=== PATIENT | male | born 1945 | race Caucasian/White ===

== ENCOUNTER 2017-08-10 11:54 | Inpatient (IN) | payer MEDICARE, OTHER ==
--- NOTE | 2017-08-10 12:48 | PDOC ---
History of Present Illness - General Chief Complaint: Rectal Bleed Stated Complaint: BLOOD IN STOOL Time Seen by Provider: 08/10/17 12:00 - History of Present Illness Initial Comments: 08/10/17 12:43 Patient is 71 y.o. male with a PMH of AFib (on Eloquis), CAD (s/p CABG), Aortic Valve Replacement (patient uncertain if prosthetic or mechanical valve) and COPD (/ to 05/18 exposure), CKD and recently diagnosed CHF who presents to our ED today c/o c/o 1 day h/o of rectal bleed (dark red blood) as well as intermittent abdominal cramping and increased urgency for bowel movement. Patient states he first noticed the blood yesterday evening and it continued through this morning (bloody BM x4) prompting his visit to the ED. Patient is tolerating PO intake and denies any nausea, vomiting, diarrhea or constipation. Patient states he had a colonoscopy 5 years previous which was normal. Of note, patient was evaluated @ [place] ED on 07/31 for B/L LE swelling at which time he left AMA. NKDA Surgical: denies FH: Diverticulitis in daughter and mother Social: denies cigarettes, denies alcohol, denies recreational drugs PMD: Dr. Aldrich; [facility] Restorer: Dr. Peggy Yuen Past History - Past Medical History Allergies/Adverse Reactions: Allergies Allergy/AdvReac Type Severity Reaction Status Date / Time No Known Allergies Allergy Verified 08/10/17 12:02 Home Medications: Ambulatory Orders Albuterol 0.083% Nebulizer Kristyn [Ventolin 0.083%] 1 neb NEB QID PRN 04/02/16 Apixaban [Eliquis] 5 mg PO BID 04/02/16 Aspirin [ASA -] 81 mg PO DAILY 04/02/16 Atorvastatin Calcium 20 mg PO HS 04/02/16 Azelastine HCl [Astepro] 1 - 2 spr NS BID 04/02/16 Budesonide/Formeterol Fumarate [SYMBICORT 160/4.5mcg -] 1 inh PO DAILY 04/02/16 Cholecalciferol (Vitamin D3) [Vitamin D3 -] 3,000 unit PO DAILY 04/02/16 Ethambutol HCl [Myambutol -] 400 mg PO DAILY 04/02/16 Furosemide [Lasix -] 20 mg PO DAILY 04/02/16 Hydralazine HCl [Apresoline -] 50 mg PO BID 04/02/16 Levalbuterol Tartrate [Xopenex Hfa] 15 gm IH DAILY PRN 04/02/16 Metoprolol Succinate [Toprol Xl -] 25 mg PO DAILY 04/02/16 Montelukast Na [Singulair -] 10 mg PO HS 04/02/16 Omeprazole [Prilosec] 40 mg PO BID 04/02/16 Tamsulosin HCl [Flomax] 0.4 mg PO HS 04/02/16 Tiotropium [place] [Spiriva] 1 inh PO DAILY 04/02/16 Trazodone HCl [Desyrel -] 100 mg PO HS 04/02/16 Zolpidem Tartrate [Ambien] 10 mg PO HS 04/02/16 Valsartan 320 mg PO DAILY 08/10/17 Cardiac Disorders: Yes (chf) COPD: Yes HTN: Yes - Surgical History Cardiac Surgery: Yes (tripple bipass ppmd) Neurologic Surgery: Yes (back) - Immunization History Immunization Up to Date: Yes - Suicide/Smoking/Psychosocial Hx Smoking History: Former smoker Have you smoked in the past 12 months: No Information on smoking cessation initiated: No Hx Alcohol Use: No Drug/Substance Use Hx: No Substance Use Type: None Review of Systems - Review of Systems Constitutional: No: Chills, Fever Respiratory: No: Shortness of Breath Cardiac (ROS): No: Chest Pain ABD/GI: Yes: Blood Streaked Bowels, Abdominal cramping. No: Constipated, Diarrhea, Nausea, Vomiting : No: Burning, Dysuria All Other Systems: Reviewed and Negative *Physical Exam - Vital Signs Last Vital Signs Temp Pulse Resp BP Pulse Ox 97.7 F 83 18 91/60 100 08/10/17 12:03 08/10/17 12:03 08/10/17 12:03 08/10/17 12:03 08/10/17 12:03 - Physical Exam General Appearance: Yes: Nourished, Appropriately Dressed Neck: positive: Trachea midline, Supple Respiratory/Chest: positive: Lungs Clear Cardiovascular: positive: S1, S2, Edema (B/L 3+ pitting edema from ankles to mid -calf muscle ) Gastrointestinal/Abdominal: positive: Normal Bowel Sounds, Soft, Protuberent. negative: Distended, Rebound, Tenderness, Hernia, Mass Rectal Exam: positive: heme positive stool (johnny blood on FOBT) Musculoskeletal: negative: CVA Tenderness (R), CVA Tenderness (L) Extremity: positive: Normal Capillary Refill, Normal Inspection Integumentary: positive: Normal Color, Dry, Warm Neurologic: positive: Fully Oriented, Alert ED Treatment Course - LABORATORY CBC & Chemistry Diagram: 08/10/17 12:38 08/10/17 12:38 - ADDITIONAL ORDERS Additional order review: Laboratory Results 08/10/17 12:00 Stool Occult Blood Negative Medical Decision Making - Medical Decision Making Patient is a 71 y.o. male who presents with 1 day h/o of rectal bleed. On PE, no appreciable hemorrhoid. Initial DDx is for diverticular disease vs. colon malignancy vs. acute abdomen (low clinical suspicion). PLAN: 1. CBC, CMP, Lactic Acid, Lipase 08/10/17 12:45 Hb 9.5 (previous Hb 13 on 07/31) --? 1 unit PRBC; Lactic Acid 2.7 --> gentle ( 500 mL hydration); Lipase wnL; Cr 5.0 (3.8 on 07/31) Attending Physician Dr. Vuong spoke with Dr. Yuen who notes a concern for possible worsening CKD. Patient admitted to Dr. Escobar with GI consult placed (Renetta). Patient ambulatory, tolerating PO intake, has repeat bloody BM while in ED. Repeat Lactic Acid, CBC ordered for 1800. 08/10/17 17:51 Case d/w Dr. Jackson, requests FFP + 2 units platelets given patient on A/C. Will continue to monitor patient while in ED. *DC/Admit/Observation/Transfer Diagnosis at time of Disposition: Rectal bleeding - Discharge Dispostion Condition at time of disposition: Fair Admit: Yes - Referrals - Patient Instructions - Post Discharge Activity
[2017-08-10 12:57] LABS: BASO % 0.5 % (0-2.0); EOS % 1.5 % (0-4.5); HEMOGLOBIN 9.5 GM/dL (11.7-16.9); LYMPH % 4.5 % (8-40); MCH 29.4 pg (25.7-33.7); MCHC 31.7 g/dl (32.0-35.9); MEAN PLT VOLUME 8.6 fl (7.5-11.1); MONO % 5.7 % (3.8-10.2); NEUT % 87.8 % (42.8-82.8); PLATELET COUNT 136 K/MM3 (134-434); RBC 3.23 M/mm3 (4.00-5.60); RDW 15.3 % (11.9-15.9); WHITE BLOOD COUNT 14.7 K/mm3 (4.0-10.0)
--- NOTE | 2017-08-10 13:15 | EKG ---
Test Reason : Blood Pressure : / mmHG Vent. Rate : 063 BPM Atrial Rate : 394 BPM P-R Int : 000 ms QRS Dur : 180 ms QT Int : 506 ms P-R-T Axes : 000 -88 075 degrees QTc Int : 517 ms Ventricular-paced rhythm WITH PREMATURE VENTRICULAR OR ABERRANTLY CONDUCTED COMPLEXES ABNORMAL ECG WHEN COMPARED WITH ECG OF 31-JUL-2017 12:04, VENT. RATE HAS DECREASED BY 2 BPM Confirmed by NETTA FITZPATRICK MD ([id number]) on 08/10/2017 1:15:27 PM Referred By: Confirmed By:NETTA FITZPATRICK MD
--- NOTE | 2017-08-10 13:17 | PDOC ---
Attending Attestation - Resident Resident Name: DiannaSofía - ED Attending Attestation I have performed the following: I have examined & evaluated the patient, The case was reviewed & discussed with the resident, I agree w/resident's findings & plan, Exceptions are as noted - HPI HPI: 08/10/17 13:06 71-year-old male with multiple medical problems including h/o afib/flutter on eliquis, AVR, CAD/CHF, COPD, CKD p/w persistent SOB despite increased doses of lasix over the last 1-2 weeks and 5 episodes since last night of painless BRBPR. CTAP in 2016 shows extensive diverticulosis, per patient no h/o recurring GI bleed. - Physicial Exam PE: 08/10/17 13:07 VSS well appearing no jaundice/pallor abd soft/nd. discomfort in the LLQ, no guarding/rebound. gross red blood on rectal per resident. 2+ edema b/l - Medical Decision Making 08/10/17 13:18 Patient seen and evaluated with the resident. I agree with the overall evaluation, assessment, and management with the following summary of visit: 71-year-old male with multiple medical problems p/w several episodes of BRBPR, benign abd exam, HD stable. Could be consistent with diverticular bleed. Also with recent volume overload taking lasix, ? persistent CHF exacerbation v. worsening CKD. labs, t+s ivf, tx prbc as needed admit, discussed with Dr. Nato Orellana Heart Score/ECG Review #1 08/10/17 13:34 v-paced at 63 with single PVC noted
[2017-08-10 13:19] LABS: INR 1.5 (0.82-1.09)
[2017-08-10 13:22] LABS: ACTIVATED PTT 26.5 SECONDS (26.9-34.4)
[2017-08-10 13:23] LABS: ALBUMIN 2.2 g/dl (3.4-5.0); ANION GAP 12 (8-16); BLOOD UREA NITROGEN 103 mg/dL (7-18); CALCIUM 7.6 mg/dL (8.5-10.1); CHLORIDE 105 mmol/L (98-107); CO2 22 mmol/L (21-32); GLUCOSE,RANDOM 156 mg/dL (74-106); LIPASE 129 U/L (73-393); POTASSIUM 4.6 mmol/L (3.5-5.1); SGOT/AST 5 U/L (15-37); SGPT/ALT 15 U/L (12-78); SODIUM 139 mmol/L (136-145)
[2017-08-10 13:25] LABS: ALK PHOS 59 U/L (45-117); BILIRUBIN,TOTAL 0.3 mg/dL (0.2-1.0); TOT PROT 4.5 g/dl (6.4-8.2)
[2017-08-10] MEDS ORDERED: SODIUM CHLORIDE 0.9% 1000 ML INFUS.BAG IV ONE (14:04)
--- NOTE | 2017-08-10 18:54 | CON.GI ---
Consult Consult Specialty:: gastroenterology Referred by:: Dr Escobar Reason for Consultation:: lower gi bleeding - History of Present Illness History of Present Illness: 71 y/o male with PMH of COPD, CHF was asked to be seen because of recurrent painless rectal bleeding since this morning. He denies LOC, chest pain and SOB. He complains of lower abdominal pain. He is very upset and refuses to go to thee ICU. He was made aware that will be monitored better in the iCU and prevent further complications of acute gi bleeding which could be life threatening. He is is taking Eliquis twice a day. His last dose was 7pm last night. His last colonoscopy was 5 years ago. - History Source History Provided By: Patient - Past Medical History Cardio/Vascular: Yes: CAD, CHF Pulmonary: Yes: COPD - Alcohol/Substance Use Hx Alcohol Use: No - Smoking History Smoking history: Former smoker Have you smoked in the past 12 months: No Home Medications - Allergies Allergies/Adverse Reactions: Allergies Allergy/AdvReac Type Severity Reaction Status Date / Time No Known Allergies Allergy Verified 08/10/17 12:02 - Home Medications Home Medications: Ambulatory Orders Albuterol 0.083% Nebulizer Kristyn [Ventolin 0.083%] 1 neb NEB QID PRN 04/02/16 Apixaban [Eliquis] 5 mg PO BID 04/02/16 Aspirin [ASA -] 81 mg PO DAILY 04/02/16 Atorvastatin Calcium 20 mg PO HS 04/02/16 Azelastine HCl [Astepro] 1 - 2 spr NS BID 04/02/16 Budesonide/Formeterol Fumarate [SYMBICORT 160/4.5mcg -] 1 inh PO DAILY 04/02/16 Cholecalciferol (Vitamin D3) [Vitamin D3 -] 3,000 unit PO DAILY 04/02/16 Ethambutol HCl [Myambutol -] 400 mg PO DAILY 04/02/16 Furosemide [Lasix -] 20 mg PO DAILY 04/02/16 Hydralazine HCl [Apresoline -] 50 mg PO BID 04/02/16 Levalbuterol Tartrate [Xopenex Hfa] 15 gm IH DAILY PRN 04/02/16 Metoprolol Succinate [Toprol Xl -] 25 mg PO DAILY 04/02/16 Montelukast Na [Singulair -] 10 mg PO HS 04/02/16 Omeprazole [Prilosec] 40 mg PO BID 04/02/16 Tamsulosin HCl [Flomax] 0.4 mg PO HS 04/02/16 Tiotropium [place] [Spiriva] 1 inh PO DAILY 04/02/16 Trazodone HCl [Desyrel -] 100 mg PO HS 04/02/16 Zolpidem Tartrate [Ambien] 10 mg PO HS 04/02/16 Valsartan 320 mg PO DAILY 08/10/17 Physical Exam-GI Vital Signs: Vital Signs Temperature 97.7 F 08/10/17 12:03 Pulse Rate 80 08/10/17 17:15 Respiratory Rate 16 08/10/17 17:15 Blood Pressure 109/65 08/10/17 17:15 O2 Sat by Pulse Oximetry (%) 100 08/10/17 17:15 Constitutional: Yes: Well Nourished Eyes: Yes: Conjunctiva Clear HENT: Yes: Atraumatic Neck: Yes: Supple Cardiovascular: Yes: Regular Rate and Rhythm Respiratory: Yes: CTA Bilaterally ...Palpate: Yes: Soft, Tenderness (--mild suprapubic pain). No: Firm/Rigid, Guarding, Hepatomegaly, Mass, Pulsatile Mass, Splenomegaly Labs: CBC, BMP 08/10/17 12:38 08/10/17 12:38 INR, PTT INR 1.50 (0.82-1.09) H 08/10/17 12:54 Problem List - Problems (1) Abdominal pain Assessment/Plan: associated with suprapubic pain and elevated WBC r/o ischemic colitis R>consider Cardiology and Pulmonary consult, renal conult IV Ceftriaxone and IV flagyl IV hydration if possible Code(s): R10.9 - UNSPECIFIED ABDOMINAL PAIN
[2017-08-10] MEDS ORDERED: CEFTRIAXONE 1,000 MG in DEXTROSE 5%-WATER - 50 ML IVPB ONE (19:12)
[2017-08-10] MEDS ORDERED: CEFTRIAXONE 1 G/50 ML PREMIX 50 ML IVPB ONE (19:15)
--- NOTE | 2017-08-10 20:07 | HP ---
Admitting History and Physical - Primary Care Physician PCP: Ti Escobar - Admission History of Present Illness: Patient is 71 y.o. male with a PMH of AFib (on Eloquis), CAD (s/p CABG), Aortic Valve Replacement (patient uncertain if prosthetic or mechanical valve) and COPD (/ to 05/18 exposure), CKD and recently diagnosed CHF who presents to our ED today c/o c/o 1 day h/o of rectal bleed (dark red blood) as well as intermittent abdominal cramping and increased urgency for bowel movement. Patient states he first noticed the blood yesterday evening and it continued through this morning (bloody BM x4) prompting his visit to the ED. Patient is tolerating PO intake and denies any nausea, vomiting, diarrhea or constipation. Patient states he had a colonoscopy 5 years previous which was normal. Of note, patient was evaluated @ [place] ED on 07/31 for B/L LE swelling at which time he left AMA. - Past Medical History Cardiovascular: Yes: CAD, CHF Pulmonary: Yes: COPD - Smoking History Smoking history: Former smoker Have you smoked in the past 12 months: No - Alcohol/Substance Use Hx Alcohol Use: No Home Medications - Allergies Allergies/Adverse Reactions: Allergies Allergy/AdvReac Type Severity Reaction Status Date / Time No Known Allergies Allergy Verified 08/10/17 12:02 - Home Medications Home Medications: Ambulatory Orders Albuterol 0.083% Nebulizer Kristyn [Ventolin 0.083%] 1 neb NEB QID PRN 04/02/16 Apixaban [Eliquis] 5 mg PO BID 04/02/16 Aspirin [ASA -] 81 mg PO DAILY 04/02/16 Atorvastatin Calcium 20 mg PO HS 04/02/16 Azelastine HCl [Astepro] 1 - 2 spr NS BID 04/02/16 Budesonide/Formeterol Fumarate [SYMBICORT 160/4.5mcg -] 1 inh PO DAILY 04/02/16 Cholecalciferol (Vitamin D3) [Vitamin D3 -] 3,000 unit PO DAILY 04/02/16 Ethambutol HCl [Myambutol -] 400 mg PO DAILY 04/02/16 Furosemide [Lasix -] 20 mg PO DAILY 04/02/16 Levalbuterol Tartrate [Xopenex Hfa] 15 gm IH DAILY PRN 04/02/16 Montelukast Na [Singulair -] 10 mg PO HS 04/02/16 Omeprazole [Prilosec] 40 mg PO BID 04/02/16 Tamsulosin HCl [Flomax] 0.4 mg PO HS 04/02/16 Tiotropium [place] [Spiriva] 1 inh PO DAILY 04/02/16 Trazodone HCl [Desyrel -] 100 mg PO HS 04/02/16 Zolpidem Tartrate [Ambien] 10 mg PO HS 04/02/16 Carvedilol 12.5 mg PO DAILY 08/10/17 Triamcinolone Acetonide [Nasacort] 1 inh BID 08/10/17 Valsartan 320 mg PO DAILY 08/10/17 Physical Examination Vital Signs: Vital Signs Temperature 97.7 F 08/10/17 12:03 Pulse Rate 80 08/10/17 17:15 Respiratory Rate 16 08/10/17 17:15 Blood Pressure 109/65 08/10/17 17:15 O2 Sat by Pulse Oximetry (%) 100 08/10/17 17:15 Constitutional: Yes: No Distress HENT: Yes: Atraumatic Neck: Yes: Supple Cardiovascular: Yes: Regular Rate and Rhythm Respiratory: Yes: CTA Bilaterally Gastrointestinal: Yes: Normal Bowel Sounds Extremities: Yes: WNL Edema: RUE: 1+, LLE: 1+ Neurological: Yes: Alert, Oriented Labs: CBC, BMP 08/10/17 12:38 08/10/17 12:38 Problem List - Problems (1) Rectal bleeding Code(s): K62.5 - HEMORRHAGE OF ANUS AND RECTUM (2) CHF (congestive heart failure) Code(s): I50.9 - HEART FAILURE, UNSPECIFIED Qualifiers: Congestive heart failure type: combined Congestive heart failure chronicity : acute on chronic Qualified Code(s): I50.43 - Acute on chronic combined systolic (congestive) and diastolic (congestive) heart failure (3) Acute diverticulitis Code(s): K57.92 - DVTRCLI OF INTEST, PART UNSP, W/O PERF OR ABSCESS W/O BLEED (4) Anemia Code(s): D64.9 - ANEMIA, UNSPECIFIED (5) CKD (chronic kidney disease) Code(s): N18.9 - CHRONIC KIDNEY DISEASE, UNSPECIFIED Qualifiers: Chronic kidney disease stage: stage 4 (severe) Qualified Code(s): N18.4 - Chronic kidney disease, stage 4 (severe) (6) CHF Congestive heart failure Code(s): I50.9 - HEART FAILURE, UNSPECIFIED Assessment/Plan Laboratory Tests 08/10/17 08/10/17 08/10/17 12:00 12:38 12:38 WBC 14.7 H D RBC 3.23 L D Hgb 9.5 L D Hct 30.0 L D MCV 93.0 MCH 29.4 MCHC 31.7 L RDW 15.3 Plt Count 136 D MPV 8.6 D Neutrophils % 87.8 H Lymphocytes % 4.5 L D Monocytes % 5.7 Eosinophils % 1.5 Basophils % 0.5 PT with INR INR PTT (Actin FS) Sodium 139 Potassium 4.6 D Chloride 105 Carbon Dioxide 22 Anion Gap 12 BUN 103 H D Creatinine 5.0 H D Creat Clearance w eGFR 11.46 Random Glucose 156 H D Lactic Acid Calcium 7.6 L Total Bilirubin 0.3 D AST 5 L D ALT 15 D Alkaline Phosphatase 59 D B-Natriuretic Peptide Total Protein 4.5 L D Albumin 2.2 L D Lipase 129 Stool Occult Blood Negative Blood Type Antibody Screen Crossmatch 08/10/17 08/10/17 08/10/17 12:38 12:54 13:00 WBC RBC Hgb Hct MCV MCH MCHC RDW Plt Count MPV Neutrophils % Lymphocytes % Monocytes % Eosinophils % Basophils % PT with INR 17.00 H INR 1.50 H PTT (Actin FS) 26.5 L Sodium Potassium Chloride Carbon Dioxide Anion Gap BUN Creatinine Creat Clearance w eGFR Random Glucose Lactic Acid 2.7 H* Calcium Total Bilirubin AST ALT Alkaline Phosphatase B-Natriuretic Peptide 3344.85 H Total Protein Albumin Lipase Stool Occult Blood Blood Type Antibody Screen Crossmatch 08/10/17 14:50 WBC RBC Hgb Hct MCV MCH MCHC RDW Plt Count MPV Neutrophils % Lymphocytes % Monocytes % Eosinophils % Basophils % PT with INR INR PTT (Actin FS) Sodium Potassium Chloride Carbon Dioxide Anion Gap BUN Creatinine Creat Clearance w eGFR Random Glucose Lactic Acid Calcium Total Bilirubin AST ALT Alkaline Phosphatase B-Natriuretic Peptide Total Protein Albumin Lipase Stool Occult Blood Blood Type A POSITIVE Antibody Screen Negative Crossmatch See Detail Active Medications Generic Name Dose Route Start Last Admin Trade Name Freq PRN Reason Stop Dose Admin Atorvastatin Calcium 20 mg 08/10/17 22:00 Lipitor - PO HS EDY Budesonide/Formoterol Fumarate 1 puff 08/11/17 10:00 Symbicort 160/4.5mcg - IH DAILY EDY Ethambutol HCl 400 mg 08/11/17 10:00 Myambutol - PO DAILY EDY Furosemide 20 mg 08/11/17 10:00 Lasix - PO DAILY [facility] Hydralazine HCl 50 mg 08/10/17 22:00 Apresoline - PO BID [facility] Metoprolol Succinate 25 mg 08/11/17 10:00 Toprol Xl - PO DAILY [facility] Montelukast Sodium 10 mg 08/10/17 22:00 Singulair - PO HS [facility] Non-Formulary Medication 320 mg 08/11/17 10:00 Valsartan [Valsartan] PO DAILY EDY Non-Formulary Medication 10 mg 08/10/17 22:00 Zolpidem Tartrate [Ambien] PO HS [facility] Tamsulosin HCl 0.4 mg 08/10/17 22:00 Flomax - PO HS [facility] Tiotropium [place] 1 puff 08/11/17 10:00 Spiriva - IH DAILY EDY Trazodone HCl 100 mg 08/10/17 22:00 Desyrel - PO HS EDY
[2017-08-10] MEDS ORDERED: hydrALAZINE HCL 50 MG TABLET (FP) PO SCH (20:15)
[2017-08-10] MEDS: ATORVASTATIN CA 20 MG TABLET (FP) PO SCH (20:32)
[2017-08-10] MEDS: MONTELUKAST NA 10 MG TABLET PO SCH (20:32)
[2017-08-10] MEDS: TAMSULOSIN HCL 0.4 MG CAP.ER.24H (FP) PO SCH (20:33)
[2017-08-10 22:01] LABS: HEMATOCRIT 26.8 % (35.4-49); HEMOGLOBIN 8.6 GM/dL (11.7-16.9); MCH 29.7 pg (25.7-33.7); MCHC 32.1 g/dl (32.0-35.9); MEAN CELL VOLUME 92.5 fl (80-96); MEAN PLT VOLUME 9.1 fl (7.5-11.1); PLATELET COUNT 140 K/MM3 (134-434); RDW 15.3 % (11.9-15.9); WHITE BLOOD COUNT 18.1 K/mm3 (4.0-10.0)
[2017-08-10] MEDS: FLUTICASONE PROP 0.05% 16 GM NASAL SPRAY NS SCH (22:35)
[2017-08-10] MEDS ORDERED: XOPENEX IH PRN (23:14)
[2017-08-10] MEDS: traZODone HCL 100 MG TABLET (FP) PO SCH (23:28)
[2017-08-10] MEDS: ALBUTEROL SO4 0.083% IH SOL 2.5 MG/3 ML VIAL.NEB. NEB PRN (23:30)
[2017-08-10] MEDS: ZOLPIDEM TARTRATE 5 MG TABLET PO PRN (23:30)
[2017-08-10] MEDS: PANTOPRAZOLE 40 MG TABLET (FP) PO SCH (23:36)
[2017-08-11 05:16] VITALS: BMI 29.6
[2017-08-11] MEDS: ALBUTEROL SO4 0.083% IH SOL 2.5 MG/3 ML VIAL.NEB. NEB PRN ×2 (06:54→23:23)
[2017-08-11] MEDS ORDERED: VALSARTAN 160 MG TABLET (UD) PO SCH (10:00)
[2017-08-11] MEDS ORDERED: ETHAMBUTOL HCL 400 MG TABLET PO SCH (10:00)
[2017-08-11] MEDS ORDERED: METOPROLOL SUCCINATE 25 MG TAB.SR.24H (FP) PO SCH (10:00)
[2017-08-11] MEDS ORDERED: FUROSEMIDE 20 MG TABLET (FP) PO SCH (10:00)
[2017-08-11] MEDS ORDERED: ASTEPRO NR SCH (10:00)
[2017-08-11 10:51] LABS: BASO % 0.3 % (0-2.0); EOS % 0.9 % (0-4.5); HEMATOCRIT 28.6 % (35.4-49); HEMOGLOBIN 9.2 GM/dL (11.7-16.9); LYMPH % 4.1 % (8-40); MCH 29.6 pg (25.7-33.7); MCHC 32.2 g/dl (32.0-35.9); MEAN CELL VOLUME 91.9 fl (80-96); MEAN PLT VOLUME 8.7 fl (7.5-11.1); MONO % 4.2 % (3.8-10.2); NEUT % 90.5 % (42.8-82.8); PLATELET COUNT 129 K/MM3 (134-434); RBC 3.11 M/mm3 (4.00-5.60); RDW 14.8 % (11.9-15.9); WHITE BLOOD COUNT 15.4 K/mm3 (4.0-10.0)
[2017-08-11] MEDS: CARVEDILOL 12.5 MG TABLET (FP) PO SCH (11:07)
[2017-08-11] MEDS: FLUTICASONE PROP 0.05% 16 GM NASAL SPRAY NS SCH ×2 (11:08→23:05)
[2017-08-11] MEDS: PANTOPRAZOLE 40 MG TABLET (FP) PO SCH ×2 (11:09→23:05)
[2017-08-11] MEDS: TIOTROPIUM BROMIDE 18 MCG/INH (DEVICE W/ 5 CAPSULES) IH SCH (11:09)
[2017-08-11] MEDS: BUDESONIDE/FORMETEROL FUMARATE 160/4.5 mcg INHALER IH SCH (11:12)
[2017-08-11 11:22] LABS: ALBUMIN 2.4 g/dl (3.4-5.0); ANION GAP 14 (8-16); CHLORIDE 105 mmol/L (98-107); CO2 20 mmol/L (21-32); GLUCOSE,RANDOM 148 mg/dL (74-106); POTASSIUM 4.3 mmol/L (3.5-5.1); SODIUM 139 mmol/L (136-145)
[2017-08-11 11:30] LABS: ALK PHOS 67 U/L (45-117); BILIRUBIN,TOTAL 0.5 mg/dL (0.2-1.0); CREATININE 5.3 mg/dL (0.7-1.3); SGPT/ALT 16 U/L (12-78); TOT PROT 4.9 g/dl (6.4-8.2)
[2017-08-11 11:33] LABS: SGOT/AST 4 U/L (15-37)
[2017-08-11 11:35] LABS: BLOOD UREA NITROGEN 111 mg/dL (7-18)
--- NOTE | 2017-08-11 13:43 | CONSULT ---
Consult Consult Specialty:: Nephrology Reason for Consultation:: ALAN on CKD - History of Present Illness Chief Complaint: blood per rectum History of Present Illness: Pt is a 71 year old male with pmhx of a-fib, CKD, CAD, aortic valve replacement , CHF and COPD who presents to the ER with rectal bleeding. He says that the bleeding began yesterday however he has not had any episodes today. He has history of CKD and follows with Dr Orellana. He was found to have worsening of his renal function and I was called to evaluate him. He denies dysuria or hematuria. He does experience some shortness of breath with activity. He also complains of lower extremity edema. He denies nsaid use. He says he is hungry and has appetite. - History Source History Provided By: Patient, Medical Record - Past Medical History Cardio/Vascular: Yes: AFIB, CAD, CHF Pulmonary: Yes: COPD Gastrointestinal: Yes: Constipation, GI Bleed Renal/: Yes: Renal Failure, Renal Inusuff Heme/Onc: Yes: Anemia - Alcohol/Substance Use Hx Alcohol Use: No - Smoking History Smoking history: Former smoker Have you smoked in the past 12 months: No Home Medications - Allergies Allergies/Adverse Reactions: Allergies Allergy/AdvReac Type Severity Reaction Status Date / Time No Known Allergies Allergy Verified 08/10/17 12:02 - Home Medications Home Medications: Ambulatory Orders Albuterol 0.083% Nebulizer Kristyn [Ventolin 0.083%] 1 neb NEB QID PRN 04/02/16 Apixaban [Eliquis] 5 mg PO BID 04/02/16 Aspirin [ASA -] 81 mg PO DAILY 04/02/16 Atorvastatin Calcium 20 mg PO HS 04/02/16 Azelastine HCl [Astepro] 1 - 2 spr NS BID 04/02/16 Budesonide/Formeterol Fumarate [SYMBICORT 160/4.5mcg -] 1 inh PO DAILY 04/02/16 Cholecalciferol (Vitamin D3) [Vitamin D3 -] 3,000 unit PO DAILY 04/02/16 Ethambutol HCl [Myambutol -] 400 mg PO DAILY 04/02/16 Furosemide [Lasix -] 20 mg PO DAILY 04/02/16 Levalbuterol Tartrate [Xopenex Hfa] 15 gm IH DAILY PRN 04/02/16 Montelukast Na [Singulair -] 10 mg PO HS 04/02/16 Omeprazole [Prilosec] 40 mg PO BID 04/02/16 Tamsulosin HCl [Flomax] 0.4 mg PO HS 04/02/16 Tiotropium [place] [Spiriva] 1 inh PO DAILY 04/02/16 Trazodone HCl [Desyrel -] 100 mg PO HS 04/02/16 Zolpidem Tartrate [Ambien] 10 mg PO HS 04/02/16 Carvedilol 12.5 mg PO DAILY 08/10/17 Triamcinolone Acetonide [Nasacort] 1 inh BID 08/10/17 Valsartan 320 mg PO DAILY 08/10/17 Family Disease History - Family Disease History Family History: Denies Review of Systems - Review of Systems Constitutional: reports: Malaise Eyes: reports: No Symptoms HENT: reports: No Symptoms Neck: reports: No Symptoms Cardiovascular: reports: Edema, Shortness of Breath Respiratory: reports: SOB on Exertion Gastrointestinal: reports: Rectal Bleeding Genitourinary: reports: No Symptoms Musculoskeletal: reports: No Symptoms Integumentary: reports: No Symptoms Neurological: reports: No Symptoms Endocrine: reports: No Symptoms Hematology/Lymphatic: reports: No Symptoms Psychiatric: reports: No Symptoms Physical Exam Vital Signs: Vital Signs Temperature 98.9 F 08/11/17 13:30 Pulse Rate 61 08/11/17 13:30 Respiratory Rate 20 08/11/17 13:30 Blood Pressure 97/40 08/11/17 13:30 O2 Sat by Pulse Oximetry (%) 96 08/11/17 11:03 Constitutional: Yes: Calm Eyes: Yes: Conjunctiva Clear HENT: Yes: Atraumatic Cardiovascular: Yes: S1, S2 Respiratory: Yes: Rhonchi Gastrointestinal: Yes: Soft, Abdomen, Obese Renal/: Yes: WNL. No: CVA Tenderness - Left, CVA Tenderness - Right Musculoskeletal: Yes: WNL Edema: Yes Edema: LLE: 2+, RLE: 2+ Neurological: Yes: Oriented Psychiatric: Yes: Oriented Labs: CBC, BMP 08/11/17 10:22 08/11/17 10:22 Laboratory Tests 08/10/17 08/10/17 08/10/17 12:38 12:38 13:00 BUN 103 H D Creatinine 5.0 H D Random Glucose 156 H D Lactic Acid 2.7 H* B-Natriuretic Peptide 3344.85 H 08/10/17 08/11/17 21:00 10:22 BUN 111 H* Creatinine 5.3 H Random Glucose 148 H Lactic Acid 2.6 H* B-Natriuretic Peptide Imaging - Results Cat Scan: Report Reviewed Problem List - Problems (1) CKD (chronic kidney disease) Code(s): N18.9 - CHRONIC KIDNEY DISEASE, UNSPECIFIED (2) Anemia Code(s): D64.9 - ANEMIA, UNSPECIFIED (3) Abdominal pain Code(s): R10.9 - UNSPECIFIED ABDOMINAL PAIN (4) Rectal bleeding Code(s): K62.5 - HEMORRHAGE OF ANUS AND RECTUM (5) Acute exacerbation of COPD with asthma Code(s): J44.1 - CHRONIC OBSTRUCTIVE PULMONARY DISEASE W (ACUTE) EXACERBATION; J45.901 - UNSPECIFIED ASTHMA WITH (ACUTE) EXACERBATION (6) CHF (congestive heart failure) Code(s): I50.9 - HEART FAILURE, UNSPECIFIED Qualifiers: Congestive heart failure type: combined Congestive heart failure chronicity : acute on chronic Qualified Code(s): I50.43 - Acute on chronic combined systolic (congestive) and diastolic (congestive) heart failure Assessment/Plan Current Medications Generic Name Dose Route Start Last Admin Trade Name Freq PRN Reason Stop Dose Admin Albuterol Sulfate 1 amp 08/10/17 23:12 08/11/17 06:54 Ventolin 0.083% Nebulizer Soln - NEB 1 amp Q6H PRN Administration SHORT OF BREATH/WHEEZING Atorvastatin Calcium 20 mg 08/10/17 20:15 08/10/17 20:32 Lipitor - PO 20 mg HS EDY Administration Budesonide/Formoterol Fumarate 1 puff 08/11/17 10:00 08/11/17 11:12 Symbicort 160/4.5mcg - IH 1 puff DAILY EDY Administration Carvedilol 12.5 mg 08/11/17 10:00 08/11/17 11:07 Coreg - PO Not Given DAILY EDY Fluticasone Propionate 1 spray 08/10/17 22:00 08/11/17 11:08 Flonase - NS 1 spray BID EDY Administration CEFTRIAXONE 1 G/50 ML PREMIX 50 mls @ 100 mls/hr 08/11/17 15:15 Ceftriaxone 1 Gm-D5w Bag IVPB DAILY EDY Montelukast Sodium 10 mg 08/10/17 20:15 08/10/17 20:32 Singulair - PO 10 mg HS EDY Administration Xopenex Hfa Inhaler 1 each 08/10/17 23:14 Non-Formulary Med IH DAILY PRN Astepro (Nasal) Non- 1 each 08/11/17 10:00 Formulary Med NR BID EDY Pantoprazole Sodium 40 mg 08/10/17 23:15 08/11/17 11:09 Protonix - PO Not Given BID EDY Tamsulosin HCl 0.4 mg 08/10/17 20:15 08/10/17 20:33 Flomax - PO 0.4 mg HS EDY Administration Tiotropium [place] 1 puff 08/11/17 10:00 08/11/17 11:09 Spiriva - IH 1 puff DAILY EDY Administration Trazodone HCl 100 mg 08/10/17 22:00 08/10/17 23:28 Desyrel - PO 100 mg HS EDY Administration Zolpidem Tartrate 5 mg 08/10/17 22:00 08/10/17 23:30 Ambien - PO 5 mg HS PRN Administration Impression 1. CKD 2. ALAN 3. anemia 4. GI bleed 5. BPH 6. a-fib 7. aortic aneurysm 8. COPD 9. insomnia Plan - pt does have worsening of his renal function - will check renal ultrasound - check ua and lytes - will give a dose of lasix as he appears volume overloaded - GI follow up - called and discussed with pts beater tender, his last creatinine was about 4 as outpt - may need HD therapy if he does not improve - agree with holding diovan - will follow pt closely - pt was threatening to leave AMA, I discussed all the findings with him at length and I recommend that he stays for workup - will need to se vascular surgery as well Dr Ortega
[2017-08-11] MEDS ORDERED: CEFTRIAXONE 1 G/50 ML PREMIX 50 ML IVPB SCH (15:15)
--- NOTE | 2017-08-11 16:05 | CONSULT ---
Consult Consult Specialty:: anemia - History of Present Illness History of Present Illness: Pt is a 71 year old male with pmhx of a-fib, CKD, CAD, aortic valve replacement , CHF and COPD who presents to the ER with rectal bleeding. He is admitted for rectal bleeding. He also has worsening CKD. He underwent CT a /p consistent with acute diverticulitis. He has history of CKD and follows with Dr Orellana. Patient and seen examined for Anemia. - Past Medical History Cardio/Vascular: Yes: AFIB, CAD, CHF Pulmonary: Yes: COPD Gastrointestinal: Yes: Constipation, GI Bleed Renal/: Yes: Renal Failure, Renal Inusuff - Alcohol/Substance Use Hx Alcohol Use: No - Smoking History Smoking history: Former smoker Have you smoked in the past 12 months: No Home Medications - Allergies Allergies/Adverse Reactions: Allergies Allergy/AdvReac Type Severity Reaction Status Date / Time No Known Allergies Allergy Verified 08/10/17 12:02 - Home Medications Home Medications: Ambulatory Orders Albuterol 0.083% Nebulizer Kristyn [Ventolin 0.083%] 1 neb NEB QID PRN 04/02/16 Apixaban [Eliquis] 5 mg PO BID 04/02/16 Aspirin [ASA -] 81 mg PO DAILY 04/02/16 Atorvastatin Calcium 20 mg PO HS 04/02/16 Azelastine HCl [Astepro] 1 - 2 spr NS BID 04/02/16 Budesonide/Formeterol Fumarate [SYMBICORT 160/4.5mcg -] 1 inh PO DAILY 04/02/16 Cholecalciferol (Vitamin D3) [Vitamin D3 -] 3,000 unit PO DAILY 04/02/16 Ethambutol HCl [Myambutol -] 400 mg PO DAILY 04/02/16 Furosemide [Lasix -] 20 mg PO DAILY 04/02/16 Levalbuterol Tartrate [Xopenex Hfa] 15 gm IH DAILY PRN 04/02/16 Montelukast Na [Singulair -] 10 mg PO HS 04/02/16 Omeprazole [Prilosec] 40 mg PO BID 04/02/16 Tamsulosin HCl [Flomax] 0.4 mg PO HS 04/02/16 Tiotropium [place] [Spiriva] 1 inh PO DAILY 04/02/16 Trazodone HCl [Desyrel -] 100 mg PO HS 04/02/16 Zolpidem Tartrate [Ambien] 10 mg PO HS 04/02/16 Carvedilol 12.5 mg PO DAILY 08/10/17 Triamcinolone Acetonide [Nasacort] 1 inh BID 08/10/17 Valsartan 320 mg PO DAILY 08/10/17 Physical Exam Vital Signs: Vital Signs Temperature 98.9 F 08/11/17 13:30 Pulse Rate 61 08/11/17 13:30 Respiratory Rate 20 08/11/17 13:30 Blood Pressure 97/40 08/11/17 13:30 O2 Sat by Pulse Oximetry (%) 97 08/11/17 12:00 Labs: CBC, BMP 08/11/17 10:22 08/11/17 10:22 Problem List - Problems (1) Abdominal pain Code(s): R10.9 - UNSPECIFIED ABDOMINAL PAIN (2) Anemia Code(s): D64.9 - ANEMIA, UNSPECIFIED (3) Rectal bleeding Code(s): K62.5 - HEMORRHAGE OF ANUS AND RECTUM (4) Acute diverticulitis Code(s): K57.92 - DVTRCLI OF INTEST, PART UNSP, W/O PERF OR ABSCESS W/O BLEED (5) CKD (chronic kidney disease) Code(s): N18.9 - CHRONIC KIDNEY DISEASE, UNSPECIFIED Qualifiers: Chronic kidney disease stage: stage 4 (severe) Qualified Code(s): N18.4 - Chronic kidney disease, stage 4 (severe) Assessment/Plan anemia in the setting of GI bleed/Eliquis/Acute diverticulitis/CKD GI/Cardiology eval noted regular transfusions threshold for anemia labs eliquis on hold abx per GI/ID leucocytosis/mild thrombocytopenia likely from acute illness. coags reviewed, will follow
[2017-08-11] MEDS ORDERED: FUROSEMIDE 40 MG/4 ML INJECTABLE VIAL IVPUSH ONE (16:30)
[2017-08-11 18:14] LABS: URINE APPEARANCE SLCLOUDY; URINE BILIRUBIN NEGATIVE (NEGATIVE); URINE BLOOD NEGATIVE (NEGATIVE); URINE COLOR LTYELLOW; URINE GLUCOSE (UA) NEGATIVE (NEGATIVE); URINE KETONE NEGATIVE (NEGATIVE); URINE NITRITE NEGATIVE (NEGATIVE); URINE UROBILINOGEN NEGATIVE mg/dL (0.2-1.0)
[2017-08-11 18:18] LABS: URINE PROTEIN 2+ (NEGATIVE)
[2017-08-11 18:25] LABS: EPI CELLS RARE /HPF (FEW); URINE MUCUS RARE
[2017-08-11] MEDS ORDERED: LEVOFLOXACIN 500 MG IVPB 500 MG/100 ML BAG IVPB ONE (20:28)
--- NOTE | 2017-08-11 20:30 | PN ---
Progress Note, Physician History of Present Illness: doing well - Current Medication List Current Medications: Active Medications Albuterol Sulfate (Ventolin 0.083% Nebulizer Soln -) 1 amp NEB Q6H PRN PRN Reason: SHORT OF BREATH/WHEEZING Last Admin: 08/11/17 06:54 Dose: 1 amp Atorvastatin Calcium (Lipitor -) 20 mg PO HS [facility] Last Admin: 08/10/17 20:32 Dose: 20 mg Budesonide/Formoterol Fumarate (Symbicort 160/4.5mcg -) 1 puff IH DAILY [facility] Last Admin: 08/11/17 11:12 Dose: 1 puff Calcium Carbonate (Calcium Carb Oral Suspension -) 500 mg PO DAILY [facility] Carvedilol (Coreg -) 12.5 mg PO DAILY [facility] Last Admin: 08/11/17 11:07 Dose: Not Given Fluticasone Propionate (Flonase -) 1 spray NS BID [facility] Last Admin: 08/11/17 11:08 Dose: 1 spray CEFTRIAXONE 1 G/50 ML PREMIX (Ceftriaxone 1 Gm-D5w Bag) 50 mls @ 100 mls/hr IVPB DAILY [facility] Last Admin: 08/11/17 16:01 Dose: 100 mls/hr Montelukast Sodium (Singulair -) 10 mg PO HS [facility] Last Admin: 08/10/17 20:32 Dose: 10 mg Xopenex Hfa Inhaler (Non-Formulary Med) 1 each IH DAILY PRN Astepro (Nasal) Non- (Formulary Med) 1 each NR BID [facility] Pantoprazole Sodium (Protonix -) 40 mg PO BID [facility] Last Admin: 08/11/17 11:09 Dose: Not Given Tamsulosin HCl (Flomax -) 0.4 mg PO HS [facility] Last Admin: 08/10/17 20:33 Dose: 0.4 mg Tiotropium [place] (Spiriva -) 1 puff IH DAILY [facility] Last Admin: 08/11/17 11:09 Dose: 1 puff Trazodone HCl (Desyrel -) 100 mg PO HS [facility] Last Admin: 08/10/17 23:28 Dose: 100 mg Zolpidem Tartrate (Ambien -) 5 mg PO HS PRN Last Admin: 08/10/17 23:30 Dose: 5 mg - Objective Vital Signs: Vital Signs Temperature 98.0 F 08/11/17 18:00 Pulse Rate 74 08/11/17 18:00 Respiratory Rate 20 08/11/17 18:00 Blood Pressure 128/65 08/11/17 18:00 O2 Sat by Pulse Oximetry (%) 97 08/11/17 12:00 Constitutional: Yes: No Distress HENT: Yes: Atraumatic Neck: Yes: Supple Cardiovascular: Yes: Regular Rate and Rhythm Respiratory: Yes: CTA Bilaterally Gastrointestinal: Yes: Normal Bowel Sounds Extremities: Yes: WNL Neurological: Yes: Alert, Oriented Labs: CBC, BMP 08/11/17 10:22 08/11/17 10:22 INR, PTT INR 1.50 (0.82-1.09) H 08/10/17 12:54 Problem List - Problems (1) Rectal bleeding Assessment/Plan: no more bleeding Code(s): K62.5 - HEMORRHAGE OF ANUS AND RECTUM (2) CHF (congestive heart failure) Assessment/Plan: stable no sob Code(s): I50.9 - HEART FAILURE, UNSPECIFIED Qualifiers: Congestive heart failure type: combined Congestive heart failure chronicity : acute on chronic Qualified Code(s): I50.43 - Acute on chronic combined systolic (congestive) and diastolic (congestive) heart failure (3) Acute diverticulitis Assessment/Plan: on iv abx id on board Code(s): K57.92 - DVTRCLI OF INTEST, PART UNSP, W/O PERF OR ABSCESS W/O BLEED (4) Anemia Assessment/Plan: monitor s/p prbc transfusion Code(s): D64.9 - ANEMIA, UNSPECIFIED Qualifiers: Anemia type: unspecified type Qualified Code(s): D64.9 - Anemia, unspecified (5) CKD (chronic kidney disease) Assessment/Plan: monitor renal on board Code(s): N18.9 - CHRONIC KIDNEY DISEASE, UNSPECIFIED Qualifiers: Chronic kidney disease stage: stage 4 (severe) Qualified Code(s): N18.4 - Chronic kidney disease, stage 4 (severe) (6) CHF Congestive heart failure Code(s): I50.9 - HEART FAILURE, UNSPECIFIED
--- NOTE | 2017-08-11 21:30 | CON.CARD ---
Consult Consult Specialty:: Cardiology Referred by:: Dr. Escobar Reason for Consultation:: Cardiac evaluation - History of Present Illness Chief Complaint: GI bleed History of Present Illness: Patient is a 71 year old male with underlying historyu of atrial fibrillation on Eliquis, CAD s/p CABG, angina pectoris, sick sinus syndrome with PPM ( [employer]), COPD, hypercholesterolemia, CKD and CVA/TIA who presents with rectal bleed describes dark red blood. He also complains of abdominal cramps. He is tolerating PO intake. Denies chest pain, shortness of breath or palpitations. He denies paroxysmal nocturnal dyspnea or orthopnea. He denies fever or chills. He denies headache or lightheadedness. Denies nausea, vomiting at this time. He had seen Sofía Melendez MD of [facility] Cardiology in the past but now sees Dr. Maxi Mello of [facility] (Cardiology). Patient had recently signed out AMA from [place] [facility] when he presented with lower extremity swelling - History Source History Provided By: Patient, Medical Record Limitations to Obtaining History: No Limitations - Past Medical History Cardio/Vascular: Yes: CAD, CHF Pulmonary: Yes: COPD Gastrointestinal: Yes: Constipation, GI Bleed Renal/: Yes: Renal Failure, Renal Inusuff - Past Surgical History Past Surgical History: Yes: CABG, Permanent Pacemaker - Alcohol/Substance Use Hx Alcohol Use: No - Smoking History Smoking history: Former smoker Have you smoked in the past 12 months: No Home Medications - Allergies Allergies/Adverse Reactions: Allergies Allergy/AdvReac Type Severity Reaction Status Date / Time No Known Allergies Allergy Verified 08/10/17 12:02 - Home Medications Home Medications: Ambulatory Orders Albuterol 0.083% Nebulizer Kristyn [Ventolin 0.083%] 1 neb NEB QID PRN 04/02/16 Apixaban [Eliquis] 5 mg PO BID 04/02/16 Aspirin [ASA -] 81 mg PO DAILY 04/02/16 Atorvastatin Calcium 20 mg PO HS 04/02/16 Azelastine HCl [Astepro] 1 - 2 spr NS BID 04/02/16 Budesonide/Formeterol Fumarate [SYMBICORT 160/4.5mcg -] 1 inh PO DAILY 04/02/16 Cholecalciferol (Vitamin D3) [Vitamin D3 -] 3,000 unit PO DAILY 04/02/16 Ethambutol HCl [Myambutol -] 400 mg PO DAILY 04/02/16 Furosemide [Lasix -] 20 mg PO DAILY 04/02/16 Levalbuterol Tartrate [Xopenex Hfa] 15 gm IH DAILY PRN 04/02/16 Montelukast Na [Singulair -] 10 mg PO HS 04/02/16 Omeprazole [Prilosec] 40 mg PO BID 04/02/16 Tamsulosin HCl [Flomax] 0.4 mg PO HS 04/02/16 Tiotropium [place] [employer] [Spiriva] 1 inh PO DAILY 04/02/16 Trazodone HCl [Desyrel -] 100 mg PO HS 04/02/16 Zolpidem Tartrate [Ambien] 10 mg PO HS 04/02/16 Carvedilol 12.5 mg PO DAILY 08/10/17 Triamcinolone Acetonide [Nasacort] 1 inh BID 08/10/17 Valsartan 320 mg PO DAILY 08/10/17 Review of Systems - Review of Systems Constitutional: denies: Chills, Fever Cardiovascular: denies: Chest Pain, Palpitations, Shortness of Breath Respiratory: denies: Cough, Hemoptysis, Orthopnea, PND, SOB, SOB on Exertion Gastrointestinal: reports: Abdominal Pain, Diarrhea, Melena, Rectal Bleeding. denies: Constipation, Nausea, Vomiting Genitourinary: denies: Dysuria, Hematuria Musculoskeletal: denies: Joint Pain Neurological: denies: Dizziness, Headache, Seizure, Syncope Vital Signs: Vital Signs Temperature 98.0 F 08/11/17 18:00 Pulse Rate 74 08/11/17 18:00 Respiratory Rate 20 08/11/17 18:00 Blood Pressure 128/65 08/11/17 18:00 O2 Sat by Pulse Oximetry (%) 97 08/11/17 12:00 Eyes: Yes: PERRL HENT: Yes: Atraumatic Neck: Yes: Supple Respiratory: Yes: CTA Bilaterally Gastrointestinal: Yes: Normal Bowel Sounds, Soft, Rectal Bleeding. No: Tenderness Cardiovascular: Yes: Regular Rate and Rhythm JVD: No Carotid Bruit: No PMI: Non-Displaced Heart Sounds: Yes: S1, S2. No: Gallop Murmur: Yes: Systolic Murmur, Grade 1 Edema: No - Other Data Labs, Other Data: CBC, BMP 08/11/17 10:22 08/11/17 10:22 INR, PTT INR 1.50 (0.82-1.09) H 08/10/17 12:54 Ventricular paced rhythm underlying AF Imaging - Results Cat Scan: Report Reviewed (CT reveals acute sigmoid diverticulitis, fusiform TAA (distal portion of descending) at 5.5 cm and infrarenal AAA 4.1 cm) Problem List - Problems (1) CVD (cerebrovascular disease) Code(s): I67.9 - CEREBROVASCULAR DISEASE, UNSPECIFIED (2) Hypercholesterolemia Code(s): E78.00 - PURE HYPERCHOLESTEROLEMIA, UNSPECIFIED (3) Sick sinus syndrome Code(s): I49.5 - SICK SINUS SYNDROME (4) Presence of permanent cardiac pacemaker Code(s): Z95.0 - PRESENCE OF CARDIAC PACEMAKER (5) Hx of CABG Code(s): Z95.1 - PRESENCE OF AORTOCORONARY BYPASS GRAFT (6) Abdominal pain Code(s): R10.9 - UNSPECIFIED ABDOMINAL PAIN Qualifiers: Abdominal location: unspecified location Qualified Code(s): R10.9 - Unspecified abdominal pain (7) Acute diverticulitis Code(s): K57.92 - DVTRCLI OF INTEST, PART UNSP, W/O PERF OR ABSCESS W/O BLEED (8) Anemia Code(s): D64.9 - ANEMIA, UNSPECIFIED Qualifiers: Anemia type: unspecified type Qualified Code(s): D64.9 - Anemia, unspecified (9) CKD (chronic kidney disease) Code(s): N18.9 - CHRONIC KIDNEY DISEASE, UNSPECIFIED Qualifiers: Chronic kidney disease stage: stage 4 (severe) Qualified Code(s): N18.4 - Chronic kidney disease, stage 4 (severe) (10) Rectal bleeding Code(s): K62.5 - HEMORRHAGE OF ANUS AND RECTUM (11) CHF (congestive heart failure) Code(s): I50.9 - HEART FAILURE, UNSPECIFIED Qualifiers: Congestive heart failure type: combined Congestive heart failure chronicity : acute on chronic Qualified Code(s): I50.43 - Acute on chronic combined systolic (congestive) and diastolic (congestive) heart failure Assessment/Plan 1. Rectal bleed, etiology to be defined 2. CAD s/p CABG, angina pectoris 3. Persistent AF with underlying PPM for sick sinus syndrome 4. Acute on CKD with worsened creatinine 5. Hypercholesterolemia 6. CVA/TIA 7. COPD 8. TAA and AAA PLAN: 1. Further GI work up would be warranted especially with necessity and indication to be on anticoagulation for AF stroke risk 2. Renal function needs to be followed closely as he may soon need to be on HD. Renal input noted. 3. Continue Carvedilol as tolerated 4. Continue Atorvastatin 5. Notify his Form Grader Operator, Maxi Mello MD who will resume further cardiac care once he is discharged 6. Monitor CBC and transfuse PRBC as needed 7. TAA and AAA likely also needs surveillance probably not ready for intervention Further plans are to follow. Importance of above issues emphasized to patient. Currently he is off Eliquis, but will need to resume once cleared by GI Guarded Klever Marti MD
[2017-08-11 22:24] LABS: URINE LEUK ESTERASE Negative (NEGATIVE)
[2017-08-11 22:48] LABS: URINE CREATININE 50.8 mg/dL (20-370)
[2017-08-11] MEDS: CALCIUM CARBONATE SUSPENSION - 500 MG/5 ML ML PO SCH (23:01)
[2017-08-11] MEDS ORDERED: traZODone HCL 50 MG TABLET (FP) ONE (23:02)
[2017-08-11] MEDS: TAMSULOSIN HCL 0.4 MG CAP.ER.24H (FP) PO SCH (23:05)
[2017-08-11] MEDS: ATORVASTATIN CA 20 MG TABLET (FP) PO SCH (23:05)
[2017-08-11] MEDS: MONTELUKAST NA 10 MG TABLET PO SCH (23:05)
[2017-08-11] MEDS: traZODone HCL 100 MG TABLET (FP) PO SCH (23:06)
[2017-08-11] MEDS: METRONIDAZOLE 500 MG PREMIXED 500 MG/100 ML MG IVPB SCH (23:07)
[2017-08-11] MEDS: ZOLPIDEM TARTRATE 5 MG TABLET PO PRN (23:13)
[2017-08-12] MEDS: METRONIDAZOLE 500 MG PREMIXED 500 MG/100 ML MG IVPB SCH ×3 (02:50→18:12)
[2017-08-12] MEDS ORDERED: PT OWN MED DRAWER 7, Y5N ONE ×3 (04:04→21:13)
[2017-08-12 08:13] LABS: BASO % 0.6 % (0-2.0); EOS % 1.4 % (0-4.5); HEMATOCRIT 24.2 % (35.4-49); HEMOGLOBIN 7.8 GM/dL (11.7-16.9); LYMPH % 4.2 % (8-40); MCH 29.7 pg (25.7-33.7); MCHC 32.3 g/dl (32.0-35.9); MEAN CELL VOLUME 92.1 fl (80-96); MEAN PLT VOLUME 8.6 fl (7.5-11.1); MONO % 5.9 % (3.8-10.2); NEUT % 87.9 % (42.8-82.8); PLATELET COUNT 109 K/MM3 (134-434); RBC 2.63 M/mm3 (4.00-5.60); RDW 15.2 % (11.9-15.9); WHITE BLOOD COUNT 12.3 K/mm3 (4.0-10.0)
[2017-08-12 08:37] LABS: INR 1.32 (0.82-1.09); PROTHROMBIN TIME (PATIENT) 14.9 SEC (9.98-11.88)
[2017-08-12 08:40] LABS: ACTIVATED PTT 28.1 SECONDS (26.9-34.4)
[2017-08-12 08:49] LABS: CHLORIDE 105 mmol/L (98-107); POTASSIUM 4.3 mmol/L (3.5-5.1); SODIUM 136 mmol/L (136-145)
[2017-08-12 08:56] LABS: ALK PHOS 57 U/L (45-117); ANION GAP 13 (8-16); BILIRUBIN,TOTAL 0.3 mg/dL (0.2-1.0); CALCIUM 7.5 mg/dL (8.5-10.1); CO2 18 mmol/L (21-32); CREATININE 5.4 mg/dL (0.7-1.3); GLUCOSE,RANDOM 88 mg/dL (74-106); PHOSPHOROUS 6.1 mg/dL (2.5-4.9); SGPT/ALT 13 U/L (12-78); TOT PROT 4.4 g/dl (6.4-8.2)
[2017-08-12 09:07] LABS: SGOT/AST < 3 U/L (15-37)
[2017-08-12 09:11] LABS: BLOOD UREA NITROGEN 127 mg/dL (7-18)
[2017-08-12] MEDS: CARVEDILOL 12.5 MG TABLET (FP) PO SCH ×2 (09:51→21:18)
[2017-08-12] MEDS: PANTOPRAZOLE 40 MG TABLET (FP) PO SCH ×2 (09:51→21:18)
[2017-08-12] MEDS: LEVOFLOXACIN 250 MG IVPB 250 MG/50 ML MG IVPB SCH (09:54)
[2017-08-12] MEDS: FLUTICASONE PROP 0.05% 16 GM NASAL SPRAY NS SCH ×2 (11:00→21:19)
[2017-08-12] MEDS: CALCIUM CARBONATE SUSPENSION - 500 MG/5 ML ML PO SCH (11:00)
[2017-08-12] MEDS: BUDESONIDE/FORMETEROL FUMARATE 160/4.5 mcg INHALER IH SCH (11:01)
[2017-08-12] MEDS: TIOTROPIUM BROMIDE 18 MCG/INH (DEVICE W/ 5 CAPSULES) IH SCH (11:01)
--- NOTE | 2017-08-12 13:03 | CON.ID ---
Consult - History of Present Illness Chief Complaint: bloody BMs/abdominal pain History of Present Illness: This is 71 y.o. male with history of CAD s/p CABG, Afib, aortic valve replacement, COPD, CKD, CHF presenting with bloody BMs x 4 episodes which began 2 days ago. He states he was feeling pain in the lower abd with a severity of 7/ 10 at its worst. He had a normal colonoscopy about 5 years ago. This is the first time he has experienced this. Pt denies any recent nausea or vomiting, fever or chills. Pt does not have any recent BMs. He has no history of travel recently. Denies any other specific complaints. In the ER found to have leukocytosis and abd pain and worsening renal function. CT abdomen findings are consistent with sigmoid diverticulitis. - History Source History Provided By: Patient Limitations to Obtaining History: No Limitations - Past Medical History [employer]: No: Alzheimer's, CVA, Dementia, Migraine, Multiple Sclerosis, Peripheral Neuropathy, Parkinson's, Seizure, Syncope, TIA, Vertigo, Other Cardio/Vascular: Yes: AFIB, CAD, CHF Pulmonary: Yes: COPD Gastrointestinal: Yes: Constipation, GI Bleed Renal/: Yes: Renal Failure, Renal Inusuff Infectious Disease: No: AIDS, C-Diff, Herpes Zoster, HIV, MRSA, STD's, Tuberculosis, VREF, Other Psych: No: Addictions, Anxiety, Bipolar, Depression, Panic, Psychosis, Schizophrenia, Other Musculoskeletal: No: Bursitis, Chronic low back pain, Hemiparesis, Hemiplegia, Osteoarthritis, Paraplegia, Other Rheumatology: No: Fibromyalgia, Gout, Lupus, Rheumatoid Arthritis, Sarcoidosis, Vasculitis, Other ENT: No: Allergic Rhinitis, Sinusitis, Other Endocrine: No: [place]'s Disease, [place]'s Disease, Diabetes Insipidus, Diabetes Mellitus, Hyperparathyroidism, Hyperthyroidism, Hypothyroidism, Osteopenia, SIADH, Other Dermatology: No: Basal Cell, Cellulitis, Eczema, Melanoma, Psoriasis, Squamous Cell, Other - Past Surgical History Past Surgical History: Yes: CABG, Permanent Pacemaker Additional Surgical History: aortic valve replacement - Alcohol/Substance Use Hx Alcohol Use: No History of Substance Use: reports: None - Smoking History Smoking history: Former smoker Have you smoked in the past 12 months: No - Social History Usual Living Arrangement: Alone History of Recent Travel: No Home Medications - Allergies Allergies/Adverse Reactions: Allergies Allergy/AdvReac Type Severity Reaction Status Date / Time No Known Allergies Allergy Verified 08/10/17 12:02 - Home Medications Home Medications: Ambulatory Orders Albuterol 0.083% Nebulizer Kristyn [Ventolin 0.083%] 1 neb NEB QID PRN 04/02/16 Apixaban [Eliquis] 5 mg PO BID 04/02/16 Aspirin [ASA -] 81 mg PO DAILY 04/02/16 Atorvastatin Calcium 20 mg PO HS 04/02/16 Azelastine HCl [Astepro] 1 - 2 spr NS BID 04/02/16 Budesonide/Formeterol Fumarate [SYMBICORT 160/4.5mcg -] 1 inh PO DAILY 04/02/16 Cholecalciferol (Vitamin D3) [Vitamin D3 -] 3,000 unit PO DAILY 04/02/16 Ethambutol HCl [Myambutol -] 400 mg PO DAILY 04/02/16 Furosemide [Lasix -] 20 mg PO DAILY 04/02/16 Levalbuterol Tartrate [Xopenex Hfa] 15 gm IH DAILY PRN 04/02/16 Montelukast Na [Singulair -] 10 mg PO HS 04/02/16 Omeprazole [Prilosec] 40 mg PO BID 04/02/16 Tamsulosin HCl [Flomax] 0.4 mg PO HS 04/02/16 Tiotropium [place] [Spiriva] 1 inh PO DAILY 04/02/16 Trazodone HCl [Desyrel -] 100 mg PO HS 04/02/16 Zolpidem Tartrate [Ambien] 10 mg PO HS 04/02/16 Carvedilol 12.5 mg PO DAILY 08/10/17 Triamcinolone Acetonide [Nasacort] 1 inh BID 08/10/17 Valsartan 320 mg PO DAILY 08/10/17 Review of Systems - Review of Systems Constitutional: reports: No Symptoms Eyes: reports: No Symptoms HENT: reports: No Symptoms Neck: reports: No Symptoms Cardiovascular: reports: No Symptoms Respiratory: reports: No Symptoms Gastrointestinal: reports: Abdominal Pain (lower abd/ RLQ), Rectal Bleeding Genitourinary: reports: No Symptoms Musculoskeletal: reports: No Symptoms Integumentary: reports: No Symptoms Neurological: reports: No Symptoms Endocrine: reports: No Symptoms Hematology/Lymphatic: reports: No Symptoms Psychiatric: reports: No Symptoms Physical Exam Vital Signs: Vital Signs Temperature 98.6 F 08/12/17 08:57 Pulse Rate 69 08/12/17 08:57 Respiratory Rate 20 08/12/17 08:57 Blood Pressure 111/42 08/12/17 08:57 O2 Sat by Pulse Oximetry (%) 97 08/11/17 22:00 Constitutional: Yes: Well Nourished, No Distress HENT: Yes: WNL Neck: Yes: WNL Cardiovascular: Yes: Regular Rate and Rhythm Respiratory: Yes: CTA Bilaterally Gastrointestinal: Yes: Normal Bowel Sounds, Soft, Distention (mild), Other ( lower abdomen tyson RLQ) Renal/: Yes: WNL Musculoskeletal: Yes: WNL Extremities: Yes: WNL Integumentary: Yes: WNL Neurological: Yes: Alert, Oriented Psychiatric: Yes: Alert Labs: CBC, BMP 08/12/17 07:45 08/12/17 07:45 Imaging - Results Cat Scan: Report Reviewed Problem List - Problems (1) Acute diverticulitis Code(s): K57.92 - DVTRCLI OF INTEST, PART UNSP, W/O PERF OR ABSCESS W/O BLEED (2) CKD (chronic kidney disease) Code(s): N18.9 - CHRONIC KIDNEY DISEASE, UNSPECIFIED Qualifiers: Chronic kidney disease stage: stage 4 (severe) Qualified Code(s): N18.4 - Chronic kidney disease, stage 4 (severe) (3) Rectal bleeding Code(s): K62.5 - HEMORRHAGE OF ANUS AND RECTUM (4) CHF (congestive heart failure) Code(s): I50.9 - HEART FAILURE, UNSPECIFIED Qualifiers: Congestive heart failure type: combined Congestive heart failure chronicity : acute on chronic Qualified Code(s): I50.43 - Acute on chronic combined systolic (congestive) and diastolic (congestive) heart failure Assessment/Plan 71 y.o. male with hx of CAD s/p CABG, Afib on Eliquis, AV replacement, CKD, COPD , CHF presenting with bloody/dark stools and abdominal pain. Acute sigmoid diverticulitis Worsening CKD Leukocytosis - recommend continue Levaquin and Flagyl IV empirically - GI following - monitor wbc, vitals pt currently appears stable at this time will f/u, thank you
--- NOTE | 2017-08-12 13:14 | PN ---
Progress Note, Physician History of Present Illness: Denies further rectal bleed, chest pain or dyspnea. LLQ pain slowly improving. - Current Medication List Current Medications: Active Medications Albuterol Sulfate (Ventolin 0.083% Nebulizer Soln -) 1 amp NEB Q6H PRN PRN Reason: SHORT OF BREATH/WHEEZING Last Admin: 08/11/17 23:23 Dose: 1 amp Atorvastatin Calcium (Lipitor -) 20 mg PO HS [facility] Last Admin: 08/11/17 23:05 Dose: 20 mg Budesonide/Formoterol Fumarate (Symbicort 160/4.5mcg -) 1 puff IH DAILY [facility] Last Admin: 08/12/17 11:01 Dose: 1 puff Calcium Carbonate (Calcium Carb Oral Suspension -) 500 mg PO DAILY [facility] Last Admin: 08/12/17 11:00 Dose: 500 mg Carvedilol (Coreg -) 12.5 mg PO DAILY [facility] Last Admin: 08/12/17 09:51 Dose: 12.5 mg Fluticasone Propionate (Flonase -) 1 spray NS BID [facility] Last Admin: 08/12/17 11:00 Dose: 1 spray Metronidazole (Flagyl 500mg Premixed Ivpb -) 500 mg in 100 mls @ 100 mls/hr IVPB Q8H-IV [facility] Last Admin: 08/12/17 09:52 Dose: 100 mls/hr Levofloxacin (Levaquin 250 Mg Premixed Ivpb -) 250 mg in 50 mls @ 50 mls/hr IVPB DAILY [facility] Last Admin: 08/12/17 09:54 Dose: 50 mls/hr Montelukast Sodium (Singulair -) 10 mg PO [facility] Last Admin: 08/11/17 23:05 Dose: 10 mg Xopenex Hfa Inhaler (Non-Formulary Med) 1 each IH Q6H PRN PRN Reason: SHORT OF BREATH/WHEEZING Last Admin: 08/11/17 23:06 Dose: 1 each Astepro (Nasal) Non- (Formulary Med) 1 each NR BID [facility] Pantoprazole Sodium (Protonix -) 40 mg PO BID [facility] Last Admin: 08/12/17 09:51 Dose: 40 mg Tamsulosin HCl (Flomax -) 0.4 mg PO [facility] Last Admin: 08/11/17 23:05 Dose: 0.4 mg Tiotropium [place] (Spiriva -) 1 puff IH DAILY [facility] Last Admin: 08/12/17 11:01 Dose: 1 puff Trazodone HCl (Desyrel -) 100 mg PO HS [facility] Last Admin: 08/11/17 23:06 Dose: 100 mg Zolpidem Tartrate (Ambien -) 5 mg PO HS [facility] Last Admin: 08/11/17 23:13 Dose: 5 mg - Objective Vital Signs: Vital Signs Temperature 98.6 F 08/12/17 08:57 Pulse Rate 69 08/12/17 08:57 Respiratory Rate 20 08/12/17 08:57 Blood Pressure 111/42 08/12/17 08:57 O2 Sat by Pulse Oximetry (%) 97 08/11/17 22:00 Constitutional: Yes: No Distress, Calm Neck: Yes: Supple Cardiovascular: Yes: Regular Rate and Rhythm Respiratory: Yes: Regular, Diminished Gastrointestinal: Yes: Soft, Hypoactive Bowel Sounds, Rectal Bleeding Edema: Yes Edema: LLE: 1+, RLE: 1+ Labs: CBC, BMP 08/12/17 07:45 08/12/17 07:45 INR, PTT INR 1.32 (0.82-1.09) H 08/12/17 07:45 Problem List - Problems (1) Acute diverticulitis Code(s): K57.92 - DVTRCLI OF INTEST, PART UNSP, W/O PERF OR ABSCESS W/O BLEED (2) Anemia Code(s): D64.9 - ANEMIA, UNSPECIFIED Qualifiers: Anemia type: unspecified type Qualified Code(s): D64.9 - Anemia, unspecified (3) CKD (chronic kidney disease) Code(s): N18.9 - CHRONIC KIDNEY DISEASE, UNSPECIFIED Qualifiers: Chronic kidney disease stage: stage 4 (severe) Qualified Code(s): N18.4 - Chronic kidney disease, stage 4 (severe) (4) CVD (cerebrovascular disease) Code(s): I67.9 - CEREBROVASCULAR DISEASE, UNSPECIFIED (5) Hx of CABG Code(s): Z95.1 - PRESENCE OF AORTOCORONARY BYPASS GRAFT (6) Hypercholesterolemia Code(s): E78.00 - PURE HYPERCHOLESTEROLEMIA, UNSPECIFIED (7) Presence of permanent cardiac pacemaker Code(s): Z95.0 - PRESENCE OF CARDIAC PACEMAKER (8) Sick sinus syndrome Code(s): I49.5 - SICK SINUS SYNDROME (9) CHF Congestive heart failure Code(s): I50.9 - HEART FAILURE, UNSPECIFIED (10) Abdominal aortic aneurysm (AAA) Code(s): I71.4 - ABDOMINAL AORTIC ANEURYSM, WITHOUT RUPTURE Qualifiers: Presence of rupture: without rupture Qualified Code(s): I71.4 - Abdominal aortic aneurysm, without rupture Assessment/Plan 1. Acute sigmoid diverticulitis with rectal bleed and leukocytosis 2. CAD s/p CABG, angina pectoris 3. Persistent AF with underlying [employer] PPM for sick sinus syndrome off NOAC 4. Acute on CKD with worsening creatinine 5. Hypercholesterolemia 6. CVA/TIA 7. COPD 8. TAA and 5.5 cm AAA PLAN: 1. Ideally resume Eliquis once hemostasis achieved given elevated risk score 2. Renal function needs to be followed closely as he may soon need to be on HD. Renal input noted. F/u renal U/S 3. Increase Carvedilol 12.5 bid 4. Continue Atorvastatin 20 qhs 5. Notify his Hydro Technician, Maxi Mello MD who will resume further cardiac care once he is discharged 6. Monitor CBC and transfuse PRBC as needed 7. TAA and AAA also needs surveillance as outpatient 8. Empiric abx course 9. Compression therapy with GABE wraps Further plans are to follow. Importance of above issues emphasized to patient. Currently he is off Eliquis, but will need to resume once cleared by GI
[2017-08-12] MEDS ORDERED: FUROSEMIDE 40 MG/4 ML INJECTABLE VIAL IVPUSH ONE (13:52)
--- NOTE | 2017-08-12 13:52 | PN ---
Progress Note, Physician History of Present Illness: Pt seen and examined at bedside. He is awake and appears comfortable. He says he has not had much more bleeding. - Current Medication List Current Medications: Active Medications Albuterol Sulfate (Ventolin 0.083% Nebulizer Soln -) 1 amp NEB Q6H PRN PRN Reason: SHORT OF BREATH/WHEEZING Last Admin: 08/11/17 23:23 Dose: 1 amp Atorvastatin Calcium (Lipitor -) 20 mg PO HS [facility] Last Admin: 08/11/17 23:05 Dose: 20 mg Budesonide/Formoterol Fumarate (Symbicort 160/4.5mcg -) 1 puff IH DAILY [facility] Last Admin: 08/12/17 11:01 Dose: 1 puff Calcium Carbonate (Calcium Carb Oral Suspension -) 500 mg PO DAILY [facility] Last Admin: 08/12/17 11:00 Dose: 500 mg Carvedilol (Coreg -) 12.5 mg PO BID [facility] Fluticasone Propionate (Flonase -) 1 spray NS BID [facility] Last Admin: 08/12/17 11:00 Dose: 1 spray Metronidazole (Flagyl 500mg Premixed Ivpb -) 500 mg in 100 mls @ 100 mls/hr IVPB Q8H-IV [facility] Last Admin: 08/12/17 09:52 Dose: 100 mls/hr Levofloxacin (Levaquin 250 Mg Premixed Ivpb -) 250 mg in 50 mls @ 50 mls/hr IVPB DAILY [facility] Last Admin: 08/12/17 09:54 Dose: 50 mls/hr Montelukast Sodium (Singulair -) 10 mg PO HS [facility] Last Admin: 08/11/17 23:05 Dose: 10 mg Xopenex Hfa Inhaler (Non-Formulary Med) 1 each IH Q6H PRN PRN Reason: SHORT OF BREATH/WHEEZING Last Admin: 08/11/17 23:06 Dose: 1 each Astepro (Nasal) Non- (Formulary Med) 1 each NR BID [facility] Pantoprazole Sodium (Protonix -) 40 mg PO BID [facility] Last Admin: 08/12/17 09:51 Dose: 40 mg Tamsulosin HCl (Flomax -) 0.4 mg PO HS [facility] Last Admin: 08/11/17 23:05 Dose: 0.4 mg Tiotropium [place] (Spiriva -) 1 puff IH DAILY [facility] Last Admin: 08/12/17 11:01 Dose: 1 puff Trazodone HCl (Desyrel -) 100 mg PO HS [facility] Last Admin: 08/11/17 23:06 Dose: 100 mg Zolpidem Tartrate (Ambien -) 5 mg PO HS PRN Last Admin: 08/11/17 23:13 Dose: 5 mg - Objective Vital Signs: Vital Signs Temperature 98.6 F 08/12/17 08:57 Pulse Rate 69 08/12/17 08:57 Respiratory Rate 20 08/12/17 08:57 Blood Pressure 111/42 08/12/17 08:57 O2 Sat by Pulse Oximetry (%) 97 08/11/17 22:00 Constitutional: Yes: Anxious Eyes: Yes: Conjunctiva Clear HENT: Yes: Atraumatic Neck: Yes: Supple Cardiovascular: Yes: S1, S2 Respiratory: Yes: CTA Bilaterally Gastrointestinal: Yes: Soft, Abdomen, Obese Genitourinary: Yes: WNL Musculoskeletal: Yes: WNL Edema: Yes Edema: LLE: 1+, RLE: 1+ Neurological: Yes: Oriented Psychiatric: Yes: Oriented, Agitated Labs: CBC, BMP 08/12/17 07:45 08/12/17 07:45 INR, PTT INR 1.32 (0.82-1.09) H 08/12/17 07:45 Problem List - Problems (1) CKD (chronic kidney disease) Code(s): N18.9 - CHRONIC KIDNEY DISEASE, UNSPECIFIED Qualifiers: Chronic kidney disease stage: stage 4 (severe) Qualified Code(s): N18.4 - Chronic kidney disease, stage 4 (severe) (2) Anemia Code(s): D64.9 - ANEMIA, UNSPECIFIED Qualifiers: Anemia type: unspecified type Qualified Code(s): D64.9 - Anemia, unspecified (3) Abdominal pain Code(s): R10.9 - UNSPECIFIED ABDOMINAL PAIN Qualifiers: Abdominal location: unspecified location Qualified Code(s): R10.9 - Unspecified abdominal pain (4) Rectal bleeding Code(s): K62.5 - HEMORRHAGE OF ANUS AND RECTUM (5) Acute exacerbation of COPD with asthma Code(s): J44.1 - CHRONIC OBSTRUCTIVE PULMONARY DISEASE W (ACUTE) EXACERBATION; J45.901 - UNSPECIFIED ASTHMA WITH (ACUTE) EXACERBATION (6) CHF (congestive heart failure) Code(s): I50.9 - HEART FAILURE, UNSPECIFIED Qualifiers: Congestive heart failure type: combined Congestive heart failure chronicity : acute on chronic Qualified Code(s): I50.43 - Acute on chronic combined systolic (congestive) and diastolic (congestive) heart failure Assessment/Plan Current Medications Generic Name Dose Route Start Last Admin Trade Name Freq PRN Reason Stop Dose Admin Albuterol Sulfate 1 amp 08/10/17 23:12 08/11/17 23:23 Ventolin 0.083% Nebulizer Soln - NEB 1 amp Q6H PRN Administration SHORT OF BREATH/WHEEZING Atorvastatin Calcium 20 mg 08/10/17 20:15 08/11/17 23:05 Lipitor - PO 20 mg HS [facility] Administration Budesonide/Formoterol Fumarate 1 puff 08/11/17 10:00 08/12/17 11:01 Symbicort 160/4.5mcg - IH 1 puff DAILY [facility] Administration Calcium Carbonate 500 mg 08/11/17 16:30 08/12/17 11:00 Calcium Carb Oral Suspension - PO 500 mg DAILY [facility] Administration Carvedilol 12.5 mg 08/12/17 22:00 Coreg - PO BID [facility] Fluticasone Propionate 1 spray 08/10/17 22:00 08/12/17 11:00 Flonase - NS 1 spray BID [facility] Administration Metronidazole 500 mg in 100 mls @ 100 mls/hr 08/11/17 20:30 08/12/17 09:52 Flagyl 500mg Premixed Ivpb - IVPB 100 mls/hr Q8H-IV [facility] Administration Levofloxacin 250 mg in 50 mls @ 50 mls/hr 08/12/17 10:00 08/12/17 09:54 Levaquin 250 Mg Premixed Ivpb - IVPB 50 mls/hr DAILY [facility] Administration Montelukast Sodium 10 mg 08/10/17 20:15 08/11/17 23:05 Singulair - PO 10 mg HS [facility] Administration Xopenex Hfa Inhaler 1 each 08/10/17 23:14 08/11/17 23:06 Non-Formulary Med IH 1 each Q6H PRN Administration SHORT OF BREATH/WHEEZING Astepro (Nasal) Non- 1 each 08/11/17 10:00 Formulary Med NR BID [facility] Pantoprazole Sodium 40 mg 08/10/17 23:15 08/12/17 09:51 Protonix - PO 40 mg BID [facility] Administration Tamsulosin HCl 0.4 mg 08/10/17 20:15 08/11/17 23:05 Flomax - PO 0.4 mg HS [facility]Y Administration Tiotropium [place] 1 puff 08/11/17 10:00 08/12/17 11:01 Spiriva - IH 1 puff DAILY [facility] Administration Trazodone HCl 100 mg 08/10/17 22:00 08/11/17 23:06 Desyrel - PO 100 mg HS [facility] Administration Zolpidem Tartrate 5 mg 08/10/17 22:00 08/11/17 23:13 Ambien - PO 5 mg HS PRN Administration Impression 1. CKD 2. ALAN 3. anemia 4. GI bleed 5. BPH 6. a-fib 7. aortic aneurysm 8. COPD 9. insomnia Plan - renal function continues to worsen - follow up renal ultrasound - will give a dose of lasix - check cxr in am - GI follow up for workup - had a long discussed today about the plan with pt and his daughter - discussed with Dr Orellana as well - may need HD therapy if he does not improve - agree with domo phelps - will follow pt closely Dr Ortega
--- NOTE | 2017-08-12 15:26 | PN ---
Progress Note (short form) - Note Progress Note: Pt seen and examined Pt comfortable sitting all the consult notes reviewed. No further BM UOP as per him was OK O/E General: NAD Neck: no LAD lungs: CTA B/l abd: obese, no tenderness LE: mild edema Last Vital Signs Temp Pulse Resp BP Pulse Ox 98 F 70 18 95/54 97 08/12/17 14:31 08/12/17 14:31 08/12/17 14:31 08/12/17 14:31 08/11/17 22:00 CBC, BMP 08/12/17 07:45 08/12/17 07:45 Current Medications Generic Name Dose Route Start Last Admin Trade Name Freq PRN Reason Stop Dose Admin Albuterol Sulfate 1 amp 08/10/17 23:12 08/11/17 23:23 Ventolin 0.083% Nebulizer Soln - NEB 1 amp Q6H PRN Administration SHORT OF BREATH/WHEEZING Atorvastatin Calcium 20 mg 08/10/17 20:15 08/11/17 23:05 Lipitor - PO 20 mg HS [facility] Administration Budesonide/Formoterol Fumarate 1 puff 08/11/17 10:00 08/12/17 11:01 Symbicort 160/4.5mcg - IH 1 puff DAILY [facility] Administration Calcium Carbonate 500 mg 08/11/17 16:30 08/12/17 11:00 Calcium Carb Oral Suspension - PO 500 mg DAILY [facility] Administration Carvedilol 12.5 mg 08/12/17 22:00 Coreg - PO BID [facility] Fluticasone Propionate 1 spray 08/10/17 22:00 08/12/17 11:00 Flonase - NS 1 spray BID [facility] Administration Metronidazole 500 mg in 100 mls @ 100 mls/hr 08/11/17 20:30 08/12/17 09:52 Flagyl 500mg Premixed Ivpb - IVPB 100 mls/hr Q8H-IV [facility] Administration Levofloxacin 250 mg in 50 mls @ 50 mls/hr 08/12/17 10:00 08/12/17 09:54 Levaquin 250 Mg Premixed Ivpb - IVPB 50 mls/hr DAILY [facility] Administration Montelukast Sodium 10 mg 08/10/17 20:15 08/11/17 23:05 Singulair - PO 10 mg HS [facility] Administration Xopenex Hfa Inhaler 1 each 08/10/17 23:14 08/11/17 23:06 Non-Formulary Med IH 1 each Q6H PRN Administration SHORT OF BREATH/WHEEZING Astepro (Nasal) Non- 1 each 08/11/17 10:00 Formulary Med NR BID [facility] Pantoprazole Sodium 40 mg 08/10/17 23:15 08/12/17 09:51 Protonix - PO 40 mg BID [facility] Administration Tamsulosin HCl 0.4 mg 08/10/17 20:15 08/11/17 23:05 Flomax - PO 0.4 mg HS [facility] Administration Tiotropium [place] 1 puff 08/11/17 10:00 08/12/17 11:01 Spiriva - IH 1 puff DAILY [facility] Administration Trazodone HCl 100 mg 08/10/17 22:00 08/11/17 23:06 Desyrel - PO 100 mg HS [facility] Administration Zolpidem Tartrate 5 mg 08/10/17 22:00 08/11/17 23:13 Ambien - PO 5 mg HS PRN Administration anemia in the setting of GI bleed/afib on Eliquis/Acute diverticulitis/CKD Hgb 7.8 today. repeat CBC in the pm, to assess transfusion thrombocytopenia to 109K,likely in the setting of the acute illness and meds might be contributing too. will closely monitor counts abx per GI/ID AAA , as per cards/Vascular. d/w Daughter. pt and RN Problem List - Problems (1) Abdominal pain Code(s): R10.9 - UNSPECIFIED ABDOMINAL PAIN Qualifiers: Abdominal location: unspecified location Qualified Code(s): R10.9 - Unspecified abdominal pain (2) Anemia Code(s): D64.9 - ANEMIA, UNSPECIFIED Qualifiers: Anemia type: unspecified type Qualified Code(s): D64.9 - Anemia, unspecified (3) Rectal bleeding Code(s): K62.5 - HEMORRHAGE OF ANUS AND RECTUM (4) Acute diverticulitis Code(s): K57.92 - DVTRCLI OF INTEST, PART UNSP, W/O PERF OR ABSCESS W/O BLEED (5) CKD (chronic kidney disease) Code(s): N18.9 - CHRONIC KIDNEY DISEASE, UNSPECIFIED Qualifiers: Chronic kidney disease stage: stage 4 (severe) Qualified Code(s): N18.4 - Chronic kidney disease, stage 4 (severe)
[2017-08-12 17:01] LABS: BASO % 0.1 % (0-2.0); EOS % 1.3 % (0-4.5); HEMATOCRIT 23.2 % (35.4-49); HEMOGLOBIN 7.8 GM/dL (11.7-16.9); LYMPH % 3.4 % (8-40); MCH 30.9 pg (25.7-33.7); MCHC 33.7 g/dl (32.0-35.9); MEAN CELL VOLUME 91.8 fl (80-96); MEAN PLT VOLUME 8.9 fl (7.5-11.1); MONO % 6.2 % (3.8-10.2); PLATELET COUNT 127 K/MM3 (134-434); RBC 2.53 M/mm3 (4.00-5.60); RDW 15.4 % (11.9-15.9); WHITE BLOOD COUNT 10.4 K/mm3 (4.0-10.0)
[2017-08-12] MEDS ORDERED: FUROSEMIDE 40 MG/4 ML INJECTABLE VIAL ONE (18:08)
--- NOTE | 2017-08-12 18:58 | PN ---
Progress Note, Physician History of Present Illness: no complaints - Current Medication List Current Medications: Active Medications Albuterol Sulfate (Ventolin 0.083% Nebulizer Soln -) 1 amp NEB Q6H PRN PRN Reason: SHORT OF BREATH/WHEEZING Last Admin: 08/11/17 23:23 Dose: 1 amp Atorvastatin Calcium (Lipitor -) 20 mg PO HS [facility] Last Admin: 08/11/17 23:05 Dose: 20 mg Budesonide/Formoterol Fumarate (Symbicort 160/4.5mcg -) 1 puff IH DAILY [facility] Last Admin: 08/12/17 11:01 Dose: 1 puff Calcium Carbonate (Calcium Carb Oral Suspension -) 500 mg PO DAILY [facility] Last Admin: 08/12/17 11:00 Dose: 500 mg Carvedilol (Coreg -) 12.5 mg PO BID [facility] Fluticasone Propionate (Flonase -) 1 spray NS BID [facility] Last Admin: 08/12/17 11:00 Dose: 1 spray Metronidazole (Flagyl 500mg Premixed Ivpb -) 500 mg in 100 mls @ 100 mls/hr IVPB Q8H-IV [facility] Last Admin: 08/12/17 18:12 Dose: 100 mls/hr Levofloxacin (Levaquin 250 Mg Premixed Ivpb -) 250 mg in 50 mls @ 50 mls/hr IVPB DAILY [facility] Last Admin: 08/12/17 09:54 Dose: 50 mls/hr Montelukast Sodium (Singulair -) 10 mg PO HS [facility] Last Admin: 08/11/17 23:05 Dose: 10 mg Xopenex Hfa Inhaler (Non-Formulary Med) 1 each IH Q6H PRN PRN Reason: SHORT OF BREATH/WHEEZING Last Admin: 08/11/17 23:06 Dose: 1 each Astepro (Nasal) Non- (Formulary Med) 1 each NR BID [facility] Pantoprazole Sodium (Protonix -) 40 mg PO BID [facility] Last Admin: 08/12/17 09:51 Dose: 40 mg Tamsulosin HCl (Flomax -) 0.4 mg PO HS [facility] Last Admin: 08/11/17 23:05 Dose: 0.4 mg Tiotropium [place] (Spiriva -) 1 puff IH DAILY [facility] Last Admin: 08/12/17 11:01 Dose: 1 puff Trazodone HCl (Desyrel -) 100 mg PO HS [facility] Last Admin: 08/11/17 23:06 Dose: 100 mg Zolpidem Tartrate (Ambien -) 5 mg PO HS PRN Last Admin: 08/11/17 23:13 Dose: 5 mg - Objective Vital Signs: Vital Signs Temperature 98 F 08/12/17 14:31 Pulse Rate 70 08/12/17 14:31 Respiratory Rate 18 08/12/17 14:31 Blood Pressure 95/54 08/12/17 14:31 O2 Sat by Pulse Oximetry (%) 96 08/12/17 14:00 Constitutional: Yes: No Distress HENT: Yes: Atraumatic Neck: Yes: Supple Cardiovascular: Yes: Regular Rate and Rhythm Respiratory: Yes: CTA Bilaterally Gastrointestinal: Yes: Normal Bowel Sounds Extremities: Yes: WNL Neurological: Yes: Alert, Oriented Labs: CBC, BMP 08/12/17 16:35 08/12/17 07:45 INR, PTT INR 1.32 (0.82-1.09) H 08/12/17 07:45 Problem List - Problems (1) Rectal bleeding Assessment/Plan: no more bleeding Code(s): K62.5 - HEMORRHAGE OF ANUS AND RECTUM (2) CHF (congestive heart failure) Assessment/Plan: stable no sob Code(s): I50.9 - HEART FAILURE, UNSPECIFIED Qualifiers: Congestive heart failure type: combined Congestive heart failure chronicity : acute on chronic Qualified Code(s): I50.43 - Acute on chronic combined systolic (congestive) and diastolic (congestive) heart failure (3) Acute diverticulitis Assessment/Plan: on iv abx id on board Code(s): K57.92 - DVTRCLI OF INTEST, PART UNSP, W/O PERF OR ABSCESS W/O BLEED (4) Anemia Assessment/Plan: monitor s/p prbc transfusion Code(s): D64.9 - ANEMIA, UNSPECIFIED Qualifiers: Anemia type: unspecified type Qualified Code(s): D64.9 - Anemia, unspecified (5) CKD (chronic kidney disease) Assessment/Plan: monitor renal on board Code(s): N18.9 - CHRONIC KIDNEY DISEASE, UNSPECIFIED Qualifiers: Chronic kidney disease stage: stage 4 (severe) Qualified Code(s): N18.4 - Chronic kidney disease, stage 4 (severe) (6) CHF Congestive heart failure Code(s): I50.9 - HEART FAILURE, UNSPECIFIED
[2017-08-12] MEDS ORDERED: traZODone HCL 50 MG TABLET (FP) ONE (21:12)
[2017-08-12] MEDS: ATORVASTATIN CA 20 MG TABLET (FP) PO SCH (21:17)
[2017-08-12] MEDS: MONTELUKAST NA 10 MG TABLET PO SCH (21:18)
[2017-08-12] MEDS: TAMSULOSIN HCL 0.4 MG CAP.ER.24H (FP) PO SCH (21:18)
[2017-08-12] MEDS: traZODone HCL 100 MG TABLET (FP) PO SCH (21:19)
[2017-08-12] MEDS: ZOLPIDEM TARTRATE 5 MG TABLET PO PRN (21:25)
[2017-08-13] MEDS: METRONIDAZOLE 500 MG PREMIXED 500 MG/100 ML MG IVPB SCH ×3 (01:46→17:19)
[2017-08-13 06:08] LABS: SERUM IRON SATURATION 7 % (15-55); TOTAL IRON BINDING CAPACITY 220 ug/dL (250-450); UIBC 205 ug/dL (111-343)
[2017-08-13 07:50] LABS: BASO % 0.3 % (0-2.0); EOS % 2.2 % (0-4.5); HEMATOCRIT 22.7 % (35.4-49); HEMOGLOBIN 7.5 GM/dL (11.7-16.9); LYMPH % 6.5 % (8-40); MCH 30.3 pg (25.7-33.7); MCHC 33.1 g/dl (32.0-35.9); MEAN CELL VOLUME 91.4 fl (80-96); MEAN PLT VOLUME 8.4 fl (7.5-11.1); MONO % 7.2 % (3.8-10.2); NEUT % 83.8 % (42.8-82.8); PLATELET COUNT 123 K/MM3 (134-434); RBC 2.48 M/mm3 (4.00-5.60); RDW 14.7 % (11.9-15.9); WHITE BLOOD COUNT 10.6 K/mm3 (4.0-10.0)
[2017-08-13] MEDS: CARVEDILOL 12.5 MG TABLET (FP) PO SCH ×2 (09:14→21:20)
[2017-08-13] MEDS: PANTOPRAZOLE 40 MG TABLET (FP) PO SCH ×2 (09:14→21:20)
[2017-08-13 10:03] LABS: BASO % 0.5 % (0-2.0); EOS % 2.1 % (0-4.5); HEMATOCRIT 23.9 % (35.4-49); HEMOGLOBIN 7.9 GM/dL (11.7-16.9); LYMPH % 4.2 % (8-40); MCH 30.4 pg (25.7-33.7); MCHC 33.2 g/dl (32.0-35.9); MEAN CELL VOLUME 91.6 fl (80-96); NEUT % 87.2 % (42.8-82.8); PLATELET COUNT 136 K/MM3 (134-434); RBC 2.61 M/mm3 (4.00-5.60); RDW 14.7 % (11.9-15.9); WHITE BLOOD COUNT 9.7 K/mm3 (4.0-10.0)
[2017-08-13] MEDS: LEVOFLOXACIN 250 MG IVPB 250 MG/50 ML MG IVPB SCH (10:31)
[2017-08-13] MEDS ORDERED: PT OWN MED DRAWER 7, Y5N ONE ×3 (10:34→20:54)
[2017-08-13] MEDS: CALCIUM CARBONATE SUSPENSION - 500 MG/5 ML ML PO SCH (10:35)
[2017-08-13] MEDS: FLUTICASONE PROP 0.05% 16 GM NASAL SPRAY NS SCH ×2 (10:35→21:23)
[2017-08-13] MEDS: TIOTROPIUM BROMIDE 18 MCG/INH (DEVICE W/ 5 CAPSULES) IH SCH (10:36)
[2017-08-13] MEDS: BUDESONIDE/FORMETEROL FUMARATE 160/4.5 mcg INHALER IH SCH (10:36)
[2017-08-13 11:02] LABS: ALBUMIN 2.1 g/dl (3.4-5.0); ANION GAP 12 (8-16); BILIRUBIN,TOTAL 0.2 mg/dL (0.2-1.0); CALCIUM 7.5 mg/dL (8.5-10.1); CHLORIDE 107 mmol/L (98-107); CO2 19 mmol/L (21-32); GLUCOSE,RANDOM 142 mg/dL (74-106); POTASSIUM 3.9 mmol/L (3.5-5.1); SGOT/AST 5 U/L (15-37); SGPT/ALT 14 U/L (12-78); SODIUM 138 mmol/L (136-145); TOT PROT 4.6 g/dl (6.4-8.2)
[2017-08-13 11:04] LABS: ALK PHOS 60 U/L (45-117); CREATININE 5.1 mg/dL (0.7-1.3)
[2017-08-13] MEDS: ALBUTEROL SO4 0.083% IH SOL 2.5 MG/3 ML VIAL.NEB. NEB PRN (11:14)
--- NOTE | 2017-08-13 11:23 | PN ---
Progress Note, Physician Chief Complaint: Not in distress History of Present Illness: Patient was seen and examined. Awake and alert. Chart was reviewed Denies chest pain, SOB or palpitation PRBC transfusion planned - Current Medication List Current Medications: Active Medications Albuterol Sulfate (Ventolin 0.083% Nebulizer Soln -) 1 amp NEB Q6H PRN PRN Reason: SHORT OF BREATH/WHEEZING Last Admin: 08/13/17 11:14 Dose: 1 amp Atorvastatin Calcium (Lipitor -) 20 mg PO HS [facility] Last Admin: 08/12/17 21:17 Dose: 20 mg Budesonide/Formoterol Fumarate (Symbicort 160/4.5mcg -) 1 puff IH DAILY [facility] Last Admin: 08/13/17 10:36 Dose: 1 puff Calcium Carbonate (Calcium Carb Oral Suspension -) 500 mg PO DAILY [facility] Last Admin: 08/13/17 10:35 Dose: 500 mg Carvedilol (Coreg -) 12.5 mg PO BID [facility] Last Admin: 08/13/17 09:14 Dose: 12.5 mg Fluticasone Propionate (Flonase -) 1 spray NS BID [facility] Last Admin: 08/13/17 10:35 Dose: 1 spray Metronidazole (Flagyl 500mg Premixed Ivpb -) 500 mg in 100 mls @ 100 mls/hr IVPB Q8H-IV [facility] Last Admin: 08/13/17 09:16 Dose: 100 mls/hr Levofloxacin (Levaquin 250 Mg Premixed Ivpb -) 250 mg in 50 mls @ 50 mls/hr IVPB DAILY [facility] Last Admin: 08/13/17 10:31 Dose: 50 mls/hr Montelukast Sodium (Singulair -) 10 mg PO [facility] Last Admin: 08/12/17 21:18 Dose: 10 mg Xopenex Hfa Inhaler (Non-Formulary Med) 1 each IH Q6H PRN PRN Reason: SHORT OF BREATH/WHEEZING Last Admin: 08/11/17 23:06 Dose: 1 each Astepro (Nasal) Non- (Formulary Med) 1 each NR BID [facility] Pantoprazole Sodium (Protonix -) 40 mg PO BID [facility] Last Admin: 08/13/17 09:14 Dose: 40 mg Tamsulosin HCl (Flomax -) 0.4 mg PO [facility] Last Admin: 08/12/17 21:18 Dose: 0.4 mg Tiotropium [place] (Spiriva -) 1 puff IH DAILY [facility] Last Admin: 08/13/17 10:36 Dose: 1 puff Trazodone HCl (Desyrel -) 100 mg PO HS [facility] Last Admin: 08/12/17 21:19 Dose: 100 mg Zolpidem Tartrate (Ambien -) 5 mg PO HS PRN Last Admin: 08/12/17 21:25 Dose: 5 mg - Objective Vital Signs: Vital Signs Temperature 98.0 F 08/13/17 09:09 Pulse Rate 74 08/13/17 09:54 Respiratory Rate 18 08/13/17 09:09 Blood Pressure 124/67 08/13/17 09:09 O2 Sat by Pulse Oximetry (%) 96 08/13/17 09:54 Eyes: Yes: PERRL HENT: Yes: Atraumatic Neck: Yes: Supple Cardiovascular: Yes: Regular Rate and Rhythm, Murmur (Soft SM), S1, S2 Respiratory: Yes: CTA Bilaterally Gastrointestinal: Yes: Soft, Tenderness Extremities: Yes: Other (Wrapped) Edema: Yes Labs: CBC, BMP 08/13/17 09:40 INR, PTT INR 1.32 (0.82-1.09) H 08/12/17 07:45 Problem List - Problems (1) CVD (cerebrovascular disease) Code(s): I67.9 - CEREBROVASCULAR DISEASE, UNSPECIFIED (2) Hypercholesterolemia Code(s): E78.00 - PURE HYPERCHOLESTEROLEMIA, UNSPECIFIED (3) Sick sinus syndrome Code(s): I49.5 - SICK SINUS SYNDROME (4) Presence of permanent cardiac pacemaker Code(s): Z95.0 - PRESENCE OF CARDIAC PACEMAKER (5) Hx of CABG Code(s): Z95.1 - PRESENCE OF AORTOCORONARY BYPASS GRAFT (6) Abdominal pain Code(s): R10.9 - UNSPECIFIED ABDOMINAL PAIN Qualifiers: Abdominal location: unspecified location Qualified Code(s): R10.9 - Unspecified abdominal pain (7) Acute diverticulitis Code(s): K57.92 - DVTRCLI OF INTEST, PART UNSP, W/O PERF OR ABSCESS W/O BLEED (8) Anemia Code(s): D64.9 - ANEMIA, UNSPECIFIED Qualifiers: Anemia type: unspecified type Qualified Code(s): D64.9 - Anemia, unspecified (9) CKD (chronic kidney disease) Code(s): N18.9 - CHRONIC KIDNEY DISEASE, UNSPECIFIED Qualifiers: Chronic kidney disease stage: stage 4 (severe) Qualified Code(s): N18.4 - Chronic kidney disease, stage 4 (severe) (10) Rectal bleeding Code(s): K62.5 - HEMORRHAGE OF ANUS AND RECTUM (11) CHF (congestive heart failure) Code(s): I50.9 - HEART FAILURE, UNSPECIFIED Qualifiers: Congestive heart failure type: combined Congestive heart failure chronicity : acute on chronic Qualified Code(s): I50.43 - Acute on chronic combined systolic (congestive) and diastolic (congestive) heart failure Assessment/Plan 1. Rectal bleed, underlying diverticulitis 2. CAD s/p CABG, angina pectoris 3. Persistent AF with underlying PPM for sick sinus syndrome 4. Acute on CKD with worsened creatinine 5. Hypercholesterolemia 6. CVA/TIA 7. COPD 8. TAA and AAA PLAN: 1. Further GI work up would be warranted especially with necessity and indication to be on anticoagulation for AF stroke risk 2. Renal function needs to be followed closely 3. Continue Carvedilol as tolerated 4. Continue Atorvastatin 5. Monitor CBC and transfuse PRBC as needed 6. TAA and AAA likely also needs surveillance probably not ready for intervention Further plans are to follow. Importance of above issues emphasized to patient. Currently he is off Eliquis, but will need to resume once cleared by GI Follow up with Dr. Maxi Mello, cardiology at [facility] upon discharge Guarded Klever Marti MD
[2017-08-13 12:29] LABS: BLOOD UREA NITROGEN 117 mg/dL (7-18)
[2017-08-13] MEDS ORDERED: FUROSEMIDE 40 MG/4 ML INJECTABLE VIAL IVPUSH ONE (13:59)
--- NOTE | 2017-08-13 13:59 | PN ---
Progress Note (short form) - Note Progress Note: Pt seen and examined Pt says he did not have a BM , passing gas and the all the consult notes reviewed. O/E General: NAD Neck: no LAD lungs: CTA B/l abd: distended, BS+, no tenderness LE: mild edema Last Vital Signs Temp Pulse Resp BP Pulse Ox 97.7 F 83 20 117/73 96 08/13/17 11:15 08/13/17 11:15 08/13/17 11:15 08/13/17 11:15 08/13/17 09:54 CBC, BMP 08/13/17 09:40 08/13/17 09:40 Current Medications Generic Name Dose Route Start Last Admin Trade Name Freq PRN Reason Stop Dose Admin Albuterol Sulfate 1 amp 08/10/17 23:12 08/13/17 11:14 Ventolin 0.083% Nebulizer Soln - NEB 1 amp Q6H PRN Administration SHORT OF BREATH/WHEEZING Atorvastatin Calcium 20 mg 08/10/17 20:15 08/12/17 21:17 Lipitor - PO 20 mg HS [facility] Administration Budesonide/Formoterol Fumarate 1 puff 08/11/17 10:00 08/13/17 10:36 Symbicort 160/4.5mcg - IH 1 puff DAILY [facility] Administration Calcium Carbonate 500 mg 08/11/17 16:30 08/13/17 10:35 Calcium Carb Oral Suspension - PO 500 mg DAILY [facility] Administration Carvedilol 12.5 mg 08/12/17 22:00 08/13/17 09:14 Coreg - PO 12.5 mg BID [facility] Administration Fluticasone Propionate 1 spray 08/10/17 22:00 08/13/17 10:35 Flonase - NS 1 spray BID [facility] Administration Furosemide 40 mg 08/13/17 13:59 Lasix Injection - IVPUSH 08/13/17 14:00 ONCE ONE Metronidazole 500 mg in 100 mls @ 100 mls/hr 08/11/17 20:30 08/13/17 09:16 Flagyl 500mg Premixed Ivpb - IVPB 100 mls/hr Q8H-IV [facility] Administration Levofloxacin 250 mg in 50 mls @ 50 mls/hr 08/12/17 10:00 08/13/17 10:31 Levaquin 250 Mg Premixed Ivpb - IVPB 50 mls/hr DAILY [facility] Administration Montelukast Sodium 10 mg 08/10/17 20:15 08/12/17 21:18 Singulair - PO 10 mg HS [facility] Administration Xopenex Hfa Inhaler 1 each 08/10/17 23:14 08/11/17 23:06 Non-Formulary Med IH 1 each Q6H PRN Administration SHORT OF BREATH/WHEEZING Astepro (Nasal) Non- 1 each 08/11/17 10:00 Formulary Med NR BID [facility] Pantoprazole Sodium 40 mg 08/10/17 23:15 08/13/17 09:14 Protonix - PO 40 mg BID [facility] Administration Tamsulosin HCl 0.4 mg 08/10/17 20:15 08/12/17 21:18 Flomax - PO 0.4 mg HS [facility] Administration Tiotropium [place] 1 puff 08/11/17 10:00 08/13/17 10:36 Spiriva - IH 1 puff DAILY [facility] Administration Trazodone HCl 100 mg 08/10/17 22:00 08/12/17 21:19 Desyrel - PO 100 mg HS [facility] Administration Zolpidem Tartrate 5 mg 08/10/17 22:00 08/12/17 21:25 Ambien - PO 5 mg HS PRN Administration anemia in the setting of GI bleed/afib on Eliquis/Acute diverticulitis/CKD slow transfusion today, for slow down trend of Hgb ?slow GIB, did not have a further Bowel movement. repeat CBC in the pm, to assess transfusion thrombocytopenia resolved. will closely monitor counts abx per GI/ID a fib off ac in the setting of the GIB renal/card input noted AAA , as per cards/Vascular. due to his cardio-vascular co-morbidities, will aim for hgb >8. d/w Daughter. pt and RN Problem List - Problems (1) Abdominal pain Code(s): R10.9 - UNSPECIFIED ABDOMINAL PAIN Qualifiers: Abdominal location: unspecified location Qualified Code(s): R10.9 - Unspecified abdominal pain (2) Anemia Code(s): D64.9 - ANEMIA, UNSPECIFIED Qualifiers: Anemia type: unspecified type Qualified Code(s): D64.9 - Anemia, unspecified (3) Rectal bleeding Code(s): K62.5 - HEMORRHAGE OF ANUS AND RECTUM (4) Acute diverticulitis Code(s): K57.92 - DVTRCLI OF INTEST, PART UNSP, W/O PERF OR ABSCESS W/O BLEED (5) CKD (chronic kidney disease) Code(s): N18.9 - CHRONIC KIDNEY DISEASE, UNSPECIFIED Qualifiers: Chronic kidney disease stage: stage 4 (severe) Qualified Code(s): N18.4 - Chronic kidney disease, stage 4 (severe)
--- NOTE | 2017-08-13 13:59 | PN ---
Progress Note, Physician History of Present Illness: Pt seen and examined at bedside. He is awake and appear comfortable. He denies shortness of breath. He denies rectal bleeding. - Current Medication List Current Medications: Active Medications Albuterol Sulfate (Ventolin 0.083% Nebulizer Soln -) 1 amp NEB Q6H PRN PRN Reason: SHORT OF BREATH/WHEEZING Last Admin: 08/13/17 11:14 Dose: 1 amp Atorvastatin Calcium (Lipitor -) 20 mg PO HS [facility] Last Admin: 08/12/17 21:17 Dose: 20 mg Budesonide/Formoterol Fumarate (Symbicort 160/4.5mcg -) 1 puff IH DAILY [facility] Last Admin: 08/13/17 10:36 Dose: 1 puff Calcium Carbonate (Calcium Carb Oral Suspension -) 500 mg PO DAILY [facility] Last Admin: 08/13/17 10:35 Dose: 500 mg Carvedilol (Coreg -) 12.5 mg PO BID [facility] Last Admin: 08/13/17 09:14 Dose: 12.5 mg Fluticasone Propionate (Flonase -) 1 spray NS BID [facility] Last Admin: 08/13/17 10:35 Dose: 1 spray Metronidazole (Flagyl 500mg Premixed Ivpb -) 500 mg in 100 mls @ 100 mls/hr IVPB Q8H-IV [facility] Last Admin: 08/13/17 09:16 Dose: 100 mls/hr Levofloxacin (Levaquin 250 Mg Premixed Ivpb -) 250 mg in 50 mls @ 50 mls/hr IVPB DAILY [facility] Last Admin: 08/13/17 10:31 Dose: 50 mls/hr Montelukast Sodium (Singulair -) 10 mg PO [facility] Last Admin: 08/12/17 21:18 Dose: 10 mg Xopenex Hfa Inhaler (Non-Formulary Med) 1 each IH Q6H PRN PRN Reason: SHORT OF BREATH/WHEEZING Last Admin: 08/11/17 23:06 Dose: 1 each Astepro (Nasal) Non- (Formulary Med) 1 each NR BID [facility] Pantoprazole Sodium (Protonix -) 40 mg PO BID [facility] Last Admin: 08/13/17 09:14 Dose: 40 mg Tamsulosin HCl (Flomax -) 0.4 mg PO [facility] Last Admin: 08/12/17 21:18 Dose: 0.4 mg Tiotropium [place] (Spiriva -) 1 puff IH DAILY [facility] Last Admin: 08/13/17 10:36 Dose: 1 puff Trazodone HCl (Desyrel -) 100 mg PO HS [facility] Last Admin: 08/12/17 21:19 Dose: 100 mg Zolpidem Tartrate (Ambien -) 5 mg PO HS [facility] Last Admin: 08/12/17 21:25 Dose: 5 mg - Objective Vital Signs: Vital Signs Temperature 97.7 F 08/13/17 11:15 Pulse Rate 83 08/13/17 11:15 Respiratory Rate 20 08/13/17 11:15 Blood Pressure 117/73 08/13/17 11:15 O2 Sat by Pulse Oximetry (%) 96 08/13/17 09:54 Constitutional: Yes: Calm Eyes: Yes: Conjunctiva Clear HENT: Yes: Atraumatic Neck: Yes: Supple Cardiovascular: Yes: S1, S2 Respiratory: Yes: CTA Bilaterally Gastrointestinal: Yes: Soft Genitourinary: Yes: WNL Extremities: Yes: WNL Edema: Yes Edema: LLE: 1+, RLE: 1+ Neurological: Yes: Oriented Psychiatric: Yes: Oriented Labs: CBC, BMP 08/13/17 09:40 08/13/17 09:40 INR, PTT INR 1.32 (0.82-1.09) H 08/12/17 07:45 Problem List - Problems (1) CKD (chronic kidney disease) Code(s): N18.9 - CHRONIC KIDNEY DISEASE, UNSPECIFIED Qualifiers: Chronic kidney disease stage: stage 4 (severe) Qualified Code(s): N18.4 - Chronic kidney disease, stage 4 (severe) (2) Anemia Code(s): D64.9 - ANEMIA, UNSPECIFIED Qualifiers: Anemia type: unspecified type Qualified Code(s): D64.9 - Anemia, unspecified (3) Abdominal pain Code(s): R10.9 - UNSPECIFIED ABDOMINAL PAIN Qualifiers: Abdominal location: unspecified location Qualified Code(s): R10.9 - Unspecified abdominal pain (4) Rectal bleeding Code(s): K62.5 - HEMORRHAGE OF ANUS AND RECTUM (5) Acute exacerbation of COPD with asthma Code(s): J44.1 - CHRONIC OBSTRUCTIVE PULMONARY DISEASE W (ACUTE) EXACERBATION; J45.901 - UNSPECIFIED ASTHMA WITH (ACUTE) EXACERBATION (6) CHF (congestive heart failure) Code(s): I50.9 - HEART FAILURE, UNSPECIFIED Qualifiers: Congestive heart failure type: combined Congestive heart failure chronicity : acute on chronic Qualified Code(s): I50.43 - Acute on chronic combined systolic (congestive) and diastolic (congestive) heart failure Assessment/Plan Current Medications Generic Name Dose Route Start Last Admin Trade Name Freq PRN Reason Stop Dose Admin Albuterol Sulfate 1 amp 08/10/17 23:12 08/13/17 11:14 Ventolin 0.083% Nebulizer Soln - NEB 1 amp Q6H PRN Administration SHORT OF BREATH/WHEEZING Atorvastatin Calcium 20 mg 08/10/17 20:15 08/12/17 21:17 Lipitor - PO 20 mg HS [facility] Administration Budesonide/Formoterol Fumarate 1 puff 08/11/17 10:00 08/13/17 10:36 Symbicort 160/4.5mcg - IH 1 puff DAILY [facility] Administration Calcium Carbonate 500 mg 08/11/17 16:30 08/13/17 10:35 Calcium Carb Oral Suspension - PO 500 mg DAILY [facility] Administration Carvedilol 12.5 mg 08/12/17 22:00 08/13/17 09:14 Coreg - PO 12.5 mg BID [facility] Administration Fluticasone Propionate 1 spray 08/10/17 22:00 08/13/17 10:35 Flonase - NS 1 spray BID [facility] Administration Metronidazole 500 mg in 100 mls @ 100 mls/hr 08/11/17 20:30 08/13/17 09:16 Flagyl 500mg Premixed Ivpb - IVPB 100 mls/hr Q8H-IV [facility] Administration Levofloxacin 250 mg in 50 mls @ 50 mls/hr 08/12/17 10:00 08/13/17 10:31 Levaquin 250 Mg Premixed Ivpb - IVPB 50 mls/hr DAILY [facility] Administration Montelukast Sodium 10 mg 08/10/17 20:15 08/12/17 21:18 Singulair - PO 10 mg HS [facility] Administration Xopenex Hfa Inhaler 1 each 08/10/17 23:14 08/11/17 23:06 Non-Formulary Med IH 1 each Q6H PRN Administration SHORT OF BREATH/WHEEZING Astepro (Nasal) Non- 1 each 08/11/17 10:00 Formulary Med NR BID [facility] Pantoprazole Sodium 40 mg 08/10/17 23:15 08/13/17 09:14 Protonix - PO 40 mg BID [facility] Administration Tamsulosin HCl 0.4 mg 08/10/17 20:15 08/12/17 21:18 Flomax - PO 0.4 mg HS [facility] Administration Tiotropium [place] 1 puff 08/11/17 10:00 08/13/17 10:36 Spiriva - IH 1 puff DAILY [facility] Administration Trazodone HCl 100 mg 08/10/17 22:00 08/12/17 21:19 Desyrel - PO 100 mg HS [facility] Administration Zolpidem Tartrate 5 mg 08/10/17 22:00 08/12/17 21:25 Ambien - PO 5 mg HS PRN Administration Impression 1. CKD 2. ALAN 3. anemia 4. GI bleed 5. BPH 6. a-fib 7. aortic aneurysm 8. COPD 9. insomnia Plan - renal ultrasound reviewed, negative hydro. Consistent with CKD - renal function improved today - will give a dose of lasix - repeat labs in am - recall GI for follow up - cont current meds - arb is on hold - may need HD therapy if he does not improve - will follow pt closely Dr Ortega
--- NOTE | 2017-08-13 14:02 | PN ---
Progress Note, Physician History of Present Illness: Pt states he is feeling better, abd pain is resolving. Has not had a BM. Afebrile, without specific complaints. Receiving blood transfusion. - Current Medication List Current Medications: Active Medications Albuterol Sulfate (Ventolin 0.083% Nebulizer Soln -) 1 amp NEB Q6H PRN PRN Reason: SHORT OF BREATH/WHEEZING Last Admin: 08/13/17 11:14 Dose: 1 amp Atorvastatin Calcium (Lipitor -) 20 mg PO HS [facility] Last Admin: 08/12/17 21:17 Dose: 20 mg Budesonide/Formoterol Fumarate (Symbicort 160/4.5mcg -) 1 puff IH DAILY [facility] Last Admin: 08/13/17 10:36 Dose: 1 puff Calcium Carbonate (Calcium Carb Oral Suspension -) 500 mg PO DAILY [facility] Last Admin: 08/13/17 10:35 Dose: 500 mg Carvedilol (Coreg -) 12.5 mg PO BID [facility] Last Admin: 08/13/17 09:14 Dose: 12.5 mg Fluticasone Propionate (Flonase -) 1 spray NS BID [facility] Last Admin: 08/13/17 10:35 Dose: 1 spray Metronidazole (Flagyl 500mg Premixed Ivpb -) 500 mg in 100 mls @ 100 mls/hr IVPB Q8H-IV [facility] Last Admin: 08/13/17 09:16 Dose: 100 mls/hr Levofloxacin (Levaquin 250 Mg Premixed Ivpb -) 250 mg in 50 mls @ 50 mls/hr IVPB DAILY [facility] Last Admin: 08/13/17 10:31 Dose: 50 mls/hr Montelukast Sodium (Singulair -) 10 mg PO [facility] Last Admin: 08/12/17 21:18 Dose: 10 mg Xopenex Hfa Inhaler (Non-Formulary Med) 1 each IH Q6H PRN PRN Reason: SHORT OF BREATH/WHEEZING Last Admin: 08/11/17 23:06 Dose: 1 each Astepro (Nasal) Non- (Formulary Med) 1 each NR BID [facility] Pantoprazole Sodium (Protonix -) 40 mg PO BID [facility] Last Admin: 08/13/17 09:14 Dose: 40 mg Tamsulosin HCl (Flomax -) 0.4 mg PO [facility] Last Admin: 08/12/17 21:18 Dose: 0.4 mg Tiotropium [place] (Spiriva -) 1 puff IH DAILY [facility] Last Admin: 08/13/17 10:36 Dose: 1 puff Trazodone HCl (Desyrel -) 100 mg PO HS [facility] Last Admin: 08/12/17 21:19 Dose: 100 mg Zolpidem Tartrate (Ambien -) 5 mg PO HS [facility] Last Admin: 08/12/17 21:25 Dose: 5 mg - Objective Vital Signs: Vital Signs Temperature 97.7 F 08/13/17 11:15 Pulse Rate 83 08/13/17 11:15 Respiratory Rate 20 08/13/17 11:15 Blood Pressure 117/73 08/13/17 11:15 O2 Sat by Pulse Oximetry (%) 96 08/13/17 09:54 Constitutional: Yes: No Distress, Calm Cardiovascular: Yes: Regular Rate and Rhythm Respiratory: Yes: CTA Bilaterally Gastrointestinal: Yes: Normal Bowel Sounds, Soft, Tenderness (minimal with deep palpation) Musculoskeletal: Yes: WNL Integumentary: Yes: WNL Neurological: Yes: Alert, Oriented Labs: CBC, BMP 08/13/17 09:40 08/13/17 09:40 INR, PTT INR 1.32 (0.82-1.09) H 08/12/17 07:45 Problem List - Problems (1) Acute diverticulitis Code(s): K57.92 - DVTRCLI OF INTEST, PART UNSP, W/O PERF OR ABSCESS W/O BLEED (2) CKD (chronic kidney disease) Code(s): N18.9 - CHRONIC KIDNEY DISEASE, UNSPECIFIED Qualifiers: Qualified Code(s): N18.4 - Chronic kidney disease, stage 4 (severe) (3) Rectal bleeding Code(s): K62.5 - HEMORRHAGE OF ANUS AND RECTUM (4) CHF (congestive heart failure) Code(s): I50.9 - HEART FAILURE, UNSPECIFIED Qualifiers: Qualified Code(s): I50.43 - Acute on chronic combined systolic (congestive) and diastolic (congestive) heart failure Assessment/Plan 71 y.o. male with hx of CAD s/p CABG, Afib on Eliquis, AV replacement, CKD, COPD , CHF presenting with bloody/dark stools and abdominal pain. Acute sigmoid diverticulitis Worsening CKD Leukocytosis GI bleed Anemia - continue levaquin and flagyl - afebrile, leukocytosis resolved - monitor wbc, vitals pt currently appears stable at this time
[2017-08-13] MEDS ORDERED: FUROSEMIDE 40 MG/4 ML INJECTABLE VIAL ONE (14:25)
--- NOTE | 2017-08-13 16:51 | PN ---
Progress Note, Physician History of Present Illness: no BM - Current Medication List Current Medications: Active Medications Albuterol Sulfate (Ventolin 0.083% Nebulizer Soln -) 1 amp NEB Q6H PRN PRN Reason: SHORT OF BREATH/WHEEZING Last Admin: 08/13/17 11:14 Dose: 1 amp Atorvastatin Calcium (Lipitor -) 20 mg PO HS [facility] Last Admin: 08/12/17 21:17 Dose: 20 mg Budesonide/Formoterol Fumarate (Symbicort 160/4.5mcg -) 1 puff IH DAILY [facility] Last Admin: 08/13/17 10:36 Dose: 1 puff Calcium Carbonate (Calcium Carb Oral Suspension -) 500 mg PO DAILY [facility] Last Admin: 08/13/17 10:35 Dose: 500 mg Carvedilol (Coreg -) 12.5 mg PO BID [facility] Last Admin: 08/13/17 09:14 Dose: 12.5 mg Fluticasone Propionate (Flonase -) 1 spray NS BID [facility] Last Admin: 08/13/17 10:35 Dose: 1 spray Metronidazole (Flagyl 500mg Premixed Ivpb -) 500 mg in 100 mls @ 100 mls/hr IVPB Q8H-IV [facility] Last Admin: 08/13/17 09:16 Dose: 100 mls/hr Levofloxacin (Levaquin 250 Mg Premixed Ivpb -) 250 mg in 50 mls @ 50 mls/hr IVPB DAILY [facility] Last Admin: 08/13/17 10:31 Dose: 50 mls/hr Montelukast Sodium (Singulair -) 10 mg PO [facility] Last Admin: 08/12/17 21:18 Dose: 10 mg Xopenex Hfa Inhaler (Non-Formulary Med) 1 each IH Q6H PRN PRN Reason: SHORT OF BREATH/WHEEZING Last Admin: 08/11/17 23:06 Dose: 1 each Astepro (Nasal) Non- (Formulary Med) 1 each NR BID [facility] Pantoprazole Sodium (Protonix -) 40 mg PO BID [facility] Last Admin: 08/13/17 09:14 Dose: 40 mg Tamsulosin HCl (Flomax -) 0.4 mg PO [facility] Last Admin: 08/12/17 21:18 Dose: 0.4 mg Tiotropium [place] (Spiriva -) 1 puff IH DAILY [facility] Last Admin: 08/13/17 10:36 Dose: 1 puff Trazodone HCl (Desyrel -) 100 mg PO HS [facility] Last Admin: 08/12/17 21:19 Dose: 100 mg Zolpidem Tartrate (Ambien -) 5 mg PO HS [facility] Last Admin: 08/12/17 21:25 Dose: 5 mg - Objective Vital Signs: Vital Signs Temperature 97.7 F 08/13/17 15:27 Pulse Rate 78 08/13/17 14:50 Respiratory Rate 18 08/13/17 14:50 Blood Pressure 153/93 08/13/17 14:50 O2 Sat by Pulse Oximetry (%) 96 08/13/17 09:54 HENT: Yes: Atraumatic Neck: Yes: Supple Cardiovascular: Yes: Regular Rate and Rhythm Respiratory: Yes: CTA Bilaterally Gastrointestinal: Yes: Normal Bowel Sounds Extremities: Yes: WNL Neurological: Yes: Alert, Oriented Labs: CBC, BMP 08/13/17 09:40 08/13/17 09:40 INR, PTT INR 1.32 (0.82-1.09) H 08/12/17 07:45 Problem List - Problems (1) Rectal bleeding Assessment/Plan: no more bleeding Code(s): K62.5 - HEMORRHAGE OF ANUS AND RECTUM (2) CHF (congestive heart failure) Assessment/Plan: stable no sob Code(s): I50.9 - HEART FAILURE, UNSPECIFIED Qualifiers: Congestive heart failure type: combined Congestive heart failure chronicity : acute on chronic Qualified Code(s): I50.43 - Acute on chronic combined systolic (congestive) and diastolic (congestive) heart failure (3) Acute diverticulitis Assessment/Plan: on iv abx id on board Code(s): K57.92 - DVTRCLI OF INTEST, PART UNSP, W/O PERF OR ABSCESS W/O BLEED (4) Anemia Assessment/Plan: monitor s/p prbc transfusion Code(s): D64.9 - ANEMIA, UNSPECIFIED Qualifiers: Anemia type: unspecified type Qualified Code(s): D64.9 - Anemia, unspecified (5) CKD (chronic kidney disease) Assessment/Plan: monitor renal on board Code(s): N18.9 - CHRONIC KIDNEY DISEASE, UNSPECIFIED Qualifiers: Chronic kidney disease stage: stage 4 (severe) Qualified Code(s): N18.4 - Chronic kidney disease, stage 4 (severe) (6) CHF Congestive heart failure Code(s): I50.9 - HEART FAILURE, UNSPECIFIED
[2017-08-13] MEDS ORDERED: BISACODYL 5 MG TABLET.DR (FP) PO ONE (16:58)
--- NOTE | 2017-08-13 18:30 | PN ---
GI Progress Note - Objective Vital Signs: Vital Signs Temperature 97.7 F 08/13/17 15:27 Pulse Rate 78 08/13/17 14:50 Respiratory Rate 18 08/13/17 14:50 Blood Pressure 153/93 08/13/17 14:50 O2 Sat by Pulse Oximetry (%) 96 08/13/17 09:54 Labs: CBC, BMP 08/13/17 09:40 08/13/17 09:40 INR, PTT INR 1.32 (0.82-1.09) H 08/12/17 07:45 Problem List - Problems (1) Abdominal pain Assessment/Plan: resolving ischemic colitis R> will need colonoscopy as an outpatient to r/o malignancy Code(s): R10.9 - UNSPECIFIED ABDOMINAL PAIN Qualifiers: Abdominal location: unspecified location Qualified Code(s): R10.9 - Unspecified abdominal pain
[2017-08-13] MEDS ORDERED: traZODone HCL 50 MG TABLET (FP) ONE (20:52)
[2017-08-13] MEDS: ATORVASTATIN CA 20 MG TABLET (FP) PO SCH (21:20)
[2017-08-13] MEDS: metroNIDAZOLE 250 MG TABLET PO SCH (21:20)
[2017-08-13] MEDS: MONTELUKAST NA 10 MG TABLET PO SCH (21:20)
[2017-08-13] MEDS: TAMSULOSIN HCL 0.4 MG CAP.ER.24H (FP) PO SCH (21:20)
[2017-08-13] MEDS: traZODone HCL 100 MG TABLET (FP) PO SCH (21:21)
[2017-08-13] MEDS: BISACODYL 10 MG SUPP.RECT PR PRN (23:15)
[2017-08-14 00:06] LABS: ALBUMIN 2.1 g/dL (2.9-4.4); GAMMA GLOBULIN 0.4 g/dL (0.4-1.8); GLOBULIN, TOTAL 2.1 g/dL (2.2-3.9); IGA ANTIBODY 136 mg/dL (61-437); IGG ANTIBODY 330 mg/dL (700-1600); IGM ANTIBODY 36 mg/dL (15-143)
[2017-08-14] MEDS: metroNIDAZOLE 250 MG TABLET PO SCH ×3 (05:59→22:18)
[2017-08-14] MEDS ORDERED: PT OWN MED DRAWER 7, Y5N ONE ×4 (08:04→22:10)
[2017-08-14] MEDS: LIPASE/PROTEASE/AMYLASE 36,000 UNIT CAPSULE PO SCH ×3 (08:07→17:28)
[2017-08-14] MEDS: BISACODYL 10 MG SUPP.RECT PR PRN (08:18)
[2017-08-14 09:05] LABS: BASO % 0.5 % (0-2.0); EOS % 2.6 % (0-4.5); HEMOGLOBIN 9.6 GM/dL (11.7-16.9); LYMPH % 4.9 % (8-40); MCH 29.5 pg (25.7-33.7); MEAN CELL VOLUME 89.6 fl (80-96); MEAN PLT VOLUME 8.2 fl (7.5-11.1); PLATELET COUNT 172 K/MM3 (134-434); RBC 3.24 M/mm3 (4.00-5.60); RDW 15.8 % (11.9-15.9); WHITE BLOOD COUNT 11.4 K/mm3 (4.0-10.0)
[2017-08-14 09:30] LABS: ALBUMIN 2.2 g/dl (3.4-5.0); ANION GAP 10 (8-16); BILIRUBIN,TOTAL 0.2 mg/dL (0.2-1.0); BLOOD UREA NITROGEN 101 mg/dL (7-18); CALCIUM 7.6 mg/dL (8.5-10.1); CHLORIDE 109 mmol/L (98-107); CO2 20 mmol/L (21-32); GLUCOSE,RANDOM 121 mg/dL (74-106); POTASSIUM 3.9 mmol/L (3.5-5.1); SGOT/AST 6 U/L (15-37); SGPT/ALT 15 U/L (12-78); SODIUM 139 mmol/L (136-145)
[2017-08-14 09:32] LABS: ALK PHOS 65 U/L (45-117)
--- NOTE | 2017-08-14 10:08 | PN ---
Progress Note, Physician History of Present Illness: Pt is afebrile. Had his first BM, noted to be formed/dark brown. Has lower abd pain, 7/10 intensity at its worst. No other specific complaints. - Current Medication List Current Medications: Active Medications Albuterol Sulfate (Ventolin 0.083% Nebulizer Soln -) 1 amp NEB Q6H PRN PRN Reason: SHORT OF BREATH/WHEEZING Last Admin: 08/13/17 11:14 Dose: 1 amp Atorvastatin Calcium (Lipitor -) 20 mg PO HS [facility] Last Admin: 08/13/17 21:20 Dose: 20 mg Bisacodyl (Dulcolax Suppository -) 10 mg [place] PRN PRN PRN Reason: CONSTIPATION Last Admin: 08/14/17 08:18 Dose: 10 mg Budesonide/Formoterol Fumarate (Symbicort 160/4.5mcg -) 1 puff IH DAILY [facility] Last Admin: 08/13/17 10:36 Dose: 1 puff Calcium Carbonate (Calcium Carb Oral Suspension -) 500 mg PO DAILY [facility] Last Admin: 08/13/17 10:35 Dose: 500 mg Carvedilol (Coreg -) 12.5 mg PO BID [facility] Last Admin: 08/13/17 21:20 Dose: 12.5 mg Fluticasone Propionate (Flonase -) 1 spray NS BID [facility] Last Admin: 08/13/17 21:23 Dose: 1 spray Levofloxacin (Levaquin 250 Mg Premixed Ivpb -) 250 mg in 50 mls @ 50 mls/hr IVPB DAILY [facility] Last Admin: 08/13/17 10:31 Dose: 50 mls/hr Metronidazole (Flagyl -) 250 mg PO TID [facility] Last Admin: 08/14/17 05:59 Dose: 250 mg Montelukast Sodium (Singulair -) 10 mg PO HS [facility] Last Admin: 08/13/17 21:20 Dose: 10 mg Xopenex Hfa Inhaler (Non-Formulary Med) 1 each IH Q6H PRN PRN Reason: SHORT OF BREATH/WHEEZING Last Admin: 08/11/17 23:06 Dose: 1 each Astepro (Nasal) Non- (Formulary Med) 1 each NR BID [facility] Pancrelipase (Creon Dr 36,000 Units Capsule) 1 cap PO TIDCM [facility] Last Admin: 08/14/17 08:07 Dose: 1 cap Pantoprazole Sodium (Protonix -) 40 mg PO BID [facility] Last Admin: 08/13/17 21:20 Dose: 40 mg Tamsulosin HCl (Flomax -) 0.4 mg PO [facility] Last Admin: 08/13/17 21:20 Dose: 0.4 mg Tiotropium [place] (Spiriva -) 1 puff IH DAILY [facility] Last Admin: 08/13/17 10:36 Dose: 1 puff Trazodone HCl (Desyrel -) 100 mg PO [facility] Last Admin: 08/13/17 21:21 Dose: 100 mg Zolpidem Tartrate (Ambien -) 10 mg PO HS PRN PRN Reason: INSOMNIA - Objective Vital Signs: Vital Signs Temperature 98.1 F 08/14/17 06:00 Pulse Rate 85 08/14/17 06:00 Respiratory Rate 20 08/14/17 06:00 Blood Pressure 153/81 08/14/17 06:00 O2 Sat by Pulse Oximetry (%) 97 08/14/17 06:00 Constitutional: Yes: No Distress Neck: Yes: Supple Cardiovascular: Yes: Regular Rate and Rhythm Respiratory: Yes: Regular Gastrointestinal: Yes: Normal Bowel Sounds, Soft, Tenderness (lower abd) Edema: Yes Edema: LLE: 3+, RLE: 3+ Labs: CBC, BMP 08/14/17 08:55 08/14/17 08:55 INR, PTT INR 1.32 (0.82-1.09) H 08/12/17 07:45 Problem List - Problems (1) Acute diverticulitis Code(s): K57.92 - DVTRCLI OF INTEST, PART UNSP, W/O PERF OR ABSCESS W/O BLEED (2) CKD (chronic kidney disease) Code(s): N18.9 - CHRONIC KIDNEY DISEASE, UNSPECIFIED Qualifiers: Chronic kidney disease stage: stage 4 (severe) Qualified Code(s): N18.4 - Chronic kidney disease, stage 4 (severe) (3) Rectal bleeding Code(s): K62.5 - HEMORRHAGE OF ANUS AND RECTUM (4) CHF (congestive heart failure) Code(s): I50.9 - HEART FAILURE, UNSPECIFIED Qualifiers: Congestive heart failure type: combined Congestive heart failure chronicity : acute on chronic Qualified Code(s): I50.43 - Acute on chronic combined systolic (congestive) and diastolic (congestive) heart failure Assessment/Plan 71 y.o. male with hx of CAD s/p CABG, Afib on Eliquis, AV replacement, CKD, COPD , CHF presenting with bloody/dark stools and abdominal pain. Acute sigmoid diverticulitis CKD Leukocytosis - improved GI bleed Anemia - continue levaquin and flagyl IV - monitor for resolution of pain - monitor wbc, vitals, currently afebrile
[2017-08-14] MEDS: CARVEDILOL 12.5 MG TABLET (FP) PO SCH ×2 (10:09→22:18)
[2017-08-14] MEDS: CALCIUM CARBONATE SUSPENSION - 500 MG/5 ML ML PO SCH (10:09)
[2017-08-14] MEDS: PANTOPRAZOLE 40 MG TABLET (FP) PO SCH ×2 (10:09→22:18)
[2017-08-14] MEDS: TIOTROPIUM BROMIDE 18 MCG/INH (DEVICE W/ 5 CAPSULES) IH SCH (10:09)
[2017-08-14] MEDS: BUDESONIDE/FORMETEROL FUMARATE 160/4.5 mcg INHALER IH SCH (10:09)
[2017-08-14] MEDS: LEVOFLOXACIN 250 MG IVPB 250 MG/50 ML MG IVPB SCH (10:10)
[2017-08-14] MEDS: FLUTICASONE PROP 0.05% 16 GM NASAL SPRAY NS SCH ×2 (10:10→22:19)
[2017-08-14] MEDS ORDERED: FUROSEMIDE 40 MG/4 ML INJECTABLE VIAL IVPUSH ONE (15:58)
--- NOTE | 2017-08-14 15:58 | PN ---
Progress Note, Physician History of Present Illness: Pt seen and examined at bedside. He says that his stool is dark. He denies red blood per rectum. He denies shortness of breath. - Current Medication List Current Medications: Active Medications Albuterol Sulfate (Ventolin 0.083% Nebulizer Soln -) 1 amp NEB Q6H PRN PRN Reason: SHORT OF BREATH/WHEEZING Last Admin: 08/13/17 11:14 Dose: 1 amp Atorvastatin Calcium (Lipitor -) 20 mg PO HS [facility] Last Admin: 08/13/17 21:20 Dose: 20 mg Bisacodyl (Dulcolax Suppository -) 10 mg [place] PRN PRN PRN Reason: CONSTIPATION Last Admin: 08/14/17 08:18 Dose: 10 mg Budesonide/Formoterol Fumarate (Symbicort 160/4.5mcg -) 1 puff IH DAILY [facility] Last Admin: 08/14/17 10:09 Dose: 1 puff Calcium Carbonate (Calcium Carb Oral Suspension -) 500 mg PO DAILY [facility] Last Admin: 08/14/17 10:09 Dose: 500 mg Carvedilol (Coreg -) 12.5 mg PO BID [facility] Last Admin: 08/14/17 10:09 Dose: 12.5 mg Fluticasone Propionate (Flonase -) 1 spray NS BID [facility] Last Admin: 08/14/17 10:10 Dose: 1 spray Levofloxacin (Levaquin 250 Mg Premixed Ivpb -) 250 mg in 50 mls @ 50 mls/hr IVPB DAILY [facility] Last Admin: 08/14/17 10:10 Dose: 50 mls/hr Metronidazole (Flagyl -) 250 mg PO TID [facility] Last Admin: 08/14/17 13:44 Dose: 250 mg Montelukast Sodium (Singulair -) 10 mg PO HS [facility] Last Admin: 08/13/17 21:20 Dose: 10 mg Xopenex Hfa Inhaler (Non-Formulary Med) 1 each IH Q6H PRN PRN Reason: SHORT OF BREATH/WHEEZING Last Admin: 08/11/17 23:06 Dose: 1 each Astepro (Nasal) Non- (Formulary Med) 1 each NR BID [facility] Pancrelipase (Creon Dr 36,000 Units Capsule) 1 cap PO TIDCM [facility] Last Admin: 08/14/17 12:09 Dose: 1 cap Pantoprazole Sodium (Protonix -) 40 mg PO BID [facility] Last Admin: 08/14/17 10:09 Dose: 40 mg Tamsulosin HCl (Flomax -) 0.4 mg PO [facility] Last Admin: 08/13/17 21:20 Dose: 0.4 mg Tiotropium [place] (Spiriva -) 1 puff IH DAILY [facility] Last Admin: 08/14/17 10:09 Dose: 1 puff Trazodone HCl (Desyrel -) 100 mg PO HS [facility] Last Admin: 08/13/17 21:21 Dose: 100 mg Zolpidem Tartrate (Ambien -) 10 mg PO HS PRN PRN Reason: INSOMNIA - Objective Vital Signs: Vital Signs Temperature 98.3 F 08/14/17 14:35 Pulse Rate 93 H 08/14/17 14:35 Respiratory Rate 20 08/14/17 14:35 Blood Pressure 143/75 08/14/17 14:35 O2 Sat by Pulse Oximetry (%) 98 08/14/17 14:00 Constitutional: Yes: Calm Eyes: Yes: Conjunctiva Clear HENT: Yes: Atraumatic Neck: Yes: Supple Cardiovascular: Yes: S1, S2 Respiratory: Yes: CTA Bilaterally Gastrointestinal: Yes: Normal Bowel Sounds, Soft, Tenderness Genitourinary: Yes: WNL Musculoskeletal: Yes: WNL Edema: Yes Edema: LLE: 1+, RLE: 1+ Neurological: Yes: Oriented Psychiatric: Yes: Oriented Labs: CBC, BMP 08/14/17 08:55 08/14/17 08:55 INR, PTT INR 1.32 (0.82-1.09) H 08/12/17 07:45 Problem List - Problems (1) CKD (chronic kidney disease) Code(s): N18.9 - CHRONIC KIDNEY DISEASE, UNSPECIFIED Qualifiers: Chronic kidney disease stage: stage 4 (severe) Qualified Code(s): N18.4 - Chronic kidney disease, stage 4 (severe) (2) Anemia Code(s): D64.9 - ANEMIA, UNSPECIFIED Qualifiers: Anemia type: unspecified type Qualified Code(s): D64.9 - Anemia, unspecified (3) Abdominal pain Code(s): R10.9 - UNSPECIFIED ABDOMINAL PAIN Qualifiers: Abdominal location: unspecified location Qualified Code(s): R10.9 - Unspecified abdominal pain (4) Rectal bleeding Code(s): K62.5 - HEMORRHAGE OF ANUS AND RECTUM (5) Acute exacerbation of COPD with asthma Code(s): J44.1 - CHRONIC OBSTRUCTIVE PULMONARY DISEASE W (ACUTE) EXACERBATION; J45.901 - UNSPECIFIED ASTHMA WITH (ACUTE) EXACERBATION (6) CHF (congestive heart failure) Code(s): I50.9 - HEART FAILURE, UNSPECIFIED Qualifiers: Congestive heart failure type: combined Congestive heart failure chronicity : acute on chronic Qualified Code(s): I50.43 - Acute on chronic combined systolic (congestive) and diastolic (congestive) heart failure Assessment/Plan Current Medications Generic Name Dose Route Start Last Admin Trade Name Freq PRN Reason Stop Dose Admin Albuterol Sulfate 1 amp 08/10/17 23:12 08/13/17 11:14 Ventolin 0.083% Nebulizer Soln - NEB 1 amp Q6H PRN Administration SHORT OF BREATH/WHEEZING Atorvastatin Calcium 20 mg 08/10/17 20:15 08/13/17 21:20 Lipitor - PO 20 mg HS EDY Administration Bisacodyl 10 mg 08/13/17 23:06 08/14/17 08:18 Dulcolax Suppository - [place] 10 mg PRN PRN Administration CONSTIPATION Budesonide/Formoterol Fumarate 1 puff 08/11/17 10:00 08/14/17 10:09 Symbicort 160/4.5mcg - IH 1 puff DAILY EDY Administration Calcium Carbonate 500 mg 08/11/17 16:30 08/14/17 10:09 Calcium Carb Oral Suspension - PO 500 mg DAILY EDY Administration Carvedilol 12.5 mg 08/12/17 22:00 08/14/17 10:09 Coreg - PO 12.5 mg BID EDY Administration Fluticasone Propionate 1 spray 08/10/17 22:00 08/14/17 10:10 Flonase - NS 1 spray BID EDY Administration Levofloxacin 250 mg in 50 mls @ 50 mls/hr 08/12/17 10:00 08/14/17 10:10 Levaquin 250 Mg Premixed Ivpb - IVPB 50 mls/hr DAILY EDY Administration Metronidazole 250 mg 08/13/17 22:00 08/14/17 13:44 Flagyl - PO 250 mg TID EDY Administration Montelukast Sodium 10 mg 08/10/17 20:15 08/13/17 21:20 Singulair - PO 10 mg HS EDY Administration Xopenex Hfa Inhaler 1 each 08/10/17 23:14 08/11/17 23:06 Non-Formulary Med IH 1 each Q6H PRN Administration SHORT OF BREATH/WHEEZING Astepro (Nasal) Non- 1 each 08/11/17 10:00 Formulary Med NR BID EDY Pancrelipase 1 cap 08/14/17 08:00 08/14/17 12:09 Crearmando Olmos 36,000 Units Capsule PO 1 cap TIDCM EDY Administration Pantoprazole Sodium 40 mg 08/10/17 23:15 08/14/17 10:09 Protonix - PO 40 mg BID EDY Administration Tamsulosin HCl 0.4 mg 08/10/17 20:15 08/13/17 21:20 Flomax - PO 0.4 mg HS EDY Administration Tiotropium [place] 1 puff 08/11/17 10:00 08/14/17 10:09 Spiriva - IH 1 puff DAILY EDY Administration Trazodone HCl 100 mg 08/10/17 22:00 08/13/17 21:21 Desyrel - PO 100 mg HS EDY Administration Zolpidem Tartrate 10 mg 08/13/17 23:07 Ambien - PO HS PRN INSOMNIA Impression 1. CKD 2. ALAN 3. anemia 4. GI bleed 5. BPH 6. a-fib 7. aortic aneurysm 8. COPD 9. insomnia Plan - renal function is improving - GI follow up - will give dose of lasix - repeat labs in am - cont current meds - arb is on hold for now - will follow pt closely Dr Ortega
--- NOTE | 2017-08-14 16:28 | PN ---
Progress Note, Physician History of Present Illness: Denies further rectal bleed, now small black stools, denies chest pain or dyspnea. LLQ pain slowly improving, reports abd bloating. - Current Medication List Current Medications: Active Medications Albuterol Sulfate (Ventolin 0.083% Nebulizer Soln -) 1 amp NEB Q6H PRN PRN Reason: SHORT OF BREATH/WHEEZING Last Admin: 08/13/17 11:14 Dose: 1 amp Atorvastatin Calcium (Lipitor -) 20 mg PO HS [facility] Last Admin: 08/13/17 21:20 Dose: 20 mg Bisacodyl (Dulcolax Suppository -) 10 mg [place] PRN PRN PRN Reason: CONSTIPATION Last Admin: 08/14/17 08:18 Dose: 10 mg Budesonide/Formoterol Fumarate (Symbicort 160/4.5mcg -) 1 puff IH DAILY [facility] Last Admin: 08/14/17 10:09 Dose: 1 puff Calcium Carbonate (Calcium Carb Oral Suspension -) 500 mg PO DAILY [facility] Last Admin: 08/14/17 10:09 Dose: 500 mg Carvedilol (Coreg -) 12.5 mg PO BID [facility] Last Admin: 08/14/17 10:09 Dose: 12.5 mg Fluticasone Propionate (Flonase -) 1 spray NS BID [facility] Last Admin: 08/14/17 10:10 Dose: 1 spray Levofloxacin (Levaquin 250 Mg Premixed Ivpb -) 250 mg in 50 mls @ 50 mls/hr IVPB DAILY [facility] Last Admin: 08/14/17 10:10 Dose: 50 mls/hr Metronidazole (Flagyl -) 250 mg PO TID [facility] Last Admin: 08/14/17 13:44 Dose: 250 mg Montelukast Sodium (Singulair -) 10 mg PO HS [facility] Last Admin: 08/13/17 21:20 Dose: 10 mg Xopenex Hfa Inhaler (Non-Formulary Med) 1 each IH Q6H PRN PRN Reason: SHORT OF BREATH/WHEEZING Last Admin: 08/11/17 23:06 Dose: 1 each Astepro (Nasal) Non- (Formulary Med) 1 each NR BID [facility] Pancrelipase (Creon Dr 36,000 Units Capsule) 1 cap PO TIDCM [facility] Last Admin: 08/14/17 12:09 Dose: 1 cap Pantoprazole Sodium (Protonix -) 40 mg PO BID [facility] Last Admin: 08/14/17 10:09 Dose: 40 mg Tamsulosin HCl (Flomax -) 0.4 mg PO HS [facility] Last Admin: 08/13/17 21:20 Dose: 0.4 mg Tiotropium [place] (Spiriva -) 1 puff IH DAILY [facility] Last Admin: 08/14/17 10:09 Dose: 1 puff Trazodone HCl (Desyrel -) 100 mg PO HS [facility] Last Admin: 08/13/17 21:21 Dose: 100 mg Zolpidem Tartrate (Ambien -) 10 mg PO HS PRN PRN Reason: INSOMNIA - Objective Vital Signs: Vital Signs Temperature 98.3 F 08/14/17 14:35 Pulse Rate 93 H 08/14/17 14:35 Respiratory Rate 20 08/14/17 14:35 Blood Pressure 143/75 08/14/17 14:35 O2 Sat by Pulse Oximetry (%) 98 08/14/17 14:00 Constitutional: Yes: No Distress, Calm Neck: Yes: Supple Cardiovascular: Yes: Regular Rate and Rhythm Respiratory: Yes: Regular, Diminished Gastrointestinal: Yes: Normal Bowel Sounds, Soft, Abdomen, Obese Edema: Yes Edema: LLE: 2+, RLE: 2+ Labs: CBC, BMP 08/14/17 08:55 08/14/17 08:55 INR, PTT INR 1.32 (0.82-1.09) H 08/12/17 07:45 Problem List - Problems (1) Anemia Code(s): D64.9 - ANEMIA, UNSPECIFIED Qualifiers: Anemia type: unspecified type Qualified Code(s): D64.9 - Anemia, unspecified (2) CKD (chronic kidney disease) Code(s): N18.9 - CHRONIC KIDNEY DISEASE, UNSPECIFIED Qualifiers: Chronic kidney disease stage: stage 4 (severe) Qualified Code(s): N18.4 - Chronic kidney disease, stage 4 (severe) (3) CVD (cerebrovascular disease) Code(s): I67.9 - CEREBROVASCULAR DISEASE, UNSPECIFIED (4) Hx of CABG Code(s): Z95.1 - PRESENCE OF AORTOCORONARY BYPASS GRAFT (5) Hypercholesterolemia Code(s): E78.00 - PURE HYPERCHOLESTEROLEMIA, UNSPECIFIED (6) Presence of permanent cardiac pacemaker Code(s): Z95.0 - PRESENCE OF CARDIAC PACEMAKER (7) Sick sinus syndrome Code(s): I49.5 - SICK SINUS SYNDROME (8) CHF Congestive heart failure Code(s): I50.9 - HEART FAILURE, UNSPECIFIED (9) Abdominal aortic aneurysm (AAA) Code(s): I71.4 - ABDOMINAL AORTIC ANEURYSM, WITHOUT RUPTURE Qualifiers: Presence of rupture: without rupture Qualified Code(s): I71.4 - Abdominal aortic aneurysm, without rupture (10) Ischemic colitis Code(s): K55.9 - VASCULAR DISORDER OF INTESTINE, UNSPECIFIED (11) Rectal bleeding Code(s): K62.5 - HEMORRHAGE OF ANUS AND RECTUM Assessment/Plan 1. Rectal bleed, underlying ischemic colitis 2. CAD s/p CABG, angina pectoris 3. Persistent AF with underlying PPM for sick sinus syndrome 4. Acute on CKD with worsened creatinine 5. Hypercholesterolemia 6. CVA/TIA 7. COPD 8. TAA and AAA PLAN: 1. Plan for outpatient colonoscopy to exclude malignancy 2. Renal function needs to be followed closely 3. Continue Carvedilol 12.5 bid 4. Continue Atorvastatin 20 qhs 5. Monitor CBC and transfuse PRBC as needed 6. TAA and AAA likely also needs surveillance 7. Complete abx course, compression therapy with GABE wraps Further plans are to follow. Importance of above issues emphasized to patient. Currently he is off Eliquis, but will need to resume once cleared by GI Follow up with Dr. Maxi Mello, cardiology at [facility] upon discharge
--- NOTE | 2017-08-14 20:19 | PN ---
Progress Note, Physician History of Present Illness: had bm some belly pain - Current Medication List Current Medications: Active Medications Albuterol Sulfate (Ventolin 0.083% Nebulizer Soln -) 1 amp NEB Q6H PRN PRN Reason: SHORT OF BREATH/WHEEZING Last Admin: 08/13/17 11:14 Dose: 1 amp Atorvastatin Calcium (Lipitor -) 20 mg PO [facility] Last Admin: 08/13/17 21:20 Dose: 20 mg Bisacodyl (Dulcolax Suppository -) 10 mg [place] PRN PRN PRN Reason: CONSTIPATION Last Admin: 08/14/17 08:18 Dose: 10 mg Budesonide/Formoterol Fumarate (Symbicort 160/4.5mcg -) 1 puff IH DAILY [facility] Last Admin: 08/14/17 10:09 Dose: 1 puff Calcium Carbonate (Calcium Carb Oral Suspension -) 500 mg PO DAILY [facility] Last Admin: 08/14/17 10:09 Dose: 500 mg Carvedilol (Coreg -) 12.5 mg PO BID [facility] Last Admin: 08/14/17 10:09 Dose: 12.5 mg Fluticasone Propionate (Flonase -) 1 spray NS BID [facility] Last Admin: 08/14/17 10:10 Dose: 1 spray Levofloxacin (Levaquin 250 Mg Premixed Ivpb -) 250 mg in 50 mls @ 50 mls/hr IVPB DAILY [facility] Last Admin: 08/14/17 10:10 Dose: 50 mls/hr Metronidazole (Flagyl -) 250 mg PO TID [facility] Last Admin: 08/14/17 13:44 Dose: 250 mg Montelukast Sodium (Singulair -) 10 mg PO [facility] Last Admin: 08/13/17 21:20 Dose: 10 mg Xopenex Hfa Inhaler (Non-Formulary Med) 1 each IH Q6H PRN PRN Reason: SHORT OF BREATH/WHEEZING Last Admin: 08/11/17 23:06 Dose: 1 each Astepro (Nasal) Non- (Formulary Med) 1 each NR BID [facility] Pancrelipase (Creon Dr 36,000 Units Capsule) 1 cap PO TIDCM [facility] Last Admin: 08/14/17 17:28 Dose: 1 cap Pantoprazole Sodium (Protonix -) 40 mg PO BID [facility] Last Admin: 08/14/17 10:09 Dose: 40 mg Tamsulosin HCl (Flomax -) 0.4 mg PO HS [facility] Last Admin: 08/13/17 21:20 Dose: 0.4 mg Tiotropium [place] (Spiriva -) 1 puff IH DAILY [facility] Last Admin: 08/14/17 10:09 Dose: 1 puff Trazodone HCl (Desyrel -) 100 mg PO HS [facility] Last Admin: 08/13/17 21:21 Dose: 100 mg Zolpidem Tartrate (Ambien -) 10 mg PO HS PRN PRN Reason: INSOMNIA - Objective Vital Signs: Vital Signs Temperature 98.3 F 08/14/17 14:35 Pulse Rate 93 H 08/14/17 14:35 Respiratory Rate 20 08/14/17 14:35 Blood Pressure 143/75 08/14/17 14:35 O2 Sat by Pulse Oximetry (%) 98 08/14/17 14:00 Constitutional: Yes: No Distress HENT: Yes: Atraumatic Neck: Yes: Supple Cardiovascular: Yes: Regular Rate and Rhythm Respiratory: Yes: CTA Bilaterally Gastrointestinal: Yes: Normal Bowel Sounds, Tenderness (rlq...mild) Extremities: Yes: WNL Neurological: Yes: Alert, Oriented Labs: CBC, BMP 08/14/17 08:55 08/14/17 08:55 INR, PTT INR 1.32 (0.82-1.09) H 08/12/17 07:45 Problem List - Problems (1) Rectal bleeding Assessment/Plan: resolved Code(s): K62.5 - HEMORRHAGE OF ANUS AND RECTUM (2) CHF (congestive heart failure) Assessment/Plan: stable no sob Code(s): I50.9 - HEART FAILURE, UNSPECIFIED Qualifiers: Congestive heart failure type: combined Congestive heart failure chronicity : acute on chronic Qualified Code(s): I50.43 - Acute on chronic combined systolic (congestive) and diastolic (congestive) heart failure (3) Acute diverticulitis Assessment/Plan: on iv abx id on board Code(s): K57.92 - DVTRCLI OF INTEST, PART UNSP, W/O PERF OR ABSCESS W/O BLEED (4) Anemia Assessment/Plan: monitor s/p prbc transfusion Code(s): D64.9 - ANEMIA, UNSPECIFIED Qualifiers: Anemia type: unspecified type Qualified Code(s): D64.9 - Anemia, unspecified (5) CKD (chronic kidney disease) Assessment/Plan: monitor renal on board Code(s): N18.9 - CHRONIC KIDNEY DISEASE, UNSPECIFIED Qualifiers: Chronic kidney disease stage: stage 4 (severe) Qualified Code(s): N18.4 - Chronic kidney disease, stage 4 (severe) (6) CHF Congestive heart failure Code(s): I50.9 - HEART FAILURE, UNSPECIFIED
[2017-08-14] MEDS: traZODone HCL 100 MG TABLET (FP) PO SCH (22:18)
[2017-08-14] MEDS: ATORVASTATIN CA 20 MG TABLET (FP) PO SCH (22:18)
[2017-08-14] MEDS: TAMSULOSIN HCL 0.4 MG CAP.ER.24H (FP) PO SCH (22:18)
[2017-08-14] MEDS: MONTELUKAST NA 10 MG TABLET PO SCH (22:18)
[2017-08-15] MEDS: ZOLPIDEM TARTRATE 5 MG TABLET PO PRN (01:13)
[2017-08-15] MEDS: metroNIDAZOLE 250 MG TABLET PO SCH ×3 (06:04→22:43)
[2017-08-15 08:27] LABS: BASO % 0.4 % (0-2.0); EOS % 2.4 % (0-4.5); HEMATOCRIT 29.2 % (35.4-49); HEMOGLOBIN 9.8 GM/dL (11.7-16.9); LYMPH % 4.5 % (8-40); MCH 29.8 pg (25.7-33.7); MCHC 33.5 g/dl (32.0-35.9); MEAN CELL VOLUME 89.1 fl (80-96); MONO % 6.6 % (3.8-10.2); NEUT % 86.1 % (42.8-82.8); PLATELET COUNT 179 K/MM3 (134-434); RBC 3.27 M/mm3 (4.00-5.60); RDW 15.8 % (11.9-15.9); WHITE BLOOD COUNT 9.9 K/mm3 (4.0-10.0)
[2017-08-15] MEDS ORDERED: PT OWN MED DRAWER 7, Y5N ONE ×5 (08:43→23:00)
[2017-08-15] MEDS: LIPASE/PROTEASE/AMYLASE 36,000 UNIT CAPSULE PO SCH ×3 (08:47→17:26)
[2017-08-15 08:59] LABS: ANION GAP 13 (8-16); BLOOD UREA NITROGEN 90 mg/dL (7-18); CALCIUM 7.9 mg/dL (8.5-10.1); CHLORIDE 106 mmol/L (98-107); CO2 20 mmol/L (21-32); CREATININE 4.4 mg/dL (0.7-1.3); GLUCOSE,RANDOM 103 mg/dL (74-106); POTASSIUM 3.7 mmol/L (3.5-5.1); SODIUM 139 mmol/L (136-145)
--- NOTE | 2017-08-15 09:50 | FALL ---
Fall Exam - Event Witnessed fall: No Location of Fall: Patient Room Fall from: Chair - Pre-Fall Fall Risk: High Risk Mental Status: Alert, Oriented Current Medications: Current Medications Generic Name Dose Route Start Last Admin Trade Name Freq PRN Reason Stop Dose Admin Albuterol Sulfate 1 amp 08/10/17 23:12 08/13/17 11:14 Ventolin 0.083% Nebulizer Soln - NEB 1 amp Q6H PRN Administration SHORT OF BREATH/WHEEZING Atorvastatin Calcium 20 mg 08/10/17 20:15 08/14/17 22:18 Lipitor - PO 20 mg HS EDY Administration Bisacodyl 10 mg 08/13/17 23:06 08/14/17 08:18 Dulcolax Suppository - [place] 10 mg PRN PRN Administration CONSTIPATION Budesonide/Formoterol Fumarate 1 puff 08/11/17 10:00 08/14/17 10:09 Symbicort 160/4.5mcg - IH 1 puff DAILY EDY Administration Calcium Carbonate 500 mg 08/11/17 16:30 08/14/17 10:09 Calcium Carb Oral Suspension - PO 500 mg DAILY EDY Administration Carvedilol 12.5 mg 08/12/17 22:00 08/14/17 22:18 Coreg - PO 12.5 mg BID EDY Administration Fluticasone Propionate 1 spray 08/10/17 22:00 08/14/17 22:19 Flonase - NS 1 spray BID EDY Administration Levofloxacin 250 mg in 50 mls @ 50 mls/hr 08/12/17 10:00 08/14/17 10:10 Levaquin 250 Mg Premixed Ivpb - IVPB 50 mls/hr DAILY EDY Administration Metronidazole 250 mg 08/13/17 22:00 08/15/17 06:04 Flagyl - PO 250 mg TID EDY Administration Montelukast Sodium 10 mg 08/10/17 20:15 08/14/17 22:18 Singulair - PO 10 mg HS EDY Administration Xopenex Hfa Inhaler 1 each 08/10/17 23:14 08/11/17 23:06 Non-Formulary Med IH 1 each Q6H PRN Administration SHORT OF BREATH/WHEEZING Pancrelipase 1 cap 08/14/17 08:00 08/15/17 08:47 Crearmando Olmos 36,000 Units Capsule PO 1 cap TIDCM EDY Administration Pantoprazole Sodium 40 mg 08/10/17 23:15 08/14/17 22:18 Protonix - PO 40 mg BID EDY Administration Tamsulosin HCl 0.4 mg 08/10/17 20:15 08/14/17 22:18 Flomax - PO 0.4 mg HS EDY Administration Tiotropium [place] 1 puff 08/11/17 10:00 08/14/17 10:09 Spiriva - IH 1 puff DAILY EDY Administration Trazodone HCl 100 mg 08/10/17 22:00 08/14/17 22:18 Desyrel - PO 100 mg HS EDY Administration Zolpidem Tartrate 10 mg 08/13/17 23:07 08/15/17 01:13 Ambien - PO 10 mg HS PRN Administration INSOMNIA - Post-Fall Patient Outcome: No Injury Exam Findings: No focal tenderness. No neurologic deficits. No pain Treatment: None Vital Signs: Vital Signs Temperature 97.7 F 08/15/17 06:00 Pulse Rate 62 08/15/17 06:00 Respiratory Rate 20 08/15/17 06:00 Blood Pressure 128/72 08/15/17 06:00 O2 Sat by Pulse Oximetry (%) 97 08/15/17 06:00 LOC Post-Fall: Awake, Alert, Oriented Identify factors for HIGH RISK for Head Injury: None of the above (Due to rectal bleed on presentation, pt is not on AC or antiplatelet)
[2017-08-15] MEDS: CALCIUM CARBONATE SUSPENSION - 500 MG/5 ML ML PO SCH (10:00)
[2017-08-15] MEDS: CARVEDILOL 12.5 MG TABLET (FP) PO SCH ×2 (10:00→22:45)
[2017-08-15] MEDS: LEVOFLOXACIN 250 MG IVPB 250 MG/50 ML MG IVPB SCH (10:00)
[2017-08-15] MEDS: PANTOPRAZOLE 40 MG TABLET (FP) PO SCH ×2 (10:00→22:42)
[2017-08-15] MEDS: BUDESONIDE/FORMETEROL FUMARATE 160/4.5 mcg INHALER IH SCH (10:02)
[2017-08-15] MEDS: FLUTICASONE PROP 0.05% 16 GM NASAL SPRAY NS SCH ×2 (10:02→22:46)
--- NOTE | 2017-08-15 10:44 | PN ---
Progress Note, Physician History of Present Illness: Denies further rectal bleed, now small black stools, denies chest pain or dyspnea. LLQ pain persists, reports abd bloating and gassiness. Experienced mechanical fall without syncope. - Current Medication List Current Medications: Active Medications Albuterol Sulfate (Ventolin 0.083% Nebulizer Soln -) 1 amp NEB Q6H PRN PRN Reason: SHORT OF BREATH/WHEEZING Last Admin: 08/13/17 11:14 Dose: 1 amp Atorvastatin Calcium (Lipitor -) 20 mg PO HS [facility] Last Admin: 08/14/17 22:18 Dose: 20 mg Bisacodyl (Dulcolax Suppository -) 10 mg [place] PRN PRN PRN Reason: CONSTIPATION Last Admin: 08/14/17 08:18 Dose: 10 mg Budesonide/Formoterol Fumarate (Symbicort 160/4.5mcg -) 1 puff IH DAILY [facility] Last Admin: 08/15/17 10:02 Dose: 1 puff Calcium Carbonate (Calcium Carb Oral Suspension -) 500 mg PO DAILY [facility] Last Admin: 08/15/17 10:00 Dose: 500 mg Carvedilol (Coreg -) 12.5 mg PO BID [facility] Last Admin: 08/15/17 10:00 Dose: 12.5 mg Fluticasone Propionate (Flonase -) 1 spray NS BID [facility] Last Admin: 08/15/17 10:02 Dose: 1 spray Levofloxacin (Levaquin 250 Mg Premixed Ivpb -) 250 mg in 50 mls @ 50 mls/hr IVPB DAILY [facility] Last Admin: 08/15/17 10:00 Dose: 50 mls/hr Metronidazole (Flagyl -) 250 mg PO TID [facility] Last Admin: 08/15/17 06:04 Dose: 250 mg Montelukast Sodium (Singulair -) 10 mg PO HS [facility] Last Admin: 08/14/17 22:18 Dose: 10 mg Xopenex Hfa Inhaler (Non-Formulary Med) 1 each IH Q6H PRN PRN Reason: SHORT OF BREATH/WHEEZING Last Admin: 08/11/17 23:06 Dose: 1 each Pancrelipase (Creon Dr 36,000 Units Capsule) 1 cap PO TIDCM [facility] Last Admin: 08/15/17 08:47 Dose: 1 cap Pantoprazole Sodium (Protonix -) 40 mg PO BID [facility] Last Admin: 08/15/17 10:00 Dose: 40 mg Tamsulosin HCl (Flomax -) 0.4 mg PO HS [facility] Last Admin: 08/14/17 22:18 Dose: 0.4 mg Tiotropium [place] (Spiriva -) 1 puff IH DAILY [facility] Last Admin: 08/14/17 10:09 Dose: 1 puff Trazodone HCl (Desyrel -) 100 mg PO HS [facility] Last Admin: 08/14/17 22:18 Dose: 100 mg Zolpidem Tartrate (Ambien -) 10 mg PO HS PRN PRN Reason: INSOMNIA Last Admin: 08/15/17 01:13 Dose: 10 mg - Objective Vital Signs: Vital Signs Temperature 98.2 F 08/15/17 09:51 Pulse Rate 60 08/15/17 09:51 Respiratory Rate 20 08/15/17 09:51 Blood Pressure 123/71 08/15/17 09:51 O2 Sat by Pulse Oximetry (%) 97 08/15/17 06:00 Constitutional: Yes: No Distress, Calm Neck: Yes: Supple Cardiovascular: Yes: Regular Rate and Rhythm Respiratory: Yes: Regular, Diminished Gastrointestinal: Yes: Normal Bowel Sounds, Soft, Distention, Tenderness Edema: Yes (Wrapped) Edema: LLE: 1+, RLE: 1+ Labs: CBC, BMP 08/15/17 07:30 08/15/17 07:30 INR, PTT INR 1.32 (0.82-1.09) H 08/12/17 07:45 Problem List - Problems (1) Anemia Code(s): D64.9 - ANEMIA, UNSPECIFIED Qualifiers: Anemia type: unspecified type Qualified Code(s): D64.9 - Anemia, unspecified (2) CKD (chronic kidney disease) Code(s): N18.9 - CHRONIC KIDNEY DISEASE, UNSPECIFIED Qualifiers: Chronic kidney disease stage: stage 4 (severe) Qualified Code(s): N18.4 - Chronic kidney disease, stage 4 (severe) (3) CVD (cerebrovascular disease) Code(s): I67.9 - CEREBROVASCULAR DISEASE, UNSPECIFIED (4) Hx of CABG Code(s): Z95.1 - PRESENCE OF AORTOCORONARY BYPASS GRAFT (5) Hypercholesterolemia Code(s): E78.00 - PURE HYPERCHOLESTEROLEMIA, UNSPECIFIED (6) Presence of permanent cardiac pacemaker Code(s): Z95.0 - PRESENCE OF CARDIAC PACEMAKER (7) Sick sinus syndrome Code(s): I49.5 - SICK SINUS SYNDROME (8) CHF Congestive heart failure Code(s): I50.9 - HEART FAILURE, UNSPECIFIED (9) Abdominal aortic aneurysm (AAA) Code(s): I71.4 - ABDOMINAL AORTIC ANEURYSM, WITHOUT RUPTURE Qualifiers: Presence of rupture: without rupture Qualified Code(s): I71.4 - Abdominal aortic aneurysm, without rupture (10) Ischemic colitis Code(s): K55.9 - VASCULAR DISORDER OF INTESTINE, UNSPECIFIED (11) Rectal bleeding Code(s): K62.5 - HEMORRHAGE OF ANUS AND RECTUM Assessment/Plan 1. Rectal bleed, underlying ischemic colitis 2. CAD s/p CABG, angina pectoris 3. Persistent AF with underlying PPM for sick sinus syndrome 4. Acute on CKD improving 5. Hypercholesterolemia 6. CVA/TIA 7. COPD 8. TAA and AAA PLAN: 1. Plan for outpatient colonoscopy to exclude malignancy 2. Renal function needs to be followed closely 3. Continue Carvedilol 12.5 bid 4. Continue Atorvastatin 20 qhs 5. Monitor CBC and transfuse PRBC as needed 6. TAA and AAA likely also needs surveillance 7. Complete abx course, compression therapy with GABE wraps Further plans are to follow. Importance of above issues emphasized to patient. Currently he is off Eliquis, but will need to resume once cleared by GI Follow up with Dr. Maxi Mello, cardiology at [facility] upon discharge
[2017-08-15] MEDS: TIOTROPIUM BROMIDE 18 MCG/INH (DEVICE W/ 5 CAPSULES) IH SCH (13:34)
--- NOTE | 2017-08-15 13:34 | PN ---
Progress Note, Physician History of Present Illness: events noted pt doing well - Current Medication List Current Medications: Active Medications Albuterol Sulfate (Ventolin 0.083% Nebulizer Soln -) 1 amp NEB Q6H PRN PRN Reason: SHORT OF BREATH/WHEEZING Last Admin: 08/13/17 11:14 Dose: 1 amp Atorvastatin Calcium (Lipitor -) 20 mg PO [facility] Last Admin: 08/14/17 22:18 Dose: 20 mg Bisacodyl (Dulcolax Suppository -) 10 mg [place] PRN PRN PRN Reason: CONSTIPATION Last Admin: 08/14/17 08:18 Dose: 10 mg Budesonide/Formoterol Fumarate (Symbicort 160/4.5mcg -) 1 puff IH DAILY [facility] Last Admin: 08/15/17 10:02 Dose: 1 puff Calcium Carbonate (Calcium Carb Oral Suspension -) 500 mg PO DAILY [facility] Last Admin: 08/15/17 10:00 Dose: 500 mg Carvedilol (Coreg -) 12.5 mg PO BID [facility] Last Admin: 08/15/17 10:00 Dose: 12.5 mg Fluticasone Propionate (Flonase -) 1 spray NS BID [facility] Last Admin: 08/15/17 10:02 Dose: 1 spray Levofloxacin (Levaquin 250 Mg Premixed Ivpb -) 250 mg in 50 mls @ 50 mls/hr IVPB DAILY [facility] Last Admin: 08/15/17 10:00 Dose: 50 mls/hr Metronidazole (Flagyl -) 250 mg PO TID [facility] Last Admin: 08/15/17 06:04 Dose: 250 mg Montelukast Sodium (Singulair -) 10 mg PO [facility] Last Admin: 08/14/17 22:18 Dose: 10 mg Xopenex Hfa Inhaler (Non-Formulary Med) 1 each IH Q6H PRN PRN Reason: SHORT OF BREATH/WHEEZING Last Admin: 08/11/17 23:06 Dose: 1 each Pancrelipase (Creon Dr 36,000 Units Capsule) 1 cap PO TIDCM [facility] Last Admin: 08/15/17 08:47 Dose: 1 cap Pantoprazole Sodium (Protonix -) 40 mg PO BID [facility] Last Admin: 08/15/17 10:00 Dose: 40 mg Tamsulosin HCl (Flomax -) 0.4 mg PO [facility] Last Admin: 08/14/17 22:18 Dose: 0.4 mg Tiotropium [place] (Spiriva -) 1 puff IH DAILY [facility] Last Admin: 08/14/17 10:09 Dose: 1 puff Trazodone HCl (Desyrel -) 100 mg PO HS [facility] Last Admin: 08/14/17 22:18 Dose: 100 mg Zolpidem Tartrate (Ambien -) 10 mg PO HS PRN PRN Reason: INSOMNIA Last Admin: 08/15/17 01:13 Dose: 10 mg - Objective Vital Signs: Vital Signs Temperature 98.7 F 08/15/17 11:51 Pulse Rate 62 08/15/17 11:51 Respiratory Rate 20 08/15/17 11:51 Blood Pressure 121/78 08/15/17 11:51 O2 Sat by Pulse Oximetry (%) 97 08/15/17 06:00 HENT: Yes: Atraumatic Neck: Yes: Supple Cardiovascular: Yes: Regular Rate and Rhythm Respiratory: Yes: CTA Bilaterally Gastrointestinal: Yes: Normal Bowel Sounds Extremities: Yes: WNL Neurological: Yes: Alert, Oriented Labs: CBC, BMP 08/15/17 07:30 08/15/17 07:30 INR, PTT INR 1.32 (0.82-1.09) H 08/12/17 07:45 Problem List - Problems (1) Rectal bleeding Assessment/Plan: resolved Code(s): K62.5 - HEMORRHAGE OF ANUS AND RECTUM (2) CHF (congestive heart failure) Assessment/Plan: stable no sob Code(s): I50.9 - HEART FAILURE, UNSPECIFIED Qualifiers: Congestive heart failure type: combined Congestive heart failure chronicity : acute on chronic Qualified Code(s): I50.43 - Acute on chronic combined systolic (congestive) and diastolic (congestive) heart failure (3) Acute diverticulitis Assessment/Plan: on iv abx id on board Code(s): K57.92 - DVTRCLI OF INTEST, PART UNSP, W/O PERF OR ABSCESS W/O BLEED (4) Anemia Assessment/Plan: monitor s/p prbc transfusion Code(s): D64.9 - ANEMIA, UNSPECIFIED Qualifiers: Anemia type: unspecified type Qualified Code(s): D64.9 - Anemia, unspecified (5) CKD (chronic kidney disease) Code(s): N18.9 - CHRONIC KIDNEY DISEASE, UNSPECIFIED Qualifiers: Chronic kidney disease stage: stage 4 (severe) Qualified Code(s): N18.4 - Chronic kidney disease, stage 4 (severe) (6) CHF Congestive heart failure Code(s): I50.9 - HEART FAILURE, UNSPECIFIED
--- NOTE | 2017-08-15 17:42 | PN ---
Progress Note, Physician History of Present Illness: Pt still with mild lower abd/LLQ discomfort. No BMs today. No new complaints. - Current Medication List Current Medications: Active Medications Albuterol Sulfate (Ventolin 0.083% Nebulizer Soln -) 1 amp NEB Q6H PRN PRN Reason: SHORT OF BREATH/WHEEZING Last Admin: 08/13/17 11:14 Dose: 1 amp Atorvastatin Calcium (Lipitor -) 20 mg PO HS [facility] Last Admin: 08/14/17 22:18 Dose: 20 mg Bisacodyl (Dulcolax Suppository -) 10 mg [place] PRN PRN PRN Reason: CONSTIPATION Last Admin: 08/14/17 08:18 Dose: 10 mg Budesonide/Formoterol Fumarate (Symbicort 160/4.5mcg -) 1 puff IH DAILY [facility] Last Admin: 08/15/17 10:02 Dose: 1 puff Calcium Carbonate (Calcium Carb Oral Suspension -) 500 mg PO DAILY [facility] Last Admin: 08/15/17 10:00 Dose: 500 mg Carvedilol (Coreg -) 12.5 mg PO BID [facility] Last Admin: 08/15/17 10:00 Dose: 12.5 mg Fluticasone Propionate (Flonase -) 1 spray NS BID [facility] Last Admin: 08/15/17 10:02 Dose: 1 spray Levofloxacin (Levaquin 250 Mg Premixed Ivpb -) 250 mg in 50 mls @ 50 mls/hr IVPB DAILY [facility] Last Admin: 08/15/17 10:00 Dose: 50 mls/hr Metronidazole (Flagyl -) 250 mg PO TID [facility] Last Admin: 08/15/17 14:37 Dose: 250 mg Montelukast Sodium (Singulair -) 10 mg PO HS [facility] Last Admin: 08/14/17 22:18 Dose: 10 mg Xopenex Hfa Inhaler (Non-Formulary Med) 1 each IH Q6H PRN PRN Reason: SHORT OF BREATH/WHEEZING Last Admin: 08/11/17 23:06 Dose: 1 each Pancrelipase (Creon Dr 36,000 Units Capsule) 1 cap PO TIDCM [facility] Last Admin: 08/15/17 17:26 Dose: 1 cap Pantoprazole Sodium (Protonix -) 40 mg PO BID [facility] Last Admin: 08/15/17 10:00 Dose: 40 mg Tamsulosin HCl (Flomax -) 0.4 mg PO HS [facility] Last Admin: 08/14/17 22:18 Dose: 0.4 mg Tiotropium [place] (Spiriva -) 1 puff IH DAILY [facility] Last Admin: 08/15/17 13:34 Dose: 1 puff Trazodone HCl (Desyrel -) 100 mg PO HS [facility] Last Admin: 08/14/17 22:18 Dose: 100 mg Zolpidem Tartrate (Ambien -) 10 mg PO HS PRN PRN Reason: INSOMNIA Last Admin: 08/15/17 01:13 Dose: 10 mg - Objective Vital Signs: Vital Signs Temperature 98.7 F 08/15/17 11:51 Pulse Rate 62 08/15/17 11:51 Respiratory Rate 20 08/15/17 14:00 Blood Pressure 121/78 08/15/17 11:51 O2 Sat by Pulse Oximetry (%) 95 08/15/17 14:00 Constitutional: Yes: No Distress, Calm Cardiovascular: Yes: Regular Rate and Rhythm Respiratory: Yes: CTA Bilaterally Gastrointestinal: Yes: Normal Bowel Sounds, Soft, Tenderness (LLQ/lower abd) Genitourinary: Yes: WNL Labs: CBC, BMP 08/15/17 07:30 08/15/17 07:30 INR, PTT INR 1.32 (0.82-1.09) H 08/12/17 07:45 Problem List - Problems (1) Acute diverticulitis Code(s): K57.92 - DVTRCLI OF INTEST, PART UNSP, W/O PERF OR ABSCESS W/O BLEED (2) CKD (chronic kidney disease) Code(s): N18.9 - CHRONIC KIDNEY DISEASE, UNSPECIFIED Qualifiers: Chronic kidney disease stage: stage 4 (severe) Qualified Code(s): N18.4 - Chronic kidney disease, stage 4 (severe) (3) Rectal bleeding Code(s): K62.5 - HEMORRHAGE OF ANUS AND RECTUM (4) CHF (congestive heart failure) Code(s): I50.9 - HEART FAILURE, UNSPECIFIED Qualifiers: Congestive heart failure type: combined Congestive heart failure chronicity : acute on chronic Qualified Code(s): I50.43 - Acute on chronic combined systolic (congestive) and diastolic (congestive) heart failure Assessment/Plan 71 y.o. male with hx of CAD s/p CABG, Afib on Eliquis, AV replacement, CKD, COPD , CHF presenting with bloody/dark stools and abdominal pain. Acute sigmoid diverticulitis GI bleed CKD Leukocytosis - improved GI bleed Anemia - continue levaquin and flagyl IV - monitor for resolution of pain - appears stable
[2017-08-15] MEDS ORDERED: traZODone HCL 50 MG TABLET (FP) ONE (22:26)
[2017-08-15] MEDS: ATORVASTATIN CA 20 MG TABLET (FP) PO SCH (22:42)
[2017-08-15] MEDS: MONTELUKAST NA 10 MG TABLET PO SCH (22:43)
[2017-08-15] MEDS: TAMSULOSIN HCL 0.4 MG CAP.ER.24H (FP) PO SCH (22:43)
[2017-08-15] MEDS: traZODone HCL 100 MG TABLET (FP) PO SCH (22:43)
--- NOTE | 2017-08-15 23:21 | PN ---
Progress Note (short form) - Note Progress Note: 1. CKD 2. ALAN 3. anemia 4. GI bleed 5. BPH 6. a-fib 7. aortic aneurysm 8. COPD 9. insomnia Current Medications Atorvastatin Calcium (Lipitor -) 20 mg PO HS [facility] [place] Last Admin: 08/15/17 22:42 Dose: 20 mg Bisacodyl (Dulcolax Suppository -) 10 mg [place] PRN PRN PRN Reason: CONSTIPATION Last Admin: 08/14/17 08:18 Dose: 10 mg Budesonide/Formoterol Fumarate (Symbicort 160/4.5mcg -) 1 puff IH DAILY [facility] Last Admin: 08/15/17 10:02 Dose: 1 puff Calcium Carbonate (Calcium Carb Oral Suspension -) 500 mg PO DAILY [facility] Last Admin: 08/15/17 10:00 Dose: 500 mg Carvedilol (Coreg -) 12.5 mg PO BID [facility] Last Admin: 08/15/17 22:45 Dose: 12.5 mg Fluticasone Propionate (Flonase -) 1 spray NS BID [facility] Last Admin: 08/15/17 22:46 Dose: 1 spray Levofloxacin (Levaquin 250 Mg Premixed Ivpb -) 250 mg in 50 mls @ 50 mls/hr IVPB DAILY [facility] Last Admin: 08/15/17 10:00 Dose: 50 mls/hr Metronidazole (Flagyl -) 250 mg PO TID [facility] [place] Last Admin: 08/15/17 22:43 Dose: 250 mg Montelukast Sodium (Singulair -) 10 mg PO HS [facility] Last Admin: 08/15/17 22:43 Dose: 10 mg Xopenex Hfa Inhaler (Non-Formulary Med) 1 each IH Q6H PRN PRN Reason: SHORT OF BREATH/WHEEZING Last Admin: 08/11/17 23:06 Dose: 1 each Pancrelipase (Creon Dr 36,000 Units Capsule) 1 cap PO TIDCM [facility] Last Admin: 08/15/17 17:26 Dose: 1 cap Pantoprazole Sodium (Protonix -) 40 mg PO BID [facility] Last Admin: 08/15/17 22:42 Dose: 40 mg Tamsulosin HCl (Flomax -) 0.4 mg PO HS [facility] Last Admin: 08/15/17 22:43 Dose: 0.4 mg Tiotropium [place] (Spiriva -) 1 puff IH DAILY [facility] Last Admin: 08/15/17 13:34 Dose: 1 puff Trazodone HCl (Desyrel -) 100 mg PO HS [facility] Last Admin: 08/15/17 22:43 Dose: 100 mg Zolpidem Tartrate (Ambien -) 10 mg PO HS PRN PRN Reason: INSOMNIA Last Admin: 08/15/17 01:13 Dose: 10 mg Last Vital Signs Temp Pulse Resp BP Pulse Ox 97.0 F L 84 20 125/70 95 08/15/17 21:47 08/15/17 21:47 08/15/17 21:47 08/15/17 21:47 08/15/17 14:00 CBC, BMP 08/15/17 07:30 08/15/17 07:30 Plan - renal function is improving - GI follow up - will give dose of lasix - repeat labs in am - cont current meds - arb is on hold for now - will follow pt closely
[2017-08-16] MEDS: metroNIDAZOLE 250 MG TABLET PO SCH ×3 (06:01→21:15)
[2017-08-16] MEDS ORDERED: PT OWN MED DRAWER 7, Y5N ONE ×3 (09:16→20:55)
[2017-08-16] MEDS: PANTOPRAZOLE 40 MG TABLET (FP) PO SCH ×2 (09:17→21:15)
[2017-08-16] MEDS: CARVEDILOL 12.5 MG TABLET (FP) PO SCH ×2 (09:17→21:16)
[2017-08-16] MEDS: CALCIUM CARBONATE SUSPENSION - 500 MG/5 ML ML PO SCH (09:18)
[2017-08-16] MEDS: LIPASE/PROTEASE/AMYLASE 36,000 UNIT CAPSULE PO SCH ×3 (09:19→17:26)
[2017-08-16] MEDS: TIOTROPIUM BROMIDE 18 MCG/INH (DEVICE W/ 5 CAPSULES) IH SCH (09:21)
[2017-08-16] MEDS: BUDESONIDE/FORMETEROL FUMARATE 160/4.5 mcg INHALER IH SCH (09:23)
[2017-08-16] MEDS: FLUTICASONE PROP 0.05% 16 GM NASAL SPRAY NS SCH ×2 (09:24→21:16)
[2017-08-16] MEDS: LEVOFLOXACIN 250 MG IVPB 250 MG/50 ML MG IVPB SCH (09:27)
[2017-08-16 11:10] LABS: HEMATOCRIT 30.4 % (35.4-49); HEMOGLOBIN 9.9 GM/dL (11.7-16.9); MCH 29.4 pg (25.7-33.7); MCHC 32.7 g/dl (32.0-35.9); MEAN CELL VOLUME 90.1 fl (80-96); PLATELET COUNT 197 K/MM3 (134-434); RBC 3.38 M/mm3 (4.00-5.60); RDW 15.7 % (11.9-15.9); WHITE BLOOD COUNT 9.4 K/mm3 (4.0-10.0)
[2017-08-16 11:33] LABS: ALBUMIN 2.4 g/dl (3.4-5.0); ALK PHOS 59 U/L (45-117); ANION GAP 13 (8-16); BILIRUBIN,TOTAL 0.3 mg/dL (0.2-1.0); BLOOD UREA NITROGEN 91 mg/dL (7-18); CALCIUM 8.9 mg/dL (8.5-10.1); CHLORIDE 105 mmol/L (98-107); CO2 22 mmol/L (21-32); CREATININE 4.7 mg/dL (0.7-1.3); GLUCOSE,RANDOM 112 mg/dL (74-106); POTASSIUM 3.9 mmol/L (3.5-5.1); SGOT/AST 11 U/L (15-37); SGPT/ALT 15 U/L (12-78); SODIUM 140 mmol/L (136-145); TOT PROT 5.1 g/dl (6.4-8.2)
--- NOTE | 2017-08-16 18:52 | PN ---
Progress Note, Physician History of Present Illness: feeling good - Current Medication List Current Medications: Active Medications Atorvastatin Calcium (Lipitor -) 20 mg PO HS [facility] Last Admin: 08/15/17 22:42 Dose: 20 mg Bisacodyl (Dulcolax Suppository -) 10 mg [place] PRN PRN PRN Reason: CONSTIPATION Last Admin: 08/14/17 08:18 Dose: 10 mg Budesonide/Formoterol Fumarate (Symbicort 160/4.5mcg -) 1 puff IH DAILY [facility] Last Admin: 08/16/17 09:23 Dose: 1 puff Calcium Carbonate (Calcium Carb Oral Suspension -) 500 mg PO DAILY [facility] Last Admin: 08/16/17 09:18 Dose: 500 mg Carvedilol (Coreg -) 12.5 mg PO BID [facility] Last Admin: 08/16/17 09:17 Dose: 12.5 mg Fluticasone Propionate (Flonase -) 1 spray NS BID [facility] Last Admin: 08/16/17 09:24 Dose: 1 spray Levofloxacin (Levaquin -) 250 mg PO DAILY [facility] Metronidazole (Flagyl -) 500 mg PO TID [facility] Montelukast Sodium (Singulair -) 10 mg PO HS [facility] Last Admin: 08/15/17 22:43 Dose: 10 mg Xopenex Hfa Inhaler (Non-Formulary Med) 1 each IH Q6H PRN PRN Reason: SHORT OF BREATH/WHEEZING Last Admin: 08/11/17 23:06 Dose: 1 each Pancrelipase (Creon Dr 36,000 Units Capsule) 1 cap PO TIDCM [facility] Last Admin: 08/16/17 17:26 Dose: 1 cap Pantoprazole Sodium (Protonix -) 40 mg PO BID [facility] Last Admin: 08/16/17 09:17 Dose: 40 mg Tamsulosin HCl (Flomax -) 0.4 mg PO HS [facility] Last Admin: 08/15/17 22:43 Dose: 0.4 mg Tiotropium [place] (Spiriva -) 1 puff IH DAILY [facility] Last Admin: 08/16/17 09:21 Dose: 1 puff Trazodone HCl (Desyrel -) 100 mg PO HS [facility] Last Admin: 08/15/17 22:43 Dose: 100 mg Zolpidem Tartrate (Ambien -) 10 mg PO HS PRN PRN Reason: INSOMNIA Last Admin: 12/09/17 01:13 Dose: 10 mg - Objective Vital Signs: Vital Signs Temperature 98.1 F 08/16/17 14:50 Pulse Rate 96 H 08/16/17 14:50 Respiratory Rate 18 08/16/17 14:50 Blood Pressure 127/86 08/16/17 14:50 O2 Sat by Pulse Oximetry (%) 96 08/15/17 22:00 Constitutional: Yes: No Distress HENT: Yes: Atraumatic Neck: Yes: Supple Cardiovascular: Yes: Regular Rate and Rhythm Respiratory: Yes: CTA Bilaterally Gastrointestinal: Yes: Normal Bowel Sounds Extremities: Yes: WNL Neurological: Yes: Alert, Oriented Labs: CBC, BMP 08/16/17 11:00 08/16/17 11:00 INR, PTT INR 1.32 (0.82-1.09) H 08/12/17 07:45 Problem List - Problems (1) Rectal bleeding Assessment/Plan: resolved Code(s): K62.5 - HEMORRHAGE OF ANUS AND RECTUM (2) CHF (congestive heart failure) Assessment/Plan: stable no sob Code(s): I50.9 - HEART FAILURE, UNSPECIFIED Qualifiers: Congestive heart failure type: combined Congestive heart failure chronicity : acute on chronic Qualified Code(s): I50.43 - Acute on chronic combined systolic (congestive) and diastolic (congestive) heart failure (3) Acute diverticulitis Assessment/Plan: on iv abx id on board Code(s): K57.92 - DVTRCLI OF INTEST, PART UNSP, W/O PERF OR ABSCESS W/O BLEED (4) Anemia Assessment/Plan: monitor s/p prbc transfusion Code(s): D64.9 - ANEMIA, UNSPECIFIED Qualifiers: Anemia type: unspecified type Qualified Code(s): D64.9 - Anemia, unspecified (5) CKD (chronic kidney disease) Assessment/Plan: monitor renal on board Code(s): N18.9 - CHRONIC KIDNEY DISEASE, UNSPECIFIED Qualifiers: Chronic kidney disease stage: stage 4 (severe) Qualified Code(s): N18.4 - Chronic kidney disease, stage 4 (severe) (6) CHF Congestive heart failure Code(s): I50.9 - HEART FAILURE, UNSPECIFIED Assessment/Plan NEED TO KNOW FROM CARDIOLOGY ABOUT ELIQUIS??
--- NOTE | 2017-08-16 19:17 | PN ---
Progress Note (short form) - Note Progress Note: 1. CKD 2. ALAN 3. anemia 4. GI bleed 5. BPH 6. a-fib 7. aortic aneurysm 8. COPD 9. insomnia Current Medications Atorvastatin Calcium (Lipitor -) 20 mg PO HS [facility] Last Admin: 08/15/17 22:42 Dose: 20 mg Bisacodyl (Dulcolax Suppository -) 10 mg [place] PRN PRN PRN Reason: CONSTIPATION Last Admin: 08/14/17 08:18 Dose: 10 mg Budesonide/Formoterol Fumarate (Symbicort 160/4.5mcg -) 1 puff IH DAILY [facility] Last Admin: 08/16/17 09:23 Dose: 1 puff Calcium Carbonate (Calcium Carb Oral Suspension -) 500 mg PO DAILY [facility] Last Admin: 08/16/17 09:18 Dose: 500 mg Carvedilol (Coreg -) 12.5 mg PO BID [facility] Last Admin: 08/16/17 09:17 Dose: 12.5 mg Fluticasone Propionate (Flonase -) 1 spray NS BID [facility] Last Admin: 08/16/17 09:24 Dose: 1 spray Levofloxacin (Levaquin -) 250 mg PO DAILY [facility] Metronidazole (Flagyl -) 500 mg PO TID [facility] Montelukast Sodium (Singulair -) 10 mg PO [facility] Last Admin: 08/15/17 22:43 Dose: 10 mg Xopenex Hfa Inhaler (Non-Formulary Med) 1 each IH Q6H PRN PRN Reason: SHORT OF BREATH/WHEEZING Last Admin: 08/11/17 23:06 Dose: 1 each Pancrelipase (Creon Dr 36,000 Units Capsule) 1 cap PO TIDCM [facility] Last Admin: 08/16/17 17:26 Dose: 1 cap Pantoprazole Sodium (Protonix -) 40 mg PO BID [facility] Last Admin: 08/16/17 09:17 Dose: 40 mg Tamsulosin HCl (Flomax -) 0.4 mg PO HS [facility] Last Admin: 08/15/17 22:43 Dose: 0.4 mg Tiotropium [place] (Spiriva -) 1 puff IH DAILY [facility] Last Admin: 08/16/17 09:21 Dose: 1 puff Trazodone HCl (Desyrel -) 100 mg PO [facility] Last Admin: 08/15/17 22:43 Dose: 100 mg Zolpidem Tartrate (Ambien -) 10 mg PO HS PRN PRN Reason: INSOMNIA Last Admin: 08/15/17 01:13 Dose: 10 mg Last Vital Signs Temp Pulse Resp BP Pulse Ox 98.1 F 96 H 18 127/86 96 08/16/17 14:50 08/16/17 14:50 08/16/17 14:50 08/16/17 14:50 08/15/17 22:00 lungs clear heart rsr abd distended ext no edema CBC, BMP 08/16/17 11:00 08/16/17 11:00 IMP- alan on ckd increased azotemia probably fluid deficit Plan - encourage more oral fluids if no better, consider IVF
[2017-08-16] MEDS ORDERED: traZODone HCL 50 MG TABLET (FP) ONE (20:54)
[2017-08-16] MEDS: ZOLPIDEM TARTRATE 5 MG TABLET PO PRN (21:14)
[2017-08-16] MEDS: traZODone HCL 100 MG TABLET (FP) PO SCH (21:15)
[2017-08-16] MEDS: TAMSULOSIN HCL 0.4 MG CAP.ER.24H (FP) PO SCH (21:15)
[2017-08-16] MEDS: MONTELUKAST NA 10 MG TABLET PO SCH (21:15)
[2017-08-16] MEDS: ATORVASTATIN CA 20 MG TABLET (FP) PO SCH (21:16)
[2017-08-16] MEDS: BISACODYL 10 MG SUPP.RECT PR PRN (21:50)
[2017-08-17] MEDS: metroNIDAZOLE 250 MG TABLET PO SCH (06:19)
[2017-08-17] MEDS: LIPASE/PROTEASE/AMYLASE 36,000 UNIT CAPSULE PO SCH ×3 (09:39→17:29)
[2017-08-17] MEDS ORDERED: SODIUM CHLORIDE 1,000 ML IV SCH (09:45)
[2017-08-17] MEDS ORDERED: LEVOFLOXACIN 250 MG TABLET (FP) PO SCH (10:00)
[2017-08-17] MEDS ORDERED: PT OWN MED DRAWER 7, Y5N ONE ×2 (10:38→21:03)
[2017-08-17] MEDS: CARVEDILOL 12.5 MG TABLET (FP) PO SCH ×2 (10:40→21:06)
[2017-08-17] MEDS: LEVOFLOXACIN 250 MG IVPB 250 MG/50 ML MG IVPB SCH (10:40)
[2017-08-17] MEDS: TIOTROPIUM BROMIDE 18 MCG/INH (DEVICE W/ 5 CAPSULES) IH SCH (10:40)
[2017-08-17] MEDS: FLUTICASONE PROP 0.05% 16 GM NASAL SPRAY NS SCH ×2 (10:40→21:07)
[2017-08-17] MEDS: PANTOPRAZOLE 40 MG TABLET (FP) PO SCH ×2 (10:40→21:05)
[2017-08-17] MEDS: CALCIUM CARBONATE SUSPENSION - 500 MG/5 ML ML PO SCH (10:41)
[2017-08-17 10:42] LABS: BASO % 0.3 % (0-2.0); EOS % 1.3 % (0-4.5); HEMATOCRIT 31.5 % (35.4-49); HEMOGLOBIN 10.5 GM/dL (11.7-16.9); LYMPH % 3.4 % (8-40); MCH 29.5 pg (25.7-33.7); MCHC 33.2 g/dl (32.0-35.9); MEAN PLT VOLUME 7.6 fl (7.5-11.1); MONO % 6.9 % (3.8-10.2); NEUT % 88.1 % (42.8-82.8); PLATELET COUNT 216 K/MM3 (134-434); RBC 3.54 M/mm3 (4.00-5.60); RDW 15.4 % (11.9-15.9); WHITE BLOOD COUNT 9.8 K/mm3 (4.0-10.0)
[2017-08-17] MEDS: ONDANSETRON 4 MG/2 ML VIAL IVPUSH PRN ×3 (10:53→23:16)
[2017-08-17 11:14] LABS: ANION GAP 9 (8-16); BLOOD UREA NITROGEN 83 mg/dL (7-18); CALCIUM 8.8 mg/dL (8.5-10.1); CHLORIDE 102 mmol/L (98-107); CO2 25 mmol/L (21-32); CREATININE 4.7 mg/dL (0.7-1.3); GLUCOSE,RANDOM 117 mg/dL (74-106); POTASSIUM 4.1 mmol/L (3.5-5.1); SODIUM 136 mmol/L (136-145)
--- NOTE | 2017-08-17 11:52 | PN ---
Progress Note, Physician Chief Complaint: Not in distress History of Present Illness: Patient was seen and examined. Awake and alert. Chart was reviewed Denies chest pain, SOB or palpitation PRBC transfusion planned - Current Medication List Current Medications: Active Medications Atorvastatin Calcium (Lipitor -) 20 mg PO HS [facility] Last Admin: 08/16/17 21:16 Dose: 20 mg Bisacodyl (Dulcolax Suppository -) 10 mg [place] PRN PRN PRN Reason: CONSTIPATION Last Admin: 08/16/17 21:50 Dose: 10 mg Budesonide/Formoterol Fumarate (Symbicort 160/4.5mcg -) 1 puff IH DAILY [facility] Last Admin: 08/16/17 09:23 Dose: 1 puff Calcium Carbonate (Calcium Carb Oral Suspension -) 500 mg PO DAILY [facility] Last Admin: 08/17/17 10:41 Dose: 500 mg Carvedilol (Coreg -) 12.5 mg PO BID [facility] Last Admin: 08/17/17 10:40 Dose: 12.5 mg Fluticasone Propionate (Flonase -) 1 spray NS BID [facility] Last Admin: 08/17/17 10:40 Dose: 1 spray Hydromorphone HCl (Dilaudid Injection -) 1 mg IVPB Q4H PRN PRN Reason: PAIN Levofloxacin (Levaquin 250 Mg Premixed Ivpb -) 250 mg in 50 mls @ 50 mls/hr IVPB DAILY [facility] Last Admin: 08/17/17 10:40 Dose: 50 mls/hr Sodium Chloride (Normal Saline -) 1,000 mls @ 75 mls/hr IV ASDIR [facility] Last Admin: 08/17/17 10:41 Dose: 75 mls/hr Montelukast Sodium (Singulair -) 10 mg PO [facility] Last Admin: 08/16/17 21:15 Dose: 10 mg Xopenex Hfa Inhaler (Non-Formulary Med) 1 each IH Q6H PRN PRN Reason: SHORT OF BREATH/WHEEZING Last Admin: 08/11/17 23:06 Dose: 1 each Ondansetron HCl (Zofran Injection) 4 mg IVPUSH Q4H PRN PRN Reason: NAUSEA AND/OR VOMITING Last Admin: 08/17/17 10:53 Dose: 4 mg Pancrelipase (Creon Dr 36,000 Units Capsule) 1 cap PO TIDCM [facility] Last Admin: 08/17/17 09:39 Dose: Not Given Pantoprazole Sodium (Protonix -) 40 mg PO BID [facility] Last Admin: 08/17/17 10:40 Dose: 40 mg Tamsulosin HCl (Flomax -) 0.4 mg PO [facility] Last Admin: 08/16/17 21:15 Dose: 0.4 mg Tiotropium [place] (Spiriva -) 1 puff IH DAILY [facility] Last Admin: 08/17/17 10:40 Dose: 1 puff Trazodone HCl (Desyrel -) 100 mg PO [facility] Last Admin: 08/16/17 21:15 Dose: 100 mg - Objective Vital Signs: Vital Signs Temperature 97.6 F 08/17/17 06:27 Pulse Rate 60 08/17/17 06:27 Respiratory Rate 20 08/17/17 06:27 Blood Pressure 135/68 08/17/17 06:27 O2 Sat by Pulse Oximetry (%) 96 08/15/17 22:00 Cardiovascular: Yes: Regular Rate and Rhythm, Murmur (Soft SM), S1, S2 Respiratory: Yes: CTA Bilaterally Gastrointestinal: Yes: Normal Bowel Sounds, Distention, Tenderness (Mild tenderness) Edema: Yes Edema: LLE: 1+, RLE: 1+ Labs: CBC, BMP 08/17/17 10:34 08/17/17 10:34 - ....Imaging Cat Scan: Report Reviewed (Abd CT improving diverticulitis) Problem List - Problems (1) CVD (cerebrovascular disease) Code(s): I67.9 - CEREBROVASCULAR DISEASE, UNSPECIFIED (2) Hypercholesterolemia Code(s): E78.00 - PURE HYPERCHOLESTEROLEMIA, UNSPECIFIED (3) Sick sinus syndrome Code(s): I49.5 - SICK SINUS SYNDROME (4) Presence of permanent cardiac pacemaker Code(s): Z95.0 - PRESENCE OF CARDIAC PACEMAKER (5) Hx of CABG Code(s): Z95.1 - PRESENCE OF AORTOCORONARY BYPASS GRAFT (6) Abdominal pain Code(s): R10.9 - UNSPECIFIED ABDOMINAL PAIN Qualifiers: Abdominal location: unspecified location Qualified Code(s): R10.9 - Unspecified abdominal pain (7) Acute diverticulitis Code(s): K57.92 - DVTRCLI OF INTEST, PART UNSP, W/O PERF OR ABSCESS W/O BLEED (8) Anemia Code(s): D64.9 - ANEMIA, UNSPECIFIED Qualifiers: Anemia type: unspecified type Qualified Code(s): D64.9 - Anemia, unspecified (9) CKD (chronic kidney disease) Code(s): N18.9 - CHRONIC KIDNEY DISEASE, UNSPECIFIED Qualifiers: Chronic kidney disease stage: stage 4 (severe) Qualified Code(s): N18.4 - Chronic kidney disease, stage 4 (severe) (10) Rectal bleeding Code(s): K62.5 - HEMORRHAGE OF ANUS AND RECTUM (11) CHF (congestive heart failure) Code(s): I50.9 - HEART FAILURE, UNSPECIFIED Qualifiers: Congestive heart failure type: combined Congestive heart failure chronicity : acute on chronic Qualified Code(s): I50.43 - Acute on chronic combined systolic (congestive) and diastolic (congestive) heart failure Assessment/Plan 1. Rectal bleed, underlying diverticulitis - improving 2. CAD s/p CABG, angina pectoris 3. Persistent AF with underlying PPM for sick sinus syndrome 4. Acute on CKD with worsened creatinine 5. Hypercholesterolemia 6. CVA/TIA 7. COPD 8. TAA and AAA PLAN: 1. GI follow up 2. Renal input noted 3. Continue Carvedilol as tolerated 4. Continue Atorvastatin 5. Monitor CBC and transfuse PRBC as needed 6. TAA and AAA likely also needs surveillance probably not ready for intervention Further plans are to follow. Importance of above issues emphasized to patient. Currently he is off Eliquis, but will need to resume once cleared by GI Follow up with Dr. Maxi Mello, cardiology at [facility] upon discharge Guarded Klever Marti MD
--- NOTE | 2017-08-17 12:22 | PN ---
Progress Note, Physician History of Present Illness: Pt seen and examined at bedside. He is awake and alert. He denies shortness of breath. - Current Medication List Current Medications: Active Medications Atorvastatin Calcium (Lipitor -) 20 mg PO HS [facility] Last Admin: 08/16/17 21:16 Dose: 20 mg Bisacodyl (Dulcolax Suppository -) 10 mg [place] PRN PRN PRN Reason: CONSTIPATION Last Admin: 08/16/17 21:50 Dose: 10 mg Budesonide/Formoterol Fumarate (Symbicort 160/4.5mcg -) 1 puff IH DAILY [facility] Last Admin: 08/16/17 09:23 Dose: 1 puff Calcium Carbonate (Calcium Carb Oral Suspension -) 500 mg PO DAILY [facility] Last Admin: 08/17/17 10:41 Dose: 500 mg Carvedilol (Coreg -) 12.5 mg PO BID [facility] Last Admin: 08/17/17 10:40 Dose: 12.5 mg Fluticasone Propionate (Flonase -) 1 spray NS BID [facility] Last Admin: 08/17/17 10:40 Dose: 1 spray Hydromorphone HCl (Dilaudid Injection -) 1 mg IVPB Q4H PRN PRN Reason: PAIN Levofloxacin (Levaquin 250 Mg Premixed Ivpb -) 250 mg in 50 mls @ 50 mls/hr IVPB DAILY [facility] Last Admin: 08/17/17 10:40 Dose: 50 mls/hr Sodium Chloride (Normal Saline -) 1,000 mls @ 75 mls/hr IV ASDIR [facility] Last Admin: 08/17/17 10:41 Dose: 75 mls/hr Montelukast Sodium (Singulair -) 10 mg PO HS [facility] Last Admin: 08/16/17 21:15 Dose: 10 mg Xopenex Hfa Inhaler (Non-Formulary Med) 1 each IH Q6H PRN PRN Reason: SHORT OF BREATH/WHEEZING Last Admin: 08/11/17 23:06 Dose: 1 each Ondansetron HCl (Zofran Injection) 4 mg IVPUSH Q4H PRN PRN Reason: NAUSEA AND/OR VOMITING Last Admin: 08/17/17 10:53 Dose: 4 mg Pancrelipase (Creon Dr 36,000 Units Capsule) 1 cap PO TIDCM [facility] Last Admin: 08/17/17 09:39 Dose: Not Given Pantoprazole Sodium (Protonix -) 40 mg PO BID [facility] Last Admin: 08/17/17 10:40 Dose: 40 mg Tamsulosin HCl (Flomax -) 0.4 mg PO [facility] Last Admin: 08/16/17 21:15 Dose: 0.4 mg Tiotropium [place] (Spiriva -) 1 puff IH DAILY [facility] Last Admin: 08/17/17 10:40 Dose: 1 puff Trazodone HCl (Desyrel -) 100 mg PO [facility] Last Admin: 08/16/17 21:15 Dose: 100 mg - Objective Vital Signs: Vital Signs Temperature 97.6 F 08/17/17 06:27 Pulse Rate 60 08/17/17 06:27 Respiratory Rate 20 08/17/17 06:27 Blood Pressure 135/68 08/17/17 06:27 O2 Sat by Pulse Oximetry (%) 96 08/15/17 22:00 Constitutional: Yes: Anxious Eyes: Yes: Conjunctiva Clear HENT: Yes: Atraumatic Cardiovascular: Yes: S1, S2 Respiratory: Yes: CTA Bilaterally Gastrointestinal: Yes: Normal Bowel Sounds, Soft Genitourinary: Yes: WNL Musculoskeletal: Yes: WNL Edema: Yes Edema: LLE: 1+, RLE: 1+ Neurological: Yes: Oriented Psychiatric: Yes: Oriented, Agitated Labs: CBC, BMP 08/17/17 10:34 08/17/17 10:34 INR, PTT INR 1.32 (0.82-1.09) H 08/12/17 07:45 Problem List - Problems (1) CKD (chronic kidney disease) Code(s): N18.9 - CHRONIC KIDNEY DISEASE, UNSPECIFIED Qualifiers: Chronic kidney disease stage: stage 4 (severe) Qualified Code(s): N18.4 - Chronic kidney disease, stage 4 (severe) (2) Anemia Code(s): D64.9 - ANEMIA, UNSPECIFIED Qualifiers: Anemia type: unspecified type Qualified Code(s): D64.9 - Anemia, unspecified (3) Abdominal pain Code(s): R10.9 - UNSPECIFIED ABDOMINAL PAIN Qualifiers: Abdominal location: unspecified location Qualified Code(s): R10.9 - Unspecified abdominal pain (4) Rectal bleeding Code(s): K62.5 - HEMORRHAGE OF ANUS AND RECTUM (5) Acute exacerbation of COPD with asthma Code(s): J44.1 - CHRONIC OBSTRUCTIVE PULMONARY DISEASE W (ACUTE) EXACERBATION; J45.901 - UNSPECIFIED ASTHMA WITH (ACUTE) EXACERBATION (6) CHF (congestive heart failure) Code(s): I50.9 - HEART FAILURE, UNSPECIFIED Qualifiers: Congestive heart failure type: combined Congestive heart failure chronicity : acute on chronic Qualified Code(s): I50.43 - Acute on chronic combined systolic (congestive) and diastolic (congestive) heart failure Assessment/Plan Current Medications Generic Name Dose Route Start Last Admin Trade Name Freq PRN Reason Stop Dose Admin Atorvastatin Calcium 20 mg 08/10/17 20:15 08/16/17 21:16 Lipitor - PO 20 mg HS [facility] Administration Bisacodyl 10 mg 08/13/17 23:06 08/16/17 21:50 Dulcolax Suppository - [place] 10 mg PRN PRN Administration CONSTIPATION Budesonide/Formoterol Fumarate 1 puff 08/11/17 10:00 08/16/17 09:23 Symbicort 160/4.5mcg - IH 1 puff DAILY [facility] Administration Calcium Carbonate 500 mg 08/11/17 16:30 08/17/17 10:41 Calcium Carb Oral Suspension - PO 500 mg DAILY [facility] Administration Carvedilol 12.5 mg 08/12/17 22:00 08/17/17 10:40 Coreg - PO 12.5 mg BID [facility] Administration Fluticasone Propionate 1 spray 08/10/17 22:00 08/17/17 10:40 Flonase - NS 1 spray BID [facility] Administration Hydromorphone HCl 1 mg 08/17/17 09:38 Dilaudid Injection - IVPB Q4H PRN PAIN Levofloxacin 250 mg in 50 mls @ 50 mls/hr 08/17/17 10:00 08/17/17 10:40 Levaquin 250 Mg Premixed Ivpb - IVPB 50 mls/hr DAILY [facility] Administration Sodium Chloride 1,000 mls @ 75 mls/hr 08/17/17 09:45 08/17/17 10:41 Normal Saline - IV 75 mls/hr ASDIR [facility] Administration Montelukast Sodium 10 mg 08/10/17 20:15 08/16/17 21:15 Singulair - PO 10 mg HS [facility] Administration Xopenex Hfa Inhaler 1 each 08/10/17 23:14 08/11/17 23:06 Non-Formulary Med IH 1 each Q6H PRN Administration SHORT OF BREATH/WHEEZING Ondansetron HCl 4 mg 08/17/17 09:36 08/17/17 10:53 Zofran Injection IVPUSH 4 mg Q4H PRN Administration NAUSEA AND/OR VOMITING Pancrelipase 1 cap 08/14/17 08:00 08/17/17 09:39 [place] 36,000 Units Capsule PO Not Given TIDCM [facility] Pantoprazole Sodium 40 mg 08/10/17 23:15 08/17/17 10:40 Protonix - PO 40 mg BID [facility] Administration Tamsulosin HCl 0.4 mg 08/10/17 20:15 08/16/17 21:15 Flomax - PO 0.4 mg HS [facility] Administration Tiotropium [place] 1 puff 08/11/17 10:00 08/17/17 10:40 Spiriva - IH 1 puff DAILY [facility] Administration Trazodone HCl 100 mg 08/10/17 22:00 08/16/17 21:15 Desyrel - PO 100 mg HS [facility] Administration Impression 1. CKD 2. ALAN 3. anemia 4. GI bleed 5. BPH 6. a-fib 7. aortic aneurysm 8. COPD 9. insomnia Plan - stop fluids - repeat labs in am - lasix as needed - GI follow up - arb is on hold, will keep on hold for now - no indication for HD at this point - renal function is stabilizing - will follow pt closely Dr Ortega
[2017-08-17] MEDS: FUROSEMIDE 40 MG TABLET (FP) PO SCH (13:56)
[2017-08-17] MEDS: BUDESONIDE/FORMETEROL FUMARATE 160/4.5 mcg INHALER IH SCH (14:08)
[2017-08-17] MEDS: HYDROmorphone HCL CARPU-JECT 2 MG/1 ML DISP.SYRIN IVPB PRN ×2 (16:13→19:47)
--- NOTE | 2017-08-17 17:03 | PN ---
Progress Note, Physician History of Present Illness: Events noted. Has been having green vomitus. No BM in past few days. Has had abd pain. - Current Medication List Current Medications: Active Medications Atorvastatin Calcium (Lipitor -) 20 mg PO HS [facility] Last Admin: 08/16/17 21:16 Dose: 20 mg Bisacodyl (Dulcolax Suppository -) 10 mg [place] PRN PRN PRN Reason: CONSTIPATION Last Admin: 08/16/17 21:50 Dose: 10 mg Budesonide/Formoterol Fumarate (Symbicort 160/4.5mcg -) 1 puff IH DAILY [facility] Last Admin: 08/17/17 14:08 Dose: Not Given Calcium Carbonate (Calcium Carb Oral Suspension -) 500 mg PO DAILY [facility] Last Admin: 08/17/17 10:41 Dose: 500 mg Carvedilol (Coreg -) 12.5 mg PO BID [facility] Last Admin: 08/17/17 10:40 Dose: 12.5 mg Fluticasone Propionate (Flonase -) 1 spray NS BID [facility] Last Admin: 08/17/17 10:40 Dose: 1 spray Furosemide (Lasix -) 40 mg PO DAILY [facility] Last Admin: 08/17/17 13:56 Dose: 40 mg Hydromorphone HCl (Dilaudid Injection -) 1 mg IVPB Q4H PRN PRN Reason: PAIN Last Admin: 08/17/17 16:13 Dose: 1 mg Levofloxacin (Levaquin 250 Mg Premixed Ivpb -) 250 mg in 50 mls @ 50 mls/hr IVPB DAILY [facility] Last Admin: 08/17/17 10:40 Dose: 50 mls/hr Metronidazole (Flagyl 500mg Premixed Ivpb -) 500 mg in 100 mls @ 100 mls/hr IVPB Q8H-IV [facility] Montelukast Sodium (Singulair -) 10 mg PO HS [facility] Last Admin: 08/16/17 21:15 Dose: 10 mg Xopenex Hfa Inhaler (Non-Formulary Med) 1 each IH Q6H PRN PRN Reason: SHORT OF BREATH/WHEEZING Last Admin: 08/11/17 23:06 Dose: 1 each Ondansetron HCl (Zofran Injection) 4 mg IVPUSH Q4H PRN PRN Reason: NAUSEA AND/OR VOMITING Last Admin: 08/17/17 16:04 Dose: 4 mg Pancrelipase (Creon Dr 36,000 Units Capsule) 1 cap PO TIDCM [facility] Last Admin: 08/17/17 13:12 Dose: Not Given Pantoprazole Sodium (Protonix -) 40 mg PO BID [facility] Last Admin: 08/17/17 10:40 Dose: 40 mg Tamsulosin HCl (Flomax -) 0.4 mg PO [facility] Last Admin: 08/16/17 21:15 Dose: 0.4 mg Tiotropium [place] (Spiriva -) 1 puff IH DAILY [facility] Last Admin: 08/17/17 10:40 Dose: 1 puff Trazodone HCl (Desyrel -) 100 mg PO [facility] Last Admin: 08/16/17 21:15 Dose: 100 mg - Objective Vital Signs: Vital Signs Temperature 98.7 F 08/17/17 14:00 Pulse Rate 62 08/17/17 14:00 Respiratory Rate 17 08/17/17 14:00 Blood Pressure 100/57 08/17/17 14:00 O2 Sat by Pulse Oximetry (%) 94 L 08/17/17 14:00 Constitutional: Yes: No Distress Cardiovascular: Yes: Regular Rate and Rhythm Respiratory: Yes: Regular Gastrointestinal: Yes: Normal Bowel Sounds Musculoskeletal: Yes: WNL Integumentary: Yes: WNL Neurological: Yes: Alert, Oriented Labs: CBC, BMP 08/17/17 10:34 08/17/17 10:34 INR, PTT INR 1.32 (0.82-1.09) H 08/12/17 07:45 Problem List - Problems (1) Acute diverticulitis Code(s): K57.92 - DVTRCLI OF INTEST, PART UNSP, W/O PERF OR ABSCESS W/O BLEED (2) CKD (chronic kidney disease) Code(s): N18.9 - CHRONIC KIDNEY DISEASE, UNSPECIFIED Qualifiers: Chronic kidney disease stage: stage 4 (severe) Qualified Code(s): N18.4 - Chronic kidney disease, stage 4 (severe) (3) Rectal bleeding Code(s): K62.5 - HEMORRHAGE OF ANUS AND RECTUM (4) CHF (congestive heart failure) Code(s): I50.9 - HEART FAILURE, UNSPECIFIED Qualifiers: Congestive heart failure type: combined Congestive heart failure chronicity : acute on chronic Qualified Code(s): I50.43 - Acute on chronic combined systolic (congestive) and diastolic (congestive) heart failure Assessment/Plan 71 y.o. male with hx of CAD s/p CABG, Afib on Eliquis, AV replacement, CKD, COPD , CHF presenting with bloody/dark stools and abdominal pain. Now with c/o constipation, vomiting, persistent abd pain Diverticulitis GI bleed CKD Leukocytosis - improved GI bleed Anemia - CT abd ordered - cont. antibiotics for now - monitor vitals
[2017-08-17] MEDS: METRONIDAZOLE 500 MG PREMIXED 500 MG/100 ML MG IVPB SCH (17:57)
[2017-08-17] MEDS ORDERED: DEXTROSE 5%-0.45% SALINE 1,000 ML IV SCH (18:45)
[2017-08-17] MEDS ORDERED: ZOLPIDEM TARTRATE 5 MG TABLET PO PRN (19:40)
[2017-08-17] MEDS ORDERED: traZODone HCL 50 MG TABLET (FP) ONE (21:02)
--- NOTE | 2017-08-17 21:05 | PN ---
Progress Note, Physician History of Present Illness: npo - Current Medication List Current Medications: Active Medications Atorvastatin Calcium (Lipitor -) 20 mg PO HS [facility] Last Admin: 08/16/17 21:16 Dose: 20 mg Bisacodyl (Dulcolax Suppository -) 10 mg [place] PRN PRN PRN Reason: CONSTIPATION Last Admin: 08/16/17 21:50 Dose: 10 mg Budesonide/Formoterol Fumarate (Symbicort 160/4.5mcg -) 1 puff IH DAILY [facility] Last Admin: 08/17/17 14:08 Dose: Not Given Calcium Carbonate (Calcium Carb Oral Suspension -) 500 mg PO DAILY [facility] Last Admin: 08/17/17 10:41 Dose: 500 mg Carvedilol (Coreg -) 12.5 mg PO BID [facility] Last Admin: 08/17/17 10:40 Dose: 12.5 mg Fluticasone Propionate (Flonase -) 1 spray NS BID [facility] Last Admin: 08/17/17 10:40 Dose: 1 spray Furosemide (Lasix -) 40 mg PO DAILY [facility] Last Admin: 08/17/17 13:56 Dose: 40 mg Hydromorphone HCl (Dilaudid Injection -) 1 mg IVPB Q4H PRN PRN Reason: PAIN Last Admin: 08/17/17 19:47 Dose: 1 mg Levofloxacin (Levaquin 250 Mg Premixed Ivpb -) 250 mg in 50 mls @ 50 mls/hr IVPB DAILY [facility] Last Admin: 08/17/17 10:40 Dose: 50 mls/hr Metronidazole (Flagyl 500mg Premixed Ivpb -) 500 mg in 100 mls @ 100 mls/hr IVPB Q8H-IV [facility] Last Admin: 08/17/17 17:57 Dose: 100 mls/hr Montelukast Sodium (Singulair -) 10 mg PO HS [facility] Last Admin: 08/16/17 21:15 Dose: 10 mg Xopenex Hfa Inhaler (Non-Formulary Med) 1 each IH Q6H PRN PRN Reason: SHORT OF BREATH/WHEEZING Last Admin: 08/11/17 23:06 Dose: 1 each Ondansetron HCl (Zofran Injection) 4 mg IVPUSH Q4H PRN PRN Reason: NAUSEA AND/OR VOMITING Last Admin: 08/17/17 16:04 Dose: 4 mg Pancrelipase (Creon Dr 36,000 Units Capsule) 1 cap PO TIDCM [facility] Last Admin: 08/17/17 17:29 Dose: Not Given Pantoprazole Sodium (Protonix -) 40 mg PO BID [facility] Last Admin: 08/17/17 10:40 Dose: 40 mg Tamsulosin HCl (Flomax -) 0.4 mg PO HS [facility] Last Admin: 08/16/17 21:15 Dose: 0.4 mg Tiotropium [place] (Spiriva -) 1 puff IH DAILY [facility] Last Admin: 08/17/17 10:40 Dose: 1 puff Trazodone HCl (Desyrel -) 100 mg PO HS [facility] Last Admin: 08/16/17 21:15 Dose: 100 mg Zolpidem Tartrate (Ambien -) 5 mg PO HS PRN - Objective Vital Signs: Vital Signs Temperature 97.8 F 08/17/17 20:00 Pulse Rate 65 08/17/17 20:00 Respiratory Rate 20 08/17/17 20:00 Blood Pressure 112/69 08/17/17 20:00 O2 Sat by Pulse Oximetry (%) 94 L 08/17/17 14:00 HENT: Yes: Atraumatic Neck: Yes: Supple Cardiovascular: Yes: Regular Rate and Rhythm Respiratory: Yes: CTA Bilaterally Gastrointestinal: Yes: Distention, Hypoactive Bowel Sounds Extremities: Yes: WNL Neurological: Yes: Alert, Oriented Labs: CBC, BMP 08/17/17 10:34 08/17/17 10:34 INR, PTT INR 1.32 (0.82-1.09) H 08/12/17 07:45 Problem List - Problems (1) Rectal bleeding Assessment/Plan: resolved Code(s): K62.5 - HEMORRHAGE OF ANUS AND RECTUM (2) CHF (congestive heart failure) Assessment/Plan: stable no sob Code(s): I50.9 - HEART FAILURE, UNSPECIFIED Qualifiers: Congestive heart failure type: combined Congestive heart failure chronicity : acute on chronic Qualified Code(s): I50.43 - Acute on chronic combined systolic (congestive) and diastolic (congestive) heart failure (3) Acute diverticulitis Assessment/Plan: on iv abx id on board Code(s): K57.92 - DVTRCLI OF INTEST, PART UNSP, W/O PERF OR ABSCESS W/O BLEED (4) Anemia Assessment/Plan: monitor s/p prbc transfusion Code(s): D64.9 - ANEMIA, UNSPECIFIED Qualifiers: Anemia type: unspecified type Qualified Code(s): D64.9 - Anemia, unspecified (5) CKD (chronic kidney disease) Assessment/Plan: monitor renal on board Code(s): N18.9 - CHRONIC KIDNEY DISEASE, UNSPECIFIED Qualifiers: Chronic kidney disease stage: stage 4 (severe) Qualified Code(s): N18.4 - Chronic kidney disease, stage 4 (severe) (6) CHF Congestive heart failure Code(s): I50.9 - HEART FAILURE, UNSPECIFIED (7) SBO (small bowel obstruction) Assessment/Plan: npo, ivf...stop now iv pain meds gi fu Code(s): K56.609 - UNSP INTESTNL OBST, UNSP TO PARTIAL VERSUS COMPLETE OBST (8) Hypercholesterolemia Code(s): E78.00 - PURE HYPERCHOLESTEROLEMIA, UNSPECIFIED
[2017-08-17] MEDS: ATORVASTATIN CA 20 MG TABLET (FP) PO SCH (21:06)
[2017-08-17] MEDS: traZODone HCL 100 MG TABLET (FP) PO SCH (21:06)
[2017-08-17] MEDS: TAMSULOSIN HCL 0.4 MG CAP.ER.24H (FP) PO SCH (21:06)
[2017-08-17] MEDS: MONTELUKAST NA 10 MG TABLET PO SCH (21:06)
[2017-08-18] MEDS: METRONIDAZOLE 500 MG PREMIXED 500 MG/100 ML MG IVPB SCH ×3 (01:29→18:24)
[2017-08-18] MEDS: ONDANSETRON 4 MG/2 ML VIAL IVPUSH PRN ×3 (03:22→11:20)
[2017-08-18] MEDS: HYDROmorphone HCL CARPU-JECT 2 MG/1 ML DISP.SYRIN IVPB PRN ×3 (05:04→23:35)
[2017-08-18] MEDS: LIPASE/PROTEASE/AMYLASE 36,000 UNIT CAPSULE PO SCH ×3 (07:57→17:40)
[2017-08-18 08:38] LABS: BASO % 0.1 % (0-2.0); EOS % 0.6 % (0-4.5); HEMATOCRIT 31.7 % (35.4-49); HEMOGLOBIN 10.3 GM/dL (11.7-16.9); LYMPH % 2.9 % (8-40); MCH 29.3 pg (25.7-33.7); MCHC 32.6 g/dl (32.0-35.9); MONO % 6.6 % (3.8-10.2); NEUT % 89.8 % (42.8-82.8); PLATELET COUNT 222 K/MM3 (134-434); RBC 3.52 M/mm3 (4.00-5.60); RDW 15.8 % (11.9-15.9); WHITE BLOOD COUNT 9.6 K/mm3 (4.0-10.0)
[2017-08-18 09:05] LABS: ALBUMIN 2.5 g/dl (3.4-5.0); ALK PHOS 61 U/L (45-117); ANION GAP 17 (8-16); BILIRUBIN,TOTAL 0.4 mg/dL (0.2-1.0); BLOOD UREA NITROGEN 94 mg/dL (7-18); CALCIUM 9.4 mg/dL (8.5-10.1); CHLORIDE 95 mmol/L (98-107); CO2 25 mmol/L (21-32); CREATININE 6.1 mg/dL (0.7-1.3); GLUCOSE,RANDOM 101 mg/dL (74-106); POTASSIUM 4.1 mmol/L (3.5-5.1); SGOT/AST 15 U/L (15-37); SGPT/ALT 14 U/L (12-78); SODIUM 137 mmol/L (136-145); TOT PROT 5.5 g/dl (6.4-8.2)
[2017-08-18] MEDS: LEVOFLOXACIN 250 MG IVPB 250 MG/50 ML MG IVPB SCH (09:48)
--- NOTE | 2017-08-18 10:50 | PN ---
Progress Note, Physician Chief Complaint: Events noted. Patient continues to have emesis Abdominal CT shows partial SBO with mildly dilated small bowel loop History of Present Illness: Patient was seen and examined. Awake and alert. Chart was reviewed Denies chest pain, SOB or palpitation Continues to have intermittent vomiting and abdominal distension. Abdominal CT result noted GI input to follow for NGT - Current Medication List Current Medications: Active Medications Atorvastatin Calcium (Lipitor -) 20 mg PO HS [facility] Last Admin: 08/17/17 21:06 Dose: 20 mg Bisacodyl (Dulcolax Suppository -) 10 mg [place] PRN PRN PRN Reason: CONSTIPATION Last Admin: 08/16/17 21:50 Dose: 10 mg Budesonide/Formoterol Fumarate (Symbicort 160/4.5mcg -) 1 puff IH DAILY [facility] Last Admin: 08/17/17 14:08 Dose: Not Given Calcium Carbonate (Calcium Carb Oral Suspension -) 500 mg PO DAILY [facility] Last Admin: 08/17/17 10:41 Dose: 500 mg Carvedilol (Coreg -) 12.5 mg PO BID [facility] Last Admin: 08/17/17 21:06 Dose: 12.5 mg Fluticasone Propionate (Flonase -) 1 spray NS BID [facility] Last Admin: 08/17/17 21:07 Dose: 1 spray Furosemide (Lasix -) 40 mg PO DAILY [facility] Last Admin: 08/17/17 13:56 Dose: 40 mg Hydromorphone HCl (Dilaudid Injection -) 2 mg IVPB Q4H PRN PRN Reason: PAIN Last Admin: 08/18/17 09:27 Dose: 2 mg Levofloxacin (Levaquin 250 Mg Premixed Ivpb -) 250 mg in 50 mls @ 50 mls/hr IVPB DAILY [facility] Last Admin: 08/18/17 09:48 Dose: 50 mls/hr Metronidazole (Flagyl 500mg Premixed Ivpb -) 500 mg in 100 mls @ 100 mls/hr IVPB Q8H-IV [facility] Last Admin: 08/18/17 01:29 Dose: 100 mls/hr Montelukast Sodium (Singulair -) 10 mg PO HS [facility] Last Admin: 08/17/17 21:06 Dose: 10 mg Xopenex Hfa Inhaler (Non-Formulary Med) 1 each IH Q6H PRN PRN Reason: SHORT OF BREATH/WHEEZING Last Admin: 08/11/17 23:06 Dose: 1 each Ondansetron HCl (Zofran Injection) 4 mg IVPUSH Q4H PRN PRN Reason: NAUSEA AND/OR VOMITING Last Admin: 08/18/17 07:03 Dose: 4 mg Pancrelipase (Creon Dr 36,000 Units Capsule) 1 cap PO TIDCM [facility] Last Admin: 08/18/17 07:57 Dose: Not Given Pantoprazole Sodium (Protonix -) 40 mg PO BID [facility] Last Admin: 08/17/17 21:05 Dose: 40 mg Tamsulosin HCl (Flomax -) 0.4 mg PO HS [facility] Last Admin: 08/17/17 21:06 Dose: 0.4 mg Tiotropium [place] (Spiriva -) 1 puff IH DAILY [facility] Last Admin: 08/17/17 10:40 Dose: 1 puff Trazodone HCl (Desyrel -) 100 mg PO HS [facility] Last Admin: 08/17/17 21:06 Dose: 100 mg Zolpidem Tartrate (Ambien -) 5 mg PO HS [facility]N Last Admin: 08/17/17 21:06 Dose: 5 mg - Objective Vital Signs: Vital Signs Temperature 97.0 F L 08/18/17 01:56 Pulse Rate 60 08/18/17 01:56 Respiratory Rate 19 08/18/17 01:56 Blood Pressure 106/63 08/18/17 01:56 O2 Sat by Pulse Oximetry (%) 95 08/18/17 06:00 Constitutional: Yes: Mild Distress Eyes: Yes: PERRL Neck: Yes: Supple Cardiovascular: Yes: Regular Rate and Rhythm, Murmur (Soft SM), S1, S2 Respiratory: Yes: Diminished Gastrointestinal: Yes: Distention, Tenderness (Diffuse) Edema: Yes Additional Findings/Remarks: - Review of Systems Constitutional: denies: Chills, Fever Cardiovascular: denies: Chest Pain, Palpitations, Shortness of Breath Respiratory: denies: Cough, Hemoptysis, Orthopnea, PND, SOB, SOB on Exertion Gastrointestinal: reports: Abdominal Pain, Diarrhea, Melena, Rectal Bleeding. denies: Constipation, (+) Nausea, (+) Vomiting Genitourinary: denies: Dysuria, Hematuria Musculoskeletal: denies: Joint Pain Neurological: denies: Dizziness, Headache, Seizure, Syncope Labs: CBC, BMP 08/18/17 08:00 08/18/17 08:00 Problem List - Problems (1) CVD (cerebrovascular disease) Code(s): I67.9 - CEREBROVASCULAR DISEASE, UNSPECIFIED (2) Hypercholesterolemia Code(s): E78.00 - PURE HYPERCHOLESTEROLEMIA, UNSPECIFIED (3) Sick sinus syndrome Code(s): I49.5 - SICK SINUS SYNDROME (4) Presence of permanent cardiac pacemaker Code(s): Z95.0 - PRESENCE OF CARDIAC PACEMAKER (5) Hx of CABG Code(s): Z95.1 - PRESENCE OF AORTOCORONARY BYPASS GRAFT (6) Abdominal pain Code(s): R10.9 - UNSPECIFIED ABDOMINAL PAIN Qualifiers: Abdominal location: unspecified location Qualified Code(s): R10.9 - Unspecified abdominal pain (7) Acute diverticulitis Code(s): K57.92 - DVTRCLI OF INTEST, PART UNSP, W/O PERF OR ABSCESS W/O BLEED (8) Anemia Code(s): D64.9 - ANEMIA, UNSPECIFIED Qualifiers: Anemia type: unspecified type Qualified Code(s): D64.9 - Anemia, unspecified (9) CKD (chronic kidney disease) Code(s): N18.9 - CHRONIC KIDNEY DISEASE, UNSPECIFIED Qualifiers: Chronic kidney disease stage: stage 4 (severe) Qualified Code(s): N18.4 - Chronic kidney disease, stage 4 (severe) (10) Rectal bleeding Code(s): K62.5 - HEMORRHAGE OF ANUS AND RECTUM (11) CHF (congestive heart failure) Code(s): I50.9 - HEART FAILURE, UNSPECIFIED Qualifiers: Congestive heart failure type: combined Congestive heart failure chronicity : acute on chronic Qualified Code(s): I50.43 - Acute on chronic combined systolic (congestive) and diastolic (congestive) heart failure (12) Partial small bowel obstruction Code(s): K56.600 - PARTIAL INTESTINAL OBSTRUCTION, UNSPECIFIED TO CAUSE Assessment/Plan 1. Rectal bleed, underlying diverticulitis now with partial SBO with dilated small bowel loops 2. CAD s/p CABG, angina pectoris 3. Persistent AF with underlying PPM for sick sinus syndrome 4. Acute on CKD with worsening creatinine 5. Hypercholesterolemia 6. CVA/TIA 7. COPD 8. TAA and AAA PLAN: 1. GI to follow for further management including NGT. Possible surgical evaluation 2. Monitor renal function, gentle hydration, 3. Continue Carvedilol as tolerated and if able to take PO 4. Continue Atorvastatin if able to take PO 5. Monitor CBC and transfuse PRBC as needed 6. TAA and AAA likely also needs surveillance probably not ready for intervention Further plans are to follow. Importance of above issues emphasized to patient. Currently he is off Eliquis, but will need to resume once cleared after current event with the diverticulitis and partial SBO Guarded Klever Marti MD
[2017-08-18] MEDS ORDERED: PT OWN MED DRAWER 7, Y5N ONE ×2 (10:59→21:26)
[2017-08-18] MEDS: CARVEDILOL 12.5 MG TABLET (FP) PO SCH ×2 (11:17→21:24)
[2017-08-18] MEDS: PANTOPRAZOLE 40 MG TABLET (FP) PO SCH ×2 (11:18→21:24)
[2017-08-18] MEDS: FUROSEMIDE 40 MG TABLET (FP) PO SCH (11:18)
[2017-08-18] MEDS: CALCIUM CARBONATE SUSPENSION - 500 MG/5 ML ML PO SCH (11:18)
[2017-08-18] MEDS: TIOTROPIUM BROMIDE 18 MCG/INH (DEVICE W/ 5 CAPSULES) IH SCH (11:19)
[2017-08-18] MEDS: FLUTICASONE PROP 0.05% 16 GM NASAL SPRAY NS SCH ×2 (11:19→22:31)
[2017-08-18] MEDS: BUDESONIDE/FORMETEROL FUMARATE 160/4.5 mcg INHALER IH SCH (11:19)
[2017-08-18] MEDS ORDERED: DEXTROSE 5%-WATER - 1,000 ML IV SCH (15:00)
--- NOTE | 2017-08-18 15:03 | PN ---
Progress Note, Physician History of Present Illness: Pt seen and examined at bedside. He is awake and alert. He had the NG tube placed and is draining. - Current Medication List Current Medications: Active Medications Atorvastatin Calcium (Lipitor -) 20 mg PO HS [facility] Last Admin: 08/17/17 21:06 Dose: 20 mg Bisacodyl (Dulcolax Suppository -) 10 mg DC PRN PRN PRN Reason: CONSTIPATION Last Admin: 08/16/17 21:50 Dose: 10 mg Budesonide/Formoterol Fumarate (Symbicort 160/4.5mcg -) 1 puff IH DAILY [facility] Last Admin: 08/18/17 11:19 Dose: Not Given Calcium Carbonate (Calcium Carb Oral Suspension -) 500 mg PO DAILY [facility] Last Admin: 08/18/17 11:18 Dose: Not Given Carvedilol (Coreg -) 12.5 mg PO BID [facility] Last Admin: 08/18/17 11:17 Dose: Not Given Fluticasone Propionate (Flonase -) 1 spray NS BID [facility] Last Admin: 08/18/17 11:19 Dose: 1 spray Hydromorphone HCl (Dilaudid Injection -) 2 mg IVPB Q4H PRN PRN Reason: PAIN Last Admin: 08/18/17 09:27 Dose: 2 mg Levofloxacin (Levaquin 250 Mg Premixed Ivpb -) 250 mg in 50 mls @ 50 mls/hr IVPB DAILY [facility] Last Admin: 08/18/17 09:48 Dose: 50 mls/hr Metronidazole (Flagyl 500mg Premixed Ivpb -) 500 mg in 100 mls @ 100 mls/hr IVPB Q8H-IV [facility] Last Admin: 08/18/17 11:46 Dose: 100 mls/hr Montelukast Sodium (Singulair -) 10 mg PO HS [facility] Last Admin: 08/17/17 21:06 Dose: 10 mg Xopenex Hfa Inhaler (Non-Formulary Med) 1 each IH Q6H PRN PRN Reason: SHORT OF BREATH/WHEEZING Last Admin: 08/11/17 23:06 Dose: 1 each Ondansetron HCl (Zofran Injection) 4 mg IVPUSH Q4H PRN PRN Reason: NAUSEA AND/OR VOMITING Last Admin: 08/18/17 11:20 Dose: 4 mg Pancrelipase (Creon Dr 36,000 Units Capsule) 1 cap PO TIDCM [facility] Last Admin: 08/18/17 12:59 Dose: Not Given Pantoprazole Sodium (Protonix -) 40 mg PO BID [facility] Last Admin: 08/18/17 11:18 Dose: Not Given Tamsulosin HCl (Flomax -) 0.4 mg PO HS [facility] Last Admin: 08/17/17 21:06 Dose: 0.4 mg Tiotropium [place] (Spiriva -) 1 puff IH DAILY [facility] Last Admin: 08/18/17 11:19 Dose: 1 puff Trazodone HCl (Desyrel -) 100 mg PO HS [facility] Last Admin: 08/17/17 21:06 Dose: 100 mg Zolpidem Tartrate (Ambien -) 5 mg PO HS PRN Last Admin: 08/17/17 21:06 Dose: 5 mg - Objective Vital Signs: Vital Signs Temperature 97.9 F 08/18/17 14:00 Pulse Rate 72 08/18/17 14:00 Respiratory Rate 17 08/18/17 14:00 Blood Pressure 98/59 08/18/17 14:00 O2 Sat by Pulse Oximetry (%) 94 L 08/18/17 11:33 Constitutional: Yes: Anxious Eyes: Yes: Conjunctiva Clear HENT: Yes: Atraumatic Neck: Yes: Supple Cardiovascular: Yes: S1, S2 Respiratory: Yes: On Nasal O2 Gastrointestinal: Yes: Soft Genitourinary: Yes: WNL Edema: Yes Edema: LLE: 1+, RLE: 1+ Neurological: Yes: Oriented Psychiatric: Yes: Oriented Labs: CBC, BMP 08/18/17 08:00 08/18/17 08:00 INR, PTT INR 1.32 (0.82-1.09) H 08/12/17 07:45 - ....Imaging Cat Scan: Report Reviewed (sbo) Problem List - Problems (1) CKD (chronic kidney disease) Code(s): N18.9 - CHRONIC KIDNEY DISEASE, UNSPECIFIED Qualifiers: Chronic kidney disease stage: stage 4 (severe) Qualified Code(s): N18.4 - Chronic kidney disease, stage 4 (severe) (2) Anemia Code(s): D64.9 - ANEMIA, UNSPECIFIED Qualifiers: Anemia type: unspecified type Qualified Code(s): D64.9 - Anemia, unspecified (3) Abdominal pain Code(s): R10.9 - UNSPECIFIED ABDOMINAL PAIN Qualifiers: Abdominal location: unspecified location Qualified Code(s): R10.9 - Unspecified abdominal pain (4) Rectal bleeding Code(s): K62.5 - HEMORRHAGE OF ANUS AND RECTUM (5) Acute exacerbation of COPD with asthma Code(s): J44.1 - CHRONIC OBSTRUCTIVE PULMONARY DISEASE W (ACUTE) EXACERBATION; J45.901 - UNSPECIFIED ASTHMA WITH (ACUTE) EXACERBATION (6) CHF (congestive heart failure) Code(s): I50.9 - HEART FAILURE, UNSPECIFIED Qualifiers: Congestive heart failure type: combined Congestive heart failure chronicity : acute on chronic Qualified Code(s): I50.43 - Acute on chronic combined systolic (congestive) and diastolic (congestive) heart failure Assessment/Plan Current Medications Generic Name Dose Route Start Last Admin Trade Name Freq PRN Reason Stop Dose Admin Atorvastatin Calcium 20 mg 08/10/17 20:15 08/17/17 21:06 Lipitor - PO 20 mg HS [facility] Administration Bisacodyl 10 mg 08/13/17 23:06 08/16/17 21:50 Dulcolax Suppository - DC 10 mg PRN PRN Administration CONSTIPATION Budesonide/Formoterol Fumarate 1 puff 08/11/17 10:00 08/18/17 11:19 Symbicort 160/4.5mcg - IH Not Given DAILY [facility] Calcium Carbonate 500 mg 08/11/17 16:30 08/18/17 11:18 Calcium Carb Oral Suspension - PO Not Given DAILY [facility] Carvedilol 12.5 mg 08/12/17 22:00 08/18/17 11:17 Coreg - PO Not Given BID [facility] Fluticasone Propionate 1 spray 08/10/17 22:00 08/18/17 11:19 Flonase - NS 1 spray BID [facility] Administration Hydromorphone HCl 2 mg 08/18/17 09:17 08/18/17 09:27 Dilaudid Injection - IVPB 2 mg Q4H PRN Administration PAIN Levofloxacin 250 mg in 50 mls @ 50 mls/hr 08/17/17 10:00 08/18/17 09:48 Levaquin 250 Mg Premixed Ivpb - IVPB 50 mls/hr DAILY [facility] Administration Metronidazole 500 mg in 100 mls @ 100 mls/hr 08/17/17 18:00 08/18/17 11:46 Flagyl 500mg Premixed Ivpb - IVPB 100 mls/hr Q8H-IV [facility] Administration Dextrose 1,000 mls @ 42 mls/hr 08/18/17 15:00 D5w - IV Q24H [facility] Montelukast Sodium 10 mg 08/10/17 20:15 08/17/17 21:06 Singulair - PO 10 mg HS [facility] Administration Xopenex Hfa Inhaler 1 each 08/10/17 23:14 08/11/17 23:06 Non-Formulary Med IH 1 each Q6H PRN Administration SHORT OF BREATH/WHEEZING Ondansetron HCl 4 mg 08/17/17 09:36 08/18/17 11:20 Zofran Injection IVPUSH 4 mg Q4H PRN Administration NAUSEA AND/OR VOMITING Pancrelipase 1 cap 08/14/17 08:00 08/18/17 12:59 Crearmando Olmos 36,000 Units Capsule PO Not Given TIDCM [facility] Pantoprazole Sodium 40 mg 08/10/17 23:15 08/18/17 11:18 Protonix - PO Not Given BID [facility] Tamsulosin HCl 0.4 mg 08/10/17 20:15 08/17/17 21:06 Flomax - PO 0.4 mg HS [facility] Administration Tiotropium [place] 1 puff 08/11/17 10:00 08/18/17 11:19 Spiriva - IH 1 puff DAILY [facility] Administration Trazodone HCl 100 mg 08/10/17 22:00 08/17/17 21:06 Desyrel - PO 100 mg HS [facility] Administration Zolpidem Tartrate 5 mg 08/17/17 19:40 08/17/17 21:06 Ambien - PO 5 mg HS PRN Administration Impression 1. CKD 2. ALAN 3. anemia 4. GI bleed 5. BPH 6. a-fib 7. aortic aneurysm 8. COPD 9. insomnia 10. SBO Plan - pt found to have SBO - ng tube placed and has drained out about 1.5 liters within first half hour - renal function is worsening - will start gently hydration as pt is NPO - hold lasix today - GI/surgery - discussed with GI - discussed with and with his daughter - keep arb on hold - will follow closely - will evaluate for HD daily Dr Ortega
--- NOTE | 2017-08-18 15:05 | PN ---
GI Progress Note Subjective: patient was having nausea and vomiting since last night. This was accompanied by mild diffuse abdominal pain. CT was done which revealed partial obstruction - Objective Vital Signs: Vital Signs Temperature 97.9 F 08/18/17 14:00 Pulse Rate 72 08/18/17 14:00 Respiratory Rate 17 08/18/17 14:00 Blood Pressure 98/59 08/18/17 14:00 O2 Sat by Pulse Oximetry (%) 94 L 08/18/17 11:33 Constitutional: Well Nourished Eyes: Yes: Conjunctiva Clear HENT: Yes: Atraumatic Neck: Yes: Supple Cardiovascular: Yes: Regular Rate and Rhythm Respiratory: Yes: CTA Bilaterally ...Auscultate: Yes: Hypoactive Bowel Sounds ...Palpate: Yes: Soft, Tenderness (--mild). No: Firm/Rigid, Guarding, Pulsatile Mass, Splenomegaly, Tenderness, Rebound Labs: CBC, BMP 08/18/17 08:00 08/18/17 08:00 INR, PTT INR 1.32 (0.82-1.09) H 08/12/17 07:45 - ....Imaging Cat Scan: Report Reviewed Problem List - Problems (1) Abdominal pain Assessment/Plan: mild associated with partial SBO.. NGT was inserted a total of 1300 cc of green bile was obtained. Most likely the patient has low flow state causing mesenteric ischemia resulting in partial SBO. This was explained to the daughter. It is important NGT remains in place to avoid progression R> NGT to low GOO surgical evaluation NGT was inserted at 12:45 pm. At #pm 1.3 L of fluid was suctioned. Abdominal pain on repeat examination resolved, abdominal distention resolved. Code(s): R10.9 - UNSPECIFIED ABDOMINAL PAIN Qualifiers: Qualified Code(s): R10.9 - Unspecified abdominal pain
[2017-08-18] MEDS ORDERED: DEXTROSE 5%-NORMAL SALINE 1,000 ML IV SCH (15:15)
--- NOTE | 2017-08-18 15:41 | CONSULT ---
Consult Consult Specialty:: general surgery Referred by:: pat Brown Reason for Consultation:: partial SBO - History of Present Illness Chief Complaint: partial SBO History of Present Illness: 71 yo male with a PMH of AFib (on Eloquis), CAD (s/p CABG), Aortic Valve Replacement (patient uncertain if prosthetic or mechanical valve) and COPD (10/09 to 05/18 exposure), CKD and recently diagnosed CHF presented to ED today c/o 1 day dark red blood per rectum as well as intermittent abdominal cramping and increased urgency for bowel movement. Patient states he first noticed the blood yesterday evening and it continued through this morning, bloody BM x4, prompting his visit. History of intermittent constipation. Patient states he had a colonoscopy 5 years previous which was normal. Of note, patient was evaluated at [place] [facility] on 07/31 for B/L LE swelling at which time he left against medical advice. He LGIB ultimately stopped after transfusion of 2 units RBC. CTscan on 08/11 showed diverticulosis, no sign of obstruction CTscan on 08/17 shows distended stomach and small bowel, contrast was very proximal. Only previous abdominal surgery was an open appendectomy. we were asked to assess. - History Source History Provided By: Patient, Family Member (daughter ), Medical Record Limitations to Obtaining History: No Limitations - Past Medical History [employer]: No: Alzheimer's, CVA, Dementia, Migraine, Multiple Sclerosis, Peripheral Neuropathy, Parkinson's, Seizure, Syncope, TIA, Vertigo, Other Cardio/Vascular: Yes: AFIB, CAD, CHF Pulmonary: Yes: COPD Gastrointestinal: Yes: Constipation, GI Bleed Renal/: Yes: Renal Failure, Renal Inusuff Infectious Disease: No: AIDS, C-Diff, Herpes Zoster, HIV, MRSA, STD's, Tuberculosis, VREF, Other Psych: No: Addictions, Anxiety, Bipolar, Depression, Panic, Psychosis, Schizophrenia, Other Musculoskeletal: No: Bursitis, Chronic low back pain, Hemiparesis, Hemiplegia, Osteoarthritis, Paraplegia, Other Rheumatology: No: Fibromyalgia, Gout, Lupus, Rheumatoid Arthritis, Sarcoidosis, Vasculitis, Other ENT: No: Allergic Rhinitis, Sinusitis, Other Endocrine: No: Ramey's Disease, Aragon's Disease, Diabetes Insipidus, Diabetes Mellitus, Hyperparathyroidism, Hyperthyroidism, Hypothyroidism, Osteopenia, SIADH, Other Dermatology: No: Basal Cell, Cellulitis, Eczema, Melanoma, Psoriasis, Squamous Cell, Other - Past Surgical History Past Surgical History: Yes: CABG, Permanent Pacemaker Additional Surgical History: aortic valve replacement, Appendectomy - Alcohol/Substance Use Hx Alcohol Use: No History of Substance Use: reports: None - Smoking History Smoking history: Former smoker Have you smoked in the past 12 months: No - Social History Usual Living Arrangement: Alone Place of : [facility] History of Recent Travel: No Home Medications - Allergies Allergies/Adverse Reactions: Allergies Allergy/AdvReac Type Severity Reaction Status Date / Time No Known Allergies Allergy Verified 08/10/17 12:02 - Home Medications Home Medications: Ambulatory Orders Albuterol 0.083% Nebulizer Kristyn [Ventolin 0.083%] 1 neb NEB QID PRN 04/02/16 Apixaban [Eliquis] 5 mg PO BID 04/02/16 Aspirin [ASA -] 81 mg PO DAILY 04/02/16 Atorvastatin Calcium 20 mg PO HS 04/02/16 Azelastine HCl [Astepro] 1 - 2 spr NS BID 04/02/16 Budesonide/Formeterol Fumarate [SYMBICORT 160/4.5mcg -] 1 inh PO DAILY 04/02/16 Cholecalciferol (Vitamin D3) [Vitamin D3 -] 3,000 unit PO DAILY 04/02/16 Ethambutol HCl [Myambutol -] 400 mg PO DAILY 04/02/16 Furosemide [Lasix -] 20 mg PO DAILY 04/02/16 Levalbuterol Tartrate [Xopenex Hfa] 15 gm IH DAILY PRN 04/02/16 Montelukast Na [Singulair -] 10 mg PO HS 04/02/16 Omeprazole [Prilosec] 40 mg PO BID 04/02/16 Tamsulosin HCl [Flomax] 0.4 mg PO HS 04/02/16 Tiotropium [place] [Spiriva] 1 inh PO DAILY 04/02/16 Trazodone HCl [Desyrel -] 100 mg PO HS 04/02/16 Zolpidem Tartrate [Ambien] 10 mg PO HS 04/02/16 Carvedilol 12.5 mg PO DAILY 08/10/17 Triamcinolone Acetonide [Nasacort] 1 inh BID 08/10/17 Valsartan 320 mg PO DAILY 08/10/17 Review of Systems - Review of Systems Constitutional: denies: Chills, Fever HENT: denies: Difficult Swallowing, Throat Pain Cardiovascular: reports: Edema (LE edema). denies: Chest Pain, Palpitations Gastrointestinal: reports: Constipation. denies: Abdominal Pain Genitourinary: denies: Dysuria, Frequency Breasts: reports: No Symptoms Reported, See HPI Musculoskeletal: denies: Muscle Pain, Muscle Weakness Integumentary: denies: Lump, Rash Neurological: denies: Confusion, Dizziness Endocrine: denies: Unexplained Weight Gain, Unexplained Weight Loss Psychiatric: denies: Anxiety, Depression Pain Intensity: 2 Physical Exam Vital Signs: Vital Signs Temperature 97.9 F 08/18/17 14:00 Pulse Rate 72 08/18/17 14:00 Respiratory Rate 08/18/17 14:00 Blood Pressure 98/59 08/18/17 14:00 O2 Sat by Pulse Oximetry (%) 94 L 08/18/17 11:33 Vital Signs Period Temp Pulse Resp BP Sys/Whitaker Pulse Ox Last 24 Hr 97.0 F-98 F 60-72 17-21 97-112/57-69 94-95 Intake & Output 08/18/17 08/19/17 08/19/17 23:59 07:59 15:59 Intake Total 0 583 Output Total 350 Balance 0 233 Weight 185 lb 7 oz Intake: IV 483 D5w - 1,000 ml @ 42 mls/ 483 hr IV Q24H EDY Rx#: [id number] IVPB 100 Oral 0 Output: Gastric Drainage 50 Urine 300 Void 300 Other: Voiding Method Toilet Toilet # Unmeasured Voids Void 2 1 Bowel Movement No Weight Measurement Method Built in [facility] Constitutional: Yes: No Distress, Calm Eyes: Yes: Conjunctiva Clear, EOM Intact HENT: Yes: Atraumatic, Normocephalic Neck: Yes: Supple, Trachea Midline Cardiovascular: Yes: Regular Rate and Rhythm, Murmur, S1, S2 Respiratory: Yes: Regular, CTA Bilaterally Gastrointestinal: Yes: Normal Bowel Sounds, Soft, Ascites, Distention, Tenderness (LLQ tenderness), Other (NGT is present). No: Tenderness, Epigastrium, Tenderness, Rebound ...Rectal Exam: Yes: Deferred Musculoskeletal: No: Muscle Pain, Muscle Weakness Extremities: No: Cool, Cyanosis Edema: Yes (bilateral below the knee) Peripheral Pulses WNL: Yes Integumentary: No: Jaundice Neurological: Yes: Alert, Oriented Psychiatric: Yes: Alert, Oriented Labs: CBC,CMP WBC 10.1 K/mm3 (4.0-10.0) H 08/19/17 06:30 RBC 3.34 M/mm3 (4.00-5.60) L 08/19/17 06:30 Hgb 10.0 GM/dL (11.7-16.9) L 08/19/17 06:30 Hct 30.0 % (35.4-49) L 08/19/17 06:30 MCV 89.7 fl (80-96) 08/19/17 06:30 MCH 29.8 pg (25.7-33.7) 08/19/17 06:30 MCHC 33.2 g/dl (32.0-35.9) 08/19/17 06:30 RDW 15.4 % (11.9-15.9) 08/19/17 06:30 Plt Count 205 K/MM3 (134-434) 08/19/17 06:30 MPV 7.7 fl (7.5-11.1) 08/19/17 06:30 Neutrophils % 83.2 % (42.8-82.8) H 08/19/17 06:30 Lymphocytes % 5.2 % (8-40) L D 08/19/17 06:30 Monocytes % 9.3 % (3.8-10.2) 08/19/17 06:30 Eosinophils % 2.2 % (0-4.5) D 08/19/17 06:30 Basophils % 0.1 % (0-2.0) 08/19/17 06:30 Retic Count 1.94 % (0.5-1.5) H 08/12/17 07:45 Sodium 137 mmol/L (136-145) 08/19/17 06:30 Potassium 4.5 mmol/L (3.5-5.1) 08/19/17 06:30 Chloride 95 mmol/L (98-107) L 08/19/17 06:30 Carbon Dioxide 24 mmol/L (21-32) 08/19/17 06:30 Anion Gap 18 (8-16) H 08/19/17 06:30 BUN 107 mg/dL (7-18) H* 08/19/17 06:30 Creatinine 8.3 mg/dL (0.7-1.3) H* D 08/19/17 06:30 Creat Clearance w eGFR 9.11 (>60) 08/18/17 08:00 Random Glucose 95 mg/dL (74-106) 08/19/17 06:30 Lactic Acid 2.6 mmol/L (0.4-2.0) H* 08/10/17 21:00 Calcium 8.7 mg/dL (8.5-10.1) 08/19/17 06:30 Phosphorus 6.1 mg/dL (2.5-4.9) H 08/12/17 07:45 Iron 15 ug/dL (38-169) L 08/12/17 07:45 TIBC 220 ug/dL (250-450) L 08/12/17 07:45 Iron Saturation 7 % (15-55) L 08/12/17 07:45 Ferritin 124.223 ng/ml (16.4-293.9) 08/12/17 07:45 Total Bilirubin 0.4 mg/dL (0.2-1.0) D 08/18/17 08:00 AST 15 U/L (15-37) D 08/18/17 08:00 ALT 14 U/L (12-78) 08/18/17 08:00 Alkaline Phosphatase 61 U/L (45-117) 08/18/17 08:00 LD Total 223 U/L (87-241) 08/12/17 07:45 B-Natriuretic Peptide 3344.85 pg/ml (5-125) H 08/10/17 12:38 Serum Total Protein 4.2 g/dL (6.0-8.5) L 08/12/17 07:45 Total Protein 5.5 g/dl (6.4-8.2) L 08/18/17 08:00 Albumin 2.5 g/dl (3.4-5.0) L 08/18/17 08:00 Globulin 2.1 g/dL (2.2-3.9) L 08/12/17 07:45 Albumin/Globulin Ratio 1.1 (0.7-1.7) 08/12/17 07:45 Htkvs-3-Mknnpdbss 0.3 g/dL (0.0-0.4) 08/12/17 07:45 Ourmi-2-Xkhkebwmq 0.7 g/dL (0.4-1.0) 08/12/17 07:45 Beta Globulins 0.7 g/dL (0.7-1.3) 08/12/17 07:45 Gamma Globulins 0.4 g/dL (0.4-1.8) 08/12/17 07:45 Lipase 129 U/L (73-393) 08/10/17 12:38 Imaging - Results Chest X-ray: Report Reviewed, Image Reviewed Cat Scan: Report Reviewed, Image Reviewed (distended contrast filled stomach. transition point RLQ) Problem List - Problems (1) SBO (small bowel obstruction) Code(s): K56.609 - UNSP INTESTNL OBST, UNSP TO PARTIAL VERSUS COMPLETE OBST (2) Abdominal pain Assessment/Plan: 71yo male MMP presents with a partial SBO, h/o appendectomy, recent normal colonoscopy. NPO and IVF hydration Abdominal xray daily to track progress of contrast trend labs for AM will follow for serial exams Family (daughter) and patient are not interested in operative manageemnt Code(s): R10.9 - UNSPECIFIED ABDOMINAL PAIN Qualifiers: Abdominal location: unspecified location Qualified Code(s): R10.9 - Unspecified abdominal pain (3) Acute diverticulitis Code(s): K57.92 - DVTRCLI OF INTEST, PART UNSP, W/O PERF OR ABSCESS W/O BLEED (4) Anemia Code(s): D64.9 - ANEMIA, UNSPECIFIED Qualifiers: Anemia type: unspecified type Qualified Code(s): D64.9 - Anemia, unspecified (5) Hypercholesterolemia Code(s): E78.00 - PURE HYPERCHOLESTEROLEMIA, UNSPECIFIED (6) CHF Congestive heart failure Code(s): I50.9 - HEART FAILURE, UNSPECIFIED
--- NOTE | 2017-08-18 17:21 | PN ---
Progress Note, Physician History of Present Illness: Events noted. CT Scan reveals partial SBO. Pt with NGT draining. - Current Medication List Current Medications: Active Medications Atorvastatin Calcium (Lipitor -) 20 mg PO HS [facility] Last Admin: 08/17/17 21:06 Dose: 20 mg Bisacodyl (Dulcolax Suppository -) 10 mg AL PRN PRN PRN Reason: CONSTIPATION Last Admin: 08/16/17 21:50 Dose: 10 mg Budesonide/Formoterol Fumarate (Symbicort 160/4.5mcg -) 1 puff IH DAILY [facility] Last Admin: 08/18/17 11:19 Dose: Not Given Calcium Carbonate (Calcium Carb Oral Suspension -) 500 mg PO DAILY [facility] Last Admin: 08/18/17 11:18 Dose: Not Given Carvedilol (Coreg -) 12.5 mg PO BID [facility] Last Admin: 08/18/17 11:17 Dose: Not Given Fluticasone Propionate (Flonase -) 1 spray NS BID [facility] Last Admin: 08/18/17 11:19 Dose: 1 spray Hydromorphone HCl (Dilaudid Injection -) 2 mg IVPB Q4H PRN PRN Reason: PAIN Last Admin: 08/18/17 09:27 Dose: 2 mg Levofloxacin (Levaquin 250 Mg Premixed Ivpb -) 250 mg in 50 mls @ 50 mls/hr IVPB DAILY [facility] Last Admin: 08/18/17 09:48 Dose: 50 mls/hr Metronidazole (Flagyl 500mg Premixed Ivpb -) 500 mg in 100 mls @ 100 mls/hr IVPB Q8H-IV [facility] Last Admin: 08/18/17 11:46 Dose: 100 mls/hr Dextrose/Sodium Chloride (D5-Ns -) 1,000 mls @ 42 mls/hr IV ASDIR [facility]Y Last Admin: 08/18/17 15:30 Dose: 42 mls/hr Lorazepam (Ativan Injection -) 1 mg IVPUSH ONCE ONE Stop: 08/18/17 19:01 Montelukast Sodium (Singulair -) 10 mg PO HS [facility] Last Admin: 08/17/17 21:06 Dose: 10 mg Xopenex Hfa Inhaler (Non-Formulary Med) 1 each IH Q6H PRN PRN Reason: SHORT OF BREATH/WHEEZING Last Admin: 08/11/17 23:06 Dose: 1 each Ondansetron HCl (Zofran Injection) 4 mg IVPUSH Q4H PRN PRN Reason: NAUSEA AND/OR VOMITING Last Admin: 08/18/17 11:20 Dose: 4 mg Pancrelipase (Creon Dr 36,000 Units Capsule) 1 cap PO TIDCM [facility] Last Admin: 08/18/17 12:59 Dose: Not Given Pantoprazole Sodium (Protonix -) 40 mg PO BID [facility] Last Admin: 08/18/17 11:18 Dose: Not Given Tamsulosin HCl (Flomax -) 0.4 mg PO HS [facility] Last Admin: 08/17/17 21:06 Dose: 0.4 mg Tiotropium [place] (Spiriva -) 1 puff IH DAILY [facility] Last Admin: 08/18/17 11:19 Dose: 1 puff Trazodone HCl (Desyrel -) 100 mg PO HS [facility] Last Admin: 08/17/17 21:06 Dose: 100 mg Zolpidem Tartrate (Ambien -) 5 mg PO HS PRN Last Admin: 08/17/17 21:06 Dose: 5 mg - Objective Vital Signs: Vital Signs Temperature 97.9 F 08/18/17 14:00 Pulse Rate 72 08/18/17 14:00 Respiratory Rate 17 08/18/17 14:00 Blood Pressure 98/59 08/18/17 14:00 O2 Sat by Pulse Oximetry (%) 94 L 08/18/17 11:33 Constitutional: Yes: No Distress HENT: Yes: Other (NGT with draining bilious fluid) Cardiovascular: Yes: Regular Rate and Rhythm Respiratory: Yes: CTA Bilaterally Gastrointestinal: Yes: Hypoactive Bowel Sounds Genitourinary: Yes: WNL Musculoskeletal: Yes: WNL Integumentary: Yes: WNL Labs: CBC, BMP 08/18/17 08:00 08/18/17 08:00 INR, PTT INR 1.32 (0.82-1.09) H 08/12/17 07:45 - ....Imaging Cat Scan: Report Reviewed (partial SBO, improvement in diverticulitis) Problem List - Problems (1) Acute diverticulitis Code(s): K57.92 - DVTRCLI OF INTEST, PART UNSP, W/O PERF OR ABSCESS W/O BLEED (2) CKD (chronic kidney disease) Code(s): N18.9 - CHRONIC KIDNEY DISEASE, UNSPECIFIED Qualifiers: Chronic kidney disease stage: stage 4 (severe) Qualified Code(s): N18.4 - Chronic kidney disease, stage 4 (severe) (3) Rectal bleeding Code(s): K62.5 - HEMORRHAGE OF ANUS AND RECTUM (4) CHF (congestive heart failure) Code(s): I50.9 - HEART FAILURE, UNSPECIFIED Qualifiers: Congestive heart failure type: combined Congestive heart failure chronicity : acute on chronic Qualified Code(s): I50.43 - Acute on chronic combined systolic (congestive) and diastolic (congestive) heart failure (5) SBO (small bowel obstruction) Code(s): K56.609 - UNSP INTESTNL OBST, UNSP TO PARTIAL VERSUS COMPLETE OBST Assessment/Plan 71 y.o. male with hx of CAD s/p CABG, Afib on Eliquis, AV replacement, CKD, COPD , CHF presenting with bloody/dark stools and abdominal pain. Now with c/o constipation, vomiting, persistent abd pain. CT abd with findings of partial SBO and improvement in sigmoid diverticulitis. Diverticulitis Partial SBO GI bleed CKD Leukocytosis - improved GI bleed Anemia - continue antibiotics for now - surgery following - monitor vitals
[2017-08-18] MEDS ORDERED: LORazepam 2 MG/ML SDV VIAL IVPUSH ONE (19:00)
[2017-08-18] MEDS: MONTELUKAST NA 10 MG TABLET PO SCH (21:24)
[2017-08-18] MEDS: traZODone HCL 100 MG TABLET (FP) PO SCH (21:24)
[2017-08-18] MEDS: ATORVASTATIN CA 20 MG TABLET (FP) PO SCH (21:24)
[2017-08-18] MEDS: TAMSULOSIN HCL 0.4 MG CAP.ER.24H (FP) PO SCH (21:24)
--- NOTE | 2017-08-18 22:50 | PN ---
Progress Note, Physician History of Present Illness: pain better - Current Medication List Current Medications: Active Medications Atorvastatin Calcium (Lipitor -) 20 mg PO HS [facility] Last Admin: 08/18/17 21:24 Dose: Not Given Bisacodyl (Dulcolax Suppository -) 10 mg [place] PRN PRN PRN Reason: CONSTIPATION Last Admin: 08/16/17 21:50 Dose: 10 mg Budesonide/Formoterol Fumarate (Symbicort 160/4.5mcg -) 1 puff IH DAILY [facility] Last Admin: 08/18/17 11:19 Dose: Not Given Calcium Carbonate (Calcium Carb Oral Suspension -) 500 mg PO DAILY [facility] Last Admin: 08/18/17 11:18 Dose: Not Given Carvedilol (Coreg -) 12.5 mg PO BID [facility] Last Admin: 08/18/17 21:24 Dose: Not Given Fluticasone Propionate (Flonase -) 1 spray NS BID [facility] Last Admin: 08/18/17 22:31 Dose: 1 spray Hydromorphone HCl (Dilaudid Injection -) 2 mg IVPB Q4H PRN PRN Reason: PAIN Last Admin: 08/18/17 09:27 Dose: 2 mg Levofloxacin (Levaquin 250 Mg Premixed Ivpb -) 250 mg in 50 mls @ 50 mls/hr IVPB DAILY [facility] Last Admin: 08/18/17 09:48 Dose: 50 mls/hr Metronidazole (Flagyl 500mg Premixed Ivpb -) 500 mg in 100 mls @ 100 mls/hr IVPB Q8H-IV [facility] Last Admin: 08/18/17 18:24 Dose: 100 mls/hr Dextrose/Sodium Chloride (D5-Ns -) 1,000 mls @ 42 mls/hr IV ASDIR [facility] Last Admin: 08/18/17 15:30 Dose: 42 mls/hr Montelukast Sodium (Singulair -) 10 mg PO HS [facility] Last Admin: 08/18/17 21:24 Dose: Not Given Xopenex Hfa Inhaler (Non-Formulary Med) 1 each IH Q6H PRN PRN Reason: SHORT OF BREATH/WHEEZING Last Admin: 08/11/17 23:06 Dose: 1 each Ondansetron HCl (Zofran Injection) 4 mg IVPUSH Q4H PRN PRN Reason: NAUSEA AND/OR VOMITING Last Admin: 08/18/17 11:20 Dose: 4 mg Pancrelipase (Creon Dr 36,000 Units Capsule) 1 cap PO TIDCM [facility] Last Admin: 08/18/17 17:40 Dose: Not Given Pantoprazole Sodium (Protonix -) 40 mg PO BID [facility] Last Admin: 08/18/17 21:24 Dose: Not Given Tamsulosin HCl (Flomax -) 0.4 mg PO HS [facility] Last Admin: 08/18/17 21:24 Dose: Not Given Tiotropium [place] (Spiriva -) 1 puff IH DAILY [facility] Last Admin: 08/18/17 11:19 Dose: 1 puff Trazodone HCl (Desyrel -) 100 mg PO HS [facility] Last Admin: 08/18/17 21:24 Dose: Not Given Zolpidem Tartrate (Ambien -) 5 mg PO HS [facility] Last Admin: 08/17/17 21:06 Dose: 5 mg - Objective Vital Signs: Vital Signs Temperature 97.9 F 08/18/17 14:00 Pulse Rate 72 08/18/17 14:00 Respiratory Rate 08/18/17 14:00 Blood Pressure 98/59 08/18/17 14:00 O2 Sat by Pulse Oximetry (%) 94 L 08/18/17 11:33 Constitutional: Yes: No Distress HENT: Yes: Atraumatic Neck: Yes: Supple Cardiovascular: Yes: Regular Rate and Rhythm Respiratory: Yes: CTA Bilaterally Gastrointestinal: Yes: Distention Extremities: Yes: WNL Neurological: Yes: Alert, Oriented Labs: CBC, BMP 08/18/17 08:00 08/18/17 08:00 INR, PTT INR 1.32 (0.82-1.09) H 08/12/17 07:45 Problem List - Problems (1) Rectal bleeding Assessment/Plan: resolved Code(s): K62.5 - HEMORRHAGE OF ANUS AND RECTUM (2) CHF (congestive heart failure) Assessment/Plan: stable no sob Code(s): I50.9 - HEART FAILURE, UNSPECIFIED Qualifiers: Congestive heart failure type: combined Congestive heart failure chronicity : acute on chronic Qualified Code(s): I50.43 - Acute on chronic combined systolic (congestive) and diastolic (congestive) heart failure (3) Acute diverticulitis Assessment/Plan: on iv abx id on board Code(s): K57.92 - DVTRCLI OF INTEST, PART UNSP, W/O PERF OR ABSCESS W/O BLEED (4) Anemia Assessment/Plan: monitor s/p prbc transfusion Code(s): D64.9 - ANEMIA, UNSPECIFIED Qualifiers: Anemia type: unspecified type Qualified Code(s): D64.9 - Anemia, unspecified (5) CKD (chronic kidney disease) Code(s): N18.9 - CHRONIC KIDNEY DISEASE, UNSPECIFIED Qualifiers: Chronic kidney disease stage: stage 4 (severe) Qualified Code(s): N18.4 - Chronic kidney disease, stage 4 (severe) (6) CHF Congestive heart failure Code(s): I50.9 - HEART FAILURE, UNSPECIFIED (7) SBO (small bowel obstruction) Code(s): K56.609 - UNSP INTESTNL OBST, UNSP TO PARTIAL VERSUS COMPLETE OBST (8) Hypercholesterolemia Code(s): E78.00 - PURE HYPERCHOLESTEROLEMIA, UNSPECIFIED
[2017-08-19] MEDS: METRONIDAZOLE 500 MG PREMIXED 500 MG/100 ML MG IVPB SCH ×3 (02:46→18:03)
[2017-08-19] MEDS: HYDROmorphone HCL CARPU-JECT 2 MG/1 ML DISP.SYRIN IVPB PRN ×2 (03:44→16:03)
[2017-08-19 08:03] LABS: BASO % 0.1 % (0-2.0); EOS % 2.2 % (0-4.5); LYMPH % 5.2 % (8-40); MCH 29.8 pg (25.7-33.7); MCHC 33.2 g/dl (32.0-35.9); MEAN CELL VOLUME 89.7 fl (80-96); MEAN PLT VOLUME 7.7 fl (7.5-11.1); MONO % 9.3 % (3.8-10.2); NEUT % 83.2 % (42.8-82.8); PLATELET COUNT 205 K/MM3 (134-434); RBC 3.34 M/mm3 (4.00-5.60); RDW 15.4 % (11.9-15.9); WHITE BLOOD COUNT 10.1 K/mm3 (4.0-10.0)
[2017-08-19 08:27] LABS: ANION GAP 18 (8-16); CALCIUM 8.7 mg/dL (8.5-10.1); CHLORIDE 95 mmol/L (98-107); CO2 24 mmol/L (21-32); GLUCOSE,RANDOM 95 mg/dL (74-106); POTASSIUM 4.5 mmol/L (3.5-5.1); SODIUM 137 mmol/L (136-145)
[2017-08-19 09:27] LABS: BLOOD UREA NITROGEN 107 mg/dL (7-18)
[2017-08-19 09:28] LABS: CREATININE 8.3 mg/dL (0.7-1.3)
[2017-08-19] MEDS: BUDESONIDE/FORMETEROL FUMARATE 160/4.5 mcg INHALER IH SCH (10:00)
[2017-08-19] MEDS: FLUTICASONE PROP 0.05% 16 GM NASAL SPRAY NS SCH ×2 (10:00→22:46)
[2017-08-19] MEDS: CARVEDILOL 12.5 MG TABLET (FP) PO SCH ×2 (10:04→22:44)
[2017-08-19] MEDS: LIPASE/PROTEASE/AMYLASE 36,000 UNIT CAPSULE PO SCH ×3 (10:04→17:59)
[2017-08-19] MEDS: CALCIUM CARBONATE SUSPENSION - 500 MG/5 ML ML PO SCH (10:04)
[2017-08-19] MEDS: PANTOPRAZOLE 40 MG TABLET (FP) PO SCH (10:05)
[2017-08-19] MEDS ORDERED: PT OWN MED DRAWER 7, Y5N ONE ×3 (10:12→22:46)
[2017-08-19] MEDS: TIOTROPIUM BROMIDE 18 MCG/INH (DEVICE W/ 5 CAPSULES) IH SCH (10:22)
--- NOTE | 2017-08-19 11:04 | PN ---
Progress Note, Physician History of Present Illness: 71 yo male with a MMP with history of intermittent constipation. Patient states he had a colonoscopy 5 years previous which was normal. CTscan on 08/17 shows distended stomach and small bowel, contrast was very proximal. Only previous abdominal surgery was an open appendectomy. only complains of discomfort from the NGT. - Current Medication List Current Medications: Active Medications Atorvastatin Calcium (Lipitor -) 20 mg PO HS [facility] Last Admin: 08/18/17 21:24 Dose: Not Given Bisacodyl (Dulcolax Suppository -) 10 mg [place] PRN PRN PRN Reason: CONSTIPATION Last Admin: 08/16/17 21:50 Dose: 10 mg Budesonide/Formoterol Fumarate (Symbicort 160/4.5mcg -) 1 puff IH DAILY [facility] Last Admin: 08/18/17 11:19 Dose: Not Given Calcium Carbonate (Calcium Carb Oral Suspension -) 500 mg PO DAILY [facility] Last Admin: 08/19/17 10:04 Dose: Not Given Carvedilol (Coreg -) 12.5 mg PO BID [facility] Last Admin: 08/19/17 10:04 Dose: Not Given Fluticasone Propionate (Flonase -) 1 spray NS BID [facility] Last Admin: 08/18/17 22:31 Dose: 1 spray Hydromorphone HCl (Dilaudid Injection -) 2 mg IVPB Q4H PRN PRN Reason: PAIN Last Admin: 08/19/17 03:44 Dose: 2 mg Levofloxacin (Levaquin 250 Mg Premixed Ivpb -) 250 mg in 50 mls @ 50 mls/hr IVPB DAILY [facility] Last Admin: 08/18/17 09:48 Dose: 50 mls/hr Metronidazole (Flagyl 500mg Premixed Ivpb -) 500 mg in 100 mls @ 100 mls/hr IVPB Q8H-IV [facility] Last Admin: 08/19/17 02:46 Dose: 100 mls/hr Dextrose/Sodium Chloride (D5-Ns -) 1,000 mls @ 42 mls/hr IV [facility] Last Admin: 08/18/17 15:30 Dose: 42 mls/hr Montelukast Sodium (Singulair -) 10 mg PO HS [facility] Last Admin: 08/18/17 21:24 Dose: Not Given Xopenex Hfa Inhaler (Non-Formulary Med) 1 each IH Q6H PRN PRN Reason: SHORT OF BREATH/WHEEZING Last Admin: 08/11/17 23:06 Dose: 1 each Ondansetron HCl (Zofran Injection) 4 mg IVPUSH Q4H PRN PRN Reason: NAUSEA AND/OR VOMITING Last Admin: 08/18/17 11:20 Dose: 4 mg Pancrelipase (Creon Dr 36,000 Units Capsule) 1 cap PO TIDCM [facility] Last Admin: 08/19/17 10:04 Dose: Not Given Pantoprazole Sodium (Protonix -) 40 mg PO BID [facility] Last Admin: 08/19/17 10:05 Dose: Not Given Tamsulosin HCl (Flomax -) 0.4 mg PO HS [facility] Last Admin: 08/18/17 21:24 Dose: Not Given Tiotropium [place] (Spiriva -) 1 puff IH DAILY [facility] Last Admin: 08/19/17 10:22 Dose: 1 puff Trazodone HCl (Desyrel -) 100 mg PO HS [facility] Last Admin: 08/18/17 21:24 Dose: Not Given Zolpidem Tartrate (Ambien -) 5 mg PO HS [facility] Last Admin: 08/17/17 21:06 Dose: 5 mg - Objective Vital Signs: Vital Signs Temperature 98.1 F 08/19/17 06:00 Pulse Rate 62 08/19/17 10:58 Respiratory Rate 20 08/19/17 06:00 Blood Pressure 102/62 08/19/17 06:00 O2 Sat by Pulse Oximetry (%) 94 L 08/19/17 10:58 Vital Signs Period Temp Pulse Resp BP Sys/Whitaker Pulse Ox Last 24 Hr 97.5 F-98.1 F 62-66 20-20 96-108/50-63 94-94 Intake & Output 08/18/17 08/19/17 08/19/17 23:59 07:59 15:59 Intake Total 0 583 Output Total 350 Balance 0 233 Weight 185 lb 7 oz Intake: IV 483 D5w - 1,000 ml @ 42 mls/ 483 hr IV Q24H [facility] Rx#: [id number] IVPB 100 Oral 0 Output: Gastric Drainage 50 Urine 300 Void 300 Other: Voiding Method Toilet Toilet # Unmeasured Voids Void 2 1 Bowel Movement No Weight Measurement Method [facility] Constitutional: Yes: No Distress, Calm, Obese Eyes: Yes: Conjunctiva Clear, EOM Intact HENT: Yes: Atraumatic, Normocephalic Neck: Yes: Supple, Trachea Midline Cardiovascular: Yes: Regular Rate and Rhythm, Murmur, S1, S2 Respiratory: Yes: Regular, CTA Bilaterally Gastrointestinal: Yes: Soft, Abdomen, Obese, Hypoactive Bowel Sounds. No: Tenderness, Epigastrium, Tenderness, Rebound ...Rectal Exam: Yes: Deferred Genitourinary: No: CVA Tenderness - Left, CVA Tenderness - Right Musculoskeletal: No: Muscle Pain, Muscle Weakness Edema: Yes Integumentary: Yes: Rash Neurological: Yes: Alert, Oriented Psychiatric: Yes: Alert, Oriented Labs: CBC, BMP 08/19/17 06:30 08/19/17 06:30 INR, PTT INR 1.32 (0.82-1.09) H 08/12/17 07:45 - ....Imaging X-ray: Report Reviewed, Image Reviewed (stairstep pattern on upright) Problem List - Problems (1) SBO (small bowel obstruction) Assessment/Plan: 71yo male MMP presents with a partial SBO, h/o appendectomy, recent normal colonoscopy. NPO and IVF hydration Abdominal xray daily to track progress of contrast trend labs for AM will follow for serial exams Family (daughter) and patient are not interested in operative manageemnt Code(s): K56.609 - UNSP INTESTNL OBST, UNSP TO PARTIAL VERSUS COMPLETE OBST (2) Abdominal pain Code(s): R10.9 - UNSPECIFIED ABDOMINAL PAIN Qualifiers: Abdominal location: unspecified location Qualified Code(s): R10.9 - Unspecified abdominal pain (3) Acute diverticulitis Code(s): K57.92 - DVTRCLI OF INTEST, PART UNSP, W/O PERF OR ABSCESS W/O BLEED (4) Anemia Code(s): D64.9 - ANEMIA, UNSPECIFIED Qualifiers: Anemia type: unspecified type Qualified Code(s): D64.9 - Anemia, unspecified (5) Hypercholesterolemia Code(s): E78.00 - PURE HYPERCHOLESTEROLEMIA, UNSPECIFIED (6) CHF Congestive heart failure Code(s): I50.9 - HEART FAILURE, UNSPECIFIED
--- NOTE | 2017-08-19 11:16 | HOSP ---
Physical Examination Vital Signs: Vital Signs Temperature 98.1 F 08/19/17 06:00 Pulse Rate 62 08/19/17 10:58 Respiratory Rate 20 08/19/17 06:00 Blood Pressure 102/62 08/19/17 06:00 O2 Sat by Pulse Oximetry (%) 94 L 08/19/17 10:58 Labs: CBC, BMP 08/19/17 06:30 08/19/17 06:30 Hospitalist Encounter Assessment: Called to evaluate patient for elevated critical BUN/Cr. Discussed findings with patient. Nephrology on case, will see patient to discuss need HD. Further plans to be discussed with patient, thus far he has been refusing HD. Patient is frustrated and anxious will dose x1 ativan 1mg IM. RN to restart fluids, NGT in place with thais outpt
[2017-08-19] MEDS ORDERED: LORazepam 2 MG/ML SDV VIAL IM ONE (11:30)
[2017-08-19] MEDS ORDERED: SODIUM CHLORIDE 250 ML IV STA (13:01)
--- NOTE | 2017-08-19 13:01 | PN ---
Progress Note, Physician History of Present Illness: Pt seen and examined at bedside. He is awake and anxious. He denies shortness of breath. He complains of discomfort from the NG tube. - Current Medication List Current Medications: Active Medications Atorvastatin Calcium (Lipitor -) 20 mg PO HS [facility] Last Admin: 08/18/17 21:24 Dose: Not Given Bisacodyl (Dulcolax Suppository -) 10 mg [place] PRN PRN PRN Reason: CONSTIPATION Last Admin: 08/16/17 21:50 Dose: 10 mg Budesonide/Formoterol Fumarate (Symbicort 160/4.5mcg -) 1 puff IH DAILY [facility] Last Admin: 08/18/17 11:19 Dose: Not Given Calcium Carbonate (Calcium Carb Oral Suspension -) 500 mg PO DAILY [facility] Last Admin: 08/19/17 10:04 Dose: Not Given Carvedilol (Coreg -) 12.5 mg PO BID [facility] Last Admin: 08/19/17 10:04 Dose: Not Given Fluticasone Propionate (Flonase -) 1 spray NS BID [facility] Last Admin: 08/18/17 22:31 Dose: 1 spray Hydromorphone HCl (Dilaudid Injection -) 2 mg IVPB Q4H PRN PRN Reason: PAIN Last Admin: 08/19/17 03:44 Dose: 2 mg Levofloxacin (Levaquin 250 Mg Premixed Ivpb -) 250 mg in 50 mls @ 50 mls/hr IVPB DAILY [facility] Last Admin: 08/18/17 09:48 Dose: 50 mls/hr Metronidazole (Flagyl 500mg Premixed Ivpb -) 500 mg in 100 mls @ 100 mls/hr IVPB Q8H-IV [facility] Last Admin: 08/19/17 12:47 Dose: 100 mls/hr Dextrose/Sodium Chloride (D5-Ns -) 1,000 mls @ 42 mls/hr IV ASDIR [facility] Last Admin: 08/18/17 15:30 Dose: 42 mls/hr Montelukast Sodium (Singulair -) 10 mg PO HS [facility] Last Admin: 08/18/17 21:24 Dose: Not Given Xopenex Hfa Inhaler (Non-Formulary Med) 1 each IH Q6H PRN PRN Reason: SHORT OF BREATH/WHEEZING Last Admin: 08/11/17 23:06 Dose: 1 each Ondansetron HCl (Zofran Injection) 4 mg IVPUSH Q4H PRN PRN Reason: NAUSEA AND/OR VOMITING Last Admin: 08/18/17 11:20 Dose: 4 mg Pancrelipase (Creon Dr 36,000 Units Capsule) 1 cap PO TIDCM [facility] Last Admin: 08/19/17 10:04 Dose: Not Given Pantoprazole Sodium (Protonix -) 40 mg PO BID [facility] Last Admin: 08/19/17 10:05 Dose: Not Given Tamsulosin HCl (Flomax -) 0.4 mg PO HS [facility] Last Admin: 08/18/17 21:24 Dose: Not Given Tiotropium [place] (Spiriva -) 1 puff IH DAILY [facility] Last Admin: 08/19/17 10:22 Dose: 1 puff Trazodone HCl (Desyrel -) 100 mg PO HS [facility] Last Admin: 08/18/17 21:24 Dose: Not Given Zolpidem Tartrate (Ambien -) 5 mg PO HS [facility] Last Admin: 08/17/17 21:06 Dose: 5 mg - Objective Vital Signs: Vital Signs Temperature 98.1 F 08/19/17 06:00 Pulse Rate 62 08/19/17 10:58 Respiratory Rate 20 08/19/17 06:00 Blood Pressure 102/62 08/19/17 06:00 O2 Sat by Pulse Oximetry (%) 94 L 08/19/17 10:58 Constitutional: Yes: Calm Eyes: Yes: Conjunctiva Clear HENT: Yes: Atraumatic Cardiovascular: Yes: S1, S2 Respiratory: Yes: CTA Bilaterally Gastrointestinal: Yes: Soft, Other (ng tube) Genitourinary: Yes: WNL Musculoskeletal: Yes: WNL Edema: Yes Edema: LLE: Trace, RLE: Trace Neurological: Yes: Oriented Psychiatric: Yes: Oriented, Agitated Labs: CBC, BMP 08/19/17 06:30 08/19/17 06:30 INR, PTT INR 1.32 (0.82-1.09) H 08/12/17 07:45 - ....Imaging X-ray: Report Reviewed Problem List - Problems (1) CKD (chronic kidney disease) Code(s): N18.9 - CHRONIC KIDNEY DISEASE, UNSPECIFIED Qualifiers: Chronic kidney disease stage: stage 4 (severe) Qualified Code(s): N18.4 - Chronic kidney disease, stage 4 (severe) (2) Anemia Code(s): D64.9 - ANEMIA, UNSPECIFIED Qualifiers: Anemia type: unspecified type Qualified Code(s): D64.9 - Anemia, unspecified (3) Abdominal pain Code(s): R10.9 - UNSPECIFIED ABDOMINAL PAIN Qualifiers: Abdominal location: unspecified location Qualified Code(s): R10.9 - Unspecified abdominal pain (4) Rectal bleeding Code(s): K62.5 - HEMORRHAGE OF ANUS AND RECTUM (5) Acute exacerbation of COPD with asthma Code(s): J44.1 - CHRONIC OBSTRUCTIVE PULMONARY DISEASE W (ACUTE) EXACERBATION; J45.901 - UNSPECIFIED ASTHMA WITH (ACUTE) EXACERBATION (6) CHF (congestive heart failure) Code(s): I50.9 - HEART FAILURE, UNSPECIFIED Qualifiers: Congestive heart failure type: combined Congestive heart failure chronicity : acute on chronic Qualified Code(s): I50.43 - Acute on chronic combined systolic (congestive) and diastolic (congestive) heart failure Assessment/Plan Current Medications Generic Name Dose Route Start Last Admin Trade Name Freq PRN Reason Stop Dose Admin Atorvastatin Calcium 20 mg 08/10/17 20:15 08/18/17 21:24 Lipitor - PO Not Given HS [facility] Bisacodyl 10 mg 08/13/17 23:06 08/16/17 21:50 Dulcolax Suppository - ND 10 mg PRN PRN Administration CONSTIPATION Budesonide/Formoterol Fumarate 1 puff 08/11/17 10:00 08/18/17 11:19 Symbicort 160/4.5mcg - IH Not Given DAILY [facility] Calcium Carbonate 500 mg 08/11/17 16:30 08/19/17 10:04 Calcium Carb Oral Suspension - PO Not Given DAILY [facility] Carvedilol 12.5 mg 08/12/17 22:00 08/19/17 10:04 Coreg - PO Not Given BID [facility] Fluticasone Propionate 1 spray 08/10/17 22:00 08/18/17 22:31 Flonase - NS 1 spray BID [facility] Administration Hydromorphone HCl 2 mg 08/18/17 09:17 08/19/17 03:44 Dilaudid Injection - IVPB 2 mg Q4H PRN Administration PAIN Levofloxacin 250 mg in 50 mls @ 50 mls/hr 08/17/17 10:00 08/18/17 09:48 Levaquin 250 Mg Premixed Ivpb - IVPB 50 mls/hr DAILY [facility] Administration Metronidazole 500 mg in 100 mls @ 100 mls/hr 08/17/17 18:00 08/19/17 12:47 Flagyl 500mg Premixed Ivpb - IVPB 100 mls/hr Q8H-IV [facility] Administration Dextrose/Sodium Chloride 1,000 mls @ 42 mls/hr 08/18/17 15:15 08/18/17 15:30 D5-Ns - IV 42 mls/hr ASDIR [facility] Administration Montelukast Sodium 10 mg 08/10/17 20:15 08/18/17 21:24 Singulair - PO Not Given HS [facility] Xopenex Hfa Inhaler 1 each 08/10/17 23:14 08/11/17 23:06 Non-Formulary Med IH 1 each Q6H PRN Administration SHORT OF BREATH/WHEEZING Ondansetron HCl 4 mg 08/17/17 09:36 08/18/17 11:20 Zofran Injection IVPUSH 4 mg Q4H PRN Administration NAUSEA AND/OR VOMITING Pancrelipase 1 cap 08/14/17 08:00 08/19/17 10:04 [place] 36,000 Units Capsule PO Not Given TIDCM [facility] Pantoprazole Sodium 40 mg 08/10/17 23:15 08/19/17 10:05 Protonix - PO Not Given BID [facility] Tamsulosin HCl 0.4 mg 08/10/17 20:15 08/18/17 21:24 Flomax - PO Not Given HS [facility] Tiotropium [place] 1 puff 08/11/17 10:00 08/19/17 10:22 Spiriva - IH 1 puff DAILY [facility] Administration Trazodone HCl 100 mg 08/10/17 22:00 08/18/17 21:24 Desyrel - PO Not Given HS [facility] Zolpidem Tartrate 5 mg 08/17/17 19:40 08/17/17 21:06 Ambien - PO 5 mg HS PRN Administration Impression 1. CKD 2. ALAN 3. anemia 4. GI bleed 5. BPH 6. a-fib 7. aortic aneurysm 8. COPD 9. insomnia 10. SBO Plan - renal function is worse - IV was not working and replaced - cont with fluids - repeat labs in am - if he worsens then may need HD - he appears more dehydrated than he was yesterday and he did drain over 2.7 liters of gastric contents - surgery eval - keep NPO - discussed with him and with his daughter at length - keep arb on hold - will follow closely - will evaluate for HD daily Dr Ortega
--- NOTE | 2017-08-19 13:07 | PN ---
Progress Note, Physician History of Present Illness: Events noted. Pt still with no BM. NGT in place, abdominal discomfort. - Current Medication List Current Medications: Active Medications Atorvastatin Calcium (Lipitor -) 20 mg PO HS [facility] Last Admin: 08/18/17 21:24 Dose: Not Given Bisacodyl (Dulcolax Suppository -) 10 mg [place] PRN PRN PRN Reason: CONSTIPATION Last Admin: 08/16/17 21:50 Dose: 10 mg Budesonide/Formoterol Fumarate (Symbicort 160/4.5mcg -) 1 puff IH DAILY [facility] Last Admin: 08/18/17 11:19 Dose: Not Given Calcium Carbonate (Calcium Carb Oral Suspension -) 500 mg PO DAILY [facility] Last Admin: 08/19/17 10:04 Dose: Not Given Carvedilol (Coreg -) 12.5 mg PO BID [facility] Last Admin: 08/19/17 10:04 Dose: Not Given Fluticasone Propionate (Flonase -) 1 spray NS BID [facility] Last Admin: 08/18/17 22:31 Dose: 1 spray Hydromorphone HCl (Dilaudid Injection -) 2 mg IVPB Q4H PRN PRN Reason: PAIN Last Admin: 08/19/17 03:44 Dose: 2 mg Levofloxacin (Levaquin 250 Mg Premixed Ivpb -) 250 mg in 50 mls @ 50 mls/hr IVPB DAILY [facility] Last Admin: 08/18/17 09:48 Dose: 50 mls/hr Metronidazole (Flagyl 500mg Premixed Ivpb -) 500 mg in 100 mls @ 100 mls/hr IVPB Q8H-IV [facility] Last Admin: 08/19/17 12:47 Dose: 100 mls/hr Dextrose/Sodium Chloride (D5-Ns -) 1,000 mls @ 100 mls/hr IV [facility]IR [facility] Sodium Chloride (Normal Saline -) 250 mls @ 500 mls/hr IV [facility]IR [facility] Stop: 08/19/17 13:30 Montelukast Sodium (Singulair -) 10 mg PO HS [facility] Last Admin: 08/18/17 21:24 Dose: Not Given Xopenex Hfa Inhaler (Non-Formulary Med) 1 each IH Q6H PRN PRN Reason: SHORT OF BREATH/WHEEZING Last Admin: 08/11/17 23:06 Dose: 1 each Ondansetron HCl (Zofran Injection) 4 mg IVPUSH Q4H PRN PRN Reason: NAUSEA AND/OR VOMITING Last Admin: 08/18/17 11:20 Dose: 4 mg Pancrelipase (Creon Dr 36,000 Units Capsule) 1 cap PO TIDCM [facility] Last Admin: 08/19/17 10:04 Dose: Not Given Pantoprazole Sodium (Protonix -) 40 mg PO BID [facility] Last Admin: 08/19/17 10:05 Dose: Not Given Tamsulosin HCl (Flomax -) 0.4 mg PO HS [facility] Last Admin: 08/18/17 21:24 Dose: Not Given Tiotropium [place] (Spiriva -) 1 puff IH DAILY [facility] Last Admin: 08/19/17 10:22 Dose: 1 puff Trazodone HCl (Desyrel -) 100 mg PO HS [facility] Last Admin: 08/18/17 21:24 Dose: Not Given Zolpidem Tartrate (Ambien -) 5 mg PO HS [facility] Last Admin: 08/17/17 21:06 Dose: 5 mg - Objective Vital Signs: Vital Signs Temperature 98.1 F 08/19/17 06:00 Pulse Rate 62 08/19/17 10:58 Respiratory Rate 20 08/19/17 06:00 Blood Pressure 102/62 08/19/17 06:00 O2 Sat by Pulse Oximetry (%) 94 L 08/19/17 10:58 Constitutional: Yes: No Distress Neck: Yes: Supple Cardiovascular: Yes: WNL Respiratory: Yes: WNL Gastrointestinal: Yes: Hypoactive Bowel Sounds Neurological: Yes: WNL Labs: CBC, BMP 08/19/17 06:30 08/19/17 06:30 INR, PTT INR 1.32 (0.82-1.09) H 08/12/17 07:45 Problem List - Problems (1) Acute diverticulitis Code(s): K57.92 - DVTRCLI OF INTEST, PART UNSP, W/O PERF OR ABSCESS W/O BLEED (2) CKD (chronic kidney disease) Code(s): N18.9 - CHRONIC KIDNEY DISEASE, UNSPECIFIED Qualifiers: Chronic kidney disease stage: stage 4 (severe) Qualified Code(s): N18.4 - Chronic kidney disease, stage 4 (severe) (3) Rectal bleeding Code(s): K62.5 - HEMORRHAGE OF ANUS AND RECTUM (4) CHF (congestive heart failure) Code(s): I50.9 - HEART FAILURE, UNSPECIFIED Qualifiers: Congestive heart failure type: combined Congestive heart failure chronicity : acute on chronic Qualified Code(s): I50.43 - Acute on chronic combined systolic (congestive) and diastolic (congestive) heart failure (5) SBO (small bowel obstruction) Code(s): K56.609 - UNSP INTESTNL OBST, UNSP TO PARTIAL VERSUS COMPLETE OBST Assessment/Plan 71 y.o. male with hx of CAD s/p CABG, Afib on Eliquis, AV replacement, CKD, COPD , CHF presenting with bloody/dark stools and abdominal pain. Has not been having BMs due to obstruction. NGT draining Diverticulitis Partial SBO GI bleed CKD - worsening renal function Leukocytosis - improved GI bleed Anemia - continue antibiotics for now - may need possible HD, on IV fluids - surgery following - monitor vitals
[2017-08-19] MEDS: LEVOFLOXACIN 250 MG IVPB 250 MG/50 ML MG IVPB SCH (15:06)
--- NOTE | 2017-08-19 15:08 | PN ---
Progress Note, Physician History of Present Illness: Abd pain and distension improving with NGT decompression. - Current Medication List Current Medications: Active Medications Atorvastatin Calcium (Lipitor -) 20 mg PO HS [facility] Last Admin: 08/18/17 21:24 Dose: Not Given Bisacodyl (Dulcolax Suppository -) 10 mg IN PRN PRN PRN Reason: CONSTIPATION Last Admin: 08/16/17 21:50 Dose: 10 mg Budesonide/Formoterol Fumarate (Symbicort 160/4.5mcg -) 1 puff IH DAILY [facility] Last Admin: 08/18/17 11:19 Dose: Not Given Calcium Carbonate (Calcium Carb Oral Suspension -) 500 mg PO DAILY [facility] Last Admin: 08/19/17 10:04 Dose: Not Given Carvedilol (Coreg -) 12.5 mg PO BID [facility] Last Admin: 08/19/17 10:04 Dose: Not Given Fluticasone Propionate (Flonase -) 1 spray NS BID [facility] Last Admin: 08/18/17 22:31 Dose: 1 spray Hydromorphone HCl (Dilaudid Injection -) 2 mg IVPB Q4H PRN PRN Reason: PAIN Last Admin: 08/19/17 03:44 Dose: 2 mg Levofloxacin (Levaquin 250 Mg Premixed Ivpb -) 250 mg in 50 mls @ 50 mls/hr IVPB DAILY [facility] Last Admin: 08/18/17 09:48 Dose: 50 mls/hr Metronidazole (Flagyl 500mg Premixed Ivpb -) 500 mg in 100 mls @ 100 mls/hr IVPB Q8H-IV [facility] Last Admin: 08/19/17 12:47 Dose: 100 mls/hr Dextrose/Sodium Chloride (D5-Ns -) 1,000 mls @ 100 mls/hr IV ASDIR [facility] Montelukast Sodium (Singulair -) 10 mg PO HS [facility] Last Admin: 08/18/17 21:24 Dose: Not Given Xopenex Hfa Inhaler (Non-Formulary Med) 1 each IH Q6H PRN PRN Reason: SHORT OF BREATH/WHEEZING Last Admin: 08/11/17 23:06 Dose: 1 each Ondansetron HCl (Zofran Injection) 4 mg IVPUSH Q4H PRN PRN Reason: NAUSEA AND/OR VOMITING Last Admin: 08/18/17 11:20 Dose: 4 mg Pancrelipase (Creon Dr 36,000 Units Capsule) 1 cap PO TIDCM [facility] Last Admin: 08/19/17 15:00 Dose: Not Given Pantoprazole Sodium (Protonix -) 40 mg PO BID [facility] Last Admin: 08/19/17 10:05 Dose: Not Given Tamsulosin HCl (Flomax -) 0.4 mg PO HS [facility] Last Admin: 08/18/17 21:24 Dose: Not Given Tiotropium [place] (Spiriva -) 1 puff IH DAILY [facility] Last Admin: 08/19/17 10:22 Dose: 1 puff Trazodone HCl (Desyrel -) 100 mg PO HS [facility] Last Admin: 08/18/17 21:24 Dose: Not Given Zolpidem Tartrate (Ambien -) 5 mg PO HS [facility] Last Admin: 08/17/17 21:06 Dose: 5 mg - Objective Vital Signs: Vital Signs Temperature 97.5 F L 08/19/17 10:00 Pulse Rate 62 08/19/17 10:58 Respiratory Rate 20 08/19/17 10:00 Blood Pressure 108/50 08/19/17 10:00 O2 Sat by Pulse Oximetry (%) 94 L 08/19/17 10:58 Constitutional: Yes: No Distress, Calm Neck: Yes: Supple Cardiovascular: Yes: Regular Rate and Rhythm Respiratory: Yes: Regular, Diminished Gastrointestinal: Yes: Distention, Hypoactive Bowel Sounds Edema: Yes Edema: LLE: Trace, RLE: Trace Labs: CBC, BMP 08/19/17 06:30 08/19/17 06:30 INR, PTT INR 1.32 (0.82-1.09) H 08/12/17 07:45 Problem List - Problems (1) Anemia Code(s): D64.9 - ANEMIA, UNSPECIFIED Qualifiers: Anemia type: unspecified type Qualified Code(s): D64.9 - Anemia, unspecified (2) CVD (cerebrovascular disease) Code(s): I67.9 - CEREBROVASCULAR DISEASE, UNSPECIFIED (3) Hx of CABG Code(s): Z95.1 - PRESENCE OF AORTOCORONARY BYPASS GRAFT (4) Hypercholesterolemia Code(s): E78.00 - PURE HYPERCHOLESTEROLEMIA, UNSPECIFIED (5) Presence of permanent cardiac pacemaker Code(s): Z95.0 - PRESENCE OF CARDIAC PACEMAKER (6) Sick sinus syndrome Code(s): I49.5 - SICK SINUS SYNDROME (7) CHF Congestive heart failure Code(s): I50.9 - HEART FAILURE, UNSPECIFIED (8) Abdominal aortic aneurysm (AAA) Code(s): I71.4 - ABDOMINAL AORTIC ANEURYSM, WITHOUT RUPTURE Qualifiers: Presence of rupture: without rupture Qualified Code(s): I71.4 - Abdominal aortic aneurysm, without rupture (9) Ischemic colitis Code(s): K55.9 - VASCULAR DISORDER OF INTESTINE, UNSPECIFIED (10) Rectal bleeding Code(s): K62.5 - HEMORRHAGE OF ANUS AND RECTUM (11) [id number] kidney injury Code(s): N17.9 - ACUTE KIDNEY FAILURE, UNSPECIFIED; N18.9 - CHRONIC KIDNEY DISEASE, UNSPECIFIED Qualifiers: Acute renal failure type: unspecified Chronic kidney disease stage: stage 4 (severe) Qualified Code(s): N17.9 - Acute kidney failure, unspecified; N18.4 - Chronic kidney disease, stage 4 (severe); N18.4 - Chronic kidney disease , stage 4 (severe); N18.4 - Chronic kidney disease, stage 4 (severe); N18.4 - Chronic kidney disease, stage 4 (severe) Assessment/Plan 1. Rectal bleed, underlying diverticulitis now with partial SBO 2. CAD s/p CABG, angina pectoris 3. Persistent AF with underlying PPM for sick sinus syndrome 4. Acute on CKD 5. CVA/TIA 6. COPD 7. TAA and AAA PLAN: 1. GI to follow for further management including NGT, not interested in surgical intervention, continue abx course 2. Monitor renal function, gentle hydration 3. Continue Carvedilol 12.5 bid as tolerated and if able to take PO 4. Continue Atorvastatin 20 qhs if able to take PO 5. Monitor CBC and transfuse PRBC as needed 6. TAA and AAA likely also needs surveillance Further plans are to follow. Importance of above issues emphasized to patient. Currently he is off Eliquis, but will need to resume once cleared after current event with the diverticulitis and partial SBO
[2017-08-19 17:46] LABS: URINE APPEARANCE SLCLOUDY; URINE BILIRUBIN NEGATIVE (NEGATIVE); URINE BLOOD NEGATIVE (NEGATIVE); URINE COLOR AMBER; URINE GLUCOSE (UA) NEGATIVE (NEGATIVE); URINE KETONE NEGATIVE (NEGATIVE); URINE NITRITE NEGATIVE (NEGATIVE); URINE UROBILINOGEN NEGATIVE mg/dL (0.2-1.0)
[2017-08-19 17:48] LABS: URINE LEUK ESTERASE 1+ (NEGATIVE); URINE PROTEIN 2+ (NEGATIVE)
[2017-08-19 17:57] LABS: EPI CELLS RARE /HPF (FEW); URINE BACTERIA RARE /hpf (NONE SEEN); URINE MUCUS RARE
--- NOTE | 2017-08-19 18:29 | PN ---
GI Progress Note Subjective: patient continue to have abdominal pain, GOMCO suction minimal return since &Am today. Only 50cc. He has continue abdominal pain needing Dilaudid. FUA revealed dilated loops of small bowel consistent with small bowel obstruction - Objective Vital Signs: Vital Signs Temperature 97.5 F L 08/19/17 10:00 Pulse Rate 62 08/19/17 10:58 Respiratory Rate 20 08/19/17 10:00 Blood Pressure 108/50 08/19/17 10:00 O2 Sat by Pulse Oximetry (%) 94 L 08/19/17 10:58 Constitutional: Obese Eyes: Yes: Conjunctiva Clear HENT: Yes: Normocephalic Cardiovascular: Yes: Regular Rate and Rhythm Respiratory: Yes: CTA Bilaterally Gastrointestinal Inspection: Yes: Distention ...Auscultate: Yes: Normoactive Bowel Sounds ...Palpate: Yes: Soft. No: Firm/Rigid, Guarding, Hepatomegaly, Mass, Pulsatile Mass, Splenomegaly, Tenderness ...Percussion: Yes: Tympanitic Labs: CBC, BMP 08/19/17 06:30 08/19/17 06:30 INR, PTT INR 1.32 (0.82-1.09) H 08/12/17 07:45 - ....Imaging X-ray: Image Reviewed (--FUA--small bowel obstruction) Problem List - Problems (1) Abdominal pain Assessment/Plan: mild E> IV Tylenol instead of dilaudid Code(s): R10.9 - UNSPECIFIED ABDOMINAL PAIN Qualifiers: Abdominal location: unspecified location Qualified Code(s): R10.9 - Unspecified abdominal pain (2) SBO (small bowel obstruction) Assessment/Plan: R> continue NGT surgical follow-up serial FUA Code(s): K56.609 - UNSP INTESTNL OBST, UNSP TO PARTIAL VERSUS COMPLETE OBST
[2017-08-19] MEDS: DEXTROSE 5%-NORMAL SALINE 1,000 ML IV SCH (19:36)
[2017-08-19] MEDS: ACETAMINOPHEN 1000 MG/100 ML VIAL (NON FORMULARY) IVPB PRN (19:57)
--- NOTE | 2017-08-19 20:15 | PN ---
Progress Note, Physician History of Present Illness: pain better - Current Medication List Current Medications: Active Medications Acetaminophen (Ofirmev Injection -) 1,000 mg IVPB Q6H PRN PRN Reason: FEVER OR PAIN Last Admin: 08/19/17 19:57 Dose: 1,000 mg Atorvastatin Calcium (Lipitor -) 20 mg PO HS [facility] Last Admin: 08/18/17 21:24 Dose: Not Given Budesonide/Formoterol Fumarate (Symbicort 160/4.5mcg -) 1 puff IH DAILY [facility] Last Admin: 08/19/17 10:00 Dose: 1 puff Calcium Carbonate (Calcium Carb Oral Suspension -) 500 mg PO DAILY [facility] Last Admin: 08/19/17 10:04 Dose: Not Given Carvedilol (Coreg -) 12.5 mg PO BID [facility] Last Admin: 08/19/17 10:04 Dose: Not Given Fluticasone Propionate (Flonase -) 1 spray NS BID [facility] Last Admin: 08/19/17 10:00 Dose: 1 spray Levofloxacin (Levaquin 250 Mg Premixed Ivpb -) 250 mg in 50 mls @ 50 mls/hr IVPB DAILY [facility] Last Admin: 08/19/17 15:06 Dose: 50 mls/hr Metronidazole (Flagyl 500mg Premixed Ivpb -) 500 mg in 100 mls @ 100 mls/hr IVPB Q8H-IV [facility] Last Admin: 08/19/17 18:03 Dose: 100 mls/hr Dextrose/Sodium Chloride (D5-Ns -) 1,000 mls @ 100 mls/hr IV ASDIR [facility] Last Admin: 08/19/17 19:36 Dose: 100 mls/hr Lorazepam (Ativan Injection -) 1 mg IVPUSH DAILY PRN PRN Reason: ANXIETY Stop: 08/23/17 23:59 Montelukast Sodium (Singulair -) 10 mg PO HS [facility] Last Admin: 08/18/17 21:24 Dose: Not Given Xopenex Hfa Inhaler (Non-Formulary Med) 1 each IH Q6H PRN PRN Reason: SHORT OF BREATH/WHEEZING Last Admin: 08/11/17 23:06 Dose: 1 each Ondansetron HCl (Zofran Injection) 4 mg IVPUSH Q4H PRN PRN Reason: NAUSEA AND/OR VOMITING Last Admin: 08/18/17 11:20 Dose: 4 mg Pancrelipase (Creon Dr 36,000 Units Capsule) 1 cap PO TIDCM [facility] Last Admin: 08/19/17 17:59 Dose: Not Given Pantoprazole Sodium (Protonix -) 40 mg PO BID [facility] Last Admin: 08/19/17 10:05 Dose: Not Given Tamsulosin HCl (Flomax -) 0.4 mg PO HS [facility] Last Admin: 08/18/17 21:24 Dose: Not Given Tiotropium [place] (Spiriva -) 1 puff IH DAILY [facility] Last Admin: 08/19/17 10:22 Dose: 1 puff Trazodone HCl (Desyrel -) 100 mg PO HS [facility] Last Admin: 08/18/17 21:24 Dose: Not Given - Objective Vital Signs: Vital Signs Temperature 97.5 F L 08/19/17 10:00 Pulse Rate 62 08/19/17 10:58 Respiratory Rate 20 08/19/17 10:00 Blood Pressure 108/50 08/19/17 10:00 O2 Sat by Pulse Oximetry (%) 95 08/19/17 20:05 Constitutional: Yes: No Distress HENT: Yes: Atraumatic Neck: Yes: Supple Cardiovascular: Yes: Regular Rate and Rhythm Respiratory: Yes: CTA Bilaterally Gastrointestinal: Yes: Hypoactive Bowel Sounds Extremities: Yes: WNL Neurological: Yes: Alert, Oriented Labs: CBC, BMP 08/19/17 06:30 08/19/17 06:30 INR, PTT INR 1.32 (0.82-1.09) H 08/12/17 07:45 Problem List - Problems (1) Rectal bleeding Assessment/Plan: resolved Code(s): K62.5 - HEMORRHAGE OF ANUS AND RECTUM (2) CHF (congestive heart failure) Assessment/Plan: stable no sob Code(s): I50.9 - HEART FAILURE, UNSPECIFIED Qualifiers: Congestive heart failure type: combined Congestive heart failure chronicity : acute on chronic Qualified Code(s): I50.43 - Acute on chronic combined systolic (congestive) and diastolic (congestive) heart failure (3) Acute diverticulitis Assessment/Plan: on iv abx id on board Code(s): K57.92 - DVTRCLI OF INTEST, PART UNSP, W/O PERF OR ABSCESS W/O BLEED (4) Anemia Assessment/Plan: monitor s/p prbc transfusion Code(s): D64.9 - ANEMIA, UNSPECIFIED Qualifiers: Anemia type: unspecified type Qualified Code(s): D64.9 - Anemia, unspecified (5) CKD (chronic kidney disease) Assessment/Plan: monitor renal on board Code(s): N18.9 - CHRONIC KIDNEY DISEASE, UNSPECIFIED Qualifiers: Chronic kidney disease stage: stage 4 (severe) Qualified Code(s): N18.4 - Chronic kidney disease, stage 4 (severe) (6) CHF Congestive heart failure Code(s): I50.9 - HEART FAILURE, UNSPECIFIED (7) SBO (small bowel obstruction) Assessment/Plan: npo, ivf.. iv pain meds ngt Code(s): K56.609 - UNSP INTESTNL OBST, UNSP TO PARTIAL VERSUS COMPLETE OBST (8) Hypercholesterolemia Code(s): E78.00 - PURE HYPERCHOLESTEROLEMIA, UNSPECIFIED
[2017-08-19] MEDS: PANTOPRAZOLE SODIUM 40 MG VIAL IVPUSH SCH (20:55)
[2017-08-19] MEDS: MONTELUKAST NA 10 MG TABLET PO SCH (22:44)
[2017-08-19] MEDS: TAMSULOSIN HCL 0.4 MG CAP.ER.24H (FP) PO SCH (22:44)
[2017-08-19] MEDS: traZODone HCL 100 MG TABLET (FP) PO SCH (22:44)
[2017-08-19] MEDS: ATORVASTATIN CA 20 MG TABLET (FP) PO SCH (22:44)
[2017-08-20] MEDS: LORazepam 2 MG/ML SDV VIAL IVPUSH PRN ×2 (00:42→14:47)
[2017-08-20] MEDS: METRONIDAZOLE 500 MG PREMIXED 500 MG/100 ML MG IVPB SCH ×3 (02:35→18:04)
[2017-08-20] MEDS: ACETAMINOPHEN 1000 MG/100 ML VIAL (NON FORMULARY) IVPB PRN ×2 (03:06→15:38)
[2017-08-20] MEDS: DEXTROSE 5%-NORMAL SALINE 1,000 ML IV SCH (05:42)
[2017-08-20 07:28] LABS: BASO % 0.3 % (0-2.0); EOS % 1.6 % (0-4.5); HEMATOCRIT 25.5 % (35.4-49); HEMOGLOBIN 8.3 GM/dL (11.7-16.9); LYMPH % 3.7 % (8-40); MCH 29.7 pg (25.7-33.7); MCHC 32.5 g/dl (32.0-35.9); MEAN CELL VOLUME 91.6 fl (80-96); MEAN PLT VOLUME 7.9 fl (7.5-11.1); MONO % 7.7 % (3.8-10.2); NEUT % 86.7 % (42.8-82.8); PLATELET COUNT 172 K/MM3 (134-434); RBC 2.79 M/mm3 (4.00-5.60); RDW 16.1 % (11.9-15.9); WHITE BLOOD COUNT 9.8 K/mm3 (4.0-10.0)
[2017-08-20 07:55] LABS: ALBUMIN 2.1 g/dl (3.4-5.0); CALCIUM 7.1 mg/dL (8.5-10.1); CHLORIDE 102 mmol/L (98-107); POTASSIUM 3.5 mmol/L (3.5-5.1); SODIUM 140 mmol/L (136-145)
[2017-08-20 08:09] LABS: ALK PHOS 57 U/L (45-117); ANION GAP 16 (8-16); BILIRUBIN,TOTAL 0.4 mg/dL (0.2-1.0); CO2 22 mmol/L (21-32); GLUCOSE,RANDOM 210 mg/dL (74-106); SGOT/AST 16 U/L (15-37); SGPT/ALT 12 U/L (12-78); TOT PROT 4.8 g/dl (6.4-8.2)
[2017-08-20] MEDS: LIPASE/PROTEASE/AMYLASE 36,000 UNIT CAPSULE PO SCH ×3 (08:29→17:00)
[2017-08-20 08:39] LABS: BLOOD UREA NITROGEN 112 mg/dL (7-18); CREATININE 9.1 mg/dL (0.7-1.3)
[2017-08-20] MEDS: CARVEDILOL 12.5 MG TABLET (FP) PO SCH ×2 (09:55→21:32)
[2017-08-20] MEDS: CALCIUM CARBONATE SUSPENSION - 500 MG/5 ML ML PO SCH (09:55)
[2017-08-20] MEDS ORDERED: PT OWN MED DRAWER 7, Y5N ONE ×2 (09:57→21:41)
[2017-08-20] MEDS: LEVOFLOXACIN 250 MG IVPB 250 MG/50 ML MG IVPB SCH (09:58)
[2017-08-20] MEDS: TIOTROPIUM BROMIDE 18 MCG/INH (DEVICE W/ 5 CAPSULES) IH SCH (09:59)
[2017-08-20] MEDS: FLUTICASONE PROP 0.05% 16 GM NASAL SPRAY NS SCH ×2 (09:59→22:07)
[2017-08-20] MEDS: PANTOPRAZOLE SODIUM 40 MG VIAL IVPUSH SCH (09:59)
--- NOTE | 2017-08-20 12:52 | PN ---
Progress Note, Physician History of Present Illness: Abd pain and distension improving with NGT decompression. - Current Medication List Current Medications: Active Medications Acetaminophen (Ofirmev Injection -) 1,000 mg IVPB Q6H PRN PRN Reason: FEVER OR PAIN Last Admin: 08/20/17 03:06 Dose: 1,000 mg Atorvastatin Calcium (Lipitor -) 20 mg PO HS [facility] Last Admin: 08/19/17 22:44 Dose: Not Given Budesonide/Formoterol Fumarate (Symbicort 160/4.5mcg -) 1 puff IH DAILY [facility] Last Admin: 08/19/17 10:00 Dose: 1 puff Calcium Carbonate (Calcium Carb Oral Suspension -) 500 mg PO DAILY [facility] Last Admin: 08/20/17 09:55 Dose: Not Given Carvedilol (Coreg -) 12.5 mg PO BID [facility] Last Admin: 08/20/17 09:55 Dose: Not Given Fluticasone Propionate (Flonase -) 1 spray NS BID [facility] Last Admin: 08/20/17 09:59 Dose: 1 spray Levofloxacin (Levaquin 250 Mg Premixed Ivpb -) 250 mg in 50 mls @ 50 mls/hr IVPB DAILY [facility] Last Admin: 08/20/17 09:58 Dose: 50 mls/hr Metronidazole (Flagyl 500mg Premixed Ivpb -) 500 mg in 100 mls @ 100 mls/hr IVPB Q8H-IV [facility] Last Admin: 08/20/17 10:47 Dose: 100 mls/hr Dextrose/Sodium Chloride (D5-Ns -) 1,000 mls @ 100 mls/hr IV ASDIR [facility] Last Admin: 08/20/17 05:42 Dose: 100 mls/hr Lorazepam (Ativan Injection -) 1 mg IVPUSH DAILY PRN PRN Reason: ANXIETY Stop: 08/23/17 23:59 Last Admin: 08/20/17 00:42 Dose: 1 mg Montelukast Sodium (Singulair -) 10 mg PO HS [facility] Last Admin: 08/19/17 22:44 Dose: Not Given Xopenex Hfa Inhaler (Non-Formulary Med) 1 each IH Q6H PRN PRN Reason: SHORT OF BREATH/WHEEZING Last Admin: 08/11/17 23:06 Dose: 1 each Ondansetron HCl (Zofran Injection) 4 mg IVPUSH Q4H PRN PRN Reason: NAUSEA AND/OR VOMITING Last Admin: 08/18/17 11:20 Dose: 4 mg Pancrelipase (Creon Dr 36,000 Units Capsule) 1 cap PO TIDCM [facility] Last Admin: 08/20/17 11:31 Dose: Not Given Pantoprazole Sodium (Protonix Iv) 40 mg IVPUSH DAILY [facility] Last Admin: 08/20/17 09:59 Dose: 40 mg Tamsulosin HCl (Flomax -) 0.4 mg PO [facility] Last Admin: 08/19/17 22:44 Dose: Not Given Tiotropium [place] (Spiriva -) 1 puff IH DAILY [facility] Last Admin: 08/20/17 09:59 Dose: 1 puff Trazodone HCl (Desyrel -) 100 mg PO [facility] Last Admin: 08/19/17 22:44 Dose: Not Given - Objective Vital Signs: Vital Signs Temperature 98 F 08/20/17 08:58 Pulse Rate 61 08/20/17 08:58 Respiratory Rate 20 08/20/17 08:58 Blood Pressure 96/60 08/20/17 08:58 O2 Sat by Pulse Oximetry (%) 95 08/20/17 05:20 Constitutional: Yes: No Distress, Calm Neck: Yes: Supple Cardiovascular: Yes: Regular Rate and Rhythm Respiratory: Yes: Regular, Diminished Gastrointestinal: Yes: Soft, Distention, Hypoactive Bowel Sounds Edema: Yes Edema: LLE: Trace, RLE: Trace Labs: CBC, BMP 08/20/17 06:40 08/20/17 06:40 INR, PTT INR 1.32 (0.82-1.09) H 08/12/17 07:45 - ....Imaging X-ray: Report Reviewed (Resolving SBO) Problem List - Problems (1) Anemia Code(s): D64.9 - ANEMIA, UNSPECIFIED Qualifiers: Anemia type: unspecified type Qualified Code(s): D64.9 - Anemia, unspecified (2) CVD (cerebrovascular disease) Code(s): I67.9 - CEREBROVASCULAR DISEASE, UNSPECIFIED (3) Hx of CABG Code(s): Z95.1 - PRESENCE OF AORTOCORONARY BYPASS GRAFT (4) Hypercholesterolemia Code(s): E78.00 - PURE HYPERCHOLESTEROLEMIA, UNSPECIFIED (5) Presence of permanent cardiac pacemaker Code(s): Z95.0 - PRESENCE OF CARDIAC PACEMAKER (6) Sick sinus syndrome Code(s): I49.5 - SICK SINUS SYNDROME (7) CHF Congestive heart failure Code(s): I50.9 - HEART FAILURE, UNSPECIFIED (8) Abdominal aortic aneurysm (AAA) Code(s): I71.4 - ABDOMINAL AORTIC ANEURYSM, WITHOUT RUPTURE Qualifiers: Presence of rupture: without rupture Qualified Code(s): I71.4 - Abdominal aortic aneurysm, without rupture (9) Ischemic colitis Code(s): K55.9 - VASCULAR DISORDER OF INTESTINE, UNSPECIFIED (10) Rectal bleeding Code(s): K62.5 - HEMORRHAGE OF ANUS AND RECTUM (11) Rchzk-je-rzhpviw kidney injury Code(s): N17.9 - ACUTE KIDNEY FAILURE, UNSPECIFIED; N18.9 - CHRONIC KIDNEY DISEASE, UNSPECIFIED Qualifiers: Acute renal failure type: unspecified Chronic kidney disease stage: stage 4 (severe) Qualified Code(s): N17.9 - Acute kidney failure, unspecified; N18.4 - Chronic kidney disease, stage 4 (severe); N18.4 - Chronic kidney disease , stage 4 (severe); N18.4 - Chronic kidney disease, stage 4 (severe); N18.4 - Chronic kidney disease, stage 4 (severe) Assessment/Plan 1. Rectal bleed, underlying diverticulitis now with partial SBO resolving 2. CAD s/p CABG, angina pectoris 3. Persistent AF with underlying PPM for sick sinus syndrome 4. Acute on CKD 5. CVA/TIA 6. COPD 7. TAA and AAA PLAN: 1. GI to follow for further management including NGT, not interested in surgical intervention, continue abx course 2. Monitor renal function, gentle hydration 3. Continue Carvedilol 12.5 bid as tolerated and if able to take PO 4. Continue Atorvastatin 20 qhs if able to take PO 5. Monitor CBC and transfuse PRBC as needed 6. TAA and AAA likely also needs surveillance Further plans are to follow. Importance of above issues emphasized to patient. Currently he is off Eliquis, but will need to resume once cleared after resolution of rectal bleed, diverticulitis and partial SBO
[2017-08-20] MEDS: BUDESONIDE/FORMETEROL FUMARATE 160/4.5 mcg INHALER IH SCH (13:11)
--- NOTE | 2017-08-20 14:38 | PN ---
Progress Note, Physician History of Present Illness: Pt had 3 BMs today. States he is anxious, frustrated. No new complaints. - Current Medication List Current Medications: Active Medications Acetaminophen (Ofirmev Injection -) 1,000 mg IVPB Q6H PRN PRN Reason: FEVER OR PAIN Last Admin: 08/20/17 03:06 Dose: 1,000 mg Atorvastatin Calcium (Lipitor -) 20 mg PO HS [facility] Last Admin: 08/19/17 22:44 Dose: Not Given Budesonide/Formoterol Fumarate (Symbicort 160/4.5mcg -) 1 puff IH DAILY [facility] Last Admin: 08/20/17 13:11 Dose: Not Given Calcium Carbonate (Calcium Carb Oral Suspension -) 500 mg PO DAILY [facility] Last Admin: 08/20/17 09:55 Dose: Not Given Carvedilol (Coreg -) 12.5 mg PO BID [facility] Last Admin: 08/20/17 09:55 Dose: Not Given Fluticasone Propionate (Flonase -) 1 spray NS BID [facility] Last Admin: 08/20/17 09:59 Dose: 1 spray Levofloxacin (Levaquin 250 Mg Premixed Ivpb -) 250 mg in 50 mls @ 50 mls/hr IVPB DAILY [facility] Last Admin: 08/20/17 09:58 Dose: 50 mls/hr Metronidazole (Flagyl 500mg Premixed Ivpb -) 500 mg in 100 mls @ 100 mls/hr IVPB Q8H-IV [facility] Last Admin: 08/20/17 10:47 Dose: 100 mls/hr Dextrose/Sodium Chloride (D5-Ns -) 1,000 mls @ 100 mls/hr IV ASDIR [facility] Last Admin: 08/20/17 05:42 Dose: 100 mls/hr Lorazepam (Ativan Injection -) 1 mg IVPUSH DAILY PRN PRN Reason: ANXIETY Stop: 08/23/17 23:59 Last Admin: 08/20/17 00:42 Dose: 1 mg Montelukast Sodium (Singulair -) 10 mg PO HS [facility] Last Admin: 08/19/17 22:44 Dose: Not Given Xopenex Hfa Inhaler (Non-Formulary Med) 1 each IH Q6H PRN PRN Reason: SHORT OF BREATH/WHEEZING Last Admin: 08/11/17 23:06 Dose: 1 each Ondansetron HCl (Zofran Injection) 4 mg IVPUSH Q4H PRN PRN Reason: NAUSEA AND/OR VOMITING Last Admin: 08/18/17 11:20 Dose: 4 mg Pancrelipase (Creon Dr 36,000 Units Capsule) 1 cap PO TIDCM [facility] Last Admin: 08/20/17 11:31 Dose: Not Given Pantoprazole Sodium (Protonix Iv) 40 mg IVPUSH DAILY [facility] Last Admin: 08/20/17 09:59 Dose: 40 mg Tamsulosin HCl (Flomax -) 0.4 mg PO HS [facility] Last Admin: 08/19/17 22:44 Dose: Not Given Tiotropium [place] (Spiriva -) 1 puff IH DAILY [facility] Last Admin: 08/20/17 09:59 Dose: 1 puff Trazodone HCl (Desyrel -) 100 mg PO [facility] Last Admin: 08/19/17 22:44 Dose: Not Given - Objective Vital Signs: Vital Signs Temperature 98.3 F 08/20/17 13:54 Pulse Rate 61 08/20/17 13:54 Respiratory Rate 18 08/20/17 13:54 Blood Pressure 109/60 08/20/17 13:54 O2 Sat by Pulse Oximetry (%) 95 08/20/17 05:20 Constitutional: Yes: No Distress Cardiovascular: Yes: Regular Rate and Rhythm Respiratory: Yes: Regular Gastrointestinal: Yes: Soft, Hypoactive Bowel Sounds Integumentary: Yes: WNL Neurological: Yes: Alert, Oriented Labs: CBC, BMP 08/20/17 06:40 08/20/17 06:40 INR, PTT INR 1.32 (0.82-1.09) H 08/12/17 07:45 Problem List - Problems (1) Acute diverticulitis Code(s): K57.92 - DVTRCLI OF INTEST, PART UNSP, W/O PERF OR ABSCESS W/O BLEED (2) CKD (chronic kidney disease) Code(s): N18.9 - CHRONIC KIDNEY DISEASE, UNSPECIFIED Qualifiers: Chronic kidney disease stage: stage 4 (severe) Qualified Code(s): N18.4 - Chronic kidney disease, stage 4 (severe) (3) Rectal bleeding Code(s): K62.5 - HEMORRHAGE OF ANUS AND RECTUM (4) CHF (congestive heart failure) Code(s): I50.9 - HEART FAILURE, UNSPECIFIED Qualifiers: Congestive heart failure type: combined Congestive heart failure chronicity : acute on chronic Qualified Code(s): I50.43 - Acute on chronic combined systolic (congestive) and diastolic (congestive) heart failure (5) SBO (small bowel obstruction) Code(s): K56.609 - UNSP INTESTNL OBST, UNSP TO PARTIAL VERSUS COMPLETE OBST Assessment/Plan 71 y.o. male with hx of CAD s/p CABG, Afib on Eliquis, AV replacement, CKD, COPD , CHF presented with bloody/dark stools and abdominal pain. Has not been having BMs due to SB obstruction. NGT draining. Had 3 BMs today. Diverticulitis Partial SBO GI bleed CKD - worsening renal function Leukocytosis - improved GI bleed Anemia - continue antibiotics - renal function being monitored - surgery following - monitor vitals
[2017-08-20] MEDS ORDERED: DEXTROSE 5%-NORMAL SALINE 1,000 ML IV SCH (16:15)
--- NOTE | 2017-08-20 16:15 | PN ---
Progress Note, Physician Chief Complaint: small bowel obstruction History of Present Illness: 71 yo male with a MMP with history of intermittent constipation. Patient states he had a colonoscopy 5 years previous which was normal. CTscan on 08/17 shows distended stomach and small bowel, contrast was very proximal. Only previous abdominal surgery was an open appendectomy. only complains of discomfort from the NGT, reports 3 BM and flatus. - Current Medication List Current Medications: Active Medications Acetaminophen (Ofirmev Injection -) 1,000 mg IVPB Q6H PRN PRN Reason: FEVER OR PAIN Last Admin: 08/20/17 15:38 Dose: 1,000 mg Atorvastatin Calcium (Lipitor -) 20 mg PO HS [facility] Last Admin: 08/19/17 22:44 Dose: Not Given Budesonide/Formoterol Fumarate (Symbicort 160/4.5mcg -) 1 puff IH DAILY [facility] Last Admin: 08/20/17 13:11 Dose: Not Given Calcium Carbonate (Calcium Carb Oral Suspension -) 500 mg PO DAILY [facility] Last Admin: 08/20/17 09:55 Dose: Not Given Carvedilol (Coreg -) 12.5 mg PO BID [facility] Last Admin: 08/20/17 09:55 Dose: Not Given Fluticasone Propionate (Flonase -) 1 spray NS BID [facility] Last Admin: 08/20/17 09:59 Dose: 1 spray Levofloxacin (Levaquin 250 Mg Premixed Ivpb -) 250 mg in 50 mls @ 50 mls/hr IVPB DAILY [facility] Last Admin: 08/20/17 09:58 Dose: 50 mls/hr Metronidazole (Flagyl 500mg Premixed Ivpb -) 500 mg in 100 mls @ 100 mls/hr IVPB Q8H-IV [facility] Last Admin: 08/20/17 10:47 Dose: 100 mls/hr Dextrose/Sodium Chloride (D5-Ns -) 1,000 mls @ 100 mls/hr IV ASDIR [facility] Last Admin: 08/20/17 05:42 Dose: 100 mls/hr Lorazepam (Ativan Injection -) 1 mg IVPUSH DAILY PRN PRN Reason: ANXIETY Stop: 08/23/17 23:59 Last Admin: 08/20/17 14:47 Dose: 1 mg Montelukast Sodium (Singulair -) 10 mg PO HS [facility] Last Admin: 08/19/17 22:44 Dose: Not Given Xopenex Hfa Inhaler (Non-Formulary Med) 1 each IH Q6H PRN PRN Reason: SHORT OF BREATH/WHEEZING Last Admin: 08/11/17 23:06 Dose: 1 each Ondansetron HCl (Zofran Injection) 4 mg IVPUSH Q4H PRN PRN Reason: NAUSEA AND/OR VOMITING Last Admin: 08/18/17 11:20 Dose: 4 mg Pancrelipase (Creon Dr 36,000 Units Capsule) 1 cap PO TIDCM [facility] Last Admin: 08/20/17 11:31 Dose: Not Given Pantoprazole Sodium (Protonix Iv) 40 mg IVPUSH DAILY [facility] Last Admin: 08/20/17 09:59 Dose: 40 mg Tamsulosin HCl (Flomax -) 0.4 mg PO HS [facility] Last Admin: 08/19/17 22:44 Dose: Not Given Tiotropium [place] (Spiriva -) 1 puff IH DAILY [facility] Last Admin: 08/20/17 09:59 Dose: 1 puff Trazodone HCl (Desyrel -) 100 mg PO [facility] Last Admin: 08/19/17 22:44 Dose: Not Given - Objective Vital Signs: Vital Signs Temperature 98.3 F 08/20/17 13:54 Pulse Rate 61 08/20/17 13:54 Respiratory Rate 18 08/20/17 13:54 Blood Pressure 109/60 08/20/17 13:54 O2 Sat by Pulse Oximetry (%) 95 08/20/17 05:20 Vital Signs Period Temp Pulse Resp BP Sys/Whitaker Pulse Ox Last 24 Hr 98 F-98.3 F 60-62 18-20 96-109/52-63 95-95 Intake & Output 08/20/17 08/20/17 08/20/17 07:59 15:59 23:59 Intake Total 1200 150 Output Total 1200 200 Balance 0 -50 Weight 180 lb 9 oz Intake: IV 1100 D5-Ns - 1,000 ml @ 100 1100 mls/hr IV ASDIR [facility] Rx#: [id number] IVPB 100 150 Oral 0 Output: Gastric Drainage 1200 200 Other: Voiding Method Toilet Toilet # Unmeasured Voids Void 1 Bowel Movement Yes # Bowel Movements 1 Weight Measurement Method Built in [facility] Constitutional: Yes: Well Nourished, No Distress, Calm Eyes: Yes: Conjunctiva Clear, EOM Intact HENT: Yes: Atraumatic, Normocephalic Neck: Yes: Supple, Trachea Midline Cardiovascular: Yes: Regular Rate and Rhythm, S1, S2 Respiratory: Yes: Regular, CTA Bilaterally Gastrointestinal: Yes: Normal Bowel Sounds, Abdomen, Obese, Distention, Tenderness (minimal tenderness in LQ bilateral). No: Ascites Genitourinary: No: CVA Tenderness - Left, CVA Tenderness - Right Edema: Yes Edema: LLE: 2+, RLE: 2+ Peripheral Pulses WNL: Yes Peripheral Pulses: Left Radial: 2+, Right Radial: 2+, Left Doralis Pedis: 2+, Right Dorsalis Pedis: 2+, Left Femoral: 2+, Right Femoral: 2+ Neurological: Yes: Alert, Oriented Psychiatric: Yes: Alert, Oriented Labs: CBC, BMP 08/20/17 06:40 08/20/17 06:40 INR, PTT INR 1.32 (0.82-1.09) H 08/12/17 07:45 - ....Imaging X-ray: Report Reviewed, Image Reviewed (inproved distension) Problem List - Problems (1) SBO (small bowel obstruction) Assessment/Plan: 71yo male MMP presents with a partial SBO, h/o appendectomy, recent normal colonoscopy. Strict NPO and IVF hydration NGT discontinued Abdominal xray daily to track progress of contrast trend labs for AM will follow for serial exams Code(s): K56.609 - UNSP INTESTNL OBST, UNSP TO PARTIAL VERSUS COMPLETE OBST (2) Abdominal pain Code(s): R10.9 - UNSPECIFIED ABDOMINAL PAIN Qualifiers: Abdominal location: unspecified location Qualified Code(s): R10.9 - Unspecified abdominal pain (3) Acute diverticulitis Code(s): K57.92 - DVTRCLI OF INTEST, PART UNSP, W/O PERF OR ABSCESS W/O BLEED (4) Anemia Code(s): D64.9 - ANEMIA, UNSPECIFIED Qualifiers: Anemia type: unspecified type Qualified Code(s): D64.9 - Anemia, unspecified (5) Hypercholesterolemia Code(s): E78.00 - PURE HYPERCHOLESTEROLEMIA, UNSPECIFIED (6) CHF Congestive heart failure Code(s): I50.9 - HEART FAILURE, UNSPECIFIED
[2017-08-20] MEDS ORDERED: SODIUM CHLORIDE 500 ML IV STA (16:22)
--- NOTE | 2017-08-20 16:22 | PN ---
Progress Note, Physician History of Present Illness: Pt seen and examined at bedside. He is agitated. He denies shortness of breath. He complains of discomfort from NG tube. - Current Medication List Current Medications: Active Medications Acetaminophen (Ofirmev Injection -) 1,000 mg IVPB Q6H PRN PRN Reason: FEVER OR PAIN Last Admin: 08/20/17 15:38 Dose: 1,000 mg Atorvastatin Calcium (Lipitor -) 20 mg PO HS [facility] Last Admin: 08/19/17 22:44 Dose: Not Given Budesonide/Formoterol Fumarate (Symbicort 160/4.5mcg -) 1 puff IH DAILY [facility] Last Admin: 08/20/17 13:11 Dose: Not Given Calcium Carbonate (Calcium Carb Oral Suspension -) 500 mg PO DAILY [facility] Last Admin: 08/20/17 09:55 Dose: Not Given Carvedilol (Coreg -) 12.5 mg PO BID [facility] Last Admin: 08/20/17 09:55 Dose: Not Given Fluticasone Propionate (Flonase -) 1 spray NS BID [facility] Last Admin: 08/20/17 09:59 Dose: 1 spray Levofloxacin (Levaquin 250 Mg Premixed Ivpb -) 250 mg in 50 mls @ 50 mls/hr IVPB DAILY [facility] Last Admin: 08/20/17 09:58 Dose: 50 mls/hr Metronidazole (Flagyl 500mg Premixed Ivpb -) 500 mg in 100 mls @ 100 mls/hr IVPB Q8H-IV [facility] Last Admin: 08/20/17 10:47 Dose: 100 mls/hr Dextrose/Sodium Chloride (D5-Ns -) 1,000 mls @ 125 mls/hr IV ASDIR [facility] Lorazepam (Ativan Injection -) 1 mg IVPUSH DAILY PRN PRN Reason: ANXIETY Stop: 08/23/17 23:59 Last Admin: 08/20/17 14:47 Dose: 1 mg Montelukast Sodium (Singulair -) 10 mg PO HS [facility] Last Admin: 08/19/17 22:44 Dose: Not Given Xopenex Hfa Inhaler (Non-Formulary Med) 1 each IH Q6H PRN PRN Reason: SHORT OF BREATH/WHEEZING Last Admin: 08/11/17 23:06 Dose: 1 each Ondansetron HCl (Zofran Injection) 4 mg IVPUSH Q4H PRN PRN Reason: NAUSEA AND/OR VOMITING Last Admin: 08/18/17 11:20 Dose: 4 mg Pancrelipase (Creon Dr 36,000 Units Capsule) 1 cap PO TIDCM [facility] Last Admin: 08/20/17 11:31 Dose: Not Given Pantoprazole Sodium (Protonix Iv) 40 mg IVPUSH DAILY [facility] Last Admin: 08/20/17 09:59 Dose: 40 mg Tamsulosin HCl (Flomax -) 0.4 mg PO HS [facility] Last Admin: 08/19/17 22:44 Dose: Not Given Tiotropium [place] (Spiriva -) 1 puff IH DAILY [facility] Last Admin: 08/20/17 09:59 Dose: 1 puff Trazodone HCl (Desyrel -) [address] [facility] Last Admin: 08/19/17 22:44 Dose: Not Given - Objective Vital Signs: Vital Signs Temperature 98.3 F 08/20/17 13:54 Pulse Rate 61 08/20/17 13:54 Respiratory Rate 18 08/20/17 13:54 Blood Pressure 109/60 08/20/17 13:54 O2 Sat by Pulse Oximetry (%) 95 08/20/17 05:20 Constitutional: Yes: Calm Eyes: Yes: Conjunctiva Clear HENT: Yes: Atraumatic Cardiovascular: Yes: S1, S2 Respiratory: Yes: Wheezes Gastrointestinal: Yes: Soft, Other (ng tube) Genitourinary: Yes: WNL Musculoskeletal: Yes: WNL Edema: Yes Edema: LLE: Trace, RLE: Trace Integumentary: Yes: Venous Stasis Changes Neurological: Yes: Oriented Psychiatric: Yes: Oriented, Agitated Labs: CBC, BMP 08/20/17 06:40 08/20/17 06:40 INR, PTT INR 1.32 (0.82-1.09) H 08/12/17 07:45 - ....Imaging X-ray: Report Reviewed Problem List - Problems (1) CKD (chronic kidney disease) Code(s): N18.9 - CHRONIC KIDNEY DISEASE, UNSPECIFIED Qualifiers: Chronic kidney disease stage: stage 4 (severe) Qualified Code(s): N18.4 - Chronic kidney disease, stage 4 (severe) (2) Anemia Code(s): D64.9 - ANEMIA, UNSPECIFIED Qualifiers: Anemia type: unspecified type Qualified Code(s): D64.9 - Anemia, unspecified (3) Abdominal pain Code(s): R10.9 - UNSPECIFIED ABDOMINAL PAIN Qualifiers: Abdominal location: unspecified location Qualified Code(s): R10.9 - Unspecified abdominal pain (4) Rectal bleeding Code(s): K62.5 - HEMORRHAGE OF ANUS AND RECTUM (5) Acute exacerbation of COPD with asthma Code(s): J44.1 - CHRONIC OBSTRUCTIVE PULMONARY DISEASE W (ACUTE) EXACERBATION; J45.901 - UNSPECIFIED ASTHMA WITH (ACUTE) EXACERBATION (6) CHF (congestive heart failure) Code(s): I50.9 - HEART FAILURE, UNSPECIFIED Qualifiers: Congestive heart failure type: combined Congestive heart failure chronicity : acute on chronic Qualified Code(s): I50.43 - Acute on chronic combined systolic (congestive) and diastolic (congestive) heart failure Assessment/Plan Current Medications Generic Name Dose Route Start Last Admin Trade Name Freq PRN Reason Stop Dose Admin Acetaminophen 1,000 mg 08/19/17 18:30 08/20/17 15:38 Ofirmev Injection - IVPB 1,000 mg Q6H PRN Administration FEVER OR PAIN Atorvastatin Calcium 20 mg 08/10/17 20:15 08/19/17 22:44 Lipitor - PO Not Given HS [facility] Budesonide/Formoterol Fumarate 1 puff 08/11/17 10:00 08/20/17 13:11 Symbicort 160/4.5mcg - IH Not Given DAILY [facility] Calcium Carbonate 500 mg 08/11/17 16:30 08/20/17 09:55 Calcium Carb Oral Suspension - PO Not Given DAILY [facility] Carvedilol 12.5 mg 08/12/17 22:00 08/20/17 09:55 Coreg - PO Not Given BID [facility] Fluticasone Propionate 1 spray 08/10/17 22:00 08/20/17 09:59 Flonase - NS 1 spray BID [facility] Administration Levofloxacin 250 mg in 50 mls @ 50 mls/hr 08/17/17 10:00 08/20/17 09:58 Levaquin 250 Mg Premixed Ivpb - IVPB 50 mls/hr DAILY [facility] Administration Metronidazole 500 mg in 100 mls @ 100 mls/hr 08/17/17 18:00 08/20/17 10:47 Flagyl 500mg Premixed Ivpb - IVPB 100 mls/hr Q8H-IV [facility] Administration Dextrose/Sodium Chloride 1,000 mls @ 125 mls/hr 08/20/17 16:15 D5-Ns - IV ASDIR [facility] Lorazepam 1 mg 08/19/17 18:34 08/20/17 14:47 Ativan Injection - IVPUSH 08/23/17 23:59 1 mg DAILY PRN Administration ANXIETY Montelukast Sodium 10 mg 08/10/17 20:15 08/19/17 22:44 Singulair - PO Not Given HS [facility] Xopenex Hfa Inhaler 1 each 08/10/17 23:14 08/11/17 23:06 Non-Formulary Med IH 1 each Q6H PRN Administration SHORT OF BREATH/WHEEZING Ondansetron HCl 4 mg 08/17/17 09:36 08/18/17 11:20 Zofran Injection IVPUSH 4 mg Q4H PRN Administration NAUSEA AND/OR VOMITING Pancrelipase 1 cap 08/14/17 08:00 08/20/17 11:[address] 36,000 Units Capsule PO Not Given TIDCM [facility] Pantoprazole Sodium 40 mg 08/19/17 20:15 08/20/17 09:59 Protonix Iv IVPUSH 40 mg DAILY [facility] Administration Tamsulosin HCl 0.4 mg 08/10/17 20:15 08/19/17 22:44 Flomax - PO Not Given HS [facility] Tiotropium [place] 1 puff 08/11/17 10:00 08/20/17 09:59 Spiriva - IH 1 puff DAILY [facility] Administration Trazodone HCl 100 mg 08/10/17 22:00 08/19/17 22:44 Desyrel - PO Not Given HS [facility] Laboratory Tests 08/19/17 17:15 Ur Random Sodium 12 Impression 1. CKD 2. ALAN 3. anemia 4. GI bleed 5. BPH 6. a-fib 7. aortic aneurysm 8. COPD 9. insomnia 10. SBO Plan - ALAN is worsening, likely from pre-renal disease superimposed on CKD - increase fluids - repeat labs in am - monitor NG output - surgery input appreciated - renal function is worse today - will continue hydration and monitor renal function - keep pt NPO per surgery - discussed plan at length with pt and his daughter - urine sodium is 12 - keep arb on hold - will follow closely - will evaluate for HD daily Dr Ortega
--- NOTE | 2017-08-20 16:56 | PN ---
Progress Note, Physician History of Present Illness: feeling better - Current Medication List Current Medications: Active Medications Acetaminophen (Ofirmev Injection -) 1,000 mg IVPB Q6H PRN PRN Reason: FEVER OR PAIN Last Admin: 08/20/17 15:38 Dose: 1,000 mg Atorvastatin Calcium (Lipitor -) 20 mg PO HS [facility] Last Admin: 08/19/17 22:44 Dose: Not Given Budesonide/Formoterol Fumarate (Symbicort 160/4.5mcg -) 1 puff IH DAILY [facility] Last Admin: 08/20/17 13:11 Dose: Not Given Calcium Carbonate (Calcium Carb Oral Suspension -) 500 mg PO DAILY [facility] Last Admin: 08/20/17 09:55 Dose: Not Given Carvedilol (Coreg -) 12.5 mg PO BID [facility] Last Admin: 08/20/17 09:55 Dose: Not Given Fluticasone Propionate (Flonase -) 1 spray NS BID [facility] Last Admin: 08/20/17 09:59 Dose: 1 spray Levofloxacin (Levaquin 250 Mg Premixed Ivpb -) 250 mg in 50 mls @ 50 mls/hr IVPB DAILY [facility] Last Admin: 08/20/17 09:58 Dose: 50 mls/hr Metronidazole (Flagyl 500mg Premixed Ivpb -) 500 mg in 100 mls @ 100 mls/hr IVPB Q8H-IV [facility] Last Admin: 08/20/17 10:47 Dose: 100 mls/hr Sodium Chloride (Normal Saline -) 500 mls @ 500 mls/hr IV ASDIR [facility] Stop: 08/20/17 17:21 Last Admin: 08/20/17 16:30 Dose: 500 mls/hr Sodium Chloride (1/2 Normal Saline) 1,000 mls @ 125 mls/hr IV ASDIR [facility] Lorazepam (Ativan Injection -) 1 mg IVPUSH DAILY PRN PRN Reason: ANXIETY Stop: 08/23/17 23:59 Last Admin: 08/20/17 14:47 Dose: 1 mg Montelukast Sodium (Singulair -) 10 mg PO HS [facility] Last Admin: 08/19/17 22:44 Dose: Not Given Xopenex Hfa Inhaler (Non-Formulary Med) 1 each IH Q6H PRN PRN Reason: SHORT OF BREATH/WHEEZING Last Admin: 08/11/17 23:06 Dose: 1 each Ondansetron HCl (Zofran Injection) 4 mg IVPUSH Q4H PRN PRN Reason: NAUSEA AND/OR VOMITING Last Admin: 08/18/17 11:20 Dose: 4 mg Pancrelipase (Creon Dr 36,000 Units Capsule) 1 cap PO TIDCM [facility] Last Admin: 08/20/17 11:31 Dose: Not Given Pantoprazole Sodium (Protonix Iv) 40 mg IVPUSH DAILY [facility] Last Admin: 08/20/17 09:59 Dose: 40 mg Tamsulosin HCl (Flomax -) 0.4 mg PO HS [facility] Last Admin: 08/19/17 22:44 Dose: Not Given Tiotropium [place] (Spiriva -) 1 puff IH DAILY [facility] Last Admin: 08/20/17 09:59 Dose: 1 puff Trazodone HCl (Desyrel -) 100 mg PO [facility] Last Admin: 08/19/17 22:44 Dose: Not Given - Objective Vital Signs: Vital Signs Temperature 98.3 F 08/20/17 13:54 Pulse Rate 61 08/20/17 13:54 Respiratory Rate 18 08/20/17 13:54 Blood Pressure 109/60 08/20/17 13:54 O2 Sat by Pulse Oximetry (%) 95 08/20/17 05:20 Constitutional: Yes: No Distress HENT: Yes: Atraumatic Neck: Yes: Supple Cardiovascular: Yes: Regular Rate and Rhythm Respiratory: Yes: CTA Bilaterally Gastrointestinal: Yes: Distention, Hypoactive Bowel Sounds Extremities: Yes: WNL Neurological: Yes: Alert, Oriented Labs: CBC, BMP 08/20/17 06:40 08/20/17 06:40 INR, PTT INR 1.32 (0.82-1.09) H 08/12/17 07:45 Problem List - Problems (1) Rectal bleeding Assessment/Plan: resolved Code(s): K62.5 - HEMORRHAGE OF ANUS AND RECTUM (2) CHF (congestive heart failure) Assessment/Plan: stable no sob Code(s): I50.9 - HEART FAILURE, UNSPECIFIED Qualifiers: Congestive heart failure type: combined Congestive heart failure chronicity : acute on chronic Qualified Code(s): I50.43 - Acute on chronic combined systolic (congestive) and diastolic (congestive) heart failure (3) Acute diverticulitis Assessment/Plan: on iv abx id on board Code(s): K57.92 - DVTRCLI OF INTEST, PART UNSP, W/O PERF OR ABSCESS W/O BLEED (4) Anemia Assessment/Plan: monitor s/p prbc transfusion Code(s): D64.9 - ANEMIA, UNSPECIFIED Qualifiers: Anemia type: unspecified type Qualified Code(s): D64.9 - Anemia, unspecified (5) CKD (chronic kidney disease) Assessment/Plan: monitor...cr getting worse on ivf renal on board Code(s): N18.9 - CHRONIC KIDNEY DISEASE, UNSPECIFIED Qualifiers: Chronic kidney disease stage: stage 4 (severe) Qualified Code(s): N18.4 - Chronic kidney disease, stage 4 (severe) (6) CHF Congestive heart failure Code(s): I50.9 - HEART FAILURE, UNSPECIFIED (7) SBO (small bowel obstruction) Assessment/Plan: npo, ivf.. iv pain meds ngt Code(s): K56.609 - UNSP INTESTNL OBST, UNSP TO PARTIAL VERSUS COMPLETE OBST (8) Hypercholesterolemia Code(s): E78.00 - PURE HYPERCHOLESTEROLEMIA, UNSPECIFIED Assessment/Plan spoke in detail with daughter and patient with dr mcmullen they understand the care plan
[2017-08-20] MEDS: SODIUM CHLORIDE 0.45% 1,000 ML IV SCH (17:31)
[2017-08-20] MEDS: MONTELUKAST NA 10 MG TABLET PO SCH (21:32)
[2017-08-20] MEDS: TAMSULOSIN HCL 0.4 MG CAP.ER.24H (FP) PO SCH (21:32)
[2017-08-20] MEDS: ATORVASTATIN CA 20 MG TABLET (FP) PO SCH (21:32)
[2017-08-20] MEDS: traZODone HCL 100 MG TABLET (FP) PO SCH (21:32)
[2017-08-20] MEDS ORDERED: LORazepam 2 MG/ML SDV VIAL IVPUSH ONE (23:00)
[2017-08-21] MEDS: METRONIDAZOLE 500 MG PREMIXED 500 MG/100 ML MG IVPB SCH ×4 (02:24→18:05)
[2017-08-21] MEDS: SODIUM CHLORIDE 0.45% 1,000 ML IV SCH (02:28)
[2017-08-21 08:05] LABS: BASO % 0.2 % (0-2.0); EOS % 0.8 % (0-4.5); HEMATOCRIT 28.5 % (35.4-49); HEMOGLOBIN 9.1 GM/dL (11.7-16.9); MCH 29.2 pg (25.7-33.7); MCHC 32.1 g/dl (32.0-35.9); MONO % 6.2 % (3.8-10.2); NEUT % 88.8 % (42.8-82.8); PLATELET COUNT 188 K/MM3 (134-434); RBC 3.13 M/mm3 (4.00-5.60); WHITE BLOOD COUNT 14.4 K/mm3 (4.0-10.0)
[2017-08-21] MEDS: LIPASE/PROTEASE/AMYLASE 36,000 UNIT CAPSULE PO SCH ×3 (08:27→17:30)
[2017-08-21 08:33] LABS: ALBUMIN 2.2 g/dl (3.4-5.0); ANION GAP 18 (8-16); BILIRUBIN,TOTAL 0.6 mg/dL (0.2-1.0); CHLORIDE 106 mmol/L (98-107); CO2 16 mmol/L (21-32); GLUCOSE,RANDOM 68 mg/dL (74-106); SGOT/AST 17 U/L (15-37); SGPT/ALT 12 U/L (12-78); SODIUM 140 mmol/L (136-145)
[2017-08-21 08:39] LABS: ALK PHOS 68 U/L (45-117); BLOOD UREA NITROGEN 104 mg/dL (7-18)
--- NOTE | 2017-08-21 09:48 | PN ---
Progress Note, Physician Chief Complaint: small bowel obstruction History of Present Illness: 71 yo male with a MMP with history of intermittent constipation. Patient states he had a colonoscopy 5 years previous which was normal. CTscan on 08/17 shows distended stomach and small bowel, contrast was very proximal. Only previous abdominal surgery was an open appendectomy. only complains of hunger this morning. reports no additional flatus last night. - Current Medication List Current Medications: Active Medications Acetaminophen (Ofirmev Injection -) 1,000 mg IVPB Q6H PRN PRN Reason: FEVER OR PAIN Last Admin: 08/20/17 15:38 Dose: 1,000 mg Atorvastatin Calcium (Lipitor -) 20 mg PO HS [facility] Last Admin: 08/20/17 21:32 Dose: Not Given Budesonide/Formoterol Fumarate (Symbicort 160/4.5mcg -) 1 puff IH DAILY [facility] Last Admin: 08/20/17 13:11 Dose: Not Given Calcium Carbonate (Calcium Carb Oral Suspension -) 500 mg PO DAILY [facility] Last Admin: 08/20/17 09:55 Dose: Not Given Carvedilol (Coreg -) 12.5 mg PO BID [facility] Last Admin: 08/20/17 21:32 Dose: Not Given Fluticasone Propionate (Flonase -) 1 spray NS BID [facility] Last Admin: 08/20/17 22:07 Dose: 1 spray Levofloxacin (Levaquin 250 Mg Premixed Ivpb -) 250 mg in 50 mls @ 50 mls/hr IVPB DAILY [facility] Last Admin: 08/20/17 09:58 Dose: 50 mls/hr Metronidazole (Flagyl 500mg Premixed Ivpb -) 500 mg in 100 mls @ 100 mls/hr IVPB Q8H-IV [facility] Last Admin: 08/21/17 02:24 Dose: 100 mls/hr Sodium Chloride (1/2 Normal Saline) 1,000 mls @ 125 mls/hr IV ASDIR [facility] Last Admin: 08/21/17 02:28 Dose: 125 mls/hr Lorazepam (Ativan Injection -) 1 mg IVPUSH DAILY PRN PRN Reason: ANXIETY Stop: 08/23/17 23:59 Last Admin: 08/20/17 14:47 Dose: 1 mg Montelukast Sodium (Singulair -) 10 mg PO HS [facility] Last Admin: 08/20/17 21:32 Dose: Not Given Xopenex Hfa Inhaler (Non-Formulary Med) 1 each IH Q6H PRN PRN Reason: SHORT OF BREATH/WHEEZING Last Admin: 08/11/17 23:06 Dose: 1 each Ondansetron HCl (Zofran Injection) 4 mg IVPUSH Q4H PRN PRN Reason: NAUSEA AND/OR VOMITING Last Admin: 08/18/17 11:20 Dose: 4 mg Pancrelipase (Creon Dr 36,000 Units Capsule) 1 cap PO TIDCM [facility] Last Admin: 08/21/17 08:27 Dose: Not Given Pantoprazole Sodium (Protonix Iv) 40 mg IVPUSH DAILY [facility] Last Admin: 08/20/17 09:59 Dose: 40 mg Tamsulosin HCl (Flomax -) 0.4 mg PO HS [facility] Last Admin: 08/20/17 21:32 Dose: Not Given Tiotropium [place] (Spiriva -) 1 puff IH DAILY [facility] Last Admin: 08/20/17 09:59 Dose: 1 puff Trazodone HCl (Desyrel -) 100 mg PO HS [facility] Last Admin: 08/20/17 21:32 Dose: Not Given - Objective Vital Signs: Vital Signs Temperature 98 F 08/21/17 02:00 Pulse Rate 65 08/21/17 02:00 Respiratory Rate 20 08/21/17 02:00 Blood Pressure 116/63 08/21/17 02:00 O2 Sat by Pulse Oximetry (%) 95 08/21/17 06:00 Constitutional: Yes: No Distress, Calm Eyes: Yes: Conjunctiva Clear, EOM Intact HENT: Yes: Atraumatic, Normocephalic Neck: Yes: Supple, Trachea Midline Cardiovascular: Yes: Regular Rate and Rhythm, S1, S2 Respiratory: Yes: Regular, CTA Bilaterally Gastrointestinal: Yes: Normal Bowel Sounds, Soft, Distention Genitourinary: Yes: CVA Tenderness - Left. No: CVA Tenderness - Right Extremities: No: Cool, Cyanosis Edema: Yes Edema: LLE: 2+, RLE: 2+ Peripheral Pulses WNL: Yes Peripheral Pulses: Left Doralis Pedis: 2+, Right Dorsalis Pedis: 2+, Left Femoral: 2+, Right Femoral: 2+ Neurological: Yes: Alert, Oriented Psychiatric: Yes: Alert, Oriented Labs: CBC, BMP 12/15/17 06:30 08/21/17 06:30 INR, PTT INR 1.32 (0.82-1.09) H 08/12/17 07:45 - ....Imaging X-ray: Pending (looks improved), Image Reviewed Problem List - Problems (1) Ileus, unspecified Assessment/Plan: 71yo male MMP presents with a partial SBO, h/o appendectomy, recent normal colonoscopy, more likely paralytics ileus which appeared to be resolving last night but is worse today. (He has cups of water from the bathroom). NGT discontinued yesterday no vomiting, however abdominal distension is worse on exam. He refused his IV placement and had not had IVF since last night. WBC is 14 today up from normal range. His Xray today looks worse. After a family discussion with the family at the bedside he will agree to stay and allow us to treat him. Strict NPO Replace NGT IV placement and IVF hydration Repeat labs Consider PICC and TPN given length of NPO at this point Abdominal xray daily to track progress of ileus trend cbc for AM - unclear why there is an elevation will follow for serial exams Would consider exploratory laparotomy if not improved in 48hours, this is if he allows us to treat him Code(s): K56.7 - ILEUS, UNSPECIFIED (2) SBO (small bowel obstruction) Code(s): K56.609 - UNSP INTESTNL OBST, UNSP TO PARTIAL VERSUS COMPLETE OBST (3) Abdominal pain Code(s): R10.9 - UNSPECIFIED ABDOMINAL PAIN Qualifiers: Abdominal location: unspecified location Qualified Code(s): R10.9 - Unspecified abdominal pain (4) Acute diverticulitis Code(s): K57.92 - DVTRCLI OF INTEST, PART UNSP, W/O PERF OR ABSCESS W/O BLEED (5) Anemia Code(s): D64.9 - ANEMIA, UNSPECIFIED Qualifiers: Anemia type: unspecified type Qualified Code(s): D64.9 - Anemia, unspecified (6) Hypercholesterolemia Code(s): E78.00 - PURE HYPERCHOLESTEROLEMIA, UNSPECIFIED (7) CHF Congestive heart failure Code(s): I50.9 - HEART FAILURE, UNSPECIFIED
[2017-08-21] MEDS: CARVEDILOL 12.5 MG TABLET (FP) PO SCH ×2 (09:56→21:59)
[2017-08-21] MEDS: CALCIUM CARBONATE SUSPENSION - 500 MG/5 ML ML PO SCH (09:56)
[2017-08-21] MEDS: FLUTICASONE PROP 0.05% 16 GM NASAL SPRAY NS SCH ×3 (11:57→22:03)
[2017-08-21] MEDS: PANTOPRAZOLE SODIUM 40 MG VIAL IVPUSH SCH ×2 (11:58→12:41)
[2017-08-21] MEDS: BUDESONIDE/FORMETEROL FUMARATE 160/4.5 mcg INHALER IH SCH (11:58)
[2017-08-21] MEDS: LEVOFLOXACIN 250 MG IVPB 250 MG/50 ML MG IVPB SCH ×2 (11:58→13:54)
[2017-08-21] MEDS: TIOTROPIUM BROMIDE 18 MCG/INH (DEVICE W/ 5 CAPSULES) IH SCH ×2 (11:58→12:40)
[2017-08-21] MEDS ORDERED: PT OWN MED DRAWER 7, Y5N ONE ×2 (12:31→21:55)
[2017-08-21] MEDS ORDERED: TETRACAINE/BENZOCAINE/BUTAMBEN 20 GM SPR TP STA (12:59)
[2017-08-21] MEDS ORDERED: LIDOCAINE VISCOUS 2% ORAL/TOP 20 ML UNIT-DOSE CUP MM STA (13:00)
[2017-08-21] MEDS ORDERED: METOCLOPRAMIDE HCL INJECTION 10 MG/2 ML VIAL IVPUSH PRN (13:22)
[2017-08-21] MEDS: LORazepam 2 MG/ML SDV VIAL IVPUSH PRN ×2 (13:57→22:02)
--- NOTE | 2017-08-21 14:00 | PN ---
Progress Note, Physician History of Present Illness: Pt is alert. No recent BMs. States he has been bringing up increase greenish phlegm but no acute respiratory distress. Remains afebrile. WBC elevated today. - Current Medication List Current Medications: Active Medications Acetaminophen (Ofirmev Injection -) 1,000 mg IVPB Q6H PRN PRN Reason: FEVER OR PAIN Last Admin: 08/20/17 15:38 Dose: 1,000 mg Atorvastatin Calcium (Lipitor -) 20 mg PO HS [facility] Last Admin: 08/20/17 21:32 Dose: Not Given Budesonide/Formoterol Fumarate (Symbicort 160/4.5mcg -) 1 puff IH DAILY [facility] Last Admin: 08/21/17 11:58 Dose: Not Given Calcium Carbonate (Calcium Carb Oral Suspension -) 500 mg PO DAILY [facility] Last Admin: 08/21/17 09:56 Dose: Not Given Carvedilol (Coreg -) 12.5 mg PO BID [facility] Last Admin: 08/21/17 09:56 Dose: Not Given Fluticasone Propionate (Flonase -) 1 spray NS BID [facility] Last Admin: 08/21/17 12:39 Dose: 1 spray Levofloxacin (Levaquin 250 Mg Premixed Ivpb -) 250 mg in 50 mls @ 50 mls/hr IVPB DAILY [facility] Last Admin: 08/20/17 09:58 Dose: 50 mls/hr Metronidazole (Flagyl 500mg Premixed Ivpb -) 500 mg in 100 mls @ 100 mls/hr IVPB Q8H-IV [facility] Last Admin: 08/21/17 12:39 Dose: 100 mls/hr Sodium Chloride (1/2 Normal Saline) 1,000 mls @ 125 mls/hr IV ASDIR [facility] Last Admin: 08/21/17 02:28 Dose: 125 mls/hr Lorazepam (Ativan Injection -) 1 mg IVPUSH DAILY PRN PRN Reason: ANXIETY Stop: 08/23/17 23:59 Last Admin: 08/20/17 14:47 Dose: 1 mg Metoclopramide HCl (Reglan Injection -) 10 mg IVPUSH Q8H PRN PRN Reason: NAUSEA AND/OR VOMITING Montelukast Sodium (Singulair -) 10 mg PO HS [facility] Last Admin: 08/20/17 21:32 Dose: Not Given Xopenex Hfa Inhaler (Non-Formulary Med) 1 each IH Q6H PRN PRN Reason: SHORT OF BREATH/WHEEZING Last Admin: 08/11/17 23:06 Dose: 1 each Ondansetron HCl (Zofran Injection) 4 mg IVPUSH Q4H PRN PRN Reason: NAUSEA AND/OR VOMITING Last Admin: 08/18/17 11:20 Dose: 4 mg Pancrelipase (Creon Dr 36,000 Units Capsule) 1 cap PO TIDCM [facility] Last Admin: 08/21/17 11:59 Dose: Not Given Pantoprazole Sodium (Protonix Iv) 40 mg IVPUSH DAILY [facility] Last Admin: 08/21/17 12:41 Dose: 40 mg Tamsulosin HCl (Flomax -) 0.4 mg PO HS [facility] Last Admin: 08/20/17 21:32 Dose: Not Given Tiotropium [place] (Spiriva -) 1 puff IH DAILY [facility] Last Admin: 08/21/17 12:40 Dose: 1 puff Trazodone HCl (Desyrel -) 100 mg PO HS [facility] Last Admin: 08/20/17 21:32 Dose: Not Given - Objective Vital Signs: Vital Signs Temperature 98 F 08/21/17 02:00 Pulse Rate 65 08/21/17 02:00 Respiratory Rate 20 08/21/17 02:00 Blood Pressure 116/63 08/21/17 02:00 O2 Sat by Pulse Oximetry (%) 95 08/21/17 06:00 Constitutional: Yes: No Distress, Calm HENT: Yes: Other (NGT in place) Cardiovascular: Yes: Regular Rate and Rhythm Respiratory: Yes: CTA Bilaterally Gastrointestinal: Yes: Normal Bowel Sounds, Soft, Distention Genitourinary: Yes: WNL Edema: Yes Edema: LLE: 1+, RLE: 1+ Integumentary: Yes: WNL Neurological: Yes: Alert, Oriented Labs: INR, PTT INR 1.32 (0.82-1.09) H 08/12/17 07:45 wbc 14.4K Creat - 9 Problem List - Problems (1) Acute diverticulitis Code(s): K57.92 - DVTRCLI OF INTEST, PART UNSP, W/O PERF OR ABSCESS W/O BLEED (2) CKD (chronic kidney disease) Code(s): N18.9 - CHRONIC KIDNEY DISEASE, UNSPECIFIED Qualifiers: Chronic kidney disease stage: stage 4 (severe) Qualified Code(s): N18.4 - Chronic kidney disease, stage 4 (severe) (3) Rectal bleeding Code(s): K62.5 - HEMORRHAGE OF ANUS AND RECTUM (4) CHF (congestive heart failure) Code(s): I50.9 - HEART FAILURE, UNSPECIFIED Qualifiers: Congestive heart failure type: combined Congestive heart failure chronicity : acute on chronic Qualified Code(s): I50.43 - Acute on chronic combined systolic (congestive) and diastolic (congestive) heart failure (5) SBO (small bowel obstruction) Code(s): K56.609 - UNSP INTESTNL OBST, UNSP TO PARTIAL VERSUS COMPLETE OBST Assessment/Plan 71 y.o. male with hx of CAD s/p CABG, Afib on Eliquis, AV replacement, CKD, COPD , CHF presented with bloody/dark stools and abdominal pain. Has not been having BMs due to SB obstruction. Wbc elevated today. Acute Diverticulitis Partial SBO GI bleed CKD - worsening renal function Leukocytosis r/o PNA GI bleed Anemia - continue antibiotics, order CXR , collect sputum for culture - repeat cbc in am, monitor trend - renal function being monitored - surgery following - monitor vitals closely
[2017-08-21 14:22] LABS: BASO % 0.2 % (0-2.0); EOS % 0.6 % (0-4.5); HEMATOCRIT 28.1 % (35.4-49); HEMOGLOBIN 8.7 GM/dL (11.7-16.9); LYMPH % 3.4 % (8-40); MCH 28.7 pg (25.7-33.7); MCHC 31.1 g/dl (32.0-35.9); MEAN CELL VOLUME 92.3 fl (80-96); MEAN PLT VOLUME 8.1 fl (7.5-11.1); MONO % 6.1 % (3.8-10.2); NEUT % 89.7 % (42.8-82.8); PLATELET COUNT 182 K/MM3 (134-434); RBC 3.04 M/mm3 (4.00-5.60); RDW 15.7 % (11.9-15.9); WHITE BLOOD COUNT 14.4 K/mm3 (4.0-10.0)
--- NOTE | 2017-08-21 14:26 | PN ---
Progress Note, Physician History of Present Illness: Abd pain and distension worsened after removal of NGT decompression since reinstated. - Current Medication List Current Medications: Active Medications Acetaminophen (Ofirmev Injection -) 1,000 mg IVPB Q6H PRN PRN Reason: FEVER OR PAIN Last Admin: 08/20/17 15:38 Dose: 1,000 mg Atorvastatin Calcium (Lipitor -) 20 mg PO HS [facility] Last Admin: 08/20/17 21:32 Dose: Not Given Budesonide/Formoterol Fumarate (Symbicort 160/4.5mcg -) 1 puff IH DAILY [facility] Last Admin: 08/21/17 11:58 Dose: Not Given Calcium Carbonate (Calcium Carb Oral Suspension -) 500 mg PO DAILY [facility] Last Admin: 08/21/17 09:56 Dose: Not Given Carvedilol (Coreg -) 12.5 mg PO BID [facility] Last Admin: 08/21/17 09:56 Dose: Not Given Fluticasone Propionate (Flonase -) 1 spray NS BID [facility] Last Admin: 08/21/17 12:39 Dose: 1 spray Levofloxacin (Levaquin 250 Mg Premixed Ivpb -) 250 mg in 50 mls @ 50 mls/hr IVPB DAILY [facility] Last Admin: 08/21/17 13:54 Dose: 50 mls/hr Metronidazole (Flagyl 500mg Premixed Ivpb -) 500 mg in 100 mls @ 100 mls/hr IVPB Q8H-IV [facility] Last Admin: 08/21/17 12:39 Dose: 100 mls/hr Dextrose/Sodium Chloride (D5-1/2ns -) 1,000 mls @ 100 mls/hr IV ASDIR [facility] Lorazepam (Ativan Injection -) 1 mg IVPUSH DAILY PRN PRN Reason: ANXIETY Stop: 08/23/17 23:59 Last Admin: 08/21/17 13:57 Dose: 1 mg Montelukast Sodium (Singulair -) 10 mg PO HS [facility] Last Admin: 08/20/17 21:32 Dose: Not Given Xopenex Hfa Inhaler (Non-Formulary Med) 1 each IH Q6H PRN PRN Reason: SHORT OF BREATH/WHEEZING Last Admin: 08/11/17 23:06 Dose: 1 each Ondansetron HCl (Zofran Injection) 4 mg IVPUSH Q4H PRN PRN Reason: NAUSEA AND/OR VOMITING Last Admin: 08/18/17 11:20 Dose: 4 mg Pancrelipase (Creon Dr 36,000 Units Capsule) 1 cap PO TIDCM [facility] Last Admin: 08/21/17 11:59 Dose: Not Given Pantoprazole Sodium (Protonix Iv) 40 mg IVPUSH DAILY [facility] Last Admin: 08/21/17 12:41 Dose: 40 mg Tamsulosin HCl (Flomax -) 0.4 mg PO HS [facility] Last Admin: 08/20/17 21:32 Dose: Not Given Tiotropium [place] (Spiriva -) 1 puff IH DAILY [facility] Last Admin: 08/21/17 12:40 Dose: 1 puff Trazodone HCl (Desyrel -) 100 mg PO HS [facility] Last Admin: 08/20/17 21:32 Dose: Not Given - Objective Vital Signs: Vital Signs Temperature 98 F 08/21/17 02:00 Pulse Rate 65 08/21/17 02:00 Respiratory Rate 20 08/21/17 02:00 Blood Pressure 116/63 08/21/17 02:00 O2 Sat by Pulse Oximetry (%) 95 08/21/17 06:00 Constitutional: Yes: No Distress, Calm Neck: Yes: Supple Cardiovascular: Yes: Regular Rate and Rhythm Respiratory: Yes: Regular, Diminished Gastrointestinal: Yes: Soft, Distention, Hypoactive Bowel Sounds Edema: Yes Edema: LLE: Trace, RLE: Trace Labs: INR, PTT INR 1.32 (0.82-1.09) H 08/12/17 07:45 - ....Imaging X-ray: Report Reviewed (SBO more apparent today) Problem List - Problems (1) Anemia Code(s): D64.9 - ANEMIA, UNSPECIFIED Qualifiers: Anemia type: unspecified type Qualified Code(s): D64.9 - Anemia, unspecified (2) CVD (cerebrovascular disease) Code(s): I67.9 - CEREBROVASCULAR DISEASE, UNSPECIFIED (3) Hx of CABG Code(s): Z95.1 - PRESENCE OF AORTOCORONARY BYPASS GRAFT (4) Hypercholesterolemia Code(s): E78.00 - PURE HYPERCHOLESTEROLEMIA, UNSPECIFIED (5) Presence of permanent cardiac pacemaker Code(s): Z95.0 - PRESENCE OF CARDIAC PACEMAKER (6) Sick sinus syndrome Code(s): I49.5 - SICK SINUS SYNDROME (7) CHF Congestive heart failure Code(s): I50.9 - HEART FAILURE, UNSPECIFIED (8) Abdominal aortic aneurysm (AAA) Code(s): I71.4 - ABDOMINAL AORTIC ANEURYSM, WITHOUT RUPTURE Qualifiers: Presence of rupture: without rupture Qualified Code(s): I71.4 - Abdominal aortic aneurysm, without rupture (9) Ischemic colitis Code(s): K55.9 - VASCULAR DISORDER OF INTESTINE, UNSPECIFIED (10) Rectal bleeding Code(s): K62.5 - HEMORRHAGE OF ANUS AND RECTUM (11) [id number] kidney injury Code(s): N17.9 - ACUTE KIDNEY FAILURE, UNSPECIFIED; N18.9 - CHRONIC KIDNEY DISEASE, UNSPECIFIED Qualifiers: Acute renal failure type: unspecified Chronic kidney disease stage: stage 4 (severe) Qualified Code(s): N17.9 - Acute kidney failure, unspecified; N18.4 - Chronic kidney disease, stage 4 (severe); N18.4 - Chronic kidney disease , stage 4 (severe); N18.4 - Chronic kidney disease, stage 4 (severe); N18.4 - Chronic kidney disease, stage 4 (severe) Assessment/Plan 1. Rectal bleed, underlying diverticulitis now with paralytic ileus worse today 2. CAD s/p CABG, angina pectoris 3. Persistent AF with underlying PPM for sick sinus syndrome 4. Acute on CKD 5. CVA/TIA 6. COPD 7. TAA and AAA PLAN: 1. Surgery to follow for further management including NGT, bowel rest, empiric abx course, consider surgical intervention if no response in 48 hrs 2. Monitor renal function, gentle hydration 3. Continue Carvedilol 12.5 bid as tolerated and if able to take PO 4. Continue Atorvastatin 20 qhs if able to take PO 5. Monitor CBC and transfuse PRBC as needed 6. TAA and AAA likely also needs surveillance Further plans are to follow. Importance of above issues emphasized to patient. Currently he is off Eliquis, but will need to resume once cleared after resolution of rectal bleed, diverticulitis and partial SBO P
[2017-08-21 14:32] LABS: ALBUMIN 2.1 g/dl (3.4-5.0); ANION GAP 18 (8-16); BILIRUBIN,TOTAL 0.3 mg/dL (0.2-1.0); CALCIUM 7.4 mg/dL (8.5-10.1); CHLORIDE 105 mmol/L (98-107); CO2 17 mmol/L (21-32); GLUCOSE,RANDOM 66 mg/dL (74-106); POTASSIUM 4.1 mmol/L (3.5-5.1); SGOT/AST 17 U/L (15-37); SGPT/ALT 12 U/L (12-78); SODIUM 140 mmol/L (136-145); TOT PROT 4.9 g/dl (6.4-8.2)
[2017-08-21 14:37] LABS: ALK PHOS 65 U/L (45-117)
[2017-08-21 14:57] LABS: BLOOD UREA NITROGEN 106 mg/dL (7-18)
--- NOTE | 2017-08-21 15:00 | PN ---
Progress Note, Physician History of Present Illness: Pt seen and examined at bedside. He is awake and anxious. He did not have IV access for some time today. - Current Medication List Current Medications: Active Medications Acetaminophen (Ofirmev Injection -) 1,000 mg IVPB Q6H PRN PRN Reason: FEVER OR PAIN Last Admin: 08/20/17 15:38 Dose: 1,000 mg Atorvastatin Calcium (Lipitor -) 20 mg PO HS [facility] Last Admin: 08/20/17 21:32 Dose: Not Given Budesonide/Formoterol Fumarate (Symbicort 160/4.5mcg -) 1 puff IH DAILY [facility] Last Admin: 08/21/17 11:58 Dose: Not Given Calcium Carbonate (Calcium Carb Oral Suspension -) 500 mg PO DAILY [facility] Last Admin: 08/21/17 09:56 Dose: Not Given Carvedilol (Coreg -) 12.5 mg PO BID [facility] Last Admin: 08/21/17 09:56 Dose: Not Given Fluticasone Propionate (Flonase -) 1 spray NS BID [facility] Last Admin: 08/21/17 12:39 Dose: 1 spray Levofloxacin (Levaquin 250 Mg Premixed Ivpb -) 250 mg in 50 mls @ 50 mls/hr IVPB DAILY [facility] Last Admin: 08/21/17 13:54 Dose: 50 mls/hr Metronidazole (Flagyl 500mg Premixed Ivpb -) 500 mg in 100 mls @ 100 mls/hr IVPB Q8H-IV [facility] Last Admin: 08/21/17 12:39 Dose: 100 mls/hr Dextrose/Sodium Chloride (D5-1/2ns -) 1,000 mls @ 100 mls/hr IV ASDIR [facility] Lorazepam (Ativan Injection -) 1 mg IVPUSH DAILY PRN PRN Reason: ANXIETY Stop: 08/23/17 23:59 Last Admin: 08/21/17 13:57 Dose: 1 mg Montelukast Sodium (Singulair -) 10 mg PO HS [facility] Last Admin: 08/20/17 21:32 Dose: Not Given Xopenex Hfa Inhaler (Non-Formulary Med) 1 each IH Q6H PRN PRN Reason: SHORT OF BREATH/WHEEZING Last Admin: 08/11/17 23:06 Dose: 1 each Ondansetron HCl (Zofran Injection) 4 mg IVPUSH Q4H PRN PRN Reason: NAUSEA AND/OR VOMITING Last Admin: 08/18/17 11:20 Dose: 4 mg Pancrelipase (Creon Dr 36,000 Units Capsule) 1 cap PO TIDCM [facility] Last Admin: 08/21/17 11:59 Dose: Not Given Pantoprazole Sodium (Protonix Iv) 40 mg IVPUSH DAILY [facility] Last Admin: 08/21/17 12:41 Dose: 40 mg Tamsulosin HCl (Flomax -) 0.4 mg PO HS [facility] Last Admin: 08/20/17 21:32 Dose: Not Given Tiotropium [place] (Spiriva -) 1 puff IH DAILY [facility] Last Admin: 08/21/17 12:40 Dose: 1 puff Trazodone HCl (Desyrel -) 100 mg PO [facility] Last Admin: 08/20/17 21:32 Dose: Not Given - Objective Vital Signs: Vital Signs Temperature 98 F 08/21/17 02:00 Pulse Rate 65 08/21/17 02:00 Respiratory Rate 20 08/21/17 02:00 Blood Pressure 116/63 08/21/17 02:00 O2 Sat by Pulse Oximetry (%) 95 08/21/17 06:00 Constitutional: Yes: Anxious Eyes: Yes: Conjunctiva Clear Neck: Yes: Supple Cardiovascular: Yes: S1, S2 Respiratory: Yes: CTA Bilaterally Gastrointestinal: Yes: Soft, Other (ng tube) Genitourinary: Yes: WNL Extremities: Yes: WNL Edema: Yes Edema: LLE: 1+, RLE: 1+ Neurological: Yes: Oriented Psychiatric: Yes: Oriented, Agitated Labs: CBC, BMP 08/21/17 13:45 INR, PTT INR 1.32 (0.82-1.09) H 08/12/17 07:45 Problem List - Problems (1) CKD (chronic kidney disease) Code(s): N18.9 - CHRONIC KIDNEY DISEASE, UNSPECIFIED Qualifiers: Chronic kidney disease stage: stage 4 (severe) Qualified Code(s): N18.4 - Chronic kidney disease, stage 4 (severe) (2) Anemia Code(s): D64.9 - ANEMIA, UNSPECIFIED Qualifiers: Anemia type: unspecified type Qualified Code(s): D64.9 - Anemia, unspecified (3) Abdominal pain Code(s): R10.9 - UNSPECIFIED ABDOMINAL PAIN Qualifiers: Abdominal location: unspecified location Qualified Code(s): R10.9 - Unspecified abdominal pain (4) Rectal bleeding Code(s): K62.5 - HEMORRHAGE OF ANUS AND RECTUM (5) Acute exacerbation of COPD with asthma Code(s): J44.1 - CHRONIC OBSTRUCTIVE PULMONARY DISEASE W (ACUTE) EXACERBATION; J45.901 - UNSPECIFIED ASTHMA WITH (ACUTE) EXACERBATION (6) CHF (congestive heart failure) Code(s): I50.9 - HEART FAILURE, UNSPECIFIED Qualifiers: Congestive heart failure type: combined Congestive heart failure chronicity : acute on chronic Qualified Code(s): I50.43 - Acute on chronic combined systolic (congestive) and diastolic (congestive) heart failure Assessment/Plan Current Medications Generic Name Dose Route Start Last Admin Trade Name Freq PRN Reason Stop Dose Admin Acetaminophen 1,000 mg 08/19/17 18:30 08/20/17 15:38 Ofirmev Injection - IVPB 1,000 mg Q6H PRN Administration FEVER OR PAIN Atorvastatin Calcium 20 mg 08/10/17 20:15 08/20/17 21:32 Lipitor - PO Not Given HS [facility] Budesonide/Formoterol Fumarate 1 puff 08/11/17 10:00 08/21/17 11:58 Symbicort 160/4.5mcg - IH Not Given DAILY [facility] Calcium Carbonate 500 mg 08/11/17 16:30 08/21/17 09:56 Calcium Carb Oral Suspension - PO Not Given DAILY [facility] Carvedilol 12.5 mg 08/12/17 22:00 08/21/17 09:56 Coreg - PO Not Given BID [facility] Fluticasone Propionate 1 spray 08/10/17 22:00 08/21/17 12:39 Flonase - NS 1 spray BID [facility] Administration Levofloxacin 250 mg in 50 mls @ 50 mls/hr 08/17/17 10:00 08/21/17 13:54 Levaquin 250 Mg Premixed Ivpb - IVPB 50 mls/hr DAILY [facility] Administration Metronidazole 500 mg in 100 mls @ 100 mls/hr 08/17/17 18:00 08/21/17 12:39 Flagyl 500mg Premixed Ivpb - IVPB 100 mls/hr Q8H-IV [facility] Administration Dextrose/Sodium Chloride 1,000 mls @ 100 mls/hr 08/21/17 14:30 D5-1/2ns - IV ASDIR [facility] Lorazepam 1 mg 08/19/17 18:34 08/21/17 13:57 Ativan Injection - IVPUSH 08/23/17 23:59 1 mg DAILY PRN Administration ANXIETY Montelukast Sodium 10 mg 08/10/17 20:15 08/20/17 21:32 Singulair - PO Not Given HS [facility] Xopenex Hfa Inhaler 1 each 08/10/17 23:14 08/11/17 23:06 Non-Formulary Med IH 1 each Q6H PRN Administration SHORT OF BREATH/WHEEZING Ondansetron HCl 4 mg 08/17/17 09:36 08/18/17 11:20 Zofran Injection IVPUSH 4 mg Q4H PRN Administration NAUSEA AND/OR VOMITING Pancrelipase 1 cap 08/14/17 08:00 08/21/17 11:[address] 36,000 Units Capsule PO Not Given TIDCM [facility] Pantoprazole Sodium 40 mg 08/19/17 20:15 08/21/17 12:41 Protonix Iv IVPUSH 40 mg DAILY [facility] Administration Tamsulosin HCl 0.4 mg 08/10/17 20:15 08/20/17 21:32 Flomax - PO Not Given HS [facility] Tiotropium [place] 1 puff 08/11/17 10:00 08/21/17 12:40 Spiriva - IH 1 puff DAILY [facility] Administration Trazodone HCl 100 mg 08/10/17 22:00 08/20/17 21:32 Desyrel - PO Not Given HS [facility] Impression 1. CKD 2. ALAN 3. anemia 4. GI bleed 5. BPH 6. a-fib 7. aortic aneurysm 8. COPD 9. insomnia 10. SBO Plan - creatinine is starting to improve - BUN is starting to improve too - cont with fluids - repeat labs in am - discussed possibility of HD with pt and family - will cont hydration - surgery input appreciated - reviewed abd film - maintain NG tube - keep pt NPO per surgery - keep arb on hold - will follow closely - follow cxr - will evaluate for HD daily Dr Ortega
[2017-08-21] MEDS: DEXTROSE 5%-0.45% SALINE 1,000 ML IV SCH (15:19)
[2017-08-21] MEDS: LYTES/YERBA SANTA 240 ML BOTTLE MM SCH (16:36)
--- NOTE | 2017-08-21 17:11 | PN ---
Progress Note, Physician - Current Medication List Current Medications: Active Medications Acetaminophen (Ofirmev Injection -) 1,000 mg IVPB Q6H PRN PRN Reason: FEVER OR PAIN Last Admin: 08/20/17 15:38 Dose: 1,000 mg Atorvastatin Calcium (Lipitor -) 20 mg PO HS [facility] Last Admin: 08/20/17 21:32 Dose: Not Given Budesonide/Formoterol Fumarate (Symbicort 160/4.5mcg -) 1 puff IH DAILY [facility] Last Admin: 08/21/17 11:58 Dose: Not Given Calcium Carbonate (Calcium Carb Oral Suspension -) 500 mg PO DAILY [facility] Last Admin: 08/21/17 09:56 Dose: Not Given Carvedilol (Coreg -) 12.5 mg PO BID [facility] Last Admin: 08/21/17 09:56 Dose: Not Given Fluticasone Propionate (Flonase -) 1 spray NS BID [facility] Last Admin: 08/21/17 12:39 Dose: 1 spray Levofloxacin (Levaquin 250 Mg Premixed Ivpb -) 250 mg in 50 mls @ 50 mls/hr IVPB DAILY [facility] Last Admin: 08/21/17 13:54 Dose: 50 mls/hr Metronidazole (Flagyl 500mg Premixed Ivpb -) 500 mg in 100 mls @ 100 mls/hr IVPB Q8H-IV [facility] Last Admin: 08/21/17 12:39 Dose: 100 mls/hr Dextrose/Sodium Chloride (D5-1/2ns -) 1,000 mls @ 100 mls/hr IV ASDIR [facility] Last Admin: 08/21/17 15:19 Dose: 100 mls/hr Lorazepam (Ativan Injection -) 1 mg IVPUSH DAILY PRN PRN Reason: ANXIETY Stop: 08/23/17 23:59 Last Admin: 08/21/17 13:57 Dose: 1 mg Montelukast Sodium (Singulair -) 10 mg PO HS [facility] Last Admin: 08/20/17 21:32 Dose: Not Given Xopenex Hfa Inhaler (Non-Formulary Med) 1 each IH Q6H PRN PRN Reason: SHORT OF BREATH/WHEEZING Last Admin: 08/11/17 23:06 Dose: 1 each Ondansetron HCl (Zofran Injection) 4 mg IVPUSH Q4H PRN PRN Reason: NAUSEA AND/OR VOMITING Last Admin: 08/18/17 11:20 Dose: 4 mg Pancrelipase (Creon Dr 36,000 Units Capsule) 1 cap PO TIDCM [facility] Last Admin: 08/21/17 11:59 Dose: Not Given Pantoprazole Sodium (Protonix Iv) 40 mg IVPUSH DAILY [facility] Last Admin: 08/21/17 12:41 Dose: 40 mg Saliva Substitute ([place] Solution -) 1 applic MM DAILY [facility] Last Admin: 08/21/17 16:36 Dose: 1 applic Tamsulosin HCl (Flomax -) 0.4 mg PO HS [facility] Last Admin: 08/20/17 21:32 Dose: Not Given Tiotropium [place] (Spiriva -) 1 puff IH DAILY [facility] Last Admin: 08/21/17 12:40 Dose: 1 puff Trazodone HCl (Desyrel -) 100 mg PO HS [facility] Last Admin: 08/20/17 21:32 Dose: Not Given - Objective Vital Signs: Vital Signs Temperature 98.0 F 08/21/17 15:24 Pulse Rate 61 08/21/17 15:24 Respiratory Rate 20 08/21/17 15:24 Blood Pressure 137/69 08/21/17 15:24 O2 Sat by Pulse Oximetry (%) 95 08/21/17 06:00 Constitutional: Yes: No Distress HENT: Yes: Atraumatic Neck: Yes: Supple Cardiovascular: Yes: Regular Rate and Rhythm Respiratory: Yes: CTA Bilaterally Gastrointestinal: Yes: Distention, Hypoactive Bowel Sounds Extremities: Yes: WNL Edema: No Neurological: Yes: Alert, Oriented Labs: CBC, BMP 08/21/17 13:45 08/21/17 13:45 INR, PTT INR 1.32 (0.82-1.09) H 08/12/17 07:45 Problem List - Problems (1) Rectal bleeding Assessment/Plan: resolved Code(s): K62.5 - HEMORRHAGE OF ANUS AND RECTUM (2) CHF (congestive heart failure) Assessment/Plan: stable no sob Code(s): I50.9 - HEART FAILURE, UNSPECIFIED Qualifiers: Congestive heart failure type: combined Congestive heart failure chronicity : acute on chronic Qualified Code(s): I50.43 - Acute on chronic combined systolic (congestive) and diastolic (congestive) heart failure (3) Acute diverticulitis Assessment/Plan: on iv abx id on board Code(s): K57.92 - DVTRCLI OF INTEST, PART UNSP, W/O PERF OR ABSCESS W/O BLEED (4) Anemia Assessment/Plan: monitor s/p prbc transfusion Code(s): D64.9 - ANEMIA, UNSPECIFIED Qualifiers: Anemia type: unspecified type Qualified Code(s): D64.9 - Anemia, unspecified (5) CKD (chronic kidney disease) Assessment/Plan: monitor...cr getting worse on ivf renal on board Code(s): N18.9 - CHRONIC KIDNEY DISEASE, UNSPECIFIED Qualifiers: Chronic kidney disease stage: stage 4 (severe) Qualified Code(s): N18.4 - Chronic kidney disease, stage 4 (severe) (6) CHF Congestive heart failure Code(s): I50.9 - HEART FAILURE, UNSPECIFIED (7) SBO (small bowel obstruction) Assessment/Plan: npo, ivf.. iv pain meds ngt in place as xray was worse today Code(s): K56.609 - UNSP INTESTNL OBST, UNSP TO PARTIAL VERSUS COMPLETE OBST (8) Hypercholesterolemia Code(s): E78.00 - PURE HYPERCHOLESTEROLEMIA, UNSPECIFIED
[2017-08-21] MEDS: MONTELUKAST NA 10 MG TABLET PO SCH (22:00)
[2017-08-21] MEDS: traZODone HCL 100 MG TABLET (FP) PO SCH (22:00)
[2017-08-21] MEDS: ATORVASTATIN CA 20 MG TABLET (FP) PO SCH (22:00)
[2017-08-21] MEDS: TAMSULOSIN HCL 0.4 MG CAP.ER.24H (FP) PO SCH (22:00)
[2017-08-22] MEDS: METRONIDAZOLE 500 MG PREMIXED 500 MG/100 ML MG IVPB SCH ×3 (01:13→18:04)
[2017-08-22] MEDS ORDERED: PT OWN MED DRAWER 7, Y5N ONE ×2 (07:03→09:07)
[2017-08-22] MEDS: LIPASE/PROTEASE/AMYLASE 36,000 UNIT CAPSULE PO SCH ×3 (07:57→17:34)
[2017-08-22 08:33] LABS: BASO % 0.2 % (0-2.0); HEMATOCRIT 29.5 % (35.4-49); HEMOGLOBIN 9.3 GM/dL (11.7-16.9); MCH 28.7 pg (25.7-33.7); MCHC 31.5 g/dl (32.0-35.9); MEAN CELL VOLUME 91.1 fl (80-96); MEAN PLT VOLUME 7.8 fl (7.5-11.1); MONO % 7.3 % (3.8-10.2); NEUT % 88.5 % (42.8-82.8); PLATELET COUNT 187 K/MM3 (134-434); RBC 3.24 M/mm3 (4.00-5.60); RDW 15.5 % (11.9-15.9); WHITE BLOOD COUNT 12.3 K/mm3 (4.0-10.0)
[2017-08-22 09:09] LABS: ALBUMIN 2.3 g/dl (3.4-5.0); ANION GAP 14 (8-16); BLOOD UREA NITROGEN 104 mg/dL (7-18); CALCIUM 7.7 mg/dL (8.5-10.1); CHLORIDE 107 mmol/L (98-107); CO2 20 mmol/L (21-32); GLUCOSE,RANDOM 106 mg/dL (74-106); POTASSIUM 3.9 mmol/L (3.5-5.1); SODIUM 141 mmol/L (136-145)
[2017-08-22] MEDS: CALCIUM CARBONATE SUSPENSION - 500 MG/5 ML ML PO SCH (09:12)
[2017-08-22] MEDS: CARVEDILOL 12.5 MG TABLET (FP) PO SCH ×2 (09:12→21:50)
[2017-08-22] MEDS: FLUTICASONE PROP 0.05% 16 GM NASAL SPRAY NS SCH ×2 (09:14→21:50)
[2017-08-22] MEDS: PANTOPRAZOLE SODIUM 40 MG VIAL IVPUSH SCH (09:14)
[2017-08-22] MEDS: TIOTROPIUM BROMIDE 18 MCG/INH (DEVICE W/ 5 CAPSULES) IH SCH (09:15)
[2017-08-22] MEDS: LYTES/YERBA SANTA 240 ML BOTTLE MM SCH (09:16)
[2017-08-22 09:18] LABS: ALK PHOS 69 U/L (45-117); BILIRUBIN,TOTAL 0.4 mg/dL (0.2-1.0); SGOT/AST 17 U/L (15-37); SGPT/ALT 12 U/L (12-78); TOT PROT 5.1 g/dl (6.4-8.2)
--- NOTE | 2017-08-22 09:23 | PN ---
Progress Note, Physician Chief Complaint: small bowel obstruction History of Present Illness: 71 yo male with a MMP with history of intermittent constipation. Patient states he had a colonoscopy 5 years previous which was normal. CTscan on 08/17 shows distended stomach and small bowel, contrast was very proximal. Only previous abdominal surgery was an open appendectomy. abdominal pain is improved today, had oral contrast for xray follow though. - Current Medication List Current Medications: Active Medications Acetaminophen (Ofirmev Injection -) 1,000 mg IVPB Q6H PRN PRN Reason: FEVER OR PAIN Last Admin: 08/20/17 15:38 Dose: 1,000 mg Atorvastatin Calcium (Lipitor -) 20 mg PO HS [facility] Last Admin: 08/21/17 22:00 Dose: Not Given Budesonide/Formoterol Fumarate (Symbicort 160/4.5mcg -) 1 puff IH DAILY [facility] Last Admin: 08/21/17 11:58 Dose: Not Given Calcium Carbonate (Calcium Carb Oral Suspension -) 500 mg PO DAILY [facility] Last Admin: 08/21/17 09:56 Dose: Not Given Carvedilol (Coreg -) 12.5 mg PO BID [facility] Last Admin: 08/21/17 21:59 Dose: Not Given Fluticasone Propionate (Flonase -) 1 spray NS BID [facility] Last Admin: 08/21/17 22:03 Dose: Not Given Levofloxacin (Levaquin 250 Mg Premixed Ivpb -) 250 mg in 50 mls @ 50 mls/hr IVPB DAILY [facility] Last Admin: 08/21/17 13:54 Dose: 50 mls/hr Metronidazole (Flagyl 500mg Premixed Ivpb -) 500 mg in 100 mls @ 100 mls/hr IVPB Q8H-IV [facility] Last Admin: 08/22/17 01:13 Dose: 100 mls/hr Dextrose/Sodium Chloride (D5-1/2ns -) 1,000 mls @ 100 mls/hr IV ASDIR [facility] Last Admin: 08/21/17 15:19 Dose: 100 mls/hr Lorazepam (Ativan Injection -) 1 mg IVPUSH DAILY PRN PRN Reason: ANXIETY Stop: 08/23/17 23:59 Last Admin: 08/21/17 22:02 Dose: 1 mg Montelukast Sodium (Singulair -) 10 mg PO HS [facility] Last Admin: 08/21/17 22:00 Dose: Not Given Xopenex Hfa Inhaler (Non-Formulary Med) 1 each IH Q6H PRN PRN Reason: SHORT OF BREATH/WHEEZING Last Admin: 08/11/17 23:06 Dose: 1 each Ondansetron HCl (Zofran Injection) 4 mg IVPUSH Q4H PRN PRN Reason: NAUSEA AND/OR VOMITING Last Admin: 08/18/17 11:20 Dose: 4 mg Pancrelipase (Creon Dr 36,000 Units Capsule) 1 cap PO TIDCM [facility] Last Admin: 08/22/17 07:57 Dose: Not Given Pantoprazole Sodium (Protonix Iv) 40 mg IVPUSH DAILY [facility] Last Admin: 08/21/17 12:41 Dose: 40 mg Saliva Substitute (Mouthkote Solution -) 1 applic MM DAILY [facility] Last Admin: 08/21/17 16:36 Dose: 1 applic Tamsulosin HCl (Flomax -) 0.4 mg PO HS [facility] Last Admin: 08/21/17 22:00 Dose: Not Given Tiotropium [place] (Spiriva -) 1 puff IH DAILY [facility] Last Admin: 08/21/17 12:40 Dose: 1 puff Trazodone HCl (Desyrel -) 100 mg PO HS [facility] Last Admin: 08/21/17 22:00 Dose: Not Given - Objective Vital Signs: Vital Signs Temperature 98.2 F 08/22/17 08:00 Pulse Rate 68 08/22/17 08:00 Respiratory Rate 18 08/22/17 08:00 Blood Pressure 130/70 08/22/17 08:00 O2 Sat by Pulse Oximetry (%) 95 08/21/17 06:00 Vital Signs Period Temp Pulse Resp BP Sys/Whitaker Pulse Ox Last 24 Hr 97.7 F-98.3 F 60-68 18-20 110-137/66-70 Intake & Output 08/21/17 08/22/17 08/22/17 23:59 07:59 15:59 Intake Total 1100 Output Total 350 Balance -350 1100 Weight 179 lb 11.2 oz Intake: IV 1100 S/L 1100 Output: Urine 350 Void 350 Other: Voiding Method Toilet Toilet Urinal Weight Measurement Method Built in [facility] Constitutional: Yes: Calm, Mild Distress Eyes: Yes: Conjunctiva Clear, EOM Intact HENT: Yes: Atraumatic, Normocephalic, Other (NGT in place) Neck: Yes: Supple, Trachea Midline Cardiovascular: Yes: Regular Rate and Rhythm, S1, S2 Respiratory: Yes: Mechanically Ventilated Gastrointestinal: Yes: Soft, Distention, Tenderness. No: Tenderness, Epigastrium, Tenderness, Rebound (minimal tenderness of palpation of LLQ) ...Rectal Exam: Yes: Deferred Genitourinary: No: CVA Tenderness - Left, CVA Tenderness - Right Extremities: No: Cool, Cyanosis Edema: No Peripheral Pulses WNL: Yes Neurological: Yes: Alert, Oriented Psychiatric: Yes: Alert, Oriented Labs: CBC, BMP 08/22/17 07:30 INR, PTT INR 1.32 (0.82-1.09) H 08/12/17 07:45 - ....Imaging X-ray: Report Reviewed, Image Reviewed (SBO pattern, no contrast or air in the colon) Problem List - Problems (1) Ileus, unspecified Assessment/Plan: 71yo male MMP presents with a partial SBO, h/o appendectomy, recent normal colonoscopy, more likely paralytics ileus which appeared to be resolving last night but is worse today. (He has cups of water from the bathroom). NGT discontinued yesterday no vomiting, however abdominal distension is worse on exam. He refused his IV placement and had not had IVF since last night. WBC is down today to 12. Still SBO pattern in Xray. Had some comfort concerns addressed dosing for anxiety and insomnia, help with bathing. NPO and IVF hydration NGT to LCWS Consider PICC and TPN given length of NPO at this point Abdominal xray in AM to follow contrast will follow for serial exams Contrast follow thorough help with bathing ambien prn insomnia ativan prn anxiety Would consider exploratory laparotomy if not improved tomorrow, this is if he allows us to treat him Code(s): K56.7 - ILEUS, UNSPECIFIED (2) SBO (small bowel obstruction) Code(s): K56.609 - UNSP INTESTNL OBST, UNSP TO PARTIAL VERSUS COMPLETE OBST (3) Abdominal pain Code(s): R10.9 - UNSPECIFIED ABDOMINAL PAIN Qualifiers: Abdominal location: unspecified location Qualified Code(s): R10.9 - Unspecified abdominal pain (4) Acute diverticulitis Code(s): K57.92 - DVTRCLI OF INTEST, PART UNSP, W/O PERF OR ABSCESS W/O BLEED (5) Anemia Code(s): D64.9 - ANEMIA, UNSPECIFIED Qualifiers: Anemia type: unspecified type Qualified Code(s): D64.9 - Anemia, unspecified (6) Hypercholesterolemia Code(s): E78.00 - PURE HYPERCHOLESTEROLEMIA, UNSPECIFIED (7) CHF Congestive heart failure Code(s): I50.9 - HEART FAILURE, UNSPECIFIED
[2017-08-22] MEDS ORDERED: HYDROmorphone HCL CARPU-JECT 2 MG/1 ML DISP.SYRIN IVPB ONE (10:08)
[2017-08-22 10:19] LABS: CREATININE 9.2 mg/dL (0.7-1.3)
[2017-08-22] MEDS: LEVOFLOXACIN 250 MG IVPB 250 MG/50 ML MG IVPB SCH (11:44)
[2017-08-22] MEDS: BUDESONIDE/FORMETEROL FUMARATE 160/4.5 mcg INHALER IH SCH (11:56)
--- NOTE | 2017-08-22 12:21 | PN ---
Progress Note, Physician History of Present Illness: events and histoey noted patient still with ng tube and abd distension with higher wbc ng tube irritates him - Current Medication List Current Medications: Active Medications Acetaminophen (Ofirmev Injection -) 1,000 mg IVPB Q6H PRN PRN Reason: FEVER OR PAIN Last Admin: 08/20/17 15:38 Dose: 1,000 mg Atorvastatin Calcium (Lipitor -) 20 mg PO HS [facility] Last Admin: 08/21/17 22:00 Dose: Not Given Budesonide/Formoterol Fumarate (Symbicort 160/4.5mcg -) 1 puff IH DAILY [facility] Last Admin: 08/22/17 11:56 Dose: 1 puff Calcium Carbonate (Calcium Carb Oral Suspension -) 500 mg PO DAILY [facility] Last Admin: 08/22/17 09:12 Dose: Not Given Carvedilol (Coreg -) 12.5 mg PO BID [facility] Last Admin: 08/22/17 09:12 Dose: Not Given Fluticasone Propionate (Flonase -) 1 spray NS BID [facility] Last Admin: 08/22/17 09:14 Dose: 1 spray Levofloxacin (Levaquin 250 Mg Premixed Ivpb -) 250 mg in 50 mls @ 50 mls/hr IVPB DAILY [facility] Last Admin: 08/22/17 11:44 Dose: 50 mls/hr Metronidazole (Flagyl 500mg Premixed Ivpb -) 500 mg in 100 mls @ 100 mls/hr IVPB Q8H-IV [facility] Last Admin: 08/22/17 09:12 Dose: 100 mls/hr Dextrose/Sodium Chloride (D5-1/2ns -) 1,000 mls @ 100 mls/hr IV ASDIR [facility] Last Admin: 08/21/17 15:19 Dose: 100 mls/hr Lorazepam (Ativan Injection -) 1 mg IVPUSH DAILY PRN PRN Reason: ANXIETY Stop: 08/23/17 23:59 Last Admin: 08/21/17 22:02 Dose: 1 mg Montelukast Sodium (Singulair -) 10 mg PO HS [facility] Last Admin: 08/21/17 22:00 Dose: Not Given Xopenex Hfa Inhaler (Non-Formulary Med) 1 each IH Q6H PRN PRN Reason: SHORT OF BREATH/WHEEZING Last Admin: 08/11/17 23:06 Dose: 1 each Ondansetron HCl (Zofran Injection) 4 mg IVPUSH Q4H PRN PRN Reason: NAUSEA AND/OR VOMITING Last Admin: 08/18/17 11:20 Dose: 4 mg Pancrelipase (Creon Dr 36,000 Units Capsule) 1 cap PO TIDCM [facility] Last Admin: 08/22/17 11:56 Dose: Not Given Pantoprazole Sodium (Protonix Iv) 40 mg IVPUSH DAILY [facility] Last Admin: 08/22/17 09:14 Dose: 40 mg Saliva Substitute (Mouthkote Solution -) 1 applic MM DAILY [facility] Last Admin: 08/22/17 09:16 Dose: 1 applic Tamsulosin HCl (Flomax -) 0.4 mg PO HS [facility] Last Admin: 08/21/17 22:00 Dose: Not Given Tiotropium [place] (Spiriva -) 1 puff IH DAILY [facility] Last Admin: 08/22/17 09:15 Dose: 1 puff Trazodone HCl (Desyrel -) 100 mg PO [facility] Last Admin: 08/21/17 22:00 Dose: Not Given - Objective Vital Signs: Vital Signs Temperature 98.2 F 08/22/17 08:00 Pulse Rate 68 08/22/17 08:00 Respiratory Rate 18 08/22/17 08:00 Blood Pressure 130/70 08/22/17 08:00 O2 Sat by Pulse Oximetry (%) 95 08/21/17 06:00 Constitutional: Yes: Well Nourished, Calm Cardiovascular: Yes: Regular Rate and Rhythm Respiratory: Yes: Regular, Poor Air Entry Gastrointestinal: Yes: Distention, Other (absent bowel sounds ng tube in place) Edema: LLE: 1+, RLE: 1+ Neurological: Yes: Alert, Oriented Psychiatric: Yes: Alert, Oriented Labs: CBC, BMP 08/22/17 07:30 08/22/17 07:30 INR, PTT INR 1.32 (0.82-1.09) H 08/12/17 07:45 Assessment/Plan Problem List - Problems (1) Rectal bleeding Assessment/Plan: resolved Code(s): K62.5 - HEMORRHAGE OF ANUS AND RECTUM (2) CHF (congestive heart failure) Assessment/Plan: stable no sob Code(s): I50.9 - HEART FAILURE, UNSPECIFIED Qualifiers: Congestive heart failure type: combined Congestive heart failure chronicity : acute on chronic Qualified Code(s): I50.43 - Acute on chronic combined systolic (congestive) and diastolic (congestive) heart failure (3) Acute diverticulitis Assessment/Plan: on iv abx id on board Code(s): K57.92 - DVTRCLI OF INTEST, PART UNSP, W/O PERF OR ABSCESS W/O BLEED (4) Anemia Assessment/Plan: monitor s/p prbc transfusion Code(s): D64.9 - ANEMIA, UNSPECIFIED Qualifiers: Anemia type: unspecified type Qualified Code(s): D64.9 - Anemia, unspecified (5) CKD (chronic kidney disease) Assessment/Plan: monitor...cr LITTLE BETTER on ivf...NEED FOR HD renal on board Code(s): N18.9 - CHRONIC KIDNEY DISEASE, UNSPECIFIED Qualifiers: Chronic kidney disease stage: stage 4 (severe) Qualified Code(s): N18.4 - Chronic kidney disease, stage 4 (severe) (6) CHF Congestive heart failure Code(s): I50.9 - HEART FAILURE, UNSPECIFIED (7) SBO (small bowel obstruction) Assessment/Plan: npo, ivf.. iv pain meds ngt in place as xray was worse today Code(s): K56.609 - UNSP INTESTNL OBST, UNSP TO PARTIAL VERSUS COMPLETE OBST (8) Hypercholesterolemia Code(s): E78.00 - PURE HYPERCHOLESTEROLEMIA, UNSPECIFIED patient already has been on levaquin and flagyl plan will continue current abx will monitor wbc might switch him to zosyn tomorrow close monitoring
--- NOTE | 2017-08-22 12:29 | PN ---
Progress Note, Physician Chief Complaint: Events noted. Patient appears uncomfortable with NG Renal function worsening History of Present Illness: Patient was seen and examined. Awake and alert. Chart was reviewed Denies chest pain, SOB or palpitation As outlined above Renal input to follow - Current Medication List Current Medications: Active Medications Acetaminophen (Ofirmev Injection -) 1,000 mg IVPB Q6H PRN PRN Reason: FEVER OR PAIN Last Admin: 08/20/17 15:38 Dose: 1,000 mg Atorvastatin Calcium (Lipitor -) 20 mg PO HS [facility] Last Admin: 08/21/17 22:00 Dose: Not Given Budesonide/Formoterol Fumarate (Symbicort 160/4.5mcg -) 1 puff IH DAILY [facility] Last Admin: 08/22/17 11:56 Dose: 1 puff Calcium Carbonate (Calcium Carb Oral Suspension -) 500 mg PO DAILY [facility] Last Admin: 08/22/17 09:12 Dose: Not Given Carvedilol (Coreg -) 12.5 mg PO BID [facility] Last Admin: 08/22/17 09:12 Dose: Not Given Fluticasone Propionate (Flonase -) 1 spray NS BID [facility] Last Admin: 08/22/17 09:14 Dose: 1 spray Levofloxacin (Levaquin 250 Mg Premixed Ivpb -) 250 mg in 50 mls @ 50 mls/hr IVPB DAILY [facility] Last Admin: 08/22/17 11:44 Dose: 50 mls/hr Metronidazole (Flagyl 500mg Premixed Ivpb -) 500 mg in 100 mls @ 100 mls/hr IVPB Q8H-IV [facility] Last Admin: 08/22/17 09:12 Dose: 100 mls/hr Dextrose/Sodium Chloride (D5-1/2ns -) 1,000 mls @ 100 mls/hr IV ASDIR [facility] Last Admin: 08/21/17 15:19 Dose: 100 mls/hr Lorazepam (Ativan Injection -) 1 mg IVPUSH DAILY PRN PRN Reason: ANXIETY Stop: 08/23/17 23:59 Last Admin: 08/21/17 22:02 Dose: 1 mg Montelukast Sodium (Singulair -) 10 mg PO HS [facility] Last Admin: 08/21/17 22:00 Dose: Not Given Xopenex Hfa Inhaler (Non-Formulary Med) 1 each IH Q6H PRN PRN Reason: SHORT OF BREATH/WHEEZING Last Admin: 08/11/17 23:06 Dose: 1 each Ondansetron HCl (Zofran Injection) 4 mg IVPUSH Q4H PRN PRN Reason: NAUSEA AND/OR VOMITING Last Admin: 08/18/17 11:20 Dose: 4 mg Pancrelipase (Creon Dr 36,000 Units Capsule) 1 cap PO TIDCM [facility] Last Admin: 08/22/17 11:56 Dose: Not Given Pantoprazole Sodium (Protonix Iv) 40 mg IVPUSH DAILY [facility] Last Admin: 08/22/17 09:14 Dose: 40 mg Saliva Substitute (Mouthkote Solution -) 1 applic MM DAILY [facility] Last Admin: 08/22/17 09:16 Dose: 1 applic Tamsulosin HCl (Flomax -) 0.4 mg PO HS [facility] Last Admin: 08/21/17 22:00 Dose: Not Given Tiotropium [place] (Spiriva -) 1 puff IH DAILY [facility] Last Admin: 08/22/17 09:15 Dose: 1 puff Trazodone HCl (Desyrel -) 100 mg PO [facility] Last Admin: 08/21/17 22:00 Dose: Not Given - Objective Vital Signs: Vital Signs Temperature 98.2 F 08/22/17 08:00 Pulse Rate 68 08/22/17 08:00 Respiratory Rate 18 08/22/17 08:00 Blood Pressure 130/70 08/22/17 08:00 O2 Sat by Pulse Oximetry (%) 95 08/21/17 06:00 Eyes: Yes: PERRL Neck: Yes: Supple Cardiovascular: Yes: Regular Rate and Rhythm, S1, S2 Respiratory: Yes: Diminished Gastrointestinal: Yes: Distention, Tenderness (Diffuse) Edema: Yes Labs: CBC, BMP 08/22/17 07:30 08/22/17 07:30 Problem List - Problems (1) CVD (cerebrovascular disease) Code(s): I67.9 - CEREBROVASCULAR DISEASE, UNSPECIFIED (2) Hypercholesterolemia Code(s): E78.00 - PURE HYPERCHOLESTEROLEMIA, UNSPECIFIED (3) Sick sinus syndrome Code(s): I49.5 - SICK SINUS SYNDROME (4) Presence of permanent cardiac pacemaker Code(s): Z95.0 - PRESENCE OF CARDIAC PACEMAKER (5) Hx of CABG Code(s): Z95.1 - PRESENCE OF AORTOCORONARY BYPASS GRAFT (6) Abdominal pain Code(s): R10.9 - UNSPECIFIED ABDOMINAL PAIN Qualifiers: Abdominal location: unspecified location Qualified Code(s): R10.9 - Unspecified abdominal pain (7) Acute diverticulitis Code(s): K57.92 - DVTRCLI OF INTEST, PART UNSP, W/O PERF OR ABSCESS W/O BLEED (8) Anemia Code(s): D64.9 - ANEMIA, UNSPECIFIED Qualifiers: Anemia type: unspecified type Qualified Code(s): D64.9 - Anemia, unspecified (9) CKD (chronic kidney disease) Code(s): N18.9 - CHRONIC KIDNEY DISEASE, UNSPECIFIED Qualifiers: Chronic kidney disease stage: stage 4 (severe) Qualified Code(s): N18.4 - Chronic kidney disease, stage 4 (severe) (10) Rectal bleeding Code(s): K62.5 - HEMORRHAGE OF ANUS AND RECTUM (11) CHF (congestive heart failure) Code(s): I50.9 - HEART FAILURE, UNSPECIFIED Qualifiers: Congestive heart failure type: combined Congestive heart failure chronicity : acute on chronic Qualified Code(s): I50.43 - Acute on chronic combined systolic (congestive) and diastolic (congestive) heart failure (12) Partial small bowel obstruction Code(s): K56.600 - PARTIAL INTESTINAL OBSTRUCTION, UNSPECIFIED TO CAUSE Assessment/Plan 1. Rectal bleed, underlying diverticulitis now with partial SBO with dilated small bowel loops 2. CAD s/p CABG, angina pectoris 3. Persistent AF with underlying PPM for sick sinus syndrome 4. Acute on CKD with worsening creatinine 5. Hypercholesterolemia 6. CVA/TIA 7. COPD 8. TAA and AAA PLAN: 1. GI and surgery input to follow 2. Monitor renal function, gentle hydration ? need for HD to be decided 3. Continue Carvedilol as tolerated and if able to take PO 4. Continue Atorvastatin if able to take PO 5. Monitor CBC and transfuse PRBC as needed 6. TAA and AAA likely also needs surveillance probably not ready for intervention Further plans are to follow. Importance of above issues emphasized to patient. Currently he is off Eliquis, but will need to resume once cleared after current event with the diverticulitis and partial SBO Guarded Klever Marti MD
[2017-08-22] MEDS ORDERED: HYDROmorphone HCL CARPU-JECT 2 MG/1 ML DISP.SYRIN IVPB PRN (14:17)
[2017-08-22] MEDS ORDERED: ZOLPIDEM TARTRATE 5 MG TABLET PO PRN (15:35)
--- NOTE | 2017-08-22 16:02 | PN ---
Progress Note, Physician History of Present Illness: Pt seen and examined at bedside. He is awake. He complains of discomfort from the NG tube. He denies shortness of breath. - Current Medication List Current Medications: Active Medications Acetaminophen (Ofirmev Injection -) 1,000 mg IVPB Q6H PRN PRN Reason: FEVER OR PAIN Last Admin: 08/20/17 15:38 Dose: 1,000 mg Atorvastatin Calcium (Lipitor -) 20 mg PO HS [facility] Last Admin: 08/21/17 22:00 Dose: Not Given Budesonide/Formoterol Fumarate (Symbicort 160/4.5mcg -) 1 puff IH DAILY [facility] Last Admin: 08/22/17 11:56 Dose: 1 puff Calcium Carbonate (Calcium Carb Oral Suspension -) 500 mg PO DAILY [facility] Last Admin: 08/22/17 09:12 Dose: Not Given Carvedilol (Coreg -) 12.5 mg PO BID [facility] Last Admin: 08/22/17 09:12 Dose: Not Given Fluticasone Propionate (Flonase -) 1 spray NS BID [facility] Last Admin: 08/22/17 09:14 Dose: 1 spray Hydromorphone HCl (Dilaudid Injection -) 1 mg IVPB Q4H PRN PRN Reason: PAIN Levofloxacin (Levaquin 250 Mg Premixed Ivpb -) 250 mg in 50 mls @ 50 mls/hr IVPB DAILY [facility] Last Admin: 08/22/17 11:44 Dose: 50 mls/hr Metronidazole (Flagyl 500mg Premixed Ivpb -) 500 mg in 100 mls @ 100 mls/hr IVPB Q8H-IV [facility] Last Admin: 08/22/17 09:12 Dose: 100 mls/hr Dextrose/Sodium Chloride (D5-1/2ns -) 1,000 mls @ 100 mls/hr IV ASDIR [facility] Last Admin: 08/21/17 15:19 Dose: 100 mls/hr Lorazepam (Ativan Injection -) 1 mg IVPUSH DAILY PRN PRN Reason: ANXIETY Stop: 08/23/17 23:59 Last Admin: 08/21/17 22:02 Dose: 1 mg Montelukast Sodium (Singulair -) 10 mg PO HS [facility] Last Admin: 08/21/17 22:00 Dose: Not Given Xopenex Hfa Inhaler (Non-Formulary Med) 1 each IH Q6H PRN PRN Reason: SHORT OF BREATH/WHEEZING Last Admin: 08/11/17 23:06 Dose: 1 each Ondansetron HCl (Zofran Injection) 4 mg IVPUSH Q4H PRN PRN Reason: NAUSEA AND/OR VOMITING Last Admin: 08/18/17 11:20 Dose: 4 mg Pancrelipase (Creon Dr 36,000 Units Capsule) 1 cap PO TIDCM [facility] Last Admin: 08/22/17 11:56 Dose: Not Given Pantoprazole Sodium (Protonix Iv) 40 mg IVPUSH DAILY [facility] Last Admin: 08/22/17 09:14 Dose: 40 mg Saliva Substitute (Mouthkote Solution -) 1 applic MM DAILY [facility] Last Admin: 08/22/17 09:16 Dose: 1 applic Tamsulosin HCl (Flomax -) 0.4 mg PO HS [facility] Last Admin: 08/21/17 22:00 Dose: Not Given Tiotropium [place] (Spiriva -) 1 puff IH DAILY [facility] Last Admin: 08/22/17 09:15 Dose: 1 puff Trazodone HCl (Desyrel -) 100 mg PO HS [facility] Last Admin: 08/21/17 22:00 Dose: Not Given Zolpidem Tartrate (Ambien -) 5 mg PO HS PRN PRN Reason: INSOMNIA - Objective Vital Signs: Vital Signs Temperature 98.2 F 08/22/17 14:00 Pulse Rate 60 08/22/17 14:00 Respiratory Rate 17 08/22/17 14:00 Blood Pressure 121/69 08/22/17 14:00 O2 Sat by Pulse Oximetry (%) 95 08/21/17 06:00 Constitutional: Yes: Anxious Eyes: Yes: Conjunctiva Clear HENT: Yes: Atraumatic Cardiovascular: Yes: S1, S2 Respiratory: Yes: CTA Bilaterally Gastrointestinal: Yes: Soft, Distention Genitourinary: Yes: WNL Musculoskeletal: Yes: WNL Edema: Yes Edema: LLE: 1+, RLE: 1+ Neurological: Yes: Oriented Psychiatric: Yes: Oriented, Agitated Labs: CBC, BMP 08/22/17 07:30 08/22/17 07:30 INR, PTT INR 1.32 (0.82-1.09) H 08/12/17 07:45 - ....Imaging X-ray: Report Reviewed Problem List - Problems (1) CKD (chronic kidney disease) Code(s): N18.9 - CHRONIC KIDNEY DISEASE, UNSPECIFIED Qualifiers: Chronic kidney disease stage: stage 4 (severe) Qualified Code(s): N18.4 - Chronic kidney disease, stage 4 (severe) (2) Anemia Code(s): D64.9 - ANEMIA, UNSPECIFIED Qualifiers: Anemia type: unspecified type Qualified Code(s): D64.9 - Anemia, unspecified (3) Abdominal pain Code(s): R10.9 - UNSPECIFIED ABDOMINAL PAIN Qualifiers: Abdominal location: unspecified location Qualified Code(s): R10.9 - Unspecified abdominal pain (4) Rectal bleeding Code(s): K62.5 - HEMORRHAGE OF ANUS AND RECTUM (5) Acute exacerbation of COPD with asthma Code(s): J44.1 - CHRONIC OBSTRUCTIVE PULMONARY DISEASE W (ACUTE) EXACERBATION; J45.901 - UNSPECIFIED ASTHMA WITH (ACUTE) EXACERBATION (6) CHF (congestive heart failure) Code(s): I50.9 - HEART FAILURE, UNSPECIFIED Qualifiers: Congestive heart failure type: combined Congestive heart failure chronicity : acute on chronic Qualified Code(s): I50.43 - Acute on chronic combined systolic (congestive) and diastolic (congestive) heart failure Assessment/Plan Current Medications Generic Name Dose Route Start Last Admin Trade Name Freq PRN Reason Stop Dose Admin Acetaminophen 1,000 mg 08/19/17 18:30 08/20/17 15:38 Ofirmev Injection - IVPB 1,000 mg Q6H PRN Administration FEVER OR PAIN Atorvastatin Calcium 20 mg 08/10/17 20:15 08/21/17 22:00 Lipitor - PO Not Given HS [facility]Y Budesonide/Formoterol Fumarate 1 puff 08/11/17 10:00 08/22/17 11:56 Symbicort 160/4.5mcg - IH 1 puff DAILY [facility] Administration Calcium Carbonate 500 mg 08/11/17 16:30 08/22/17 09:12 Calcium Carb Oral Suspension - PO Not Given DAILY [facility] Carvedilol 12.5 mg 08/12/17 22:00 08/22/17 09:12 Coreg - PO Not Given BID [facility] Fluticasone Propionate 1 spray 08/10/17 22:00 08/22/17 09:14 Flonase - NS 1 spray BID [facility] Administration Hydromorphone HCl 1 mg 08/22/17 14:17 Dilaudid Injection - IVPB Q4H PRN PAIN Levofloxacin 250 mg in 50 mls @ 50 mls/hr 08/17/17 10:00 08/22/17 11:44 Levaquin 250 Mg Premixed Ivpb - IVPB 50 mls/hr DAILY [facility] Administration Metronidazole 500 mg in 100 mls @ 100 mls/hr 08/17/17 18:00 08/22/17 09:12 Flagyl 500mg Premixed Ivpb - IVPB 100 mls/hr Q8H-IV [facility] Administration Dextrose/Sodium Chloride 1,000 mls @ 100 mls/hr 08/21/17 14:30 08/21/17 15:19 D5-1/2ns - IV 100 mls/hr ASDIR [facility] Administration Lorazepam 1 mg 08/19/17 18:34 08/21/17 22:02 Ativan Injection - IVPUSH 08/23/17 23:59 1 mg DAILY PRN Administration ANXIETY Montelukast Sodium 10 mg 08/10/17 20:15 08/21/17 22:00 Singulair - PO Not Given HS [facility]Y Xopenex Hfa Inhaler 1 each 08/10/17 23:14 08/11/17 23:06 Non-Formulary Med IH 1 each Q6H PRN Administration SHORT OF BREATH/WHEEZING Ondansetron HCl 4 mg 08/17/17 09:36 08/18/17 11:20 Zofran Injection IVPUSH 4 mg Q4H PRN Administration NAUSEA AND/OR VOMITING Pancrelipase 1 cap 08/14/17 08:00 08/22/17 11:56 [place] 36,000 Units Capsule PO Not Given TIDCM [facility] Pantoprazole Sodium 40 mg 08/19/17 20:15 08/22/17 09:14 Protonix Iv IVPUSH 40 mg DAILY [facility] Administration Saliva Substitute 1 applic 08/21/17 15:30 08/22/17 09:16 Mouthkote Solution - MM 1 applic DAILY [facility] Administration Tamsulosin HCl 0.4 mg 08/10/17 20:15 08/21/17 22:00 Flomax - PO Not Given HS [facility]Y Tiotropium [place] 1 puff 08/11/17 10:00 08/22/17 09:15 Spiriva - IH 1 puff DAILY [facility] Administration Trazodone HCl 100 mg 08/10/17 22:00 08/21/17 22:00 Desyrel - PO Not Given HS [facility] Zolpidem Tartrate 5 mg 08/22/17 15:35 Ambien - PO HS PRN INSOMNIA Impression 1. CKD 2. ALAN 3. anemia 4. GI bleed 5. BPH 6. a-fib 7. aortic aneurysm 8. COPD 9. insomnia 10. SBO Plan - called and discussed labs with pts daughter - cont with fluids - pt needs access as his IV is not working - called and discussed with surgery today, no OR scheduled, will monitor - will likely require HD over the next few days if his number do not improve, this was discussed with pt and his daughter - family would like to wait one more day - repeat labs in am - will cont hydration - surgery input appreciated - reviewed abd film - maintain NG tube - keep pt NPO per surgery - keep arb on hold - will follow closely Dr Ortega
--- NOTE | 2017-08-22 17:51 | PN ---
Progress Note, Physician - Current Medication List Current Medications: Active Medications Acetaminophen (Ofirmev Injection -) 1,000 mg IVPB Q6H PRN PRN Reason: FEVER OR PAIN Last Admin: 08/20/17 15:38 Dose: 1,000 mg Atorvastatin Calcium (Lipitor -) 20 mg PO HS [facility] Last Admin: 08/21/17 22:00 Dose: Not Given Budesonide/Formoterol Fumarate (Symbicort 160/4.5mcg -) 1 puff IH DAILY [facility] Last Admin: 08/22/17 11:56 Dose: 1 puff Calcium Carbonate (Calcium Carb Oral Suspension -) 500 mg PO DAILY [facility] Last Admin: 08/22/17 09:12 Dose: Not Given Carvedilol (Coreg -) 12.5 mg PO BID [facility] Last Admin: 08/22/17 09:12 Dose: Not Given Fluticasone Propionate (Flonase -) 1 spray NS BID [facility] Last Admin: 08/22/17 09:14 Dose: 1 spray Hydromorphone HCl (Dilaudid Injection -) 1 mg IVPB Q4H PRN PRN Reason: PAIN Last Admin: 08/22/17 16:20 Dose: 1 mg Levofloxacin (Levaquin 250 Mg Premixed Ivpb -) 250 mg in 50 mls @ 50 mls/hr IVPB DAILY [facility] Last Admin: 08/22/17 11:44 Dose: 50 mls/hr Metronidazole (Flagyl 500mg Premixed Ivpb -) 500 mg in 100 mls @ 100 mls/hr IVPB Q8H-IV [facility] Last Admin: 08/22/17 09:12 Dose: 100 mls/hr Dextrose/Sodium Chloride (D5-1/2ns -) 1,000 mls @ 100 mls/hr IV ASDIR [facility] Last Admin: 08/21/17 15:19 Dose: 100 mls/hr Lorazepam (Ativan Injection -) 1 mg IVPUSH DAILY PRN PRN Reason: ANXIETY Stop: 08/23/17 23:59 Last Admin: 08/21/17 22:02 Dose: 1 mg Montelukast Sodium (Singulair -) 10 mg PO HS [facility] Last Admin: 08/21/17 22:00 Dose: Not Given Xopenex Hfa Inhaler (Non-Formulary Med) 1 each IH Q6H PRN PRN Reason: SHORT OF BREATH/WHEEZING Last Admin: 08/11/17 23:06 Dose: 1 each Ondansetron HCl (Zofran Injection) 4 mg IVPUSH Q4H PRN PRN Reason: NAUSEA AND/OR VOMITING Last Admin: 08/18/17 11:20 Dose: 4 mg Pancrelipase (Creon Dr 36,000 Units Capsule) 1 cap PO TIDCM [facility] Last Admin: 08/22/17 17:34 Dose: Not Given Pantoprazole Sodium (Protonix Iv) 40 mg IVPUSH DAILY [facility] Last Admin: 08/22/17 09:14 Dose: 40 mg Saliva Substitute (Mouthkote Solution -) 1 applic MM DAILY [facility] Last Admin: 08/22/17 09:16 Dose: 1 applic Tamsulosin HCl (Flomax -) 0.4 mg PO HS [facility] Last Admin: 08/21/17 22:00 Dose: Not Given Tiotropium [place] (Spiriva -) 1 puff IH DAILY [facility] Last Admin: 08/22/17 09:15 Dose: 1 puff Trazodone HCl (Desyrel -) 100 mg PO HS [facility] Last Admin: 08/21/17 22:00 Dose: Not Given Zolpidem Tartrate (Ambien -) 5 mg PO HS PRN PRN Reason: INSOMNIA - Objective Vital Signs: Vital Signs Temperature 98.2 F 08/22/17 14:00 Pulse Rate 60 08/22/17 14:00 Respiratory Rate 17 08/22/17 14:00 Blood Pressure 121/69 08/22/17 14:00 O2 Sat by Pulse Oximetry (%) 95 08/21/17 06:00 Constitutional: Yes: Calm HENT: Yes: Atraumatic Neck: Yes: Supple Cardiovascular: Yes: Regular Rate and Rhythm Respiratory: Yes: Rhonchi Gastrointestinal: Yes: Distention, Hypoactive Bowel Sounds Extremities: Yes: WNL Neurological: Yes: Alert, Oriented Labs: CBC, BMP 08/22/17 07:30 08/22/17 07:30 INR, PTT INR 1.32 (0.82-1.09) H 08/12/17 07:45 Problem List - Problems (1) Rectal bleeding Assessment/Plan: resolved Code(s): K62.5 - HEMORRHAGE OF ANUS AND RECTUM (2) CHF (congestive heart failure) Assessment/Plan: stable no sob Code(s): I50.9 - HEART FAILURE, UNSPECIFIED Qualifiers: Congestive heart failure type: combined Congestive heart failure chronicity : acute on chronic Qualified Code(s): I50.43 - Acute on chronic combined systolic (congestive) and diastolic (congestive) heart failure (3) Acute diverticulitis Assessment/Plan: on iv abx id on board Code(s): K57.92 - DVTRCLI OF INTEST, PART UNSP, W/O PERF OR ABSCESS W/O BLEED (4) Anemia Assessment/Plan: monitor s/p prbc transfusion Code(s): D64.9 - ANEMIA, UNSPECIFIED Qualifiers: Anemia type: unspecified type Qualified Code(s): D64.9 - Anemia, unspecified (5) CKD (chronic kidney disease) Assessment/Plan: monitor...cr LITTLE BETTER on ivf...NEED FOR HD renal on board Code(s): N18.9 - CHRONIC KIDNEY DISEASE, UNSPECIFIED Qualifiers: Chronic kidney disease stage: stage 4 (severe) Qualified Code(s): N18.4 - Chronic kidney disease, stage 4 (severe) (6) CHF Congestive heart failure Code(s): I50.9 - HEART FAILURE, UNSPECIFIED (7) SBO (small bowel obstruction) Assessment/Plan: npo, ivf.. iv pain meds ngt in place as xray was worse today Code(s): K56.609 - UNSP INTESTNL OBST, UNSP TO PARTIAL VERSUS COMPLETE OBST (8) Hypercholesterolemia Code(s): E78.00 - PURE HYPERCHOLESTEROLEMIA, UNSPECIFIED Assessment/Plan DR DEJESUS COVERING ThursdayAUG 23- SEP 08
[2017-08-22] MEDS: DEXTROSE 5%-0.45% SALINE 1,000 ML IV SCH (18:04)
[2017-08-22] MEDS ORDERED: AMINO ACIDS 4.25%/D5W 1,000 ML IV SCH (18:15)
[2017-08-22] MEDS: AMINO ACIDS 4.25%/D5W 1,000 ML IV SCH (19:40)
[2017-08-22] MEDS: MONTELUKAST NA 10 MG TABLET PO SCH (21:50)
[2017-08-22] MEDS: TAMSULOSIN HCL 0.4 MG CAP.ER.24H (FP) PO SCH (21:50)
[2017-08-22] MEDS: LORazepam 2 MG/ML SDV VIAL IVPUSH SCH (21:50)
[2017-08-22] MEDS: traZODone HCL 100 MG TABLET (FP) PO SCH (21:50)
[2017-08-22] MEDS: ATORVASTATIN CA 20 MG TABLET (FP) PO SCH (21:50)
[2017-08-23] MEDS: METRONIDAZOLE 500 MG PREMIXED 500 MG/100 ML MG IVPB SCH ×2 (01:24→10:13)
[2017-08-23] MEDS: LORazepam 2 MG/ML SDV VIAL IVPUSH SCH ×4 (02:56→21:11)
[2017-08-23 09:27] LABS: ALBUMIN 2.3 g/dl (3.4-5.0); ANION GAP 15 (8-16); CALCIUM 7.6 mg/dL (8.5-10.1); CHLORIDE 108 mmol/L (98-107); CO2 17 mmol/L (21-32); GLUCOSE,RANDOM 109 mg/dL (74-106); POTASSIUM 3.5 mmol/L (3.5-5.1); SGOT/AST 16 U/L (15-37); SGPT/ALT 13 U/L (12-78); SODIUM 140 mmol/L (136-145)
[2017-08-23 09:39] LABS: ALK PHOS 74 U/L (45-117); BILIRUBIN,TOTAL 0.5 mg/dL (0.2-1.0); BLOOD UREA NITROGEN 98 mg/dL (7-18); TOT PROT 5.3 g/dl (6.4-8.2)
[2017-08-23 10:06] LABS: CREATININE 6.1 mg/dL (0.7-1.3)
[2017-08-23] MEDS: PANTOPRAZOLE SODIUM 40 MG VIAL IVPUSH SCH (10:13)
[2017-08-23] MEDS: CARVEDILOL 12.5 MG TABLET (FP) PO SCH ×2 (10:13→21:07)
[2017-08-23] MEDS: LEVOFLOXACIN 250 MG IVPB 250 MG/50 ML MG IVPB SCH (10:13)
[2017-08-23] MEDS: AMINO ACIDS 4.25%/D5W 1,000 ML IV SCH ×2 (10:14→19:06)
[2017-08-23] MEDS: CALCIUM CARBONATE SUSPENSION - 500 MG/5 ML ML PO SCH (10:14)
[2017-08-23] MEDS: LIPASE/PROTEASE/AMYLASE 36,000 UNIT CAPSULE PO SCH ×3 (10:14→17:16)
[2017-08-23] MEDS: FLUTICASONE PROP 0.05% 16 GM NASAL SPRAY NS SCH ×2 (10:14→21:08)
--- NOTE | 2017-08-23 11:33 | PN ---
Progress Note, Physician History of Present Illness: continues to have abd distension still with minimal flatus absent bowel sounds ng tube still in place - Current Medication List Current Medications: Active Medications Acetaminophen (Ofirmev Injection -) 1,000 mg IVPB Q6H PRN PRN Reason: FEVER OR PAIN Last Admin: 08/20/17 15:38 Dose: 1,000 mg Atorvastatin Calcium (Lipitor -) 20 mg PO HS [facility] Last Admin: 08/22/17 21:50 Dose: Not Given Budesonide/Formoterol Fumarate (Symbicort 160/4.5mcg -) 1 puff IH DAILY [facility] Last Admin: 08/22/17 11:56 Dose: 1 puff Calcium Carbonate (Calcium Carb Oral Suspension -) 500 mg PO DAILY [facility] Last Admin: 08/23/17 10:14 Dose: Not Given Carvedilol (Coreg -) 12.5 mg PO BID [facility] Last Admin: 08/23/17 10:13 Dose: Not Given Fluticasone Propionate (Flonase -) 1 spray NS BID [facility] Last Admin: 08/23/17 10:14 Dose: Not Given Hydromorphone HCl (Dilaudid Injection -) 1 mg IVPB Q4H PRN PRN Reason: PAIN Last Admin: 08/22/17 16:20 Dose: 1 mg Levofloxacin (Levaquin 250 Mg Premixed Ivpb -) 250 mg in 50 mls @ 50 mls/hr IVPB DAILY [facility] Last Admin: 08/23/17 10:13 Dose: 50 mls/hr Metronidazole (Flagyl 500mg Premixed Ivpb -) 500 mg in 100 mls @ 100 mls/hr IVPB Q8H-IV [facility] Last Admin: 08/23/17 10:13 Dose: 100 mls/hr Dextrose/Sodium Chloride (D5-1/2ns -) 1,000 mls @ 100 mls/hr IV ASDIR [facility] Last Admin: 08/22/17 18:04 Dose: 100 mls/hr Amino Acids (Clinimix -) 1,000 mls @ 42 mls/hr IV DAILY [facility] Last Admin: 08/23/17 10:14 Dose: Not Given Lorazepam (Ativan Injection -) 1 mg IVPUSH Q6H-IV [facility] Stop: 08/23/17 23:59 Last Admin: 08/23/17 10:48 Dose: Not Given Montelukast Sodium (Singulair -) 10 mg PO [facility] Last Admin: 08/22/17 21:50 Dose: Not Given Xopenex Hfa Inhaler (Non-Formulary Med) 1 each IH Q6H PRN PRN Reason: SHORT OF BREATH/WHEEZING Last Admin: 08/11/17 23:06 Dose: 1 each Ondansetron HCl (Zofran Injection) 4 mg IVPUSH Q4H PRN PRN Reason: NAUSEA AND/OR VOMITING Last Admin: 08/18/17 11:20 Dose: 4 mg Pancrelipase (Creon Dr 36,000 Units Capsule) 1 cap PO TIDCM [facility] Last Admin: 08/23/17 10:14 Dose: Not Given Pantoprazole Sodium (Protonix Iv) 40 mg IVPUSH DAILY [facility] Last Admin: 08/23/17 10:13 Dose: 40 mg Saliva Substitute (Mouthkote Solution -) 1 applic MM DAILY [facility] Last Admin: 08/22/17 09:16 Dose: 1 applic Tamsulosin HCl (Flomax -) 0.4 mg PO [facility] Last Admin: 08/22/17 21:50 Dose: Not Given Tiotropium [place] (Spiriva -) 1 puff IH DAILY [facility] Last Admin: 08/22/17 09:15 Dose: 1 puff Trazodone HCl (Desyrel -) 100 mg PO [facility] Last Admin: 08/22/17 21:50 Dose: Not Given Zolpidem Tartrate (Ambien -) 5 mg PO HS PRN PRN Reason: INSOMNIA - Objective Vital Signs: Vital Signs Temperature 97.7 F 08/23/17 09:42 Pulse Rate 61 08/23/17 09:42 Respiratory Rate 18 08/23/17 09:42 Blood Pressure 147/72 08/23/17 09:42 O2 Sat by Pulse Oximetry (%) 95 08/21/17 06:00 Constitutional: Yes: Calm, Mild Distress Cardiovascular: Yes: Regular Rate and Rhythm Respiratory: Yes: Poor Air Entry (at the bases) Gastrointestinal: Yes: Distention, Other (absent bowel sounds ng tube in place) Musculoskeletal: Yes: WNL Extremities: Yes: WNL Neurological: Yes: Alert, Oriented Psychiatric: Yes: Alert Labs: CBC, BMP 08/22/17 07:30 08/23/17 07:00 INR, PTT INR 1.32 (0.82-1.09) H 08/12/17 07:45 Assessment/Plan Problem List - Problems (1) Rectal bleeding Assessment/Plan: resolved Code(s): K62.5 - HEMORRHAGE OF ANUS AND RECTUM (2) CHF (congestive heart failure) Assessment/Plan: stable no sob Code(s): I50.9 - HEART FAILURE, UNSPECIFIED Qualifiers: Congestive heart failure type: combined Congestive heart failure chronicity : acute on chronic Qualified Code(s): I50.43 - Acute on chronic combined systolic (congestive) and diastolic (congestive) heart failure (3) Acute diverticulitis Assessment/Plan: on iv abx id on board Code(s): K57.92 - DVTRCLI OF INTEST, PART UNSP, W/O PERF OR ABSCESS W/O BLEED (4) Anemia Assessment/Plan: monitor s/p prbc transfusion Code(s): D64.9 - ANEMIA, UNSPECIFIED Qualifiers: Anemia type: unspecified type Qualified Code(s): D64.9 - Anemia, unspecified (5) CKD (chronic kidney disease) Assessment/Plan: monitor...cr LITTLE BETTER on ivf...NEED FOR HD renal on board Code(s): N18.9 - CHRONIC KIDNEY DISEASE, UNSPECIFIED Qualifiers: Chronic kidney disease stage: stage 4 (severe) Qualified Code(s): N18.4 - Chronic kidney disease, stage 4 (severe) (6) CHF Congestive heart failure Code(s): I50.9 - HEART FAILURE, UNSPECIFIED (7) SBO (small bowel obstruction) Assessment/Plan: npo, ivf.. iv pain meds ngt in place as xray was worse today Code(s): K56.609 - UNSP INTESTNL OBST, UNSP TO PARTIAL VERSUS COMPLETE OBST (8) Hypercholesterolemia Code(s): E78.00 - PURE HYPERCHOLESTEROLEMIA, UNSPECIFIED patient already has been on levaquin and flagyl plan going to change abx to zosyn will stop flagyl and levaquin continue ng tube rest as per gi and primary team
--- NOTE | 2017-08-23 11:57 | PN ---
Progress Note, Physician Chief Complaint: C/O Throat pain and abd distention History of Present Illness: 71 yrs old multiple medical co morbidities, COPD, HTN, anxiety admitted with SBO on NG tube suction. - Current Medication List Current Medications: Active Medications Acetaminophen (Ofirmev Injection -) 1,000 mg IVPB Q6H PRN PRN Reason: FEVER OR PAIN Last Admin: 08/20/17 15:38 Dose: 1,000 mg Atorvastatin Calcium (Lipitor -) 20 mg PO HS [facility] Last Admin: 08/22/17 21:50 Dose: Not Given Budesonide/Formoterol Fumarate (Symbicort 160/4.5mcg -) 1 puff IH DAILY [facility] Last Admin: 08/22/17 11:56 Dose: 1 puff Calcium Carbonate (Calcium Carb Oral Suspension -) 500 mg PO DAILY [facility] Last Admin: 08/23/17 10:14 Dose: Not Given Carvedilol (Coreg -) 12.5 mg PO BID [facility] Last Admin: 08/23/17 10:13 Dose: Not Given Fluticasone Propionate (Flonase -) 1 spray NS BID [facility] Last Admin: 08/23/17 10:14 Dose: Not Given Hydromorphone HCl (Dilaudid Injection -) 1 mg IVPB Q4H PRN PRN Reason: PAIN Last Admin: 08/22/17 16:20 Dose: 1 mg Dextrose/Sodium Chloride (D5-1/2ns -) 1,000 mls @ 100 mls/hr IV ASDIR [facility] Last Admin: 08/22/17 18:04 Dose: 100 mls/hr Amino Acids (Clinimix -) 1,000 mls @ 42 mls/hr IV DAILY [facility] Last Admin: 08/23/17 10:14 Dose: Not Given Lorazepam (Ativan Injection -) 1 mg IVPUSH Q6H-IV [facility] Stop: 08/23/17 23:59 Last Admin: 08/23/17 10:48 Dose: Not Given Montelukast Sodium (Singulair -) 10 mg PO HS [facility] Last Admin: 08/22/17 21:50 Dose: Not Given Xopenex Hfa Inhaler (Non-Formulary Med) 1 each IH Q6H PRN PRN Reason: SHORT OF BREATH/WHEEZING Last Admin: 08/11/17 23:06 Dose: 1 each Ondansetron HCl (Zofran Injection) 4 mg IVPUSH Q4H PRN PRN Reason: NAUSEA AND/OR VOMITING Last Admin: 08/18/17 11:20 Dose: 4 mg Pancrelipase (Creon Dr 36,000 Units Capsule) 1 cap PO TIDCM [facility] Last Admin: 08/23/17 10:14 Dose: Not Given Pantoprazole Sodium (Protonix Iv) 40 mg IVPUSH DAILY [facility] Last Admin: 08/23/17 10:13 Dose: 40 mg Saliva Substitute (Mouthkote Solution -) 1 applic MM DAILY [facility] Last Admin: 08/22/17 09:16 Dose: 1 applic Tamsulosin HCl (Flomax -) 0.4 mg PO HS [facility] Last Admin: 08/22/17 21:50 Dose: Not Given Tiotropium [place] (Spiriva -) 1 puff IH DAILY [facility] Last Admin: 08/22/17 09:15 Dose: 1 puff Trazodone HCl (Desyrel -) 100 mg PO HS [facility] Last Admin: 08/22/17 21:50 Dose: Not Given Zolpidem Tartrate (Ambien -) 5 mg PO HS PRN PRN Reason: INSOMNIA - Objective Vital Signs: Vital Signs Temperature 97.7 F 08/23/17 09:42 Pulse Rate 61 08/23/17 09:42 Respiratory Rate 18 08/23/17 09:42 Blood Pressure 147/72 08/23/17 09:42 O2 Sat by Pulse Oximetry (%) 95 08/21/17 06:00 Constitutional: Yes: Calm HENT: Yes: Atraumatic Neck: Yes: Supple Cardiovascular: Yes: Regular Rate and Rhythm Respiratory: Yes: Rhonchi Gastrointestinal: Yes: Distention, Hypoactive Bowel Sounds Extremities: Yes: WNL Neurological: Yes: Alert, Oriented Labs: Labs: CBC, BMP 08/22/17 07:30 08/23/17 07:00 INR, PTT INR 1.32 (0.82-1.09) H 08/12/17 07:45 - ....Imaging Other: Report Reviewed (KUB; SBP persistent.) Problem List - Problems (1) Acute diverticulitis Assessment/Plan: On IV abx improving ID and surgery on the case Code(s): K57.92 - DVTRCLI OF INTEST, PART UNSP, W/O PERF OR ABSCESS W/O BLEED (2) Hx of CABG Assessment/Plan: H/O CAd s/p CABG no active issue Code(s): Z95.1 - PRESENCE OF AORTOCORONARY BYPASS GRAFT (3) [id number] kidney injury Assessment/Plan: H/O CKD satge 4 admitted with ALAN IV Hydration F/U Renal recommendations Code(s): N17.9 - ACUTE KIDNEY FAILURE, UNSPECIFIED; N18.9 - CHRONIC KIDNEY DISEASE, UNSPECIFIED Qualifiers: Acute renal failure type: unspecified Chronic kidney disease stage: stage 4 (severe) Qualified Code(s): N17.9 - Acute kidney failure, unspecified; N18.4 - Chronic kidney disease, stage 4 (severe); N18.4 - Chronic kidney disease , stage 4 (severe); N18.4 - Chronic kidney disease, stage 4 (severe); N18.4 - Chronic kidney disease, stage 4 (severe) (4) Partial small bowel obstruction Assessment/Plan: Due to Ileus and Diverticulitises cont Surgery recommendation Rpt KUB shows obstruction. Code(s): K56.600 - PARTIAL INTESTINAL OBSTRUCTION, UNSPECIFIED TO CAUSE (5) Rectal bleeding Assessment/Plan: Resolved Code(s): K62.5 - HEMORRHAGE OF ANUS AND RECTUM (6) COPD (chronic obstructive pulmonary disease) Assessment/Plan: Cont current management. Code(s): J44.9 - CHRONIC OBSTRUCTIVE PULMONARY DISEASE, UNSPECIFIED
--- NOTE | 2017-08-23 12:23 | PN ---
Progress Note, Physician Chief Complaint: small bowel obstruction History of Present Illness: 71 yo male with a MMP with history of intermittent constipation. Patient states he had a colonoscopy 5 years previous which was normal. CTscan on 08/17 shows distended stomach and small bowel, contrast was very proximal. Only previous abdominal surgery was an open appendectomy. abdominal pain is improved today, had oral contrast for xray follow though, reports no BM or flatus in past 2 days. - Current Medication List Current Medications: Active Medications Acetaminophen (Ofirmev Injection -) 1,000 mg IVPB Q6H PRN PRN Reason: FEVER OR PAIN Last Admin: 08/20/17 15:38 Dose: 1,000 mg Atorvastatin Calcium (Lipitor -) 20 mg PO HS EDY Last Admin: 08/22/17 21:50 Dose: Not Given Budesonide/Formoterol Fumarate (Symbicort 160/4.5mcg -) 1 puff IH DAILY EDY Last Admin: 08/22/17 11:56 Dose: 1 puff Calcium Carbonate (Calcium Carb Oral Suspension -) 500 mg PO DAILY EDY Last Admin: 08/23/17 10:14 Dose: Not Given Carvedilol (Coreg -) 12.5 mg PO BID EDY Last Admin: 08/23/17 10:13 Dose: Not Given Fluticasone Propionate (Flonase -) 1 spray NS BID EDY Last Admin: 08/23/17 10:14 Dose: Not Given Hydromorphone HCl (Dilaudid Injection -) 1 mg IVPB Q4H PRN PRN Reason: PAIN Last Admin: 08/22/17 16:20 Dose: 1 mg Dextrose/Sodium Chloride (D5-1/2ns -) 1,000 mls @ 100 mls/hr IV ASDIR EDY Last Admin: 08/22/17 18:04 Dose: 100 mls/hr Amino Acids (Clinimix -) 1,000 mls @ 42 mls/hr IV DAILY EDY Last Admin: 08/23/17 10:14 Dose: Not Given Piperacillin Sod/Tazobactam (Sod 2.25 gm/ Dextrose) 100 mls @ 200 mls/hr IVPB Q8H-IV EDY Lorazepam (Ativan Injection -) 1 mg IVPUSH Q6H-IV EDY Stop: 08/23/17 23:59 Last Admin: 08/23/17 10:48 Dose: Not Given Montelukast Sodium (Singulair -) 10 mg PO HS [facility] Last Admin: 08/22/17 21:50 Dose: Not Given Xopenex Hfa Inhaler (Non-Formulary Med) 1 each IH Q6H PRN PRN Reason: SHORT OF BREATH/WHEEZING Last Admin: 08/11/17 23:06 Dose: 1 each Ondansetron HCl (Zofran Injection) 4 mg IVPUSH Q4H PRN PRN Reason: NAUSEA AND/OR VOMITING Last Admin: 08/18/17 11:20 Dose: 4 mg Pancrelipase (Creon Dr 36,000 Units Capsule) 1 cap PO TIDCM [facility] Last Admin: 08/23/17 10:14 Dose: Not Given Pantoprazole Sodium (Protonix Iv) 40 mg IVPUSH DAILY [facility] Last Admin: 08/23/17 10:13 Dose: 40 mg Saliva Substitute (Mouthkote Solution -) 1 applic MM DAILY [facility] Last Admin: 08/22/17 09:16 Dose: 1 applic Tamsulosin HCl (Flomax -) 0.4 mg PO [facility] Last Admin: 08/22/17 21:50 Dose: Not Given Tiotropium [place] (Spiriva -) 1 puff IH DAILY [facility] Last Admin: 08/22/17 09:15 Dose: 1 puff Trazodone HCl (Desyrel -) 100 mg PO [facility] Last Admin: 08/22/17 21:50 Dose: Not Given Zolpidem Tartrate (Ambien -) 5 mg PO HS PRN PRN Reason: INSOMNIA - Objective Vital Signs: Vital Signs Temperature 97.7 F 08/23/17 09:42 Pulse Rate 61 08/23/17 09:42 Respiratory Rate 18 08/23/17 09:42 Blood Pressure 147/72 08/23/17 09:42 O2 Sat by Pulse Oximetry (%) 95 08/21/17 06:00 Vital Signs Period Temp Pulse Resp BP Sys/Whitaker Pulse Ox Last 24 Hr 97.7 F-98.6 F 60-63 17-21 121-147/50-72 Intake & Output 08/22/17 08/23/17 08/23/17 23:59 07:59 15:59 Intake Total 1450 604 Output Total 450 Balance 1000 604 Weight 180 lb 14.4 oz Intake: IV 1000 504 Clinimix @ 42 mls/hr 504 D5-1/2Ns - 1,000 ml @ 100 1000 mls/hr IV ASDIR EDY Rx#: [id number] IVPB 450 100 Oral 0 Output: Gastric Drainage 50 Urine 400 Void 400 Other: Voiding Method Urinal Urinal Weight Measurement Method Built in [facility] Constitutional: Yes: No Distress, Calm, Obese Eyes: Yes: Conjunctiva Clear, EOM Intact HENT: Yes: Atraumatic, Normocephalic Neck: Yes: Supple, Trachea Midline Cardiovascular: Yes: Regular Rate and Rhythm, S1, S2. No: Murmur Respiratory: Yes: Regular, CTA Bilaterally Gastrointestinal: Yes: Soft, Distention, Hyperactive Bowel Sounds, Tenderness. No: Tenderness, Epigastrium, Tenderness, Rebound Edema: No Peripheral Pulses WNL: Yes Neurological: Yes: Alert, Oriented Psychiatric: Yes: Alert Labs: CBC, BMP 08/22/17 07:30 08/23/17 07:00 INR, PTT INR 1.32 (0.82-1.09) H 08/12/17 07:45 - ....Imaging X-ray: Report Reviewed, Image Reviewed Problem List - Problems (1) SBO (small bowel obstruction) Assessment/Plan: 71yo male MMP presents with a partial SBO, h/o appendectomy, recent normal colonoscopy, more likely paralytics ileus which appeared to be resolving last night but is worse today. (He has cups of water from the bathroom). NGT discontinued yesterday no vomiting, however abdominal distension is worse on exam. He refused his IV placement and had not had IVF since last night. WBC is down today to 12. Still SBO pattern in Xray. Had some comfort concerns addressed dosing for anxiety and insomnia, help with bathing. NPO and IVF hydration NGT to LCWS Consider PICC and TPN given length of NPO at this point Abdominal xray in AM to follow contrast will follow for serial exams Contrast follow thorough help with bathing ambien prn insomnia ativan prn anxiety Would consider diagnostic laparoscopy possible, exploratory laparotomy, possible bowel ressection, possible ostomy if not improved for 08/24 will discuss with patient risks, benefits and alternatives of laparoscopic possible open ectomy, including but not limited to bleeding, infection, injury to adjacent structures, leak or injury, intraabdominal abscess, need for further procedures, ; alternatives include antibiotics, delayed or no surgery - risks of this include failure of nonoperative therapy, perforation, sepsis, recurrence, . if patient desires to proceed with operation - will take to OR for above. Informed consent signed for same. Code(s): K56.609 - UNSP INTESTNL OBST, UNSP TO PARTIAL VERSUS COMPLETE OBST (2) Abdominal pain Code(s): R10.9 - UNSPECIFIED ABDOMINAL PAIN Qualifiers: Abdominal location: unspecified location Qualified Code(s): R10.9 - Unspecified abdominal pain (3) Ileus, unspecified Code(s): K56.7 - ILEUS, UNSPECIFIED (4) Acute diverticulitis Code(s): K57.92 - DVTRCLI OF INTEST, PART UNSP, W/O PERF OR ABSCESS W/O BLEED (5) Anemia Code(s): D64.9 - ANEMIA, UNSPECIFIED Qualifiers: Anemia type: unspecified type Qualified Code(s): D64.9 - Anemia, unspecified (6) Hypercholesterolemia Code(s): E78.00 - PURE HYPERCHOLESTEROLEMIA, UNSPECIFIED (7) CHF Congestive heart failure Code(s): I50.9 - HEART FAILURE, UNSPECIFIED
[2017-08-23] MEDS: LYTES/YERBA SANTA 240 ML BOTTLE MM SCH (14:32)
--- NOTE | 2017-08-23 14:32 | PN ---
Progress Note, Physician History of Present Illness: Pt seen and examined at bedside. He is awake and alert. He denies shortness of breath. - Current Medication List Current Medications: Active Medications Acetaminophen (Ofirmev Injection -) 1,000 mg IVPB Q6H PRN PRN Reason: FEVER OR PAIN Last Admin: 08/20/17 15:38 Dose: 1,000 mg Atorvastatin Calcium (Lipitor -) 20 mg PO HS EDY Last Admin: 08/22/17 21:50 Dose: Not Given Budesonide/Formoterol Fumarate (Symbicort 160/4.5mcg -) 1 puff IH DAILY EDY Last Admin: 08/22/17 11:56 Dose: 1 puff Calcium Carbonate (Calcium Carb Oral Suspension -) 500 mg PO DAILY EDY Last Admin: 08/23/17 10:14 Dose: Not Given Carvedilol (Coreg -) 12.5 mg PO BID EDY Last Admin: 08/23/17 10:13 Dose: Not Given Fluticasone Propionate (Flonase -) 1 spray NS BID EDY Last Admin: 08/23/17 10:14 Dose: Not Given Hydromorphone HCl (Dilaudid Injection -) 1 mg IVPB Q4H PRN PRN Reason: PAIN Last Admin: 08/22/17 16:20 Dose: 1 mg Dextrose/Sodium Chloride (D5-1/2ns -) 1,000 mls @ 100 mls/hr IV ASDIR EDY Last Admin: 08/22/17 18:04 Dose: 100 mls/hr Amino Acids (Clinimix -) 1,000 mls @ 42 mls/hr IV DAILY EDY Last Admin: 08/23/17 10:14 Dose: Not Given Piperacillin Sod/Tazobactam (Sod 2.25 gm/ Dextrose) 100 mls @ 200 mls/hr IVPB Q8H-IV EDY Lorazepam (Ativan Injection -) 1 mg IVPUSH Q6H-IV EDY Stop: 08/23/17 23:59 Last Admin: 08/23/17 10:48 Dose: Not Given Montelukast Sodium (Singulair -) 10 mg PO HS EDY Last Admin: 08/22/17 21:50 Dose: Not Given Xopenex Hfa Inhaler (Non-Formulary Med) 1 each IH Q6H PRN PRN Reason: SHORT OF BREATH/WHEEZING Last Admin: 08/11/17 23:06 Dose: 1 each Ondansetron HCl (Zofran Injection) 4 mg IVPUSH Q4H PRN PRN Reason: NAUSEA AND/OR VOMITING Last Admin: 08/18/17 11:20 Dose: 4 mg Pancrelipase (Creon Dr 36,000 Units Capsule) 1 cap PO TIDCM [facility] Last Admin: 08/23/17 10:14 Dose: Not Given Pantoprazole Sodium (Protonix Iv) 40 mg IVPUSH DAILY [facility] Last Admin: 08/23/17 10:13 Dose: 40 mg Saliva Substitute (Mouthkote Solution -) 1 applic MM DAILY [facility] Last Admin: 08/22/17 09:16 Dose: 1 applic Tamsulosin HCl (Flomax -) 0.4 mg PO HS [facility] Last Admin: 08/22/17 21:50 Dose: Not Given Tiotropium [place] (Spiriva -) 1 puff IH DAILY [facility] Last Admin: 08/22/17 09:15 Dose: 1 puff Trazodone HCl (Desyrel -) 100 mg PO HS [facility] Last Admin: 08/22/17 21:50 Dose: Not Given Zolpidem Tartrate (Ambien -) 5 mg PO HS PRN PRN Reason: INSOMNIA - Objective Vital Signs: Vital Signs Temperature 97.3 F L 08/23/17 14:00 Pulse Rate 67 08/23/17 14:00 Respiratory Rate 20 08/23/17 14:00 Blood Pressure 147/76 08/23/17 14:00 O2 Sat by Pulse Oximetry (%) 95 08/21/17 06:00 Constitutional: Yes: Calm Eyes: Yes: Conjunctiva Clear HENT: Yes: Atraumatic Neck: Yes: Supple Cardiovascular: Yes: S1, S2 Respiratory: Yes: Wheezes Gastrointestinal: Yes: Soft Genitourinary: Yes: WNL Musculoskeletal: Yes: WNL Edema: Yes Edema: LLE: 1+, RLE: 1+ Neurological: Yes: Oriented Psychiatric: Yes: Oriented Labs: CBC, BMP 08/22/17 07:30 08/23/17 07:00 INR, PTT INR 1.32 (0.82-1.09) H 08/12/17 07:45 Problem List - Problems (1) CKD (chronic kidney disease) Code(s): N18.9 - CHRONIC KIDNEY DISEASE, UNSPECIFIED Qualifiers: Chronic kidney disease stage: stage 4 (severe) Qualified Code(s): N18.4 - Chronic kidney disease, stage 4 (severe) (2) Anemia Code(s): D64.9 - ANEMIA, UNSPECIFIED Qualifiers: Anemia type: unspecified type Qualified Code(s): D64.9 - Anemia, unspecified (3) Abdominal pain Code(s): R10.9 - UNSPECIFIED ABDOMINAL PAIN Qualifiers: Abdominal location: unspecified location Qualified Code(s): R10.9 - Unspecified abdominal pain (4) Rectal bleeding Code(s): K62.5 - HEMORRHAGE OF ANUS AND RECTUM (5) Acute exacerbation of COPD with asthma Code(s): J44.1 - CHRONIC OBSTRUCTIVE PULMONARY DISEASE W (ACUTE) EXACERBATION; J45.901 - UNSPECIFIED ASTHMA WITH (ACUTE) EXACERBATION (6) CHF (congestive heart failure) Code(s): I50.9 - HEART FAILURE, UNSPECIFIED Qualifiers: Congestive heart failure type: combined Congestive heart failure chronicity : acute on chronic Qualified Code(s): I50.43 - Acute on chronic combined systolic (congestive) and diastolic (congestive) heart failure Assessment/Plan Current Medications Generic Name Dose Route Start Last Admin Trade Name Freq PRN Reason Stop Dose Admin Acetaminophen 1,000 mg 08/19/17 18:30 08/20/17 15:38 Ofirmev Injection - IVPB 1,000 mg Q6H PRN Administration FEVER OR PAIN Atorvastatin Calcium 20 mg 08/10/17 20:15 08/22/17 21:50 Lipitor - PO Not Given HS EDY Budesonide/Formoterol Fumarate 1 puff 08/11/17 10:00 08/22/17 11:56 Symbicort 160/4.5mcg - IH 1 puff DAILY EDY Administration Calcium Carbonate 500 mg 08/11/17 16:30 08/23/17 10:14 Calcium Carb Oral Suspension - PO Not Given DAILY EDY Carvedilol 12.5 mg 08/12/17 22:00 08/23/17 10:13 Coreg - PO Not Given BID EDY Fluticasone Propionate 1 spray 08/10/17 22:00 08/23/17 10:14 Flonase - NS Not Given BID EDY Hydromorphone HCl 1 mg 08/22/17 14:17 08/22/17 16:20 Dilaudid Injection - IVPB 1 mg Q4H PRN Administration PAIN Dextrose/Sodium Chloride 1,000 mls @ 100 mls/hr 08/21/17 14:30 08/22/17 18:04 D5-1/2ns - IV 100 mls/hr ASDIR EDY Administration Amino Acids 1,000 mls @ 42 mls/hr 08/22/17 19:00 08/23/17 10:14 Clinimix - IV Not Given DAILY EDY Piperacillin Sod/Tazobactam 100 mls @ 200 mls/hr 08/23/17 18:00 Sod 2.25 gm/ Dextrose IVPB Q8H-IV EDY Lorazepam 1 mg 08/22/17 21:00 08/23/17 10:48 Ativan Injection - IVPUSH 08/23/17 23:59 Not Given Q6H-IV EDY Montelukast Sodium 10 mg 08/10/17 20:15 08/22/17 21:50 Singulair - PO Not Given HS EDY Xopenex Hfa Inhaler 1 each 08/10/17 23:14 08/11/17 23:06 Non-Formulary Med IH 1 each Q6H PRN Administration SHORT OF BREATH/WHEEZING Ondansetron HCl 4 mg 08/17/17 09:36 08/18/17 11:20 Zofran Injection IVPUSH 4 mg Q4H PRN Administration NAUSEA AND/OR VOMITING Pancrelipase 1 cap 08/14/17 08:00 08/23/17 10:[address] 36,000 Units Capsule PO Not Given TIDCM EDY Pantoprazole Sodium 40 mg 08/19/17 20:15 08/23/17 10:13 Protonix Iv IVPUSH 40 mg DAILY EDY Administration Saliva Substitute 1 applic 08/21/17 15:30 08/22/17 09:16 Mouthkote Solution - MM 1 applic DAILY EDY Administration Tamsulosin HCl 0.4 mg 08/10/17 20:15 08/22/17 21:50 Flomax - PO Not Given HS EDY Tiotropium [place] 1 puff 08/11/17 10:00 08/22/17 09:15 Spiriva - IH 1 puff DAILY EDY Administration Trazodone HCl 100 mg 08/10/17 22:00 08/22/17 21:50 Desyrel - PO Not Given HS EDY Zolpidem Tartrate 5 mg 08/22/17 15:35 Ambien - PO HS PRN INSOMNIA Impression 1. CKD 2. ALAN 3. anemia 4. GI bleed 5. BPH 6. a-fib 7. aortic aneurysm 8. COPD 9. insomnia 10. SBO Plan - renal function is improved today - cont fluids, decrease rate - discussed with surgery, possible OR tomorrow - recommend pulmonary eval for optimization - will evaluate for HD daily - called and discussed with pts daughter again today - monitor blood pressure - surgery follow up appreciated - reviewed abd film - maintain NG tube - keep pt NPO per surgery - keep arb on hold - will follow closely Dr Ortega
[2017-08-23] MEDS: TIOTROPIUM BROMIDE 18 MCG/INH (DEVICE W/ 5 CAPSULES) IH SCH (15:34)
[2017-08-23] MEDS: BUDESONIDE/FORMETEROL FUMARATE 160/4.5 mcg INHALER IH SCH (15:35)
[2017-08-23] MEDS: PIPERACILLIN/TAZOB 2.25 GM 2.25 GM in DEXTROSE 5%-WATER - 100 ML IVPB SCH (19:06)
--- NOTE | 2017-08-23 20:59 | PN ---
Progress Note, Physician Chief Complaint: Events noted. Patient was seen in the morning Patient appears uncomfortable with NG Renal function improved History of Present Illness: Patient was seen and examined. Awake and alert. Chart was reviewed Denies chest pain, SOB or palpitation As outlined above Surgery input noted - Current Medication List Current Medications: Active Medications Acetaminophen (Ofirmev Injection -) 1,000 mg IVPB Q6H PRN PRN Reason: FEVER OR PAIN Last Admin: 08/20/17 15:38 Dose: 1,000 mg Atorvastatin Calcium (Lipitor -) 20 mg PO HS EDY Last Admin: 08/22/17 21:50 Dose: Not Given Budesonide/Formoterol Fumarate (Symbicort 160/4.5mcg -) 1 puff IH DAILY EDY Last Admin: 08/23/17 15:35 Dose: Not Given Calcium Carbonate (Calcium Carb Oral Suspension -) 500 mg PO DAILY EDY Last Admin: 08/23/17 10:14 Dose: Not Given Carvedilol (Coreg -) 12.5 mg PO BID EDY Last Admin: 08/23/17 10:13 Dose: Not Given Fluticasone Propionate (Flonase -) 1 spray NS BID EDY Last Admin: 08/23/17 10:14 Dose: Not Given Hydromorphone HCl (Dilaudid Injection -) 1 mg IVPB Q4H PRN PRN Reason: PAIN Last Admin: 08/22/17 16:20 Dose: 1 mg Dextrose/Sodium Chloride (D5-1/2ns -) 1,000 mls @ 100 mls/hr IV ASDIR EDY Last Admin: 08/22/17 18:04 Dose: 100 mls/hr Amino Acids (Clinimix -) 1,000 mls @ 42 mls/hr IV DAILY EDY Last Admin: 08/23/17 19:06 Dose: 42 mls/hr Piperacillin Sod/Tazobactam (Sod 2.25 gm/ Dextrose) 100 mls @ 200 mls/hr IVPB Q8H-IV EDY Last Admin: 08/23/17 19:06 Dose: 200 mls/hr Lorazepam (Ativan Injection -) 1 mg IVPUSH Q6H-IV EDY Stop: 08/23/17 23:59 Last Admin: 08/23/17 16:27 Dose: 1 mg Montelukast Sodium (Singulair -) 10 mg PO HS EDY Last Admin: 08/22/17 21:50 Dose: Not Given Xopenex Hfa Inhaler (Non-Formulary Med) 1 each IH Q6H PRN PRN Reason: SHORT OF BREATH/WHEEZING Last Admin: 08/11/17 23:06 Dose: 1 each Ondansetron HCl (Zofran Injection) 4 mg IVPUSH Q4H PRN PRN Reason: NAUSEA AND/OR VOMITING Last Admin: 08/18/17 11:20 Dose: 4 mg Pancrelipase (Creon Dr 36,000 Units Capsule) 1 cap PO TIDCM [facility] Last Admin: 08/23/17 17:16 Dose: Not Given Pantoprazole Sodium (Protonix Iv) 40 mg IVPUSH DAILY [facility] Last Admin: 08/23/17 10:13 Dose: 40 mg Saliva Substitute (Mouthkote Solution -) 1 applic MM DAILY [facility] Last Admin: 08/23/17 14:32 Dose: Not Given Tamsulosin HCl (Flomax -) 0.4 mg PO [facility] Last Admin: 08/22/17 21:50 Dose: Not Given Tiotropium [place] (Spiriva -) 1 puff IH DAILY [facility] Last Admin: 08/23/17 15:34 Dose: Not Given Trazodone HCl (Desyrel -) 100 mg PO HS [facility] Last Admin: 08/22/17 21:50 Dose: Not Given Zolpidem Tartrate (Ambien -) 5 mg PO HS PRN PRN Reason: INSOMNIA - Objective Vital Signs: Vital Signs Temperature 98.4 F 08/23/17 18:00 Pulse Rate 69 08/23/17 18:00 Respiratory Rate 21 08/23/17 18:00 Blood Pressure 145/83 08/23/17 18:00 O2 Sat by Pulse Oximetry (%) 98 08/23/17 08:00 Eyes: Yes: PERRL HENT: Yes: Atraumatic Neck: Yes: Supple Cardiovascular: Yes: Regular Rate and Rhythm, S1, S2 Respiratory: Yes: Diminished Gastrointestinal: Yes: Distention, Tenderness Edema: Yes Edema: LLE: 2+, RLE: 2+ Additional Findings/Remarks: - Review of Systems Constitutional: denies: Chills, Fever Cardiovascular: denies: Chest Pain, Palpitations, Shortness of Breath Respiratory: denies: Cough, Hemoptysis, Orthopnea, PND, SOB, SOB on Exertion Gastrointestinal: reports: Abdominal Pain, Diarrhea, Melena, Rectal Bleeding. denies: Constipation, (+) Nausea, (+) Vomiting Genitourinary: denies: Dysuria, Hematuria Musculoskeletal: denies: Joint Pain Neurological: denies: Dizziness, Headache, Seizure, Syncope Labs: CBC, BMP 08/22/17 07:30 08/23/17 07:00 Problem List - Problems (1) CVD (cerebrovascular disease) Code(s): I67.9 - CEREBROVASCULAR DISEASE, UNSPECIFIED (2) Hypercholesterolemia Code(s): E78.00 - PURE HYPERCHOLESTEROLEMIA, UNSPECIFIED (3) Sick sinus syndrome Code(s): I49.5 - SICK SINUS SYNDROME (4) Presence of permanent cardiac pacemaker Code(s): Z95.0 - PRESENCE OF CARDIAC PACEMAKER (5) Hx of CABG Code(s): Z95.1 - PRESENCE OF AORTOCORONARY BYPASS GRAFT (6) Abdominal pain Code(s): R10.9 - UNSPECIFIED ABDOMINAL PAIN Qualifiers: Abdominal location: unspecified location Qualified Code(s): R10.9 - Unspecified abdominal pain (7) Acute diverticulitis Code(s): K57.92 - DVTRCLI OF INTEST, PART UNSP, W/O PERF OR ABSCESS W/O BLEED (8) Anemia Code(s): D64.9 - ANEMIA, UNSPECIFIED Qualifiers: Anemia type: unspecified type Qualified Code(s): D64.9 - Anemia, unspecified (9) CKD (chronic kidney disease) Code(s): N18.9 - CHRONIC KIDNEY DISEASE, UNSPECIFIED Qualifiers: Chronic kidney disease stage: stage 4 (severe) Qualified Code(s): N18.4 - Chronic kidney disease, stage 4 (severe) (10) Rectal bleeding Code(s): K62.5 - HEMORRHAGE OF ANUS AND RECTUM (11) CHF (congestive heart failure) Code(s): I50.9 - HEART FAILURE, UNSPECIFIED Qualifiers: Congestive heart failure type: combined Congestive heart failure chronicity : acute on chronic Qualified Code(s): I50.43 - Acute on chronic combined systolic (congestive) and diastolic (congestive) heart failure (12) Partial small bowel obstruction Code(s): K56.600 - PARTIAL INTESTINAL OBSTRUCTION, UNSPECIFIED TO CAUSE Assessment/Plan 1. Rectal bleed, underlying diverticulitis with partial SBO with dilated small bowel loops - persistent abdominal process 2. CAD s/p CABG, angina pectoris 3. Persistent AF with underlying PPM for sick sinus syndrome 4. Acute on CKD with creatinine improved 5. Hypercholesterolemia 6. CVA/TIA 7. COPD 8. TAA and AAA PLAN: 1. GI and surgery input noted. Possible surgery planned tomorrow.Patient is at a high risk based on co-morbidities, but may proceed as it appears deemed necessary in view of persistent acute abdominal process. Post operative ECG, cardiac enzyme and monitoring 2. Monitor renal function and continue gentle hydration 3. Continue Carvedilol as tolerated and if able to take PO - currently held 4. Continue Atorvastatin if able to take PO (currently held) 5. Monitor CBC and transfuse PRBC as needed 6. TAA and AAA likely also needs surveillance probably not ready for intervention Further plans are to follow. Currently he is off Eliquis, but will need to resume once cleared after current event with the diverticulitis and partial SBO Guarded Klever Marti MD
[2017-08-23] MEDS: TAMSULOSIN HCL 0.4 MG CAP.ER.24H (FP) PO SCH (21:07)
[2017-08-23] MEDS: traZODone HCL 100 MG TABLET (FP) PO SCH (21:07)
[2017-08-23] MEDS: MONTELUKAST NA 10 MG TABLET PO SCH (21:08)
[2017-08-23] MEDS: ATORVASTATIN CA 20 MG TABLET (FP) PO SCH (21:08)
[2017-08-24] MEDS ORDERED: PT OWN MED DRAWER 7, Y5N ONE ×4 (02:17→20:53)
[2017-08-24] MEDS: PIPERACILLIN/TAZOB 2.25 GM 2.25 GM in DEXTROSE 5%-WATER - 100 ML IVPB SCH ×3 (02:28→18:27)
[2017-08-24] MEDS: AMINO ACIDS 4.25%/D5W 1,000 ML IV SCH ×2 (03:24→11:56)
[2017-08-24] MEDS: LIPASE/PROTEASE/AMYLASE 36,000 UNIT CAPSULE PO SCH ×3 (08:15→18:27)
[2017-08-24 08:46] LABS: BASO % 0.3 % (0-2.0); EOS % 0.8 % (0-4.5); HEMATOCRIT 27.4 % (35.4-49); HEMOGLOBIN 8.9 GM/dL (11.7-16.9); LYMPH % 4.2 % (8-40); MCH 29.2 pg (25.7-33.7); MCHC 32.6 g/dl (32.0-35.9); MEAN CELL VOLUME 89.6 fl (80-96); MEAN PLT VOLUME 7.9 fl (7.5-11.1); NEUT % 83.7 % (42.8-82.8); PLATELET COUNT 169 K/MM3 (134-434); RBC 3.06 M/mm3 (4.00-5.60); RDW 15.3 % (11.9-15.9); WHITE BLOOD COUNT 10.5 K/mm3 (4.0-10.0)
[2017-08-24 09:17] LABS: ANION GAP 16 (8-16); CALCIUM 8.1 mg/dL (8.5-10.1); CHLORIDE 109 mmol/L (98-107); CO2 17 mmol/L (21-32); GLUCOSE,RANDOM 103 mg/dL (74-106); POTASSIUM 3.2 mmol/L (3.5-5.1); SODIUM 142 mmol/L (136-145)
--- NOTE | 2017-08-24 09:41 | PN ---
Progress Note, Physician Chief Complaint: Says he had BM History of Present Illness: Admitted with partial SB obstruction Case discussed with surgeon,he will reevaluate the patient - Current Medication List Current Medications: Active Medications Acetaminophen (Ofirmev Injection -) 1,000 mg IVPB Q6H PRN PRN Reason: FEVER OR PAIN Last Admin: 08/20/17 15:38 Dose: 1,000 mg Atorvastatin Calcium (Lipitor -) 20 mg PO HS EDY Last Admin: 08/23/17 21:08 Dose: Not Given Budesonide/Formoterol Fumarate (Symbicort 160/4.5mcg -) 1 puff IH DAILY [facility] Last Admin: 08/23/17 15:35 Dose: Not Given Calcium Carbonate (Calcium Carb Oral Suspension -) 500 mg PO DAILY [facility] Last Admin: 08/23/17 10:14 Dose: Not Given Carvedilol (Coreg -) 12.5 mg PO BID [facility] Last Admin: 08/23/17 21:07 Dose: Not Given Fluticasone Propionate (Flonase -) 1 spray NS BID [facility]Y Last Admin: 08/23/17 21:08 Dose: Not Given Hydromorphone HCl (Dilaudid Injection -) 1 mg IVPB Q4H PRN PRN Reason: PAIN Last Admin: 08/22/17 16:20 Dose: 1 mg Dextrose/Sodium Chloride (D5-1/2ns -) 1,000 mls @ 100 mls/hr IV ASDIR EDY Last Admin: 08/22/17 18:04 Dose: 100 mls/hr Amino Acids (Clinimix -) 1,000 mls @ 42 mls/hr IV DAILY [facility] Last Admin: 08/24/17 03:24 Dose: 42 mls/hr Piperacillin Sod/Tazobactam (Sod 2.25 gm/ Dextrose) 100 mls @ 200 mls/hr IVPB Q8H-IV [facility]Y Last Admin: 08/24/17 02:28 Dose: 200 mls/hr Montelukast Sodium (Singulair -) 10 mg PO HS [facility] Last Admin: 08/23/17 21:08 Dose: Not Given Xopenex Hfa Inhaler (Non-Formulary Med) 1 each IH Q6H PRN PRN Reason: SHORT OF BREATH/WHEEZING Last Admin: 08/11/17 23:06 Dose: 1 each Ondansetron HCl (Zofran Injection) 4 mg IVPUSH Q4H PRN PRN Reason: NAUSEA AND/OR VOMITING Last Admin: 08/18/17 11:20 Dose: 4 mg Pancrelipase (Creon Dr 36,000 Units Capsule) 1 cap PO TIDCM [facility] Last Admin: 08/24/17 08:15 Dose: Not Given Pantoprazole Sodium (Protonix Iv) 40 mg IVPUSH DAILY [facility] Last Admin: 08/23/17 10:13 Dose: 40 mg Saliva Substitute (Mouthkote Solution -) 1 applic MM DAILY [facility] Last Admin: 08/23/17 14:32 Dose: Not Given Tamsulosin HCl (Flomax -) 0.4 mg PO HS [facility] Last Admin: 08/23/17 21:07 Dose: Not Given Tiotropium [place] (Spiriva -) 1 puff IH DAILY [facility] Last Admin: 08/23/17 15:34 Dose: Not Given Trazodone HCl (Desyrel -) 100 mg PO HS [facility] Last Admin: 08/23/17 21:07 Dose: Not Given Zolpidem Tartrate (Ambien -) 5 mg PO HS PRN PRN Reason: INSOMNIA - Objective Vital Signs: Vital Signs Temperature 98.4 F 08/24/17 05:32 Pulse Rate 60 08/24/17 05:32 Respiratory Rate 20 08/24/17 05:32 Blood Pressure 120/64 08/24/17 05:32 O2 Sat by Pulse Oximetry (%) 98 08/24/17 00:00 Constitutional: Yes: Mild Distress Eyes: Yes: WNL HENT: Yes: WNL Neck: Yes: WNL Cardiovascular: Yes: WNL Respiratory: Yes: WNL Gastrointestinal: Yes: Distention, Hypoactive Bowel Sounds Neurological: Yes: Alert Labs: CBC, BMP 08/24/17 08:30 08/24/17 08:30 INR, PTT INR 1.32 (0.82-1.09) H 08/12/17 07:45 Assessment/Plan Add KCL
[2017-08-24] MEDS ORDERED: KCL 10 MEQ IVPB 10 MEQ/100 ML INFUS.BAG IVPB SCH (10:00)
--- NOTE | 2017-08-24 10:05 | PN ---
Progress Note, Physician Chief Complaint: small bowel obstruction History of Present Illness: 71 yo male with a MMP with history of intermittent constipation. Patient states he had a colonoscopy 5 years previous which was normal. CTscan on 08/17 shows distended stomach and small bowel, contrast was very proximal. Only previous abdominal surgery was an open appendectomy. abdominal pain is improved today, he reports two large bowel movements containing liquids and solids, NGT was self discontinued this morning. - Current Medication List Current Medications: Active Medications Acetaminophen (Ofirmev Injection -) 1,000 mg IVPB Q6H PRN PRN Reason: FEVER OR PAIN Last Admin: 08/20/17 15:38 Dose: 1,000 mg Atorvastatin Calcium (Lipitor -) 20 mg PO HS [facility] Last Admin: 08/23/17 21:08 Dose: Not Given Budesonide/Formoterol Fumarate (Symbicort 160/4.5mcg -) 1 puff IH DAILY [facility] Last Admin: 08/23/17 15:35 Dose: Not Given Calcium Carbonate (Calcium Carb Oral Suspension -) 500 mg PO DAILY [facility] Last Admin: 08/23/17 10:14 Dose: Not Given Carvedilol (Coreg -) 12.5 mg PO BID [facility] Last Admin: 08/23/17 21:07 Dose: Not Given Fluticasone Propionate (Flonase -) 1 spray NS BID [facility] Last Admin: 08/23/17 21:08 Dose: Not Given Hydromorphone HCl (Dilaudid Injection -) 1 mg IVPB Q4H PRN PRN Reason: PAIN Last Admin: 08/22/17 16:20 Dose: 1 mg Dextrose/Sodium Chloride (D5-1/2ns -) 1,000 mls @ 100 mls/hr IV ASDIR [facility] Last Admin: 08/22/17 18:04 Dose: 100 mls/hr Amino Acids (Clinimix -) 1,000 mls @ 42 mls/hr IV DAILY [facility] Last Admin: 08/24/17 03:24 Dose: 42 mls/hr Piperacillin Sod/Tazobactam (Sod 2.25 gm/ Dextrose) 100 mls @ 200 mls/hr IVPB Q8H-IV [facility] Last Admin: 08/24/17 02:28 Dose: 200 mls/hr Potassium Chloride (Potassium Chloride 10 Meq Premix Ivpb -) 10 meq in 100 mls @ 100 mls/hr IVPB Q60M [facility] Stop: 08/24/17 12:59 Montelukast Sodium (Singulair -) 10 mg PO [facility] Last Admin: 08/23/17 21:08 Dose: Not Given Xopenex Hfa Inhaler (Non-Formulary Med) 1 each IH Q6H PRN PRN Reason: SHORT OF BREATH/WHEEZING Last Admin: 08/11/17 23:06 Dose: 1 each Ondansetron HCl (Zofran Injection) 4 mg IVPUSH Q4H PRN PRN Reason: NAUSEA AND/OR VOMITING Last Admin: 08/18/17 11:20 Dose: 4 mg Pancrelipase (Creon Dr 36,000 Units Capsule) 1 cap PO TIDCM [facility] Last Admin: 08/24/17 08:15 Dose: Not Given Pantoprazole Sodium (Protonix Iv) 40 mg IVPUSH DAILY [facility] Last Admin: 08/23/17 10:13 Dose: 40 mg Saliva Substitute (Mouthkote Solution -) 1 applic MM DAILY [facility] Last Admin: 08/23/17 14:32 Dose: Not Given Tamsulosin HCl (Flomax -) 0.4 mg PO [facility] Last Admin: 08/23/17 21:07 Dose: Not Given Tiotropium [place] (Spiriva -) 1 puff IH DAILY [facility] Last Admin: 08/23/17 15:34 Dose: Not Given Trazodone HCl (Desyrel -) 100 mg PO HS [facility] Last Admin: 08/23/17 21:07 Dose: Not Given Zolpidem Tartrate (Ambien -) 5 mg PO HS PRN PRN Reason: INSOMNIA - Objective Vital Signs: Vital Signs Temperature 98.4 F 08/24/17 05:32 Pulse Rate 60 08/24/17 05:32 Respiratory Rate 20 08/24/17 05:32 Blood Pressure 120/64 08/24/17 05:32 O2 Sat by Pulse Oximetry (%) 98 08/24/17 00:00 Vital Signs Period Temp Pulse Resp BP Sys/Whitaker Pulse Ox Last 24 Hr 97.3 F-98.4 F 60-71 20-21 100-147/64-83 98-98 Intake & Output 08/23/17 08/24/17 08/24/17 23:59 07:59 15:59 Intake Total 0 504 Output Total 600 200 Balance -600 304 Weight 181 lb Intake: IV 504 Clinimix @ 42 mls/hr 504 Oral 0 Output: Urine 600 200 Void 600 200 Other: Voiding Method Urinal Bowel Movement Yes Yes Weight Measurement Method Built in [facility] Constitutional: Yes: No Distress, Moderate Distress, Obese Eyes: Yes: Conjunctiva Clear, EOM Intact HENT: Yes: Atraumatic, Normocephalic Neck: Yes: Supple, Trachea Midline Cardiovascular: Yes: Murmur, S1, S2 Respiratory: Yes: Regular, CTA Bilaterally Gastrointestinal: Yes: Soft, Distention, Hypoactive Bowel Sounds, Tenderness ( RLQ improved,). No: Tenderness, Epigastrium, Tenderness, Rebound Genitourinary: No: Bladder Distention, CVA Tenderness - Left, CVA Tenderness - Right Neurological: Yes: Alert, Oriented Psychiatric: Yes: Alert, Oriented Labs: CBC, BMP 08/24/17 08:30 08/24/17 08:30 INR, PTT INR 1.32 (0.82-1.09) H 08/12/17 07:45 - ....Imaging X-ray: Report Reviewed, Image Reviewed (less small bowel distension, contrast contouring colon. partial SBO given previous imaging) Problem List - Problems (1) SBO (small bowel obstruction) Assessment/Plan: 71yo male MMP presents with a partial SBO, h/o appendectomy, recent normal colonoscopy, more likely paralytics ileus which appeared to be resolving last night but is worse today. (He has cups of water from the bathroom). NGT discontinued yesterday no vomiting, however abdominal distension is worse on exam. WBC is down today to 10. Still partial SBO pattern in Xray, contrast now contouring the colon. less abdominal distension after two bowel movements today. Will cancel surgery and start clears. Clear liquids f/u labs replete electrolytes encourage ambulation resume oral cardiac medication will follow for serial exams appreciate cardiology input Code(s): K56.609 - UNSP INTESTNL OBST, UNSP TO PARTIAL VERSUS COMPLETE OBST (2) Abdominal pain Code(s): R10.9 - UNSPECIFIED ABDOMINAL PAIN Qualifiers: Abdominal location: unspecified location Qualified Code(s): R10.9 - Unspecified abdominal pain (3) Ileus, unspecified Code(s): K56.7 - ILEUS, UNSPECIFIED (4) Acute diverticulitis Code(s): K57.92 - DVTRCLI OF INTEST, PART UNSP, W/O PERF OR ABSCESS W/O BLEED (5) Anemia Code(s): D64.9 - ANEMIA, UNSPECIFIED Qualifiers: Anemia type: unspecified type Qualified Code(s): D64.9 - Anemia, unspecified (6) Hypercholesterolemia Code(s): E78.00 - PURE HYPERCHOLESTEROLEMIA, UNSPECIFIED (7) CHF Congestive heart failure Code(s): I50.9 - HEART FAILURE, UNSPECIFIED
[2017-08-24 10:18] LABS: BLOOD UREA NITROGEN 108 mg/dL (7-18)
[2017-08-24 10:19] LABS: CREATININE 8.5 mg/dL (0.7-1.3)
[2017-08-24] MEDS ORDERED: POTASSIUM CHLORIDE 20 MEQ PREMIX IVPB 100 ML IVPB ONE (10:32)
[2017-08-24 10:43] LABS: MAGNESIUM 2.1 mg/dL (1.8-2.4); PHOSPHOROUS 6.9 mg/dL (2.5-4.9)
--- NOTE | 2017-08-24 11:12 | PN ---
Progress Note, Physician History of Present Illness: Abd pain and distension improved, NGT self d/gerardo, reports 2 BM, tolerating clear liquid diet without nausea/emesis. - Current Medication List Current Medications: Active Medications Acetaminophen (Ofirmev Injection -) 1,000 mg IVPB Q6H PRN PRN Reason: FEVER OR PAIN Last Admin: 08/20/17 15:38 Dose: 1,000 mg Atorvastatin Calcium (Lipitor -) 20 mg PO HS [facility] Last Admin: 08/23/17 21:08 Dose: Not Given Budesonide/Formoterol Fumarate (Symbicort 160/4.5mcg -) 1 puff IH DAILY [facility] Last Admin: 08/23/17 15:35 Dose: Not Given Calcium Carbonate (Calcium Carb Oral Suspension -) 500 mg PO DAILY [facility] Last Admin: 08/23/17 10:14 Dose: Not Given Carvedilol (Coreg -) 12.5 mg PO BID [facility] Last Admin: 08/23/17 21:07 Dose: Not Given Fluticasone Propionate (Flonase -) 1 spray NS BID [facility] Last Admin: 08/23/17 21:08 Dose: Not Given Hydromorphone HCl (Dilaudid Injection -) 1 mg IVPB Q4H PRN PRN Reason: PAIN Last Admin: 08/22/17 16:20 Dose: 1 mg Dextrose/Sodium Chloride (D5-1/2ns -) 1,000 mls @ 100 mls/hr IV ASDIR [facility] Last Admin: 08/22/17 18:04 Dose: 100 mls/hr Amino Acids (Clinimix -) 1,000 mls @ 42 mls/hr IV DAILY [facility] Last Admin: 08/24/17 03:24 Dose: 42 mls/hr Piperacillin Sod/Tazobactam (Sod 2.25 gm/ Dextrose) 100 mls @ 200 mls/hr IVPB Q8H-IV [facility] Last Admin: 08/24/17 02:28 Dose: 200 mls/hr Montelukast Sodium (Singulair -) 10 mg PO HS [facility] Last Admin: 08/23/17 21:08 Dose: Not Given Xopenex Hfa Inhaler (Non-Formulary Med) 1 each IH Q6H PRN PRN Reason: SHORT OF BREATH/WHEEZING Last Admin: 08/11/17 23:06 Dose: 1 each Ondansetron HCl (Zofran Injection) 4 mg IVPUSH Q4H PRN PRN Reason: NAUSEA AND/OR VOMITING Last Admin: 08/18/17 11:20 Dose: 4 mg Pancrelipase (Creon Dr 36,000 Units Capsule) 1 cap PO TIDCM [facility] Last Admin: 08/24/17 08:15 Dose: Not Given Pantoprazole Sodium (Protonix Iv) 40 mg IVPUSH DAILY [facility] Last Admin: 08/23/17 10:13 Dose: 40 mg Potassium Chloride (Potassium Chloride 20 Meq Premix Ivpb -) 10 meq IVPB ONCE ONE Stop: 08/24/17 10:33 Saliva Substitute (Mouthkote Solution -) 1 applic MM DAILY [facility] Last Admin: 08/23/17 14:32 Dose: Not Given Tamsulosin HCl (Flomax -) 0.4 mg PO HS [facility] Last Admin: 08/23/17 21:07 Dose: Not Given Tiotropium [place] (Spiriva -) 1 puff IH DAILY [facility] Last Admin: 08/23/17 15:34 Dose: Not Given Trazodone HCl (Desyrel -) 100 mg PO HS [facility] Last Admin: 08/23/17 21:07 Dose: Not Given Zolpidem Tartrate (Ambien -) 5 mg PO HS PRN PRN Reason: INSOMNIA - Objective Vital Signs: Vital Signs Temperature 98.4 F 08/24/17 05:32 Pulse Rate 60 08/24/17 05:32 Respiratory Rate 20 08/24/17 05:32 Blood Pressure 120/64 08/24/17 05:32 O2 Sat by Pulse Oximetry (%) 98 08/24/17 00:00 Constitutional: Yes: No Distress, Calm Neck: Yes: Supple Cardiovascular: Yes: Regular Rate and Rhythm Respiratory: Yes: Regular, Diminished Gastrointestinal: Yes: Soft, Distention, Hypoactive Bowel Sounds Edema: Yes Edema: LLE: 1+, RLE: 1+ Labs: CBC, BMP 08/24/17 08:30 08/24/17 08:30 INR, PTT INR 1.32 (0.82-1.09) H 08/12/17 07:45 Problem List - Problems (1) Anemia Code(s): D64.9 - ANEMIA, UNSPECIFIED Qualifiers: Anemia type: unspecified type Qualified Code(s): D64.9 - Anemia, unspecified (2) CVD (cerebrovascular disease) Code(s): I67.9 - CEREBROVASCULAR DISEASE, UNSPECIFIED (3) Hx of CABG Code(s): Z95.1 - PRESENCE OF AORTOCORONARY BYPASS GRAFT (4) Hypercholesterolemia Code(s): E78.00 - PURE HYPERCHOLESTEROLEMIA, UNSPECIFIED (5) Presence of permanent cardiac pacemaker Code(s): Z95.0 - PRESENCE OF CARDIAC PACEMAKER (6) Sick sinus syndrome Code(s): I49.5 - SICK SINUS SYNDROME (7) CHF Congestive heart failure Code(s): I50.9 - HEART FAILURE, UNSPECIFIED (8) Abdominal aortic aneurysm (AAA) Code(s): I71.4 - ABDOMINAL AORTIC ANEURYSM, WITHOUT RUPTURE Qualifiers: Presence of rupture: without rupture Qualified Code(s): I71.4 - Abdominal aortic aneurysm, without rupture (9) Ischemic colitis Code(s): K55.9 - VASCULAR DISORDER OF INTESTINE, UNSPECIFIED (10) Rectal bleeding Code(s): K62.5 - HEMORRHAGE OF ANUS AND RECTUM (11) [id number] kidney injury Code(s): N17.9 - ACUTE KIDNEY FAILURE, UNSPECIFIED; N18.9 - CHRONIC KIDNEY DISEASE, UNSPECIFIED Qualifiers: Acute renal failure type: unspecified Chronic kidney disease stage: stage 4 (severe) Qualified Code(s): N17.9 - Acute kidney failure, unspecified; N18.4 - Chronic kidney disease, stage 4 (severe); N18.4 - Chronic kidney disease , stage 4 (severe); N18.4 - Chronic kidney disease, stage 4 (severe); N18.4 - Chronic kidney disease, stage 4 (severe) Assessment/Plan 1. Rectal bleed, underlying diverticulitis now with paralytic ileus improving 2. CAD s/p CABG, angina pectoris 3. Persistent AF with underlying PPM for sick sinus syndrome 4. Acute on CKD 5. CVA/TIA 6. COPD 7. TAA and AAA PLAN: 1. Surgery follow-up appreciated, advancing diet to clears, complete empiric abx course, encourage ambulation 2. Monitor renal function, gentle hydration, replete K as you are 3. Resume Carvedilol 12.5 bid as tolerated now able to take PO 4. Resume Atorvastatin 20 qhs now that able to take PO 5. Monitor CBC and transfuse PRBC as needed 6. TAA and AAA likely also needs surveillance, wrap legs Further plans are to follow. Importance of above issues emphasized to patient. Currently he is off Eliquis, but will need to resume once cleared after resolution of rectal bleed, diverticulitis and partial SBO
[2017-08-24] MEDS ORDERED: POTASSIUM CHLORIDE 10 MEQ in SODIUM CHLORIDE 100 ML IVPB ONE (11:15)
[2017-08-24] MEDS: CARVEDILOL 12.5 MG TABLET (FP) PO SCH ×2 (11:47→20:59)
[2017-08-24] MEDS: CALCIUM CARBONATE SUSPENSION - 500 MG/5 ML ML PO SCH (11:47)
[2017-08-24] MEDS: BUDESONIDE/FORMETEROL FUMARATE 160/4.5 mcg INHALER IH SCH (11:49)
[2017-08-24] MEDS: TIOTROPIUM BROMIDE 18 MCG/INH (DEVICE W/ 5 CAPSULES) IH SCH (11:49)
[2017-08-24] MEDS: FLUTICASONE PROP 0.05% 16 GM NASAL SPRAY NS SCH ×2 (11:49→20:59)
[2017-08-24] MEDS: LYTES/YERBA SANTA 240 ML BOTTLE MM SCH (11:50)
[2017-08-24] MEDS: PANTOPRAZOLE SODIUM 40 MG VIAL IVPUSH SCH (11:59)
--- NOTE | 2017-08-24 12:57 | PN ---
Progress Note (short form) - Note Progress Note: Abdominal symptoms improving. Tolerating clears. No CP or SOB. Intake & Output 08/21/17 08/22/17 08/23/17 08/24/17 23:59 23:59 23:59 23:59 Intake Total 1475 2550 1108 504 Output Total 550 750 950 200 Balance 925 1800 158 304 Weight 179 lb 11.2 oz 180 lb 14.4 oz 181 lb Last Vital Signs Temp Pulse Resp BP Pulse Ox 98.4 F 60 20 120/64 98 08/24/17 05:32 08/24/17 05:32 08/24/17 05:32 08/24/17 05:32 08/24/17 00:00 Active Medications Acetaminophen (Ofirmev Injection -) 1,000 mg IVPB Q6H PRN PRN Reason: FEVER OR PAIN Last Admin: 08/20/17 15:38 Dose: 1,000 mg Atorvastatin Calcium (Lipitor -) 20 mg PO HS [facility] Last Admin: 08/23/17 21:08 Dose: Not Given Budesonide/Formoterol Fumarate (Symbicort 160/4.5mcg -) 1 puff IH DAILY [facility] Last Admin: 08/24/17 11:49 Dose: 1 puff Calcium Carbonate (Calcium Carb Oral Suspension -) 500 mg PO DAILY [facility] Last Admin: 08/24/17 11:47 Dose: 500 mg Carvedilol (Coreg -) 12.5 mg PO BID [facility] Last Admin: 08/24/17 11:47 Dose: 12.5 mg Fluticasone Propionate (Flonase -) 1 spray NS BID [facility] Last Admin: 08/24/17 11:49 Dose: 1 spray Hydromorphone HCl (Dilaudid Injection -) 1 mg IVPB Q4H PRN PRN Reason: PAIN Last Admin: 08/22/17 16:20 Dose: 1 mg Dextrose/Sodium Chloride (D5-1/2ns -) 1,000 mls @ 100 mls/hr IV ASDIR [facility] Last Admin: 08/22/17 18:04 Dose: 100 mls/hr Amino Acids (Clinimix -) 1,000 mls @ 42 mls/hr IV DAILY [facility] Last Admin: 08/24/17 11:56 Dose: Not Given Piperacillin Sod/Tazobactam (Sod 2.25 gm/ Dextrose) 100 mls @ 200 mls/hr IVPB Q8H-IV [facility] Last Admin: 08/24/17 11:48 Dose: 200 mls/hr Montelukast Sodium (Singulair -) 10 mg PO HS [facility] Last Admin: 08/23/17 21:08 Dose: Not Given Xopenex Hfa Inhaler (Non-Formulary Med) 1 each IH Q6H PRN PRN Reason: SHORT OF BREATH/WHEEZING Last Admin: 08/11/17 23:06 Dose: 1 each Ondansetron HCl (Zofran Injection) 4 mg IVPUSH Q4H PRN PRN Reason: NAUSEA AND/OR VOMITING Last Admin: 08/18/17 11:20 Dose: 4 mg Pancrelipase (Creon Dr 36,000 Units Capsule) 1 cap PO TIDCM [facility] Last Admin: 08/24/17 11:48 Dose: 1 cap Pantoprazole Sodium (Protonix Iv) 40 mg IVPUSH DAILY [facility] Last Admin: 08/24/17 11:59 Dose: 40 mg Saliva Substitute (Mouthkote Solution -) 1 applic MM DAILY [facility] Last Admin: 08/24/17 11:50 Dose: 1 applic Tamsulosin HCl (Flomax -) 0.4 mg PO HS [facility] Last Admin: 08/23/17 21:07 Dose: Not Given Tiotropium [place] (Spiriva -) 1 puff IH DAILY [facility] Last Admin: 08/24/17 11:49 Dose: 1 puff Trazodone HCl (Desyrel -) 100 mg PO HS [facility] Last Admin: 08/23/17 21:07 Dose: Not Given Zolpidem Tartrate (Ambien -) 5 mg PO HS PRN PRN Reason: INSOMNIA Constitutional: Yes: No Distress Neck: Yes: Supple Cardiovascular: Yes: Regular Rate and Rhythm Respiratory: Yes: Diminished at the bases Gastrointestinal: Yes: Soft, Distention, Hypoactive Bowel Sounds Edema: Yes Edema: LLE: 1+, RLE: 1+ Labs: Laboratory Results - last 24 hr 08/24/17 08/24/17 08/24/17 08:30 08:30 08:45 WBC 10.5 H RBC 3.06 L Hgb 8.9 L Hct 27.4 L MCV 89.6 MCH 29.2 MCHC 32.6 RDW 15.3 Plt Count 169 MPV 7.9 Neutrophils % 83.7 H Lymphocytes % 4.2 L D Monocytes % 11.0 H Eosinophils % 0.8 Basophils % 0.3 Sodium 142 Potassium 3.2 L Chloride 109 H Carbon Dioxide 17 L Anion Gap 16 BUN 108 H* Creatinine 8.5 H* D Random Glucose 103 Calcium 8.1 L Phosphorus 6.9 H Cancelled Magnesium 2.1 Cancelled Problem List - Problems (1) Anemia Code(s): D64.9 - ANEMIA, UNSPECIFIED Qualifiers: Anemia type: unspecified type Qualified Code(s): D64.9 - Anemia, unspecified (2) CVD (cerebrovascular disease) Code(s): I67.9 - CEREBROVASCULAR DISEASE, UNSPECIFIED (3) Hx of CABG Code(s): Z95.1 - PRESENCE OF AORTOCORONARY BYPASS GRAFT (4) Hypercholesterolemia Code(s): E78.00 - PURE HYPERCHOLESTEROLEMIA, UNSPECIFIED (5) Presence of permanent cardiac pacemaker Code(s): Z95.0 - PRESENCE OF CARDIAC PACEMAKER (6) Sick sinus syndrome Code(s): I49.5 - SICK SINUS SYNDROME (7) CHF Congestive heart failure Code(s): I50.9 - HEART FAILURE, UNSPECIFIED (8) Abdominal aortic aneurysm (AAA) Code(s): I71.4 - ABDOMINAL AORTIC ANEURYSM, WITHOUT RUPTURE Qualifiers: Presence of rupture: without rupture Qualified Code(s): I71.4 - Abdominal aortic aneurysm, without rupture (9) Ischemic colitis Code(s): K55.9 - VASCULAR DISORDER OF INTESTINE, UNSPECIFIED (10) Rectal bleeding Code(s): K62.5 - HEMORRHAGE OF ANUS AND RECTUM (11) Rohpn-gi-[id number] kidney injury Code(s): N17.9 - ACUTE KIDNEY FAILURE, UNSPECIFIED; N18.9 - CHRONIC KIDNEY DISEASE, UNSPECIFIED Qualifiers: Acute renal failure type: unspecified Chronic kidney disease stage: stage 4 (severe) Qualified Code(s): N17.9 - Acute kidney failure, unspecified; N18.4 - Chronic kidney disease, stage 4 (severe); N18.4 - Chronic kidney disease , stage 4 (severe); N18.4 - Chronic kidney disease, stage 4 (severe); N18.4 - Chronic kidney disease, stage 4 (severe) PLAN: PO as tolerated O2 as needed Pain control Incentive Spirometry VTE prophylaxis Normal transfusion thresholds TAA/AAA surveillance Dr Cordero
--- NOTE | 2017-08-24 13:31 | PN ---
Progress Note, Physician History of Present Illness: starting to improve abd symptom improving ng tube removed patient had a small bm flatus present - Current Medication List Current Medications: Active Medications Acetaminophen (Ofirmev Injection -) 1,000 mg IVPB Q6H PRN PRN Reason: FEVER OR PAIN Last Admin: 08/20/17 15:38 Dose: 1,000 mg Atorvastatin Calcium (Lipitor -) 20 mg PO HS [facility] Last Admin: 08/23/17 21:08 Dose: Not Given Budesonide/Formoterol Fumarate (Symbicort 160/4.5mcg -) 1 puff IH DAILY [facility] Last Admin: 08/24/17 11:49 Dose: 1 puff Calcium Carbonate (Calcium Carb Oral Suspension -) 500 mg PO DAILY [facility] Last Admin: 08/24/17 11:47 Dose: 500 mg Carvedilol (Coreg -) 12.5 mg PO BID [facility] Last Admin: 08/24/17 11:47 Dose: 12.5 mg Fluticasone Propionate (Flonase -) 1 spray NS BID [facility] Last Admin: 08/24/17 11:49 Dose: 1 spray Hydromorphone HCl (Dilaudid Injection -) 1 mg IVPB Q4H PRN PRN Reason: PAIN Last Admin: 08/22/17 16:20 Dose: 1 mg Dextrose/Sodium Chloride (D5-1/2ns -) 1,000 mls @ 100 mls/hr IV ASDIR [facility] Last Admin: 08/22/17 18:04 Dose: 100 mls/hr Amino Acids (Clinimix -) 1,000 mls @ 42 mls/hr IV DAILY [facility] Last Admin: 08/24/17 11:56 Dose: Not Given Piperacillin Sod/Tazobactam (Sod 2.25 gm/ Dextrose) 100 mls @ 200 mls/hr IVPB Q8H-IV [facility] Last Admin: 08/24/17 11:48 Dose: 200 mls/hr Montelukast Sodium (Singulair -) 10 mg PO HS [facility] Last Admin: 08/23/17 21:08 Dose: Not Given Xopenex Hfa Inhaler (Non-Formulary Med) 1 each IH Q6H PRN PRN Reason: SHORT OF BREATH/WHEEZING Last Admin: 08/11/17 23:06 Dose: 1 each Ondansetron HCl (Zofran Injection) 4 mg IVPUSH Q4H PRN PRN Reason: NAUSEA AND/OR VOMITING Last Admin: 08/18/17 11:20 Dose: 4 mg Pancrelipase (Creon Dr 36,000 Units Capsule) 1 cap PO TIDCM [facility] Last Admin: 08/24/17 11:48 Dose: 1 cap Pantoprazole Sodium (Protonix Iv) 40 mg IVPUSH DAILY [facility] Last Admin: 08/24/17 11:59 Dose: 40 mg Saliva Substitute (Mouthkote Solution -) 1 applic MM DAILY [facility] Last Admin: 08/24/17 11:50 Dose: 1 applic Tamsulosin HCl (Flomax -) 0.4 mg PO HS [facility] Last Admin: 08/23/17 21:07 Dose: Not Given Tiotropium [place] (Spiriva -) 1 puff IH DAILY [facility] Last Admin: 08/24/17 11:49 Dose: 1 puff Trazodone HCl (Desyrel -) 100 mg PO HS [facility] Last Admin: 08/23/17 21:07 Dose: Not Given Zolpidem Tartrate (Ambien -) 5 mg PO HS PRN PRN Reason: INSOMNIA - Objective Vital Signs: Vital Signs Temperature 98.4 F 08/24/17 05:32 Pulse Rate 60 08/24/17 05:32 Respiratory Rate 20 08/24/17 05:32 Blood Pressure 120/64 08/24/17 05:32 O2 Sat by Pulse Oximetry (%) 98 08/24/17 00:00 Constitutional: Yes: No Distress, Calm Cardiovascular: Yes: Regular Rate and Rhythm Respiratory: Yes: Regular, CTA Bilaterally Gastrointestinal: Yes: Soft, Hypoactive Bowel Sounds, Other Musculoskeletal: Yes: WNL Extremities: Yes: WNL Labs: CBC, BMP 08/24/17 08:30 08/24/17 08:30 INR, PTT INR 1.32 (0.82-1.09) H 08/12/17 07:45 Assessment/Plan Problem List - Problems (1) Rectal bleeding Assessment/Plan: resolved Code(s): K62.5 - HEMORRHAGE OF ANUS AND RECTUM (2) CHF (congestive heart failure) Assessment/Plan: stable no sob Code(s): I50.9 - HEART FAILURE, UNSPECIFIED Qualifiers: Congestive heart failure type: combined Congestive heart failure chronicity : acute on chronic Qualified Code(s): I50.43 - Acute on chronic combined systolic (congestive) and diastolic (congestive) heart failure (3) Acute diverticulitis Assessment/Plan: on iv abx id on board Code(s): K57.92 - DVTRCLI OF INTEST, PART UNSP, W/O PERF OR ABSCESS W/O BLEED (4) Anemia Assessment/Plan: monitor s/p prbc transfusion Code(s): D64.9 - ANEMIA, UNSPECIFIED Qualifiers: Anemia type: unspecified type Qualified Code(s): D64.9 - Anemia, unspecified (5) CKD (chronic kidney disease) Assessment/Plan: monitor...cr LITTLE BETTER on ivf...NEED FOR HD renal on board Code(s): N18.9 - CHRONIC KIDNEY DISEASE, UNSPECIFIED Qualifiers: Chronic kidney disease stage: stage 4 (severe) Qualified Code(s): N18.4 - Chronic kidney disease, stage 4 (severe) (6) CHF Congestive heart failure Code(s): I50.9 - HEART FAILURE, UNSPECIFIED (7) SBO (small bowel obstruction) Assessment/Plan: npo, ivf.. iv pain meds ngt in place as xray was worse today Code(s): K56.609 - UNSP INTESTNL OBST, UNSP TO PARTIAL VERSUS COMPLETE OBST (8) Hypercholesterolemia Code(s): E78.00 - PURE HYPERCHOLESTEROLEMIA, UNSPECIFIED patient already has been on levaquin and flagyl plan once patient stable will stop abx monitor abd status rest as per primary
--- NOTE | 2017-08-24 14:09 | PN ---
Progress Note, Physician History of Present Illness: Pt seen and examined at bedside. He is awake and alert. He denies shortness of breath. He complains of lower extremity edema. NG tube was removed and he is getting clears. - Current Medication List Current Medications: Active Medications Acetaminophen (Ofirmev Injection -) 1,000 mg IVPB Q6H PRN PRN Reason: FEVER OR PAIN Last Admin: 08/20/17 15:38 Dose: 1,000 mg Atorvastatin Calcium (Lipitor -) 20 mg PO HS [facility] Last Admin: 08/23/17 21:08 Dose: Not Given Budesonide/Formoterol Fumarate (Symbicort 160/4.5mcg -) 1 puff IH DAILY [facility] Last Admin: 08/24/17 11:49 Dose: 1 puff Calcium Carbonate (Calcium Carb Oral Suspension -) 500 mg PO DAILY [facility] Last Admin: 08/24/17 11:47 Dose: 500 mg Carvedilol (Coreg -) 12.5 mg PO BID [facility] Last Admin: 08/24/17 11:47 Dose: 12.5 mg Fluticasone Propionate (Flonase -) 1 spray NS BID [facility] Last Admin: 08/24/17 11:49 Dose: 1 spray Hydromorphone HCl (Dilaudid Injection -) 1 mg IVPB Q4H PRN PRN Reason: PAIN Last Admin: 08/22/17 16:20 Dose: 1 mg Dextrose/Sodium Chloride (D5-1/2ns -) 1,000 mls @ 100 mls/hr IV ASDIR [facility] Last Admin: 08/22/17 18:04 Dose: 100 mls/hr Amino Acids (Clinimix -) 1,000 mls @ 42 mls/hr IV DAILY [facility] Last Admin: 08/24/17 11:56 Dose: Not Given Piperacillin Sod/Tazobactam (Sod 2.25 gm/ Dextrose) 100 mls @ 200 mls/hr IVPB Q8H-IV [facility] Last Admin: 08/24/17 11:48 Dose: 200 mls/hr Montelukast Sodium (Singulair -) 10 mg PO HS [facility] Last Admin: 08/23/17 21:08 Dose: Not Given Xopenex Hfa Inhaler (Non-Formulary Med) 1 each IH Q6H PRN PRN Reason: SHORT OF BREATH/WHEEZING Last Admin: 08/11/17 23:06 Dose: 1 each Ondansetron HCl (Zofran Injection) 4 mg IVPUSH Q4H PRN PRN Reason: NAUSEA AND/OR VOMITING Last Admin: 08/18/17 11:20 Dose: 4 mg Pancrelipase (Creon Dr 36,000 Units Capsule) 1 cap PO TIDCM [facility] Last Admin: 08/24/17 11:48 Dose: 1 cap Pantoprazole Sodium (Protonix Iv) 40 mg IVPUSH DAILY [facility] Last Admin: 08/24/17 11:59 Dose: 40 mg Saliva Substitute (Mouthkote Solution -) 1 applic MM DAILY [facility] Last Admin: 08/24/17 11:50 Dose: 1 applic Tamsulosin HCl (Flomax -) 0.4 mg PO HS [facility] Last Admin: 08/23/17 21:07 Dose: Not Given Tiotropium [place] (Spiriva -) 1 puff IH DAILY [facility] Last Admin: 08/24/17 11:49 Dose: 1 puff Trazodone HCl (Desyrel -) 100 mg PO HS [facility] Last Admin: 08/23/17 21:07 Dose: Not Given Zolpidem Tartrate (Ambien -) 5 mg PO HS PRN PRN Reason: INSOMNIA - Objective Vital Signs: Vital Signs Temperature 98.4 F 08/24/17 05:32 Pulse Rate 60 08/24/17 05:32 Respiratory Rate 20 08/24/17 05:32 Blood Pressure 120/64 08/24/17 05:32 O2 Sat by Pulse Oximetry (%) 98 08/24/17 00:00 Constitutional: Yes: Calm Eyes: Yes: Conjunctiva Clear HENT: Yes: Atraumatic Neck: Yes: Supple Cardiovascular: Yes: S1, S2 Respiratory: Yes: CTA Bilaterally Gastrointestinal: Yes: Soft, Abdomen, Obese Genitourinary: Yes: WNL Edema: Yes Edema: LLE: 2+, RLE: 2+ Neurological: Yes: Oriented Psychiatric: Yes: Oriented Labs: CBC, BMP 08/24/17 08:30 08/24/17 08:30 INR, PTT INR 1.32 (0.82-1.09) H 08/12/17 07:45 Problem List - Problems (1) CKD (chronic kidney disease) Code(s): N18.9 - CHRONIC KIDNEY DISEASE, UNSPECIFIED Qualifiers: Chronic kidney disease stage: stage 4 (severe) Qualified Code(s): N18.4 - Chronic kidney disease, stage 4 (severe) (2) Anemia Code(s): D64.9 - ANEMIA, UNSPECIFIED Qualifiers: Anemia type: unspecified type Qualified Code(s): D64.9 - Anemia, unspecified (3) Abdominal pain Code(s): R10.9 - UNSPECIFIED ABDOMINAL PAIN Qualifiers: Abdominal location: unspecified location Qualified Code(s): R10.9 - Unspecified abdominal pain (4) Rectal bleeding Code(s): K62.5 - HEMORRHAGE OF ANUS AND RECTUM (5) Acute exacerbation of COPD with asthma Code(s): J44.1 - CHRONIC OBSTRUCTIVE PULMONARY DISEASE W (ACUTE) EXACERBATION; J45.901 - UNSPECIFIED ASTHMA WITH (ACUTE) EXACERBATION (6) CHF (congestive heart failure) Code(s): I50.9 - HEART FAILURE, UNSPECIFIED Qualifiers: Congestive heart failure type: combined Congestive heart failure chronicity : acute on chronic Qualified Code(s): I50.43 - Acute on chronic combined systolic (congestive) and diastolic (congestive) heart failure Assessment/Plan Current Medications Generic Name Dose Route Start Last Admin Trade Name Freq PRN Reason Stop Dose Admin Acetaminophen 1,000 mg 08/19/17 18:30 08/20/17 15:38 Ofirmev Injection - IVPB 1,000 mg Q6H PRN Administration FEVER OR PAIN Atorvastatin Calcium 20 mg 08/10/17 20:15 08/23/17 21:08 Lipitor - PO Not Given HS EDY Budesonide/Formoterol Fumarate 1 puff 08/11/17 10:00 08/24/17 11:49 Symbicort 160/4.5mcg - IH 1 puff DAILY EDY Administration Calcium Carbonate 500 mg 08/11/17 16:30 08/24/17 11:47 Calcium Carb Oral Suspension - PO 500 mg DAILY EDY Administration Carvedilol 12.5 mg 08/12/17 22:00 08/24/17 11:47 Coreg - PO 12.5 mg BID EDY Administration Fluticasone Propionate 1 spray 08/10/17 22:00 08/24/17 11:49 Flonase - NS 1 spray BID EDY Administration Hydromorphone HCl 1 mg 08/22/17 14:17 08/22/17 16:20 Dilaudid Injection - IVPB 1 mg Q4H PRN Administration PAIN Dextrose/Sodium Chloride 1,000 mls @ 100 mls/hr 08/21/17 14:30 08/22/17 18:04 D5-1/2ns - IV 100 mls/hr ASDIR EDY Administration Amino Acids 1,000 mls @ 42 mls/hr 08/22/17 19:00 08/24/17 11:56 Clinimix - IV Not Given DAILY EDY Piperacillin Sod/Tazobactam 100 mls @ 200 mls/hr 08/23/17 18:00 08/24/17 11: 48 Sod 2.25 gm/ Dextrose IVPB 200 mls/hr Q8H-IV EDY Administration Montelukast Sodium 10 mg 08/10/17 20:15 08/23/17 21:08 Singulair - PO Not Given HS EDY Xopenex Hfa Inhaler 1 each 08/10/17 23:14 08/11/17 23:06 Non-Formulary Med IH 1 each Q6H PRN Administration SHORT OF BREATH/WHEEZING Ondansetron HCl 4 mg 08/17/17 09:36 08/18/17 11:20 Zofran Injection IVPUSH 4 mg Q4H PRN Administration NAUSEA AND/OR VOMITING Pancrelipase 1 cap 08/14/17 08:00 08/24/17 11:[address] 36,000 Units Capsule PO 1 cap TIDCM [facility] Administration Pantoprazole Sodium 40 mg 08/19/17 20:15 08/24/17 11:59 Protonix Iv IVPUSH 40 mg DAILY [facility]Y Administration Saliva Substitute 1 applic 08/21/17 15:30 08/24/17 11:50 Mouthkote Solution - MM 1 applic DAILY [facility]Y Administration Tamsulosin HCl 0.4 mg 08/10/17 20:15 08/23/17 21:07 Flomax - PO Not Given HS EDY Tiotropium [place] 1 puff 08/11/17 10:00 08/24/17 11:49 Spiriva - IH 1 puff DAILY EDY Administration Trazodone HCl 100 mg 08/10/17 22:00 08/23/17 21:07 Desyrel - PO Not Given HS EDY Zolpidem Tartrate 5 mg 08/22/17 15:35 Ambien - PO HS PRN INSOMNIA Impression 1. CKD 2. ALAN 3. anemia 4. GI bleed 5. BPH 6. a-fib 7. aortic aneurysm 8. COPD 9. insomnia 10. SBO Plan - ng tube removed - pt on clears - fluids stopped - pt requesting a small dose of lasix, will give a dose today - discussed starting HD with pt and his daughter - monitor for signs of SBO - keep arb on hold - will follow closely Dr Ortega
[2017-08-24] MEDS ORDERED: FUROSEMIDE 40 MG/4 ML INJECTABLE VIAL IVPUSH ONE (14:10)
--- NOTE | 2017-08-24 19:14 | PN ---
Mental Health Exam - Mental Status Exam Alert and Oriented to: Time, Place, Person Cognitive Function: Grossly Intact Patient Appearance: Well Groomed Mood: Expansive, Hopeful Affect: Appropriate, Mood Congruent Patient Behavior: Cooperative Speech Pattern: Clear Voice Loudness: Moderately Soft/Quiet Thought Process: Intact Thought Disorder: Not Present Hallucinations: None Suicidal Ideation: None, No Plan Homicidal Ideation: None, No Plan Insight/Judgement: Good Sleep: Fair Appetite: Fair Muscle strength/Tone: Mild Hypertonicity (mild tremor) Gait/Station: Deferred
--- NOTE | 2017-08-24 19:22 | PN ---
Progress Note (short form) - Note Progress Note: Client is 71 yo pleasant gentle man from our [facility], with a past history of alchol abuse. 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 Planned to have HD, will be discussed with daughter, his health care proxy. He has high cholesterol, small bowel obstruction, CHF. He removed his NG tube today. In [place] for 3 weeks now, apparently improving but requested mental health consult as he wrestles with his choices, ongoing medical care. labs reviewed, previous notes are reviewed, MSE complete see seperate sheet. Client presents with pensive mood, visitor present prior to interview. He claims , "i may send up to 50 text a day", especially related my activity in AA groups. I am very active, prior to this". Denies Si HI AH or VH. Alert and orientated by 4. He is well kempt, which he is very proud of his appearance. He is hopeful. He is also a spiritual person, with a "positive outlook". Problem List - Problems (1) Adjustment reaction to medical therapy Code(s): F43.20 - ADJUSTMENT DISORDER, UNSPECIFIED
[2017-08-24] MEDS ORDERED: traZODone HCL 50 MG TABLET (FP) ONE (20:52)
[2017-08-24] MEDS: MONTELUKAST NA 10 MG TABLET PO SCH (20:59)
[2017-08-24] MEDS: ATORVASTATIN CA 20 MG TABLET (FP) PO SCH (20:59)
[2017-08-24] MEDS: TAMSULOSIN HCL 0.4 MG CAP.ER.24H (FP) PO SCH (20:59)
[2017-08-24] MEDS: traZODone HCL 100 MG TABLET (FP) PO SCH (20:59)
[2017-08-25] MEDS ORDERED: PT OWN MED DRAWER 7, Y5N ONE ×6 (01:15→21:12)
[2017-08-25] MEDS: PIPERACILLIN/TAZOB 2.25 GM 2.25 GM in DEXTROSE 5%-WATER - 100 ML IVPB SCH ×2 (01:32→10:39)
[2017-08-25 07:24] LABS: BASO % 0.6 % (0-2.0); EOS % 1.4 % (0-4.5); HEMATOCRIT 30.6 % (35.4-49); HEMOGLOBIN 9.9 GM/dL (11.7-16.9); LYMPH % 5.1 % (8-40); MCH 29.4 pg (25.7-33.7); MCHC 32.3 g/dl (32.0-35.9); MEAN CELL VOLUME 90.9 fl (80-96); MEAN PLT VOLUME 8.3 fl (7.5-11.1); MONO % 8.7 % (3.8-10.2); NEUT % 84.2 % (42.8-82.8); PLATELET COUNT 146 K/MM3 (134-434); RBC 3.36 M/mm3 (4.00-5.60); RDW 15.3 % (11.9-15.9); WHITE BLOOD COUNT 9.3 K/mm3 (4.0-10.0)
[2017-08-25 07:53] LABS: ALBUMIN 2.1 g/dl (3.4-5.0); ANION GAP 15 (8-16); CALCIUM 7.5 mg/dL (8.5-10.1); CHLORIDE 110 mmol/L (98-107); CO2 16 mmol/L (21-32); GLUCOSE,RANDOM 88 mg/dL (74-106); MAGNESIUM 2.1 mg/dL (1.8-2.4); POTASSIUM 3.3 mmol/L (3.5-5.1); SGOT/AST 16 U/L (15-37); SGPT/ALT 10 U/L (12-78); SODIUM 141 mmol/L (136-145)
[2017-08-25 08:04] LABS: ALK PHOS 61 U/L (45-117); BILIRUBIN,TOTAL 0.4 mg/dL (0.2-1.0); PREALBUMIN 16.2 mg/dl (20-40); TOT PROT 4.8 g/dl (6.4-8.2)
[2017-08-25] MEDS: LIPASE/PROTEASE/AMYLASE 36,000 UNIT CAPSULE PO SCH ×2 (08:23→11:46)
[2017-08-25 08:24] LABS: BLOOD UREA NITROGEN 104 mg/dL (7-18)
[2017-08-25 08:25] LABS: CREATININE 8.3 mg/dL (0.7-1.3)
--- NOTE | 2017-08-25 09:16 | PN ---
Progress Note, Physician Chief Complaint: feels better History of Present Illness: Admitted with partial intestinal obstruction Tolerating liquids - Current Medication List Current Medications: Active Medications Acetaminophen (Ofirmev Injection -) 1,000 mg IVPB Q6H PRN PRN Reason: FEVER OR PAIN Last Admin: 08/20/17 15:38 Dose: 1,000 mg Atorvastatin Calcium (Lipitor -) 20 mg PO HS [facility] Last Admin: 08/24/17 20:59 Dose: 20 mg Budesonide/Formoterol Fumarate (Symbicort 160/4.5mcg -) 1 puff IH DAILY [facility] Last Admin: 08/24/17 11:49 Dose: 1 puff Calcium Carbonate (Calcium Carb Oral Suspension -) 500 mg PO DAILY [facility] Last Admin: 08/24/17 11:47 Dose: 500 mg Carvedilol (Coreg -) 12.5 mg PO BID [facility] Last Admin: 08/24/17 20:59 Dose: 12.5 mg Fluticasone Propionate (Flonase -) 1 spray NS BID [facility] Last Admin: 08/24/17 20:59 Dose: 1 spray Hydromorphone HCl (Dilaudid Injection -) 1 mg IVPB Q4H PRN PRN Reason: PAIN Last Admin: 08/22/17 16:20 Dose: 1 mg Piperacillin Sod/Tazobactam (Sod 2.25 gm/ Dextrose) 100 mls @ 200 mls/hr IVPB Q8H-IV [facility] Last Admin: 08/25/17 01:32 Dose: 200 mls/hr Montelukast Sodium (Singulair -) 10 mg PO HS [facility] Last Admin: 08/24/17 20:59 Dose: 10 mg Xopenex Hfa Inhaler (Non-Formulary Med) 1 each IH Q6H PRN PRN Reason: SHORT OF BREATH/WHEEZING Last Admin: 08/11/17 23:06 Dose: 1 each Ondansetron HCl (Zofran Injection) 4 mg IVPUSH Q4H PRN PRN Reason: NAUSEA AND/OR VOMITING Last Admin: 08/18/17 11:20 Dose: 4 mg Pancrelipase (Creon Dr 36,000 Units Capsule) 1 cap PO TIDCM [facility] Last Admin: 08/25/17 08:23 Dose: 1 cap Pantoprazole Sodium (Protonix Iv) 40 mg IVPUSH DAILY [facility] Last Admin: 08/24/17 11:59 Dose: 40 mg Saliva Substitute (Mouthkote Solution -) 1 applic MM DAILY [facility] Last Admin: 08/24/17 11:50 Dose: 1 applic Tamsulosin HCl (Flomax -) 0.4 mg PO HS [facility] Last Admin: 08/24/17 20:59 Dose: 0.4 mg Tiotropium [place] (Spiriva -) 1 puff IH DAILY [facility] Last Admin: 08/24/17 11:49 Dose: 1 puff Trazodone HCl (Desyrel -) 100 mg PO HS [facility] Last Admin: 08/24/17 20:59 Dose: 100 mg Zolpidem Tartrate (Ambien -) 5 mg PO HS PRN PRN Reason: INSOMNIA Last Admin: 08/24/17 20:55 Dose: 5 mg - Objective Vital Signs: Vital Signs Temperature 98.0 F 08/25/17 05:46 Pulse Rate 66 08/25/17 05:46 Respiratory Rate 20 08/25/17 05:46 Blood Pressure 108/81 08/25/17 05:46 O2 Sat by Pulse Oximetry (%) 98 08/24/17 09:00 Constitutional: Yes: Calm, Pallor HENT: Yes: WNL Neck: Yes: WNL Cardiovascular: Yes: WNL Respiratory: Yes: Regular Gastrointestinal: Yes: Hypoactive Bowel Sounds ...Rectal Exam: Yes: WNL Genitourinary: Yes: Oliguria Edema: Yes Edema: LLE: 2+, RLE: 2+ Neurological: Yes: Alert Labs: CBC, BMP 08/25/17 06:25 08/25/17 06:25 INR, PTT INR 1.32 (0.82-1.09) H 08/12/17 07:45 Assessment/Plan Advance diet
--- NOTE | 2017-08-25 09:50 | PN ---
Progress Note, Physician Chief Complaint: small bowel obstruction History of Present Illness: 71 yo male with a MMP with history of intermittent constipation. Patient states he had a colonoscopy 5 years previous which was normal. CTscan on 08/17 shows distended stomach and small bowel, contrast was very proximal. Only previous abdominal surgery was an open appendectomy. abdominal pain is improved today, he reports two large bowel movements. Tolerated clear liquids - Current Medication List Current Medications: Active Medications Acetaminophen (Ofirmev Injection -) 1,000 mg IVPB Q6H PRN PRN Reason: FEVER OR PAIN Last Admin: 08/20/17 15:38 Dose: 1,000 mg Atorvastatin Calcium (Lipitor -) 20 mg PO HS [facility] Last Admin: 08/24/17 20:59 Dose: 20 mg Budesonide/Formoterol Fumarate (Symbicort 160/4.5mcg -) 1 puff IH DAILY [facility] Last Admin: 08/24/17 11:49 Dose: 1 puff Calcium Carbonate (Calcium Carb Oral Suspension -) 500 mg PO DAILY [facility] Last Admin: 08/24/17 11:47 Dose: 500 mg Carvedilol (Coreg -) 12.5 mg PO BID [facility] Last Admin: 08/24/17 20:59 Dose: 12.5 mg Fluticasone Propionate (Flonase -) 1 spray NS BID [facility] Last Admin: 08/24/17 20:59 Dose: 1 spray Hydromorphone HCl (Dilaudid Injection -) 1 mg IVPB Q4H PRN PRN Reason: PAIN Last Admin: 08/22/17 16:20 Dose: 1 mg Piperacillin Sod/Tazobactam (Sod 2.25 gm/ Dextrose) 100 mls @ 200 mls/hr IVPB Q8H-IV [facility] Last Admin: 08/25/17 01:32 Dose: 200 mls/hr Montelukast Sodium (Singulair -) 10 mg PO HS [facility] Last Admin: 08/24/17 20:59 Dose: 10 mg Xopenex Hfa Inhaler (Non-Formulary Med) 1 each IH Q6H PRN PRN Reason: SHORT OF BREATH/WHEEZING Last Admin: 08/11/17 23:06 Dose: 1 each Ondansetron HCl (Zofran Injection) 4 mg IVPUSH Q4H PRN PRN Reason: NAUSEA AND/OR VOMITING Last Admin: 08/18/17 11:20 Dose: 4 mg Pancrelipase (Creon Dr 36,000 Units Capsule) 1 cap PO TIDCM [facility] Last Admin: 08/25/17 08:23 Dose: 1 cap Pantoprazole Sodium (Protonix Iv) 40 mg IVPUSH DAILY [facility] Last Admin: 08/24/17 11:59 Dose: 40 mg Saliva Substitute (Mouthkote Solution -) 1 applic MM DAILY [facility] Last Admin: 08/24/17 11:50 Dose: 1 applic Tamsulosin HCl (Flomax -) 0.4 mg PO HS [facility] Last Admin: 08/24/17 20:59 Dose: 0.4 mg Tiotropium [place] (Spiriva -) 1 puff IH DAILY [facility] Last Admin: 08/24/17 11:49 Dose: 1 puff Trazodone HCl (Desyrel -) 100 mg PO HS [facility] Last Admin: 08/24/17 20:59 Dose: 100 mg Zolpidem Tartrate (Ambien -) 5 mg PO HS PRN PRN Reason: INSOMNIA Last Admin: 08/24/17 20:55 Dose: 5 mg - Objective Vital Signs: Vital Signs Temperature 98.1 F 08/25/17 09:40 Pulse Rate 63 08/25/17 09:40 Respiratory Rate 19 08/25/17 09:40 Blood Pressure 121/67 08/25/17 09:40 O2 Sat by Pulse Oximetry (%) 98 08/24/17 09:00 Vital Signs Period Temp Pulse Resp BP Sys/Whitaker Pulse Ox Last 24 Hr 98.0 F-98.7 F 60-66 19-20 103-121/60-81 Constitutional: Yes: Well Nourished, No Distress, Calm, Obese Eyes: Yes: Conjunctiva Clear, EOM Intact HENT: Yes: Atraumatic, Normocephalic Neck: Yes: Supple, Trachea Midline Cardiovascular: Yes: Regular Rate and Rhythm, S1, S2 Respiratory: Yes: Regular, CTA Bilaterally Gastrointestinal: Yes: Soft, Hypoactive Bowel Sounds, Tenderness (minmal in RLQ) . No: Ascites, Tenderness, Epigastrium, Tenderness, Rebound ...Rectal Exam: Yes: Deferred Genitourinary: No: CVA Tenderness - Left, CVA Tenderness - Right Extremities: No: Cool, Cyanosis Edema: Yes Edema: LLE: 2+, RLE: 2+ Peripheral Pulses WNL: Yes Peripheral Pulses: Left Radial: 2+, Right Radial: 2+, Left Doralis Pedis: 2+, Right Dorsalis Pedis: 2+, Left Femoral: 2+, Right Femoral: 2+ Neurological: Yes: Alert, Oriented Psychiatric: Yes: Alert, Oriented Labs: CBC, BMP 08/25/17 06:25 08/25/17 06:25 Problem List - Problems (1) SBO (small bowel obstruction) Assessment/Plan: 71yo male MMP presents with a partial SBO, h/o appendectomy, recent normal colonoscopy, more likely paralytics ileus which appeared to be resolving last night but is worse today. (He has cups of water from the bathroom). NGT discontinued yesterday no vomiting, however abdominal distension is worse on exam. WBC is normal. resolving partial SBO versus ileus. Tolerating clears GI fuction is reported as more normal and regular. advance to full liquids f/u labs monitor electrolytes recommendations per Nephrology encourage ambulation resume oral cardiac medication will follow for serial exams Code(s): K56.609 - UNSP INTESTNL OBST, UNSP TO PARTIAL VERSUS COMPLETE OBST (2) Abdominal pain Code(s): R10.9 - UNSPECIFIED ABDOMINAL PAIN Qualifiers: Abdominal location: unspecified location Qualified Code(s): R10.9 - Unspecified abdominal pain (3) Ileus, unspecified Code(s): K56.7 - ILEUS, UNSPECIFIED (4) Acute diverticulitis Code(s): K57.92 - DVTRCLI OF INTEST, PART UNSP, W/O PERF OR ABSCESS W/O BLEED (5) Anemia Code(s): D64.9 - ANEMIA, UNSPECIFIED Qualifiers: Anemia type: unspecified type Qualified Code(s): D64.9 - Anemia, unspecified (6) Hypercholesterolemia Code(s): E78.00 - PURE HYPERCHOLESTEROLEMIA, UNSPECIFIED (7) CHF Congestive heart failure Code(s): I50.9 - HEART FAILURE, UNSPECIFIED
[2017-08-25] MEDS: CALCIUM CARBONATE SUSPENSION - 500 MG/5 ML ML PO SCH (10:35)
[2017-08-25] MEDS: CARVEDILOL 12.5 MG TABLET (FP) PO SCH ×2 (10:35→21:19)
[2017-08-25] MEDS: FLUTICASONE PROP 0.05% 16 GM NASAL SPRAY NS SCH ×2 (10:36→21:19)
[2017-08-25] MEDS: LYTES/YERBA SANTA 240 ML BOTTLE MM SCH (10:37)
[2017-08-25] MEDS: PANTOPRAZOLE SODIUM 40 MG VIAL IVPUSH SCH (10:37)
[2017-08-25] MEDS: TIOTROPIUM BROMIDE 18 MCG/INH (DEVICE W/ 5 CAPSULES) IH SCH (10:38)
[2017-08-25] MEDS: BUDESONIDE/FORMETEROL FUMARATE 160/4.5 mcg INHALER IH SCH (10:39)
--- NOTE | 2017-08-25 11:37 | PN ---
Progress Note, Physician Chief Complaint: Events noted. Patient was seen in the morning NG has been taken out Less abdominal pain History of Present Illness: Patient was seen and examined. Awake and alert. Chart was reviewed Denies chest pain, SOB or palpitation As outlined above No surgery planned - Current Medication List Current Medications: Active Medications Acetaminophen (Ofirmev Injection -) 1,000 mg IVPB Q6H PRN PRN Reason: FEVER OR PAIN Last Admin: 08/20/17 15:38 Dose: 1,000 mg Atorvastatin Calcium (Lipitor -) 20 mg PO HS [facility] Last Admin: 08/24/17 20:59 Dose: 20 mg Budesonide/Formoterol Fumarate (Symbicort 160/4.5mcg -) 1 puff IH DAILY [facility] Last Admin: 08/25/17 10:39 Dose: 1 puff Calcium Carbonate (Calcium Carb Oral Suspension -) 500 mg PO DAILY [facility] Last Admin: 08/25/17 10:35 Dose: 500 mg Carvedilol (Coreg -) 12.5 mg PO BID [facility] Last Admin: 08/25/17 10:35 Dose: 12.5 mg Fluticasone Propionate (Flonase -) 1 spray NS BID [facility] Last Admin: 08/25/17 10:36 Dose: 1 spray Hydromorphone HCl (Dilaudid Injection -) 1 mg IVPB Q4H PRN PRN Reason: PAIN Last Admin: 08/22/17 16:20 Dose: 1 mg Piperacillin Sod/Tazobactam (Sod 2.25 gm/ Dextrose) 100 mls @ 200 mls/hr IVPB Q8H-IV [facility] Last Admin: 08/25/17 10:39 Dose: 200 mls/hr Montelukast Sodium (Singulair -) 10 mg PO HS [facility] Last Admin: 08/24/17 20:59 Dose: 10 mg Xopenex Hfa Inhaler (Non-Formulary Med) 1 each IH Q6H PRN PRN Reason: SHORT OF BREATH/WHEEZING Last Admin: 08/11/17 23:06 Dose: 1 each Ondansetron HCl (Zofran Injection) 4 mg IVPUSH Q4H PRN PRN Reason: NAUSEA AND/OR VOMITING Last Admin: 08/18/17 11:20 Dose: 4 mg Pancrelipase (Creon Dr 36,000 Units Capsule) 1 cap PO TIDCM [facility] Last Admin: 08/25/17 08:23 Dose: 1 cap Pantoprazole Sodium (Protonix Iv) 40 mg IVPUSH DAILY [facility] Last Admin: 08/25/17 10:37 Dose: 40 mg Saliva Substitute (Mouthkote Solution -) 1 applic MM DAILY [facility] Last Admin: 08/25/17 10:37 Dose: 1 applic Tamsulosin HCl (Flomax -) 0.4 mg PO HS [facility] Last Admin: 08/24/17 20:59 Dose: 0.4 mg Tiotropium [place] (Spiriva -) 1 puff IH DAILY [facility] Last Admin: 08/25/17 10:38 Dose: 1 puff Trazodone HCl (Desyrel -) 100 mg PO HS [facility] Last Admin: 08/24/17 20:59 Dose: 100 mg Zolpidem Tartrate (Ambien -) 5 mg PO HS PRN PRN Reason: INSOMNIA Last Admin: 08/24/17 20:55 Dose: 5 mg - Objective Vital Signs: Vital Signs Temperature 98.1 F 08/25/17 09:40 Pulse Rate 63 08/25/17 09:40 Respiratory Rate 19 08/25/17 09:40 Blood Pressure 121/67 08/25/17 09:40 O2 Sat by Pulse Oximetry (%) 98 08/24/17 09:00 Eyes: Yes: PERRL Neck: Yes: Supple Cardiovascular: Yes: Regular Rate and Rhythm, S1, S2 Respiratory: Yes: Diminished Gastrointestinal: Yes: Distention (but better) Edema: Yes Labs: CBC, BMP 08/25/17 06:25 08/25/17 06:25 INR, PTT INR 1.32 (0.82-1.09) H 08/12/17 07:45 Problem List - Problems (1) CVD (cerebrovascular disease) Code(s): I67.9 - CEREBROVASCULAR DISEASE, UNSPECIFIED (2) Hypercholesterolemia Code(s): E78.00 - PURE HYPERCHOLESTEROLEMIA, UNSPECIFIED (3) Sick sinus syndrome Code(s): I49.5 - SICK SINUS SYNDROME (4) Presence of permanent cardiac pacemaker Code(s): Z95.0 - PRESENCE OF CARDIAC PACEMAKER (5) Hx of CABG Code(s): Z95.1 - PRESENCE OF AORTOCORONARY BYPASS GRAFT (6) Abdominal pain Code(s): R10.9 - UNSPECIFIED ABDOMINAL PAIN Qualifiers: Abdominal location: unspecified location Qualified Code(s): R10.9 - Unspecified abdominal pain (7) Acute diverticulitis Code(s): K57.92 - DVTRCLI OF INTEST, PART UNSP, W/O PERF OR ABSCESS W/O BLEED (8) Anemia Code(s): D64.9 - ANEMIA, UNSPECIFIED Qualifiers: Anemia type: unspecified type Qualified Code(s): D64.9 - Anemia, unspecified (9) CKD (chronic kidney disease) Code(s): N18.9 - CHRONIC KIDNEY DISEASE, UNSPECIFIED Qualifiers: Chronic kidney disease stage: stage 4 (severe) Qualified Code(s): N18.4 - Chronic kidney disease, stage 4 (severe) (10) Rectal bleeding Code(s): K62.5 - HEMORRHAGE OF ANUS AND RECTUM (11) CHF (congestive heart failure) Code(s): I50.9 - HEART FAILURE, UNSPECIFIED Qualifiers: Congestive heart failure type: combined Congestive heart failure chronicity : acute on chronic Qualified Code(s): I50.43 - Acute on chronic combined systolic (congestive) and diastolic (congestive) heart failure (12) Partial small bowel obstruction Code(s): K56.600 - PARTIAL INTESTINAL OBSTRUCTION, UNSPECIFIED TO CAUSE Assessment/Plan 1. Rectal bleed, underlying diverticulitis with partial SBO with dilated small bowel loops - improving 2. CAD s/p CABG, angina pectoris 3. Persistent AF with underlying PPM for sick sinus syndrome 4. Acute on CKD with creatinine 8.3 5. Hypercholesterolemia 6. CVA/TIA 7. COPD 8. TAA and AAA PLAN: 1. GI and surgery input noted. No surgery planned, but he may need hemodialysis 2. Monitor renal function and plans as per nephrology 3. Continue Carvedilol as tolerated and if able to take PO 4. Continue Atorvastatin 5. Monitor CBC and transfuse PRBC as needed 6. TAA and AAA likely also needs surveillance probably not ready for intervention Further plans are to follow. Currently he is off Eliquis, but will need to resume once cleared Guarded Klever Marti MD
--- NOTE | 2017-08-25 11:59 | SPA.PREOP ---
- PRE-OP NOTE Dx: CKD Planned Procedure: Permacath Insertion Surgeon: Lasha Crandall Consent: To be obtained by surgeon after risks, benefits and alternatives explained to patient. Last Vital Signs Temp Pulse Resp BP Pulse Ox 98.1 F 63 19 121/67 98 08/25/17 09:40 08/25/17 09:40 08/25/17 09:40 08/25/17 09:40 08/24/17 09:00 CBC, BMP 08/25/17 06:25 08/25/17 06:25 INR, PTT INR 1.32 (0.82-1.09) H 08/12/17 07:45 Blood Type Blood Type A POSITIVE 08/10/17 21:00 - IMAGING Chest X-ray: Report Reviewed (Cardiomegaly) X-ray: Report Reviewed (SBO resolved) EKG: Report Reviewed - ASSESSMENT/PLAN 1. Make NPO after midnight except po meds 2. GI/DVT PPX 3. Medical optimization / clearance Problem List - Problems (1) CKD (chronic kidney disease) Assessment/Plan: Going to OR today for Permacath insertion. Keep NPO IVF Dr. Ortega/Renal aware Medical optimization Dr. Crandall agrees with above plan Code(s): N18.9 - CHRONIC KIDNEY DISEASE, UNSPECIFIED Qualifiers: Chronic kidney disease stage: stage 4 (severe) Qualified Code(s): N18.4 - Chronic kidney disease, stage 4 (severe) Visit type - Case Type Case Type: ED Admission - New patient This patient is new to me today: Yes Date on this admission: 08/25/17
--- NOTE | 2017-08-25 12:35 | PN ---
Progress Note (short form) - Note Progress Note: Abdominal symptoms improving. Tolerating clears. No CP or SOB. For Permacath. Intake & Output 08/22/17 08/23/17 08/24/17 08/25/17 23:59 23:59 23:59 23:59 Intake Total 2550 1108 846 50 Output Total 750 950 350 175 Balance 1800 158 496 -125 Weight 179 lb 11.2 oz 180 lb 14.4 oz 181 lb 180 lb 4 oz Last Vital Signs Temp Pulse Resp BP Pulse Ox 98.1 F 63 19 121/67 98 08/25/17 09:40 08/25/17 09:40 08/25/17 09:40 08/25/17 09:40 08/24/17 09:00 Active Medications Acetaminophen (Ofirmev Injection -) 1,000 mg IVPB Q6H PRN PRN Reason: FEVER OR PAIN Last Admin: 08/20/17 15:38 Dose: 1,000 mg Atorvastatin Calcium (Lipitor -) 20 mg PO HS [facility] Last Admin: 08/24/17 20:59 Dose: 20 mg Budesonide/Formoterol Fumarate (Symbicort 160/4.5mcg -) 1 puff IH DAILY [facility] Last Admin: 08/25/17 10:39 Dose: 1 puff Calcium Carbonate (Calcium Carb Oral Suspension -) 500 mg PO DAILY [facility] Last Admin: 08/25/17 10:35 Dose: 500 mg Carvedilol (Coreg -) 12.5 mg PO BID [facility] Last Admin: 08/25/17 10:35 Dose: 12.5 mg Fluticasone Propionate (Flonase -) 1 spray NS BID [facility] Last Admin: 08/25/17 10:36 Dose: 1 spray Hydromorphone HCl (Dilaudid Injection -) 1 mg IVPB Q4H PRN PRN Reason: PAIN Last Admin: 08/22/17 16:20 Dose: 1 mg Piperacillin Sod/Tazobactam (Sod 2.25 gm/ Dextrose) 100 mls @ 200 mls/hr IVPB Q8H-IV [facility] Last Admin: 08/25/17 10:39 Dose: 200 mls/hr Montelukast Sodium (Singulair -) 10 mg PO HS [facility] Last Admin: 08/24/17 20:59 Dose: 10 mg Xopenex Hfa Inhaler (Non-Formulary Med) 1 each IH Q6H PRN PRN Reason: SHORT OF BREATH/WHEEZING Last Admin: 08/11/17 23:06 Dose: 1 each Ondansetron HCl (Zofran Injection) 4 mg IVPUSH Q4H PRN PRN Reason: NAUSEA AND/OR VOMITING Last Admin: 08/18/17 11:20 Dose: 4 mg Pancrelipase (Creon Dr 36,000 Units Capsule) 1 cap PO TIDCM [facility] Last Admin: 08/25/17 11:46 Dose: Not Given Pantoprazole Sodium (Protonix Iv) 40 mg IVPUSH DAILY [facility] Last Admin: 08/25/17 10:37 Dose: 40 mg Saliva Substitute (Mouthkote Solution -) 1 applic MM DAILY [facility] Last Admin: 08/25/17 10:37 Dose: 1 applic Tamsulosin HCl (Flomax -) 0.4 mg PO HS [facility] Last Admin: 08/24/17 20:59 Dose: 0.4 mg Tiotropium [place] (Spiriva -) 1 puff IH DAILY [facility] Last Admin: 08/25/17 10:38 Dose: 1 puff Trazodone HCl (Desyrel -) 100 mg PO HS [facility] Last Admin: 08/24/17 20:59 Dose: 100 mg Zolpidem Tartrate (Ambien -) 5 mg PO HS PRN PRN Reason: INSOMNIA Last Admin: 08/24/17 20:55 Dose: 5 mg Constitutional: Yes: No Distress Neck: Yes: Supple Cardiovascular: Yes: Regular Rate and Rhythm Respiratory: Yes: Diminished at the bases Gastrointestinal: Yes: Soft, Distention, Hypoactive Bowel Sounds Edema: Yes Edema: LLE: 1+, RLE: 1+ Labs: Laboratory Results - last 24 hr 08/25/17 08/25/17 06:25 06:25 WBC 9.3 RBC 3.36 L Hgb 9.9 L D Hct 30.6 L MCV 90.9 MCH 29.4 MCHC 32.3 RDW 15.3 Plt Count 146 MPV 8.3 Neutrophils % 84.2 H Lymphocytes % 5.1 L D Monocytes % 8.7 Eosinophils % 1.4 Basophils % 0.6 Sodium 141 Potassium 3.3 L Chloride 110 H Carbon Dioxide 16 L Anion Gap 15 BUN 104 H Creatinine 8.3 H* Creat Clearance w eGFR 6.39 Random Glucose 88 Calcium 7.5 L Magnesium 2.1 Total Bilirubin 0.4 AST 16 ALT 10 L D Alkaline Phosphatase 61 Total Protein 4.8 L Albumin 2.1 L Prealbumin 16.2 L Problem List - Problems (1) Anemia Code(s): D64.9 - ANEMIA, UNSPECIFIED Qualifiers: Anemia type: unspecified type Qualified Code(s): D64.9 - Anemia, unspecified (2) CVD (cerebrovascular disease) Code(s): I67.9 - CEREBROVASCULAR DISEASE, UNSPECIFIED (3) Hx of CABG Code(s): Z95.1 - PRESENCE OF AORTOCORONARY BYPASS GRAFT (4) Hypercholesterolemia Code(s): E78.00 - PURE HYPERCHOLESTEROLEMIA, UNSPECIFIED (5) Presence of permanent cardiac pacemaker Code(s): Z95.0 - PRESENCE OF CARDIAC PACEMAKER (6) Sick sinus syndrome Code(s): I49.5 - SICK SINUS SYNDROME (7) CHF Congestive heart failure Code(s): I50.9 - HEART FAILURE, UNSPECIFIED (8) Abdominal aortic aneurysm (AAA) Code(s): I71.4 - ABDOMINAL AORTIC ANEURYSM, WITHOUT RUPTURE Qualifiers: Presence of rupture: without rupture Qualified Code(s): I71.4 - Abdominal aortic aneurysm, without rupture (9) Ischemic colitis Code(s): K55.9 - VASCULAR DISORDER OF INTESTINE, UNSPECIFIED (10) Rectal bleeding Code(s): K62.5 - HEMORRHAGE OF ANUS AND RECTUM (11) [id number] kidney injury Code(s): N17.9 - ACUTE KIDNEY FAILURE, UNSPECIFIED; N18.9 - CHRONIC KIDNEY DISEASE, UNSPECIFIED Qualifiers: Acute renal failure type: unspecified Chronic kidney disease stage: stage 4 (severe) Qualified Code(s): N17.9 - Acute kidney failure, unspecified; N18.4 - Chronic kidney disease, stage 4 (severe); N18.4 - Chronic kidney disease , stage 4 (severe); N18.4 - Chronic kidney disease, stage 4 (severe); N18.4 - Chronic kidney disease, stage 4 (severe) PLAN: For Permacath PO as tolerated O2 as needed Pain control Incentive Spirometry VTE prophylaxis Normal transfusion thresholds TAA/AAA surveillance Dr Cordero
[2017-08-25] MEDS ORDERED: ALPRAZolam 0.25 MG TABLET PO ONE (13:30)
--- NOTE | 2017-08-25 14:10 | PN ---
Progress Note, Physician Chief Complaint: Pt seen and examined at bedside. He complains of lower extremity edema. We discussed HD and he agrees to start. - Current Medication List Current Medications: Active Medications Acetaminophen (Ofirmev Injection -) 1,000 mg IVPB Q6H PRN PRN Reason: FEVER OR PAIN Last Admin: 08/20/17 15:38 Dose: 1,000 mg Atorvastatin Calcium (Lipitor -) 20 mg PO HS [facility] Last Admin: 08/24/17 20:59 Dose: 20 mg Budesonide/Formoterol Fumarate (Symbicort 160/4.5mcg -) 1 puff IH DAILY [facility] Last Admin: 08/25/17 10:39 Dose: 1 puff Calcium Carbonate (Calcium Carb Oral Suspension -) 500 mg PO DAILY [facility] Last Admin: 08/25/17 10:35 Dose: 500 mg Carvedilol (Coreg -) 12.5 mg PO BID [facility] Last Admin: 08/25/17 10:35 Dose: 12.5 mg Fluticasone Propionate (Flonase -) 1 spray NS BID [facility] Last Admin: 08/25/17 10:36 Dose: 1 spray Hydromorphone HCl (Dilaudid Injection -) 1 mg IVPB Q4H PRN PRN Reason: PAIN Last Admin: 08/22/17 16:20 Dose: 1 mg Piperacillin Sod/Tazobactam (Sod 2.25 gm/ Dextrose) 100 mls @ 200 mls/hr IVPB Q8H-IV [facility] Last Admin: 08/25/17 10:39 Dose: 200 mls/hr Potassium Chloride (Potassium Chloride 10 Meq Premix Ivpb -) 10 meq in 100 mls @ 100 mls/hr IVPB Q60M [facility] Stop: 08/25/17 16:14 Montelukast Sodium (Singulair -) 10 mg PO HS [facility] Last Admin: 08/24/17 20:59 Dose: 10 mg Xopenex Hfa Inhaler (Non-Formulary Med) 1 each IH Q6H PRN PRN Reason: SHORT OF BREATH/WHEEZING Last Admin: 08/11/17 23:06 Dose: 1 each Ondansetron HCl (Zofran Injection) 4 mg IVPUSH Q4H PRN PRN Reason: NAUSEA AND/OR VOMITING Last Admin: 08/18/17 11:20 Dose: 4 mg Pancrelipase (Creon Dr 36,000 Units Capsule) 1 cap PO TIDCM [facility] Last Admin: 08/25/17 11:46 Dose: Not Given Pantoprazole Sodium (Protonix Iv) 40 mg IVPUSH DAILY [facility] Last Admin: 08/25/17 10:37 Dose: 40 mg Saliva Substitute (Mouthkote Solution -) 1 applic MM DAILY [facility] Last Admin: 08/25/17 10:37 Dose: 1 applic Tamsulosin HCl (Flomax -) 0.4 mg PO HS [facility] Last Admin: 08/24/17 20:59 Dose: 0.4 mg Tiotropium [place] (Spiriva -) 1 puff IH DAILY [facility] Last Admin: 08/25/17 10:38 Dose: 1 puff Trazodone HCl (Desyrel -) 100 mg PO HS [facility] Last Admin: 08/24/17 20:59 Dose: 100 mg Zolpidem Tartrate (Ambien -) 5 mg PO HS PRN PRN Reason: INSOMNIA Last Admin: 08/24/17 20:55 Dose: 5 mg - Objective Vital Signs: Vital Signs Temperature 98.1 F 08/25/17 09:40 Pulse Rate 63 08/25/17 09:40 Respiratory Rate 19 08/25/17 09:40 Blood Pressure 121/67 08/25/17 09:40 O2 Sat by Pulse Oximetry (%) 98 08/24/17 09:00 Constitutional: Yes: Calm Eyes: Yes: Conjunctiva Clear HENT: Yes: Atraumatic Cardiovascular: Yes: S1, S2 Respiratory: Yes: Rhonchi Gastrointestinal: Yes: Soft Genitourinary: Yes: WNL Musculoskeletal: Yes: Muscle Weakness Edema: Yes Edema: LLE: 2+, RLE: 2+ Neurological: Yes: Oriented Psychiatric: Yes: Oriented, Agitated Labs: CBC, BMP 08/25/17 06:25 08/25/17 06:25 INR, PTT INR 1.32 (0.82-1.09) H 08/12/17 07:45 Problem List - Problems (1) CKD (chronic kidney disease) Code(s): N18.9 - CHRONIC KIDNEY DISEASE, UNSPECIFIED Qualifiers: Chronic kidney disease stage: stage 4 (severe) Qualified Code(s): N18.4 - Chronic kidney disease, stage 4 (severe) (2) Anemia Code(s): D64.9 - ANEMIA, UNSPECIFIED Qualifiers: Anemia type: unspecified type Qualified Code(s): D64.9 - Anemia, unspecified (3) Abdominal pain Code(s): R10.9 - UNSPECIFIED ABDOMINAL PAIN Qualifiers: Abdominal location: unspecified location Qualified Code(s): R10.9 - Unspecified abdominal pain (4) Rectal bleeding Code(s): K62.5 - HEMORRHAGE OF ANUS AND RECTUM (5) Acute exacerbation of COPD with asthma Code(s): J44.1 - CHRONIC OBSTRUCTIVE PULMONARY DISEASE W (ACUTE) EXACERBATION; J45.901 - UNSPECIFIED ASTHMA WITH (ACUTE) EXACERBATION (6) CHF (congestive heart failure) Code(s): I50.9 - HEART FAILURE, UNSPECIFIED Qualifiers: Congestive heart failure type: combined Congestive heart failure chronicity : acute on chronic Qualified Code(s): I50.43 - Acute on chronic combined systolic (congestive) and diastolic (congestive) heart failure Assessment/Plan Current Medications Generic Name Dose Route Start Last Admin Trade Name Freq PRN Reason Stop Dose Admin Acetaminophen 1,000 mg 08/19/17 18:30 08/20/17 15:38 Ofirmev Injection - IVPB 1,000 mg Q6H PRN Administration FEVER OR PAIN Atorvastatin Calcium 20 mg 08/10/17 20:15 08/24/17 20:59 Lipitor - PO 20 mg HS [facility] Administration Budesonide/Formoterol Fumarate 1 puff 08/11/17 10:00 08/25/17 10:39 Symbicort 160/4.5mcg - IH 1 puff DAILY [facility] Administration Calcium Carbonate 500 mg 08/11/17 16:30 08/25/17 10:35 Calcium Carb Oral Suspension - PO 500 mg DAILY [facility] Administration Carvedilol 12.5 mg 08/12/17 22:00 08/25/17 10:35 Coreg - PO 12.5 mg BID [facility] Administration Fluticasone Propionate 1 spray 08/10/17 22:00 08/25/17 10:36 Flonase - NS 1 spray BID [facility] Administration Hydromorphone HCl 1 mg 08/22/17 14:17 08/22/17 16:20 Dilaudid Injection - IVPB 1 mg Q4H PRN Administration PAIN Piperacillin Sod/Tazobactam 100 mls @ 200 mls/hr 08/23/17 18:00 08/25/17 10: 39 Sod 2.25 gm/ Dextrose IVPB 200 mls/hr Q8H-IV [facility] Administration Potassium Chloride 20 meq/ 260 mls @ 130 mls/hr 08/25/17 14:15 Sodium Chloride IVPB 08/25/17 16:14 ONCE ONE Montelukast Sodium 10 mg 08/10/17 20:15 08/24/17 20:59 Singulair - PO 10 mg HS [facility] Administration Xopenex Hfa Inhaler 1 each 08/10/17 23:14 08/11/17 23:06 Non-Formulary Med IH 1 each Q6H PRN Administration SHORT OF BREATH/WHEEZING Ondansetron HCl 4 mg 08/17/17 09:36 08/18/17 11:20 Zofran Injection IVPUSH 4 mg Q4H PRN Administration NAUSEA AND/OR VOMITING Pancrelipase 1 cap 08/14/17 08:00 08/25/17 11:[address] 36,000 Units Capsule PO Not Given TIDCM [facility] Pantoprazole Sodium 40 mg 08/19/17 20:15 08/25/17 10:37 Protonix Iv IVPUSH 40 mg DAILY [facility] Administration Saliva Substitute 1 applic 08/21/17 15:30 08/25/17 10:37 Mouthkote Solution - MM 1 applic DAILY [facility] Administration Tamsulosin HCl 0.4 mg 08/10/17 20:15 08/24/17 20:59 Flomax - PO 0.4 mg HS [facility] Administration Tiotropium [place] 1 puff 08/11/17 10:00 08/25/17 10:38 Spiriva - IH 1 puff DAILY [facility] Administration Trazodone HCl 100 mg 08/10/17 22:00 08/24/17 20:59 Desyrel - PO 100 mg HS [facility] Administration Zolpidem Tartrate 5 mg 08/22/17 15:35 08/24/17 20:55 Ambien - PO 5 mg HS PRN Administration INSOMNIA Impression 1. CKD5/ESRD 2. ALAN 3. anemia 4. GI bleed 5. BPH 6. a-fib 7. aortic aneurysm 8. COPD 9. insomnia 10. SBO Plan - pt is tolerating clears - he did not respond to lasix - called vascular for permacath - will need fistula as well - will start HD in am - check hep panel - called and discussed with his daughter - case discussed with surgery - keep arb on hold - will follow closely Dr Ortega
--- NOTE | 2017-08-25 14:11 | PN ---
Progress Note, Physician History of Present Illness: stable abd much better softer patient for permacath today - Current Medication List Current Medications: Active Medications Acetaminophen (Ofirmev Injection -) 1,000 mg IVPB Q6H PRN PRN Reason: FEVER OR PAIN Last Admin: 08/20/17 15:38 Dose: 1,000 mg Atorvastatin Calcium (Lipitor -) 20 mg PO HS [facility] Last Admin: 08/24/17 20:59 Dose: 20 mg Budesonide/Formoterol Fumarate (Symbicort 160/4.5mcg -) 1 puff IH DAILY [facility] Last Admin: 08/25/17 10:39 Dose: 1 puff Calcium Carbonate (Calcium Carb Oral Suspension -) 500 mg PO DAILY [facility] Last Admin: 08/25/17 10:35 Dose: 500 mg Carvedilol (Coreg -) 12.5 mg PO BID [facility] Last Admin: 08/25/17 10:35 Dose: 12.5 mg Fluticasone Propionate (Flonase -) 1 spray NS BID [facility] Last Admin: 08/25/17 10:36 Dose: 1 spray Hydromorphone HCl (Dilaudid Injection -) 1 mg IVPB Q4H PRN PRN Reason: PAIN Last Admin: 08/22/17 16:20 Dose: 1 mg Piperacillin Sod/Tazobactam (Sod 2.25 gm/ Dextrose) 100 mls @ 200 mls/hr IVPB Q8H-IV [facility] Last Admin: 08/25/17 10:39 Dose: 200 mls/hr Potassium Chloride (Potassium Chloride 10 Meq Premix Ivpb -) 10 meq in 100 mls @ 100 mls/hr IVPB Q60M [facility] Stop: 08/25/17 16:14 Montelukast Sodium (Singulair -) 10 mg PO HS [facility] Last Admin: 08/24/17 20:59 Dose: 10 mg Xopenex Hfa Inhaler (Non-Formulary Med) 1 each IH Q6H PRN PRN Reason: SHORT OF BREATH/WHEEZING Last Admin: 08/11/17 23:06 Dose: 1 each Ondansetron HCl (Zofran Injection) 4 mg IVPUSH Q4H PRN PRN Reason: NAUSEA AND/OR VOMITING Last Admin: 08/18/17 11:20 Dose: 4 mg Pancrelipase (Creon Dr 36,000 Units Capsule) 1 cap PO TIDCM [facility] Last Admin: 08/25/17 11:46 Dose: Not Given Pantoprazole Sodium (Protonix Iv) 40 mg IVPUSH DAILY [facility] Last Admin: 08/25/17 10:37 Dose: 40 mg Saliva Substitute (Mouthkote Solution -) 1 applic MM DAILY [facility] Last Admin: 08/25/17 10:37 Dose: 1 applic Tamsulosin HCl (Flomax -) 0.4 mg PO HS [facility] Last Admin: 08/24/17 20:59 Dose: 0.4 mg Tiotropium [place] (Spiriva -) 1 puff IH DAILY [facility] Last Admin: 08/25/17 10:38 Dose: 1 puff Trazodone HCl (Desyrel -) 100 mg PO HS [facility] Last Admin: 08/24/17 20:59 Dose: 100 mg Zolpidem Tartrate (Ambien -) 5 mg PO HS PRN PRN Reason: INSOMNIA Last Admin: 08/24/17 20:55 Dose: 5 mg - Objective Vital Signs: Vital Signs Temperature 98.1 F 08/25/17 09:40 Pulse Rate 63 08/25/17 09:40 Respiratory Rate 19 08/25/17 09:40 Blood Pressure 121/67 08/25/17 09:40 O2 Sat by Pulse Oximetry (%) 98 08/24/17 09:00 Constitutional: Yes: No Distress, Calm Cardiovascular: Yes: Regular Rate and Rhythm Respiratory: Yes: Regular, CTA Bilaterally Gastrointestinal: Yes: Soft, Distention Musculoskeletal: Yes: WNL Extremities: Yes: WNL Neurological: Yes: Alert, Oriented Psychiatric: Yes: Alert, Oriented Labs: CBC, BMP 08/25/17 06:25 08/25/17 06:25 INR, PTT INR 1.32 (0.82-1.09) H 08/12/17 07:45 Assessment/Plan Problem List - Problems (1) Rectal bleeding Assessment/Plan: resolved Code(s): K62.5 - HEMORRHAGE OF ANUS AND RECTUM (2) CHF (congestive heart failure) Assessment/Plan: stable no sob Code(s): I50.9 - HEART FAILURE, UNSPECIFIED Qualifiers: Congestive heart failure type: combined Congestive heart failure chronicity : acute on chronic Qualified Code(s): I50.43 - Acute on chronic combined systolic (congestive) and diastolic (congestive) heart failure (3) Acute diverticulitis Assessment/Plan: on iv abx id on board Code(s): K57.92 - DVTRCLI OF INTEST, PART UNSP, W/O PERF OR ABSCESS W/O BLEED (4) Anemia Assessment/Plan: monitor s/p prbc transfusion Code(s): D64.9 - ANEMIA, UNSPECIFIED Qualifiers: Anemia type: unspecified type Qualified Code(s): D64.9 - Anemia, unspecified (5) CKD (chronic kidney disease) Assessment/Plan: monitor...cr LITTLE BETTER on ivf...NEED FOR HD renal on board Code(s): N18.9 - CHRONIC KIDNEY DISEASE, UNSPECIFIED Qualifiers: Chronic kidney disease stage: stage 4 (severe) Qualified Code(s): N18.4 - Chronic kidney disease, stage 4 (severe) (6) CHF Congestive heart failure Code(s): I50.9 - HEART FAILURE, UNSPECIFIED (7) SBO (small bowel obstruction) Assessment/Plan: npo, ivf.. iv pain meds ngt in place as xray was worse today Code(s): K56.609 - UNSP INTESTNL OBST, UNSP TO PARTIAL VERSUS COMPLETE OBST (8) Hypercholesterolemia Code(s): E78.00 - PURE HYPERCHOLESTEROLEMIA, UNSPECIFIED patient already has been on levaquin and flagyl plan patient going for permacath today will probably stop abx tomorrow rest ct current mgmt rest as per primary
[2017-08-25] MEDS ORDERED: POTASSIUM CHLORIDE 20 MEQ in SODIUM CHLORIDE 250 ML IVPB ONE (14:15)
[2017-08-25] MEDS ORDERED: KCL 10 MEQ IVPB 10 MEQ/100 ML INFUS.BAG IVPB SCH (14:15)
[2017-08-25] MEDS ORDERED: LIDOCAINE HCL 1%, 10 MG/ML (20ML VIAL) ONE (15:43)
[2017-08-25] MEDS ORDERED: ONDANSETRON 4 MG/2 ML VIAL IVPUSH PRN ×3 (15:46→17:58)
[2017-08-25] MEDS ORDERED: PROMETHAZINE HCL 25 MG/1 ML VIAL IVPB PRN ×2 (15:46→17:58)
[2017-08-25] MEDS ORDERED: LACTATED RINGERS SOLUTION 1,000 ML IV SCH (16:00)
[2017-08-25] MEDS ORDERED: ceFAZolin SODIUM 1 GM VIAL IVPB ONE (16:58)
[2017-08-25] MEDS ORDERED: MIDAZOLAM HCL 2 MG/2 ML SINGLE DOSE VIAL ONE (16:59)
[2017-08-25] MEDS ORDERED: LIDOCAINE HCL 1%, 10 MG/ML (20ML VIAL) NR ONE ×2 (17:02)
[2017-08-25] MEDS ORDERED: ceFAZolin SODIUM 1 GM VIAL ONE (17:02)
--- NOTE | 2017-08-25 17:20 | OP ---
Operative Note - Note: Operative Date: 08/25/17 Operation: Insertion of permacath Post-Operative Diagnosis: Same as Pre-op Surgeon: Lasha Crandall Anesthesia: Fractional Estimated Blood Loss (mls): 10 Operative Report Dictated: Yes
[2017-08-25] MEDS ORDERED: ALBUTEROL SO4 18 GM HFA INHALER IH PRN (17:58)
[2017-08-25] MEDS ORDERED: ACETAMINOPHEN 1000 MG/100 ML VIAL (NON FORMULARY) IVPB PRN (17:58)
[2017-08-25] MEDS ORDERED: LORazepam 2 MG/ML SDV VIAL IVPUSH ONE (17:58)
[2017-08-25] MEDS ORDERED: PIPERACILLIN/TAZOB 2.25 GM 2.25 GM in DEXTROSE 5%-WATER - 100 ML IVPB SCH (18:00)
[2017-08-25] MEDS: PIPERACILLIN/TAZOB 2.25 GM 2.25 GM/50 ML BAG IVPB SCH (19:02)
[2017-08-25] MEDS: LACTATED RINGERS SOLUTION 1,000 ML IV SCH (20:03)
[2017-08-25] MEDS: TAMSULOSIN HCL 0.4 MG CAP.ER.24H (FP) PO SCH (21:18)
[2017-08-25] MEDS: ATORVASTATIN CA 20 MG TABLET (FP) PO SCH (21:18)
[2017-08-25] MEDS: traZODone HCL 50 MG TABLET (FP) PO SCH (21:18)
[2017-08-25] MEDS: MONTELUKAST NA 10 MG TABLET PO SCH (21:19)
[2017-08-25] MEDS: ZOLPIDEM TARTRATE 5 MG TABLET PO PRN (22:15)
[2017-08-26] MEDS: PIPERACILLIN/TAZOB 2.25 GM 2.25 GM/50 ML BAG IVPB SCH ×3 (01:47→17:55)
[2017-08-26] MEDS ORDERED: PT OWN MED DRAWER 7, Y5N ONE ×6 (07:45→21:07)
[2017-08-26] MEDS: LIPASE/PROTEASE/AMYLASE 36,000 UNIT CAPSULE PO SCH ×3 (07:50→17:35)
--- NOTE | 2017-08-26 09:11 | PN ---
Progress Note, Physician Chief Complaint: small bowel obstruction History of Present Illness: 71 yo male with a MMP with history of intermittent constipation. Patient states he had a colonoscopy 5 years previous which was normal. CTscan on 08/17 shows distended stomach and small bowel, contrast was very proximal. Only previous abdominal surgery was an open appendectomy. abdominal pain is mostly resolved, having flatus and bowel movements. Tolerated full liquids. Seen during first dialysis. - Current Medication List Current Medications: Active Medications Acetaminophen (Ofirmev Injection -) 1,000 mg IVPB Q6H PRN PRN Reason: FEVER OR PAIN Albuterol Sulfate (Ventolin Hfa Inhaler -) 1 puff IH Q6H PRN PRN Reason: SHORT OF BREATH/WHEEZING Atorvastatin Calcium (Lipitor -) 20 mg PO HS [facility] Last Admin: 08/25/17 21:18 Dose: 20 mg Budesonide/Formoterol Fumarate (Symbicort 160/4.5mcg -) 1 puff IH DAILY [facility] Calcium Carbonate (Calcium Carb Oral Suspension -) 500 mg PO DAILY [facility] Carvedilol (Coreg -) 12.5 mg PO BID [facility] Last Admin: 08/25/17 21:19 Dose: 12.5 mg Fentanyl (Sublimaze Injection -) 50 mcg IVPUSH [id number] PRN PRN Reason: PAIN Fluticasone Propionate (Flonase -) 1 spray NS BID [facility] Last Admin: 08/25/17 21:19 Dose: 1 spray Lactated Ringer's (Lactated Ringers Solution) 1,000 mls @ 125 mls/hr IV ASDIR [facility] Last Admin: 08/25/17 20:03 Dose: Not Given Piperacillin/Tazobactam/Dextrose (Zosyn 2.25gm Ivpb (Premix)) 2.25 gm in 50 mls @ 100 mls/hr IVPB Q8H-IV [facility] Last Admin: 08/26/17 01:47 Dose: 100 mls/hr Montelukast Sodium (Singulair -) 10 mg PO HS [facility] Last Admin: 08/25/17 21:19 Dose: 10 mg Ondansetron HCl (Zofran Injection) 4 mg IVPUSH Q4H PRN PRN Reason: NAUSEA AND/OR VOMITING Ondansetron HCl (Zofran Injection) 4 mg IVPUSH Q6H PRN PRN Reason: NAUSEA AND/OR VOMITING Pancrelipase ([place] 36,000 Units Capsule) 1 cap PO TIDCM [facility] Last Admin: 08/26/17 07:50 Dose: 1 cap Pantoprazole Sodium (Protonix Iv) 40 mg IVPUSH DAILY [facility] Promethazine HCl (Phenergan Injection -) 12.5 mg IVPB Q6H PRN PRN Reason: NAUSEA-FOR RESCUE AFTER 15 MIN Saliva Substitute (Mouthkote Solution -) 1 applic MM DAILY [facility] Tamsulosin HCl (Flomax -) 0.4 mg PO HS [facility] Last Admin: 08/25/17 21:18 Dose: 0.4 mg Tiotropium [place] (Spiriva -) 1 puff IH DAILY [facility] Trazodone HCl (Desyrel -) 100 mg PO HS [facility] Last Admin: 08/25/17 21:18 Dose: 100 mg Zolpidem Tartrate (Ambien -) 5 mg PO HS PRN PRN Reason: INSOMNIA Last Admin: 08/25/17 22:15 Dose: 5 mg - Objective Vital Signs: Vital Signs Temperature 97.9 F 08/26/17 08:00 Pulse Rate 61 08/26/17 08:00 Respiratory Rate 18 08/26/17 08:00 Blood Pressure 111/51 08/26/17 08:00 O2 Sat by Pulse Oximetry (%) 100 08/25/17 18:20 Vital Signs Period Temp Pulse Resp BP Sys/Whitaker Pulse Ox Last 24 Hr 97.6 F-98.1 F 60-80 12-20 97-146/51-70 93-100 Intake & Output 08/25/17 08/26/17 08/26/17 23:59 07:59 15:59 Intake Total 380 50 Balance 380 50 Weight 182 lb 6 oz Intake: IV 180 50 S/L 50 50 Oral 200 Other: Voiding Method Urinal Bowel Movement No Weight Measurement Method Built in [facility] Constitutional: Yes: No Distress, Calm, Obese Eyes: Yes: Conjunctiva Clear, EOM Intact HENT: Yes: Atraumatic, Normocephalic Neck: Yes: Supple, Trachea Midline Cardiovascular: Yes: Regular Rate and Rhythm, S1, S2 Respiratory: Yes: Regular, CTA Bilaterally Gastrointestinal: Yes: Normal Bowel Sounds, Soft ...Rectal Exam: Yes: Deferred Genitourinary: No: CVA Tenderness - Left, CVA Tenderness - Right Edema: Yes Peripheral Pulses WNL: Yes Neurological: Yes: Alert, Oriented Psychiatric: Yes: Alert, Oriented Labs: CBC, BMP 08/26/17 10:00 08/26/17 10:00 post dialysis Problem List - Problems (1) SBO (small bowel obstruction) Assessment/Plan: 71yo male MMP presents with a partial SBO, h/o appendectomy, recent normal colonoscopy, more likely paralytics ileus which appeared to be resolving last night but is worse today. (He has cups of water from the bathroom). NGT discontinued yesterday no vomiting, however abdominal distension is worse on exam. WBC is normal. resolving partial SBO versus ileus. Tolerating clears GI fuction is reported as more normal and regular. advance diet as tolerated - agree with renal diet monitor electrolytes recommendations per Nephrology encourage ambulation resume oral cardiac medication will follow for serial exams Code(s): K56.609 - UNSP INTESTNL OBST, UNSP TO PARTIAL VERSUS COMPLETE OBST (2) Abdominal pain Code(s): R10.9 - UNSPECIFIED ABDOMINAL PAIN Qualifiers: Abdominal location: unspecified location Qualified Code(s): R10.9 - Unspecified abdominal pain (3) Ileus, unspecified Code(s): K56.7 - ILEUS, UNSPECIFIED (4) Acute diverticulitis Code(s): K57.92 - DVTRCLI OF INTEST, PART UNSP, W/O PERF OR ABSCESS W/O BLEED (5) Anemia Code(s): D64.9 - ANEMIA, UNSPECIFIED Qualifiers: Anemia type: unspecified type Qualified Code(s): D64.9 - Anemia, unspecified (6) Hypercholesterolemia Code(s): E78.00 - PURE HYPERCHOLESTEROLEMIA, UNSPECIFIED (7) CHF Congestive heart failure Code(s): I50.9 - HEART FAILURE, UNSPECIFIED
--- NOTE | 2017-08-26 09:11 | PN ---
Progress Note, Physician Chief Complaint: On HD unit ,feels OK History of Present Illness: Had permacath inserted by Dr Raz CHAVARRIA in progress Diet well tolerated - Current Medication List Current Medications: Active Medications Acetaminophen (Ofirmev Injection -) 1,000 mg IVPB Q6H PRN PRN Reason: FEVER OR PAIN Albuterol Sulfate (Ventolin Hfa Inhaler -) 1 puff IH Q6H PRN PRN Reason: SHORT OF BREATH/WHEEZING Atorvastatin Calcium (Lipitor -) 20 mg PO HS [facility] Last Admin: 08/25/17 21:18 Dose: 20 mg Budesonide/Formoterol Fumarate (Symbicort 160/4.5mcg -) 1 puff IH DAILY [facility] Calcium Carbonate (Calcium Carb Oral Suspension -) 500 mg PO DAILY [facility] Carvedilol (Coreg -) 12.5 mg PO BID [facility] Last Admin: 08/25/17 21:19 Dose: 12.5 mg Fentanyl (Sublimaze Injection -) 50 mcg IVPUSH [id number] PRN PRN Reason: PAIN Fluticasone Propionate (Flonase -) 1 spray NS BID [facility] Last Admin: 08/25/17 21:19 Dose: 1 spray Lactated Ringer's (Lactated Ringers Solution) 1,000 mls @ 125 mls/hr IV ASDIR [facility] Last Admin: 08/25/17 20:03 Dose: Not Given Piperacillin/Tazobactam/Dextrose (Zosyn 2.25gm Ivpb (Premix)) 2.25 gm in 50 mls @ 100 mls/hr IVPB Q8H-IV [facility] Last Admin: 08/26/17 01:47 Dose: 100 mls/hr Montelukast Sodium (Singulair -) 10 mg PO HS [facility] Last Admin: 08/25/17 21:19 Dose: 10 mg Ondansetron HCl (Zofran Injection) 4 mg IVPUSH Q4H PRN PRN Reason: NAUSEA AND/OR VOMITING Ondansetron HCl (Zofran Injection) 4 mg IVPUSH Q6H PRN PRN Reason: NAUSEA AND/OR VOMITING Pancrelipase ([place] 36,000 Units Capsule) 1 cap PO TIDCM [facility] Last Admin: 08/26/17 07:50 Dose: 1 cap Pantoprazole Sodium (Protonix Iv) 40 mg IVPUSH DAILY [facility] Promethazine HCl (Phenergan Injection -) 12.5 mg IVPB Q6H PRN PRN Reason: NAUSEA-FOR RESCUE AFTER 15 MIN Saliva Substitute (Mouthkote Solution -) 1 applic MM DAILY [facility] Tamsulosin HCl (Flomax -) 0.4 mg PO HS [facility] Last Admin: 08/25/17 21:18 Dose: 0.4 mg Tiotropium [place] (Spiriva -) 1 puff IH DAILY [facility] Trazodone HCl (Desyrel -) 100 mg PO HS [facility] Last Admin: 08/25/17 21:18 Dose: 100 mg Zolpidem Tartrate (Ambien -) 5 mg PO HS PRN PRN Reason: INSOMNIA Last Admin: 08/25/17 22:15 Dose: 5 mg - Objective Vital Signs: Vital Signs Temperature 97.9 F 08/26/17 08:00 Pulse Rate 61 08/26/17 08:00 Respiratory Rate 18 08/26/17 08:00 Blood Pressure 111/51 08/26/17 08:00 O2 Sat by Pulse Oximetry (%) 100 08/25/17 18:20 Constitutional: Yes: No Distress Eyes: Yes: WNL HENT: Yes: WNL Neck: Yes: WNL Cardiovascular: Yes: WNL Respiratory: Yes: WNL Gastrointestinal: Yes: Soft ...Rectal Exam: Yes: Deferred Edema: Yes Edema: LLE: 1+, RLE: 1+ Neurological: Yes: Alert Labs: CBC, BMP 08/25/17 06:25 08/25/17 06:25 INR, PTT INR 1.32 (0.82-1.09) H 08/12/17 07:45 Assessment/Plan After one more dialysis ,can be discharged home
[2017-08-26 10:53] LABS: BASO % 0.2 % (0-2.0); EOS % 0.6 % (0-4.5); HEMATOCRIT 26.1 % (35.4-49); HEMOGLOBIN 8.5 GM/dL (11.7-16.9); MCHC 32.5 g/dl (32.0-35.9); MEAN CELL VOLUME 89.2 fl (80-96); MEAN PLT VOLUME 7.9 fl (7.5-11.1); MONO % 6.2 % (3.8-10.2); PLATELET COUNT 152 K/MM3 (134-434); RBC 2.92 M/mm3 (4.00-5.60); RDW 15.2 % (11.9-15.9); WHITE BLOOD COUNT 10.3 K/mm3 (4.0-10.0)
[2017-08-26 11:20] LABS: ALK PHOS 57 U/L (45-117); ANION GAP 10 (8-16); BILIRUBIN,TOTAL 0.3 mg/dL (0.2-1.0); BLOOD UREA NITROGEN 55 mg/dL (7-18); CALCIUM 7.5 mg/dL (8.5-10.1); CHLORIDE 108 mmol/L (98-107); CO2 25 mmol/L (21-32); CREATININE 4.5 mg/dL (0.7-1.3); GLUCOSE,RANDOM 115 mg/dL (74-106); PHOSPHOROUS 3.1 mg/dL (2.5-4.9); SGOT/AST 13 U/L (15-37); SGPT/ALT 11 U/L (12-78); SODIUM 143 mmol/L (136-145); TOT PROT 4.8 g/dl (6.4-8.2)
--- NOTE | 2017-08-26 12:03 | PN ---
Progress Note, Physician History of Present Illness: Abd pain and distension resolved, tolerating regular diet without nausea/ emesis. HD initiated via right PC - Current Medication List Current Medications: Active Medications Acetaminophen (Ofirmev Injection -) 1,000 mg IVPB Q6H PRN PRN Reason: FEVER OR PAIN Albuterol Sulfate (Ventolin Hfa Inhaler -) 1 puff IH Q6H PRN PRN Reason: SHORT OF BREATH/WHEEZING Atorvastatin Calcium (Lipitor -) 20 mg PO HS [facility] Last Admin: 08/25/17 21:18 Dose: 20 mg Budesonide/Formoterol Fumarate (Symbicort 160/4.5mcg -) 1 puff IH DAILY [facility] Calcium Carbonate (Calcium Carb Oral Suspension -) 500 mg PO DAILY [facility] Carvedilol (Coreg -) 12.5 mg PO BID [facility] Last Admin: 08/25/17 21:19 Dose: 12.5 mg Fentanyl (Sublimaze Injection -) 50 mcg IVPUSH [id number] PRN PRN Reason: PAIN Fluticasone Propionate (Flonase -) 1 spray NS BID [facility] Last Admin: 08/25/17 21:19 Dose: 1 spray Lactated Ringer's (Lactated Ringers Solution) 1,000 mls @ 125 mls/hr IV ASDIR [facility] Last Admin: 08/25/17 20:03 Dose: Not Given Piperacillin/Tazobactam/Dextrose (Zosyn 2.25gm Ivpb (Premix)) 2.25 gm in 50 mls @ 100 mls/hr IVPB Q8H-IV [facility] Last Admin: 08/26/17 01:47 Dose: 100 mls/hr Montelukast Sodium (Singulair -) 10 mg PO [facility] Last Admin: 08/25/17 21:19 Dose: 10 mg Ondansetron HCl (Zofran Injection) 4 mg IVPUSH Q4H PRN PRN Reason: NAUSEA AND/OR VOMITING Ondansetron HCl (Zofran Injection) 4 mg IVPUSH Q6H PRN PRN Reason: NAUSEA AND/OR VOMITING Pancrelipase (Creon Dr 36,000 Units Capsule) 1 cap PO TIDCM [facility] Last Admin: 08/26/17 07:50 Dose: 1 cap Pantoprazole Sodium (Protonix Iv) 40 mg IVPUSH DAILY [facility] Promethazine HCl (Phenergan Injection -) 12.5 mg IVPB Q6H PRN PRN Reason: NAUSEA-FOR RESCUE AFTER 15 MIN Saliva Substitute (Mouthkote Solution -) 1 applic MM DAILY [facility] Tamsulosin HCl (Flomax -) 0.4 mg PO HS [facility] Last Admin: 08/25/17 21:18 Dose: 0.4 mg Tiotropium [place] (Spiriva -) 1 puff IH DAILY [facility] Trazodone HCl (Desyrel -) 100 mg PO HS [facility] Last Admin: 08/25/17 21:18 Dose: 100 mg Zolpidem Tartrate (Ambien -) 5 mg PO HS PRN PRN Reason: INSOMNIA Last Admin: 08/25/17 22:15 Dose: 5 mg - Objective Vital Signs: Vital Signs Temperature 98.4 F 08/26/17 08:40 Pulse Rate 61 08/26/17 11:20 Respiratory Rate 18 08/26/17 11:20 Blood Pressure 120/68 08/26/17 11:20 O2 Sat by Pulse Oximetry (%) 97 08/26/17 09:00 Constitutional: Yes: No Distress, Calm Neck: Yes: Supple Cardiovascular: Yes: Regular Rate and Rhythm Respiratory: Yes: Regular, CTA Bilaterally Gastrointestinal: Yes: Normal Bowel Sounds, Soft Edema: Yes Edema: LLE: 2+, RLE: 2+ Labs: CBC, BMP 08/26/17 10:00 INR, PTT INR 1.32 (0.82-1.09) H 08/12/17 07:45 - ....Imaging Chest X-ray: Report Reviewed (NAD, no PTX) Problem List - Problems (1) Anemia Code(s): D64.9 - ANEMIA, UNSPECIFIED Qualifiers: Anemia type: unspecified type Qualified Code(s): D64.9 - Anemia, unspecified (2) CVD (cerebrovascular disease) Code(s): I67.9 - CEREBROVASCULAR DISEASE, UNSPECIFIED (3) Hx of CABG Code(s): Z95.1 - PRESENCE OF AORTOCORONARY BYPASS GRAFT (4) Hypercholesterolemia Code(s): E78.00 - PURE HYPERCHOLESTEROLEMIA, UNSPECIFIED (5) Presence of permanent cardiac pacemaker Code(s): Z95.0 - PRESENCE OF CARDIAC PACEMAKER (6) Sick sinus syndrome Code(s): I49.5 - SICK SINUS SYNDROME (7) CHF Congestive heart failure Code(s): I50.9 - HEART FAILURE, UNSPECIFIED (8) Abdominal aortic aneurysm (AAA) Code(s): I71.4 - ABDOMINAL AORTIC ANEURYSM, WITHOUT RUPTURE Qualifiers: Presence of rupture: without rupture Qualified Code(s): I71.4 - Abdominal aortic aneurysm, without rupture (9) Ischemic colitis Code(s): K55.9 - VASCULAR DISORDER OF INTESTINE, UNSPECIFIED (10) Rectal bleeding Code(s): K62.5 - HEMORRHAGE OF ANUS AND RECTUM (11) [id number] kidney injury Code(s): N17.9 - ACUTE KIDNEY FAILURE, UNSPECIFIED; N18.9 - CHRONIC KIDNEY DISEASE, UNSPECIFIED Qualifiers: Acute renal failure type: unspecified Chronic kidney disease stage: stage 5 , not on chronic dialysis Qualified Code(s): N17.9 - Acute kidney failure, unspecified; N18.5 - Chronic kidney disease, stage 5; N18.5 - Chronic kidney disease, stage 5; N18.5 - Chronic kidney disease, stage 5; N18.5 - Chronic kidney disease, stage 5 Assessment/Plan 1. Rectal bleed, underlying diverticulitis with partial SBO with dilated small bowel loops - resolved 2. CAD s/p CABG, angina pectoris 3. Persistent AF with underlying PPM for sick sinus syndrome 4. Acute on CKD on HD 5. Hypercholesterolemia 6. CVA/TIA 7. COPD 8. TAA and AAA PLAN: 1. Hemodialysis initiated via right PC 2. Plan for AVF 3. Continue Carvedilol 12.5 bid 4. Continue Atorvastatin 20 qhs 5. Monitor CBC and transfuse PRBC as needed 6. TAA and AAA likely also needs surveillance probably not ready for intervention Further plans are to follow. Currently he is off Eliquis, but will need to resume systemic a/c several weeks after resolution of rectal bleed
--- NOTE | 2017-08-26 13:01 | PN ---
Progress Note (short form) - Note Progress Note: POD #1 Alert sitting in chair with family at bedside. Tolerating PO diet. S/p HD via PC this morning without difficulty. Denies n/v/f/c, CP, SOB, MCKEON. AVSS. Afebrile Gen: nad Chest: right chest wall dressing c/d/i. No hematoma Problem List - Problems (1) CKD (chronic kidney disease) Assessment/Plan: POD #1 s/p permacath insertion. Successfully used PC this morning. Cont medical management No further vascular surgery intervention On behalf of Dr. Crandall, thank you for the opportunity to participate in yur patient's care. Code(s): N18.9 - CHRONIC KIDNEY DISEASE, UNSPECIFIED Qualifiers: Chronic kidney disease stage: stage 4 (severe) Qualified Code(s): N18.4 - Chronic kidney disease, stage 4 (severe)
--- NOTE | 2017-08-26 13:13 | PN ---
Progress Note (short form) - Note Progress Note: Anesthesia Pt seen and examined A;Alert and awake O: Vital Signs Temperature 98.4 F 08/26/17 08:40 Pulse Rate 61 08/26/17 11:20 Respiratory Rate 18 08/26/17 11:20 Blood Pressure 120/68 08/26/17 11:20 O2 Sat by Pulse Oximetry (%) 97 08/26/17 09:00 CBC, BMP 08/26/17 10:00 08/26/17 10:00 A/P s/p perma cath placement Doing well post op Continue current care Joseph Burnett MD
[2017-08-26] MEDS: TIOTROPIUM BROMIDE 18 MCG/INH (DEVICE W/ 5 CAPSULES) IH SCH (13:22)
[2017-08-26] MEDS: CARVEDILOL 12.5 MG TABLET (FP) PO SCH ×2 (13:23→21:09)
[2017-08-26] MEDS: CALCIUM CARBONATE SUSPENSION - 500 MG/5 ML ML PO SCH (13:24)
[2017-08-26] MEDS: FLUTICASONE PROP 0.05% 16 GM NASAL SPRAY NS SCH ×2 (13:25→21:10)
[2017-08-26] MEDS: BUDESONIDE/FORMETEROL FUMARATE 160/4.5 mcg INHALER IH SCH (13:26)
[2017-08-26] MEDS: LYTES/YERBA SANTA 240 ML BOTTLE MM SCH (13:36)
[2017-08-26] MEDS: PANTOPRAZOLE SODIUM 40 MG VIAL IVPUSH SCH (13:48)
[2017-08-26] MEDS ORDERED: POTASSIUM CHLORIDE TABS 20 MEQ TABLET.ER (FP) PO ONE (14:00)
--- NOTE | 2017-08-26 15:53 | PN ---
Progress Note, Physician History of Present Illness: stable abd much better softer permacath placed - Current Medication List Current Medications: Active Medications Acetaminophen (Ofirmev Injection -) 1,000 mg IVPB Q6H PRN PRN Reason: FEVER OR PAIN Albuterol Sulfate (Ventolin Hfa Inhaler -) 1 puff IH Q6H PRN PRN Reason: SHORT OF BREATH/WHEEZING Atorvastatin Calcium (Lipitor -) 20 mg PO HS [facility] Last Admin: 08/25/17 21:18 Dose: 20 mg Budesonide/Formoterol Fumarate (Symbicort 160/4.5mcg -) 1 puff IH DAILY [facility] Last Admin: 08/26/17 13:26 Dose: 1 puff Calcium Carbonate (Calcium Carb Oral Suspension -) 500 mg PO DAILY [facility] Last Admin: 08/26/17 13:24 Dose: 500 mg Carvedilol (Coreg -) 12.5 mg PO BID [facility] Last Admin: 08/26/17 13:23 Dose: 12.5 mg Fentanyl (Sublimaze Injection -) 50 mcg IVPUSH [id number] PRN PRN Reason: PAIN Fluticasone Propionate (Flonase -) 1 spray NS BID [facility] Last Admin: 08/26/17 13:25 Dose: 1 spray Lactated Ringer's (Lactated Ringers Solution) 1,000 mls @ 125 mls/hr IV ASDIR [facility] Last Admin: 08/25/17 20:03 Dose: Not Given Piperacillin/Tazobactam/Dextrose (Zosyn 2.25gm Ivpb (Premix)) 2.25 gm in 50 mls @ 100 mls/hr IVPB Q8H-IV [facility] Last Admin: 08/26/17 13:20 Dose: 100 mls/hr Montelukast Sodium (Singulair -) 10 mg PO HS [facility] Last Admin: 08/25/17 21:19 Dose: 10 mg Ondansetron HCl (Zofran Injection) 4 mg IVPUSH Q4H PRN PRN Reason: NAUSEA AND/OR VOMITING Ondansetron HCl (Zofran Injection) 4 mg IVPUSH Q6H PRN PRN Reason: NAUSEA AND/OR VOMITING Pancrelipase (Creon Dr 36,000 Units Capsule) 1 cap PO TIDCM [facility] Last Admin: 08/26/17 13:21 Dose: 1 cap Pantoprazole Sodium (Protonix Iv) 40 mg IVPUSH DAILY [facility] Last Admin: 08/26/17 13:48 Dose: 40 mg Promethazine HCl (Phenergan Injection -) 12.5 mg IVPB Q6H PRN PRN Reason: NAUSEA-FOR RESCUE AFTER 15 MIN Saliva Substitute (Mouthkote Solution -) 1 applic MM DAILY [facility] Last Admin: 08/26/17 13:36 Dose: 1 applic Tamsulosin HCl (Flomax -) 0.4 mg PO HS [facility] Last Admin: 08/25/17 21:18 Dose: 0.4 mg Tiotropium [place] (Spiriva -) 1 puff IH DAILY [facility] Last Admin: 08/26/17 13:22 Dose: 1 puff Trazodone HCl (Desyrel -) 100 mg PO HS [facility] Last Admin: 08/25/17 21:18 Dose: 100 mg Zolpidem Tartrate (Ambien -) 5 mg PO HS PRN PRN Reason: INSOMNIA Last Admin: 08/25/17 22:15 Dose: 5 mg - Objective Vital Signs: Vital Signs Temperature 97.5 F L 08/26/17 15:02 Pulse Rate 69 08/26/17 15:02 Respiratory Rate 18 08/26/17 15:02 Blood Pressure 102/68 08/26/17 15:02 O2 Sat by Pulse Oximetry (%) 97 08/26/17 09:00 Constitutional: Yes: No Distress, Calm Cardiovascular: Yes: Regular Rate and Rhythm Respiratory: Yes: Regular, CTA Bilaterally Gastrointestinal: Yes: Normal Bowel Sounds, Soft Musculoskeletal: Yes: WNL Extremities: Yes: WNL Neurological: Yes: Alert, Oriented Psychiatric: Yes: Alert, Oriented Labs: CBC, BMP 08/26/17 10:00 08/26/17 10:00 INR, PTT INR 1.32 (0.82-1.09) H 08/12/17 07:45 Assessment/Plan Problem List - Problems (1) Rectal bleeding Assessment/Plan: resolved Code(s): K62.5 - HEMORRHAGE OF ANUS AND RECTUM (2) CHF (congestive heart failure) Assessment/Plan: stable no sob Code(s): I50.9 - HEART FAILURE, UNSPECIFIED Qualifiers: Congestive heart failure type: combined Congestive heart failure chronicity : acute on chronic Qualified Code(s): I50.43 - Acute on chronic combined systolic (congestive) and diastolic (congestive) heart failure (3) Acute diverticulitis Assessment/Plan: on iv abx id on board Code(s): K57.92 - DVTRCLI OF INTEST, PART UNSP, W/O PERF OR ABSCESS W/O BLEED (4) Anemia Assessment/Plan: monitor s/p prbc transfusion Code(s): D64.9 - ANEMIA, UNSPECIFIED Qualifiers: Anemia type: unspecified type Qualified Code(s): D64.9 - Anemia, unspecified (5) CKD (chronic kidney disease) Assessment/Plan: monitor...cr LITTLE BETTER on ivf...NEED FOR HD renal on board Code(s): N18.9 - CHRONIC KIDNEY DISEASE, UNSPECIFIED Qualifiers: Chronic kidney disease stage: stage 4 (severe) Qualified Code(s): N18.4 - Chronic kidney disease, stage 4 (severe) (6) CHF Congestive heart failure Code(s): I50.9 - HEART FAILURE, UNSPECIFIED (7) SBO (small bowel obstruction) Assessment/Plan: npo, ivf.. iv pain meds ngt in place as xray was worse today Code(s): K56.609 - UNSP INTESTNL OBST, UNSP TO PARTIAL VERSUS COMPLETE OBST (8) Hypercholesterolemia Code(s): E78.00 - PURE HYPERCHOLESTEROLEMIA, UNSPECIFIED patient already has been on levaquin and flagyl plan will stop abx tomorrow continue current mgmt rest as per primary team dialysis as per renal
--- NOTE | 2017-08-26 17:46 | PN ---
Progress Note, Physician History of Present Illness: Pt seen and examined at bedside. He tolerated HD. He denies shortness of breath. He complains of lower extremity edema. - Current Medication List Current Medications: Active Medications Acetaminophen (Ofirmev Injection -) 1,000 mg IVPB Q6H PRN PRN Reason: FEVER OR PAIN Albuterol Sulfate (Ventolin Hfa Inhaler -) 1 puff IH Q6H PRN PRN Reason: SHORT OF BREATH/WHEEZING Atorvastatin Calcium (Lipitor -) 20 mg PO HS [facility] Last Admin: 08/25/17 21:18 Dose: 20 mg Budesonide/Formoterol Fumarate (Symbicort 160/4.5mcg -) 1 puff IH DAILY [facility] Last Admin: 08/26/17 13:26 Dose: 1 puff Calcium Carbonate (Calcium Carb Oral Suspension -) 500 mg PO DAILY [facility] Last Admin: 08/26/17 13:24 Dose: 500 mg Carvedilol (Coreg -) 12.5 mg PO BID [facility] Last Admin: 08/26/17 13:23 Dose: 12.5 mg Fentanyl (Sublimaze Injection -) 50 mcg IVPUSH [id number] PRN PRN Reason: PAIN Fluticasone Propionate (Flonase -) 1 spray NS BID [facility] Last Admin: 08/26/17 13:25 Dose: 1 spray Hydromorphone HCl (Dilaudid Injection -) 1 mg IVPUSH Q4H PRN PRN Reason: PAIN Lactated Ringer's (Lactated Ringers Solution) 1,000 mls @ 125 mls/hr IV ASDIR [facility] Last Admin: 08/25/17 20:03 Dose: Not Given Piperacillin/Tazobactam/Dextrose (Zosyn 2.25gm Ivpb (Premix)) 2.25 gm in 50 mls @ 100 mls/hr IVPB Q8H-IV [facility] Last Admin: 08/26/17 13:20 Dose: 100 mls/hr Montelukast Sodium (Singulair -) 10 mg PO HS [facility] Last Admin: 08/25/17 21:19 Dose: 10 mg Ondansetron HCl (Zofran Injection) 4 mg IVPUSH Q4H PRN PRN Reason: NAUSEA AND/OR VOMITING Ondansetron HCl (Zofran Injection) 4 mg IVPUSH Q6H PRN PRN Reason: NAUSEA AND/OR VOMITING Pancrelipase ([place] 36,000 Units Capsule) 1 cap PO TIDCM [facility] Last Admin: 08/26/17 17:35 Dose: 1 cap Pantoprazole Sodium (Protonix Iv) 40 mg IVPUSH DAILY [facility] Last Admin: 08/26/17 13:48 Dose: 40 mg Promethazine HCl (Phenergan Injection -) 12.5 mg IVPB Q6H PRN PRN Reason: NAUSEA-FOR RESCUE AFTER 15 MIN Saliva Substitute (Mouthkote Solution -) 1 applic MM DAILY [facility] Last Admin: 08/26/17 13:36 Dose: 1 applic Tamsulosin HCl (Flomax -) 0.4 mg PO HS [facility] Last Admin: 08/25/17 21:18 Dose: 0.4 mg Tiotropium [place] (Spiriva -) 1 puff IH DAILY [facility] Last Admin: 08/26/17 13:22 Dose: 1 puff Trazodone HCl (Desyrel -) 100 mg PO HS [facility] Last Admin: 08/25/17 21:18 Dose: 100 mg Zolpidem Tartrate (Ambien -) 5 mg PO HS PRN PRN Reason: INSOMNIA Last Admin: 08/25/17 22:15 Dose: 5 mg - Objective Vital Signs: Vital Signs Temperature 97.5 F L 08/26/17 15:02 Pulse Rate 69 08/26/17 15:02 Respiratory Rate 18 08/26/17 15:02 Blood Pressure 102/68 08/26/17 15:02 O2 Sat by Pulse Oximetry (%) 97 08/26/17 09:00 Constitutional: Yes: Calm Eyes: Yes: Conjunctiva Clear HENT: Yes: Atraumatic Neck: Yes: Supple Cardiovascular: Yes: S1, S2 Respiratory: Yes: Rhonchi Gastrointestinal: Yes: Soft Genitourinary: Yes: WNL Extremities: Yes: WNL Edema: Yes Edema: LLE: 1+, RLE: 1+ Neurological: Yes: Oriented Psychiatric: Yes: Oriented Labs: CBC, BMP 08/26/17 10:00 08/26/17 10:00 INR, PTT INR 1.32 (0.82-1.09) H 08/12/17 07:45 Problem List - Problems (1) CKD (chronic kidney disease) Code(s): N18.9 - CHRONIC KIDNEY DISEASE, UNSPECIFIED Qualifiers: Chronic kidney disease stage: stage 4 (severe) Qualified Code(s): N18.4 - Chronic kidney disease, stage 4 (severe) (2) Anemia Code(s): D64.9 - ANEMIA, UNSPECIFIED Qualifiers: Anemia type: unspecified type Qualified Code(s): D64.9 - Anemia, unspecified (3) Abdominal pain Code(s): R10.9 - UNSPECIFIED ABDOMINAL PAIN Qualifiers: Abdominal location: unspecified location Qualified Code(s): R10.9 - Unspecified abdominal pain (4) Rectal bleeding Code(s): K62.5 - HEMORRHAGE OF ANUS AND RECTUM (5) Acute exacerbation of COPD with asthma Code(s): J44.1 - CHRONIC OBSTRUCTIVE PULMONARY DISEASE W (ACUTE) EXACERBATION; J45.901 - UNSPECIFIED ASTHMA WITH (ACUTE) EXACERBATION (6) CHF (congestive heart failure) Code(s): I50.9 - HEART FAILURE, UNSPECIFIED Qualifiers: Congestive heart failure type: combined Congestive heart failure chronicity : acute on chronic Qualified Code(s): I50.43 - Acute on chronic combined systolic (congestive) and diastolic (congestive) heart failure Assessment/Plan Current Medications Generic Name Dose Route Start Last Admin Trade Name Freq PRN Reason Stop Dose Admin Acetaminophen 1,000 mg 08/25/17 17:58 Ofirmev Injection - IVPB Q6H PRN FEVER OR PAIN Albuterol Sulfate 1 puff 08/25/17 17:58 Ventolin Hfa Inhaler - IH Q6H PRN SHORT OF BREATH/WHEEZING Atorvastatin Calcium 20 mg 08/25/17 22:00 08/25/17 21:18 Lipitor - PO 20 mg HS [facility] Administration Budesonide/Formoterol Fumarate 1 puff 08/26/17 10:00 08/26/17 13:26 Symbicort 160/4.5mcg - IH 1 puff DAILY [facility] Administration Calcium Carbonate 500 mg 08/26/17 10:00 08/26/17 13:24 Calcium Carb Oral Suspension - PO 500 mg DAILY [facility] Administration Carvedilol 12.5 mg 08/25/17 22:00 08/26/17 13:23 Coreg - PO 12.5 mg BID [facility] Administration Fluticasone Propionate 1 spray 08/25/17 22:00 08/26/17 13:25 Flonase - NS 1 spray BID [facility] Administration Hydromorphone HCl 1 mg 08/26/17 17:41 Dilaudid Injection - IVPUSH Q4H PRN PAIN Lactated Ringer's 1,000 mls @ 125 mls/hr 08/25/17 17:58 08/25/17 20:03 Lactated Ringers Solution IV Not Given ASDIR [facility] Piperacillin/Tazobactam/Dextrose 2.25 gm in 50 mls @ 100 mls/hr 08/25/17 18: 00 08/26/17 13:20 Zosyn 2.25gm Ivpb (Premix) IVPB 100 mls/hr Q8H-IV [facility] Administration Montelukast Sodium 10 mg 08/25/17 22:00 08/25/17 21:19 Singulair - PO 10 mg HS [facility] Administration Ondansetron HCl 4 mg 08/25/17 17:58 Zofran Injection IVPUSH Q4H PRN NAUSEA AND/OR VOMITING Ondansetron HCl 4 mg 08/25/17 17:58 Zofran Injection IVPUSH Q6H PRN NAUSEA AND/OR VOMITING Pancrelipase 1 cap 08/26/17 08:00 08/26/17 17:[address] 36,000 Units Capsule PO 1 cap TIDCM [facility] Administration Pantoprazole Sodium 40 mg 08/26/17 10:00 08/26/17 13:48 Protonix Iv IVPUSH 40 mg DAILY [facility] Administration Promethazine HCl 12.5 mg 08/25/17 17:58 Phenergan Injection - IVPB Q6H PRN NAUSEA-FOR RESCUE AFTER 15 MIN Saliva Substitute 1 applic 08/26/17 10:00 08/26/17 13:36 Mouthkote Solution - MM 1 applic DAILY [facility] Administration Tamsulosin HCl 0.4 mg 08/25/17 22:00 08/25/17 21:18 Flomax - PO 0.4 mg HS [facility] Administration Tiotropium [place] 1 puff 08/26/17 10:00 08/26/17 13:22 Spiriva - IH 1 puff DAILY [facility] Administration Trazodone HCl 100 mg 08/25/17 22:00 08/25/17 21:18 Desyrel - PO 100 mg HS [facility] Administration Zolpidem Tartrate 5 mg 08/25/17 22:04 08/25/17 22:15 Ambien - PO 5 mg HS PRN Administration INSOMNIA Laboratory Tests 08/26/17 08:30 Hep Bs Antigen Pending Hep Bs Antibody Pending Hep B Core Total Ab Pending Hepatitis C Antibody Pending Impression 1. ESRD 2. ALAN 3. anemia 4. GI bleed 5. BPH 6. a-fib 7. aortic aneurysm 8. COPD 9. insomnia 10. SBO Plan - pt tolerated HD today - will arrange for HD again in am - will UF more volume tomorrow - replace potassium - check am labs - epogen for anemia - check iron studies - follow up hep panel - will likely restart ARB next week - will follow closely Dr Ortega
[2017-08-26] MEDS: HYDROmorphone HCL CARPU-JECT 2 MG/1 ML DISP.SYRIN IVPUSH PRN (17:55)
[2017-08-26] MEDS: LACTATED RINGERS SOLUTION 1,000 ML IV SCH (18:07)
[2017-08-26] MEDS: TAMSULOSIN HCL 0.4 MG CAP.ER.24H (FP) PO SCH (21:09)
[2017-08-26] MEDS: MONTELUKAST NA 10 MG TABLET PO SCH (21:09)
[2017-08-26] MEDS: ATORVASTATIN CA 20 MG TABLET (FP) PO SCH (21:09)
[2017-08-26] MEDS: ZOLPIDEM TARTRATE 5 MG TABLET PO PRN (21:09)
[2017-08-26] MEDS: traZODone HCL 50 MG TABLET (FP) PO SCH (21:09)
[2017-08-27] MEDS ORDERED: PT OWN MED DRAWER 7, Y5N ONE ×7 (01:08→22:04)
[2017-08-27] MEDS: PIPERACILLIN/TAZOB 2.25 GM 2.25 GM/50 ML BAG IVPB SCH ×2 (01:16→11:00)
[2017-08-27 06:11] LABS: HBSAG SCREEN Negative (Negative); HEP B CORE AB, TOT Negative (Negative)
--- NOTE | 2017-08-27 07:38 | PN ---
Progress Note, Physician Chief Complaint: small bowel obstruction History of Present Illness: 71 yo male with a MMP with history of intermittent constipation. Patient states he had a colonoscopy 5 years previous which was normal. CTscan on 08/17 shows distended stomach and small bowel, contrast was very proximal. Only previous abdominal surgery was an open appendectomy. abdominal pain is mostly resolved, having flatus and bowel movements. Tolerated renal diet. - Current Medication List Current Medications: Active Medications Acetaminophen (Ofirmev Injection -) 1,000 mg IVPB Q6H PRN PRN Reason: FEVER OR PAIN Albuterol Sulfate (Ventolin Hfa Inhaler -) 1 puff IH Q6H PRN PRN Reason: SHORT OF BREATH/WHEEZING Atorvastatin Calcium (Lipitor -) 20 mg PO HS [facility] Last Admin: 08/26/17 21:09 Dose: 20 mg Budesonide/Formoterol Fumarate (Symbicort 160/4.5mcg -) 1 puff IH DAILY [facility] Last Admin: 08/26/17 13:26 Dose: 1 puff Calcium Carbonate (Calcium Carb Oral Suspension -) 500 mg PO DAILY [facility] Last Admin: 08/26/17 13:24 Dose: 500 mg Carvedilol (Coreg -) 12.5 mg PO BID [facility] Last Admin: 08/26/17 21:09 Dose: 12.5 mg Epoetin Anshu (Epogen -) 3,000 units IVPUSH ONCE ONE Stop: 08/27/17 17:47 Fluticasone Propionate (Flonase -) 1 spray NS BID [facility] Last Admin: 08/26/17 21:10 Dose: 1 spray Hydromorphone HCl (Dilaudid Injection -) 1 mg IVPUSH Q4H PRN PRN Reason: PAIN Last Admin: 08/26/17 17:55 Dose: 1 mg Lactated Ringer's (Lactated Ringers Solution) 1,000 mls @ 125 mls/hr IV ASDIR [facility] Last Admin: 08/26/17 18:07 Dose: Not Given Piperacillin/Tazobactam/Dextrose (Zosyn 2.25gm Ivpb (Premix)) 2.25 gm in 50 mls @ 100 mls/hr IVPB Q8H-IV [facility] Last Admin: 08/27/17 01:16 Dose: 100 mls/hr Montelukast Sodium (Singulair -) 10 mg PO HS [facility] Last Admin: 08/26/17 21:09 Dose: 10 mg Ondansetron HCl (Zofran Injection) 4 mg IVPUSH Q4H PRN PRN Reason: NAUSEA AND/OR VOMITING Ondansetron HCl (Zofran Injection) 4 mg IVPUSH Q6H PRN PRN Reason: NAUSEA AND/OR VOMITING Pancrelipase (Creon Dr 36,000 Units Capsule) 1 cap PO TIDCM [facility] Last Admin: 08/26/17 17:35 Dose: 1 cap Pantoprazole Sodium (Protonix Iv) 40 mg IVPUSH DAILY [facility] Last Admin: 08/26/17 13:48 Dose: 40 mg Promethazine HCl (Phenergan Injection -) 12.5 mg IVPB Q6H PRN PRN Reason: NAUSEA-FOR RESCUE AFTER 15 MIN Saliva Substitute (Mouthkote Solution -) 1 applic MM DAILY [facility] Last Admin: 08/26/17 13:36 Dose: 1 applic Tamsulosin HCl (Flomax -) 0.4 mg PO [facility] Last Admin: 08/26/17 21:09 Dose: 0.4 mg Tiotropium [place] (Spiriva -) 1 puff IH DAILY [facility] Last Admin: 08/26/17 13:22 Dose: 1 puff Trazodone HCl (Desyrel -) 100 mg PO HS [facility] Last Admin: 08/26/17 21:09 Dose: 100 mg Zolpidem Tartrate (Ambien -) 5 mg PO HS PRN PRN Reason: INSOMNIA Last Admin: 08/26/17 21:09 Dose: 5 mg - Objective Vital Signs: Vital Signs Temperature 98.1 F 08/27/17 05:58 Pulse Rate 60 08/27/17 05:58 Respiratory Rate 20 08/27/17 05:58 Blood Pressure 114/61 08/27/17 05:58 O2 Sat by Pulse Oximetry (%) 97 08/26/17 21:00 Vital Signs Period Temp Pulse Resp BP Sys/Whitaker Pulse Ox Last 24 Hr 97.5 F-98.4 F 59-82 18-20 101-122/51-69 97-97 Constitutional: Yes: No Distress, Calm, Obese Eyes: Yes: Conjunctiva Clear, EOM Intact HENT: Yes: Atraumatic, Normocephalic Neck: Yes: Supple, Trachea Midline Cardiovascular: Yes: Regular Rate and Rhythm, S1 Respiratory: Yes: Regular, CTA Bilaterally Gastrointestinal: Yes: Normal Bowel Sounds, Soft, Tenderness. No: Tenderness, Epigastrium, Tenderness, Rebound Neurological: Yes: Alert, Oriented Psychiatric: Yes: Alert, Oriented Labs: CBC, BMP 08/26/17 10:00 08/26/17 10:00 INR, PTT INR 1.32 (0.82-1.09) H 08/12/17 07:45 Problem List - Problems (1) SBO (small bowel obstruction) Assessment/Plan: 71yo male MMP presents with a partial SBO, h/o appendectomy, recent normal colonoscopy, more likely paralytics ileus which appeared to be resolving last night but is worse today. (He has cups of water from the bathroom). NGT discontinued yesterday no vomiting, however abdominal distension is worse on exam. WBC is normal. resolving partial SBO versus ileus. Tolerating clears GI fuction is reported as more normal and regular. advance diet as tolerated - agree with renal diet consider stool softener encourage ambulation resume oral cardiac medication will follow peripherally He does not require follow-up with general surgery upon discharge Code(s): K56.609 - UNSP INTESTNL OBST, UNSP TO PARTIAL VERSUS COMPLETE OBST (2) Abdominal pain Code(s): R10.9 - UNSPECIFIED ABDOMINAL PAIN Qualifiers: Abdominal location: unspecified location Qualified Code(s): R10.9 - Unspecified abdominal pain (3) Ileus, unspecified Code(s): K56.7 - ILEUS, UNSPECIFIED (4) Acute diverticulitis Code(s): K57.92 - DVTRCLI OF INTEST, PART UNSP, W/O PERF OR ABSCESS W/O BLEED (5) Anemia Code(s): D64.9 - ANEMIA, UNSPECIFIED Qualifiers: Anemia type: unspecified type Qualified Code(s): D64.9 - Anemia, unspecified (6) Hypercholesterolemia Code(s): E78.00 - PURE HYPERCHOLESTEROLEMIA, UNSPECIFIED (7) CHF Congestive heart failure Code(s): I50.9 - HEART FAILURE, UNSPECIFIED
[2017-08-27] MEDS: LIPASE/PROTEASE/AMYLASE 36,000 UNIT CAPSULE PO SCH ×3 (08:26→17:19)
[2017-08-27] MEDS: HYDROmorphone HCL CARPU-JECT 2 MG/1 ML DISP.SYRIN IVPUSH PRN ×2 (08:59→13:49)
--- NOTE | 2017-08-27 09:20 | OP ---
DATE OF OPERATION: 08/25/2017 PREOPERATIVE DIAGNOSIS: End-stage renal disease. POSTOPERATIVE DIAGNOSIS: End-stage renal disease. PROCEDURE: Insertion of PermCath. SURGEON: Lasha Farmer DO ANESTHESIA: Fractional. BLOOD LOSS: 10 mL INDICATION FOR PROCEDURE: The patient is a 71-year-old male who comes in with acute renal failure and needs temporary dialysis catheter placement. We decided he would need a PermCath. Patient was consented for the procedure, understanding all risks, benefits, and alternatives, then taken to the operating room. DESCRIPTION OF PROCEDURE: Once in the operating room, he was laid on the operating table in supine manner. The area of the right neck and chest were prepped and draped in a sterile surgical manner. We then injected 10 mL of lidocaine 1% below the right clavicle. We then went ahead and used our micropuncture needle and punctured the right subclavian vein. Micropuncture wire was inserted. Micropuncture sheath was inserted, and 0.035 floppy guidewire was inserted under fluoroscopy. We then went ahead and injected another 10 mL of lidocaine 1% below the clavicle, and using a 15 blade, we made a 1-cm incision about 2 cm away from our puncture site. We then went ahead and took an 11 blade and made a 1-cm incision at the puncture site. We then tunneled our PermCath up to the puncture site. We then placed our breakaway sheath over the guidewire into the vein under fluoroscopy, and the cannula and guidewire were removed. Catheter was placed inside the sheath. Sheath was broken away as the catheter was placed inside the vein. Neck of the catheter was nice and smooth. Tip of the catheter was located outside the right atrium. We then danny back on each port of the catheter, and there was good flow. Heparinized saline was injected, and 2000 units of IV heparin were injected into each port. We then went ahead and used 4-0 Biosyn, and 2 simple stitches were placed at the puncture site; 3-0 nylon used. The catheter was attached to the skin. Biopatch, Steri-Strips, 4 x 4, and Tegaderm were placed. The patient tolerated the procedure with no complications. Patient transferred to the PACU in stable condition, where chest x-ray will be ordered. LASHA FARMER DO [employer]/[id number]
--- NOTE | 2017-08-27 10:51 | PN ---
Progress Note (short form) - Note Progress Note: Feels OK. No CP or SOB. For HD. Intake & Output 08/24/17 08/25/17 08/26/17 08/27/17 23:59 23:59 23:59 23:59 Intake Total 846 680 350 50 Output Total 350 375 200 Balance 496 305 150 50 Weight 181 lb 180 lb 4 oz 182 lb 6 oz 182 lb Last Vital Signs Temp Pulse Resp BP Pulse Ox 97.4 F L 61 18 128/67 98 08/27/17 09:55 08/27/17 10:30 08/27/17 10:30 08/27/17 10:30 08/27/17 08:28 Active Medications Acetaminophen (Ofirmev Injection -) 1,000 mg IVPB Q6H PRN PRN Reason: FEVER OR PAIN Albuterol Sulfate (Ventolin Hfa Inhaler -) 1 puff IH Q6H PRN PRN Reason: SHORT OF BREATH/WHEEZING Atorvastatin Calcium (Lipitor -) 20 mg PO HS [facility] Last Admin: 08/26/17 21:09 Dose: 20 mg Budesonide/Formoterol Fumarate (Symbicort 160/4.5mcg -) 1 puff IH DAILY [facility] Last Admin: 08/26/17 13:26 Dose: 1 puff Calcium Carbonate (Calcium Carb Oral Suspension -) 500 mg PO DAILY [facility] Last Admin: 08/26/17 13:24 Dose: 500 mg Carvedilol (Coreg -) 12.5 mg PO BID [facility] Last Admin: 08/26/17 21:09 Dose: 12.5 mg Epoetin Anshu (Epogen -) 3,000 units IVPUSH ONCE ONE Stop: 08/27/17 17:47 Fluticasone Propionate (Flonase -) 1 spray NS BID [facility] Last Admin: 08/26/17 21:10 Dose: 1 spray Hydromorphone HCl (Dilaudid Injection -) 1 mg IVPUSH Q4H PRN PRN Reason: PAIN Last Admin: 08/27/17 08:59 Dose: 1 mg Lactated Ringer's (Lactated Ringers Solution) 1,000 mls @ 125 mls/hr IV ASDIR [facility] Last Admin: 08/26/17 18:07 Dose: Not Given Piperacillin/Tazobactam/Dextrose (Zosyn 2.25gm Ivpb (Premix)) 2.25 gm in 50 mls @ 100 mls/hr IVPB Q8H-IV [facility] Last Admin: 08/27/17 01:16 Dose: 100 mls/hr Montelukast Sodium (Singulair -) 10 mg PO HS [facility] Last Admin: 08/26/17 21:09 Dose: 10 mg Ondansetron HCl (Zofran Injection) 4 mg IVPUSH Q4H PRN PRN Reason: NAUSEA AND/OR VOMITING Ondansetron HCl (Zofran Injection) 4 mg IVPUSH Q6H PRN PRN Reason: NAUSEA AND/OR VOMITING Pancrelipase (Creon Dr 36,000 Units Capsule) 1 cap PO TIDCM [facility] Last Admin: 08/27/17 08:26 Dose: 1 cap Pantoprazole Sodium (Protonix Iv) 40 mg IVPUSH DAILY [facility] Last Admin: 08/26/17 13:48 Dose: 40 mg Promethazine HCl (Phenergan Injection -) 12.5 mg IVPB Q6H PRN PRN Reason: NAUSEA-FOR RESCUE AFTER 15 MIN Saliva Substitute (Mouthkote Solution -) 1 applic MM DAILY [facility] Last Admin: 08/26/17 13:36 Dose: 1 applic Tamsulosin HCl (Flomax -) 0.4 mg PO [facility] Last Admin: 08/26/17 21:09 Dose: 0.4 mg Tiotropium [place] (Spiriva -) 1 puff IH DAILY [facility] Last Admin: 08/26/17 13:22 Dose: 1 puff Trazodone HCl (Desyrel -) 100 mg PO [facility] Last Admin: 08/26/17 21:09 Dose: 100 mg Zolpidem Tartrate (Ambien -) 5 mg PO HS PRN PRN Reason: INSOMNIA Last Admin: 08/26/17 21:09 Dose: 5 mg Constitutional: Yes: No Distress Neck: Yes: Supple Cardiovascular: Yes: Regular Rate and Rhythm Respiratory: Yes: Diminished at the bases Gastrointestinal: Yes: Soft, Distention, (+) Bowel Sounds Edema: Yes Edema: LLE: 1+, RLE: 1+ Labs: Laboratory Results - last 24 hr 08/26/17 08/26/17 08/26/17 08:30 10:00 10:00 WBC 10.3 H RBC 2.92 L Hgb 8.5 L D Hct 26.1 L MCV 89.2 MCH 29.0 MCHC 32.5 RDW 15.2 Plt Count 152 MPV 7.9 Neutrophils % 90.0 H Lymphocytes % 3.0 L D Monocytes % 6.2 Eosinophils % 0.6 Basophils % 0.2 Sodium 143 Potassium 3.0 L Chloride 108 H Carbon Dioxide 25 D Anion Gap 10 BUN 55 H D Creatinine 4.5 H D Creat Clearance w eGFR 12.95 Random Glucose 115 H D Calcium 7.5 L Phosphorus 3.1 D Magnesium 2.0 Total Bilirubin 0.3 D AST 13 L ALT 11 L Alkaline Phosphatase 57 Total Protein 4.8 L Albumin 2.0 L Hepatitis A Ab Total Negative Hep Bs Antigen Negative Hep Bs Antibody Non reactive Hep B Core Total Ab Negative Hepatitis C Antibody 0.2 Problem List - Problems (1) Anemia Code(s): D64.9 - ANEMIA, UNSPECIFIED Qualifiers: Anemia type: unspecified type Qualified Code(s): D64.9 - Anemia, unspecified (2) CVD (cerebrovascular disease) Code(s): I67.9 - CEREBROVASCULAR DISEASE, UNSPECIFIED (3) Hx of CABG Code(s): Z95.1 - PRESENCE OF AORTOCORONARY BYPASS GRAFT (4) Hypercholesterolemia Code(s): E78.00 - PURE HYPERCHOLESTEROLEMIA, UNSPECIFIED (5) Presence of permanent cardiac pacemaker Code(s): Z95.0 - PRESENCE OF CARDIAC PACEMAKER (6) Sick sinus syndrome Code(s): I49.5 - SICK SINUS SYNDROME (7) CHF Congestive heart failure Code(s): I50.9 - HEART FAILURE, UNSPECIFIED (8) Abdominal aortic aneurysm (AAA) Code(s): I71.4 - ABDOMINAL AORTIC ANEURYSM, WITHOUT RUPTURE Qualifiers: Presence of rupture: without rupture Qualified Code(s): I71.4 - Abdominal aortic aneurysm, without rupture (9) Ischemic colitis Code(s): K55.9 - VASCULAR DISORDER OF INTESTINE, UNSPECIFIED (10) Rectal bleeding Code(s): K62.5 - HEMORRHAGE OF ANUS AND RECTUM (11) [id number] kidney injury Code(s): N17.9 - ACUTE KIDNEY FAILURE, UNSPECIFIED; N18.9 - CHRONIC KIDNEY DISEASE, UNSPECIFIED Qualifiers: Acute renal failure type: unspecified Chronic kidney disease stage: stage 4 (severe) Qualified Code(s): N17.9 - Acute kidney failure, unspecified; N18.4 - Chronic kidney disease, stage 4 (severe); N18.4 - Chronic kidney disease , stage 4 (severe); N18.4 - Chronic kidney disease, stage 4 (severe); N18.4 - Chronic kidney disease, stage 4 (severe) PLAN: HD per Renal PO as tolerated O2 as needed Pain control Incentive Spirometry VTE prophylaxis Normal transfusion thresholds TAA/AAA surveillance Dr Cordero
[2017-08-27] MEDS ORDERED: EPOETIN ALFA 3,000 UNIT/1 ML ML IVPUSH ONE (11:00)
[2017-08-27 11:07] LABS: ANION GAP 10 (8-16); BLOOD UREA NITROGEN 54 mg/dL (7-18); CALCIUM 7.2 mg/dL (8.5-10.1); CHLORIDE 107 mmol/L (98-107); CO2 23 mmol/L (21-32); CREATININE 5.7 mg/dL (0.7-1.3); GLUCOSE,RANDOM 153 mg/dL (74-106); POTASSIUM 3.3 mmol/L (3.5-5.1); SODIUM 140 mmol/L (136-145)
--- NOTE | 2017-08-27 11:24 | PN ---
Progress Note, Physician History of Present Illness: stable abd much better softer had dialysis feels tired - Current Medication List Current Medications: Active Medications Acetaminophen (Ofirmev Injection -) 1,000 mg IVPB Q6H PRN PRN Reason: FEVER OR PAIN Albuterol Sulfate (Ventolin Hfa Inhaler -) 1 puff IH Q6H PRN PRN Reason: SHORT OF BREATH/WHEEZING Atorvastatin Calcium (Lipitor -) 20 mg PO HS [facility] Last Admin: 08/26/17 21:09 Dose: 20 mg Budesonide/Formoterol Fumarate (Symbicort 160/4.5mcg -) 1 puff IH DAILY [facility] Last Admin: 08/26/17 13:26 Dose: 1 puff Calcium Carbonate (Calcium Carb Oral Suspension -) 500 mg PO DAILY [facility] Last Admin: 08/26/17 13:24 Dose: 500 mg Carvedilol (Coreg -) 12.5 mg PO BID [facility] Last Admin: 08/26/17 21:09 Dose: 12.5 mg Fluticasone Propionate (Flonase -) 1 spray NS BID [facility] Last Admin: 08/26/17 21:10 Dose: 1 spray Hydromorphone HCl (Dilaudid Injection -) 1 mg IVPUSH Q4H PRN PRN Reason: PAIN Last Admin: 08/27/17 08:59 Dose: 1 mg Lactated Ringer's (Lactated Ringers Solution) 1,000 mls @ 125 mls/hr IV ASDIR [facility] Last Admin: 08/26/17 18:07 Dose: Not Given Montelukast Sodium (Singulair -) 10 mg PO [facility] Last Admin: 08/26/17 21:09 Dose: 10 mg Ondansetron HCl (Zofran Injection) 4 mg IVPUSH Q4H PRN PRN Reason: NAUSEA AND/OR VOMITING Ondansetron HCl (Zofran Injection) 4 mg IVPUSH Q6H PRN PRN Reason: NAUSEA AND/OR VOMITING Pancrelipase (Creon Dr 36,000 Units Capsule) 1 cap PO TIDCM [facility] Last Admin: 08/27/17 08:26 Dose: 1 cap Pantoprazole Sodium (Protonix Iv) 40 mg IVPUSH DAILY [facility] Last Admin: 08/26/17 13:48 Dose: 40 mg Promethazine HCl (Phenergan Injection -) 12.5 mg IVPB Q6H PRN PRN Reason: NAUSEA-FOR RESCUE AFTER 15 MIN Saliva Substitute (Mouthkote Solution -) 1 applic MM DAILY [facility] Last Admin: 08/26/17 13:36 Dose: 1 applic Tamsulosin HCl (Flomax -) 0.4 mg PO HS [facility] Last Admin: 08/26/17 21:09 Dose: 0.4 mg Tiotropium [place] (Spiriva -) 1 puff IH DAILY [facility] Last Admin: 08/26/17 13:22 Dose: 1 puff Trazodone HCl (Desyrel -) 100 mg PO HS [facility] Last Admin: 08/26/17 21:09 Dose: 100 mg Zolpidem Tartrate (Ambien -) 5 mg PO HS PRN PRN Reason: INSOMNIA Last Admin: 08/26/17 21:09 Dose: 5 mg - Objective Vital Signs: Vital Signs Temperature 97.4 F L 08/27/17 09:55 Pulse Rate 69 08/27/17 11:00 Respiratory Rate 18 08/27/17 11:00 Blood Pressure 127/65 08/27/17 11:00 O2 Sat by Pulse Oximetry (%) 98 08/27/17 08:28 Constitutional: Yes: No Distress, Calm Cardiovascular: Yes: Regular Rate and Rhythm Respiratory: Yes: Regular, CTA Bilaterally Gastrointestinal: Yes: Normal Bowel Sounds, Soft Musculoskeletal: Yes: WNL Extremities: Yes: WNL Neurological: Yes: Alert, Oriented Psychiatric: Yes: Alert, Oriented Labs: CBC, BMP 08/26/17 10:00 08/27/17 10:00 INR, PTT INR 1.32 (0.82-1.09) H 08/12/17 07:45 Assessment/Plan Problem List - Problems (1) Rectal bleeding Assessment/Plan: resolved Code(s): K62.5 - HEMORRHAGE OF ANUS AND RECTUM (2) CHF (congestive heart failure) Assessment/Plan: stable no sob Code(s): I50.9 - HEART FAILURE, UNSPECIFIED Qualifiers: Congestive heart failure type: combined Congestive heart failure chronicity : acute on chronic Qualified Code(s): I50.43 - Acute on chronic combined systolic (congestive) and diastolic (congestive) heart failure (3) Acute diverticulitis Assessment/Plan: on iv abx id on board Code(s): K57.92 - DVTRCLI OF INTEST, PART UNSP, W/O PERF OR ABSCESS W/O BLEED (4) Anemia Assessment/Plan: monitor s/p prbc transfusion Code(s): D64.9 - ANEMIA, UNSPECIFIED Qualifiers: Anemia type: unspecified type Qualified Code(s): D64.9 - Anemia, unspecified (5) CKD (chronic kidney disease) Assessment/Plan: monitor...cr LITTLE BETTER on ivf...NEED FOR HD renal on board Code(s): N18.9 - CHRONIC KIDNEY DISEASE, UNSPECIFIED Qualifiers: Chronic kidney disease stage: stage 4 (severe) Qualified Code(s): N18.4 - Chronic kidney disease, stage 4 (severe) (6) CHF Congestive heart failure Code(s): I50.9 - HEART FAILURE, UNSPECIFIED (7) SBO (small bowel obstruction) Assessment/Plan: npo, ivf.. iv pain meds ngt in place as xray was worse today Code(s): K56.609 - UNSP INTESTNL OBST, UNSP TO PARTIAL VERSUS COMPLETE OBST (8) Hypercholesterolemia Code(s): E78.00 - PURE HYPERCHOLESTEROLEMIA, UNSPECIFIED patient already has been on levaquin and flagyl plan stopped abx tolerated dialysis continue monitoring rest as per primary team
--- NOTE | 2017-08-27 12:53 | PN ---
Progress Note, Physician Chief Complaint: Events noted. Patient was seen in HD Feels better History of Present Illness: Patient was seen and examined. Awake and alert. Chart was reviewed Denies chest pain, SOB or palpitation Pedal edema slightly improved Tolerating HD - Current Medication List Current Medications: Active Medications Acetaminophen (Ofirmev Injection -) 1,000 mg IVPB Q6H PRN PRN Reason: FEVER OR PAIN Albuterol Sulfate (Ventolin Hfa Inhaler -) 1 puff IH Q6H PRN PRN Reason: SHORT OF BREATH/WHEEZING Atorvastatin Calcium (Lipitor -) 20 mg PO HS [facility] Last Admin: 08/26/17 21:09 Dose: 20 mg Budesonide/Formoterol Fumarate (Symbicort 160/4.5mcg -) 1 puff IH DAILY [facility] Last Admin: 08/26/17 13:26 Dose: 1 puff Calcium Carbonate (Calcium Carb Oral Suspension -) 500 mg PO DAILY [facility] Last Admin: 08/26/17 13:24 Dose: 500 mg Carvedilol (Coreg -) 12.5 mg PO BID [facility] Last Admin: 08/26/17 21:09 Dose: 12.5 mg Fluticasone Propionate (Flonase -) 1 spray NS BID [facility] Last Admin: 08/26/17 21:10 Dose: 1 spray Hydromorphone HCl (Dilaudid Injection -) 1 mg IVPUSH Q4H PRN PRN Reason: PAIN Last Admin: 08/27/17 08:59 Dose: 1 mg Lactated Ringer's (Lactated Ringers Solution) 1,000 mls @ 125 mls/hr IV ASDIR [facility] Last Admin: 08/26/17 18:07 Dose: Not Given Montelukast Sodium (Singulair -) 10 mg PO HS [facility] Last Admin: 08/26/17 21:09 Dose: 10 mg Ondansetron HCl (Zofran Injection) 4 mg IVPUSH Q4H PRN PRN Reason: NAUSEA AND/OR VOMITING Ondansetron HCl (Zofran Injection) 4 mg IVPUSH Q6H PRN PRN Reason: NAUSEA AND/OR VOMITING Pancrelipase (Creon Dr 36,000 Units Capsule) 1 cap PO TIDCM [facility] Last Admin: 08/27/17 08:26 Dose: 1 cap Pantoprazole Sodium (Protonix Iv) 40 mg IVPUSH DAILY [facility] Last Admin: 08/26/17 13:48 Dose: 40 mg Promethazine HCl (Phenergan Injection -) 12.5 mg IVPB Q6H PRN PRN Reason: NAUSEA-FOR RESCUE AFTER 15 MIN Saliva Substitute (Mouthkote Solution -) 1 applic MM DAILY [facility] Last Admin: 08/26/17 13:36 Dose: 1 applic Tamsulosin HCl (Flomax -) 0.4 mg PO HS [facility] Last Admin: 08/26/17 21:09 Dose: 0.4 mg Tiotropium [place] (Spiriva -) 1 puff IH DAILY [facility] Last Admin: 08/26/17 13:22 Dose: 1 puff Trazodone HCl (Desyrel -) 100 mg PO HS [facility] Last Admin: 08/26/17 21:09 Dose: 100 mg Zolpidem Tartrate (Ambien -) 5 mg PO HS PRN PRN Reason: INSOMNIA Last Admin: 08/26/17 21:09 Dose: 5 mg - Objective Vital Signs: Vital Signs Temperature 97.4 F L 08/27/17 09:55 Pulse Rate 64 08/27/17 12:30 Respiratory Rate 18 08/27/17 12:30 Blood Pressure 113/65 08/27/17 12:30 O2 Sat by Pulse Oximetry (%) 98 08/27/17 08:28 Eyes: Yes: PERRL Neck: Yes: Supple Cardiovascular: Yes: Regular Rate and Rhythm, Murmur (SM), S1, S2 Respiratory: Yes: Diminished Gastrointestinal: Yes: Normal Bowel Sounds. No: Tenderness Edema: Yes Edema: LLE: 1+, RLE: 1+ Additional Findings/Remarks: - Review of Systems Constitutional: denies: Chills, Fever Cardiovascular: denies: Chest Pain, Palpitations, Shortness of Breath Respiratory: denies: Cough, Hemoptysis, Orthopnea, PND, SOB, SOB on Exertion Gastrointestinal: denies: Abdominal Pain, Diarrhea, Melena, Rectal Bleeding. denies: Constipation, Nausea, Vomiting Genitourinary: denies: Dysuria, Hematuria Musculoskeletal: denies: Joint Pain Neurological: denies: Dizziness, Headache, Seizure, Syncope Labs: CBC, BMP 08/26/17 10:00 08/27/17 10:00 Problem List - Problems (1) CVD (cerebrovascular disease) Code(s): I67.9 - CEREBROVASCULAR DISEASE, UNSPECIFIED (2) Hypercholesterolemia Code(s): E78.00 - PURE HYPERCHOLESTEROLEMIA, UNSPECIFIED (3) Sick sinus syndrome Code(s): I49.5 - SICK SINUS SYNDROME (4) Presence of permanent cardiac pacemaker Code(s): Z95.0 - PRESENCE OF CARDIAC PACEMAKER (5) Hx of CABG Code(s): Z95.1 - PRESENCE OF AORTOCORONARY BYPASS GRAFT (6) Abdominal pain Code(s): R10.9 - UNSPECIFIED ABDOMINAL PAIN Qualifiers: Abdominal location: unspecified location Qualified Code(s): R10.9 - Unspecified abdominal pain (7) Acute diverticulitis Code(s): K57.92 - DVTRCLI OF INTEST, PART UNSP, W/O PERF OR ABSCESS W/O BLEED (8) Anemia Code(s): D64.9 - ANEMIA, UNSPECIFIED Qualifiers: Anemia type: unspecified type Qualified Code(s): D64.9 - Anemia, unspecified (9) CKD (chronic kidney disease) Code(s): N18.9 - CHRONIC KIDNEY DISEASE, UNSPECIFIED Qualifiers: Chronic kidney disease stage: stage 4 (severe) Qualified Code(s): N18.4 - Chronic kidney disease, stage 4 (severe) (10) Rectal bleeding Code(s): K62.5 - HEMORRHAGE OF ANUS AND RECTUM (11) CHF (congestive heart failure) Code(s): I50.9 - HEART FAILURE, UNSPECIFIED Qualifiers: Congestive heart failure type: combined Congestive heart failure chronicity : acute on chronic Qualified Code(s): I50.43 - Acute on chronic combined systolic (congestive) and diastolic (congestive) heart failure (12) Partial small bowel obstruction Code(s): K56.600 - PARTIAL INTESTINAL OBSTRUCTION, UNSPECIFIED TO CAUSE Assessment/Plan 1. Rectal bleed, underlying diverticulitis with partial SBO with dilated small bowel loops -improved 2. CAD s/p CABG, angina pectoris 3. Persistent AF with underlying PPM for sick sinus syndrome 4. Acute on CKD now on HD 5. Hypercholesterolemia 6. CVA/TIA 7. COPD 8. TAA and AAA PLAN: 1. HD as per Renal 2.ARB once cleared by Renal service 3. Continue Carvedilol as tolerated 4. Continue Atorvastatin 5. Monitor CBC and transfuse PRBC as needed 6. TAA and AAA likely also needs surveillance probably not ready for intervention Further plans are to follow. Currently he is off Eliquis, but will need to resume once cleared Guarded Klever Marti MD
[2017-08-27] MEDS: PANTOPRAZOLE SODIUM 40 MG VIAL IVPUSH SCH (13:48)
[2017-08-27] MEDS: CALCIUM CARBONATE SUSPENSION - 500 MG/5 ML ML PO SCH (13:51)
[2017-08-27] MEDS: CARVEDILOL 12.5 MG TABLET (FP) PO SCH ×3 (13:52→22:06)
[2017-08-27] MEDS: TIOTROPIUM BROMIDE 18 MCG/INH (DEVICE W/ 5 CAPSULES) IH SCH (13:52)
[2017-08-27] MEDS: BUDESONIDE/FORMETEROL FUMARATE 160/4.5 mcg INHALER IH SCH (13:53)
[2017-08-27] MEDS: FLUTICASONE PROP 0.05% 16 GM NASAL SPRAY NS SCH ×2 (13:58→22:05)
[2017-08-27] MEDS: LYTES/YERBA SANTA 240 ML BOTTLE MM SCH (14:05)
[2017-08-27] MEDS ORDERED: POTASSIUM CHLORIDE TABS 20 MEQ TABLET.ER (FP) PO ONE (14:15)
--- NOTE | 2017-08-27 14:17 | PN ---
Progress Note, Physician History of Present Illness: Pt seen and examined at bedside. He is tolerating HD. He feels that his edema is starting to improve. - Current Medication List Current Medications: Active Medications Acetaminophen (Ofirmev Injection -) 1,000 mg IVPB Q6H PRN PRN Reason: FEVER OR PAIN Albuterol Sulfate (Ventolin Hfa Inhaler -) 1 puff IH Q6H PRN PRN Reason: SHORT OF BREATH/WHEEZING Atorvastatin Calcium (Lipitor -) 20 mg PO HS [facility] Last Admin: 08/26/17 21:09 Dose: 20 mg Budesonide/Formoterol Fumarate (Symbicort 160/4.5mcg -) 1 puff IH DAILY [facility] Last Admin: 08/27/17 13:53 Dose: 1 puff Calcium Carbonate (Calcium Carb Oral Suspension -) 500 mg PO DAILY [facility] Last Admin: 08/27/17 13:51 Dose: 500 mg Carvedilol (Coreg -) 12.5 mg PO BID [facility] Last Admin: 08/27/17 13:52 Dose: 12.5 mg Fluticasone Propionate (Flonase -) 1 spray NS BID [facility] Last Admin: 08/27/17 13:58 Dose: 1 spray Hydromorphone HCl (Dilaudid Injection -) 1 mg IVPUSH Q4H PRN PRN Reason: PAIN Last Admin: 08/27/17 13:49 Dose: 1 mg Lactated Ringer's (Lactated Ringers Solution) 1,000 mls @ 125 mls/hr IV ASDIR [facility] Last Admin: 08/26/17 18:07 Dose: Not Given Montelukast Sodium (Singulair -) 10 mg PO [facility] Last Admin: 08/26/17 21:09 Dose: 10 mg Ondansetron HCl (Zofran Injection) 4 mg IVPUSH Q4H PRN PRN Reason: NAUSEA AND/OR VOMITING Ondansetron HCl (Zofran Injection) 4 mg IVPUSH Q6H PRN PRN Reason: NAUSEA AND/OR VOMITING Pancrelipase (Creon Dr 36,000 Units Capsule) 1 cap PO TIDCM [facility] Last Admin: 08/27/17 13:53 Dose: 1 cap Pantoprazole Sodium (Protonix Iv) 40 mg IVPUSH DAILY [facility] Last Admin: 08/27/17 13:48 Dose: 40 mg Potassium Chloride (K-Dur -) 40 meq PO ONCE ONE Stop: 08/27/17 14:13 Promethazine HCl (Phenergan Injection -) 12.5 mg IVPB Q6H PRN PRN Reason: NAUSEA-FOR RESCUE AFTER 15 MIN Saliva Substitute (Mouthkote Solution -) 1 applic MM DAILY [facility] Last Admin: 08/27/17 14:05 Dose: 1 applic Tamsulosin HCl (Flomax -) 0.4 mg PO HS [facility] Last Admin: 08/26/17 21:09 Dose: 0.4 mg Tiotropium [place] (Spiriva -) 1 puff IH DAILY [facility] Last Admin: 08/27/17 13:52 Dose: 1 puff Trazodone HCl (Desyrel -) 100 mg PO HS [facility] Last Admin: 08/26/17 21:09 Dose: 100 mg Zolpidem Tartrate (Ambien -) 5 mg PO HS PRN PRN Reason: INSOMNIA Last Admin: 08/26/17 21:09 Dose: 5 mg - Objective Vital Signs: Vital Signs Temperature 97.4 F L 08/27/17 09:55 Pulse Rate 60 08/27/17 13:05 Respiratory Rate 18 08/27/17 13:05 Blood Pressure 135/75 08/27/17 13:05 O2 Sat by Pulse Oximetry (%) 98 08/27/17 08:28 Constitutional: Yes: Calm Eyes: Yes: Conjunctiva Clear HENT: Yes: Atraumatic Neck: Yes: Supple Cardiovascular: Yes: S1, S2 Respiratory: Yes: CTA Bilaterally Gastrointestinal: Yes: Normal Bowel Sounds, Soft Genitourinary: Yes: WNL Musculoskeletal: Yes: WNL Edema: Yes Edema: LLE: 1+, RLE: 1+ Neurological: Yes: Oriented Psychiatric: Yes: Oriented Labs: CBC, BMP 08/26/17 10:00 08/27/17 10:00 INR, PTT INR 1.32 (0.82-1.09) H 08/12/17 07:45 Problem List - Problems (1) CKD (chronic kidney disease) Code(s): N18.9 - CHRONIC KIDNEY DISEASE, UNSPECIFIED Qualifiers: Chronic kidney disease stage: stage 4 (severe) Qualified Code(s): N18.4 - Chronic kidney disease, stage 4 (severe) (2) Anemia Code(s): D64.9 - ANEMIA, UNSPECIFIED Qualifiers: Anemia type: unspecified type Qualified Code(s): D64.9 - Anemia, unspecified (3) Abdominal pain Code(s): R10.9 - UNSPECIFIED ABDOMINAL PAIN Qualifiers: Abdominal location: unspecified location Qualified Code(s): R10.9 - Unspecified abdominal pain (4) Rectal bleeding Code(s): K62.5 - HEMORRHAGE OF ANUS AND RECTUM (5) Acute exacerbation of COPD with asthma Code(s): J44.1 - CHRONIC OBSTRUCTIVE PULMONARY DISEASE W (ACUTE) EXACERBATION; J45.901 - UNSPECIFIED ASTHMA WITH (ACUTE) EXACERBATION (6) CHF (congestive heart failure) Code(s): I50.9 - HEART FAILURE, UNSPECIFIED Qualifiers: Congestive heart failure type: combined Congestive heart failure chronicity : acute on chronic Qualified Code(s): I50.43 - Acute on chronic combined systolic (congestive) and diastolic (congestive) heart failure Assessment/Plan Current Medications Generic Name Dose Route Start Last Admin Trade Name Freq PRN Reason Stop Dose Admin Acetaminophen 1,000 mg 08/25/17 17:58 Ofirmev Injection - IVPB Q6H PRN FEVER OR PAIN Albuterol Sulfate 1 puff 08/25/17 17:58 Ventolin Hfa Inhaler - IH Q6H PRN SHORT OF BREATH/WHEEZING Atorvastatin Calcium 20 mg 08/25/17 22:00 08/26/17 21:09 Lipitor - PO 20 mg HS [facility] Administration Budesonide/Formoterol Fumarate 1 puff 08/26/17 10:00 08/27/17 13:53 Symbicort 160/4.5mcg - IH 1 puff DAILY [facility] Administration Calcium Carbonate 500 mg 08/26/17 10:00 08/27/17 13:51 Calcium Carb Oral Suspension - PO 500 mg DAILY [facility] Administration Carvedilol 12.5 mg 08/25/17 22:00 08/27/17 13:52 Coreg - PO 12.5 mg BID [facility] Administration Fluticasone Propionate 1 spray 08/25/17 22:00 08/27/17 13:58 Flonase - NS 1 spray BID [facility] Administration Hydromorphone HCl 1 mg 08/26/17 17:41 08/27/17 13:49 Dilaudid Injection - IVPUSH 1 mg Q4H PRN Administration PAIN Lactated Ringer's 1,000 mls @ 125 mls/hr 08/25/17 17:58 08/26/17 18:07 Lactated Ringers Solution IV Not Given ASDIR [facility] Montelukast Sodium 10 mg 08/25/17 22:00 08/26/17 21:09 Singulair - PO 10 mg HS [facility] Administration Ondansetron HCl 4 mg 08/25/17 17:58 Zofran Injection IVPUSH Q4H PRN NAUSEA AND/OR VOMITING Ondansetron HCl 4 mg 08/25/17 17:58 Zofran Injection IVPUSH Q6H PRN NAUSEA AND/OR VOMITING Pancrelipase 1 cap 08/26/17 08:00 08/27/17 13:[address] 36,000 Units Capsule PO 1 cap TIDCM [facility] Administration Pantoprazole Sodium 40 mg 08/26/17 10:00 08/27/17 13:48 Protonix Iv IVPUSH 40 mg DAILY [facility] Administration Potassium Chloride 40 meq 08/27/17 14:12 K-Dur - PO 08/27/17 14:13 ONCE ONE Promethazine HCl 12.5 mg 08/25/17 17:58 Phenergan Injection - IVPB Q6H PRN NAUSEA-FOR RESCUE AFTER 15 MIN Saliva Substitute 1 applic 08/26/17 10:00 08/27/17 14:05 Mouthkote Solution - MM 1 applic DAILY [facility] Administration Tamsulosin HCl 0.4 mg 08/25/17 22:00 08/26/17 21:09 Flomax - PO 0.4 mg HS [facility] Administration Tiotropium [place] 1 puff 08/26/17 10:00 08/27/17 13:52 Spiriva - IH 1 puff DAILY [facility] Administration Trazodone HCl 100 mg 08/25/17 22:00 08/26/17 21:09 Desyrel - PO 100 mg HS [facility] Administration Zolpidem Tartrate 5 mg 08/25/17 22:04 08/26/17 21:09 Ambien - PO 5 mg HS PRN Administration INSOMNIA Laboratory Tests 08/26/17 08:30 Hep Bs Antigen Negative Hep Bs Antibody Non reactive Hep B Core Total Ab Negative Hepatitis C Antibody 0.2 Laboratory Tests 08/12/17 08/27/17 07:45 10:00 Iron 15 L Pending TIBC 220 L Iron Saturation 7 L Impression 1. ESRD 2. ALAN 3. anemia 4. GI bleed 5. BPH 6. a-fib 7. aortic aneurysm 8. COPD 9. insomnia 10. SBO Plan - HD today - set up HD as outpt for Thursday - epogen for anemai - discussd with case management - will need fistula, can do as outpt as he is eager to go home - replace potassium - check am labs - venofer with HD - will likely restart ARB next week - will follow closely Dr Ortega
[2017-08-27] MEDS: MONTELUKAST NA 10 MG TABLET PO SCH (22:02)
[2017-08-27] MEDS: ATORVASTATIN CA 20 MG TABLET (FP) PO SCH (22:02)
[2017-08-27] MEDS: TAMSULOSIN HCL 0.4 MG CAP.ER.24H (FP) PO SCH (22:02)
[2017-08-27] MEDS: ZOLPIDEM TARTRATE 5 MG TABLET PO PRN (22:02)
[2017-08-27] MEDS: traZODone HCL 50 MG TABLET (FP) PO SCH (22:02)
[2017-08-28 07:51] LABS: BASO % 0.4 % (0-2.0); EOS % 0.6 % (0-4.5); HEMATOCRIT 24.2 % (35.4-49); LYMPH % 4.6 % (8-40); MCH 29.5 pg (25.7-33.7); MCHC 32.9 g/dl (32.0-35.9); MEAN CELL VOLUME 89.9 fl (80-96); MEAN PLT VOLUME 8.2 fl (7.5-11.1); MONO % 8.7 % (3.8-10.2); NEUT % 85.7 % (42.8-82.8); PLATELET COUNT 135 K/MM3 (134-434); RDW 15.1 % (11.9-15.9); WHITE BLOOD COUNT 10.1 K/mm3 (4.0-10.0)
[2017-08-28] MEDS ORDERED: PT OWN MED DRAWER 7, Y5N ONE ×3 (08:32→21:09)
--- NOTE | 2017-08-28 08:32 | PN ---
Progress Note, Physician Chief Complaint: Feels better History of Present Illness: ESRD on hemodialysis - Current Medication List Current Medications: Active Medications Acetaminophen (Ofirmev Injection -) 1,000 mg IVPB Q6H PRN PRN Reason: FEVER OR PAIN Albuterol Sulfate (Ventolin Hfa Inhaler -) 1 puff IH Q6H PRN PRN Reason: SHORT OF BREATH/WHEEZING Atorvastatin Calcium (Lipitor -) 20 mg PO HS [facility] Last Admin: 08/27/17 22:02 Dose: 20 mg Budesonide/Formoterol Fumarate (Symbicort 160/4.5mcg -) 1 puff IH DAILY [facility] Last Admin: 08/27/17 13:53 Dose: 1 puff Calcium Carbonate (Calcium Carb Oral Suspension -) 500 mg PO DAILY [facility] Last Admin: 08/27/17 13:51 Dose: 500 mg Carvedilol (Coreg -) 12.5 mg PO BID [facility] Last Admin: 08/27/17 22:06 Dose: Not Given Fluticasone Propionate (Flonase -) 1 spray NS BID [facility] Last Admin: 08/27/17 22:05 Dose: 1 spray Hydromorphone HCl (Dilaudid Injection -) 1 mg IVPUSH Q4H PRN PRN Reason: PAIN Last Admin: 08/27/17 13:49 Dose: 1 mg Lactated Ringer's (Lactated Ringers Solution) 1,000 mls @ 125 mls/hr IV ASDIR [facility] Last Admin: 08/26/17 18:07 Dose: Not Given Montelukast Sodium (Singulair -) 10 mg PO HS [facility] Last Admin: 08/27/17 22:02 Dose: 10 mg Ondansetron HCl (Zofran Injection) 4 mg IVPUSH Q4H PRN PRN Reason: NAUSEA AND/OR VOMITING Ondansetron HCl (Zofran Injection) 4 mg IVPUSH Q6H PRN PRN Reason: NAUSEA AND/OR VOMITING Pancrelipase (Creon Dr 36,000 Units Capsule) 1 cap PO TIDCM [facility] Last Admin: 08/27/17 17:19 Dose: 1 cap Pantoprazole Sodium (Protonix Iv) 40 mg IVPUSH DAILY [facility] Last Admin: 08/27/17 13:48 Dose: 40 mg Promethazine HCl (Phenergan Injection -) 12.5 mg IVPB Q6H PRN PRN Reason: NAUSEA-FOR RESCUE AFTER 15 MIN Saliva Substitute (Mouthkote Solution -) 1 applic MM DAILY [facility] Last Admin: 08/27/17 14:05 Dose: 1 applic Tamsulosin HCl (Flomax -) 0.4 mg PO HS [facility] Last Admin: 08/27/17 22:02 Dose: 0.4 mg Tiotropium [place] (Spiriva -) 1 puff IH DAILY [facility] Last Admin: 08/27/17 13:52 Dose: 1 puff Trazodone HCl (Desyrel -) 100 mg PO HS [facility] Last Admin: 08/27/17 22:02 Dose: 100 mg Zolpidem Tartrate (Ambien -) 5 mg PO HS PRN PRN Reason: INSOMNIA Last Admin: 08/27/17 22:02 Dose: 5 mg - Objective Vital Signs: Vital Signs Temperature 98.8 F 08/28/17 05:51 Pulse Rate 60 08/28/17 05:51 Respiratory Rate 18 08/28/17 05:51 Blood Pressure 104/61 08/28/17 05:51 O2 Sat by Pulse Oximetry (%) 98 08/27/17 08:28 Constitutional: Yes: No Distress, Pallor HENT: Yes: WNL Neck: Yes: WNL Cardiovascular: Yes: Regular Rate and Rhythm Respiratory: Yes: WNL Gastrointestinal: Yes: Normal Bowel Sounds ...Rectal Exam: Yes: Deferred Genitourinary: Yes: Oliguria Edema: Yes Edema: LLE: 1+, RLE: 1+ Neurological: Yes: Alert Labs: CBC, BMP 08/28/17 05:05 INR, PTT INR 1.32 (0.82-1.09) H 08/12/17 07:45
[2017-08-28 08:35] LABS: CHLORIDE 107 mmol/L (98-107); POTASSIUM 3.1 mmol/L (3.5-5.1); SODIUM 142 mmol/L (136-145)
[2017-08-28] MEDS: LIPASE/PROTEASE/AMYLASE 36,000 UNIT CAPSULE PO SCH ×3 (08:39→17:36)
[2017-08-28 08:44] LABS: ANION GAP 8 (8-16); BLOOD UREA NITROGEN 29 mg/dL (7-18); CALCIUM 7.2 mg/dL (8.5-10.1); CO2 27 mmol/L (21-32); CREATININE 4.2 mg/dL (0.7-1.3); GLUCOSE,RANDOM 96 mg/dL (74-106)
[2017-08-28] MEDS ORDERED: POTASSIUM CHLORIDE TABS 20 MEQ TABLET.ER (FP) PO ONE (09:30)
--- NOTE | 2017-08-28 10:36 | PN ---
Progress Note, Physician Chief Complaint: small bowel obstruction History of Present Illness: 71 yo male with a MMP with history of intermittent constipation. Patient states he had a colonoscopy 5 years previous which was normal. CTscan on 08/17 shows distended stomach and small bowel, contrast was very proximal. Only previous abdominal surgery was an open appendectomy. abdominal pain is mostly resolved, having flatus and bowel movements. Tolerated renal diet. - Current Medication List Current Medications: Active Medications Acetaminophen (Ofirmev Injection -) 1,000 mg IVPB Q6H PRN PRN Reason: FEVER OR PAIN Albuterol Sulfate (Ventolin Hfa Inhaler -) 1 puff IH Q6H PRN PRN Reason: SHORT OF BREATH/WHEEZING Atorvastatin Calcium (Lipitor -) 20 mg PO HS [facility] Last Admin: 08/27/17 22:02 Dose: 20 mg Budesonide/Formoterol Fumarate (Symbicort 160/4.5mcg -) 1 puff IH DAILY [facility] Last Admin: 08/27/17 13:53 Dose: 1 puff Calcium Carbonate (Calcium Carb Oral Suspension -) 500 mg PO DAILY [facility] Last Admin: 08/27/17 13:51 Dose: 500 mg Carvedilol (Coreg -) 12.5 mg PO BID [facility] Last Admin: 08/27/17 22:06 Dose: Not Given Fluticasone Propionate (Flonase -) 1 spray NS BID [facility] Last Admin: 08/27/17 22:05 Dose: 1 spray Hydromorphone HCl (Dilaudid Injection -) 1 mg IVPUSH Q4H PRN PRN Reason: PAIN Last Admin: 08/27/17 13:49 Dose: 1 mg Lactated Ringer's (Lactated Ringers Solution) 1,000 mls @ 125 mls/hr IV ASDIR [facility] Last Admin: 08/26/17 18:07 Dose: Not Given Montelukast Sodium (Singulair -) 10 mg PO HS [facility] Last Admin: 08/27/17 22:02 Dose: 10 mg Ondansetron HCl (Zofran Injection) 4 mg IVPUSH Q4H PRN PRN Reason: NAUSEA AND/OR VOMITING Ondansetron HCl (Zofran Injection) 4 mg IVPUSH Q6H PRN PRN Reason: NAUSEA AND/OR VOMITING Pancrelipase (Creon Dr 36,000 Units Capsule) 1 cap PO TIDCM [facility] Last Admin: 08/28/17 08:39 Dose: 1 cap Pantoprazole Sodium (Protonix Iv) 40 mg IVPUSH DAILY [facility] Last Admin: 08/27/17 13:48 Dose: 40 mg Promethazine HCl (Phenergan Injection -) 12.5 mg IVPB Q6H PRN PRN Reason: NAUSEA-FOR RESCUE AFTER 15 MIN Saliva Substitute (Mouthkote Solution -) 1 applic MM DAILY [facility] Last Admin: 08/27/17 14:05 Dose: 1 applic Tamsulosin HCl (Flomax -) 0.4 mg PO HS [facility] Last Admin: 08/27/17 22:02 Dose: 0.4 mg Tiotropium [place] (Spiriva -) 1 puff IH DAILY [facility] Last Admin: 08/27/17 13:52 Dose: 1 puff Trazodone HCl (Desyrel -) 100 mg PO HS [facility] Last Admin: 08/27/17 22:02 Dose: 100 mg Zolpidem Tartrate (Ambien -) 5 mg PO HS PRN PRN Reason: INSOMNIA Last Admin: 08/27/17 22:02 Dose: 5 mg - Objective Vital Signs: Vital Signs Temperature 98.8 F 08/28/17 05:51 Pulse Rate 60 08/28/17 05:51 Respiratory Rate 18 08/28/17 05:51 Blood Pressure 104/61 08/28/17 05:51 O2 Sat by Pulse Oximetry (%) 98 08/27/17 08:28 Eyes: Yes: Conjunctiva Clear, EOM Intact HENT: Yes: Atraumatic, Normocephalic Neck: Yes: Supple, Trachea Midline Cardiovascular: Yes: Regular Rate and Rhythm, S1, S2 Respiratory: Yes: Regular, CTA Bilaterally Gastrointestinal: Yes: Normal Bowel Sounds, Soft, Hyperactive Bowel Sounds. No : Tenderness, Tenderness, Rebound Musculoskeletal: No: Muscle Pain, Muscle Weakness Edema: Yes Edema: RUE: 1+ (IV infiltraion ), LLE: 2+, RLE: 2+ Peripheral Pulses WNL: Yes Peripheral Pulses: Left Radial: 2+, Right Radial: 2+, Left Doralis Pedis: 2+, Right Dorsalis Pedis: 2+, Left Femoral: 2+, Right Femoral: 2+ Neurological: Yes: Alert, Oriented Psychiatric: Yes: Alert, Oriented Labs: CBC, BMP 08/28/17 05:05 12/22/17 06:30 INR, PTT INR 1.32 (0.82-1.09) H 08/12/17 07:45 Problem List - Problems (1) SBO (small bowel obstruction) Assessment/Plan: 71yo male MMP presents with a partial SBO, h/o appendectomy, recent normal colonoscopy, WBC is normal. started scheduled dialysis. resolved partial SBO. Tolerating renal , GI fuction is reported as more normal and regular. expresses concerns about being discharged over the weeknend, safety at home alone. Tolerating renal diet consider discharge thursday, if a safe discharge can not be assured over the holiday consider stool softener and fiber encourage ambulation resume oral cardiac medication will follow peripherally He does not require follow-up with general surgery upon discharge Dr. Frazier is covering for the weekend Code(s): K56.609 - UNSP INTESTNL OBST, UNSP TO PARTIAL VERSUS COMPLETE OBST (2) Abdominal pain Code(s): R10.9 - UNSPECIFIED ABDOMINAL PAIN Qualifiers: Abdominal location: unspecified location Qualified Code(s): R10.9 - Unspecified abdominal pain (3) Ileus, unspecified Code(s): K56.7 - ILEUS, UNSPECIFIED (4) Acute diverticulitis Code(s): K57.92 - DVTRCLI OF INTEST, PART UNSP, W/O PERF OR ABSCESS W/O BLEED (5) Anemia Code(s): D64.9 - ANEMIA, UNSPECIFIED Qualifiers: Anemia type: due to chronic kidney disease (6) Hypercholesterolemia Code(s): E78.00 - PURE HYPERCHOLESTEROLEMIA, UNSPECIFIED (7) CHF Congestive heart failure Code(s): I50.9 - HEART FAILURE, UNSPECIFIED
[2017-08-28] MEDS: CARVEDILOL 12.5 MG TABLET (FP) PO SCH ×2 (10:49→21:16)
[2017-08-28] MEDS: CALCIUM CARBONATE SUSPENSION - 500 MG/5 ML ML PO SCH (10:50)
[2017-08-28] MEDS: FLUTICASONE PROP 0.05% 16 GM NASAL SPRAY NS SCH ×2 (10:51→21:16)
[2017-08-28] MEDS: BUDESONIDE/FORMETEROL FUMARATE 160/4.5 mcg INHALER IH SCH (10:52)
[2017-08-28] MEDS: LYTES/YERBA SANTA 240 ML BOTTLE MM SCH (10:53)
[2017-08-28] MEDS: HYDROmorphone HCL CARPU-JECT 2 MG/1 ML DISP.SYRIN IVPUSH PRN (11:13)
--- NOTE | 2017-08-28 11:39 | PN ---
Progress Note, Physician History of Present Illness: stable doing well no abd complaints - Current Medication List Current Medications: Active Medications Acetaminophen (Ofirmev Injection -) 1,000 mg IVPB Q6H PRN PRN Reason: FEVER OR PAIN Albuterol Sulfate (Ventolin Hfa Inhaler -) 1 puff IH Q6H PRN PRN Reason: SHORT OF BREATH/WHEEZING Atorvastatin Calcium (Lipitor -) 20 mg PO [facility] Last Admin: 08/27/17 22:02 Dose: 20 mg Budesonide/Formoterol Fumarate (Symbicort 160/4.5mcg -) 1 puff IH DAILY [facility] Last Admin: 08/28/17 10:52 Dose: 1 puff Calcium Carbonate (Calcium Carb Oral Suspension -) 500 mg PO DAILY [facility] Last Admin: 08/28/17 10:50 Dose: 500 mg Carvedilol (Coreg -) 12.5 mg PO BID [facility] Last Admin: 08/28/17 10:49 Dose: 12.5 mg Fluticasone Propionate (Flonase -) 1 spray NS BID [facility] Last Admin: 08/28/17 10:51 Dose: 1 spray Hydromorphone HCl (Dilaudid Injection -) 1 mg IVPUSH Q4H PRN PRN Reason: PAIN Last Admin: 08/28/17 11:13 Dose: 1 mg Lactated Ringer's (Lactated Ringers Solution) 1,000 mls @ 125 mls/hr IV ASDIR [facility] Last Admin: 08/26/17 18:07 Dose: Not Given Montelukast Sodium (Singulair -) 10 mg PO [facility] Last Admin: 08/27/17 22:02 Dose: 10 mg Ondansetron HCl (Zofran Injection) 4 mg IVPUSH Q4H PRN PRN Reason: NAUSEA AND/OR VOMITING Ondansetron HCl (Zofran Injection) 4 mg IVPUSH Q6H PRN PRN Reason: NAUSEA AND/OR VOMITING Pancrelipase (Creon Dr 36,000 Units Capsule) 1 cap PO TIDCM [facility] Last Admin: 08/28/17 08:39 Dose: 1 cap Pantoprazole Sodium (Protonix -) 40 mg PO DAILY [facility] Promethazine HCl (Phenergan Injection -) 12.5 mg IVPB Q6H PRN PRN Reason: NAUSEA-FOR RESCUE AFTER 15 MIN Saliva Substitute (Mouthkote Solution -) 1 applic MM DAILY [facility] Last Admin: 08/28/17 10:53 Dose: 1 applic Tamsulosin HCl (Flomax -) 0.4 mg PO [facility] Last Admin: 08/27/17 22:02 Dose: 0.4 mg Tiotropium [place] (Spiriva -) 1 puff IH DAILY [facility] Last Admin: 08/27/17 13:52 Dose: 1 puff Trazodone HCl (Desyrel -) 100 mg PO HS [facility] Last Admin: 08/27/17 22:02 Dose: 100 mg Zolpidem Tartrate (Ambien -) 5 mg PO HS PRN PRN Reason: INSOMNIA Last Admin: 08/27/17 22:02 Dose: 5 mg - Objective Vital Signs: Vital Signs Temperature 98.8 F 08/28/17 05:51 Pulse Rate 60 08/28/17 05:51 Respiratory Rate 18 08/28/17 05:51 Blood Pressure 104/61 08/28/17 05:51 O2 Sat by Pulse Oximetry (%) 98 08/27/17 08:28 Constitutional: Yes: No Distress, Calm Cardiovascular: Yes: Regular Rate and Rhythm Respiratory: Yes: Regular, CTA Bilaterally Gastrointestinal: Yes: Normal Bowel Sounds, Soft Musculoskeletal: Yes: WNL Extremities: Yes: WNL Neurological: Yes: Alert, Oriented Psychiatric: Yes: Alert, Oriented Labs: CBC, BMP 08/28/17 05:05 08/28/17 06:30 INR, PTT INR 1.32 (0.82-1.09) H 08/12/17 07:45 Assessment/Plan Problem List - Problems (1) Rectal bleeding Assessment/Plan: resolved Code(s): K62.5 - HEMORRHAGE OF ANUS AND RECTUM (2) CHF (congestive heart failure) Assessment/Plan: stable no sob Code(s): I50.9 - HEART FAILURE, UNSPECIFIED Qualifiers: Congestive heart failure type: combined Congestive heart failure chronicity : acute on chronic Qualified Code(s): I50.43 - Acute on chronic combined systolic (congestive) and diastolic (congestive) heart failure (3) Acute diverticulitis Assessment/Plan: on iv abx id on board Code(s): K57.92 - DVTRCLI OF INTEST, PART UNSP, W/O PERF OR ABSCESS W/O BLEED (4) Anemia Assessment/Plan: monitor s/p prbc transfusion Code(s): D64.9 - ANEMIA, UNSPECIFIED Qualifiers: Anemia type: unspecified type Qualified Code(s): D64.9 - Anemia, unspecified (5) CKD (chronic kidney disease) Assessment/Plan: monitor...cr LITTLE BETTER on ivf...NEED FOR HD renal on board Code(s): N18.9 - CHRONIC KIDNEY DISEASE, UNSPECIFIED Qualifiers: Chronic kidney disease stage: stage 4 (severe) Qualified Code(s): N18.4 - Chronic kidney disease, stage 4 (severe) (6) CHF Congestive heart failure Code(s): I50.9 - HEART FAILURE, UNSPECIFIED (7) SBO (small bowel obstruction) Assessment/Plan: npo, ivf.. iv pain meds ngt in place as xray was worse today Code(s): K56.609 - UNSP INTESTNL OBST, UNSP TO PARTIAL VERSUS COMPLETE OBST (8) Hypercholesterolemia Code(s): E78.00 - PURE HYPERCHOLESTEROLEMIA, UNSPECIFIED patient already has been on levaquin and flagyl plan stopped abx stable off of abx close watch rest as per primary team
--- NOTE | 2017-08-28 11:41 | PN ---
Progress Note, Physician History of Present Illness: Tolerating regular diet without nausea/emesis. Undergoing HD via right PC TTHS - Current Medication List Current Medications: Active Medications Acetaminophen (Ofirmev Injection -) 1,000 mg IVPB Q6H PRN PRN Reason: FEVER OR PAIN Albuterol Sulfate (Ventolin Hfa Inhaler -) 1 puff IH Q6H PRN PRN Reason: SHORT OF BREATH/WHEEZING Atorvastatin Calcium (Lipitor -) 20 mg PO HS [facility] Last Admin: 08/27/17 22:02 Dose: 20 mg Budesonide/Formoterol Fumarate (Symbicort 160/4.5mcg -) 1 puff IH DAILY [facility] Last Admin: 08/28/17 10:52 Dose: 1 puff Calcium Carbonate (Calcium Carb Oral Suspension -) 500 mg PO DAILY [facility] Last Admin: 08/28/17 10:50 Dose: 500 mg Carvedilol (Coreg -) 12.5 mg PO BID [facility] Last Admin: 08/28/17 10:49 Dose: 12.5 mg Fluticasone Propionate (Flonase -) 1 spray NS BID [facility] Last Admin: 08/28/17 10:51 Dose: 1 spray Hydromorphone HCl (Dilaudid Injection -) 1 mg IVPUSH Q4H PRN PRN Reason: PAIN Last Admin: 08/28/17 11:13 Dose: 1 mg Lactated Ringer's (Lactated Ringers Solution) 1,000 mls @ 125 mls/hr IV ASDIR [facility] Last Admin: 08/26/17 18:07 Dose: Not Given Montelukast Sodium (Singulair -) 10 mg PO [facility] Last Admin: 08/27/17 22:02 Dose: 10 mg Ondansetron HCl (Zofran Injection) 4 mg IVPUSH Q4H PRN PRN Reason: NAUSEA AND/OR VOMITING Ondansetron HCl (Zofran Injection) 4 mg IVPUSH Q6H PRN PRN Reason: NAUSEA AND/OR VOMITING Pancrelipase (Creon Dr 36,000 Units Capsule) 1 cap PO TIDCM [facility] Last Admin: 08/28/17 08:39 Dose: 1 cap Pantoprazole Sodium (Protonix -) 40 mg PO DAILY [facility] Promethazine HCl (Phenergan Injection -) 12.5 mg IVPB Q6H PRN PRN Reason: NAUSEA-FOR RESCUE AFTER 15 MIN Saliva Substitute (Mouthkote Solution -) 1 applic MM DAILY [facility] Last Admin: 08/28/17 10:53 Dose: 1 applic Tamsulosin HCl (Flomax -) 0.4 mg PO [facility] Last Admin: 08/27/17 22:02 Dose: 0.4 mg Tiotropium [place] (Spiriva -) 1 puff IH DAILY [facility] Last Admin: 08/27/17 13:52 Dose: 1 puff Trazodone HCl (Desyrel -) 100 mg PO [facility] Last Admin: 08/27/17 22:02 Dose: 100 mg Zolpidem Tartrate (Ambien -) 5 mg PO HS PRN PRN Reason: INSOMNIA Last Admin: 08/27/17 22:02 Dose: 5 mg - Objective Vital Signs: Vital Signs Temperature 98.8 F 08/28/17 05:51 Pulse Rate 60 08/28/17 05:51 Respiratory Rate 18 08/28/17 05:51 Blood Pressure 104/61 08/28/17 05:51 O2 Sat by Pulse Oximetry (%) 98 08/27/17 08:28 Constitutional: Yes: No Distress, Calm Neck: Yes: Supple Cardiovascular: Yes: Pulse Irregular Respiratory: Yes: Regular, Diminished Gastrointestinal: Yes: Normal Bowel Sounds, Soft, Abdomen, Obese Edema: Yes Edema: LLE: 2+, RLE: 2+ Labs: CBC, BMP 08/28/17 05:05 08/28/17 06:30 INR, PTT INR 1.32 (0.82-1.09) H 08/12/17 07:45 Problem List - Problems (1) Anemia Code(s): D64.9 - ANEMIA, UNSPECIFIED Qualifiers: Anemia type: due to chronic kidney disease (2) CVD (cerebrovascular disease) Code(s): I67.9 - CEREBROVASCULAR DISEASE, UNSPECIFIED (3) Hx of CABG Code(s): Z95.1 - PRESENCE OF AORTOCORONARY BYPASS GRAFT (4) Hypercholesterolemia Code(s): E78.00 - PURE HYPERCHOLESTEROLEMIA, UNSPECIFIED (5) Presence of permanent cardiac pacemaker Code(s): Z95.0 - PRESENCE OF CARDIAC PACEMAKER (6) Sick sinus syndrome Code(s): I49.5 - SICK SINUS SYNDROME (7) CHF Congestive heart failure Code(s): I50.9 - HEART FAILURE, UNSPECIFIED (8) Abdominal aortic aneurysm (AAA) Code(s): I71.4 - ABDOMINAL AORTIC ANEURYSM, WITHOUT RUPTURE Qualifiers: Presence of rupture: without rupture Qualified Code(s): I71.4 - Abdominal aortic aneurysm, without rupture (9) Ischemic colitis Code(s): K55.9 - VASCULAR DISORDER OF INTESTINE, UNSPECIFIED (10) Rectal bleeding Code(s): K62.5 - HEMORRHAGE OF ANUS AND RECTUM (11) [id number] kidney injury Code(s): N17.9 - ACUTE KIDNEY FAILURE, UNSPECIFIED; N18.9 - CHRONIC KIDNEY DISEASE, UNSPECIFIED Qualifiers: Acute renal failure type: unspecified Chronic kidney disease stage: stage 5 , not on chronic dialysis Qualified Code(s): N17.9 - Acute kidney failure, unspecified; N18.5 - Chronic kidney disease, stage 5; N18.5 - Chronic kidney disease, stage 5; N18.5 - Chronic kidney disease, stage 5; N18.5 - Chronic kidney disease, stage 5 Assessment/Plan 1. Rectal bleed, underlying diverticulitis with partial SBO with dilated small bowel loops - resolved 2. CAD s/p CABG, angina pectoris 3. Persistent AF with underlying PPM for sick sinus syndrome 4. Acute on CKD on HD 5. Hypercholesterolemia 6. CVA/TIA 7. COPD 8. TAA and AAA 9. Anemia of CKD PLAN: 1. Hemodialysis TTHS via right PC 2. Plan for AVF 3. Continue Carvedilol 12.5 bid 4. Continue Atorvastatin 20 qhs 5. Monitor CBC and transfuse PRBC as needed 6. TAA and AAA likely also needs surveillance probably not ready for intervention 7. Resume ARB next week per renal Further plans are to follow. Currently he is off Eliquis, but will need to resume systemic a/c several weeks after resolution of rectal bleed
[2017-08-28] MEDS: TIOTROPIUM BROMIDE 18 MCG/INH (DEVICE W/ 5 CAPSULES) IH SCH (12:59)
--- NOTE | 2017-08-28 16:08 | PN ---
Progress Note, Physician History of Present Illness: Pt seen and examined at bedside. He is awake and alert. He is tolerating diet. - Current Medication List Current Medications: Active Medications Acetaminophen (Ofirmev Injection -) 1,000 mg IVPB Q6H PRN PRN Reason: FEVER OR PAIN Albuterol Sulfate (Ventolin Hfa Inhaler -) 1 puff IH Q6H PRN PRN Reason: SHORT OF BREATH/WHEEZING Atorvastatin Calcium (Lipitor -) 20 mg PO HS [facility] Last Admin: 08/27/17 22:02 Dose: 20 mg Budesonide/Formoterol Fumarate (Symbicort 160/4.5mcg -) 1 puff IH DAILY [facility] Last Admin: 08/28/17 10:52 Dose: 1 puff Calcium Carbonate (Calcium Carb Oral Suspension -) 500 mg PO DAILY [facility] Last Admin: 08/28/17 10:50 Dose: 500 mg Carvedilol (Coreg -) 12.5 mg PO BID [facility] Last Admin: 08/28/17 10:49 Dose: 12.5 mg Fluticasone Propionate (Flonase -) 1 spray NS BID [facility] Last Admin: 08/28/17 10:51 Dose: 1 spray Furosemide (Lasix -) 80 mg PO ONCE ONE Stop: 08/28/17 16:07 Hydromorphone HCl (Dilaudid Injection -) 1 mg IVPUSH Q4H PRN PRN Reason: PAIN Last Admin: 08/28/17 11:13 Dose: 1 mg Lactated Ringer's (Lactated Ringers Solution) 1,000 mls @ 125 mls/hr IV ASDIR [facility] Last Admin: 08/26/17 18:07 Dose: Not Given Montelukast Sodium (Singulair -) 10 mg PO [facility] Last Admin: 08/27/17 22:02 Dose: 10 mg Ondansetron HCl (Zofran Injection) 4 mg IVPUSH Q4H PRN PRN Reason: NAUSEA AND/OR VOMITING Ondansetron HCl (Zofran Injection) 4 mg IVPUSH Q6H PRN PRN Reason: NAUSEA AND/OR VOMITING Pancrelipase (Creon Dr 36,000 Units Capsule) 1 cap PO TIDCM [facility] Last Admin: 08/28/17 12:59 Dose: 1 cap Pantoprazole Sodium (Protonix -) 40 mg PO DAILY [facility] Promethazine HCl (Phenergan Injection -) 12.5 mg IVPB Q6H PRN PRN Reason: NAUSEA-FOR RESCUE AFTER 15 MIN Saliva Substitute (Mouthkote Solution -) 1 applic MM DAILY [facility] Last Admin: 08/28/17 10:53 Dose: 1 applic Tamsulosin HCl (Flomax -) 0.4 mg PO HS [facility] Last Admin: 08/27/17 22:02 Dose: 0.4 mg Tiotropium [place] (Spiriva -) 1 puff IH DAILY [facility] Last Admin: 08/28/17 12:59 Dose: 1 puff Trazodone HCl (Desyrel -) 100 mg PO HS [facility] Last Admin: 08/27/17 22:02 Dose: 100 mg Zolpidem Tartrate (Ambien -) 5 mg PO HS PRN PRN Reason: INSOMNIA Last Admin: 08/27/17 22:02 Dose: 5 mg - Objective Vital Signs: Vital Signs Temperature 98.4 F 08/28/17 14:57 Pulse Rate 63 08/28/17 14:57 Respiratory Rate 18 08/28/17 14:57 Blood Pressure 118/66 08/28/17 14:57 O2 Sat by Pulse Oximetry (%) 98 08/27/17 08:28 Constitutional: Yes: Calm Eyes: Yes: Conjunctiva Clear HENT: Yes: Atraumatic Cardiovascular: Yes: S1, S2 Respiratory: Yes: CTA Bilaterally Gastrointestinal: Yes: Soft. No: Tenderness Genitourinary: Yes: WNL Musculoskeletal: Yes: WNL Edema: Yes Edema: LLE: 2+, RLE: 2+ Neurological: Yes: Oriented Psychiatric: Yes: Oriented Labs: CBC, BMP 08/28/17 05:05 08/28/17 06:30 INR, PTT INR 1.32 (0.82-1.09) H 08/12/17 07:45 Problem List - Problems (1) CKD (chronic kidney disease) Code(s): N18.9 - CHRONIC KIDNEY DISEASE, UNSPECIFIED Qualifiers: Chronic kidney disease stage: stage 4 (severe) Qualified Code(s): N18.4 - Chronic kidney disease, stage 4 (severe) (2) Anemia Code(s): D64.9 - ANEMIA, UNSPECIFIED Qualifiers: Anemia type: due to chronic kidney disease (3) Abdominal pain Code(s): R10.9 - UNSPECIFIED ABDOMINAL PAIN Qualifiers: Abdominal location: unspecified location Qualified Code(s): R10.9 - Unspecified abdominal pain (4) Rectal bleeding Code(s): K62.5 - HEMORRHAGE OF ANUS AND RECTUM (5) Acute exacerbation of COPD with asthma Code(s): J44.1 - CHRONIC OBSTRUCTIVE PULMONARY DISEASE W (ACUTE) EXACERBATION; J45.901 - UNSPECIFIED ASTHMA WITH (ACUTE) EXACERBATION (6) CHF (congestive heart failure) Code(s): I50.9 - HEART FAILURE, UNSPECIFIED Qualifiers: Congestive heart failure type: combined Congestive heart failure chronicity : acute on chronic Qualified Code(s): I50.43 - Acute on chronic combined systolic (congestive) and diastolic (congestive) heart failure Assessment/Plan Current Medications Generic Name Dose Route Start Last Admin Trade Name Freq PRN Reason Stop Dose Admin Acetaminophen 1,000 mg 08/25/17 17:58 Ofirmev Injection - IVPB Q6H PRN FEVER OR PAIN Albuterol Sulfate 1 puff 08/25/17 17:58 Ventolin Hfa Inhaler - IH Q6H PRN SHORT OF BREATH/WHEEZING Atorvastatin Calcium 20 mg 08/25/17 22:00 08/27/17 22:02 Lipitor - PO 20 mg HS [facility] Administration Budesonide/Formoterol Fumarate 1 puff 08/26/17 10:00 08/28/17 10:52 Symbicort 160/4.5mcg - IH 1 puff DAILY [facility] Administration Calcium Carbonate 500 mg 08/26/17 10:00 08/28/17 10:50 Calcium Carb Oral Suspension - PO 500 mg DAILY [facility] Administration Carvedilol 12.5 mg 08/25/17 22:00 08/28/17 10:49 Coreg - PO 12.5 mg BID [facility] Administration Fluticasone Propionate 1 spray 08/25/17 22:00 08/28/17 10:51 Flonase - NS 1 spray BID [facility] Administration Furosemide 80 mg 08/28/17 16:06 Lasix - PO 08/28/17 16:07 ONCE ONE Hydromorphone HCl 1 mg 08/26/17 17:41 08/28/17 11:13 Dilaudid Injection - IVPUSH 1 mg Q4H PRN Administration PAIN Lactated Ringer's 1,000 mls @ 125 mls/hr 08/25/17 17:58 08/26/17 18:07 Lactated Ringers Solution IV Not Given ASDIR [facility] Montelukast Sodium 10 mg 08/25/17 22:00 08/27/17 22:02 Singulair - PO 10 mg HS [facility] Administration Ondansetron HCl 4 mg 08/25/17 17:58 Zofran Injection IVPUSH Q4H PRN NAUSEA AND/OR VOMITING Ondansetron HCl 4 mg 08/25/17 17:58 Zofran Injection IVPUSH Q6H PRN NAUSEA AND/OR VOMITING Pancrelipase 1 cap 08/26/17 08:00 08/28/17 12:59 Creon 36,000 Units Capsule PO 1 cap TIDCM [facility] Administration Pantoprazole Sodium 40 mg 08/29/17 10:00 Protonix - PO DAILY [facility] Promethazine HCl 12.5 mg 08/25/17 17:58 Phenergan Injection - IVPB Q6H PRN NAUSEA-FOR RESCUE AFTER 15 MIN Saliva Substitute 1 applic 08/26/17 10:00 08/28/17 10:53 Mouthkote Solution - MM 1 applic DAILY [facility] Administration Tamsulosin HCl 0.4 mg 08/25/17 22:00 08/27/17 22:02 Flomax - PO 0.4 mg HS [facility] Administration Tiotropium [place] 1 puff 08/26/17 10:00 08/28/17 12:59 Spiriva - IH 1 puff DAILY [facility] Administration Trazodone HCl 100 mg 08/25/17 22:00 08/27/17 22:02 Desyrel - PO 100 mg HS [facility] Administration Zolpidem Tartrate 5 mg 08/25/17 22:04 08/27/17 22:02 Ambien - PO 5 mg HS PRN Administration INSOMNIA Impression 1. ESRD 2. ALAN 3. anemia 4. GI bleed 5. BPH 6. a-fib 7. aortic aneurysm 8. COPD 9. insomnia 10. SBO Plan - will give a dose of lasix - HD in am - replace potassium - monitor lytes - pt will still need a fistula - venofer with HD - will likely restart ARB next week - will follow closely Dr Ortega
[2017-08-28] MEDS ORDERED: FUROSEMIDE 40 MG TABLET (FP) PO ONE (16:15)
[2017-08-28] MEDS: LACTATED RINGERS SOLUTION 1,000 ML IV SCH (17:19)
[2017-08-28] MEDS ORDERED: ACETAMINOPHEN 325 MG TABLET (FP) PO PRN (17:35)
--- NOTE | 2017-08-28 18:07 | PN ---
Progress Note (short form) - Note Progress Note: Vascular Surgery Pt seen and examined. PC in place. Swelling in arm getting better. elevation of arm. cont present care. Lasha Crandall DO
[2017-08-28] MEDS: ZOLPIDEM TARTRATE 5 MG TABLET PO PRN (21:15)
[2017-08-28] MEDS: traZODone HCL 50 MG TABLET (FP) PO SCH (21:16)
[2017-08-28] MEDS: oxyCODONE HCL 5 MG TABLET PO PRN (21:16)
[2017-08-28] MEDS: TAMSULOSIN HCL 0.4 MG CAP.ER.24H (FP) PO SCH (21:16)
[2017-08-28] MEDS: ATORVASTATIN CA 20 MG TABLET (FP) PO SCH (21:16)
[2017-08-28] MEDS: MONTELUKAST NA 10 MG TABLET PO SCH (21:16)
[2017-08-29] MEDS: LIPASE/PROTEASE/AMYLASE 36,000 UNIT CAPSULE PO SCH ×3 (07:55→17:39)
[2017-08-29 08:42] LABS: HEMATOCRIT 27.5 % (35.4-49); HEMOGLOBIN 8.7 GM/dL (11.7-16.9); MCH 28.7 pg (25.7-33.7); MCHC 31.6 g/dl (32.0-35.9); MEAN CELL VOLUME 90.8 fl (80-96); MEAN PLT VOLUME 8.2 fl (7.5-11.1); PLATELET COUNT 155 K/MM3 (134-434); RBC 3.03 M/mm3 (4.00-5.60); RDW 15.7 % (11.9-15.9); WHITE BLOOD COUNT 11.3 K/mm3 (4.0-10.0)
--- NOTE | 2017-08-29 08:46 | PN ---
Progress Note, Physician Chief Complaint: No new complaints History of Present Illness: On HD now - Current Medication List Current Medications: Active Medications Acetaminophen (Tylenol -) 325 mg PO Q8H PRN PRN Reason: PAIN Acetaminophen (Tylenol -) 650 mg PO Q4H PRN PRN Reason: FEVER OR PAIN Albuterol Sulfate (Ventolin Hfa Inhaler -) 1 puff IH Q6H PRN PRN Reason: SHORT OF BREATH/WHEEZING Atorvastatin Calcium (Lipitor -) 20 mg PO HS [facility] Last Admin: 08/28/17 21:16 Dose: 20 mg Budesonide/Formoterol Fumarate (Symbicort 160/4.5mcg -) 1 puff IH DAILY [facility] Last Admin: 08/28/17 10:52 Dose: 1 puff Calcium Carbonate (Calcium Carb Oral Suspension -) 500 mg PO DAILY [facility] Last Admin: 08/28/17 10:50 Dose: 500 mg Carvedilol (Coreg -) 12.5 mg PO BID [facility] Last Admin: 08/28/17 21:16 Dose: 12.5 mg Epoetin Anshu (Epogen -) 3,000 units IVPUSH ONCE ONE Stop: 08/29/17 16:10 Fluticasone Propionate (Flonase -) 1 spray NS BID [facility] Last Admin: 08/28/17 21:16 Dose: 1 spray Iron Sucrose 100 mg/ Sodium (Chloride) 100 mls @ 200 mls/hr IVPB ONCE ONE Stop: 08/29/17 16:38 Montelukast Sodium (Singulair -) 10 mg PO [facility] Last Admin: 08/28/17 21:16 Dose: 10 mg Ondansetron HCl (Zofran Injection) 4 mg IVPUSH Q4H PRN PRN Reason: NAUSEA AND/OR VOMITING Oxycodone HCl (Roxicodone -) 5 mg PO Q8H PRN PRN Reason: PAIN Last Admin: 08/28/17 21:16 Dose: 5 mg Pancrelipase (Creon Dr 36,000 Units Capsule) 1 cap PO TIDCM [facility] Last Admin: 08/29/17 07:55 Dose: 1 cap Pantoprazole Sodium (Protonix -) 40 mg PO DAILY [facility] Saliva Substitute (Mouthkote Solution -) 1 applic MM DAILY [facility] Last Admin: 08/28/17 10:53 Dose: 1 applic Tamsulosin HCl (Flomax -) 0.4 mg PO HS [facility] Last Admin: 08/28/17 21:16 Dose: 0.4 mg Tiotropium [place] (Spiriva -) 1 puff IH DAILY [facility] Last Admin: 08/28/17 12:59 Dose: 1 puff Trazodone HCl (Desyrel -) 100 mg PO HS [facility] Last Admin: 08/28/17 21:16 Dose: 100 mg Zolpidem Tartrate (Ambien -) 5 mg PO HS PRN PRN Reason: INSOMNIA Last Admin: 08/28/17 21:15 Dose: 5 mg - Objective Vital Signs: Vital Signs Temperature 98.9 F 08/29/17 05:40 Pulse Rate 62 08/29/17 05:40 Respiratory Rate 18 08/29/17 05:40 Blood Pressure 130/90 08/29/17 05:40 O2 Sat by Pulse Oximetry (%) 98 08/27/17 08:28 Constitutional: Yes: No Distress Eyes: Yes: WNL HENT: Yes: WNL Neck: Yes: WNL Cardiovascular: Yes: WNL Respiratory: Yes: WNL Gastrointestinal: Yes: Normal Bowel Sounds ...Rectal Exam: Yes: Deferred Genitourinary: Yes: Oliguria Musculoskeletal: Yes: Muscle Weakness Edema: No Neurological: Yes: Alert Labs: INR, PTT INR 1.32 (0.82-1.09) H 08/12/17 07:45 Assessment/Plan After one more dialysis ,can be discharged home Continue same trt
[2017-08-29 09:10] LABS: ANION GAP 7 (8-16); BLOOD UREA NITROGEN 35 mg/dL (7-18); CALCIUM 7.2 mg/dL (8.5-10.1); CHLORIDE 105 mmol/L (98-107); CO2 26 mmol/L (21-32); CREATININE 5.1 mg/dL (0.7-1.3); GLUCOSE,RANDOM 113 mg/dL (74-106); POTASSIUM 3.7 mmol/L (3.5-5.1); SODIUM 138 mmol/L (136-145)
[2017-08-29] MEDS ORDERED: IRON SUCROSE INJECTION 100 MG in SODIUM CHLORIDE 95 ML IVPB ONE (10:00)
[2017-08-29] MEDS ORDERED: EPOETIN ALFA 3,000 UNIT/1 ML ML IVPUSH ONE (10:00)
--- NOTE | 2017-08-29 11:39 | PN ---
Progress Note (short form) - Note Progress Note: RENAL Pt is awake and alert comfortable currently on hemodialysis wants to be given lasix in addition to dialysis Current Medications Generic Name Dose Route Start Last Admin Trade Name Freq PRN Reason Stop Dose Admin Acetaminophen 325 mg 08/28/17 17:32 Tylenol - PO Q8H PRN PAIN Acetaminophen 650 mg 08/28/17 17:35 Tylenol - PO Q4H PRN FEVER OR PAIN Albuterol Sulfate 1 puff 08/25/17 17:58 Ventolin Hfa Inhaler - IH Q6H PRN SHORT OF BREATH/WHEEZING Atorvastatin Calcium 20 mg 08/25/17 22:00 08/28/17 21:16 Lipitor - PO 20 mg HS [facility] Administration Budesonide/Formoterol Fumarate 1 puff 08/26/17 10:00 08/28/17 10:52 Symbicort 160/4.5mcg - IH 1 puff DAILY [facility] Administration Calcium Carbonate 500 mg 08/26/17 10:00 08/28/17 10:50 Calcium Carb Oral Suspension - PO 500 mg DAILY [facility] Administration Carvedilol 12.5 mg 08/25/17 22:00 08/28/17 21:16 Coreg - PO 12.5 mg BID [facility] Administration Fluticasone Propionate 1 spray 08/25/17 22:00 08/28/17 21:16 Flonase - NS 1 spray BID [facility] Administration Montelukast Sodium 10 mg 08/25/17 22:00 08/28/17 21:16 Singulair - PO 10 mg HS [facility] Administration Ondansetron HCl 4 mg 08/25/17 17:58 Zofran Injection IVPUSH Q4H PRN NAUSEA AND/OR VOMITING Oxycodone HCl 5 mg 08/28/17 17:32 08/28/17 21:16 Roxicodone - PO 5 mg Q8H PRN Administration PAIN Pancrelipase 1 cap 08/26/17 08:00 08/29/17 07:55 [place] 36,000 Units Capsule PO 1 cap TIDCM [facility] Administration Pantoprazole Sodium 40 mg 08/29/17 10:00 Protonix - PO DAILY [facility] Saliva Substitute 1 applic 08/26/17 10:00 08/28/17 10:53 Mouthkote Solution - MM 1 applic DAILY [facility] Administration Tamsulosin HCl 0.4 mg 08/25/17 22:00 08/28/17 21:16 Flomax - PO 0.4 mg HS [facility] Administration Tiotropium [place] 1 puff 08/26/17 10:00 08/28/17 12:59 Spiriva - IH 1 puff DAILY [facility] Administration Trazodone HCl 100 mg 08/25/17 22:00 08/28/17 21:16 Desyrel - PO 100 mg HS [facility] Administration Zolpidem Tartrate 5 mg 08/28/17 22:00 08/28/17 21:15 Ambien - PO 5 mg HS PRN Administration INSOMNIA Last Vital Signs Temp Pulse Resp BP Pulse Ox 98.2 F 78 18 88/60 98 08/29/17 08:15 08/29/17 09:50 08/29/17 09:50 08/29/17 09:50 08/27/17 08:28 Lungs clear cvs s1s2 rr abd soft ext +edema neuro a+ox3 CBC, BMP 08/29/17 08:20 08/29/17 08:20 Impression 1. ESRD with associated fluid overload 2. ALAN 3. anemia 4. GI bleed 5. BPH 6. a-fib 7. aortic aneurysm 8. COPD 9. insomnia 10. SBO Plan - will give a dose of lasix again today - being dialyzed against a 3 k bath - monitor lytes - pt will still need a fistula. Has had progressive CKD over 5 to 6 years - venofer with HD [facility]
[2017-08-29] MEDS: PANTOPRAZOLE 40 MG TABLET (FP) PO SCH (13:04)
[2017-08-29] MEDS: CARVEDILOL 12.5 MG TABLET (FP) PO SCH ×2 (13:04→21:05)
[2017-08-29] MEDS: CALCIUM CARBONATE SUSPENSION - 500 MG/5 ML ML PO SCH (13:05)
[2017-08-29] MEDS: TIOTROPIUM BROMIDE 18 MCG/INH (DEVICE W/ 5 CAPSULES) IH SCH (13:06)
[2017-08-29] MEDS: FLUTICASONE PROP 0.05% 16 GM NASAL SPRAY NS SCH ×2 (13:06→21:05)
[2017-08-29] MEDS: BUDESONIDE/FORMETEROL FUMARATE 160/4.5 mcg INHALER IH SCH (13:07)
[2017-08-29] MEDS: oxyCODONE HCL 5 MG TABLET PO PRN ×2 (13:08→21:05)
[2017-08-29] MEDS: ACETAMINOPHEN 325 MG TABLET (FP) PO PRN (13:09)
[2017-08-29] MEDS: LYTES/YERBA SANTA 240 ML BOTTLE MM SCH (13:11)
--- NOTE | 2017-08-29 13:54 | PN ---
Progress Note, Physician History of Present Illness: Pt known to me. Events noted. Pt seen and examined. He is doing better. Had small BM today, afebrile, without distress. Has been started on HD. - Current Medication List Current Medications: Active Medications Acetaminophen (Tylenol -) 325 mg PO Q8H PRN PRN Reason: PAIN Last Admin: 08/29/17 13:09 Dose: 325 mg Acetaminophen (Tylenol -) 650 mg PO Q4H PRN PRN Reason: FEVER OR PAIN Albuterol Sulfate (Ventolin Hfa Inhaler -) 1 puff IH Q6H PRN PRN Reason: SHORT OF BREATH/WHEEZING Atorvastatin Calcium (Lipitor -) 20 mg PO HS [facility] Last Admin: 08/28/17 21:16 Dose: 20 mg Budesonide/Formoterol Fumarate (Symbicort 160/4.5mcg -) 1 puff IH DAILY [facility] Last Admin: 08/29/17 13:07 Dose: 1 puff Calcium Carbonate (Calcium Carb Oral Suspension -) 500 mg PO DAILY [facility] Last Admin: 08/29/17 13:05 Dose: 500 mg Carvedilol (Coreg -) 12.5 mg PO BID [facility] Last Admin: 08/29/17 13:04 Dose: 12.5 mg Fluticasone Propionate (Flonase -) 1 spray NS BID [facility] Last Admin: 08/29/17 13:06 Dose: 1 spray Furosemide (Lasix -) 80 mg PO ONCE ONE Stop: 08/29/17 16:01 Montelukast Sodium (Singulair -) 10 mg PO HS [facility] Last Admin: 08/28/17 21:16 Dose: 10 mg Ondansetron HCl (Zofran Injection) 4 mg IVPUSH Q4H PRN PRN Reason: NAUSEA AND/OR VOMITING Oxycodone HCl (Roxicodone -) 5 mg PO Q8H PRN PRN Reason: PAIN Last Admin: 08/29/17 13:08 Dose: 5 mg Pancrelipase (Creon Dr 36,000 Units Capsule) 1 cap PO TIDCM [facility] Last Admin: 08/29/17 13:08 Dose: 1 cap Pantoprazole Sodium (Protonix -) 40 mg PO DAILY [facility] Last Admin: 08/29/17 13:04 Dose: 40 mg Saliva Substitute (Mouthkote Solution -) 1 applic MM DAILY [facility] Last Admin: 08/29/17 13:11 Dose: 1 applic Tamsulosin HCl (Flomax -) 0.4 mg PO HS [facility] Last Admin: 08/28/17 21:16 Dose: 0.4 mg Tiotropium [place] (Spiriva -) 1 puff IH DAILY [facility] Last Admin: 08/29/17 13:06 Dose: 1 puff Trazodone HCl (Desyrel -) 100 mg PO HS [facility] Last Admin: 08/28/17 21:16 Dose: 100 mg Zolpidem Tartrate (Ambien -) 5 mg PO HS PRN PRN Reason: INSOMNIA Last Admin: 08/28/17 21:15 Dose: 5 mg - Objective Vital Signs: Vital Signs Temperature 98.2 F 08/29/17 08:15 Pulse Rate 68 08/29/17 12:00 Respiratory Rate 18 08/29/17 12:00 Blood Pressure 130/72 08/29/17 12:00 O2 Sat by Pulse Oximetry (%) 98 08/27/17 08:28 Constitutional: Yes: No Distress, Calm Neck: Yes: Supple Cardiovascular: Yes: Regular Rate and Rhythm Respiratory: Yes: CTA Bilaterally Gastrointestinal: Yes: Normal Bowel Sounds, Soft Extremities: Yes: WNL Neurological: Yes: Alert, Oriented Labs: CBC, BMP 08/29/17 08:20 08/29/17 08:20 INR, PTT INR 1.32 (0.82-1.09) H 08/12/17 07:45 Problem List - Problems (1) Acute diverticulitis Code(s): K57.92 - DVTRCLI OF INTEST, PART UNSP, W/O PERF OR ABSCESS W/O BLEED (2) CKD (chronic kidney disease) Code(s): N18.9 - CHRONIC KIDNEY DISEASE, UNSPECIFIED Qualifiers: Chronic kidney disease stage: stage 4 (severe) Qualified Code(s): N18.4 - Chronic kidney disease, stage 4 (severe) (3) Rectal bleeding Code(s): K62.5 - HEMORRHAGE OF ANUS AND RECTUM (4) CHF (congestive heart failure) Code(s): I50.9 - HEART FAILURE, UNSPECIFIED Qualifiers: Congestive heart failure type: combined Congestive heart failure chronicity : acute on chronic Qualified Code(s): I50.43 - Acute on chronic combined systolic (congestive) and diastolic (congestive) heart failure (5) SBO (small bowel obstruction) Code(s): K56.609 - UNSP INTESTNL OBST, UNSP TO PARTIAL VERSUS COMPLETE OBST Assessment/Plan Pt with resolved diverticulitis SBO, CKD now on HD - s/p course of antibiotics - appears stable, clinically improving continue monitor
--- NOTE | 2017-08-29 14:00 | PN ---
Progress Note, Physician History of Present Illness: Ambulating with walker assistance at baseline [place]. Underwent HD via right PC TTHS - Current Medication List Current Medications: Active Medications Acetaminophen (Tylenol -) 325 mg PO Q8H PRN PRN Reason: PAIN Last Admin: 08/29/17 13:09 Dose: 325 mg Acetaminophen (Tylenol -) 650 mg PO Q4H PRN PRN Reason: FEVER OR PAIN Albuterol Sulfate (Ventolin Hfa Inhaler -) 1 puff IH Q6H PRN PRN Reason: SHORT OF BREATH/WHEEZING Atorvastatin Calcium (Lipitor -) 20 mg PO HS [facility] Last Admin: 08/28/17 21:16 Dose: 20 mg Budesonide/Formoterol Fumarate (Symbicort 160/4.5mcg -) 1 puff IH DAILY [facility] Last Admin: 08/29/17 13:07 Dose: 1 puff Calcium Carbonate (Calcium Carb Oral Suspension -) 500 mg PO DAILY [facility] Last Admin: 08/29/17 13:05 Dose: 500 mg Carvedilol (Coreg -) 12.5 mg PO BID [facility] Last Admin: 08/29/17 13:04 Dose: 12.5 mg Fluticasone Propionate (Flonase -) 1 spray NS BID [facility] Last Admin: 08/29/17 13:06 Dose: 1 spray Furosemide (Lasix -) 80 mg PO ONCE ONE Stop: 08/29/17 16:01 Montelukast Sodium (Singulair -) 10 mg PO HS [facility] Last Admin: 08/28/17 21:16 Dose: 10 mg Ondansetron HCl (Zofran Injection) 4 mg IVPUSH Q4H PRN PRN Reason: NAUSEA AND/OR VOMITING Oxycodone HCl (Roxicodone -) 5 mg PO Q8H PRN PRN Reason: PAIN Last Admin: 08/29/17 13:08 Dose: 5 mg Pancrelipase (Creon Dr 36,000 Units Capsule) 1 cap PO TIDCM [facility] Last Admin: 08/29/17 13:08 Dose: 1 cap Pantoprazole Sodium (Protonix -) 40 mg PO DAILY [facility] Last Admin: 08/29/17 13:04 Dose: 40 mg Saliva Substitute (Mouthkote Solution -) 1 applic MM DAILY [facility] Last Admin: 08/29/17 13:11 Dose: 1 applic Tamsulosin HCl (Flomax -) 0.4 mg PO HS [facility] Last Admin: 08/28/17 21:16 Dose: 0.4 mg Tiotropium [place] (Spiriva -) 1 puff IH DAILY [facility] Last Admin: 08/29/17 13:06 Dose: 1 puff Trazodone HCl (Desyrel -) 100 mg PO HS [facility] Last Admin: 08/28/17 21:16 Dose: 100 mg Zolpidem Tartrate (Ambien -) 5 mg PO HS PRN PRN Reason: INSOMNIA Last Admin: 08/28/17 21:15 Dose: 5 mg - Objective Vital Signs: Vital Signs Temperature 98.2 F 08/29/17 08:15 Pulse Rate 68 08/29/17 12:00 Respiratory Rate 18 08/29/17 12:00 Blood Pressure 130/72 08/29/17 12:00 O2 Sat by Pulse Oximetry (%) 98 08/27/17 08:28 Constitutional: Yes: No Distress, Calm Neck: Yes: Supple Cardiovascular: Yes: Regular Rate and Rhythm Respiratory: Yes: Regular, Diminished Gastrointestinal: Yes: Normal Bowel Sounds, Soft, Abdomen, Obese Edema: Yes Edema: LLE: 1+, RLE: 1+ Labs: CBC, BMP 08/29/17 08:20 08/29/17 08:20 INR, PTT INR 1.32 (0.82-1.09) H 08/12/17 07:45 Problem List - Problems (1) Anemia Code(s): D64.9 - ANEMIA, UNSPECIFIED Qualifiers: Anemia type: due to chronic kidney disease (2) CVD (cerebrovascular disease) Code(s): I67.9 - CEREBROVASCULAR DISEASE, UNSPECIFIED (3) Hx of CABG Code(s): Z95.1 - PRESENCE OF AORTOCORONARY BYPASS GRAFT (4) Hypercholesterolemia Code(s): E78.00 - PURE HYPERCHOLESTEROLEMIA, UNSPECIFIED (5) Presence of permanent cardiac pacemaker Code(s): Z95.0 - PRESENCE OF CARDIAC PACEMAKER (6) Sick sinus syndrome Code(s): I49.5 - SICK SINUS SYNDROME (7) CHF Congestive heart failure Code(s): I50.9 - HEART FAILURE, UNSPECIFIED (8) Abdominal aortic aneurysm (AAA) Code(s): I71.4 - ABDOMINAL AORTIC ANEURYSM, WITHOUT RUPTURE Qualifiers: Presence of rupture: without rupture Qualified Code(s): I71.4 - Abdominal aortic aneurysm, without rupture (9) Ischemic colitis Code(s): K55.9 - VASCULAR DISORDER OF INTESTINE, UNSPECIFIED (10) Rectal bleeding Code(s): K62.5 - HEMORRHAGE OF ANUS AND RECTUM (11) [id number] kidney injury Code(s): N17.9 - ACUTE KIDNEY FAILURE, UNSPECIFIED; N18.9 - CHRONIC KIDNEY DISEASE, UNSPECIFIED Qualifiers: Acute renal failure type: unspecified Chronic kidney disease stage: stage 5 , not on chronic dialysis Qualified Code(s): N17.9 - Acute kidney failure, unspecified; N18.5 - Chronic kidney disease, stage 5; N18.5 - Chronic kidney disease, stage 5; N18.5 - Chronic kidney disease, stage 5; N18.5 - Chronic kidney disease, stage 5 Assessment/Plan 1. Rectal bleed, underlying diverticulitis with partial SBO with dilated small bowel loops - resolved 2. CAD s/p CABG, angina pectoris 3. Persistent AF with underlying PPM for sick sinus syndrome 4. Acute on CKD on HD 5. Hypercholesterolemia 6. CVA/TIA 7. COPD 8. TAA and AAA 9. Anemia of CKD PLAN: 1. Hemodialysis TTHS via right PC and diuresis per renal 2. Plan for AVF 3. Continue Carvedilol 12.5 bid 4. Continue Atorvastatin 20 qhs 5. Monitor CBC and transfuse PRBC as needed 6. TAA and AAA likely also needs surveillance probably not ready for intervention 7. Resume ARB next week per renal Further plans are to follow. Currently he is off Eliquis, but will need to resume systemic a/c several weeks after resolution of rectal bleed
[2017-08-29] MEDS ORDERED: FUROSEMIDE 40 MG/4 ML INJECTABLE VIAL IVPUSH ONE (16:00)
[2017-08-29] MEDS ORDERED: FUROSEMIDE 40 MG TABLET (FP) PO ONE (16:00)
[2017-08-29] MEDS ORDERED: PT OWN MED DRAWER 7, Y5N ONE ×3 (17:13→21:03)
[2017-08-29] MEDS: BENZOCAINE/MENTH/CETYLPYRD CL 1 EACH LOZENGE MM PRN (17:39)
[2017-08-29] MEDS: ALPRAZolam 0.25 MG TABLET PO PRN (18:30)
--- NOTE | 2017-08-29 19:49 | PN ---
Progress Note, Physician History of Present Illness: Pt seen and examined sitting in chair. Tolerating renal diet. On HD 3x weekly. Having bowel function. Abdomen feeling ok. Pt feeling frustrated and upset about the way he was given info on MRSA today, after sputum culture noted to be presumptively positive for that and Pseudomonas. He was able to vent a bit, and calmed down. Does not like hospital food much, but no specific GI complaints. D/ C being planned for after weekend per pt and chart. - Current Medication List Current Medications: Active Medications Acetaminophen (Tylenol -) 325 mg PO Q8H PRN PRN Reason: PAIN Last Admin: 08/29/17 13:09 Dose: 325 mg Acetaminophen (Tylenol -) 650 mg PO Q4H PRN PRN Reason: FEVER OR PAIN Albuterol Sulfate (Ventolin Hfa Inhaler -) 1 puff IH Q6H PRN PRN Reason: SHORT OF BREATH/WHEEZING Alprazolam (Xanax -) 0.5 mg PO BID PRN PRN Reason: ANXIETY Last Admin: 08/29/17 18:30 Dose: 0.5 mg Atorvastatin Calcium (Lipitor -) 20 mg PO HS [facility] Last Admin: 08/28/17 21:16 Dose: 20 mg Benzocaine/Menthol (Cepacol Lozenge -) 1 each MM PRN PRN PRN Reason: SORE THROAT Last Admin: 08/29/17 17:39 Dose: 1 each Budesonide/Formoterol Fumarate (Symbicort 160/4.5mcg -) 1 puff IH DAILY [facility] Last Admin: 08/29/17 13:07 Dose: 1 puff Calcium Carbonate (Calcium Carb Oral Suspension -) 500 mg PO DAILY [facility] Last Admin: 08/29/17 13:05 Dose: 500 mg Carvedilol (Coreg -) 12.5 mg PO BID [facility] Last Admin: 08/29/17 13:04 Dose: 12.5 mg Fluticasone Propionate (Flonase -) 1 spray NS BID [facility] Last Admin: 08/29/17 13:06 Dose: 1 spray Montelukast Sodium (Singulair -) 10 mg PO HS [facility] Last Admin: 08/28/17 21:16 Dose: 10 mg Ondansetron HCl (Zofran Injection) 4 mg IVPUSH Q4H PRN PRN Reason: NAUSEA AND/OR VOMITING Oxycodone HCl (Roxicodone -) 5 mg PO Q8H PRN PRN Reason: PAIN Last Admin: 08/29/17 13:08 Dose: 5 mg Pancrelipase (Creon Dr 36,000 Units Capsule) 1 cap PO TIDCM [facility] Last Admin: 08/29/17 17:39 Dose: 1 cap Pantoprazole Sodium (Protonix -) 40 mg PO DAILY [facility] Last Admin: 08/29/17 13:04 Dose: 40 mg Saliva Substitute (Mouthkote Solution -) 1 applic MM DAILY [facility] Last Admin: 08/29/17 13:11 Dose: 1 applic Tamsulosin HCl (Flomax -) 0.4 mg PO HS [facility] Last Admin: 08/28/17 21:16 Dose: 0.4 mg Tiotropium [place] (Spiriva -) 1 puff IH DAILY [facility] Last Admin: 08/29/17 13:06 Dose: 1 puff Trazodone HCl (Desyrel -) 100 mg PO HS [facility] Last Admin: 08/28/17 21:16 Dose: 100 mg Zolpidem Tartrate (Ambien -) 5 mg PO HS PRN PRN Reason: INSOMNIA Last Admin: 08/28/17 21:15 Dose: 5 mg - Objective Vital Signs: Vital Signs Temperature 98.6 F 08/29/17 14:20 Pulse Rate 75 08/29/17 14:20 Respiratory Rate 18 08/29/17 14:20 Blood Pressure 133/77 08/29/17 14:20 O2 Sat by Pulse Oximetry (%) 98 08/27/17 08:28 Constitutional: Yes: Well Nourished, No Distress, Anxious Eyes: Yes: Conjunctiva Clear, EOM Intact HENT: Yes: Atraumatic, Normocephalic Neck: Yes: Supple, Trachea Midline Gastrointestinal: Yes: Soft, Abdomen, Obese, Distention (softly). No: Tenderness ...Rectal Exam: Yes: Deferred Extremities: No: Cool, Cyanosis Integumentary: No: Jaundice, Rash Neurological: Yes: Alert, Oriented Psychiatric: Yes: Alert, Oriented Labs: CBC, BMP 08/29/17 08:20 08/29/17 08:20 Microbiology 08/28/17 09:20 Gram Stain - Final Sputum - Expectorated Sputum Culture - Preliminary Presumptive Ps Aeruginosa Presumptive [place] (Pbp2a Pos) Problem List - Problems (1) Partial small bowel obstruction Assessment/Plan: obstruction resolved, tolerating diet + bowel function awaiting discharge likely after holiday weekend will follow peripherally Code(s): K56.600 - PARTIAL INTESTINAL OBSTRUCTION, UNSPECIFIED TO CAUSE (2) Diverticulosis large intestine w/o perforation or abscess w/bleeding Assessment/Plan: bleeding resolved eliquis on hold for heart until safe to resume from GI standpoint Code(s): K57.31 - DVRTCLOS OF LG INT W/O PERFORATION OR ABSCESS W BLEEDING (3) Chronic kidney disease with end stage renal failure on dialysis Assessment/Plan: on HD Thu//Thu s/p permacath Code(s): N18.6 - END STAGE RENAL DISEASE; Z99.2 - DEPENDENCE ON RENAL DIALYSIS (4) Aortic valve prosthesis present Code(s): Z95.2 - PRESENCE OF PROSTHETIC HEART VALVE
[2017-08-29] MEDS: MONTELUKAST NA 10 MG TABLET PO SCH (21:05)
[2017-08-29] MEDS: ZOLPIDEM TARTRATE 5 MG TABLET PO PRN (21:05)
[2017-08-29] MEDS: traZODone HCL 50 MG TABLET (FP) PO SCH (21:05)
[2017-08-29] MEDS: TAMSULOSIN HCL 0.4 MG CAP.ER.24H (FP) PO SCH (21:05)
[2017-08-29] MEDS: ATORVASTATIN CA 20 MG TABLET (FP) PO SCH (21:05)
[2017-08-30] MEDS: LIPASE/PROTEASE/AMYLASE 36,000 UNIT CAPSULE PO SCH ×3 (08:00→17:39)
[2017-08-30] MEDS: CALCIUM CARBONATE SUSPENSION - 500 MG/5 ML ML PO SCH (09:46)
[2017-08-30] MEDS: CARVEDILOL 12.5 MG TABLET (FP) PO SCH ×2 (09:46→21:06)
[2017-08-30] MEDS: PANTOPRAZOLE 40 MG TABLET (FP) PO SCH (09:46)
[2017-08-30] MEDS: TIOTROPIUM BROMIDE 18 MCG/INH (DEVICE W/ 5 CAPSULES) IH SCH (09:48)
[2017-08-30] MEDS: BUDESONIDE/FORMETEROL FUMARATE 160/4.5 mcg INHALER IH SCH (09:49)
[2017-08-30] MEDS: LYTES/YERBA SANTA 240 ML BOTTLE MM SCH (09:50)
[2017-08-30] MEDS: FLUTICASONE PROP 0.05% 16 GM NASAL SPRAY NS SCH ×2 (09:50→21:07)
--- NOTE | 2017-08-30 10:28 | PN ---
Progress Note (short form) - Note Progress Note: RENAL Pt is awake and alert comfortable says he feels well but is unhappy that people wear gowns to go see him Last Vital Signs Temp Pulse Resp BP Pulse Ox 98.4 F 70 20 119/72 98 08/30/17 09:19 08/30/17 09:19 08/30/17 09:19 08/30/17 09:19 08/27/17 08:28 Lungs clear cvs s1s2 rr abd soft ext +3 edema neuro a+ox3 CBC, BMP 08/29/17 08:20 08/29/17 08:20 Current Medications Generic Name Dose Route Start Last Admin Trade Name Freq PRN Reason Stop Dose Admin Acetaminophen 325 mg 08/28/17 17:32 08/29/17 13:09 Tylenol - PO 325 mg Q8H PRN Administration PAIN Acetaminophen 650 mg 08/28/17 17:35 Tylenol - PO Q4H PRN FEVER OR PAIN Albuterol Sulfate 1 puff 08/25/17 17:58 Ventolin Hfa Inhaler - IH Q6H PRN SHORT OF BREATH/WHEEZING Alprazolam 0.5 mg 08/29/17 18:10 08/29/17 18:30 Xanax - PO 0.5 mg BID PRN Administration ANXIETY Atorvastatin Calcium 20 mg 08/25/17 22:00 08/29/17 21:05 Lipitor - PO 20 mg HS [facility] Administration Benzocaine/Menthol 1 each 08/29/17 17:11 08/29/17 17:39 Cepacol Lozenge - MM 1 each PRN PRN Administration SORE THROAT Budesonide/Formoterol Fumarate 1 puff 08/26/17 10:00 08/30/17 09:49 Symbicort 160/4.5mcg - IH 1 puff DAILY [facility] Administration Calcium Carbonate 500 mg 08/26/17 10:00 08/30/17 09:46 Calcium Carb Oral Suspension - PO 500 mg DAILY [facility] Administration Carvedilol 12.5 mg 08/25/17 22:00 08/30/17 09:46 Coreg - PO 12.5 mg BID [facility] Administration Fluticasone Propionate 1 spray 08/25/17 22:00 08/30/17 09:50 Flonase - NS 1 spray BID [facility] Administration Montelukast Sodium 10 mg 08/25/17 22:00 08/29/17 21:05 Singulair - PO 10 mg HS [facility] Administration Ondansetron HCl 4 mg 08/25/17 17:58 Zofran Injection IVPUSH Q4H PRN NAUSEA AND/OR VOMITING Oxycodone HCl 5 mg 08/28/17 17:32 08/29/17 21:05 Roxicodone - PO 5 mg Q8H PRN Administration PAIN Pancrelipase 1 cap 08/26/17 08:00 08/30/17 08:00 [place] 36,000 Units Capsule PO 1 cap TIDCM [facility] Administration Pantoprazole Sodium 40 mg 08/29/17 10:00 08/30/17 09:46 Protonix - PO 40 mg DAILY [facility] Administration Saliva Substitute 1 applic 08/26/17 10:00 08/30/17 09:50 Mouthkote Solution - MM 1 applic DAILY [facility] Administration Tamsulosin HCl 0.4 mg 08/25/17 22:00 08/29/17 21:05 Flomax - PO 0.4 mg HS [facility] Administration Tiotropium [place] 1 puff 08/26/17 10:00 08/30/17 09:48 Spiriva - IH 1 puff DAILY [facility] Administration Trazodone HCl 100 mg 08/25/17 22:00 08/29/17 21:05 Desyrel - PO 100 mg HS [facility] Administration Zolpidem Tartrate 5 mg 08/28/17 22:00 08/29/17 21:05 Ambien - PO 5 mg HS PRN Administration INSOMNIA Impression 1. ESRD with associated fluid overload 2. ALAN 3. anemia 4. GI bleed 5. BPH 6. a-fib 7. aortic aneurysm 8. COPD 9. insomnia 10. SBO Plan - will give a dose of lasix again today and some metolazone - monitor lytes - pt will still need a fistula. Has had progressive CKD over 5 to 6 years - venofer with HD MV
[2017-08-30] MEDS ORDERED: FUROSEMIDE 40 MG TABLET (FP) PO ONE (11:20)
[2017-08-30] MEDS ORDERED: METOLAZONE 2.5 MG TABLET (FP) PO ONE (12:00)
--- NOTE | 2017-08-30 12:46 | PN ---
Progress Note, Physician Chief Complaint: Feels better History of Present Illness: Had dialysis 3days Feels better - Current Medication List Current Medications: Active Medications Acetaminophen (Tylenol -) 325 mg PO Q8H PRN PRN Reason: PAIN Last Admin: 08/29/17 13:09 Dose: 325 mg Acetaminophen (Tylenol -) 650 mg PO Q4H PRN PRN Reason: FEVER OR PAIN Albuterol Sulfate (Ventolin Hfa Inhaler -) 1 puff IH Q6H PRN PRN Reason: SHORT OF BREATH/WHEEZING Alprazolam (Xanax -) 0.5 mg PO BID PRN PRN Reason: ANXIETY Last Admin: 08/29/17 18:30 Dose: 0.5 mg Atorvastatin Calcium (Lipitor -) 20 mg PO [facility] Last Admin: 08/29/17 21:05 Dose: 20 mg Benzocaine/Menthol (Cepacol Lozenge -) 1 each MM PRN PRN PRN Reason: SORE THROAT Last Admin: 08/29/17 17:39 Dose: 1 each Budesonide/Formoterol Fumarate (Symbicort 160/4.5mcg -) 1 puff IH DAILY [facility] Last Admin: 08/30/17 09:49 Dose: 1 puff Calcium Carbonate (Calcium Carb Oral Suspension -) 500 mg PO DAILY [facility] Last Admin: 08/30/17 09:46 Dose: 500 mg Carvedilol (Coreg -) 12.5 mg PO BID [facility] Last Admin: 08/30/17 09:46 Dose: 12.5 mg Fluticasone Propionate (Flonase -) 1 spray NS BID [facility] Last Admin: 08/30/17 09:50 Dose: 1 spray Montelukast Sodium (Singulair -) 10 mg PO HS [facility] Last Admin: 08/29/17 21:05 Dose: 10 mg Ondansetron HCl (Zofran Injection) 4 mg IVPUSH Q4H PRN PRN Reason: NAUSEA AND/OR VOMITING Oxycodone HCl (Roxicodone -) 5 mg PO Q8H PRN PRN Reason: PAIN Last Admin: 08/29/17 21:05 Dose: 5 mg Pancrelipase (Creon Dr 36,000 Units Capsule) 1 cap PO TIDCM [facility] Last Admin: 08/30/17 11:57 Dose: 1 cap Pantoprazole Sodium (Protonix -) 40 mg PO DAILY [facility] Last Admin: 08/30/17 09:46 Dose: 40 mg Saliva Substitute (Mouthkote Solution -) 1 applic MM DAILY [facility] Last Admin: 08/30/17 09:50 Dose: 1 applic Tamsulosin HCl (Flomax -) 0.4 mg PO HS [facility] Last Admin: 08/29/17 21:05 Dose: 0.4 mg Tiotropium [place] (Spiriva -) 1 puff IH DAILY [facility] Last Admin: 08/30/17 09:48 Dose: 1 puff Trazodone HCl (Desyrel -) 100 mg PO HS [facility] Last Admin: 08/29/17 21:05 Dose: 100 mg Zolpidem Tartrate (Ambien -) 5 mg PO HS PRN PRN Reason: INSOMNIA Last Admin: 08/29/17 21:05 Dose: 5 mg - Objective Vital Signs: Vital Signs Temperature 98.4 F 08/30/17 09:19 Pulse Rate 70 08/30/17 09:19 Respiratory Rate 20 08/30/17 09:19 Blood Pressure 119/72 08/30/17 09:19 O2 Sat by Pulse Oximetry (%) 98 08/27/17 08:28 Constitutional: Yes: No Distress Eyes: Yes: WNL HENT: Yes: WNL Neck: Yes: WNL Cardiovascular: Yes: Regular Rate and Rhythm Respiratory: Yes: WNL Gastrointestinal: Yes: Normal Bowel Sounds Genitourinary: Yes: Oliguria Edema: LLE: 1+, RLE: 1+ Labs: CBC, BMP 08/29/17 08:20 08/29/17 08:20 INR, PTT INR 1.32 (0.82-1.09) H 08/12/17 07:45 Assessment/Plan Continue same trt
--- NOTE | 2017-08-30 13:00 | PN ---
Progress Note, Physician History of Present Illness: Tolerating diet, continued peripheral edema despite HD via right PC TTHS and diuretics. - Current Medication List Current Medications: Active Medications Acetaminophen (Tylenol -) 325 mg PO Q8H PRN PRN Reason: PAIN Last Admin: 08/29/17 13:09 Dose: 325 mg Acetaminophen (Tylenol -) 650 mg PO Q4H PRN PRN Reason: FEVER OR PAIN Albuterol Sulfate (Ventolin Hfa Inhaler -) 1 puff IH Q6H PRN PRN Reason: SHORT OF BREATH/WHEEZING Alprazolam (Xanax -) 0.5 mg PO BID PRN PRN Reason: ANXIETY Last Admin: 08/29/17 18:30 Dose: 0.5 mg Atorvastatin Calcium (Lipitor -) 20 mg PO [facility] Last Admin: 08/29/17 21:05 Dose: 20 mg Benzocaine/Menthol (Cepacol Lozenge -) 1 each MM PRN PRN PRN Reason: SORE THROAT Last Admin: 08/29/17 17:39 Dose: 1 each Budesonide/Formoterol Fumarate (Symbicort 160/4.5mcg -) 1 puff IH DAILY [facility] Last Admin: 08/30/17 09:49 Dose: 1 puff Calcium Carbonate (Calcium Carb Oral Suspension -) 500 mg PO DAILY [facility] Last Admin: 08/30/17 09:46 Dose: 500 mg Carvedilol (Coreg -) 12.5 mg PO BID [facility] Last Admin: 08/30/17 09:46 Dose: 12.5 mg Fluticasone Propionate (Flonase -) 1 spray NS BID [facility] Last Admin: 08/30/17 09:50 Dose: 1 spray Montelukast Sodium (Singulair -) 10 mg PO HS [facility] Last Admin: 08/29/17 21:05 Dose: 10 mg Ondansetron HCl (Zofran Injection) 4 mg IVPUSH Q4H PRN PRN Reason: NAUSEA AND/OR VOMITING Oxycodone HCl (Roxicodone -) 5 mg PO Q8H PRN PRN Reason: PAIN Last Admin: 08/29/17 21:05 Dose: 5 mg Pancrelipase (Creon Dr 36,000 Units Capsule) 1 cap PO TIDCM [facility] Last Admin: 08/30/17 11:57 Dose: 1 cap Pantoprazole Sodium (Protonix -) 40 mg PO DAILY [facility] Last Admin: 08/30/17 09:46 Dose: 40 mg Saliva Substitute (Mouthkote Solution -) 1 applic MM DAILY [facility] Last Admin: 08/30/17 09:50 Dose: 1 applic Tamsulosin HCl (Flomax -) 0.4 mg PO HS [facility] Last Admin: 08/29/17 21:05 Dose: 0.4 mg Tiotropium [place] (Spiriva -) 1 puff IH DAILY [facility] Last Admin: 08/30/17 09:48 Dose: 1 puff Trazodone HCl (Desyrel -) 100 mg PO HS [facility] Last Admin: 08/29/17 21:05 Dose: 100 mg Zolpidem Tartrate (Ambien -) 5 mg PO HS PRN PRN Reason: INSOMNIA Last Admin: 08/29/17 21:05 Dose: 5 mg - Objective Vital Signs: Vital Signs Temperature 98.4 F 08/30/17 09:19 Pulse Rate 70 08/30/17 09:19 Respiratory Rate 20 08/30/17 09:19 Blood Pressure 119/72 08/30/17 09:19 O2 Sat by Pulse Oximetry (%) 98 08/27/17 08:28 Constitutional: Yes: No Distress, Calm Neck: Yes: Supple Cardiovascular: Yes: Regular Rate and Rhythm Respiratory: Yes: Regular, Diminished Gastrointestinal: Yes: Normal Bowel Sounds, Soft Edema: Yes Edema: LLE: 2+, RLE: 2+ Labs: CBC, BMP 08/29/17 08:20 08/29/17 08:20 INR, PTT INR 1.32 (0.82-1.09) H 08/12/17 07:45 Problem List - Problems (1) Anemia Code(s): D64.9 - ANEMIA, UNSPECIFIED Qualifiers: Anemia type: due to chronic kidney disease (2) CVD (cerebrovascular disease) Code(s): I67.9 - CEREBROVASCULAR DISEASE, UNSPECIFIED (3) Hx of CABG Code(s): Z95.1 - PRESENCE OF AORTOCORONARY BYPASS GRAFT (4) Hypercholesterolemia Code(s): E78.00 - PURE HYPERCHOLESTEROLEMIA, UNSPECIFIED (5) Presence of permanent cardiac pacemaker Code(s): Z95.0 - PRESENCE OF CARDIAC PACEMAKER (6) Sick sinus syndrome Code(s): I49.5 - SICK SINUS SYNDROME (7) CHF Congestive heart failure Code(s): I50.9 - HEART FAILURE, UNSPECIFIED (8) Abdominal aortic aneurysm (AAA) Code(s): I71.4 - ABDOMINAL AORTIC ANEURYSM, WITHOUT RUPTURE Qualifiers: Presence of rupture: without rupture Qualified Code(s): I71.4 - Abdominal aortic aneurysm, without rupture (9) Ischemic colitis Code(s): K55.9 - VASCULAR DISORDER OF INTESTINE, UNSPECIFIED (10) Rectal bleeding Code(s): K62.5 - HEMORRHAGE OF ANUS AND RECTUM (11) [id number] kidney injury Code(s): N17.9 - ACUTE KIDNEY FAILURE, UNSPECIFIED; N18.9 - CHRONIC KIDNEY DISEASE, UNSPECIFIED Qualifiers: Acute renal failure type: unspecified Chronic kidney disease stage: stage 5 , not on chronic dialysis Qualified Code(s): N17.9 - Acute kidney failure, unspecified; N18.5 - Chronic kidney disease, stage 5; N18.5 - Chronic kidney disease, stage 5; N18.5 - Chronic kidney disease, stage 5; N18.5 - Chronic kidney disease, stage 5 Assessment/Plan 1. Rectal bleed, underlying diverticulitis with partial SBO with dilated small bowel loops - resolved 2. CAD s/p CABG, angina pectoris 3. Persistent AF with underlying PPM for sick sinus syndrome 4. Acute on CKD on HD 5. Hypercholesterolemia 6. CVA/TIA 7. COPD 8. TAA and AAA 9. Anemia of CKD PLAN: 1. Hemodialysis TTHS via right PC and diuresis per renal 2. Plan for AVF 3. Continue Carvedilol 12.5 bid 4. Continue Atorvastatin 20 qhs 5. Monitor CBC and transfuse PRBC as needed 6. TAA and AAA likely also needs surveillance probably not ready for intervention 7. Resume ARB next week per renal 8. Compression therapy with GABE wraps Further plans are to follow. Currently he is off Eliquis, but will need to resume systemic a/c several weeks after resolution of rectal bleed
--- NOTE | 2017-08-30 13:07 | PN ---
Progress Note, Physician - Current Medication List Current Medications: Active Medications Acetaminophen (Tylenol -) 325 mg PO Q8H PRN PRN Reason: PAIN Last Admin: 08/29/17 13:09 Dose: 325 mg Acetaminophen (Tylenol -) 650 mg PO Q4H PRN PRN Reason: FEVER OR PAIN Albuterol Sulfate (Ventolin Hfa Inhaler -) 1 puff IH Q6H PRN PRN Reason: SHORT OF BREATH/WHEEZING Alprazolam (Xanax -) 0.5 mg PO BID PRN PRN Reason: ANXIETY Last Admin: 08/29/17 18:30 Dose: 0.5 mg Atorvastatin Calcium (Lipitor -) 20 mg PO [facility] Last Admin: 08/29/17 21:05 Dose: 20 mg Benzocaine/Menthol (Cepacol Lozenge -) 1 each MM PRN PRN PRN Reason: SORE THROAT Last Admin: 08/29/17 17:39 Dose: 1 each Budesonide/Formoterol Fumarate (Symbicort 160/4.5mcg -) 1 puff IH DAILY [facility] Last Admin: 08/30/17 09:49 Dose: 1 puff Calcium Carbonate (Calcium Carb Oral Suspension -) 500 mg PO DAILY [facility] Last Admin: 08/30/17 09:46 Dose: 500 mg Carvedilol (Coreg -) 12.5 mg PO BID [facility] Last Admin: 08/30/17 09:46 Dose: 12.5 mg Fluticasone Propionate (Flonase -) 1 spray NS BID [facility] Last Admin: 08/30/17 09:50 Dose: 1 spray Montelukast Sodium (Singulair -) 10 mg PO [facility] Last Admin: 08/29/17 21:05 Dose: 10 mg Ondansetron HCl (Zofran Injection) 4 mg IVPUSH Q4H PRN PRN Reason: NAUSEA AND/OR VOMITING Oxycodone HCl (Roxicodone -) 5 mg PO Q8H PRN PRN Reason: PAIN Last Admin: 08/29/17 21:05 Dose: 5 mg Pancrelipase (Creon Dr 36,000 Units Capsule) 1 cap PO TIDCM [facility] Last Admin: 08/30/17 11:57 Dose: 1 cap Pantoprazole Sodium (Protonix -) 40 mg PO DAILY [facility] Last Admin: 08/30/17 09:46 Dose: 40 mg Saliva Substitute (Mouthkote Solution -) 1 applic MM DAILY [facility] Last Admin: 08/30/17 09:50 Dose: 1 applic Tamsulosin HCl (Flomax -) 0.4 mg PO HS [facility] Last Admin: 08/29/17 21:05 Dose: 0.4 mg Tiotropium [place] (Spiriva -) 1 puff IH DAILY [facility] Last Admin: 08/30/17 09:48 Dose: 1 puff Trazodone HCl (Desyrel -) 100 mg PO HS [facility] Last Admin: 08/29/17 21:05 Dose: 100 mg Zolpidem Tartrate (Ambien -) 5 mg PO HS PRN PRN Reason: INSOMNIA Last Admin: 08/29/17 21:05 Dose: 5 mg - Objective Vital Signs: Vital Signs Temperature 98.4 F 08/30/17 09:19 Pulse Rate 70 08/30/17 09:19 Respiratory Rate 20 08/30/17 09:19 Blood Pressure 119/72 08/30/17 09:19 O2 Sat by Pulse Oximetry (%) 98 08/27/17 08:28 Labs: CBC, BMP 08/29/17 08:20 08/29/17 08:20 INR, PTT INR 1.32 (0.82-1.09) H 08/12/17 07:45
--- NOTE | 2017-08-30 13:08 | PN ---
Progress Note, Physician History of Present Illness: Pt is doing well today. Denies shortness of breath or cough. Remains afebrile. No new complaints. - Current Medication List Current Medications: Active Medications Acetaminophen (Tylenol -) 325 mg PO Q8H PRN PRN Reason: PAIN Last Admin: 08/29/17 13:09 Dose: 325 mg Acetaminophen (Tylenol -) 650 mg PO Q4H PRN PRN Reason: FEVER OR PAIN Albuterol Sulfate (Ventolin Hfa Inhaler -) 1 puff IH Q6H PRN PRN Reason: SHORT OF BREATH/WHEEZING Alprazolam (Xanax -) 0.5 mg PO BID PRN PRN Reason: ANXIETY Last Admin: 08/29/17 18:30 Dose: 0.5 mg Atorvastatin Calcium (Lipitor -) 20 mg PO [facility] Last Admin: 08/29/17 21:05 Dose: 20 mg Benzocaine/Menthol (Cepacol Lozenge -) 1 each MM PRN PRN PRN Reason: SORE THROAT Last Admin: 08/29/17 17:39 Dose: 1 each Budesonide/Formoterol Fumarate (Symbicort 160/4.5mcg -) 1 puff IH DAILY [facility] Last Admin: 08/30/17 09:49 Dose: 1 puff Calcium Carbonate (Calcium Carb Oral Suspension -) 500 mg PO DAILY [facility] Last Admin: 08/30/17 09:46 Dose: 500 mg Carvedilol (Coreg -) 12.5 mg PO BID [facility] Last Admin: 08/30/17 09:46 Dose: 12.5 mg Fluticasone Propionate (Flonase -) 1 spray NS BID [facility] Last Admin: 08/30/17 09:50 Dose: 1 spray Montelukast Sodium (Singulair -) 10 mg PO HS [facility] Last Admin: 08/29/17 21:05 Dose: 10 mg Ondansetron HCl (Zofran Injection) 4 mg IVPUSH Q4H PRN PRN Reason: NAUSEA AND/OR VOMITING Oxycodone HCl (Roxicodone -) 5 mg PO Q8H PRN PRN Reason: PAIN Last Admin: 08/29/17 21:05 Dose: 5 mg Pancrelipase (Creon Dr 36,000 Units Capsule) 1 cap PO TIDCM [facility] Last Admin: 08/30/17 11:57 Dose: 1 cap Pantoprazole Sodium (Protonix -) 40 mg PO DAILY [facility] Last Admin: 08/30/17 09:46 Dose: 40 mg Saliva Substitute (Mouthkote Solution -) 1 applic MM DAILY [facility] Last Admin: 08/30/17 09:50 Dose: 1 applic Tamsulosin HCl (Flomax -) 0.4 mg PO HS [facility] Last Admin: 08/29/17 21:05 Dose: 0.4 mg Tiotropium [place] (Spiriva -) 1 puff IH DAILY [facility] Last Admin: 08/30/17 09:48 Dose: 1 puff Trazodone HCl (Desyrel -) 100 mg PO HS [facility] Last Admin: 08/29/17 21:05 Dose: 100 mg Zolpidem Tartrate (Ambien -) 5 mg PO HS PRN PRN Reason: INSOMNIA Last Admin: 08/29/17 21:05 Dose: 5 mg - Objective Vital Signs: Vital Signs Temperature 98.4 F 08/30/17 09:19 Pulse Rate 70 08/30/17 09:19 Respiratory Rate 20 08/30/17 09:19 Blood Pressure 119/72 08/30/17 09:19 O2 Sat by Pulse Oximetry (%) 98 08/27/17 08:28 Constitutional: Yes: No Distress, Calm Cardiovascular: Yes: Regular Rate and Rhythm Respiratory: Yes: Rales (minimal basilar) Gastrointestinal: Yes: Normal Bowel Sounds, Soft Musculoskeletal: Yes: WNL Integumentary: Yes: WNL Neurological: Yes: Alert, Oriented Labs: CBC, BMP 08/29/17 08:20 08/29/17 08:20 INR, PTT INR 1.32 (0.82-1.09) H 08/12/17 07:45 Microbiology 08/28/17 09:20 Sputum - Expectorated Gram Stain - Final 08/28/17 09:20 Sputum - Expectorated Sputum Culture - Preliminary Pseudomonas Aeruginosa Presumptive Mrsa (Pbp2a Pos) Problem List - Problems (1) Acute diverticulitis Code(s): K57.92 - DVTRCLI OF INTEST, PART UNSP, W/O PERF OR ABSCESS W/O BLEED (2) CKD (chronic kidney disease) Code(s): N18.9 - CHRONIC KIDNEY DISEASE, UNSPECIFIED Qualifiers: Qualified Code(s): N18.4 - Chronic kidney disease, stage 4 (severe) (3) Rectal bleeding Code(s): K62.5 - HEMORRHAGE OF ANUS AND RECTUM (4) CHF (congestive heart failure) Code(s): I50.9 - HEART FAILURE, UNSPECIFIED Qualifiers: Qualified Code(s): I50.43 - Acute on chronic combined systolic (congestive) and diastolic (congestive) heart failure (5) SBO (small bowel obstruction) Code(s): K56.609 - UNSP INTESTNL OBST, UNSP TO PARTIAL VERSUS COMPLETE OBST Assessment/Plan Pt with resolved diverticulitis SBO, CKD now on HD - s/p course of antibiotics - no s/s of PNA at this time, continue monitor - appears stable, clinically improving
[2017-08-30] MEDS: ALPRAZolam 0.25 MG TABLET PO PRN (15:56)
[2017-08-30] MEDS: oxyCODONE HCL 5 MG TABLET PO PRN (21:06)
[2017-08-30] MEDS: ATORVASTATIN CA 20 MG TABLET (FP) PO SCH (21:06)
[2017-08-30] MEDS: TAMSULOSIN HCL 0.4 MG CAP.ER.24H (FP) PO SCH (21:06)
[2017-08-30] MEDS: ZOLPIDEM TARTRATE 5 MG TABLET PO PRN (21:06)
[2017-08-30] MEDS: traZODone HCL 50 MG TABLET (FP) PO SCH (21:07)
[2017-08-30] MEDS: MONTELUKAST NA 10 MG TABLET PO SCH (21:07)
[2017-08-31] MEDS: LIPASE/PROTEASE/AMYLASE 36,000 UNIT CAPSULE PO SCH ×3 (08:37→17:08)
[2017-08-31] MEDS ORDERED: PT OWN MED DRAWER 7, Y5N ONE ×2 (09:36→16:59)
[2017-08-31] MEDS: CALCIUM CARBONATE SUSPENSION - 500 MG/5 ML ML PO SCH (09:39)
[2017-08-31] MEDS: BUDESONIDE/FORMETEROL FUMARATE 160/4.5 mcg INHALER IH SCH (09:39)
[2017-08-31] MEDS: LYTES/YERBA SANTA 240 ML BOTTLE MM SCH (09:40)
[2017-08-31] MEDS: CARVEDILOL 12.5 MG TABLET (FP) PO SCH ×2 (09:40→21:23)
[2017-08-31] MEDS: PANTOPRAZOLE 40 MG TABLET (FP) PO SCH (09:40)
--- NOTE | 2017-08-31 10:50 | PN ---
Progress Note, Physician History of Present Illness: patient doing well no complaints patient main issue is bilateral swelling of the leg no cough no fever - Current Medication List Current Medications: Active Medications Acetaminophen (Tylenol -) 325 mg PO Q8H PRN PRN Reason: PAIN Last Admin: 08/29/17 13:09 Dose: 325 mg Acetaminophen (Tylenol -) 650 mg PO Q4H PRN PRN Reason: FEVER OR PAIN Albuterol Sulfate (Ventolin Hfa Inhaler -) 1 puff IH Q6H PRN PRN Reason: SHORT OF BREATH/WHEEZING Alprazolam (Xanax -) 0.5 mg PO BID PRN PRN Reason: ANXIETY Last Admin: 08/30/17 15:56 Dose: 0.5 mg Atorvastatin Calcium (Lipitor -) 20 mg PO [facility] Last Admin: 08/30/17 21:06 Dose: 20 mg Benzocaine/Menthol (Cepacol Lozenge -) 1 each MM PRN PRN PRN Reason: SORE THROAT Last Admin: 08/29/17 17:39 Dose: 1 each Budesonide/Formoterol Fumarate (Symbicort 160/4.5mcg -) 1 puff IH DAILY [facility] Last Admin: 08/31/17 09:39 Dose: 1 puff Calcium Carbonate (Calcium Carb Oral Suspension -) 500 mg PO DAILY [facility] Last Admin: 08/31/17 09:39 Dose: 500 mg Carvedilol (Coreg -) 12.5 mg PO BID [facility] Last Admin: 08/31/17 09:40 Dose: 12.5 mg Fluticasone Propionate (Flonase -) 1 spray NS BID [facility] Last Admin: 08/30/17 21:07 Dose: 1 spray Montelukast Sodium (Singulair -) 10 mg PO HS [facility] Last Admin: 08/30/17 21:07 Dose: 10 mg Ondansetron HCl (Zofran Injection) 4 mg IVPUSH Q4H PRN PRN Reason: NAUSEA AND/OR VOMITING Oxycodone HCl (Roxicodone -) 5 mg PO Q8H PRN PRN Reason: PAIN Last Admin: 08/30/17 21:06 Dose: 5 mg Pancrelipase (Creon Dr 36,000 Units Capsule) 1 cap PO TIDCM [facility] Last Admin: 08/31/17 08:37 Dose: 1 cap Pantoprazole Sodium (Protonix -) 40 mg PO DAILY [facility] Last Admin: 08/31/17 09:40 Dose: 40 mg Saliva Substitute (Mouthkote Solution -) 1 applic MM DAILY [facility] Last Admin: 08/31/17 09:40 Dose: Not Given Tamsulosin HCl (Flomax -) 0.4 mg PO [facility] Last Admin: 08/30/17 21:06 Dose: 0.4 mg Tiotropium [place] (Spiriva -) 1 puff IH DAILY [facility] Last Admin: 08/30/17 09:48 Dose: 1 puff Trazodone HCl (Desyrel -) 100 mg PO [facility] Last Admin: 08/30/17 21:07 Dose: 100 mg Zolpidem Tartrate (Ambien -) 5 mg PO HS PRN PRN Reason: INSOMNIA Last Admin: 08/30/17 21:06 Dose: 5 mg - Objective Vital Signs: Vital Signs Temperature 97.8 F 08/31/17 05:39 Pulse Rate 94 H 08/31/17 05:39 Respiratory Rate 20 08/31/17 05:39 Blood Pressure 124/60 08/31/17 05:39 O2 Sat by Pulse Oximetry (%) 98 08/27/17 08:28 Constitutional: Yes: No Distress, Calm Cardiovascular: Yes: Regular Rate and Rhythm Respiratory: Yes: Regular, CTA Bilaterally Gastrointestinal: Yes: Normal Bowel Sounds, Soft Musculoskeletal: Yes: WNL Extremities: Yes: WNL Neurological: Yes: Alert, Oriented Psychiatric: Yes: Alert, Oriented Labs: CBC, BMP 08/29/17 08:20 08/29/17 08:20 INR, PTT INR 1.32 (0.82-1.09) H 08/12/17 07:45 Assessment/Plan Problem List - Problems (1) Rectal bleeding Assessment/Plan: resolved Code(s): K62.5 - HEMORRHAGE OF ANUS AND RECTUM (2) CHF (congestive heart failure) Assessment/Plan: stable no sob Code(s): I50.9 - HEART FAILURE, UNSPECIFIED Qualifiers: Congestive heart failure type: combined Congestive heart failure chronicity : acute on chronic Qualified Code(s): I50.43 - Acute on chronic combined systolic (congestive) and diastolic (congestive) heart failure (3) Acute diverticulitis Assessment/Plan: on iv abx id on board Code(s): K57.92 - DVTRCLI OF INTEST, PART UNSP, W/O PERF OR ABSCESS W/O BLEED (4) Anemia Assessment/Plan: monitor s/p prbc transfusion Code(s): D64.9 - ANEMIA, UNSPECIFIED Qualifiers: Anemia type: unspecified type Qualified Code(s): D64.9 - Anemia, unspecified (5) CKD (chronic kidney disease) Assessment/Plan: monitor...cr LITTLE BETTER on ivf...NEED FOR HD renal on board Code(s): N18.9 - CHRONIC KIDNEY DISEASE, UNSPECIFIED Qualifiers: Chronic kidney disease stage: stage 4 (severe) Qualified Code(s): N18.4 - Chronic kidney disease, stage 4 (severe) (6) CHF Congestive heart failure Code(s): I50.9 - HEART FAILURE, UNSPECIFIED (7) SBO (small bowel obstruction) Assessment/Plan: npo, ivf.. iv pain meds ngt in place as xray was worse today Code(s): K56.609 - UNSP INTESTNL OBST, UNSP TO PARTIAL VERSUS COMPLETE OBST (8) Hypercholesterolemia Code(s): E78.00 - PURE HYPERCHOLESTEROLEMIA, UNSPECIFIED patients sputum cx growing pseudomonas and mrsa,patient is probably colonized and has already been treated with zosyn plan i will start doxy for 7 days rest continue current mgmt
[2017-08-31] MEDS: TIOTROPIUM BROMIDE 18 MCG/INH (DEVICE W/ 5 CAPSULES) IH SCH (11:52)
[2017-08-31] MEDS: FLUTICASONE PROP 0.05% 16 GM NASAL SPRAY NS SCH ×2 (11:52→21:24)
[2017-08-31] MEDS ORDERED: FUROSEMIDE 40 MG TABLET (FP) PO ONE (14:15)
[2017-08-31] MEDS ORDERED: POTASSIUM CHLORIDE TABS 20 MEQ TABLET.ER (FP) PO ONE (14:17)
--- NOTE | 2017-08-31 14:22 | PN ---
Progress Note, Physician History of Present Illness: Pt seen and examined at bedside. He complains of lower ext edema. - Current Medication List Current Medications: Active Medications Acetaminophen (Tylenol -) 325 mg PO Q8H PRN PRN Reason: PAIN Last Admin: 08/29/17 13:09 Dose: 325 mg Acetaminophen (Tylenol -) 650 mg PO Q4H PRN PRN Reason: FEVER OR PAIN Albuterol Sulfate (Ventolin Hfa Inhaler -) 1 puff IH Q6H PRN PRN Reason: SHORT OF BREATH/WHEEZING Alprazolam (Xanax -) 0.5 mg PO BID PRN PRN Reason: ANXIETY Last Admin: 08/30/17 15:56 Dose: 0.5 mg Atorvastatin Calcium (Lipitor -) 20 mg PO HS [facility] Last Admin: 08/30/17 21:06 Dose: 20 mg Benzocaine/Menthol (Cepacol Lozenge -) 1 each MM PRN PRN PRN Reason: SORE THROAT Last Admin: 08/29/17 17:39 Dose: 1 each Budesonide/Formoterol Fumarate (Symbicort 160/4.5mcg -) 1 puff IH DAILY [facility] Last Admin: 08/31/17 09:39 Dose: 1 puff Calcium Carbonate (Calcium Carb Oral Suspension -) 500 mg PO DAILY [facility] Last Admin: 08/31/17 09:39 Dose: 500 mg Carvedilol (Coreg -) 12.5 mg PO BID [facility] Last Admin: 08/31/17 09:40 Dose: 12.5 mg Epoetin [place]sh[place] (Epogen -) 4,000 units IVPUSH ONCE ONE Stop: 09/01/17 14:19 Fluticasone Propionate (Flonase -) 1 spray NS BID [facility] Last Admin: 08/31/17 11:52 Dose: Not Given Iron Sucrose 100 mg/ Sodium (Chloride) 100 mls @ 200 mls/hr IVPB ONCE ONE Stop: 09/01/17 14:47 Montelukast Sodium (Singulair -) 10 mg PO HS [facility] Last Admin: 08/30/17 21:07 Dose: 10 mg Ondansetron HCl (Zofran Injection) 4 mg IVPUSH Q4H PRN PRN Reason: NAUSEA AND/OR VOMITING Oxycodone HCl (Roxicodone -) 5 mg PO Q8H PRN PRN Reason: PAIN Last Admin: 08/30/17 21:06 Dose: 5 mg Pancrelipase (Creon Dr 36,000 Units Capsule) 1 cap PO TIDCM [facility] Last Admin: 08/31/17 12:21 Dose: 1 cap Pantoprazole Sodium (Protonix -) 40 mg PO DAILY [facility] Last Admin: 08/31/17 09:40 Dose: 40 mg Potassium Chloride (K-Dur -) 20 meq PO ONCE ONE Stop: 08/31/17 14:18 Saliva Substitute (Mouthkote Solution -) 1 applic MM DAILY [facility] Last Admin: 08/31/17 09:40 Dose: Not Given Tamsulosin HCl (Flomax -) 0.4 mg PO HS [facility] Last Admin: 08/30/17 21:06 Dose: 0.4 mg Tiotropium [place] (Spiriva -) 1 puff IH DAILY [facility] Last Admin: 08/31/17 11:52 Dose: Not Given Trazodone HCl (Desyrel -) 100 mg PO HS [facility] Last Admin: 08/30/17 21:07 Dose: 100 mg Zolpidem Tartrate (Ambien -) 5 mg PO HS PRN PRN Reason: INSOMNIA Last Admin: 08/30/17 21:06 Dose: 5 mg - Objective Vital Signs: Vital Signs Temperature 97.8 F 08/31/17 05:39 Pulse Rate 94 H 08/31/17 05:39 Respiratory Rate 20 08/31/17 09:00 Blood Pressure 124/60 08/31/17 05:39 O2 Sat by Pulse Oximetry (%) 98 08/27/17 08:28 Constitutional: Yes: Calm Eyes: Yes: Conjunctiva Clear HENT: Yes: Atraumatic Cardiovascular: Yes: S1, S2 Respiratory: Yes: CTA Bilaterally Gastrointestinal: Yes: Soft Genitourinary: Yes: WNL Musculoskeletal: Yes: WNL Edema: Yes Edema: LLE: 2+, RLE: 2+ Neurological: Yes: Oriented Psychiatric: Yes: Oriented Labs: CBC, BMP 08/29/17 08:20 08/29/17 08:20 INR, PTT INR 1.32 (0.82-1.09) H 08/12/17 07:45 Problem List - Problems (1) CKD (chronic kidney disease) Code(s): N18.9 - CHRONIC KIDNEY DISEASE, UNSPECIFIED Qualifiers: Chronic kidney disease stage: stage 4 (severe) Qualified Code(s): N18.4 - Chronic kidney disease, stage 4 (severe) (2) Anemia Code(s): D64.9 - ANEMIA, UNSPECIFIED Qualifiers: Anemia type: due to chronic kidney disease (3) Abdominal pain Code(s): R10.9 - UNSPECIFIED ABDOMINAL PAIN Qualifiers: Abdominal location: unspecified location Qualified Code(s): R10.9 - Unspecified abdominal pain (4) Rectal bleeding Code(s): K62.5 - HEMORRHAGE OF ANUS AND RECTUM (5) Acute exacerbation of COPD with asthma Code(s): J44.1 - CHRONIC OBSTRUCTIVE PULMONARY DISEASE W (ACUTE) EXACERBATION; J45.901 - UNSPECIFIED ASTHMA WITH (ACUTE) EXACERBATION (6) CHF (congestive heart failure) Code(s): I50.9 - HEART FAILURE, UNSPECIFIED Qualifiers: Congestive heart failure type: combined Congestive heart failure chronicity : acute on chronic Qualified Code(s): I50.43 - Acute on chronic combined systolic (congestive) and diastolic (congestive) heart failure Assessment/Plan Current Medications Generic Name Dose Route Start Last Admin Trade Name Freq PRN Reason Stop Dose Admin Acetaminophen 325 mg 08/28/17 17:32 08/29/17 13:09 Tylenol - PO 325 mg Q8H PRN Administration PAIN Acetaminophen 650 mg 08/28/17 17:35 Tylenol - PO Q4H PRN FEVER OR PAIN Albuterol Sulfate 1 puff 08/25/17 17:58 Ventolin Hfa Inhaler - IH Q6H PRN SHORT OF BREATH/WHEEZING Alprazolam 0.5 mg 08/29/17 18:10 08/30/17 15:56 Xanax - PO 0.5 mg BID PRN Administration ANXIETY Atorvastatin Calcium 20 mg 08/25/17 22:00 08/30/17 21:06 Lipitor - PO 20 mg HS [facility] Administration Benzocaine/Menthol 1 each 08/29/17 17:11 08/29/17 17:39 Cepacol Lozenge - MM 1 each PRN PRN Administration SORE THROAT Budesonide/Formoterol Fumarate 1 puff 08/26/17 10:00 08/31/17 09:39 Symbicort 160/4.5mcg - IH 1 puff DAILY [facility] Administration Calcium Carbonate 500 mg 08/26/17 10:00 08/31/17 09:39 Calcium Carb Oral Suspension - PO 500 mg DAILY [facility] Administration Carvedilol 12.5 mg 08/25/17 22:00 08/31/17 09:40 Coreg - PO 12.5 mg BID [facility] Administration Epoetin Anshu 4,000 units 09/01/17 14:18 Epogen - IVPUSH 09/01/17 14:19 ONCE ONE Fluticasone Propionate 1 spray 08/25/17 22:00 08/31/17 11:52 Flonase - NS Not Given BID [facility] Iron Sucrose 100 mg/ Sodium 100 mls @ 200 mls/hr 09/01/17 14:18 Chloride IVPB 09/01/17 14:47 ONCE ONE Montelukast Sodium 10 mg 08/25/17 22:00 08/30/17 21:07 Singulair - PO 10 mg HS [facility] Administration Ondansetron HCl 4 mg 08/25/17 17:58 Zofran Injection IVPUSH Q4H PRN NAUSEA AND/OR VOMITING Oxycodone HCl 5 mg 08/28/17 17:32 08/30/17 21:06 Roxicodone - PO 5 mg Q8H PRN Administration PAIN Pancrelipase 1 cap 08/26/17 08:00 08/31/17 12:[address] 36,000 Units Capsule PO 1 cap TIDCM [facility] Administration Pantoprazole Sodium 40 mg 08/29/17 10:00 08/31/17 09:40 Protonix - PO 40 mg DAILY [facility] Administration Potassium Chloride 20 meq 08/31/17 14:17 K-Dur - PO 08/31/17 14:18 ONCE ONE Saliva Substitute 1 applic 08/26/17 10:00 08/31/17 09:40 Mouthkote Solution - MM Not Given DAILY [facility] Tamsulosin HCl 0.4 mg 08/25/17 22:00 08/30/17 21:06 Flomax - PO 0.4 mg HS [facility] Administration Tiotropium [place] 1 puff 08/26/17 10:00 08/31/17 11:52 Spiriva - IH Not Given DAILY [facility] Trazodone HCl 100 mg 08/25/17 22:00 08/30/17 21:07 Desyrel - PO 100 mg HS [facility] Administration Zolpidem Tartrate 5 mg 08/28/17 22:00 08/30/17 21:06 Ambien - PO 5 mg HS PRN Administration INSOMNIA Impression 1. ESRD 2. ALAN 3. anemia 4. GI bleed 5. BPH 6. a-fib 7. aortic aneurysm 8. COPD 9. insomnia 10. SBO Plan - will give dose of lasix today - HD in am - orders written - cont venofer - cont epogen - replace potassium - pt will still need a fistula - can restart low dose diovan - will follow closely Dr Ortega
--- NOTE | 2017-08-31 14:44 | PN ---
Progress Note, Physician Chief Complaint: No new complaints History of Present Illness: ESRD on dialysis - Current Medication List Current Medications: Active Medications Acetaminophen (Tylenol -) 325 mg PO Q8H PRN PRN Reason: PAIN Last Admin: 08/29/17 13:09 Dose: 325 mg Acetaminophen (Tylenol -) 650 mg PO Q4H PRN PRN Reason: FEVER OR PAIN Albuterol Sulfate (Ventolin Hfa Inhaler -) 1 puff IH Q6H PRN PRN Reason: SHORT OF BREATH/WHEEZING Alprazolam (Xanax -) 0.5 mg PO BID PRN PRN Reason: ANXIETY Last Admin: 08/30/17 15:56 Dose: 0.5 mg Atorvastatin Calcium (Lipitor -) 20 mg PO HS [facility] Last Admin: 08/30/17 21:06 Dose: 20 mg Benzocaine/Menthol (Cepacol Lozenge -) 1 each MM PRN PRN PRN Reason: SORE THROAT Last Admin: 08/29/17 17:39 Dose: 1 each Budesonide/Formoterol Fumarate (Symbicort 160/4.5mcg -) 1 puff IH DAILY [facility] Last Admin: 08/31/17 09:39 Dose: 1 puff Calcium Carbonate (Calcium Carb Oral Suspension -) 500 mg PO DAILY [facility] Last Admin: 08/31/17 09:39 Dose: 500 mg Carvedilol (Coreg -) 12.5 mg PO BID [facility] Last Admin: 08/31/17 09:40 Dose: 12.5 mg Epoetin [place] (Epogen -) 4,000 units IVPUSH ONCE ONE Stop: 09/01/17 14:19 Fluticasone Propionate (Flonase -) 1 spray NS BID [facility] Last Admin: 08/31/17 11:52 Dose: Not Given Iron Sucrose 100 mg/ Sodium (Chloride) 100 mls @ 200 mls/hr IVPB ONCE ONE Stop: 09/01/17 14:47 Montelukast Sodium (Singulair -) 10 mg PO [facility] Last Admin: 08/30/17 21:07 Dose: 10 mg Ondansetron HCl (Zofran Injection) 4 mg IVPUSH Q4H PRN PRN Reason: NAUSEA AND/OR VOMITING Oxycodone HCl (Roxicodone -) 5 mg PO Q8H PRN PRN Reason: PAIN Last Admin: 08/30/17 21:06 Dose: 5 mg Pancrelipase (Creon Dr 36,000 Units Capsule) 1 cap PO TIDCM [facility] Last Admin: 08/31/17 12:21 Dose: 1 cap Pantoprazole Sodium (Protonix -) 40 mg PO DAILY [facility] Last Admin: 08/31/17 09:40 Dose: 40 mg Saliva Substitute (Mouthkote Solution -) 1 applic MM DAILY [facility] Last Admin: 08/31/17 09:40 Dose: Not Given Tamsulosin HCl (Flomax -) 0.4 mg PO HS [facility] Last Admin: 08/30/17 21:06 Dose: 0.4 mg Tiotropium [place] (Spiriva -) 1 puff IH DAILY [facility] Last Admin: 08/31/17 11:52 Dose: Not Given Trazodone HCl (Desyrel -) 100 mg PO HS [facility] Last Admin: 08/30/17 21:07 Dose: 100 mg Zolpidem Tartrate (Ambien -) 5 mg PO HS PRN PRN Reason: INSOMNIA Last Admin: 08/30/17 21:06 Dose: 5 mg - Objective Vital Signs: Vital Signs Temperature 97.8 F 08/31/17 05:39 Pulse Rate 94 H 08/31/17 05:39 Respiratory Rate 20 08/31/17 09:00 Blood Pressure 124/60 08/31/17 05:39 O2 Sat by Pulse Oximetry (%) 98 08/27/17 08:28 Constitutional: Yes: Anxious Eyes: Yes: WNL HENT: Yes: WNL Neck: Yes: Supple Cardiovascular: Yes: WNL Respiratory: Yes: WNL Gastrointestinal: Yes: WNL ...Rectal Exam: Yes: Deferred Genitourinary: Yes: Oliguria Edema: Yes Edema: LLE: 2+, RLE: 2+ Integumentary: Yes: WNL Labs: CBC, BMP 08/29/17 08:20 08/29/17 08:20 INR, PTT INR 1.32 (0.82-1.09) H 08/12/17 07:45 Assessment/Plan Dialysis in am
--- NOTE | 2017-08-31 15:11 | PN ---
Progress Note, Physician History of Present Illness: Tolerating diet, continued peripheral edema despite HD via right PC TTHS and diuretics. - Current Medication List Current Medications: Active Medications Acetaminophen (Tylenol -) 325 mg PO Q8H PRN PRN Reason: PAIN Last Admin: 08/29/17 13:09 Dose: 325 mg Acetaminophen (Tylenol -) 650 mg PO Q4H PRN PRN Reason: FEVER OR PAIN Albuterol Sulfate (Ventolin Hfa Inhaler -) 1 puff IH Q6H PRN PRN Reason: SHORT OF BREATH/WHEEZING Alprazolam (Xanax -) 0.5 mg PO BID PRN PRN Reason: ANXIETY Last Admin: 08/30/17 15:56 Dose: 0.5 mg Atorvastatin Calcium (Lipitor -) 20 mg PO HS [facility] Last Admin: 08/30/17 21:06 Dose: 20 mg Benzocaine/Menthol (Cepacol Lozenge -) 1 each MM PRN PRN PRN Reason: SORE THROAT Last Admin: 08/29/17 17:39 Dose: 1 each Budesonide/Formoterol Fumarate (Symbicort 160/4.5mcg -) 1 puff IH DAILY [facility] Last Admin: 08/31/17 09:39 Dose: 1 puff Calcium Carbonate (Calcium Carb Oral Suspension -) 500 mg PO DAILY [facility] Last Admin: 08/31/17 09:39 Dose: 500 mg Carvedilol (Coreg -) 12.5 mg PO BID [facility] Last Admin: 08/31/17 09:40 Dose: 12.5 mg Epoetin Anshu (Epogen -) 4,000 units IVPUSH ONCE ONE Stop: 09/01/17 14:19 Fluticasone Propionate (Flonase -) 1 spray NS BID [facility] Last Admin: 08/31/17 11:52 Dose: Not Given Iron Sucrose 100 mg/ Sodium (Chloride) 100 mls @ 200 mls/hr IVPB ONCE ONE Stop: 09/01/17 14:47 Montelukast Sodium (Singulair -) 10 mg PO [facility] Last Admin: 08/30/17 21:07 Dose: 10 mg Ondansetron HCl (Zofran Injection) 4 mg IVPUSH Q4H PRN PRN Reason: NAUSEA AND/OR VOMITING Oxycodone HCl (Roxicodone -) 5 mg PO Q8H PRN PRN Reason: PAIN Last Admin: 08/30/17 21:06 Dose: 5 mg Pancrelipase (Creon Dr 36,000 Units Capsule) 1 cap PO TIDCM [facility] Last Admin: 08/31/17 12:21 Dose: 1 cap Pantoprazole Sodium (Protonix -) 40 mg PO DAILY [facility] Last Admin: 08/31/17 09:40 Dose: 40 mg Saliva Substitute (Mouthkote Solution -) 1 applic MM DAILY [facility] Last Admin: 08/31/17 09:40 Dose: Not Given Tamsulosin HCl (Flomax -) 0.4 mg PO HS [facility] Last Admin: 08/30/17 21:06 Dose: 0.4 mg Tiotropium [place] (Spiriva -) 1 puff IH DAILY [facility] Last Admin: 08/31/17 11:52 Dose: Not Given Trazodone HCl (Desyrel -) 100 mg PO HS [facility] Last Admin: 08/30/17 21:07 Dose: 100 mg Zolpidem Tartrate (Ambien -) 5 mg PO HS PRN PRN Reason: INSOMNIA Last Admin: 08/30/17 21:06 Dose: 5 mg - Objective Vital Signs: Vital Signs Temperature 97.8 F 08/31/17 05:39 Pulse Rate 94 H 08/31/17 05:39 Respiratory Rate 20 08/31/17 09:00 Blood Pressure 124/60 08/31/17 05:39 O2 Sat by Pulse Oximetry (%) 98 08/27/17 08:28 Constitutional: Yes: No Distress, Calm Neck: Yes: Supple Cardiovascular: Yes: Regular Rate and Rhythm Respiratory: Yes: Regular, Diminished Gastrointestinal: Yes: Normal Bowel Sounds, Soft Edema: Yes Edema: LLE: 2+, RLE: 2+ Labs: CBC, BMP 08/29/17 08:20 08/29/17 08:20 INR, PTT INR 1.32 (0.82-1.09) H 08/12/17 07:45 Problem List - Problems (1) Anemia Code(s): D64.9 - ANEMIA, UNSPECIFIED Qualifiers: Anemia type: due to chronic kidney disease (2) CVD (cerebrovascular disease) Code(s): I67.9 - CEREBROVASCULAR DISEASE, UNSPECIFIED (3) Hx of CABG Code(s): Z95.1 - PRESENCE OF AORTOCORONARY BYPASS GRAFT (4) Hypercholesterolemia Code(s): E78.00 - PURE HYPERCHOLESTEROLEMIA, UNSPECIFIED (5) Presence of permanent cardiac pacemaker Code(s): Z95.0 - PRESENCE OF CARDIAC PACEMAKER (6) Sick sinus syndrome Code(s): I49.5 - SICK SINUS SYNDROME (7) CHF Congestive heart failure Code(s): I50.9 - HEART FAILURE, UNSPECIFIED (8) Abdominal aortic aneurysm (AAA) Code(s): I71.4 - ABDOMINAL AORTIC ANEURYSM, WITHOUT RUPTURE Qualifiers: Presence of rupture: without rupture Qualified Code(s): I71.4 - Abdominal aortic aneurysm, without rupture (9) Ischemic colitis Code(s): K55.9 - VASCULAR DISORDER OF INTESTINE, UNSPECIFIED (10) Rectal bleeding Code(s): K62.5 - HEMORRHAGE OF ANUS AND RECTUM (11) [id number] kidney injury Code(s): N17.9 - ACUTE KIDNEY FAILURE, UNSPECIFIED; N18.9 - CHRONIC KIDNEY DISEASE, UNSPECIFIED Qualifiers: Acute renal failure type: unspecified Chronic kidney disease stage: stage 5 , not on chronic dialysis Qualified Code(s): N17.9 - Acute kidney failure, unspecified; N18.5 - Chronic kidney disease, stage 5; N18.5 - Chronic kidney disease, stage 5; N18.5 - Chronic kidney disease, stage 5; N18.5 - Chronic kidney disease, stage 5 Assessment/Plan 1. Rectal bleed, underlying diverticulitis with partial SBO with dilated small bowel loops - resolved 2. CAD s/p CABG, angina pectoris 3. Persistent AF with underlying PPM for sick sinus syndrome 4. ESRD on HD 5. Hypercholesterolemia 6. CVA/TIA 7. COPD 8. TAA and AAA 9. Anemia of CKD PLAN: 1. Hemodialysis TTHS via right PC and diuresis per renal 2. Plan for AVF 3. Continue Carvedilol 12.5 bid 4. Continue Atorvastatin 20 qhs 5. Monitor CBC and transfuse PRBC as needed 6. TAA and AAA likely also needs surveillance probably not ready for intervention 7. Start Diovan 40 qd with uptitration as tolerated 8. Compression therapy with GABE wraps, encourage ambulation Further plans are to follow. Currently he is off Eliquis, but will need to resume systemic a/c several weeks after resolution of rectal bleed
--- NOTE | 2017-08-31 19:40 | PN ---
Progress Note (short form) - Note Progress Note: Pt seen and examined sitting in chair. Tolerating renal diet. No specific complaints. No nausea, no abdominal pain. Swollen BLE and feet. HD tomorrow. No BM for 2 days. Vital Signs Period Temp Pulse Resp BP Sys/Whitaker Pulse Ox Last 24 Hr 97.8 F-98.2 F 70-96 20-20 93-124/46-68 PE: abdomen soft, obese, nontender somewhat distended A&O 4+ edema bilateral feet, 3+ lower legs no resp distress, no SOB Microbiology 08/28/17 09:20 Gram Stain - Final Sputum - Expectorated Sputum Culture - Final Pseudomonas Aeruginosa Mr S Aureus no new labs today A/P: SBO resolved may need stool softeners and/or dulcolax if on fluid restriction, may have trouble with constipation advised to avoid narcotic pain medication no acute surgical issues HD tomorrow and d/c planning no need for surgical followup will follow peripherally Problem List - Problems (1) Partial small bowel obstruction Code(s): K56.600 - PARTIAL INTESTINAL OBSTRUCTION, UNSPECIFIED TO CAUSE (2) Diverticulosis large intestine w/o perforation or abscess w/bleeding Code(s): K57.31 - DVRTCLOS OF LG INT W/O PERFORATION OR ABSCESS W BLEEDING (3) Chronic kidney disease with end stage renal failure on dialysis Code(s): N18.6 - END STAGE RENAL DISEASE; Z99.2 - DEPENDENCE ON RENAL DIALYSIS (4) Aortic valve prosthesis present Code(s): Z95.2 - PRESENCE OF PROSTHETIC HEART VALVE
[2017-08-31] MEDS: TAMSULOSIN HCL 0.4 MG CAP.ER.24H (FP) PO SCH (21:22)
[2017-08-31] MEDS: traZODone HCL 50 MG TABLET (FP) PO SCH (21:23)
[2017-08-31] MEDS: ATORVASTATIN CA 20 MG TABLET (FP) PO SCH (21:23)
[2017-08-31] MEDS: ZOLPIDEM TARTRATE 5 MG TABLET PO PRN (21:23)
[2017-08-31] MEDS: MONTELUKAST NA 10 MG TABLET PO SCH (21:23)
[2017-09-01] MEDS: LIPASE/PROTEASE/AMYLASE 36,000 UNIT CAPSULE PO SCH ×3 (08:00→17:40)
[2017-09-01] MEDS ORDERED: PT OWN MED DRAWER 7, Y5N ONE ×2 (08:11→16:27)
--- NOTE | 2017-09-01 08:48 | DS ---
Physical Examination Vital Signs: Vital Signs Temperature 98.0 F 09/01/17 06:00 Pulse Rate 94 H 09/01/17 06:00 Respiratory Rate 22 09/01/17 06:00 Blood Pressure 126/77 09/01/17 06:00 O2 Sat by Pulse Oximetry (%) 98 08/27/17 08:28 Findings/Remarks: Admitted with rectal bleed due to diverticulitis developed partial intestinal obstruction Also non to have ESRD ,on HD now Partial intestinal obstruction resolved Constitutional: Yes: No Distress Eyes: Yes: WNL HENT: Yes: WNL Neck: Yes: WNL Cardiovascular: Yes: Pulse Irregular Respiratory: Yes: WNL Gastrointestinal: Yes: Normal Bowel Sounds ...Rectal Exam: Yes: Deferred Renal/: Yes: Oliguria Musculoskeletal: Yes: Muscle Weakness Edema: No Edema: LLE: 1+, RLE: 1+ Neurological: Yes: Alert Psychiatric: Yes: Alert Labs: CBC, BMP 08/29/17 08:20 08/29/17 08:20 Discharge Summary Reason For Visit: RECTAL HEMORRHAGE Current Active Problems Abdominal aortic aneurysm (AAA) (Acute) Abdominal pain (Acute) Acute diverticulitis (Acute) Gqrwe-sj-vmqsrtz kidney injury (Acute) Adjustment reaction to medical therapy (Acute) Anemia (Acute) Aortic valve prosthesis present (Acute) CKD (chronic kidney disease) (Acute) COPD (chronic obstructive pulmonary disease) (Acute) CVD (cerebrovascular disease) (Acute) Chronic kidney disease with end stage renal failure on dialysis (Acute) Diverticulosis large intestine w/o perforation or abscess w/bleeding (Acute) Hx of CABG (Acute) Hypercholesterolemia (Acute) Ileus, unspecified (Acute) Ischemic colitis (Acute) Partial small bowel obstruction (Acute) Presence of permanent cardiac pacemaker (Acute) Rectal bleeding (Acute) SBO (small bowel obstruction) (Acute) Sick sinus syndrome (Acute) Condition: Fair - Instructions Referrals: Lillian Aldrich MD [Primary Care Provider] - - Home Medications Comprehensive Discharge Medication List: Ambulatory Orders Albuterol 0.083% Nebulizer Kristyn [Ventolin 0.083%] 1 neb NEB QID PRN 04/02/16 Apixaban [Eliquis] 5 mg PO BID 04/02/16 Aspirin [ASA -] 81 mg PO DAILY 04/02/16 Atorvastatin Calcium 20 mg PO HS 04/02/16 Azelastine HCl [Astepro] 1 - 2 spr NS BID 04/02/16 Budesonide/Formeterol Fumarate [SYMBICORT 160/4.5mcg -] 1 inh PO DAILY 04/02/16 Cholecalciferol (Vitamin D3) [Vitamin D3 -] 3,000 unit PO DAILY 04/02/16 Ethambutol HCl [Myambutol -] 400 mg PO DAILY 04/02/16 Furosemide [Lasix -] 20 mg PO DAILY 04/02/16 Levalbuterol Tartrate [Xopenex Hfa] 15 gm IH DAILY PRN 04/02/16 Montelukast Na [Singulair -] 10 mg PO HS 04/02/16 Omeprazole [Prilosec] 40 mg PO BID 04/02/16 Tamsulosin HCl [Flomax] 0.4 mg PO HS 04/02/16 Tiotropium [place] [Spiriva] 1 inh PO DAILY 04/02/16 Trazodone HCl [Desyrel -] 100 mg PO HS 04/02/16 Zolpidem Tartrate [Ambien] 10 mg PO HS 04/02/16 Carvedilol 12.5 mg PO DAILY 08/10/17 Triamcinolone Acetonide [Nasacort] 1 inh BID 08/10/17 Valsartan 320 mg PO DAILY 08/10/17
[2017-09-01] MEDS ORDERED: EPOETIN ALFA 2,000 UNITS/1 ML VIAL IVPUSH ONE (09:30)
[2017-09-01] MEDS ORDERED: IRON SUCROSE INJECTION 100 MG in SODIUM CHLORIDE 95 ML IVPB ONE (09:30)
--- NOTE | 2017-09-01 09:49 | PN ---
Progress Note, Physician Chief Complaint: small bowel obstruction History of Present Illness: 71 yo male with a MMP with history of intermittent constipation. Patient states he had a colonoscopy 5 years previous which was normal. CTscan on 08/17 shows distended stomach and small bowel, contrast was very proximal. Only previous abdominal surgery was an open appendectomy. abdominal pain is mostly resolved, having flatus and bowel movements. Tolerated renal diet. - Current Medication List Current Medications: Active Medications Acetaminophen (Tylenol -) 325 mg PO Q8H PRN PRN Reason: PAIN Last Admin: 08/29/17 13:09 Dose: 325 mg Acetaminophen (Tylenol -) 650 mg PO Q4H PRN PRN Reason: FEVER OR PAIN Albuterol Sulfate (Ventolin Hfa Inhaler -) 1 puff IH Q6H PRN PRN Reason: SHORT OF BREATH/WHEEZING Alprazolam (Xanax -) 0.5 mg PO BID PRN PRN Reason: ANXIETY Last Admin: 08/30/17 15:56 Dose: 0.5 mg Atorvastatin Calcium (Lipitor -) 20 mg PO [facility] Last Admin: 08/31/17 21:23 Dose: 20 mg Benzocaine/Menthol (Cepacol Lozenge -) 1 each MM PRN PRN PRN Reason: SORE THROAT Last Admin: 08/29/17 17:39 Dose: 1 each Budesonide/Formoterol Fumarate (Symbicort 160/4.5mcg -) 1 puff IH DAILY [facility] Last Admin: 08/31/17 09:39 Dose: 1 puff Calcium Carbonate (Calcium Carb Oral Suspension -) 500 mg PO DAILY [facility] Last Admin: 08/31/17 09:39 Dose: 500 mg Carvedilol (Coreg -) 12.5 mg PO BID [facility] Last Admin: 08/31/17 21:23 Dose: 12.5 mg Fluticasone Propionate (Flonase -) 1 spray NS BID [facility] Last Admin: 08/31/17 21:24 Dose: 1 spray Iron Sucrose 100 mg/ Sodium (Chloride) 100 mls @ 200 mls/hr IVPB ONCE ONE Stop: 09/01/17 09:59 Montelukast Sodium (Singulair -) 10 mg PO HS [facility] Last Admin: 08/31/17 21:23 Dose: 10 mg Ondansetron HCl (Zofran Injection) 4 mg IVPUSH Q4H PRN PRN Reason: NAUSEA AND/OR VOMITING Pancrelipase (Creon Dr 36,000 Units Capsule) 1 cap PO TIDCM [facility] Last Admin: 08/31/17 17:08 Dose: 1 cap Pantoprazole Sodium (Protonix -) 40 mg PO DAILY [facility] Last Admin: 08/31/17 09:40 Dose: 40 mg Saliva Substitute (Mouthkote Solution -) 1 applic MM DAILY [facility] Last Admin: 08/31/17 09:40 Dose: Not Given Tamsulosin HCl (Flomax -) 0.4 mg PO HS [facility] Last Admin: 08/31/17 21:22 Dose: 0.4 mg Tiotropium [place] (Spiriva -) 1 puff IH DAILY [facility] Last Admin: 08/31/17 11:52 Dose: Not Given Trazodone HCl (Desyrel -) 100 mg PO HS [facility] Last Admin: 08/31/17 21:23 Dose: 100 mg Valsartan (Diovan -) 40 mg PO DAILY [facility] Zolpidem Tartrate (Ambien -) 5 mg PO HS PRN PRN Reason: INSOMNIA Last Admin: 08/31/17 21:23 Dose: 5 mg - Objective Vital Signs: Vital Signs Temperature 98.0 F 09/01/17 06:00 Pulse Rate 94 H 09/01/17 06:00 Respiratory Rate 22 09/01/17 08:30 Blood Pressure 126/77 09/01/17 06:00 O2 Sat by Pulse Oximetry (%) 98 08/27/17 08:28 Constitutional: Yes: Well Nourished, No Distress, Calm Eyes: Yes: Conjunctiva Clear, EOM Intact HENT: Yes: Atraumatic, Normocephalic Neck: Yes: Supple, Trachea Midline Cardiovascular: Yes: Regular Rate and Rhythm, S1, S2 Respiratory: Yes: Regular, CTA Bilaterally, Cough (non- productive) Gastrointestinal: Yes: Normal Bowel Sounds, Soft. No: Distention, Tenderness, Tenderness, Epigastrium, Tenderness, Rebound, Vomiting Genitourinary: No: CVA Tenderness - Left, CVA Tenderness - Right Edema: Yes Edema: LLE: 2+, RLE: 2+ Peripheral Pulses WNL: Yes Neurological: Yes: Alert, Oriented Psychiatric: Yes: Alert, Oriented Labs: INR, PTT INR 1.32 (0.82-1.09) H 08/12/17 07:45 CBC,CMP WBC 10.2 K/mm3 (4.0-10.0) H 09/01/17 09:00 RBC 2.99 M/mm3 (4.00-5.60) L 09/01/17 09:00 Hgb 8.8 GM/dL (11.7-16.9) L 09/01/17 09:00 Hct 27.0 % (35.4-49) L 09/01/17 09:00 MCV 90.3 fl (80-96) 09/01/17 09:00 MCH 29.4 pg (25.7-33.7) 09/01/17 09:00 MCHC 32.5 g/dl (32.0-35.9) 09/01/17 09:00 RDW 15.6 % (11.9-15.9) 09/01/17 09:00 Plt Count 172 K/MM3 (134-434) 09/01/17 09:00 MPV 8.4 fl (7.5-11.1) 09/01/17 09:00 Absolute Neuts (auto) 8.6 # (42.8-82.8) L 08/28/17 05:05 Absolute Lymphs (auto) 0.5 (8-40) L 08/28/17 05:05 Absolute Monos (auto) 0.9 # (3.8-10.2) L 08/28/17 05:05 Absolute Eos (auto) 0.1 # (0-4.5) 08/28/17 05:05 Absolute Basos (auto) 0.0 # (0.1-1) L 08/28/17 05:05 Neutrophils % 86.4 % (42.8-82.8) H 09/01/17 09:00 Lymphocytes % 6.2 % (8-40) L D 09/01/17 09:00 Monocytes % 6.1 % (3.8-10.2) 09/01/17 09:00 Eosinophils % 0.7 % (0-4.5) 09/01/17 09:00 Basophils % 0.6 % (0-2.0) 09/01/17 09:00 Retic Count 1.94 % (0.5-1.5) H 08/12/17 07:45 Sodium 135 mmol/L (136-145) L 09/01/17 09:00 Potassium 3.4 mmol/L (3.5-5.1) L 09/01/17 09:00 Chloride 100 mmol/L (98-107) 09/01/17 09:00 Carbon Dioxide 25 mmol/L (21-32) 09/01/17 09:00 Anion Gap 10 (8-16) 09/01/17 09:00 BUN 44 mg/dL (7-18) H D 09/01/17 09:00 Creatinine 5.6 mg/dL (0.7-1.3) H 09/01/17 09:00 Creat Clearance w eGFR 12.95 (>60) 08/26/17 10:00 Random Glucose 148 mg/dL (74-106) H D 09/01/17 09:00 Lactic Acid 0.6 mmol/L (0.4-2.0) 08/21/17 13:45 Calcium 7.4 mg/dL (8.5-10.1) L 09/01/17 09:00 Phosphorus 4.0 mg/dL (2.5-4.9) D 09/01/17 09:00 Magnesium 1.6 mg/dL (1.8-2.4) L 09/01/17 09:00 Iron 34 ug/dL (38-169) L 08/27/17 10:00 TIBC 220 ug/dL (250-450) L 08/12/17 07:45 Iron Saturation 7 % (15-55) L 08/12/17 07:45 Ferritin 109.286 ng/ml (16.4-293.9) 08/27/17 10:00 Total Bilirubin 0.3 mg/dL (0.2-1.0) D 08/26/17 10:00 AST 13 U/L (15-37) L 08/26/17 10:00 ALT 11 U/L (12-78) L 08/26/17 10:00 Alkaline Phosphatase 57 U/L (45-117) 08/26/17 10:00 LD Total 223 U/L (87-241) 08/12/17 07:45 B-Natriuretic Peptide 3344.85 pg/ml (5-125) H 08/10/17 12:38 Serum Total Protein 4.2 g/dL (6.0-8.5) L 08/12/17 07:45 Total Protein 4.8 g/dl (6.4-8.2) L 08/26/17 10:00 Albumin 2.0 g/dl (3.4-5.0) L 08/26/17 10:00 Globulin 2.1 g/dL (2.2-3.9) L 08/12/17 07:45 Albumin/Globulin Ratio 1.1 (0.7-1.7) 08/12/17 07:45 Prealbumin 16.2 mg/dl (20-40) L 08/25/17 06:25 Glckd-1-Uhihmidcn 0.3 g/dL (0.0-0.4) 08/12/17 07:45 Saudz-4-Wmllykthe 0.7 g/dL (0.4-1.0) 08/12/17 07:45 Beta Globulins 0.7 g/dL (0.7-1.3) 08/12/17 07:45 Gamma Globulins 0.4 g/dL (0.4-1.8) 08/12/17 07:45 Lipase 129 U/L (73-393) 08/10/17 12:38 Problem List - Problems (1) SBO (small bowel obstruction) Assessment/Plan: 71yo male MMP presents with a partial SBO, h/o appendectomy, recent normal colonoscopy, WBC is normal. started scheduled dialysis. resolved partial SBO. Tolerating renal , GI fuction is reported as more normal and regular. expresses concerns about being discharged given recent cultures. ID will followup for a plan - Doxycycline? Tolerating renal diet consider stool softener and fiber encourage ambulation He does not require follow-up with general surgery upon discharge Code(s): K56.609 - UNSP INTESTNL OBST, UNSP TO PARTIAL VERSUS COMPLETE OBST (2) Abdominal pain Code(s): R10.9 - UNSPECIFIED ABDOMINAL PAIN Qualifiers: Abdominal location: unspecified location Qualified Code(s): R10.9 - Unspecified abdominal pain (3) Ileus, unspecified Code(s): K56.7 - ILEUS, UNSPECIFIED (4) Acute diverticulitis Code(s): K57.92 - DVTRCLI OF INTEST, PART UNSP, W/O PERF OR ABSCESS W/O BLEED (5) Anemia Code(s): D64.9 - ANEMIA, UNSPECIFIED Qualifiers: Anemia type: due to chronic kidney disease (6) Hypercholesterolemia Code(s): E78.00 - PURE HYPERCHOLESTEROLEMIA, UNSPECIFIED (7) CHF Congestive heart failure Code(s): I50.9 - HEART FAILURE, UNSPECIFIED
[2017-09-01 09:52] LABS: BASO % 0.6 % (0-2.0); EOS % 0.7 % (0-4.5); HEMOGLOBIN 8.8 GM/dL (11.7-16.9); LYMPH % 6.2 % (8-40); MCH 29.4 pg (25.7-33.7); MCHC 32.5 g/dl (32.0-35.9); MEAN CELL VOLUME 90.3 fl (80-96); MEAN PLT VOLUME 8.4 fl (7.5-11.1); MONO % 6.1 % (3.8-10.2); NEUT % 86.4 % (42.8-82.8); PLATELET COUNT 172 K/MM3 (134-434); RBC 2.99 M/mm3 (4.00-5.60); RDW 15.6 % (11.9-15.9); WHITE BLOOD COUNT 10.2 K/mm3 (4.0-10.0)
[2017-09-01 10:14] LABS: ANION GAP 10 (8-16); BLOOD UREA NITROGEN 44 mg/dL (7-18); CALCIUM 7.4 mg/dL (8.5-10.1); CHLORIDE 100 mmol/L (98-107); CO2 25 mmol/L (21-32); CREATININE 5.6 mg/dL (0.7-1.3); GLUCOSE,RANDOM 148 mg/dL (74-106); MAGNESIUM 1.6 mg/dL (1.8-2.4); POTASSIUM 3.4 mmol/L (3.5-5.1); SODIUM 135 mmol/L (136-145)
[2017-09-01] MEDS: CARVEDILOL 12.5 MG TABLET (FP) PO SCH ×2 (13:00→21:07)
[2017-09-01] MEDS: ALPRAZolam 0.25 MG TABLET PO PRN (13:00)
[2017-09-01] MEDS: VALSARTAN 40 MG TABLET (FP) PO SCH (13:01)
[2017-09-01] MEDS: PANTOPRAZOLE 40 MG TABLET (FP) PO SCH (13:01)
[2017-09-01] MEDS: CALCIUM CARBONATE SUSPENSION - 500 MG/5 ML ML PO SCH (13:02)
[2017-09-01] MEDS: TIOTROPIUM BROMIDE 18 MCG/INH (DEVICE W/ 5 CAPSULES) IH SCH (13:03)
[2017-09-01] MEDS: FLUTICASONE PROP 0.05% 16 GM NASAL SPRAY NS SCH ×2 (13:07→21:07)
[2017-09-01] MEDS: LYTES/YERBA SANTA 240 ML BOTTLE MM SCH (13:08)
[2017-09-01] MEDS: BUDESONIDE/FORMETEROL FUMARATE 160/4.5 mcg INHALER IH SCH (13:12)
--- NOTE | 2017-09-01 13:54 | PN ---
Progress Note, Physician Chief Complaint: Events noted. Patient was seen in HD History of Present Illness: Patient was seen and examined. Awake and alert. Chart was reviewed Denies chest pain, SOB or palpitation Pedal edema persistent Tolerating HD - Current Medication List Current Medications: Active Medications Acetaminophen (Tylenol -) 325 mg PO Q8H PRN PRN Reason: PAIN Last Admin: 08/29/17 13:09 Dose: 325 mg Acetaminophen (Tylenol -) 650 mg PO Q4H PRN PRN Reason: FEVER OR PAIN Albuterol Sulfate (Ventolin Hfa Inhaler -) 1 puff IH Q6H PRN PRN Reason: SHORT OF BREATH/WHEEZING Alprazolam (Xanax -) 0.5 mg PO BID PRN PRN Reason: ANXIETY Last Admin: 09/01/17 13:00 Dose: 0.5 mg Atorvastatin Calcium (Lipitor -) 20 mg PO HS [facility] Last Admin: 08/31/17 21:23 Dose: 20 mg Benzocaine/Menthol (Cepacol Lozenge -) 1 each MM PRN PRN PRN Reason: SORE THROAT Last Admin: 08/29/17 17:39 Dose: 1 each Budesonide/Formoterol Fumarate (Symbicort 160/4.5mcg -) 1 puff IH DAILY [facility] Last Admin: 09/01/17 13:12 Dose: 1 puff Calcium Carbonate (Calcium Carb Oral Suspension -) 500 mg PO DAILY [facility] Last Admin: 09/01/17 13:02 Dose: 500 mg Carvedilol (Coreg -) 12.5 mg PO BID [facility] Last Admin: 09/01/17 13:00 Dose: 12.5 mg Fluticasone Propionate (Flonase -) 1 spray NS BID [facility] Last Admin: 09/01/17 13:07 Dose: 1 spray Montelukast Sodium (Singulair -) 10 mg PO HS [facility] Last Admin: 08/31/17 21:23 Dose: 10 mg Ondansetron HCl (Zofran Injection) 4 mg IVPUSH Q4H PRN PRN Reason: NAUSEA AND/OR VOMITING Pancrelipase (Creon Dr 36,000 Units Capsule) 1 cap PO TIDCM [facility] Last Admin: 09/01/17 13:02 Dose: 1 cap Pantoprazole Sodium (Protonix -) 40 mg PO DAILY [facility] Last Admin: 09/01/17 13:01 Dose: 40 mg Saliva Substitute (Mouthkote Solution -) 1 applic MM DAILY [facility] Last Admin: 09/01/17 13:08 Dose: 1 applic Tamsulosin HCl (Flomax -) 0.4 mg PO HS [facility] Last Admin: 08/31/17 21:22 Dose: 0.4 mg Tiotropium [place] (Spiriva -) 1 puff IH DAILY [facility] Last Admin: 09/01/17 13:03 Dose: 1 puff Trazodone HCl (Desyrel -) 100 mg PO HS [facility] Last Admin: 08/31/17 21:23 Dose: 100 mg Valsartan (Diovan -) 40 mg PO DAILY [facility] Last Admin: 09/01/17 13:01 Dose: 40 mg Zolpidem Tartrate (Ambien -) 5 mg PO HS PRN PRN Reason: INSOMNIA Last Admin: 08/31/17 21:23 Dose: 5 mg - Objective Vital Signs: Vital Signs Temperature 98.2 F 09/01/17 08:55 Pulse Rate 60 09/01/17 12:39 Respiratory Rate 18 09/01/17 12:39 Blood Pressure 122/70 09/01/17 12:39 O2 Sat by Pulse Oximetry (%) 98 08/27/17 08:28 Eyes: Yes: PERRL Neck: Yes: Supple Cardiovascular: Yes: Regular Rate and Rhythm, Murmur (SM), S1, S2 Respiratory: Yes: CTA Bilaterally Gastrointestinal: Yes: Normal Bowel Sounds, Soft. No: Tenderness Edema: Yes Edema: LLE: 1+, RLE: 1+ Labs: CBC, BMP 09/01/17 09:00 09/01/17 09:00 Problem List - Problems (1) CVD (cerebrovascular disease) Code(s): I67.9 - CEREBROVASCULAR DISEASE, UNSPECIFIED (2) Hypercholesterolemia Code(s): E78.00 - PURE HYPERCHOLESTEROLEMIA, UNSPECIFIED (3) Sick sinus syndrome Code(s): I49.5 - SICK SINUS SYNDROME (4) Presence of permanent cardiac pacemaker Code(s): Z95.0 - PRESENCE OF CARDIAC PACEMAKER (5) Hx of CABG Code(s): Z95.1 - PRESENCE OF AORTOCORONARY BYPASS GRAFT (6) Abdominal pain Code(s): R10.9 - UNSPECIFIED ABDOMINAL PAIN Qualifiers: Qualified Code(s): R10.9 - Unspecified abdominal pain (7) Acute diverticulitis Code(s): K57.92 - DVTRCLI OF INTEST, PART UNSP, W/O PERF OR ABSCESS W/O BLEED (8) Anemia Code(s): D64.9 - ANEMIA, UNSPECIFIED (9) CKD (chronic kidney disease) Code(s): N18.9 - CHRONIC KIDNEY DISEASE, UNSPECIFIED Qualifiers: Qualified Code(s): N18.4 - Chronic kidney disease, stage 4 (severe) (10) Rectal bleeding Code(s): K62.5 - HEMORRHAGE OF ANUS AND RECTUM (11) CHF (congestive heart failure) Code(s): I50.9 - HEART FAILURE, UNSPECIFIED Qualifiers: Qualified Code(s): I50.43 - Acute on chronic combined systolic (congestive) and diastolic (congestive) heart failure (12) Partial small bowel obstruction Code(s): K56.600 - PARTIAL INTESTINAL OBSTRUCTION, UNSPECIFIED TO CAUSE Assessment/Plan 1. Rectal bleed, underlying diverticulitis with partial SBO with dilated small bowel loops - resolved 2. CAD s/p CABG, angina pectoris 3. Persistent AF with underlying PPM for sick sinus syndrome 4. Acute on CKD now on HD 5. Hypercholesterolemia 6. CVA/TIA 7. COPD 8. TAA and AAA PLAN: 1. HD as per Renal 2. Currently on Diovan 3. Continue Carvedilol as tolerated 4. Continue Atorvastatin 5. Monitor CBC and transfuse PRBC as needed 6. TAA and AAA likely also needs surveillance probably not ready for intervention 7. Eliquis is to be restarted if not contraindicated Further plans are to follow. Guarded Klever Marti MD
--- NOTE | 2017-09-01 14:18 | PN ---
Progress Note, Physician History of Present Illness: patient stable states that he is producing a lot of sputum - Current Medication List Current Medications: Active Medications Acetaminophen (Tylenol -) 325 mg PO Q8H PRN PRN Reason: PAIN Last Admin: 08/29/17 13:09 Dose: 325 mg Acetaminophen (Tylenol -) 650 mg PO Q4H PRN PRN Reason: FEVER OR PAIN Albuterol Sulfate (Ventolin Hfa Inhaler -) 1 puff IH Q6H PRN PRN Reason: SHORT OF BREATH/WHEEZING Alprazolam (Xanax -) 0.5 mg PO BID PRN PRN Reason: ANXIETY Last Admin: 09/01/17 13:00 Dose: 0.5 mg Atorvastatin Calcium (Lipitor -) 20 mg PO HS [facility] Last Admin: 08/31/17 21:23 Dose: 20 mg Benzocaine/Menthol (Cepacol Lozenge -) 1 each MM PRN PRN PRN Reason: SORE THROAT Last Admin: 08/29/17 17:39 Dose: 1 each Budesonide/Formoterol Fumarate (Symbicort 160/4.5mcg -) 1 puff IH DAILY [facility] Last Admin: 09/01/17 13:12 Dose: 1 puff Calcium Carbonate (Calcium Carb Oral Suspension -) 500 mg PO DAILY [facility] Last Admin: 09/01/17 13:02 Dose: 500 mg Carvedilol (Coreg -) 12.5 mg PO BID [facility] Last Admin: 09/01/17 13:00 Dose: 12.5 mg Doxycycline Hyclate (Vibramycin -) 100 mg PO BID@1000,1800 [facility] Fluticasone Propionate (Flonase -) 1 spray NS BID [facility] Last Admin: 09/01/17 13:07 Dose: 1 spray Montelukast Sodium (Singulair -) 10 mg PO HS [facility] Last Admin: 08/31/17 21:23 Dose: 10 mg Ondansetron HCl (Zofran Injection) 4 mg IVPUSH Q4H PRN PRN Reason: NAUSEA AND/OR VOMITING Pancrelipase (Creon Dr 36,000 Units Capsule) 1 cap PO TIDCM [facility] Last Admin: 09/01/17 13:02 Dose: 1 cap Pantoprazole Sodium (Protonix -) 40 mg PO DAILY [facility] Last Admin: 09/01/17 13:01 Dose: 40 mg Saliva Substitute (Mouthkote Solution -) 1 applic MM DAILY [facility] Last Admin: 09/01/17 13:08 Dose: 1 applic Tamsulosin HCl (Flomax -) 0.4 mg PO HS [facility] Last Admin: 08/31/17 21:22 Dose: 0.4 mg Tiotropium [place] (Spiriva -) 1 puff IH DAILY [facility] Last Admin: 09/01/17 13:03 Dose: 1 puff Trazodone HCl (Desyrel -) 100 mg PO HS [facility] Last Admin: 08/31/17 21:23 Dose: 100 mg Valsartan (Diovan -) 40 mg PO DAILY [facility] Last Admin: 09/01/17 13:01 Dose: 40 mg Zolpidem Tartrate (Ambien -) 5 mg PO HS PRN PRN Reason: INSOMNIA Last Admin: 08/31/17 21:23 Dose: 5 mg - Objective Vital Signs: Vital Signs Temperature 98.2 F 09/01/17 08:55 Pulse Rate 60 09/01/17 12:39 Respiratory Rate 18 09/01/17 12:39 Blood Pressure 122/70 09/01/17 12:39 O2 Sat by Pulse Oximetry (%) 98 08/27/17 08:28 Constitutional: Yes: No Distress, Calm Cardiovascular: Yes: Regular Rate and Rhythm Respiratory: Yes: Regular, CTA Bilaterally Musculoskeletal: Yes: WNL Extremities: Yes: WNL Neurological: Yes: Alert, Oriented Psychiatric: Yes: Alert, Oriented Labs: CBC, BMP 09/01/17 09:00 09/01/17 09:00 INR, PTT INR 1.32 (0.82-1.09) H 08/12/17 07:45 Assessment/Plan Problem List - Problems (1) Rectal bleeding Assessment/Plan: resolved Code(s): K62.5 - HEMORRHAGE OF ANUS AND RECTUM (2) CHF (congestive heart failure) Assessment/Plan: stable no sob Code(s): I50.9 - HEART FAILURE, UNSPECIFIED Qualifiers: Congestive heart failure type: combined Congestive heart failure chronicity : acute on chronic Qualified Code(s): I50.43 - Acute on chronic combined systolic (congestive) and diastolic (congestive) heart failure (3) Acute diverticulitis Assessment/Plan: on iv abx id on board Code(s): K57.92 - DVTRCLI OF INTEST, PART UNSP, W/O PERF OR ABSCESS W/O BLEED (4) Anemia Assessment/Plan: monitor s/p prbc transfusion Code(s): D64.9 - ANEMIA, UNSPECIFIED Qualifiers: Anemia type: unspecified type Qualified Code(s): D64.9 - Anemia, unspecified (5) CKD (chronic kidney disease) Assessment/Plan: monitor...cr LITTLE BETTER on ivf...NEED FOR HD renal on board Code(s): N18.9 - CHRONIC KIDNEY DISEASE, UNSPECIFIED Qualifiers: Chronic kidney disease stage: stage 4 (severe) Qualified Code(s): N18.4 - Chronic kidney disease, stage 4 (severe) (6) CHF Congestive heart failure Code(s): I50.9 - HEART FAILURE, UNSPECIFIED (7) SBO (small bowel obstruction) Assessment/Plan: npo, ivf.. iv pain meds ngt in place as xray was worse today Code(s): K56.609 - UNSP INTESTNL OBST, UNSP TO PARTIAL VERSUS COMPLETE OBST (8) Hypercholesterolemia Code(s): E78.00 - PURE HYPERCHOLESTEROLEMIA, UNSPECIFIED patients sputum cx growing pseudomonas and mrsa,patient is probably colonized and has already been treated with zosyn plan continue doxy will give it for 2 weeks to be give 2 hours before calcium carbonate
[2017-09-01] MEDS ORDERED: POTASSIUM CHLORIDE TABS 20 MEQ TABLET.ER (FP) PO ONE (14:22)
--- NOTE | 2017-09-01 14:25 | PN ---
Progress Note, Physician History of Present Illness: Pt seen and examined at bedside. He is currently getting HD. He denies shortness of breath. - Current Medication List Current Medications: Active Medications Acetaminophen (Tylenol -) 325 mg PO Q8H PRN PRN Reason: PAIN Last Admin: 08/29/17 13:09 Dose: 325 mg Acetaminophen (Tylenol -) 650 mg PO Q4H PRN PRN Reason: FEVER OR PAIN Albuterol Sulfate (Ventolin Hfa Inhaler -) 1 puff IH Q6H PRN PRN Reason: SHORT OF BREATH/WHEEZING Alprazolam (Xanax -) 0.5 mg PO BID PRN PRN Reason: ANXIETY Last Admin: 09/01/17 13:00 Dose: 0.5 mg Atorvastatin Calcium (Lipitor -) 20 mg PO HS [facility] Last Admin: 08/31/17 21:23 Dose: 20 mg Benzocaine/Menthol (Cepacol Lozenge -) 1 each MM PRN PRN PRN Reason: SORE THROAT Last Admin: 08/29/17 17:39 Dose: 1 each Budesonide/Formoterol Fumarate (Symbicort 160/4.5mcg -) 1 puff IH DAILY [facility] Last Admin: 09/01/17 13:12 Dose: 1 puff Calcium Carbonate (Calcium Carb Oral Suspension -) 500 mg PO DAILY [facility] Last Admin: 09/01/17 13:02 Dose: 500 mg Carvedilol (Coreg -) 12.5 mg PO BID [facility] Last Admin: 09/01/17 13:00 Dose: 12.5 mg Doxycycline Hyclate (Vibramycin -) 100 mg PO BID@1000,1800 [facility] Fluticasone Propionate (Flonase -) 1 spray NS BID [facility] Last Admin: 09/01/17 13:07 Dose: 1 spray Montelukast Sodium (Singulair -) 10 mg PO HS [facility] Last Admin: 08/31/17 21:23 Dose: 10 mg Ondansetron HCl (Zofran Injection) 4 mg IVPUSH Q4H PRN PRN Reason: NAUSEA AND/OR VOMITING Pancrelipase (Creon Dr 36,000 Units Capsule) 1 cap PO TIDCM [facility] Last Admin: 09/01/17 13:02 Dose: 1 cap Pantoprazole Sodium (Protonix -) 40 mg PO DAILY [facility] Last Admin: 09/01/17 13:01 Dose: 40 mg Saliva Substitute (Mouthkote Solution -) 1 applic MM DAILY [facility] Last Admin: 09/01/17 13:08 Dose: 1 applic Tamsulosin HCl (Flomax -) 0.4 mg PO HS [facility] Last Admin: 08/31/17 21:22 Dose: 0.4 mg Tiotropium [place] (Spiriva -) 1 puff IH DAILY [facility] Last Admin: 09/01/17 13:03 Dose: 1 puff Trazodone HCl (Desyrel -) 100 mg PO HS [facility] Last Admin: 08/31/17 21:23 Dose: 100 mg Valsartan (Diovan -) 40 mg PO DAILY [facility] Last Admin: 09/01/17 13:01 Dose: 40 mg Zolpidem Tartrate (Ambien -) 5 mg PO HS PRN PRN Reason: INSOMNIA Last Admin: 08/31/17 21:23 Dose: 5 mg - Objective Vital Signs: Vital Signs Temperature 98.2 F 09/01/17 08:55 Pulse Rate 60 09/01/17 12:39 Respiratory Rate 18 09/01/17 12:39 Blood Pressure 122/70 09/01/17 12:39 O2 Sat by Pulse Oximetry (%) 98 08/27/17 08:28 Constitutional: Yes: Calm Eyes: Yes: Conjunctiva Clear HENT: Yes: Atraumatic Neck: Yes: Supple Cardiovascular: Yes: S1, S2 Respiratory: Yes: CTA Bilaterally Gastrointestinal: Yes: Soft Genitourinary: Yes: WNL Musculoskeletal: Yes: WNL Edema: Yes Edema: LLE: 1+, RLE: 1+ Neurological: Yes: Oriented Psychiatric: Yes: Oriented Labs: CBC, BMP 09/01/17 09:00 09/01/17 09:00 INR, PTT INR 1.32 (0.82-1.09) H 08/12/17 07:45 Problem List - Problems (1) CKD (chronic kidney disease) Code(s): N18.9 - CHRONIC KIDNEY DISEASE, UNSPECIFIED Qualifiers: Chronic kidney disease stage: stage 4 (severe) Qualified Code(s): N18.4 - Chronic kidney disease, stage 4 (severe) (2) Anemia Code(s): D64.9 - ANEMIA, UNSPECIFIED Qualifiers: Anemia type: due to chronic kidney disease (3) Abdominal pain Code(s): R10.9 - UNSPECIFIED ABDOMINAL PAIN Qualifiers: Abdominal location: unspecified location Qualified Code(s): R10.9 - Unspecified abdominal pain (4) Rectal bleeding Code(s): K62.5 - HEMORRHAGE OF ANUS AND RECTUM (5) Acute exacerbation of COPD with asthma Code(s): J44.1 - CHRONIC OBSTRUCTIVE PULMONARY DISEASE W (ACUTE) EXACERBATION; J45.901 - UNSPECIFIED ASTHMA WITH (ACUTE) EXACERBATION (6) CHF (congestive heart failure) Code(s): I50.9 - HEART FAILURE, UNSPECIFIED Qualifiers: Congestive heart failure type: combined Congestive heart failure chronicity : acute on chronic Qualified Code(s): I50.43 - Acute on chronic combined systolic (congestive) and diastolic (congestive) heart failure Assessment/Plan Current Medications Generic Name Dose Route Start Last Admin Trade Name Freq PRN Reason Stop Dose Admin Acetaminophen 325 mg 08/28/17 17:32 08/29/17 13:09 Tylenol - PO 325 mg Q8H PRN Administration PAIN Acetaminophen 650 mg 08/28/17 17:35 Tylenol - PO Q4H PRN FEVER OR PAIN Albuterol Sulfate 1 puff 08/25/17 17:58 Ventolin Hfa Inhaler - IH Q6H PRN SHORT OF BREATH/WHEEZING Alprazolam 0.5 mg 08/29/17 18:10 09/01/17 13:00 Xanax - PO 0.5 mg BID PRN Administration ANXIETY Atorvastatin Calcium 20 mg 08/25/17 22:00 08/31/17 21:23 Lipitor - PO 20 mg HS [facility] Administration Benzocaine/Menthol 1 each 08/29/17 17:11 08/29/17 17:39 Cepacol Lozenge - MM 1 each PRN PRN Administration SORE THROAT Budesonide/Formoterol Fumarate 1 puff 08/26/17 10:00 09/01/17 13:12 Symbicort 160/4.5mcg - IH 1 puff DAILY [facility] Administration Calcium Carbonate 500 mg 08/26/17 10:00 09/01/17 13:02 Calcium Carb Oral Suspension - PO 500 mg DAILY [facility] Administration Carvedilol 12.5 mg 08/25/17 22:00 09/01/17 13:00 Coreg - PO 12.5 mg BID [facility] Administration Doxycycline Hyclate 100 mg 09/01/17 18:00 Vibramycin - PO BID@1000,1800 [facility] Fluticasone Propionate 1 spray 08/25/17 22:00 09/01/17 13:07 Flonase - NS 1 spray BID [facility] Administration Montelukast Sodium 10 mg 08/25/17 22:00 08/31/17 21:23 Singulair - PO 10 mg HS [facility] Administration Ondansetron HCl 4 mg 08/25/17 17:58 Zofran Injection IVPUSH Q4H PRN NAUSEA AND/OR VOMITING Pancrelipase 1 cap 08/26/17 08:00 09/01/17 13:02 [place] 36,000 Units Capsule PO 1 cap TIDCM [facility] Administration Pantoprazole Sodium 40 mg 08/29/17 10:00 09/01/17 13:01 Protonix - PO 40 mg DAILY [facility] Administration Saliva Substitute 1 applic 08/26/17 10:00 09/01/17 13:08 Mouthkote Solution - MM 1 applic DAILY [facility] Administration Tamsulosin HCl 0.4 mg 08/25/17 22:00 08/31/17 21:22 Flomax - PO 0.4 mg HS [facility] Administration Tiotropium [place] 1 puff 08/26/17 10:00 09/01/17 13:03 Spiriva - IH 1 puff DAILY [facility] Administration Trazodone HCl 100 mg 08/25/17 22:00 08/31/17 21:23 Desyrel - PO 100 mg HS [facility] Administration Valsartan 40 mg 09/01/17 10:00 09/01/17 13:01 Diovan - PO 40 mg DAILY [facility] Administration Zolpidem Tartrate 5 mg 08/31/17 22:00 08/31/17 21:23 Ambien - PO 5 mg HS PRN Administration INSOMNIA Impression 1. ESRD 2. ALAN 3. anemia 4. GI bleed 5. BPH 6. a-fib 7. aortic aneurysm 8. COPD 9. insomnia 10. SBO Plan - HD today - pt tolerating UF - will give diuretics tomorrow - pt set up for HD on as outpt - cont venofer - cont epogen - replace potassium - pt will still need a fistula - will follow closely - cont mattie Ortega
[2017-09-01] MEDS: DOXYCYCLINE HYCLATE 100 MG CAPSULE PO SCH (16:02)
[2017-09-01] MEDS ORDERED: oxyCODONE HCL 5 MG TABLET PO PRN (16:35)
[2017-09-01] MEDS: BENZOCAINE/MENTH/CETYLPYRD CL 1 EACH LOZENGE MM PRN (16:47)
[2017-09-01] MEDS: ACETAMINOPHEN 325 MG TABLET (FP) PO PRN (16:48)
[2017-09-01] MEDS ORDERED: APIXABAN 5 MG TABLET PO SCH (18:30)
[2017-09-01] MEDS: POLYETHYLENE GLYCOL 3350 119 GM BTL PO SCH (18:49)
[2017-09-01] MEDS: ATORVASTATIN CA 20 MG TABLET (FP) PO SCH (21:06)
[2017-09-01] MEDS: MONTELUKAST NA 10 MG TABLET PO SCH (21:06)
[2017-09-01] MEDS: TAMSULOSIN HCL 0.4 MG CAP.ER.24H (FP) PO SCH (21:06)
[2017-09-01] MEDS: ZOLPIDEM TARTRATE 5 MG TABLET PO PRN (21:06)
[2017-09-01] MEDS: traZODone HCL 50 MG TABLET (FP) PO SCH (21:06)
[2017-09-02] MEDS ORDERED: PT OWN MED DRAWER 7, Y5N ONE ×3 (07:59→11:22)
[2017-09-02] MEDS: LIPASE/PROTEASE/AMYLASE 36,000 UNIT CAPSULE PO SCH ×3 (08:16→16:33)
[2017-09-02] MEDS: DOXYCYCLINE HYCLATE 100 MG CAPSULE PO SCH ×2 (08:16→16:33)
--- NOTE | 2017-09-02 09:18 | PN ---
Progress Note, Physician Chief Complaint: Feels OK - Current Medication List Current Medications: Active Medications Acetaminophen (Tylenol -) 325 mg PO Q8H PRN PRN Reason: PAIN Last Admin: 09/01/17 16:48 Dose: 325 mg Acetaminophen (Tylenol -) 650 mg PO Q4H PRN PRN Reason: FEVER OR PAIN Albuterol Sulfate (Ventolin Hfa Inhaler -) 1 puff IH Q6H PRN PRN Reason: SHORT OF BREATH/WHEEZING Atorvastatin Calcium (Lipitor -) 20 mg PO HS [facility] Last Admin: 09/01/17 21:06 Dose: 20 mg Benzocaine/Menthol (Cepacol Lozenge -) 1 each MM PRN PRN PRN Reason: SORE THROAT Last Admin: 09/01/17 16:47 Dose: 1 each Budesonide/Formoterol Fumarate (Symbicort 160/4.5mcg -) 1 puff IH DAILY [facility] Last Admin: 09/01/17 13:12 Dose: 1 puff Calcium Carbonate (Calcium Carb Oral Suspension -) 500 mg PO DAILY [facility] Last Admin: 09/01/17 13:02 Dose: 500 mg Carvedilol (Coreg -) 12.5 mg PO BID [facility] Last Admin: 09/01/17 21:07 Dose: Not Given Doxycycline Hyclate (Vibramycin -) 100 mg PO BID@0800,1600 [facility] Last Admin: 09/02/17 08:16 Dose: 100 mg Fluticasone Propionate (Flonase -) 1 spray NS BID [facility] Last Admin: 09/01/17 21:07 Dose: 1 spray Montelukast Sodium (Singulair -) 10 mg PO [facility] Last Admin: 09/01/17 21:06 Dose: 10 mg Ondansetron HCl (Zofran Injection) 4 mg IVPUSH Q4H PRN PRN Reason: NAUSEA AND/OR VOMITING Oxycodone HCl (Roxicodone -) 5 mg PO Q8H PRN PRN Reason: PAIN Last Admin: 09/01/17 16:48 Dose: 5 mg Pancrelipase (Creon Dr 36,000 Units Capsule) 1 cap PO TIDCM [facility] Last Admin: 09/02/17 08:16 Dose: 1 cap Pantoprazole Sodium (Protonix -) 40 mg PO DAILY [facility] Last Admin: 12/26/17 13:01 Dose: 40 mg Polyethylene Glycol (Miralax (For Daily Use) -) 17 gm PO DAILY [facility] Last Admin: 09/01/17 18:49 Dose: 17 grams Saliva Substitute (Mouthkote Solution -) 1 applic MM DAILY [facility] Last Admin: 09/01/17 13:08 Dose: 1 applic Tamsulosin HCl (Flomax -) 0.4 mg PO HS [facility] Last Admin: 09/01/17 21:06 Dose: 0.4 mg Tiotropium [place] (Spiriva -) 1 puff IH DAILY [facility] Last Admin: 09/01/17 13:03 Dose: 1 puff Trazodone HCl (Desyrel -) 100 mg PO HS [facility] Last Admin: 09/01/17 21:06 Dose: 100 mg Valsartan (Diovan -) 40 mg PO DAILY [facility] Last Admin: 09/01/17 13:01 Dose: 40 mg Zolpidem Tartrate (Ambien -) 5 mg PO HS PRN PRN Reason: INSOMNIA Last Admin: 09/01/17 21:06 Dose: 5 mg - Objective Vital Signs: Vital Signs Temperature 98.8 F 09/02/17 05:12 Pulse Rate 90 09/02/17 05:12 Respiratory Rate 20 09/02/17 05:12 Blood Pressure 120/67 09/02/17 05:12 O2 Sat by Pulse Oximetry (%) 95 09/01/17 21:00 Constitutional: Yes: No Distress Eyes: Yes: WNL HENT: Yes: WNL Neck: Yes: WNL Cardiovascular: Yes: Regular Rate and Rhythm Respiratory: Yes: WNL Gastrointestinal: Yes: WNL ...Rectal Exam: Yes: WNL, Deferred Genitourinary: Yes: Oliguria Edema: Yes Edema: LLE: 1+, RLE: 1+ Neurological: Yes: Alert Labs: CBC, BMP 09/01/17 09:00 INR, PTT INR 1.32 (0.82-1.09) H 08/12/17 07:45 Assessment/Plan Dialysis in am
[2017-09-02 09:19] LABS: CHLORIDE 102 mmol/L (98-107); SODIUM 138 mmol/L (136-145)
[2017-09-02 09:52] LABS: ANION GAP 9 (8-16); BLOOD UREA NITROGEN 29 mg/dL (7-18); CALCIUM 7.8 mg/dL (8.5-10.1); CO2 27 mmol/L (21-32); CREATININE 4.1 mg/dL (0.7-1.3); GLUCOSE,RANDOM 103 mg/dL (74-106)
[2017-09-02] MEDS ORDERED: APIXABAN 2.5 MG TABLET PO SCH (10:00)
[2017-09-02] MEDS ORDERED: FUROSEMIDE 40 MG TABLET (FP) PO ONE (10:30)
[2017-09-02] MEDS: FLUTICASONE PROP 0.05% 16 GM NASAL SPRAY NS SCH ×2 (10:45→21:31)
[2017-09-02] MEDS: PANTOPRAZOLE 40 MG TABLET (FP) PO SCH (10:45)
[2017-09-02] MEDS: CARVEDILOL 12.5 MG TABLET (FP) PO SCH ×2 (10:46→21:30)
[2017-09-02] MEDS: LYTES/YERBA SANTA 240 ML BOTTLE MM SCH (10:46)
[2017-09-02] MEDS: CALCIUM CARBONATE SUSPENSION - 500 MG/5 ML ML PO SCH (10:46)
[2017-09-02] MEDS: VALSARTAN 40 MG TABLET (FP) PO SCH (10:46)
[2017-09-02] MEDS: TIOTROPIUM BROMIDE 18 MCG/INH (DEVICE W/ 5 CAPSULES) IH SCH (10:47)
[2017-09-02] MEDS: BENZOCAINE/MENTH/CETYLPYRD CL 1 EACH LOZENGE MM PRN (10:49)
[2017-09-02] MEDS: POLYETHYLENE GLYCOL 3350 119 GM BTL PO SCH (10:55)
[2017-09-02] MEDS: BUDESONIDE/FORMETEROL FUMARATE 160/4.5 mcg INHALER IH SCH (10:58)
--- NOTE | 2017-09-02 12:00 | PN ---
Progress Note, Physician History of Present Illness: Tolerating diet, continued peripheral edema despite HD via right PC TTHS and diuretics. - Current Medication List Current Medications: Active Medications Acetaminophen (Tylenol -) 325 mg PO Q8H PRN PRN Reason: PAIN Last Admin: 09/01/17 16:48 Dose: 325 mg Acetaminophen (Tylenol -) 650 mg PO Q4H PRN PRN Reason: FEVER OR PAIN Albuterol Sulfate (Ventolin Hfa Inhaler -) 1 puff IH Q6H PRN PRN Reason: SHORT OF BREATH/WHEEZING Atorvastatin Calcium (Lipitor -) 20 mg PO HS [facility] Last Admin: 09/01/17 21:06 Dose: 20 mg Benzocaine/Menthol (Cepacol Lozenge -) 1 each MM PRN PRN PRN Reason: SORE THROAT Last Admin: 09/02/17 10:49 Dose: 1 each Budesonide/Formoterol Fumarate (Symbicort 160/4.5mcg -) 1 puff IH DAILY [facility] Last Admin: 09/02/17 10:58 Dose: 1 puff Calcium Carbonate (Calcium Carb Oral Suspension -) 500 mg PO DAILY [facility] Last Admin: 09/02/17 10:46 Dose: 500 mg Carvedilol (Coreg -) 12.5 mg PO BID [facility] Last Admin: 09/02/17 10:46 Dose: Not Given Doxycycline Hyclate (Vibramycin -) 100 mg PO BID@0800,1600 [facility] Last Admin: 09/02/17 08:16 Dose: 100 mg Fluticasone Propionate (Flonase -) 1 spray NS BID [facility] Last Admin: 09/02/17 10:45 Dose: 1 spray Montelukast Sodium (Singulair -) 10 mg PO HS [facility] Last Admin: 09/01/17 21:06 Dose: 10 mg Ondansetron HCl (Zofran Injection) 4 mg IVPUSH Q4H PRN PRN Reason: NAUSEA AND/OR VOMITING Oxycodone HCl (Roxicodone -) 5 mg PO Q8H PRN PRN Reason: PAIN Last Admin: 09/01/17 16:48 Dose: 5 mg Pancrelipase (Creon Dr 36,000 Units Capsule) 1 cap PO TIDCM [facility] Last Admin: 09/02/17 11:48 Dose: 1 cap Pantoprazole Sodium (Protonix -) 40 mg PO DAILY [facility] Last Admin: 09/02/17 10:45 Dose: 40 mg Polyethylene Glycol (Miralax (For Daily Use) -) 17 gm PO DAILY [facility] Last Admin: 09/02/17 10:55 Dose: 17 grams Saliva Substitute (Mouthkote Solution -) 1 applic MM DAILY [facility] Last Admin: 09/02/17 10:46 Dose: 1 applic Tamsulosin HCl (Flomax -) 0.4 mg PO HS [facility] Last Admin: 09/01/17 21:06 Dose: 0.4 mg Tiotropium [place] (Spiriva -) 1 puff IH DAILY [facility] Last Admin: 09/02/17 10:47 Dose: 1 puff Trazodone HCl (Desyrel -) 100 mg PO [facility] Last Admin: 09/01/17 21:06 Dose: 100 mg Valsartan (Diovan -) 40 mg PO DAILY [facility] Last Admin: 09/02/17 10:46 Dose: Not Given Zolpidem Tartrate (Ambien -) 5 mg PO HS PRN PRN Reason: INSOMNIA Last Admin: 09/01/17 21:06 Dose: 5 mg - Objective Vital Signs: Vital Signs Temperature 98.8 F 09/02/17 05:12 Pulse Rate 90 09/02/17 05:12 Respiratory Rate 20 09/02/17 05:12 Blood Pressure 120/67 09/02/17 05:12 O2 Sat by Pulse Oximetry (%) 95 09/01/17 21:00 Constitutional: Yes: No Distress, Calm Neck: Yes: Supple Cardiovascular: Yes: Pulse Irregular Respiratory: Yes: Regular, Diminished Gastrointestinal: Yes: Normal Bowel Sounds, Soft, Abdomen, Obese Edema: Yes Edema: LLE: 2+, RLE: 2+ Labs: CBC, BMP 09/01/17 09:00 09/02/17 07:45 INR, PTT INR 1.32 (0.82-1.09) H 08/12/17 07:45 Problem List - Problems (1) Anemia Code(s): D64.9 - ANEMIA, UNSPECIFIED Qualifiers: Anemia type: due to chronic kidney disease (2) CVD (cerebrovascular disease) Code(s): I67.9 - CEREBROVASCULAR DISEASE, UNSPECIFIED (3) Hx of CABG Code(s): Z95.1 - PRESENCE OF AORTOCORONARY BYPASS GRAFT (4) Hypercholesterolemia Code(s): E78.00 - PURE HYPERCHOLESTEROLEMIA, UNSPECIFIED (5) Presence of permanent cardiac pacemaker Code(s): Z95.0 - PRESENCE OF CARDIAC PACEMAKER (6) Sick sinus syndrome Code(s): I49.5 - SICK SINUS SYNDROME (7) CHF Congestive heart failure Code(s): I50.9 - HEART FAILURE, UNSPECIFIED (8) Abdominal aortic aneurysm (AAA) Code(s): I71.4 - ABDOMINAL AORTIC ANEURYSM, WITHOUT RUPTURE Qualifiers: Presence of rupture: without rupture Qualified Code(s): I71.4 - Abdominal aortic aneurysm, without rupture (9) Ischemic colitis Code(s): K55.9 - VASCULAR DISORDER OF INTESTINE, UNSPECIFIED (10) Rectal bleeding Code(s): K62.5 - HEMORRHAGE OF ANUS AND RECTUM (11) [id number] kidney injury Code(s): N17.9 - ACUTE KIDNEY FAILURE, UNSPECIFIED; N18.9 - CHRONIC KIDNEY DISEASE, UNSPECIFIED Qualifiers: Acute renal failure type: unspecified Chronic kidney disease stage: on chronic dialysis Qualified Code(s): N17.9 - Acute kidney failure, unspecified ; N18.9 - Chronic kidney disease, unspecified; N18.9 - Chronic kidney disease, unspecified; Z99.2 - Dependence on renal dialysis; Z99.2 - Dependence on renal dialysis; Z99.2 - Dependence on renal dialysis; Z99.2 - Dependence on renal dialysis Assessment/Plan 1. Rectal bleed, underlying diverticulitis with partial SBO with dilated small bowel loops - resolved 2. CAD s/p CABG, angina pectoris 3. Persistent AF with underlying PPM for sick sinus syndrome 4. ESRD on HD 5. Hypercholesterolemia 6. CVA/TIA 7. COPD 8. TAA and AAA 9. Anemia of CKD PLAN: 1. Hemodialysis TTHS via right PC and diuresis per renal 2. Plan for AVF 3. Continue Carvedilol 12.5 bid 4. Continue Atorvastatin 20 qhs 5. Monitor CBC and transfuse PRBC as needed 6. TAA and AAA likely also needs surveillance probably not ready for intervention 7. Continue Diovan 40 qd with uptitration as tolerated 8. Compression therapy with GABE wraps, encourage ambulation 9. Given no further LGIB over last several weeks, will resume Eliquis 5 bid (Cr> 1.5, age<80, wt>60 Kg) he acknowledges lack of data with use in ESRD, but declines coumadin per INR after discussion. 10. Abx course per ID
--- NOTE | 2017-09-02 13:55 | PN ---
Progress Note, Physician History of Present Illness: Pt seen and examined at bedside. He is awake and alert. He denies shortness of breath. - Current Medication List Current Medications: Active Medications Acetaminophen (Tylenol -) 325 mg PO Q8H PRN PRN Reason: PAIN Last Admin: 09/01/17 16:48 Dose: 325 mg Acetaminophen (Tylenol -) 650 mg PO Q4H PRN PRN Reason: FEVER OR PAIN Albuterol Sulfate (Ventolin Hfa Inhaler -) 1 puff IH Q6H PRN PRN Reason: SHORT OF BREATH/WHEEZING Apixaban (Eliquis -) 5 mg PO BID [facility] Atorvastatin Calcium (Lipitor -) 20 mg PO HS [facility] Last Admin: 09/01/17 21:06 Dose: 20 mg Benzocaine/Menthol (Cepacol Lozenge -) 1 each MM PRN PRN PRN Reason: SORE THROAT Last Admin: 09/02/17 10:49 Dose: 1 each Budesonide/Formoterol Fumarate (Symbicort 160/4.5mcg -) 1 puff IH DAILY [facility] Last Admin: 09/02/17 10:58 Dose: 1 puff Calcium Carbonate (Calcium Carb Oral Suspension -) 500 mg PO DAILY [facility] Last Admin: 09/02/17 10:46 Dose: 500 mg Carvedilol (Coreg -) 12.5 mg PO BID [facility] Last Admin: 09/02/17 10:46 Dose: Not Given Doxycycline Hyclate (Vibramycin -) 100 mg PO BID@0800,1600 [facility] Last Admin: 09/02/17 08:16 Dose: 100 mg Fluticasone Propionate (Flonase -) 1 spray NS BID [facility] Last Admin: 09/02/17 10:45 Dose: 1 spray Montelukast Sodium (Singulair -) 10 mg PO HS [facility] Last Admin: 09/01/17 21:06 Dose: 10 mg Ondansetron HCl (Zofran Injection) 4 mg IVPUSH Q4H PRN PRN Reason: NAUSEA AND/OR VOMITING Oxycodone HCl (Roxicodone -) 5 mg PO Q8H PRN PRN Reason: PAIN Last Admin: 09/01/17 16:48 Dose: 5 mg Pancrelipase (Creon Dr 36,000 Units Capsule) 1 cap PO TIDCM [facility] Last Admin: 09/02/17 11:48 Dose: 1 cap Pantoprazole Sodium (Protonix -) 40 mg PO DAILY [facility] Last Admin: 09/02/17 10:45 Dose: 40 mg Polyethylene Glycol (Miralax (For Daily Use) -) 17 gm PO DAILY [facility] Last Admin: 09/02/17 10:55 Dose: 17 grams Saliva Substitute (Mouthkote Solution -) 1 applic MM DAILY [facility] Last Admin: 09/02/17 10:46 Dose: 1 applic Tamsulosin HCl (Flomax -) 0.4 mg PO HS [facility] Last Admin: 09/01/17 21:06 Dose: 0.4 mg Tiotropium [place] (Spiriva -) 1 puff IH DAILY [facility] Last Admin: 09/02/17 10:47 Dose: 1 puff Trazodone HCl (Desyrel -) 100 mg PO HS [facility] Last Admin: 09/01/17 21:06 Dose: 100 mg Valsartan (Diovan -) 40 mg PO DAILY [facility] Last Admin: 09/02/17 10:46 Dose: Not Given Zolpidem Tartrate (Ambien -) 5 mg PO HS PRN PRN Reason: INSOMNIA Last Admin: 09/01/17 21:06 Dose: 5 mg - Objective Vital Signs: Vital Signs Temperature 98.6 F 09/02/17 09:00 Pulse Rate 71 09/02/17 09:00 Respiratory Rate 20 09/02/17 09:00 Blood Pressure 96/42 09/02/17 09:00 O2 Sat by Pulse Oximetry (%) 95 09/02/17 09:00 Constitutional: Yes: Calm Eyes: Yes: Conjunctiva Clear HENT: Yes: Atraumatic Neck: Yes: Supple Cardiovascular: Yes: S1, S2 Respiratory: Yes: CTA Bilaterally Gastrointestinal: Yes: Soft Genitourinary: Yes: WNL Musculoskeletal: Yes: WNL Edema: Yes Edema: LLE: 2+, RLE: 2+ Neurological: Yes: Oriented Psychiatric: Yes: Oriented Labs: CBC, BMP 09/01/17 09:00 09/02/17 07:45 INR, PTT INR 1.32 (0.82-1.09) H 08/12/17 07:45 Problem List - Problems (1) CKD (chronic kidney disease) Code(s): N18.9 - CHRONIC KIDNEY DISEASE, UNSPECIFIED Qualifiers: Chronic kidney disease stage: stage 4 (severe) Qualified Code(s): N18.4 - Chronic kidney disease, stage 4 (severe) (2) Anemia Code(s): D64.9 - ANEMIA, UNSPECIFIED Qualifiers: Anemia type: due to chronic kidney disease (3) Abdominal pain Code(s): R10.9 - UNSPECIFIED ABDOMINAL PAIN Qualifiers: Abdominal location: unspecified location Qualified Code(s): R10.9 - Unspecified abdominal pain (4) Rectal bleeding Code(s): K62.5 - HEMORRHAGE OF ANUS AND RECTUM (5) Acute exacerbation of COPD with asthma Code(s): J44.1 - CHRONIC OBSTRUCTIVE PULMONARY DISEASE W (ACUTE) EXACERBATION; J45.901 - UNSPECIFIED ASTHMA WITH (ACUTE) EXACERBATION (6) CHF (congestive heart failure) Code(s): I50.9 - HEART FAILURE, UNSPECIFIED Qualifiers: Congestive heart failure type: combined Congestive heart failure chronicity : acute on chronic Qualified Code(s): I50.43 - Acute on chronic combined systolic (congestive) and diastolic (congestive) heart failure Assessment/Plan Current Medications Generic Name Dose Route Start Last Admin Trade Name Freq PRN Reason Stop Dose Admin Acetaminophen 325 mg 08/28/17 17:32 09/01/17 16:48 Tylenol - PO 325 mg Q8H PRN Administration PAIN Acetaminophen 650 mg 08/28/17 17:35 Tylenol - PO Q4H PRN FEVER OR PAIN Albuterol Sulfate 1 puff 08/25/17 17:58 Ventolin Hfa Inhaler - IH Q6H PRN SHORT OF BREATH/WHEEZING Apixaban 5 mg 09/02/17 12:45 Eliquis - PO BID [facility] Atorvastatin Calcium 20 mg 08/25/17 22:00 09/01/17 21:06 Lipitor - PO 20 mg HS [facility] Administration Benzocaine/Menthol 1 each 08/29/17 17:11 09/02/17 10:49 Cepacol Lozenge - MM 1 each PRN PRN Administration SORE THROAT Budesonide/Formoterol Fumarate 1 puff 08/26/17 10:00 09/02/17 10:58 Symbicort 160/4.5mcg - IH 1 puff DAILY [facility] Administration Calcium Carbonate 500 mg 08/26/17 10:00 09/02/17 10:46 Calcium Carb Oral Suspension - PO 500 mg DAILY [facility] Administration Carvedilol 12.5 mg 08/25/17 22:00 09/02/17 10:46 Coreg - PO Not Given BID [facility] Doxycycline Hyclate 100 mg 09/01/17 16:00 09/02/17 08:16 Vibramycin - PO 100 mg BID@0800,1600 [facility] Administration Fluticasone Propionate 1 spray 08/25/17 22:00 09/02/17 10:45 Flonase - NS 1 spray BID [facility] Administration Montelukast Sodium 10 mg 08/25/17 22:00 09/01/17 21:06 Singulair - PO 10 mg HS [facility] Administration Ondansetron HCl 4 mg 08/25/17 17:58 Zofran Injection IVPUSH Q4H PRN NAUSEA AND/OR VOMITING Oxycodone HCl 5 mg 09/01/17 16:35 09/01/17 16:48 Roxicodone - PO 5 mg Q8H PRN Administration PAIN Pancrelipase 1 cap 08/26/17 08:00 09/02/17 11:48 [place] 36,000 Units Capsule PO 1 cap TIDCM [facility] Administration Pantoprazole Sodium 40 mg 08/29/17 10:00 09/02/17 10:45 Protonix - PO 40 mg DAILY [facility] Administration Polyethylene Glycol 17 gm 09/01/17 18:30 09/02/17 10:55 Miralax (For Daily Use) - PO 17 grams DAILY [facility] Administration Saliva Substitute 1 applic 08/26/17 10:00 09/02/17 10:46 Mouthkote Solution - MM 1 applic DAILY [facility] Administration Tamsulosin HCl 0.4 mg 08/25/17 22:00 09/01/17 21:06 Flomax - PO 0.4 mg HS [facility] Administration Tiotropium [place] 1 puff 08/26/17 10:00 09/02/17 10:47 Spiriva - IH 1 puff DAILY [facility] Administration Trazodone HCl 100 mg 08/25/17 22:00 09/01/17 21:06 Desyrel - PO 100 mg HS [facility] Administration Valsartan 40 mg 09/01/17 10:00 09/02/17 10:46 Diovan - PO Not Given DAILY [facility] Zolpidem Tartrate 5 mg 08/31/17 22:00 12/26/17 21:06 Ambien - PO 5 mg HS PRN Administration INSOMNIA Impression 1. ESRD 2. ALAN 3. anemia 4. GI bleed 5. BPH 6. a-fib 7. aortic aneurysm 8. COPD 9. insomnia 10. SBO Plan - HD in am - will give a dose of lasix - pt has HD set up as outpt tomorrow, if he does not leave today he will not be able to start on Thursday as outpt - pt tolerating UF - cont venofer - cont epogen - pt will still need a fistula - will follow closely - cont mattie Ortega
[2017-09-02] MEDS: APIXABAN 5 MG TABLET PO SCH ×2 (14:00→21:30)
--- NOTE | 2017-09-02 14:48 | PN ---
Progress Note, Physician Chief Complaint: small bowel obstruction History of Present Illness: 71 yo male with a MMP with history of intermittent constipation. Patient states he had a colonoscopy 5 years previous which was normal. CTscan on 08/17 shows distended stomach and small bowel, contrast was very proximal. Only previous abdominal surgery was an open appendectomy. abdominal pain is mostly resolved, having flatus and bowel movements. Tolerated renal diet. - Current Medication List Current Medications: Active Medications Acetaminophen (Tylenol -) 325 mg PO Q8H PRN PRN Reason: PAIN Last Admin: 09/01/17 16:48 Dose: 325 mg Acetaminophen (Tylenol -) 650 mg PO Q4H PRN PRN Reason: FEVER OR PAIN Albuterol Sulfate (Ventolin Hfa Inhaler -) 1 puff IH Q6H PRN PRN Reason: SHORT OF BREATH/WHEEZING Apixaban (Eliquis -) 5 mg PO BID [facility] Last Admin: 09/02/17 14:00 Dose: 5 mg Atorvastatin Calcium (Lipitor -) 20 mg PO HS [facility] Last Admin: 09/01/17 21:06 Dose: 20 mg Benzocaine/Menthol (Cepacol Lozenge -) 1 each MM PRN PRN PRN Reason: SORE THROAT Last Admin: 09/02/17 10:49 Dose: 1 each Budesonide/Formoterol Fumarate (Symbicort 160/4.5mcg -) 1 puff IH DAILY [facility] Last Admin: 09/02/17 10:58 Dose: 1 puff Calcium Carbonate (Calcium Carb Oral Suspension -) 500 mg PO DAILY [facility] Last Admin: 09/02/17 10:46 Dose: 500 mg Carvedilol (Coreg -) 12.5 mg PO BID [facility] Last Admin: 09/02/17 10:46 Dose: Not Given Doxycycline Hyclate (Vibramycin -) 100 mg PO BID@0800,1600 [facility] Last Admin: 09/02/17 08:16 Dose: 100 mg Epoetin Anshu (Epogen -) 4,000 units IVPUSH ONCE ONE Stop: 09/03/17 13:56 Fluticasone Propionate (Flonase -) 1 spray NS BID [facility] Last Admin: 09/02/17 10:45 Dose: 1 spray Iron Sucrose 100 mg/ Sodium (Chloride) 100 mls @ 200 mls/hr IVPB ONCE ONE Stop: 09/03/17 14:24 Montelukast Sodium (Singulair -) 10 mg PO HS [facility] Last Admin: 09/01/17 21:06 Dose: 10 mg Ondansetron HCl (Zofran Injection) 4 mg IVPUSH Q4H PRN PRN Reason: NAUSEA AND/OR VOMITING Oxycodone HCl (Roxicodone -) 5 mg PO Q8H PRN PRN Reason: PAIN Last Admin: 09/01/17 16:48 Dose: 5 mg Pancrelipase (Creon Dr 36,000 Units Capsule) 1 cap PO TIDCM [facility] Last Admin: 09/02/17 11:48 Dose: 1 cap Pantoprazole Sodium (Protonix -) 40 mg PO DAILY [facility] Last Admin: 09/02/17 10:45 Dose: 40 mg Polyethylene Glycol (Miralax (For Daily Use) -) 17 gm PO DAILY [facility] Last Admin: 09/02/17 10:55 Dose: 17 grams Saliva Substitute (Mouthkote Solution -) 1 applic MM DAILY [facility] Last Admin: 09/02/17 10:46 Dose: 1 applic Tamsulosin HCl (Flomax -) 0.4 mg PO HS [facility] Last Admin: 09/01/17 21:06 Dose: 0.4 mg Tiotropium [place] (Spiriva -) 1 puff IH DAILY [facility] Last Admin: 09/02/17 10:47 Dose: 1 puff Trazodone HCl (Desyrel -) 100 mg PO HS [facility] Last Admin: 09/01/17 21:06 Dose: 100 mg Valsartan (Diovan -) 40 mg PO DAILY [facility] Last Admin: 09/02/17 10:46 Dose: Not Given Zolpidem Tartrate (Ambien -) 5 mg PO HS PRN PRN Reason: INSOMNIA Last Admin: 09/01/17 21:06 Dose: 5 mg - Objective Vital Signs: Vital Signs Temperature 98.9 F 09/02/17 13:59 Pulse Rate 68 09/02/17 13:59 Respiratory Rate 18 09/02/17 13:59 Blood Pressure 96/53 09/02/17 13:59 O2 Sat by Pulse Oximetry (%) 95 09/02/17 09:00 Vital Signs Period Temp Pulse Resp BP Sys/Whitaker Pulse Ox Last 24 Hr 97.9 F-98.9 F 63-90 18-20 84-120/42-67 95-95 Constitutional: Yes: No Distress, Calm, Obese Eyes: Yes: EOM Intact, PERRL HENT: Yes: Atraumatic, Normocephalic Neck: Yes: Supple, Trachea Midline Cardiovascular: Yes: Regular Rate and Rhythm, S1, S2 Respiratory: Yes: Regular, CTA Bilaterally, Cough (non productive) Gastrointestinal: Yes: Normal Bowel Sounds, Soft ...Rectal Exam: No: Deferred Genitourinary: No: CVA Tenderness - Left, CVA Tenderness - Right Musculoskeletal: No: Muscle Pain, Muscle Weakness Edema: Yes Edema: LUE: Trace, RUE: 2+, LLE: 2+, RLE: 2+ Peripheral Pulses: Left Doralis Pedis: 2+, Right Dorsalis Pedis: 2+ Integumentary: No: Jaundice, Rash Neurological: Yes: Alert, Oriented Psychiatric: Yes: Alert, Oriented Labs: CBC, BMP 09/01/17 09:00 09/02/17 07:45 INR, PTT INR 1.32 (0.82-1.09) H 08/12/17 07:45 Problem List - Problems (1) SBO (small bowel obstruction) Assessment/Plan: 71yo male MMP presents with a partial SBO, h/o appendectomy, recent normal colonoscopy, WBC is normal. started scheduled dialysis. resolved partial SBO. Tolerating renal diet, GI function is reported as more normal and regular. expresses concerns about being discharged given recent cultures. ID will followup Tolerating renal diet consider stool softener and fiber encourage ambulation leg elevation above heart-level He does not require follow-up with general surgery upon discharge Code(s): K56.609 - UNSP INTESTNL OBST, UNSP TO PARTIAL VERSUS COMPLETE OBST (2) Abdominal pain Code(s): R10.9 - UNSPECIFIED ABDOMINAL PAIN Qualifiers: Abdominal location: unspecified location Qualified Code(s): R10.9 - Unspecified abdominal pain (3) Ileus, unspecified Code(s): K56.7 - ILEUS, UNSPECIFIED (4) Acute diverticulitis Code(s): K57.92 - DVTRCLI OF INTEST, PART UNSP, W/O PERF OR ABSCESS W/O BLEED (5) Anemia Code(s): D64.9 - ANEMIA, UNSPECIFIED Qualifiers: Anemia type: due to chronic kidney disease (6) Hypercholesterolemia Code(s): E78.00 - PURE HYPERCHOLESTEROLEMIA, UNSPECIFIED (7) CHF Congestive heart failure Code(s): I50.9 - HEART FAILURE, UNSPECIFIED
--- NOTE | 2017-09-02 16:14 | PN ---
Progress Note, Physician History of Present Illness: doing well no complaints - Current Medication List Current Medications: Active Medications Acetaminophen (Tylenol -) 325 mg PO Q8H PRN PRN Reason: PAIN Last Admin: 09/01/17 16:48 Dose: 325 mg Acetaminophen (Tylenol -) 650 mg PO Q4H PRN PRN Reason: FEVER OR PAIN Albuterol Sulfate (Ventolin Hfa Inhaler -) 1 puff IH Q6H PRN PRN Reason: SHORT OF BREATH/WHEEZING Apixaban (Eliquis -) 5 mg PO BID [facility] Last Admin: 09/02/17 14:00 Dose: 5 mg Atorvastatin Calcium (Lipitor -) 20 mg PO HS [facility] Last Admin: 09/01/17 21:06 Dose: 20 mg Benzocaine/Menthol (Cepacol Lozenge -) 1 each MM PRN PRN PRN Reason: SORE THROAT Last Admin: 09/02/17 10:49 Dose: 1 each Budesonide/Formoterol Fumarate (Symbicort 160/4.5mcg -) 1 puff IH DAILY [facility] Last Admin: 09/02/17 10:58 Dose: 1 puff Calcium Carbonate (Calcium Carb Oral Suspension -) 500 mg PO DAILY [facility] Last Admin: 09/02/17 10:46 Dose: 500 mg Carvedilol (Coreg -) 12.5 mg PO BID [facility] Last Admin: 09/02/17 10:46 Dose: Not Given Doxycycline Hyclate (Vibramycin -) 100 mg PO BID@0800,1600 [facility] Last Admin: 09/02/17 08:16 Dose: 100 mg Epoetin [place] (Epogen -) 4,000 units IVPUSH ONCE ONE Stop: 09/03/17 13:56 Fluticasone Propionate (Flonase -) 1 spray NS BID [facility] Last Admin: 09/02/17 10:45 Dose: 1 spray Iron Sucrose 100 mg/ Sodium (Chloride) 100 mls @ 200 mls/hr IVPB ONCE ONE Stop: 09/03/17 14:24 Montelukast Sodium (Singulair -) 10 mg PO [facility] Last Admin: 09/01/17 21:06 Dose: 10 mg Ondansetron HCl (Zofran Injection) 4 mg IVPUSH Q4H PRN PRN Reason: NAUSEA AND/OR VOMITING Oxycodone HCl (Roxicodone -) 5 mg PO Q8H PRN PRN Reason: PAIN Last Admin: 09/01/17 16:48 Dose: 5 mg Pancrelipase (Creon Dr 36,000 Units Capsule) 1 cap PO TIDCM [facility] Last Admin: 09/02/17 11:48 Dose: 1 cap Pantoprazole Sodium (Protonix -) 40 mg PO DAILY [facility] Last Admin: 09/02/17 10:45 Dose: 40 mg Polyethylene Glycol (Miralax (For Daily Use) -) 17 gm PO DAILY [facility] Last Admin: 09/02/17 10:55 Dose: 17 grams Saliva Substitute (Mouthkote Solution -) 1 applic MM DAILY [facility] Last Admin: 09/02/17 10:46 Dose: 1 applic Tamsulosin HCl (Flomax -) 0.4 mg PO HS [facility] Last Admin: 09/01/17 21:06 Dose: 0.4 mg Tiotropium [place] (Spiriva -) 1 puff IH DAILY [facility] Last Admin: 09/02/17 10:47 Dose: 1 puff Trazodone HCl (Desyrel -) 100 mg PO HS [facility] Last Admin: 09/01/17 21:06 Dose: 100 mg Valsartan (Diovan -) 40 mg PO DAILY [facility] Last Admin: 09/02/17 10:46 Dose: Not Given Zolpidem Tartrate (Ambien -) 5 mg PO HS PRN PRN Reason: INSOMNIA Last Admin: 09/01/17 21:06 Dose: 5 mg - Objective Vital Signs: Vital Signs Temperature 98.9 F 09/02/17 13:59 Pulse Rate 68 09/02/17 13:59 Respiratory Rate 18 09/02/17 13:59 Blood Pressure 96/53 09/02/17 13:59 O2 Sat by Pulse Oximetry (%) 95 09/02/17 09:00 Constitutional: Yes: No Distress, Calm Cardiovascular: Yes: Regular Rate and Rhythm Respiratory: Yes: Regular, Rhonchi, Other Gastrointestinal: Yes: Normal Bowel Sounds, Soft Musculoskeletal: Yes: WNL Extremities: Yes: Other Edema: LLE: 3+, RLE: 3+ Integumentary: Yes: WNL Neurological: Yes: Alert, Oriented Psychiatric: Yes: Alert, Oriented Labs: CBC, BMP 09/01/17 09:00 09/02/17 07:45 INR, PTT INR 1.32 (0.82-1.09) H 08/12/17 07:45 Assessment/Plan Problem List - Problems (1) Rectal bleeding Assessment/Plan: resolved Code(s): K62.5 - HEMORRHAGE OF ANUS AND RECTUM (2) CHF (congestive heart failure) Assessment/Plan: stable no sob Code(s): I50.9 - HEART FAILURE, UNSPECIFIED Qualifiers: Congestive heart failure type: combined Congestive heart failure chronicity : acute on chronic Qualified Code(s): I50.43 - Acute on chronic combined systolic (congestive) and diastolic (congestive) heart failure (3) Acute diverticulitis Assessment/Plan: on iv abx id on board Code(s): K57.92 - DVTRCLI OF INTEST, PART UNSP, W/O PERF OR ABSCESS W/O BLEED (4) Anemia Assessment/Plan: monitor s/p prbc transfusion Code(s): D64.9 - ANEMIA, UNSPECIFIED Qualifiers: Anemia type: unspecified type Qualified Code(s): D64.9 - Anemia, unspecified (5) CKD (chronic kidney disease) Assessment/Plan: monitor...cr LITTLE BETTER on ivf...NEED FOR HD renal on board Code(s): N18.9 - CHRONIC KIDNEY DISEASE, UNSPECIFIED Qualifiers: Chronic kidney disease stage: stage 4 (severe) Qualified Code(s): N18.4 - Chronic kidney disease, stage 4 (severe) (6) CHF Congestive heart failure Code(s): I50.9 - HEART FAILURE, UNSPECIFIED (7) SBO (small bowel obstruction) Assessment/Plan: npo, ivf.. iv pain meds ngt in place as xray was worse today Code(s): K56.609 - UNSP INTESTNL OBST, UNSP TO PARTIAL VERSUS COMPLETE OBST (8) Hypercholesterolemia Code(s): E78.00 - PURE HYPERCHOLESTEROLEMIA, UNSPECIFIED edema of the legs plan continue abx incentive isamar rest as per nephrology dialysis
[2017-09-02] MEDS: MONTELUKAST NA 10 MG TABLET PO SCH (21:30)
[2017-09-02] MEDS: ZOLPIDEM TARTRATE 5 MG TABLET PO PRN (21:30)
[2017-09-02] MEDS: TAMSULOSIN HCL 0.4 MG CAP.ER.24H (FP) PO SCH (21:30)
[2017-09-02] MEDS: traZODone HCL 50 MG TABLET (FP) PO SCH (21:30)
[2017-09-02] MEDS: ATORVASTATIN CA 20 MG TABLET (FP) PO SCH (21:30)
[2017-09-03 06:11] VITALS: TEMP 98.3
[2017-09-03] MEDS ORDERED: PT OWN MED DRAWER 7, Y5N ONE ×2 (08:04→10:35)
[2017-09-03] MEDS: DOXYCYCLINE HYCLATE 100 MG CAPSULE PO SCH (08:09)
[2017-09-03] MEDS: LIPASE/PROTEASE/AMYLASE 36,000 UNIT CAPSULE PO SCH ×2 (08:09→11:58)
[2017-09-03 08:26] VITALS: BP 115/61; PULSE 64
--- NOTE | 2017-09-03 09:00 | PN ---
Progress Note, Physician Chief Complaint: Feels better History of Present Illness: On HD - Current Medication List Current Medications: Active Medications Acetaminophen (Tylenol -) 325 mg PO Q8H PRN PRN Reason: PAIN Last Admin: 09/01/17 16:48 Dose: 325 mg Acetaminophen (Tylenol -) 650 mg PO Q4H PRN PRN Reason: FEVER OR PAIN Albuterol Sulfate (Ventolin Hfa Inhaler -) 1 puff IH Q6H PRN PRN Reason: SHORT OF BREATH/WHEEZING Apixaban (Eliquis -) 5 mg PO BID [facility] Last Admin: 09/02/17 21:30 Dose: 5 mg Atorvastatin Calcium (Lipitor -) 20 mg PO HS [facility] Last Admin: 09/02/17 21:30 Dose: 20 mg Benzocaine/Menthol (Cepacol Lozenge -) 1 each MM PRN PRN PRN Reason: SORE THROAT Last Admin: 09/02/17 10:49 Dose: 1 each Budesonide/Formoterol Fumarate (Symbicort 160/4.5mcg -) 1 puff IH DAILY [facility] Last Admin: 09/02/17 10:58 Dose: 1 puff Calcium Carbonate (Calcium Carb Oral Suspension -) 500 mg PO DAILY [facility] Last Admin: 09/02/17 10:46 Dose: 500 mg Carvedilol (Coreg -) 12.5 mg PO BID [facility] Last Admin: 09/02/17 21:30 Dose: 12.5 mg Doxycycline Hyclate (Vibramycin -) 100 mg PO BID@0800,1600 [facility] Last Admin: 09/03/17 08:09 Dose: 100 mg Epoetin Anshu (Epogen -) 4,000 units IVPUSH ONCE ONE Stop: 09/03/17 13:56 Fluticasone Propionate (Flonase -) 1 spray NS BID [facility] Last Admin: 09/02/17 21:31 Dose: 1 spray Iron Sucrose 100 mg/ Sodium (Chloride) 100 mls @ 200 mls/hr IVPB ONCE ONE Stop: 09/03/17 14:24 Montelukast Sodium (Singulair -) 10 mg PO HS [facility] Last Admin: 09/02/17 21:30 Dose: 10 mg Ondansetron HCl (Zofran Injection) 4 mg IVPUSH Q4H PRN PRN Reason: NAUSEA AND/OR VOMITING Oxycodone HCl (Roxicodone -) 5 mg PO Q8H PRN PRN Reason: PAIN Last Admin: 09/01/17 16:48 Dose: 5 mg Pancrelipase (Creon Dr 36,000 Units Capsule) 1 cap PO TIDCM [facility] Last Admin: 09/03/17 08:09 Dose: 1 cap Pantoprazole Sodium (Protonix -) 40 mg PO DAILY [facility] Last Admin: 09/02/17 10:45 Dose: 40 mg Polyethylene Glycol (Miralax (For Daily Use) -) 17 gm PO DAILY [facility] Last Admin: 09/02/17 10:55 Dose: 17 grams Saliva Substitute (Mouthkote Solution -) 1 applic MM DAILY [facility] Last Admin: 09/02/17 10:46 Dose: 1 applic Tamsulosin HCl (Flomax -) 0.4 mg PO HS [facility] Last Admin: 09/02/17 21:30 Dose: 0.4 mg Tiotropium [place] (Spiriva -) 1 puff IH DAILY [facility] Last Admin: 09/02/17 10:47 Dose: 1 puff Trazodone HCl (Desyrel -) 100 mg PO HS [facility] Last Admin: 09/02/17 21:30 Dose: 100 mg Valsartan (Diovan -) 40 mg PO DAILY [facility] Last Admin: 09/02/17 10:46 Dose: Not Given Zolpidem Tartrate (Ambien -) 5 mg PO HS PRN PRN Reason: INSOMNIA Last Admin: 09/02/17 21:30 Dose: 5 mg - Objective Vital Signs: Vital Signs Temperature 98.3 F 09/03/17 08:00 Pulse Rate 64 09/03/17 08:00 Respiratory Rate 18 09/03/17 08:00 Blood Pressure 115/61 09/03/17 08:00 O2 Sat by Pulse Oximetry (%) 95 09/03/17 08:40 Constitutional: Yes: No Distress Eyes: Yes: WNL HENT: Yes: WNL Neck: Yes: WNL Cardiovascular: Yes: WNL Respiratory: Yes: WNL Gastrointestinal: Yes: WNL ...Rectal Exam: Yes: WNL Genitourinary: Yes: Oliguria Breast(s): Yes: WNL Musculoskeletal: Yes: WNL Edema: LLE: 1+, RLE: 1+ Neurological: Yes: Alert Labs: CBC, BMP 09/01/17 09:00 09/02/17 07:45 INR, PTT INR 1.32 (0.82-1.09) H 08/12/17 07:45 Assessment/Plan DC home ,dialysis as OP
[2017-09-03] MEDS: POLYETHYLENE GLYCOL 3350 119 GM BTL PO SCH (10:42)
[2017-09-03] MEDS: CARVEDILOL 12.5 MG TABLET (FP) PO SCH (10:42)
[2017-09-03] MEDS: APIXABAN 5 MG TABLET PO SCH (10:42)
[2017-09-03] MEDS: FLUTICASONE PROP 0.05% 16 GM NASAL SPRAY NS SCH (10:43)
[2017-09-03] MEDS: TIOTROPIUM BROMIDE 18 MCG/INH (DEVICE W/ 5 CAPSULES) IH SCH (10:43)
[2017-09-03] MEDS: BUDESONIDE/FORMETEROL FUMARATE 160/4.5 mcg INHALER IH SCH (10:43)
--- NOTE | 2017-09-03 11:37 | PN ---
Progress Note, Physician History of Present Illness: Tolerating diet, continued peripheral edema despite HD via right PC TTHS and diuretics. - Current Medication List Current Medications: Active Medications Acetaminophen (Tylenol -) 325 mg PO Q8H PRN PRN Reason: PAIN Last Admin: 09/01/17 16:48 Dose: 325 mg Acetaminophen (Tylenol -) 650 mg PO Q4H PRN PRN Reason: FEVER OR PAIN Albuterol Sulfate (Ventolin Hfa Inhaler -) 1 puff IH Q6H PRN PRN Reason: SHORT OF BREATH/WHEEZING Apixaban (Eliquis -) 5 mg PO BID [facility] Last Admin: 09/03/17 10:42 Dose: Not Given Atorvastatin Calcium (Lipitor -) 20 mg PO HS [facility] Last Admin: 09/02/17 21:30 Dose: 20 mg Benzocaine/Menthol (Cepacol Lozenge -) 1 each MM PRN PRN PRN Reason: SORE THROAT Last Admin: 09/02/17 10:49 Dose: 1 each Budesonide/Formoterol Fumarate (Symbicort 160/4.5mcg -) 1 puff IH DAILY [facility] Last Admin: 09/03/17 10:43 Dose: 1 puff Calcium Carbonate (Calcium Carb Oral Suspension -) 500 mg PO DAILY [facility] Last Admin: 09/02/17 10:46 Dose: 500 mg Carvedilol (Coreg -) 12.5 mg PO BID [facility] Last Admin: 09/03/17 10:42 Dose: 12.5 mg Doxycycline Hyclate (Vibramycin -) 100 mg PO BID@0800,1600 [facility] Last Admin: 09/03/17 08:09 Dose: 100 mg Epoetin Anshu (Epogen -) 4,000 units IVPUSH ONCE ONE Stop: 09/03/17 13:56 Fluticasone Propionate (Flonase -) 1 spray NS BID [facility] Last Admin: 09/03/17 10:43 Dose: 1 spray Iron Sucrose 100 mg/ Sodium (Chloride) 100 mls @ 200 mls/hr IVPB ONCE ONE Stop: 09/03/17 14:24 Montelukast Sodium (Singulair -) 10 mg PO HS [facility] Last Admin: 09/02/17 21:30 Dose: 10 mg Ondansetron HCl (Zofran Injection) 4 mg IVPUSH Q4H PRN PRN Reason: NAUSEA AND/OR VOMITING Oxycodone HCl (Roxicodone -) 5 mg PO Q8H PRN PRN Reason: PAIN Last Admin: 09/01/17 16:48 Dose: 5 mg Pancrelipase (Creon Dr 36,000 Units Capsule) 1 cap PO TIDCM [facility] Last Admin: 09/03/17 08:09 Dose: 1 cap Pantoprazole Sodium (Protonix -) 40 mg PO DAILY [facility] Last Admin: 09/02/17 10:45 Dose: 40 mg Polyethylene Glycol (Miralax (For Daily Use) -) 17 gm PO DAILY [facility] Last Admin: 09/03/17 10:42 Dose: 17 grams Saliva Substitute (Mouthkote Solution -) 1 applic MM DAILY [facility] Last Admin: 09/02/17 10:46 Dose: 1 applic Tamsulosin HCl (Flomax -) 0.4 mg PO HS [facility] Last Admin: 09/02/17 21:30 Dose: 0.4 mg Tiotropium [place] (Spiriva -) 1 puff IH DAILY [facility] Last Admin: 09/03/17 10:43 Dose: 1 puff Trazodone HCl (Desyrel -) 100 mg PO HS [facility] Last Admin: 09/02/17 21:30 Dose: 100 mg Valsartan (Diovan -) 40 mg PO DAILY [facility] Last Admin: 09/02/17 10:46 Dose: Not Given Zolpidem Tartrate (Ambien -) 5 mg PO HS PRN PRN Reason: INSOMNIA Last Admin: 09/02/17 21:30 Dose: 5 mg - Objective Vital Signs: Vital Signs Temperature 98.3 F 09/03/17 08:00 Pulse Rate 64 09/03/17 08:00 Respiratory Rate 18 09/03/17 08:00 Blood Pressure 115/61 09/03/17 08:00 O2 Sat by Pulse Oximetry (%) 95 09/03/17 08:40 Constitutional: Yes: No Distress, Calm Neck: Yes: Supple Cardiovascular: Yes: Pulse Irregular Respiratory: Yes: Regular, Diminished Gastrointestinal: Yes: Normal Bowel Sounds, Soft, Abdomen, Obese Edema: Yes Edema: LLE: 2+, RLE: 2+ Labs: CBC, BMP 09/01/17 09:00 09/02/17 07:45 INR, PTT INR 1.32 (0.82-1.09) H 08/12/17 07:45 Problem List - Problems (1) Anemia Code(s): D64.9 - ANEMIA, UNSPECIFIED Qualifiers: Anemia type: due to chronic kidney disease (2) CVD (cerebrovascular disease) Code(s): I67.9 - CEREBROVASCULAR DISEASE, UNSPECIFIED (3) Hx of CABG Code(s): Z95.1 - PRESENCE OF AORTOCORONARY BYPASS GRAFT (4) Hypercholesterolemia Code(s): E78.00 - PURE HYPERCHOLESTEROLEMIA, UNSPECIFIED (5) Presence of permanent cardiac pacemaker Code(s): Z95.0 - PRESENCE OF CARDIAC PACEMAKER (6) Sick sinus syndrome Code(s): I49.5 - SICK SINUS SYNDROME (7) CHF Congestive heart failure Code(s): I50.9 - HEART FAILURE, UNSPECIFIED (8) Abdominal aortic aneurysm (AAA) Code(s): I71.4 - ABDOMINAL AORTIC ANEURYSM, WITHOUT RUPTURE Qualifiers: Presence of rupture: without rupture Qualified Code(s): I71.4 - Abdominal aortic aneurysm, without rupture (9) Ischemic colitis Code(s): K55.9 - VASCULAR DISORDER OF INTESTINE, UNSPECIFIED (10) Rectal bleeding Code(s): K62.5 - HEMORRHAGE OF ANUS AND RECTUM (11) [id number]-[id number] kidney injury Code(s): N17.9 - ACUTE KIDNEY FAILURE, UNSPECIFIED; N18.9 - CHRONIC KIDNEY DISEASE, UNSPECIFIED Qualifiers: Acute renal failure type: unspecified Chronic kidney disease stage: on chronic dialysis Qualified Code(s): N17.9 - Acute kidney failure, unspecified ; N18.9 - Chronic kidney disease, unspecified; N18.9 - Chronic kidney disease, unspecified; Z99.2 - Dependence on renal dialysis; Z99.2 - Dependence on renal dialysis; Z99.2 - Dependence on renal dialysis; Z99.2 - Dependence on renal dialysis Assessment/Plan 1. Rectal bleed, underlying diverticulitis with partial SBO with dilated small bowel loops - resolved 2. CAD s/p CABG, angina pectoris 3. Persistent AF with underlying PPM for sick sinus syndrome 4. ESRD on HD 5. Hypercholesterolemia 6. CVA/TIA 7. COPD 8. TAA and AAA 9. Anemia of CKD PLAN: 1. Hemodialysis TTHS via right PC and diuresis per renal 2. Plan for AVF 3. Continue Carvedilol 12.5 bid 4. Continue Atorvastatin 20 qhs 5. Monitor CBC and transfuse PRBC as needed 6. TAA and AAA likely also needs surveillance probably not ready for intervention 7. Continue Diovan 40 qd with uptitration as tolerated 8. Compression therapy with GABE wraps, encourage ambulation 9. Given no further LGIB over last several weeks, have resumed Eliquis 5 bid (Cr >1.5, age<80, wt>60 Kg) he acknowledges lack of data with use in ESRD, but declines coumadin per INR after discussion. 10. Abx course per ID
[2017-09-03] MEDS ORDERED: EPOETIN ALFA 2,000 UNITS/1 ML VIAL IVPUSH ONE (13:55)
[2017-09-03] MEDS ORDERED: IRON SUCROSE INJECTION 100 MG in SODIUM CHLORIDE 95 ML IVPB ONE (13:55)
--- NOTE | 2017-09-03 15:05 | PN ---
Progress Note, Physician History of Present Illness: Pt seen and examined at bedside. He is awake and alert. He denies shortness of breath. - Objective Vital Signs: Vital Signs Temperature 98.3 F 09/03/17 08:00 Pulse Rate 64 09/03/17 08:00 Respiratory Rate 18 09/03/17 08:00 Blood Pressure 115/61 09/03/17 08:00 O2 Sat by Pulse Oximetry (%) 95 09/03/17 08:40 Constitutional: Yes: Calm Eyes: Yes: Conjunctiva Clear HENT: Yes: Atraumatic Neck: Yes: Supple Cardiovascular: Yes: S1, S2 Respiratory: Yes: CTA Bilaterally Gastrointestinal: Yes: Soft Genitourinary: Yes: WNL Musculoskeletal: Yes: WNL Edema: Yes Edema: LLE: 1+, RLE: 1+ Neurological: Yes: Oriented Psychiatric: Yes: Oriented Labs: CBC, BMP 09/01/17 09:00 09/02/17 07:45 INR, PTT INR 1.32 (0.82-1.09) H 08/12/17 07:45 Problem List - Problems (1) CKD (chronic kidney disease) Code(s): N18.9 - CHRONIC KIDNEY DISEASE, UNSPECIFIED Qualifiers: Chronic kidney disease stage: stage 4 (severe) Qualified Code(s): N18.4 - Chronic kidney disease, stage 4 (severe) (2) Anemia Code(s): D64.9 - ANEMIA, UNSPECIFIED Qualifiers: Anemia type: due to chronic kidney disease (3) Abdominal pain Code(s): R10.9 - UNSPECIFIED ABDOMINAL PAIN Qualifiers: Abdominal location: unspecified location Qualified Code(s): R10.9 - Unspecified abdominal pain (4) Rectal bleeding Code(s): K62.5 - HEMORRHAGE OF ANUS AND RECTUM (5) Acute exacerbation of COPD with asthma Code(s): J44.1 - CHRONIC OBSTRUCTIVE PULMONARY DISEASE W (ACUTE) EXACERBATION; J45.901 - UNSPECIFIED ASTHMA WITH (ACUTE) EXACERBATION (6) CHF (congestive heart failure) Code(s): I50.9 - HEART FAILURE, UNSPECIFIED Qualifiers: Congestive heart failure type: combined Congestive heart failure chronicity : acute on chronic Qualified Code(s): I50.43 - Acute on chronic combined systolic (congestive) and diastolic (congestive) heart failure Assessment/Plan Impression 1. ESRD 2. ALAN 3. anemia 4. GI bleed 5. BPH 6. a-fib 7. aortic aneurysm 8. COPD 9. insomnia 10. SBO Plan - pt is going home today - he will get HD as outpt - cont lasix on non HD days - cont venofer - cont epogen - pt will still need a fistula - cont mattie Ortega
== END 2017-09-03 14:22 | disposition home or self-care (01) | DRG 377 ==
LOC: JER 11:54 → INTOOBSV 13:46 → JERBED 13:46 → J5S 17:54 → J6S 08-12 02:04 → OBSVTOIN 08-12 19:00 → J6S 08-18 18:02
PROVIDERS: ADMIT Internal Medicine; ATTEND Internal Medicine
PROC: 30233H1 Transfusion of Nonautologous Whole Blood into Peripheral Vein, Percutaneous Approach (ICD-10-PCS; 2017-08-11)
PROC: B516ZZA Fluoroscopy of Right Subclavian Vein, Guidance (ICD-10-PCS; 2017-08-25)
PROC: 05H533Z Insertion of Infusion Device into Right Subclavian Vein, Percutaneous Approach (ICD-10-PCS; principal; 2017-08-25 16:30)
PROC: 5A1D70Z Performance of Urinary Filtration, Intermittent, Less than 6 Hours Per Day (ICD-10-PCS; 2017-08-26)
DX: K57.33 Diverticulitis of large intestine without perforation or abscess with bleeding (principal); I50.43 Acute on chronic combined systolic (congestive) and diastolic (congestive) heart failure; N18.6 End stage renal disease; N17.9 Acute kidney failure, unspecified; I13.2 Hypertensive heart and chronic kidney disease with heart failure and with stage 5 chronic kidney disease, or end stage renal disease; J44.1 Chronic obstructive pulmonary disease with (acute) exacerbation; K55.9 Vascular disorder of intestine, unspecified; K56.609 Unspecified intestinal obstruction, unspecified as to partial versus complete obstruction; I48.1 Persistent atrial fibrillation; K56.0 Paralytic ileus; K62.5 Hemorrhage of anus and rectum; I25.10 Atherosclerotic heart disease of native coronary artery without angina pectoris; Z95.1 Presence of aortocoronary bypass graft; Z95.4 Presence of other heart-valve replacement; Z79.01 Long term (current) use of anticoagulants; Z95.0 Presence of cardiac pacemaker; G47.00 Insomnia, unspecified; E78.5 Hyperlipidemia, unspecified; Z86.73 Personal history of transient ischemic attack (TIA), and cerebral infarction without residual deficits; I71.4 Abdominal aortic aneurysm, without rupture; D72.829 Elevated white blood cell count, unspecified; N40.0 Benign prostatic hyperplasia without lower urinary tract symptoms; D69.6 Thrombocytopenia, unspecified; F41.9 Anxiety disorder, unspecified; E87.79 Other fluid overload; D63.1 Anemia in chronic kidney disease
CPT/HCPCS: 36415; 36430; 36511; 71010-TC; 74020-TC; 74176-TC; 76000-TC; 76775-TC; 80048; 80053; 81003; 81015; 82272; 82436; 82570; 82728; 82784; 83540; 83550; 83605; 83615; 83690; 83735; 83880; 84100; 84133; 84134; 84155; 84165; 84300; 85025; 85027; 85044; 85610; 85730; 86334; 86704; 86706; 86708; 86803; 86850; 86900; 86901; 86922; 87070; 87186; 87205; 87340; 93005; 93010; 94640; 94760; 97116-GP; 97161-GP; 99284-25; G0378; J0885; J1644; J1756; P9038; P9058

== ENCOUNTER 2017-10-28 08:18 | Day surgery (SDC) | payer MEDICARE, OTHER ==
[2017-10-27 14:51] VITALS: BMI 26.3
[2017-10-28 08:48] VITALS: TEMP 97.5
--- NOTE | 2017-10-28 08:54 | HP ---
Admitting History and Physical - Admission Chief Complaint: malfuctioning permacath. Here for PC exchange. Limitations to Obtaining History: No Limitations - Past Medical History Cardiovascular: Yes: AFIB, CAD, CHF Pulmonary: Yes: COPD Gastrointestinal: Yes: Constipation, GI Bleed Renal/: Yes: Renal Failure, Renal Inusuff Heme/Onc: Yes: Anemia - Past Surgical History Past Surgical History: Yes: CABG, Permanent Pacemaker - Advance Directives Advance Directives: Yes: Health Care Proxy - Smoking History Smoking history: Former smoker Have you smoked in the past 12 months: No If you are a former smoker, when did you quit?: 1989 - Alcohol/Substance Use Hx Alcohol Use: No History of Substance Use: reports: None - Social History History of Recent Travel: No Home Medications - Allergies Allergies/Adverse Reactions: Allergies Allergy/AdvReac Type Severity Reaction Status Date / Time No Known Allergies Allergy Verified 08/10/17 12:02 - Home Medications Home Medications: Ambulatory Orders Albuterol 0.083% Nebulizer Kristyn [Ventolin 0.083%] 1 neb NEB QID PRN 04/02/16 Apixaban [Eliquis] 5 mg PO BID 04/02/16 Aspirin [ASA -] 81 mg PO DAILY 04/02/16 Atorvastatin Calcium 20 mg PO HS 04/02/16 Azelastine HCl [Astepro] 1 - 2 spr NS BID 04/02/16 Budesonide/Formeterol Fumarate [SYMBICORT 160/4.5mcg -] 1 inh PO DAILY 04/02/16 Cholecalciferol (Vitamin D3) [Vitamin D3 -] 3,000 unit PO DAILY 04/02/16 Ethambutol HCl [Myambutol -] 400 mg PO DAILY 04/02/16 Furosemide [Lasix -] 20 mg PO DAILY 04/02/16 Levalbuterol Tartrate [Xopenex Hfa] 15 gm IH DAILY PRN 04/02/16 Montelukast Na [Singulair -] 10 mg PO HS 04/02/16 Omeprazole [Prilosec] 40 mg PO BID 04/02/16 Tamsulosin HCl [Flomax] 0.4 mg PO HS 04/02/16 Tiotropium [place] [Spiriva] 1 inh PO DAILY 04/02/16 Zolpidem Tartrate [Ambien] 10 mg PO HS 04/02/16 traZODone HCL [Desyrel -] 100 mg PO HS 04/02/16 Carvedilol 12.5 mg PO DAILY 08/10/17 Triamcinolone Acetonide [Nasacort] 1 inh BID 08/10/17 Valsartan 320 mg PO DAILY 08/10/17 Doxycycline Hyclate 100 mg PO BID 15 Days tablet 09/01/17 Review of Systems - Review of Systems Constitutional: reports: No Symptoms Eyes: reports: No Symptoms HENT: reports: No Symptoms Neck: reports: No Symptoms Cardiovascular: reports: No Symptoms Respiratory: reports: No Symptoms Gastrointestinal: reports: No Symptoms Genitourinary: reports: No Symptoms Breasts: reports: No Symptoms Reported Musculoskeletal: reports: No Symptoms Integumentary: reports: No Symptoms Neurological: reports: No Symptoms Endocrine: reports: No Symptoms Hematology/Lymphatic: reports: No Symptoms Psychiatric: reports: No Symptoms Physical Examination Vital Signs: Vital Signs Temperature 97.5 F L 10/28/17 08:48 Pulse Rate 79 10/28/17 08:48 Respiratory Rate 20 10/28/17 08:48 Blood Pressure 115/71 10/28/17 08:48 O2 Sat by Pulse Oximetry (%) 95 10/28/17 08:51 Constitutional: Yes: Well Nourished, No Distress, Calm Eyes: Yes: WNL, Conjunctiva Clear, EOM Intact HENT: Yes: WNL, Atraumatic, Normocephalic Neck: Yes: WNL, Supple, Trachea Midline Cardiovascular: Yes: WNL, Regular Rate and Rhythm Respiratory: Yes: WNL, Regular, CTA Bilaterally Gastrointestinal: Yes: WNL, Normal Bowel Sounds Musculoskeletal: Yes: WNL Extremities: Yes: WNL Edema: No Integumentary: Yes: WNL Neurological: Yes: WNL, Alert, Oriented ...Motor Strength: WNL Psychiatric: Yes: WNL Problem List - Problems (1) Hemodialysis catheter malfunction Code(s): T82.41XA - BREAKDOWN (MECHANICAL) OF VASCULAR DIALYSIS CATHETER, INIT (2) Chronic kidney disease with end stage renal failure on dialysis Code(s): N18.6 - END STAGE RENAL DISEASE; Z99.2 - DEPENDENCE ON RENAL DIALYSIS Assessment/Plan Malfunctioning permacath 1. For cath exchange today.
[2017-10-28] MEDS ORDERED: ceFAZolin SODIUM 1 GM VIAL IVPB ONE (11:50)
[2017-10-28] MEDS ORDERED: MIDAZOLAM HCL 2 MG/2 ML SINGLE DOSE VIAL ONE (11:50)
[2017-10-28] MEDS ORDERED: ceFAZolin SODIUM 1 GM VIAL ONE (11:50)
[2017-10-28] MEDS ORDERED: LIDOCAINE HCL 1%, 10 MG/ML (20ML VIAL) INF ONE (12:00)
--- NOTE | 2017-10-28 12:19 | OP ---
Operative Note - Note: Operative Date: 10/28/17 Pre-Operative Diagnosis: malfunctioning permacath Operation: permacath exchange Post-Operative Diagnosis: Same as Pre-op Surgeon: Lasha Crandall Anesthesia: Fractional Estimated Blood Loss (mls): 30 Operative Report Dictated: Yes
[2017-10-28 13:57] VITALS: PULSE 78
[2017-10-28 14:02] VITALS: BP 120/70
--- NOTE | 2017-10-30 16:10 | PATH ---
Surgical Pathology Report Patient Name: ZBIGNIEW GANDARA [facility]. Rec. #: [id number] /Age/Gender: 1945 (Age: 72) / M Account: [id number] Location: [facility] Taken: 10/28/2017 Received: 10/28/2017 Reported: 10/30/2017 Physicians: Lasha Crandall Specimen(s) Received PERMA CATHETER Clinical History Permacath catheter malfunction Final Diagnosis OLD PERMACATH, RIGHT UPPER CHEST, REMOVAL: CATHETER, CONSISTENT WITH PERMACATH. MACROSCOPIC DIAGNOSIS. Electronically Signed Jeanne Vargas M.D. Gross Description Received fresh labeled "old permacath right upper chest," is a 39 cm in length double lumen catheter. No soft tissue is present. No sections are submitted, gross only. 10/28/2017 saudi10/28/2017
== END 2017-10-28 13:30 | disposition home or self-care (01) ==
LOC: JASU-SURG 08:18
PROVIDERS: ATTEND Surgery Vascular Surgery
PROC: 0J2TXYZ Change Other Device in Trunk Subcutaneous Tissue and Fascia, External Approach (ICD-10-PCS; principal; 2017-10-28 09:30)
DX: T82.41XA Breakdown (mechanical) of vascular dialysis catheter, initial encounter (principal); I12.0 Hypertensive chronic kidney disease with stage 5 chronic kidney disease or end stage renal disease; N18.6 End stage renal disease; Z99.2 Dependence on renal dialysis; Z87.891 Personal history of nicotine dependence
CPT/HCPCS: 36582; C1881; 36415; 71045-TC-FY; 76000-TC-FY; 84132; 88300-TC; J1644

== ENCOUNTER → 2017-11-13 | Day surgery (SDC) | payer MEDICARE, OTHER ==
[2017-11-09 17:14] VITALS: BMI 26.6
[~2017-11-13] MED LIST: HEPARIN NA (PORCINE) 5,000 UNITS/ML 1ML VIAL ONE; LIDOCAINE HCL 1%, 10 MG/ML (20ML VIAL) ONE; LIDOCAINE HCL 1%, 10 MG/ML (50 mL VIAL) IJ ONE; MIDAZOLAM HCL 2 MG/2 ML SINGLE DOSE VIAL ONE; PROPOFOL 20 ML ONE; ceFAZolin SODIUM 1 GM VIAL IVPB ONE; ceFAZolin SODIUM 1 GM VIAL ONE
--- NOTE | 2017-11-13 09:19 | HP ---
Admitting History and Physical - Admission Chief Complaint: Pt with ESRD . Needs permanent access for HD. Here for AVF creation right arm today. 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: Alzheimer's, CVA, Dementia, Migraine, Multiple Sclerosis, Peripheral Neuropathy, Parkinson's, Seizure, Syncope, TIA, Vertigo, Other Cardiovascular: Yes: AFIB, CAD, CHF Pulmonary: Yes: COPD Gastrointestinal: Yes: Constipation, GI Bleed Renal/: Yes: Renal Failure, Renal Inusuff Heme/Onc: Yes: Anemia - Past Surgical History Past Surgical History: Yes: CABG, Permanent Pacemaker - Advance Directives Advance Directives: Yes: Health Care Proxy - Smoking History Smoking history: Former smoker Have you smoked in the past 12 months: No If you are a former smoker, when did you quit?: 1989 - Alcohol/Substance Use Hx Alcohol Use: No History of Substance Use: reports: None - Social History History of Recent Travel: No Home Medications - Allergies Allergies/Adverse Reactions: Allergies Allergy/AdvReac Type Severity Reaction Status Date / Time No Known Allergies Allergy Verified 11/09/17 17:49 - Home Medications Home Medications: Ambulatory Orders Albuterol 0.083% Nebulizer Kristyn [Ventolin 0.083%] 1 neb NEB QID PRN 04/02/16 Apixaban [Eliquis] 5 mg PO BID 04/02/16 Aspirin [ASA -] 81 mg PO DAILY 04/02/16 Atorvastatin Calcium 20 mg PO HS 04/02/16 Azelastine HCl [Astepro] 1 - 2 spr NS BID 04/02/16 Budesonide/Formeterol Fumarate [SYMBICORT 160/4.5mcg -] 1 inh PO DAILY 04/02/16 Cholecalciferol (Vitamin D3) [Vitamin D3 -] 3,000 unit PO DAILY 04/02/16 Furosemide [Lasix -] 20 mg PO DAILY 04/02/16 Levalbuterol Tartrate [Xopenex Hfa] 15 gm IH DAILY PRN 04/02/16 Montelukast Na [Singulair -] 10 mg PO HS 04/02/16 Omeprazole [Prilosec] 40 mg PO BID 04/02/16 Tamsulosin HCl [Flomax] 0.4 mg PO HS 04/02/16 Tiotropium [place] [Spiriva] 1 inh PO DAILY 04/02/16 Zolpidem Tartrate [Ambien] 10 mg PO HS 04/02/16 traZODone HCL [Desyrel -] 100 mg PO HS 04/02/16 Carvedilol 12.5 mg PO DAILY 08/10/17 Triamcinolone Acetonide [Nasacort] 1 inh BID 08/10/17 Valsartan 320 mg PO DAILY 08/10/17 Cetirizine HCl 10 mg PO HS 10/28/17 Diltiazem HCl [Cartia Xt] 120 mg PO DAILY 10/28/17 Lorazepam 1 mg PO PRN 10/28/17 Review of Systems - Review of Systems Constitutional: reports: No Symptoms Eyes: reports: No Symptoms HENT: reports: No Symptoms Neck: reports: No Symptoms Cardiovascular: reports: No Symptoms Respiratory: reports: No Symptoms Gastrointestinal: reports: No Symptoms Genitourinary: reports: No Symptoms Musculoskeletal: reports: No Symptoms Integumentary: reports: No Symptoms Neurological: reports: No Symptoms Endocrine: reports: No Symptoms Hematology/Lymphatic: reports: No Symptoms Psychiatric: reports: No Symptoms Physical Examination Constitutional: Yes: Well Nourished, No Distress, Calm Eyes: Yes: WNL, Conjunctiva Clear, EOM Intact HENT: Yes: WNL, Atraumatic, Normocephalic Neck: Yes: WNL, Supple, Trachea Midline Cardiovascular: Yes: WNL, Regular Rate and Rhythm Respiratory: Yes: WNL, Regular, CTA Bilaterally Gastrointestinal: Yes: WNL, Normal Bowel Sounds Musculoskeletal: Yes: WNL Extremities: Yes: WNL Edema: No Integumentary: Yes: WNL Neurological: Yes: WNL, Alert, Oriented ...Motor Strength: WNL Psychiatric: Yes: WNL Problem List - Problems (1) ESRD (end stage renal disease) Code(s): N18.6 - END STAGE RENAL DISEASE Assessment/Plan ESRD 1. For right avf creation today.
--- NOTE | 2017-11-13 18:17 | OP ---
Operative Note - Note: Operative Date: 11/13/17 Pre-Operative Diagnosis: ESRD Operation: creation of right cephalic vein fistula Post-Operative Diagnosis: Same as Pre-op Surgeon: Lasha Crandall Anesthesia: Fractional Estimated Blood Loss (mls): 75 Operative Report Dictated: Yes
[2017-11-13 18:58] VITALS: PULSE 60; TEMP 98
[2017-11-13 21:14] VITALS: BP 136/63
--- NOTE | 2017-11-14 14:37 | OP ---
DATE OF OPERATION: 11/13/2017 PREOPERATIVE DIAGNOSIS: End-stage renal disease. POSTOPERATIVE DIAGNOSIS: End-stage renal disease. PROCEDURE: Creation of right brachial artery to cephalic vein fistula. SURGEON: Lasha Farmer DO ANESTHESIA: Supraclavicular nerve block with fractional anesthesia was administered. BLOOD LOSS: 75 mL. The patient is a 72-year-old male that needs permanent dialysis access. Preoperative vein mapping showed he has a good cephalic vein. Patient came into ambulatory surgery. In OR holding Anesthesia performed a supraclavicular nerve block on the patient. Once the nerve block was completed, we brought the patient into the operating room. Patient was laid on the operating table in the supine manner. The area of the right arm was prepped and draped in a sterile surgical manner. Under ultrasound guidance, we were able to visualize our cephalic vein and our brachial artery and those were marked below the antecubital fossa and a transverse incision was then drawn for about 5 cm using a skin marker. We then went ahead and injected 10 mL of lidocaine 1% in the area. We then took a 15 blade and made a 5-cm incision. Bovie electrocautery was used to control hemostasis and we were able to get down through all the subcutaneous tissue. Once we got down through the subcutaneous tissue, we were able to use Metzenbaum scissors and we were able to dissect out our cephalic vein. Cephalic vein was dissected anterior and posteriorly. All branches of the cephalic vein were then ligated. We then were able to dissect out the basilic vein that was continuing into our antecubital vein there and the basilic vein was ligated as well. We then went medially and went through the fascia and got down to the brachial artery. Brachial artery was dissected anterior and posteriorly and vessel loops were placed around it. We then went ahead and ligated our vein distally and we then placed a 4-Nepali feeding tube into the vein and the feeding tube went all the way up into the shoulder area of the vein where there was good draw-back. Once we brought the feeding tube back, we were able to dilate up the vein appropriately. At this point, 5000 units of IV heparin were administered to the patient. Using micro Sifuentes scissors, we were able to perform a 7-mm venotomy on our vein. After 3 minutes of being on heparin, we got distal and proximal control on the vein. We then used a 15 blade and made an arteriotomy, extended to 7 mm with Sifuentes scissors. Prolene 6-0 stay sutures were then placed. We then used 6-0 Prolene double-armed and went outside-in on the vein and inside-out on the artery and ran the suture around to perform anastomosis between the artery and the vein. Once completed, we opened the distal artery first, then the proximal artery and there was a good thrill in our AV fistula. There was no bleeding. The wound was well irrigated. We went ahead and placed Surgicel and we went ahead and used 3-0 Vicryl and the subcutaneous tissue was approximated in an interrupted manner and the skin was closed with skin rehan. The area was wet and dried; 4 x 4 Tegaderms were placed. Patient tolerated the procedure with no complications. Patient transferred to PACU in stable condition. Patient has a good thrill and bruit in his AV fistula. Patient can be started on Eliquis tomorrow for his atrial fibrillation and patient will follow up in 1 week in the office for staple removal. Total blood loss 75 mL. LASHA FARMER DO [id number]
--- NOTE | 2017-11-16 09:11 | PN ---
Past Medical History Chief Complaint: S/P right avf. Here for some pain and swelling. On exam -- all motor and sensory is intact. The avf has a good bruit and thrill. Pt has defibrillator on left chest. Pt has pc on right chest. the swelling is expected because the pc causing a outflow obstruction. Limitations to Obtaining History: Yes: No Limitations - Past Medical History Vital Signs: Last Vital Signs Temp Pulse Resp BP Pulse Ox 98.0 F 60 16 136/63 97 11/13/17 18:50 11/13/17 18:50 11/13/17 18:50 11/13/17 18:50 11/13/17 18:35 PMH,PSH,Fam Hx, Meds,Allergies,Previous Tx: Reviewed in Nursing Documentation and no changes since last visit. Review of Systems Constitutional: reports: No Symptoms Eyes: reports: No Symptoms Cardiovascular: reports: No Symptoms Respiratory: reports: No Symptoms Musculoskeletal: reports: No Symptoms Integumentary: reports: No Symptoms Neurological: reports: No Symptoms Endocrine: reports: No Symptoms Hematology/Lymphatic: reports: No Symptoms Psychiatric: reports: No Symptoms Nutrition: Good appetite, Weight stable - Appearance General Appearance: Well groomed, Well nourished, No acute distress Assistive Devices: None - Vascular Lower extremity Pulses: 2+ Right Dorsalis Pedis, 2+ Right Posterior Tibial, 2+ Right Popliteal, 2+ Right Femoral, 2+ Left Doralis Pedis, 2+ Left Posterior Tibial, 2+ Left Popliteal, 2+ Left Femoral Skin Temperature: WNL - Labs/Radiology Labs/Radiology: Right arm is warm , and pink. Oxycodone, and keflex prescribed. Return to clinic thursday. Problem List - Problems (1) ESRD (end stage renal disease) Code(s): N18.6 - END STAGE RENAL DISEASE
== END | disposition home or self-care (01) ==
LOC: JASU-SURG 13:57
PROVIDERS: ATTEND Surgery Vascular Surgery
PROC: 03170ZD Bypass Right Brachial Artery to Upper Arm Vein, Open Approach (ICD-10-PCS; principal; 2017-11-13 15:00)
DX: N18.6 End stage renal disease (principal); I48.91 Unspecified atrial fibrillation; J44.9 Chronic obstructive pulmonary disease, unspecified; Z87.891 Personal history of nicotine dependence; I50.9 Heart failure, unspecified
CPT/HCPCS: 36415; 84132; 94760; J1644

== ENCOUNTER 2017-11-14 21:45 | Emergency (ER) | payer MEDICARE, OTHER ==
[2017-11-14 21:52] VITALS: BP 124/69; PULSE 67; TEMP 98.2; BMI 26.6
--- NOTE | 2017-11-14 21:53 | PDOC ---
History of Present Illness - General History Source: Patient, Old Records Exam Limitations: No Limitations - History of Present Illness Initial Comments: 11/14/17 21:58 The patient is a 72 year old male with past medical history of hypertension, CAD , CHF, atrial fibrillation, s/p CABG, s/p pacemaker and ESRD who is s/p permacath exchange yesterday by Dr. Lasha Crandall. The patient states that upon waking up this morning he noticed his surgery dressing was drenched. Since then he has reported fluid leaking from his surgery site as well as swelling and warmth in his right upper extremity. The patient reports going to dialysis today but having dialysis through his temporary port in his chest. The patient denies any recent fevers or chills. <Bren Payan - Last Filed: 11/14/17 22:00> <Trey Garsia - Last Filed: 11/15/17 07:00> - General Chief Complaint: Wound Stated Complaint: RT ARM PORT OOZING Time Seen by Provider: 11/14/17 21:53 Past History <Bren Payan - Last Filed: 11/14/17 22:00> - Past Medical History Anemia: No Asthma: No Cancer: No Cardiac Disorders: Yes (AF, CAD, CABG, AVR) CVA: No COPD: Yes CHF: Yes Dementia: No Diabetes: No GI Disorders: No HTN: Yes Hypercholesterolemia: No Liver Disease: No Seizures: No Thyroid Disease: No - Surgical History Appendectomy: Yes Cardiac Surgery: Yes (triple bipass, VALVE REPLACED) Neurologic Surgery: Yes (FUSION) Orthopedic Surgery: Yes (PARTIAL REPLACEMENT-LEFT) - Immunization History Immunization Up to Date: Yes - Suicide/Smoking/Psychosocial Hx Smoking History: Unknown if ever smoked Have you smoked in the past 12 months: No If you are a former smoker, when did you quit?: 1989 Information on smoking cessation initiated: No Hx Alcohol Use: No Drug/Substance Use Hx: No Substance Use Type: Alcohol Hx Substance Use Treatment: No <Trey Garsia - Last Filed: 11/15/17 07:00> - Past Medical History Allergies/Adverse Reactions: Allergies Allergy/AdvReac Type Severity Reaction Status Date / Time No Known Allergies Allergy Verified 11/09/17 17:49 Home Medications: Ambulatory Orders Albuterol 0.083% Nebulizer Kristyn [Ventolin 0.083%] 1 neb NEB QID PRN 04/02/16 Apixaban [Eliquis] 5 mg PO BID 04/02/16 Aspirin [ASA -] 81 mg PO DAILY 04/02/16 Atorvastatin Calcium 20 mg PO HS 04/02/16 Azelastine HCl [Astepro] 1 - 2 spr NS BID 04/02/16 Budesonide/Formeterol Fumarate [SYMBICORT 160/4.5mcg -] 1 inh PO DAILY 04/02/16 Cholecalciferol (Vitamin D3) [Vitamin D3 -] 3,000 unit PO DAILY 04/02/16 Furosemide [Lasix -] 20 mg PO DAILY 04/02/16 Levalbuterol Tartrate [Xopenex Hfa] 15 gm IH DAILY PRN 04/02/16 Montelukast Na [Singulair -] 10 mg PO HS 04/02/16 Omeprazole [Prilosec] 40 mg PO BID 04/02/16 Tamsulosin HCl [Flomax] 0.4 mg PO HS 04/02/16 Tiotropium [place] [Spiriva] 1 inh PO DAILY 04/02/16 Zolpidem Tartrate [Ambien] 10 mg PO HS 04/02/16 traZODone HCL [Desyrel -] 100 mg PO HS 04/02/16 Carvedilol 12.5 mg PO DAILY 08/10/17 Triamcinolone Acetonide [Nasacort] 1 inh BID 08/10/17 Valsartan 160 mg PO DAILY 08/10/17 Cetirizine HCl 10 mg PO HS 10/28/17 Diltiazem HCl [Cartia Xt] 120 mg PO DAILY 10/28/17 Lorazepam 1 mg PO PRN 10/28/17 Review of Systems - Review of Systems Able to Perform ROS?: Yes Constitutional: No: Symptoms Reported, See HPI, Chills, Diaphoresis, Fever, Loss of Appetite, Malaise, Night Sweats, Weakness, Weight Stable, Unintentional Wgt. Loss, Unexplained wgt Loss, Other HEENTM: No: Symptoms Reported, See HPI, Eye Pain, Blurred Vision, Tearing, Recent change in vision, Double Vision, Cataracts, Ear Pain, Ocular Prothesis, Ear Discharge, Nose Pain, Nose Congestion, Tinnitus, Nose Bleeding, Hearing Loss , Throat Pain, Throat Swelling, Mouth Pain, Dental Problems, Difficulty Swallowing, Mouth Swelling, Other Cardiac (ROS): No: Symptoms Reported, See HPI, Chest Pain, Edema, Irregular Heart Rate, Lightheadedness, Palpitations, Syncope, Chest Tightness, Other ABD/GI: No: Symptoms Reported, See HPI, Abdominal Distended, Abd. Pain w/ defecation, Blood Streaked Bowels, Constipated, Diarrhea, Difficulty Swallowing , Nausea, Poor Appetite, Poor Fluid Intake, Rectal Bleeding, Vomiting, Indigestion, Abdominal cramping, Tarry Stools, Other : No: Symptoms Reported, See HPI, Burning, Dysuria, Discharge, Frequency, Flank Pain, Hematuria, Incontinence, Pain, Urgency, Testicular Mass, Testicular Swelling, Lesions, Testicular Pain, Other Musculoskeletal: No: Symptoms Reported, See HPI, Back Pain, Gout, Joint Pain, Joint Swelling, Muscle Pain, Muscle Weakness, Neck Pain, Joint Stiffness, Other Integumentary: Yes: Erythema (of RUE with swelling and leaking fluid). No: Symptoms Reported, See HPI, Bruising, Change in Color, Change in Hair/Nails, Dryness, Flushing, Lesions, Lumps, Pallor, Pruritus, Rash, Sweating, Other Neurological: No: Symptoms reported, See HPI, Headache, Numbness, Paresthesia, Pre-Existing Deficit, Seizure, Tingling, Tremors, Weakness, Unsteady Gait, Ataxia, Dizziness, Other Psychiatric: No: Anxiety, Depression, Frequent Crying, Stressors, Sleep Pattern Change, Emotional Problems, Mood Swings, Change in Appetite, Other Endocrine: No: Symptoms Reported, See HPI, Excessive Sweating, Flushing, Intolerance to Cold, Intolerance to Heat, Increased Hunger, Increased Thirst, Increased Urine, Unexplained Weight Gain, Unexplained Weight Loss, Change in Weight, Other Hematologic/Lymphatic: No: Symptoms Reported, See HPI, Anemia, Blood Clots, Easy Bleeding, Easy Bruising, Bleeding Diathesis, Lymph Node Abnormalities, Swollen Glands, Other All Other Systems: Reviewed and Negative <Bren Payan - Last Filed: 11/14/17 22:00> *Physical Exam - Vital Signs Last Vital Signs Temp Pulse Resp BP Pulse Ox 98.2 F 67 18 124/69 98 11/14/17 21:50 11/14/17 21:50 11/14/17 21:50 11/14/17 21:50 11/14/17 21:50 - Physical Exam General Appearance: Yes: Nourished, Appropriately Dressed HEENT: positive: EOMI Respiratory/Chest: positive: Lungs Clear, Normal Breath Sounds Cardiovascular: positive: Regular Rhythm, Regular Rate, S1, S2 Gastrointestinal/Abdominal: positive: Normal Bowel Sounds, Flat, Soft. negative : Tender, Organomegaly, Pulsatile Mass, Guarding, Rebound Musculoskeletal: positive: Normal Inspection Extremity: positive: Normal Inspection, Normal Range of Motion, Tender (RUE), Coldness (RUE). negative: Normal Capillary Refill (decreased on RUE) Integumentary: positive: Dry, Warm. negative: Normal Color (RUE erythematous from forearm to wrist) <Bren Payan - Last Filed: 11/14/17 22:00> - Vital Signs Last Vital Signs Temp Pulse Resp BP Pulse Ox 98.2 F 67 18 124/69 98 11/14/17 21:50 11/14/17 21:50 11/14/17 21:50 11/14/17 21:50 11/14/17 21:50 <Trey Garsia - Last Filed: 11/15/17 07:00> Medical Decision Making - Medical Decision Making 11/15/17 06:59 d/w Dr. Crandall. No acute issues. NO acute infection identified. Dressing reapplied. Will fu w Dr. Crandall tomorrow AM <Trey Garsia - Last Filed: 11/15/17 07:00> *DC/Admit/Observation/Transfer - Attestations Scribe Attestion: 11/14/17 22:07 Documentation prepared by Bren Payan, acting as medical receptionist assistant for Trey Garsia MD. <Bren Payan - Last Filed: 11/14/17 22:00> <Trey Garsia - Last Filed: 11/15/17 07:00> Diagnosis at time of Disposition: Post-operative complication Qualifiers: Surgical complication system/body Area: circulatory system Surgical complication type: seroma Procedure type: other circulatory Qualified Code(s): I97.648 - Postprocedural seroma of a circulatory system organ or structure following other circulatory system procedure - Discharge Dispostion Disposition: HOME Condition at time of disposition: Stable - Patient Instructions Additional Instructions: Please follow-up with Dr. Crandall on Thursday morning at 9am
== END 2017-11-14 22:27 | disposition home or self-care (01) ==
LOC: FER 21:45
DX: I97.648 Postprocedural seroma of a circulatory system organ or structure following other circulatory system procedure (principal); I10 Essential (primary) hypertension; I48.91 Unspecified atrial fibrillation; Z95.0 Presence of cardiac pacemaker; I50.9 Heart failure, unspecified
CPT/HCPCS: 99281-25

== ENCOUNTER 2017-12-28 07:22 | Day surgery (SDC) | payer MEDICARE, OTHER ==
[2017-12-25 17:30] VITALS: BMI 26.4
[2017-12-28] MEDS ORDERED: oxyCODONE HCL 5 MG TABLET PO PRN ×2 (08:28)
[2017-12-28] MEDS ORDERED: ceFAZolin SODIUM 1 GM VIAL IVPB ONE (09:41)
[2017-12-28] MEDS ORDERED: ONDANSETRON 4 MG/2 ML VIAL IVPUSH PRN (10:00)
[2017-12-28] MEDS ORDERED: LIDOCAINE HCL 1%, 10 MG/ML (20ML VIAL) INF ONE (10:04)
--- NOTE | 2017-12-28 10:09 | OP ---
Operative Note - Note: Operative Date: 12/28/17 Pre-Operative Diagnosis: Stenosis right avf Operation: venogram, venoplasty right avf Findings: 80% stenosis in body of avf Post-Operative Diagnosis: Same as Pre-op Surgeon: Lasha Crnadall Anesthesia: Fractional Estimated Blood Loss (mls): 10 Operative Report Dictated: Yes
--- NOTE | 2017-12-28 10:11 | HP ---
Admitting History and Physical - Admission Chief Complaint: stenosis of right avf Limitations to Obtaining History: No Limitations - Past Medical History Cardiovascular: Yes: AFIB, CAD, CHF Pulmonary: Yes: COPD Gastrointestinal: Yes: Constipation, GI Bleed Renal/: Yes: Renal Failure, Renal Inusuff Heme/Onc: Yes: Anemia - Past Surgical History Past Surgical History: Yes: CABG, Permanent Pacemaker - Smoking History Smoking history: Unknown if ever smoked Have you smoked in the past 12 months: No If you are a former smoker, when did you quit?: 1989 - Alcohol/Substance Use Hx Alcohol Use: No History of Substance Use: reports: None - Social History History of Recent Travel: No Home Medications - Allergies Allergies/Adverse Reactions: Allergies Allergy/AdvReac Type Severity Reaction Status Date / Time No Known Allergies Allergy Verified 12/25/17 17:30 - Home Medications Home Medications: Ambulatory Orders Albuterol 0.083% Nebulizer Kristyn [Ventolin 0.083%] 1 neb NEB QID PRN 04/02/16 Apixaban [Eliquis] 5 mg PO BID 04/02/16 Aspirin [ASA -] 81 mg PO DAILY 04/02/16 Atorvastatin Calcium 20 mg PO HS 04/02/16 Azelastine HCl [Astepro] 1 - 2 spr NS BID 04/02/16 Budesonide/Formeterol Fumarate [SYMBICORT 160/4.5mcg -] 1 inh PO DAILY 04/02/16 Cholecalciferol (Vitamin D3) [Vitamin D3 -] 3,000 unit PO DAILY 04/02/16 Furosemide [Lasix -] 40 mg PO BID 04/02/16 Levalbuterol Tartrate [Xopenex Hfa] 15 gm IH DAILY PRN 04/02/16 Montelukast Na [Singulair -] 10 mg PO HS 04/02/16 Omeprazole [Prilosec] 40 mg PO BID 04/02/16 Tamsulosin HCl [Flomax] 0.4 mg PO HS 04/02/16 Tiotropium [place] [Spiriva] 1 inh PO DAILY 04/02/16 Zolpidem Tartrate [Ambien] 10 mg PO HS 04/02/16 traZODone HCL [Desyrel -] 100 mg PO HS 04/02/16 Carvedilol 12.5 mg PO DAILY 08/10/17 Triamcinolone Acetonide [Nasacort] 1 inh BID 08/10/17 Valsartan 160 mg PO DAILY 08/10/17 Cetirizine HCl 10 mg PO HS 10/28/17 Diltiazem HCl [Cartia Xt] 120 mg PO DAILY 10/28/17 Lorazepam 1 mg PO PRN 10/28/17 Oxycodone HCl/Acetaminophen [Oxycodone-Acetaminophen 10-325] 1 each PO QID #120 tablet MDD 4 11/16/17 Multivitamins [Tab-A-Vit -] 1 tab PO DAILY 12/28/17 Review of Systems - Review of Systems Constitutional: reports: No Symptoms Eyes: reports: No Symptoms HENT: reports: No Symptoms Neck: reports: No Symptoms Cardiovascular: reports: No Symptoms Respiratory: reports: No Symptoms Gastrointestinal: reports: No Symptoms Genitourinary: reports: No Symptoms Musculoskeletal: reports: No Symptoms Integumentary: reports: No Symptoms Neurological: reports: No Symptoms Endocrine: reports: No Symptoms Hematology/Lymphatic: reports: No Symptoms Psychiatric: reports: No Symptoms Physical Examination Vital Signs: Vital Signs Temperature 97.4 F L 12/28/17 08:35 Pulse Rate 73 12/28/17 08:35 Respiratory Rate 20 12/28/17 08:35 Blood Pressure 122/66 12/28/17 08:35 O2 Sat by Pulse Oximetry (%) 94 L 12/28/17 08:53 Constitutional: Yes: Well Nourished, No Distress, Calm Eyes: Yes: WNL, Conjunctiva Clear, EOM Intact HENT: Yes: WNL, Atraumatic, Normocephalic Neck: Yes: WNL, Supple, Trachea Midline Cardiovascular: Yes: WNL, Regular Rate and Rhythm Respiratory: Yes: WNL, Regular, CTA Bilaterally Gastrointestinal: Yes: WNL, Normal Bowel Sounds Musculoskeletal: Yes: WNL Extremities: Yes: WNL Edema: No Integumentary: Yes: WNL Neurological: Yes: WNL, Alert, Oriented ...Motor Strength: WNL Psychiatric: Yes: WNL Labs: CBC, BMP 12/28/17 08:00 Problem List - Problems (1) ESRD (end stage renal disease) Code(s): N18.6 - END STAGE RENAL DISEASE Assessment/Plan stenosis right avf 1. For venogram today
[2017-12-28 11:53] VITALS: BP 120/64; PULSE 62; TEMP 98.1
--- NOTE | 2018-01-22 17:32 | OP ---
DATE OF OPERATION: 12/28/2017 PREOPERATIVE DIAGNOSIS: Stenosis, right arteriovenous fistula. POSTOPERATIVE DIAGNOSIS: Stenosis, right arteriovenous fistula. PROCEDURE: Venogram, venoplasty of right arteriovenous fistula. FINDINGS: Stenosis 80% in the body of AV fistula. SURGEON: Lasha Farmer DO ANESTHESIA: Fractional. BLOOD LOSS: 10 mL The patient is a 72-year-old male who has a right AV fistula that had stenosis on preoperative ultrasound. It was decided that he would need a venogram. Patient was consented for the procedure, understanding all risks, benefits, and alternatives, then brought to the operating room. DESCRIPTION OF PROCEDURE: Once in the operating room, he was laid on the operative table in supine manner, and the area of the right arm was prepped and draped in a sterile surgical manner. Under ultrasound guidance, we were able to visualize the proximal right AV fistula, and 10 mL of lidocaine 1% was injected there. We then took our micropuncture needle, punctured the right AV fistula. Micropuncture wire was inserted. Micropuncture sheath was inserted, and a short 6-[place] sheath was inserted. We then went ahead and placed a 0.035 floppy guidewire up into the body of the AV fistula and into the central veins. We then shot a venogram via hand injection, showing that the mid-AV fistula had 80% stenosis. At this point, we went ahead and used an 8 x 8 [place] balloon and performed venoplasty of the AV fistula. Completion venogram showed that the AV fistula was now dilated. There was no recoil, and there was good flow all the way into the central veins. At this point, we took a 4-0 Biosyn stitch and a figure-of-8 stitch was placed around the sheath and the sheath was pulled. Area was wet and dried. Dermabond was placed. The patient tolerated the procedure with no complication. Patient transferred to PACU in stable condition. LASHA FARMER DO [employer]/[id number]
== END 2017-12-28 12:00 | disposition home or self-care (01) ==
LOC: JASU-SURG 07:22
PROVIDERS: ATTEND Surgery Vascular Surgery
PROC: 057Y3ZZ Dilation of Upper Vein, Percutaneous Approach (ICD-10-PCS; principal; 2017-12-28 09:00)
DX: T82.858A Stenosis of other vascular prosthetic devices, implants and grafts, initial encounter (principal); N18.6 End stage renal disease; Z99.2 Dependence on renal dialysis; I48.91 Unspecified atrial fibrillation; J44.9 Chronic obstructive pulmonary disease, unspecified
CPT/HCPCS: 36415; 76000-TC-FY; 84132; 94760; J1644

== ENCOUNTER 2018-10-15 11:51 | Emergency (ER) | payer OTHER ==
[2018-10-15 12:19] VITALS: BP 133/72; PULSE 79; TEMP 97.6; BMI 22.6
--- NOTE | 2018-10-15 12:34 | PDOC ---
Attending Attestation - Resident Resident Name: [email or web address] [email or web address] - HPI HPI: 10/15/18 13:46 Pt presents to the ED complaining of bleeding from his fistula after HD access yesterday. Patient is on eliquis and ASA for mechanical valve. States that he awoke with the bleeding this AM. - Physicial Exam PE: 10/15/18 13:50 Agree with resident exam. Patient is alert and oriented and in no acute distress. + thrill. Minimal oozing from puncture site. - Medical Decision Making 10/15/18 13:51 Pt presents to the ED complaining of bleeding from fistula. Resolving with pressure in the ED. Given that the patient reports significant bleeding at home, will check labs to evaluate for severe anemia. Will discharge home if bleeding stops and labs are within normal limits.
--- NOTE | 2018-10-15 12:35 | PDOC ---
History of Present Illness - General Chief Complaint: Dialysis Shunt Problem Stated Complaint: BLEEDING FROM DIALYSIS SHUNT Time Seen by Provider: 10/15/18 12:17 - History of Present Illness Initial Comments: 10/15/18 12:31 Mr. Morales is a 73 yo male w/ pmh of afib (on ASA / eliquis), CAD (s/p CABG), CHF, Aortic valve replacement (prosthetic), COPD, ESRD on HD (T/R/S through AV fistula on R side) who presents for evaluation of bleeding from dialysis site. Patient reports he had normal dialysis session w/out difficulty yesterday. Woke up this morning to find he had bleeding through his sweatshirt he fell asleep in. Denies any other symptoms at this time. The patient denies chest pain, shortness of breath, headache and dizziness. Denies fever, chills, nausea, vomit, diarrhea and constipation. Denies dysuria, frequency, urgency and hematuria. Past History - Past Medical History Allergies/Adverse Reactions: Allergies Allergy/AdvReac Type Severity Reaction Status Date / Time No Known Allergies Allergy Verified 04/14/18 15:47 Home Medications: Ambulatory Orders Apixaban [Eliquis] 2.5 mg PO DAILY 04/14/18 Aspirin [ASA -] 81 mg PO DAILY 04/14/18 Atorvastatin Ca [Lipitor] 20 mg PO HS 04/14/18 Azelastine HCl [Astepro] 1 - 2 spr NS BID 04/14/18 Budesonide/Formeterol Fumarate [SYMBICORT 160/4.5mcg -] 1 inh PO BID 04/14/18 Carvedilol [Coreg -] 12.5 mg PO BID 04/14/18 Cetirizine HCl [All Day Allergy] 10 mg PO DAILY 04/14/18 Cholecalciferol (Vitamin D3) [Vitamin D3] 3,000 unit PO DAILY 04/14/18 Diltiazem HCl [Cartia Xt] 180 mg PO DAILY 04/14/18 Levalbuterol Tartrate [Xopenex Hfa] 15 gm IH TID 04/14/18 Montelukast Sodium [Singulair] 10 mg PO DAILY 04/14/18 Omeprazole Magnesium [Prilosec Otc] 40 mg PO DAILY 04/14/18 Tiotropium [place] [Spiriva] 1 inh PO DAILY 04/14/18 Triamcinolone Acetonide [Nasacort] 10.8 ml NS BID 04/14/18 Zolpidem Tartrate [Ambien] 10 mg PO HS 04/14/18 traZODone HCL [Trazodone HCl] 100 mg PO HS 04/14/18 Levalbuterol HCl [Xopenex] 1.25 mg IH PRN PRN 10/15/18 Lisinopril 5 mg PO DAILY 10/15/18 Multivit-Min/FA/Lycopen/Lutein [Centrum Silver Men Tablet] 1 each PO DAILY 10/15 Anemia: Yes Asthma: No Cancer: No Cardiac Disorders: Yes (AF, CAD, CABG, AVR, PACEMAKER) CVA: No COPD: Yes CHF: Yes Dementia: No Diabetes: No Dialysis: Yes (RIGHT ARM A-V FISTULA) GI Disorders: No Disorders: Yes (ESRD) HTN: Yes Hypercholesterolemia: No Liver Disease: No Seizures: No Thyroid Disease: No - Surgical History Appendectomy: Yes Cardiac Surgery: Yes (triple bipass, VALVE REPLACED) Neurologic Surgery: Yes (FUSION) Orthopedic Surgery: Yes (PARTIAL REPLACEMENT-LEFT) - Immunization History Immunization Up to Date: Yes - Suicide/Smoking/Psychosocial Hx Smoking History: Former smoker Have you smoked in the past 12 months: No If you are a former smoker, when did you quit?: 1989 Information on smoking cessation initiated: No Hx Alcohol Use: No Drug/Substance Use Hx: No Substance Use Type: None Hx Substance Use Treatment: No Review of Systems - Review of Systems Comments:: 10/15/18 12:36 GENERAL/CONSTITUTIONAL: No fever or chills. No weakness. HEAD, EYES, EARS, NOSE AND THROAT: No change in vision. No ear pain or discharge. No sore throat. CARDIOVASCULAR: No chest pain or shortness of breath RESPIRATORY: No cough, wheezing, or hemoptysis. GASTROINTESTINAL: No nausea, vomiting, diarrhea or constipation. GENITOURINARY: No dysuria, frequency, or change in urination. MUSCULOSKELETAL: +Bleeding from dialysis site as described. No joint or muscle swelling or pain. No neck or back pain. SKIN: No rash NEUROLOGIC: No headache, vertigo, loss of consciousness, or change in strength/ sensation. ENDOCRINE: No increased thirst. No abnormal weight change HEMATOLOGIC/LYMPHATIC: No anemia, easy bleeding, or history of blood clots. ALLERGIC/IMMUNOLOGIC: No hives or skin allergy. *Physical Exam - Vital Signs Last Vital Signs Temp Pulse Resp BP Pulse Ox 97.6 F 79 20 133/72 96 10/15/18 11:53 10/15/18 11:53 10/15/18 11:53 10/15/18 11:53 10/15/18 11:53 - Physical Exam Comments: 10/15/18 12:36 GENERAL: Awake, alert, and fully oriented, in no acute distress HEAD: No signs of trauma, normocephalic, atraumatic EYES: PERRLA, EOMI, sclera anicteric, conjunctiva clear ENT: Auricles normal inspection, hearing grossly normal, nares patent, oropharynx clear without exudates. Moist mucosa NECK: Normal ROM, supple, no lymphadenopathy, JVD, or masses LUNGS: No distress, speaks full sentences, clear to auscultation bilaterally HEART: Regular rate and rhythm, normal S1 and S2, no murmurs, rubs or gallops, peripheral pulses normal and equal bilaterally. ABDOMEN: Soft, nontender, normoactive bowel sounds. No guarding, no rebound. No masses EXTREMITIES: +RUE fistula noted; bruit and thrill appreciated. Minor seeping blood from site. NEUROLOGICAL: Cranial nerves II through XII grossly intact. Normal speech, normal gait, no focal sensorimotor deficits SKIN: Warm, Dry, normal turgor, no rashes or lesions noted. Moderate Sedation - Procedure Monitoring Vital Signs: Procedure Monitoring Vital Signs Temperature 97.6 F 10/15/18 11:53 Pulse Rate 79 10/15/18 11:53 Respiratory Rate 20 10/15/18 11:53 Blood Pressure 133/72 10/15/18 11:53 O2 Sat by Pulse Oximetry (%) 96 10/15/18 11:53 ED Treatment Course - LABORATORY CBC & Chemistry Diagram: 10/15/18 13:00 10/15/18 13:00 Medical Decision Making - Medical Decision Making 10/15/18 14:13 Mr. Morales is a 73 yo male w/ pmh as described who presents for evaluation of bleeding from dialysis site. Patient evaluated with labs as below (all grossly wnl). Patient bleeding stopped with surgicel and held in place with GABE wrap. Discharging patient to home. Laboratory Results - last 24 hr 10/15/18 10/15/18 10/15/18 13:00 13:00 13:00 WBC 6.6 RBC 3.46 L Hgb 11.2 L Hct 34.6 L MCV 99.8 H MCH 32.4 MCHC 32.4 RDW 15.6 Plt Count 102 L D MPV 8.8 D Absolute Neuts (auto) 5.4 Neutrophils % 80.6 Lymphocytes % 8.0 D Monocytes % 6.3 Eosinophils % 4.4 D Basophils % 0.7 D PT with INR 20.0 H INR 1.81 H Sodium 136 Potassium 3.9 Chloride 103 Carbon Dioxide 21 Anion Gap 12 BUN 45 H Creatinine 3.5 H Creat Clearance w eGFR 17.21 Random Glucose 117 H Calcium 8.8 Total Bilirubin 1.4 H AST 23 ALT 16 Alkaline Phosphatase 161 H Total Protein 6.4 Albumin 3.5 *DC/Admit/Observation/Transfer Diagnosis at time of Disposition: Bleeding from dialysis shunt Qualifiers: Encounter type: initial encounter Qualified Code(s): T82.838A - Hemorrhage due to vascular prosthetic devices, implants and grafts, initial encounter - Discharge Dispostion Disposition: HOME Condition at time of disposition: Good - Referrals Referrals: Lillian Aldrich MD [Primary Care Provider] - - Patient Instructions Printed Discharge Instructions: DI for Dialysis Additional Instructions: You were evaluated today in the ER for your bleeding. We evaluated you with labs with no concerning findings. We stopped your bleeding and placed a bandage over the site. Leave bandage in place until this evening. Follow-up at dialysis tomorrow per normal. Return to ER if any fever, chills, increase in bleeding, or other concerning symptoms. - Post Discharge Activity
[2018-10-15 13:35] LABS: ALBUMIN 3.5 g/dl (3.4-5.0); ALK PHOS 161 U/L (45-117); ANION GAP 12 MMOL/L (8-16); BILIRUBIN,TOTAL 1.4 mg/dl (0.2-1); BLOOD UREA NITROGEN 45 mg/dl (7-18); CALCIUM 8.8 mg/dl (8.5-10); CHLORIDE 103 mmol/L (98-107); CO2 21 mmol/L (21-32); CREATININE 3.5 mg/dl (0.55-1.3); GLUCOSE,RANDOM 117 mg/dl (74-106); POTASSIUM 3.9 mmol/L (3.5-5.1); SGOT/AST 23 U/L (15-37); SGPT/ALT 16 U/L (13-61); SODIUM 136 mmol/L (136-145); TOT PROT 6.4 g/dl (6.4-8.2)
[2018-10-15 13:41] LABS: BASO % 0.7 % (0-2.0); EOS % 4.4 % (0-4.5); HEMATOCRIT 34.6 % (35.4-49); HEMOGLOBIN 11.2 GM/dl (11.7-16.9); MCH 32.4 pg (25.7-33.7); MCHC 32.4 g/dl (32.0-35.9); MEAN CELL VOLUME 99.8 fl (80-96); MEAN PLT VOLUME 8.8 fl (7.5-11.1); MONO % 6.3 % (3.8-10.2); NEUT % 80.6 % (42.8-82.8); PLATELET COUNT 102 K/MM3 (134-434); RBC 3.46 M/mm3 (4.00-5.60); RDW 15.6 % (11.9-15.9); WHITE BLOOD COUNT 6.6 K/mm3 (4.0-10.8)
[2018-10-15 13:42] LABS: INR 1.81 (0.82-1.09)
== END 2018-10-15 14:30 | disposition home or self-care (01) ==
LOC: FER 11:51
DX: T82.838A Hemorrhage due to vascular prosthetic devices, implants and grafts, initial encounter (principal); Y82.8 Other medical devices associated with adverse incidents; Y92.003 Bedroom of unspecified non-institutional (private) residence as the place of occurrence of the external cause; Y84.1 Kidney dialysis as the cause of abnormal reaction of the patient, or of later complication, without mention of misadventure at the time of the procedure; I12.0 Hypertensive chronic kidney disease with stage 5 chronic kidney disease or end stage renal disease; N18.6 End stage renal disease; Z99.2 Dependence on renal dialysis; Z87.891 Personal history of nicotine dependence; I48.91 Unspecified atrial fibrillation; I25.10 Atherosclerotic heart disease of native coronary artery without angina pectoris; I50.9 Heart failure, unspecified; Z95.2 Presence of prosthetic heart valve; J44.9 Chronic obstructive pulmonary disease, unspecified; D64.9 Anemia, unspecified; Z95.0 Presence of cardiac pacemaker; Z95.1 Presence of aortocoronary bypass graft
CPT/HCPCS: 36415; 80053; 85025; 85610; 86850; 86900; 86901; 99282-25

== ENCOUNTER 2018-11-30 12:53 | Inpatient (IN) | payer OTHER ==
[2018-11-30 13:15] VITALS: BMI 25.8
--- NOTE | 2018-11-30 13:58 | CONSULT ---
Consult Consult Specialty:: Nephrology Reason for Consultation:: ESRD - History of Present Illness Chief Complaint: presents becuase he wants to stop dialysis History of Present Illness: Pt is a 73 year old make with pmhx of ESRD, copd, bph, afib and aoritc aneurysm who presents to the ER as he wants to stop HD. He was last dialyzed on Thursday. He complains of increased shortness of breath with minimal ambulation. He says he is tired and does not want to dialyze. His daughter is with him at bedside. She denies chest pain. 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 History of Recent Travel: No Home Medications - Allergies Allergies/Adverse Reactions: Allergies Allergy/AdvReac Type Severity Reaction Status Date / Time No Known Allergies Allergy Verified 04/14/18 15:47 - Home Medications Home Medications: Ambulatory Orders Apixaban [Eliquis] 2.5 mg PO DAILY 04/14/18 Aspirin [ASA -] 81 mg PO DAILY 04/14/18 Atorvastatin Ca [Lipitor] 20 mg PO HS 04/14/18 Azelastine HCl [Astepro] 1 - 2 spr NS BID 04/14/18 Budesonide/Formeterol Fumarate [SYMBICORT 160/4.5mcg -] 1 inh PO BID 04/14/18 Carvedilol [Coreg -] 12.5 mg PO BID 04/14/18 Cetirizine HCl [All Day Allergy] 10 mg PO DAILY 04/14/18 Cholecalciferol (Vitamin D3) [Vitamin D3] 3,000 unit PO DAILY 04/14/18 Diltiazem HCl [Cartia Xt] 180 mg PO DAILY 04/14/18 Levalbuterol Tartrate [Xopenex Hfa] 15 gm IH TID 04/14/18 Montelukast Sodium [Singulair] 10 mg PO DAILY 04/14/18 Omeprazole Magnesium [Prilosec Otc] 40 mg PO DAILY 04/14/18 Tiotropium [place] [Spiriva] 1 inh PO DAILY 04/14/18 Triamcinolone Acetonide [Nasacort] 10.8 ml NS BID 04/14/18 Zolpidem Tartrate [Ambien] 10 mg PO HS 04/14/18 traZODone HCL [Trazodone HCl] 100 mg PO HS 04/14/18 Levalbuterol HCl [Xopenex] 1.25 mg IH PRN PRN 10/15/18 Lisinopril 5 mg PO DAILY 10/15/18 Multivit-Min/FA/Lycopen/Lutein [Centrum Silver Men Tablet] 1 each PO DAILY 10/15 Family Disease History - Family Disease History Family Disease History: Diabetes: Father ( from hear disease ), Mother ( diesd from heart disease ), Sister ( 2 sisters have cancer, detail not available ), Daughter (healthy ) Review of Systems - Review of Systems Constitutional: reports: Malaise. denies: Chills Eyes: reports: No Symptoms HENT: reports: No Symptoms Neck: reports: No Symptoms Cardiovascular: reports: Edema, Shortness of Breath Respiratory: reports: Cough, SOB, SOB on Exertion Genitourinary: reports: No Symptoms Musculoskeletal: reports: Muscle Weakness Integumentary: reports: No Symptoms Neurological: reports: No Symptoms Endocrine: reports: No Symptoms Hematology/Lymphatic: reports: No Symptoms Psychiatric: reports: No Symptoms Physical Exam Vital Signs: Vital Signs Temperature 97.9 F 11/30/18 13:09 Pulse Rate 64 11/30/18 13:09 Respiratory Rate 18 11/30/18 13:09 Blood Pressure 122/75 11/30/18 13:09 O2 Sat by Pulse Oximetry (%) 96 11/30/18 13:09 Constitutional: Yes: Calm Eyes: Yes: Conjunctiva Clear HENT: Yes: Atraumatic Cardiovascular: Yes: S1, S2 Respiratory: Yes: Rhonchi Gastrointestinal: Yes: Soft Renal/: Yes: WNL Edema: Yes Edema: LLE: 1+, RLE: 1+ Neurological: Yes: Oriented Psychiatric: Yes: Oriented Problem List - Problems (1) ESRD (end stage renal disease) Code(s): N18.6 - END STAGE RENAL DISEASE Assessment/Plan Impression 1. ESRD 2. hemoptysis 3. anemia 4. hx GI bleed 5. BPH 6. a-fib 7. aortic aneurysm 8. COPD 9. insomnia 10. hx SBO 11. COPD post 911 exposure 12. fluid overload 13. pleural effusion 14. MAC in sputum Plan - spoke to pt abd daughter at length - pulm eval to check for reversible disease - psych eval - palliative care - he does not want any hd today - discussed with ER
--- NOTE | 2018-11-30 14:52 | PDOC ---
History of Present Illness - History of Present Illness Initial Comments: 11/30/18 14:56 The patient is a 73 year old male accompanied with his daughter with a past medical history of fei-jkuyx-kpeom-disease, chronic obstructive pulmonary disease, atrial fibrillation, aortic aneurysm, and benign prostatic hyperplasia who presents to the emergency department for evaluation of shortness of breath. Patient reports a 3 day history of worsening shortness of breath and dyspnea on exertion since his last dialysis session on Thursday. He endorses chest pain when he is short of breath after exertion or walking. Patient states he has been feeling more short of breath and lethargic over the last 2 weeks which prompted him to visit the emergency department for further evaluation. Patient notes he did not receive dialysis treatment today. The patient denies headache, dizziness, fevers, chills, nausea, vomiting, diarrhea, constipation, dysuria, hematuria, and urinary urgency/frequency. Allergies: No known allergies. Social History: Prior cigarette use. No reported alcohol or drug use. PCP: Dr. Aldrich Rewrite Editor: Dr. Ki Schultz <Duarte Mclean - Last Filed: 11/30/18 15:00> - General History Source: Patient, Primary Care Provider Exam Limitations: No Limitations <Ulises Vuong - Last Filed: 11/30/18 16:32> - General Stated Complaint: SOB Time Seen by Provider: 11/30/18 13:51 Past History <Duarte Mclean - Last Filed: 11/30/18 15:00> - Past Medical History Anemia: Yes Asthma: No Cancer: No Cardiac Disorders: Yes (AF, CAD, CABG, AVR, PACEMAKER) CVA: No COPD: Yes CHF: Yes Dementia: No Diabetes: No Dialysis: Yes (RIGHT ARM A-V FISTULA) GI Disorders: No Disorders: Yes (ESRD) HTN: Yes Hypercholesterolemia: No Liver Disease: No Seizures: No Thyroid Disease: No - Surgical History Appendectomy: Yes Cardiac Surgery: Yes (triple bipass, VALVE REPLACED) Neurologic Surgery: Yes (FUSION) Orthopedic Surgery: Yes (PARTIAL REPLACEMENT-LEFT) - Immunization History Immunization Up to Date: Yes - Suicide/Smoking/Psychosocial Hx Smoking History: Never smoked Have you smoked in the past 12 months: No If you are a former smoker, when did you quit?: 1989 Information on smoking cessation initiated: No Hx Alcohol Use: No Drug/Substance Use Hx: No Substance Use Type: None Hx Substance Use Treatment: No <CarolannGeovanyUlises - Last Filed: 11/30/18 16:32> - Past Medical History Allergies/Adverse Reactions: Allergies Allergy/AdvReac Type Severity Reaction Status Date / Time No Known Allergies Allergy Verified 04/14/18 15:47 Home Medications: Ambulatory Orders Apixaban [Eliquis] 2.5 mg PO DAILY 04/14/18 Aspirin [ASA -] 81 mg PO DAILY 04/14/18 Atorvastatin Ca [Lipitor] 20 mg PO HS 04/14/18 Azelastine HCl [Astepro] 1 - 2 spr NS BID 04/14/18 Budesonide/Formeterol Fumarate [SYMBICORT 160/4.5mcg -] 1 inh PO BID 04/14/18 Carvedilol [Coreg -] 12.5 mg PO BID 04/14/18 Cetirizine HCl [All Day Allergy] 10 mg PO DAILY 04/14/18 Cholecalciferol (Vitamin D3) [Vitamin D3] 3,000 unit PO DAILY 04/14/18 Diltiazem HCl [Cartia Xt] 180 mg PO DAILY 04/14/18 Levalbuterol Tartrate [Xopenex Hfa] 15 gm IH TID 04/14/18 Montelukast Sodium [Singulair] 10 mg PO DAILY 04/14/18 Omeprazole Magnesium [Prilosec Otc] 40 mg PO DAILY 04/14/18 Tiotropium [place] [Spiriva] 1 inh PO DAILY 04/14/18 Triamcinolone Acetonide [Nasacort] 10.8 ml NS BID 04/14/18 Zolpidem Tartrate [Ambien] 10 mg PO HS 04/14/18 traZODone HCL [Trazodone HCl] 100 mg PO HS 04/14/18 Levalbuterol HCl [Xopenex] 1.25 mg IH PRN PRN 10/15/18 Lisinopril 5 mg PO DAILY 10/15/18 Multivit-Min/FA/Lycopen/Lutein [Centrum Silver Men Tablet] 1 each PO DAILY 10/15 Review of Systems - Review of Systems Constitutional: No: Chills, Fever Respiratory: Yes: Shortness of Breath, SOB with Exertion Cardiac (ROS): Yes: Chest Pain. No: Edema, Syncope ABD/GI: No: Diarrhea, Vomiting Neurological: No: Headache All Other Systems: Reviewed and Negative <Ulises Vuong - Last Filed: 11/30/18 16:32> *Physical Exam - Vital Signs Last Vital Signs Temp Pulse Resp BP Pulse Ox 97.9 F 64 18 122/75 96 11/30/18 13:09 11/30/18 13:09 11/30/18 13:09 11/30/18 13:09 11/30/18 13:09 - Physical Exam Comments: 11/30/18 14:57 GENERAL: The patient is awake, alert, and fully oriented, in no acute distress. HEAD: Normal with no signs of trauma. EYES: Pupils equal, round and reactive to light, extraocular movements intact, sclera anicteric, conjunctiva clear with no pallor. ENT: Ears normal, nares patent, oropharynx clear. Moist mucous membranes. NECK: Normal range of motion, supple without lymphadenopathy, JVD, or masses. LUNGS: (+)Distant breath sounds to auscultation bilaterally. No wheeze/ crackles. HEART: Regular rate and rhythm, normal S1 and S2. ABDOMEN: Soft/nontender/nondistended. BS wnl. No guarding or rebound. No palpable masses. No hepatosplenomegaly. EXTREMITIES: (+)Right AV Fistula with palpable thrill. Normal range of motion, no edema. No clubbing or cyanosis. No cords, erythema, or tenderness. NEUROLOGICAL: Cranial nerves II through XII grossly intact. Normal speech, normal gait. PSYCH: Normal mood, normal affect. SKIN: Warm, Dry, normal turgor, no rashes or lesions noted. <Duarte Mclean - Last Filed: 11/30/18 15:00> - Vital Signs Last Vital Signs Temp Pulse Resp BP Pulse Ox 97.9 F 64 18 122/75 96 11/30/18 13:09 11/30/18 13:09 11/30/18 13:09 11/30/18 13:09 11/30/18 13:09 <Ulises Vuong - Last Filed: 11/30/18 16:32> Heart Score/ECG Review #1 ECG reviewed & interpreted by me at: 14:24 11/30/18 14:51 v-paced at 62. no secondary sign of acute ischemic change <Ulises Vuong - Last Filed: 11/30/18 16:32> ED Treatment Course - LABORATORY CBC & Chemistry Diagram: 11/30/18 14:34 11/30/18 14:34 <Duarte Mclean - Last Filed: 11/30/18 15:00> - LABORATORY CBC & Chemistry Diagram: 11/30/18 14:34 11/30/18 14:34 - RADIOLOGY Radiology Studies Ordered: Category Date Time Status CHEST X-RAY PORTABLE* [RAD] Stat Radiology 11/30/18 13:47 Taken <Ulises Vuong - Last Filed: 11/30/18 16:32> Medical Decision Making - Medical Decision Making 11/30/18 14:50 73-year-old male end-stage renal disease, primary lung disease from 1 presents for admission for persistent respiratory failure, increasing dyspnea on exertion, and possible termination of dialysis. Last dialyzed on Thursday as scheduled, did not go to dialysis today. Denies any chest pain except when his O2 sats dropped to the 60s and 70s, typically with exertion. Exam as noted 73-year-old male sent for admission for acute on chronic respiratory failure. Labs sent EKG, chest x-ray Seen by Dr. French in the emergency department, will obtain pulmonary and psych consults regarding capacity/palliative care. 11/30/18 16:31 labs wnl, K 3.2 accepted for inpatient admission by Dr. Dipika Uriarte. Dr. Ortega consulted psych/pulm. <Ulises Vuong - Last Filed: 11/30/18 16:32> *DC/Admit/Observation/Transfer - Attestations Scribe Attestion: 11/30/18 14:58 Documentation prepared by Duarte Mclean, acting as medical driver for Ulises Vuong MD. <Duarte Mclean - Last Filed: 11/30/18 15:00> - Discharge Dispostion Decision to Admit order: Yes <Ulises Vuong - Last Filed: 11/30/18 16:32> Diagnosis at time of Disposition: ESRD (end stage renal disease) - Discharge Dispostion Condition at time of disposition: Fair - Referrals Referrals: Lillian Aldrich MD [Primary Care Provider] - - Patient Instructions - Post Discharge Activity
[2018-11-30 14:56] LABS: BASO % 1.1 % (0-2.0); EOS % 4.4 % (0-4.5); HEMATOCRIT 38.7 % (35.4-49); HEMOGLOBIN 13.2 GM/dL (11.7-16.9); LYMPH % 7.6 % (8-40); MCH 34.4 pg (25.7-33.7); MCHC 34.2 g/dl (32.0-35.9); MEAN CELL VOLUME 100.6 fl (80-96); MEAN PLT VOLUME 9.4 fl (7.5-11.1); MONO % 8.1 % (3.8-10.2); NEUT % 78.8 % (42.8-82.8); PLATELET COUNT 87 K/MM3 (134-434); RBC 3.85 M/mm3 (4.00-5.60); RDW 15.7 % (11.9-15.9); WHITE BLOOD COUNT 6.5 K/mm3 (4.0-10.0)
[2018-11-30 15:13] LABS: INR 1.39 (0.83-1.09); PROTHROMBIN TIME (PATIENT) 16.5 SEC (9.7-13.0)
[2018-11-30 15:24] LABS: ALBUMIN 3.4 g/dl (3.4-5.0); ALK PHOS 174 U/L (45-117); ANION GAP 11 MMOL/L (8-16); BILIRUBIN,TOTAL 1.2 mg/dL (0.2-1); BLOOD UREA NITROGEN 57 mg/dL (7-18); CALCIUM 8.8 mg/dL (8.5-10.1); CHLORIDE 103 mmol/L (98-107); CO2 23 mmol/L (21-32); CREATININE 4.7 mg/dL (0.55-1.3); GLUCOSE,RANDOM 99 mg/dL (74-106); MAGNESIUM 2.6 mg/dL (1.8-2.4); N-TERMINAL BNP 30604.8 pg/ml (5-125); POTASSIUM 3.2 mmol/L (3.5-5.1); SGOT/AST 21 U/L (15-37); SGPT/ALT 18 U/L (13-61); SODIUM 138 mmol/L (136-145); TOT PROT 6.6 g/dl (6.4-8.2)
[2018-11-30] MEDS ORDERED: LEVALBUTEROL HCL 1.25 MG IH PRN (16:44)
[2018-11-30] MEDS ORDERED: ALBUTEROL SO4 2.5/IPRATROPIUM 0.5 INH SOL 3 ML VIAL.NEB. NEB PRN (16:49)
--- NOTE | 2018-11-30 17:00 | HP ---
Admitting History and Physical - Admission Chief Complaint: MCKEON with cough and expectoration History of Present Illness: 73 yrs old man multiple co-morbidities H/o HTN, AVR, Chronic thrombocytopenia, dHF chronically elevated BNP around 30 K, Stable AAA, CAD s/p CABG, Afib on AC rate controlled tachycardia induced cardiomyopathy in the past recovered as per previous cardiology evaluation in Apr 2018, advanced COPD on Home O2 911 survival, ESRD on HD last HD was on Thursday, today patient refused HD says its not helping him so Daily Sales Audit Clerk referred him to Ed for Psych evaluation and management, patient also c/o worsening SOB with MCKEON and cough with yellow expectoration, denies any fever, chills, fever patient c/o nausea and regurgitation. At the time of evaluation daughter at bed side, in the Ed evaluated by Nephrology and Pulmonary and Psych consult is called. 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 History of Recent Travel: No Home Medications - Allergies Allergies/Adverse Reactions: Allergies Allergy/AdvReac Type Severity Reaction Status Date / Time No Known Allergies Allergy Verified 04/14/18 15:47 - Home Medications Home Medications: Ambulatory Orders Apixaban [Eliquis] 2.5 mg PO DAILY 04/14/18 Aspirin [ASA -] 81 mg PO DAILY 04/14/18 Atorvastatin Ca [Lipitor] 20 mg PO HS 04/14/18 Azelastine HCl [Astepro] 1 - 2 spr NS BID 04/14/18 Budesonide/Formeterol Fumarate [SYMBICORT 160/4.5mcg -] 1 inh PO BID 04/14/18 Carvedilol [Coreg -] 12.5 mg PO BID 04/14/18 Cetirizine HCl [All Day Allergy] 10 mg PO DAILY 04/14/18 Cholecalciferol (Vitamin D3) [Vitamin D3] 3,000 unit PO DAILY 04/14/18 Diltiazem HCl [Cartia Xt] 180 mg PO DAILY 04/14/18 Levalbuterol Tartrate [Xopenex Hfa] 15 gm IH TID 04/14/18 Montelukast Sodium [Singulair] 10 mg PO DAILY 04/14/18 Omeprazole Magnesium [Prilosec Otc] 40 mg PO DAILY 04/14/18 Tiotropium [place] [Spiriva] 1 inh PO DAILY 04/14/18 Triamcinolone Acetonide [Nasacort] 10.8 ml NS BID 04/14/18 Zolpidem Tartrate [Ambien] 10 mg PO HS 04/14/18 traZODone HCL [Trazodone HCl] 100 mg PO HS 04/14/18 Levalbuterol HCl [Xopenex] 1.25 mg IH PRN PRN 10/15/18 Lisinopril 5 mg PO DAILY 10/15/18 Multivit-Min/FA/Lycopen/Lutein [Centrum Silver Men Tablet] 1 each PO DAILY 10/15 Family Disease History - Family Disease History Family Disease History: Diabetes: Father ( from hear disease ), Mother ( diesd from heart disease ), Sister ( 2 sisters have cancer, detail not available ), Daughter (healthy ) Review of Systems - Review of Systems Constitutional: reports: Loss of Appetite. denies: Chills, Diaphoresis, Fever Cardiovascular: reports: Edema, Shortness of Breath. denies: Chest Pain, Palpitations Respiratory: reports: Cough, Exercise Intolerance, SOB on Exertion. denies: Hemoptysis Gastrointestinal: reports: Other (GERD). denies: Abdominal Pain, Constipation Integumentary: denies: Blister, Bruising, Change in Color Neurological: denies: Change in LOC, Change in Speech, Confusion Endocrine: denies: Excessive Sweating, Flushing Hematology/Lymphatic: reports: Easily Bruised Physical Examination Vital Signs: Vital Signs Temperature 97.9 F 11/30/18 13:09 Pulse Rate 64 11/30/18 13:09 Respiratory Rate 18 11/30/18 13:09 Blood Pressure 122/75 11/30/18 13:09 O2 Sat by Pulse Oximetry (%) 96 11/30/18 13:09 Elderly frail man , sick looking and SOB no acute distress, sitting on the chair HEENT:Mm moist, no anemia, pERRLA, EOMI NECK; JVD +, no Bruit CHEST: Basal crepts no wheezing CVS; S1S2 SM in AA ABD; Soft non tender BS + EXT: Edema feet, +, pulses + TREATER: AOX3 non focal Labs: WBC 6.5 K/mm3 (4.0-10.0) 11/30/18 14:34 RBC 3.85 M/mm3 (4.00-5.60) L 11/30/18 14:34 Hgb 13.2 GM/dL (11.7-16.9) 11/30/18 14:34 Hct 38.7 % (35.4-49) D 11/30/18 14:34 MCV 100.6 fl (80-96) H 11/30/18 14:34 MCH 34.4 pg (25.7-33.7) H 11/30/18 14:34 MCHC 34.2 g/dl (32.0-35.9) 11/30/18 14:34 RDW 15.7 % (11.9-15.9) 11/30/18 14:34 Plt Count 87 K/MM3 (134-434) L D 11/30/18 14:34 MPV 9.4 fl (7.5-11.1) D 11/30/18 14:34 Absolute Neuts (auto) 5.1 K/mm3 (1.5-8.0) 11/30/18 14:34 Neutrophils % 78.8 % (42.8-82.8) 11/30/18 14:34 Lymphocytes % 7.6 % (8-40) L 11/30/18 14:34 Monocytes % 8.1 % (3.8-10.2) 11/30/18 14:34 Eosinophils % 4.4 % (0-4.5) 11/30/18 14:34 Basophils % 1.1 % (0-2.0) 11/30/18 14:34 Nucleated RBC % 0 % (0-0) 11/30/18 14:34 Sodium 138 mmol/L (136-145) 11/30/18 14:34 Potassium 3.2 mmol/L (3.5-5.1) L 11/30/18 14:34 Chloride 103 mmol/L (98-107) 11/30/18 14:34 Carbon Dioxide 23 mmol/L (21-32) 11/30/18 14:34 Anion Gap 11 MMOL/L (8-16) 11/30/18 14:34 BUN 57 mg/dL (7-18) H 11/30/18 14:34 Creatinine 4.7 mg/dL (0.55-1.3) H 11/30/18 14:34 Creat Clearance w eGFR 12.25 (>60) 11/30/18 14:34 Random Glucose 99 mg/dL (74-106) 11/30/18 14:34 Calcium 8.8 mg/dL (8.5-10.1) 11/30/18 14:34 Magnesium 2.6 mg/dL (1.8-2.4) H 11/30/18 14:34 Total Bilirubin 1.2 mg/dL (0.2-1) H 11/30/18 14:34 AST 21 U/L (15-37) 11/30/18 14:34 ALT 18 U/L (13-61) 11/30/18 14:34 Alkaline Phosphatase 174 U/L (45-117) H 11/30/18 14:34 Creatine Kinase 37 U/L (26-308) 11/30/18 14:34 Troponin I 0.06 ng/ml (0.00-0.05) H 11/30/18 14:34 B-Natriuretic Peptide 16903.8 pg/ml (5-125) H 11/30/18 14:34 Total Protein 6.6 g/dl (6.4-8.2) 11/30/18 14:34 Albumin 3.4 g/dl (3.4-5.0) 11/30/18 14:34 Imaging - Results X-ray: Report Reviewed (Cardiomegally, mild Ctr Pulmonary congestion) EKG: Report Reviewed (Paceed rhythm at 67) Problem List - Problems (1) SOB (shortness of breath) Assessment/Plan: Patient has chronic SOB multiple etiologies COPD, CHF and CKD refused HD possibility of Volume over load evaluated by Daily Sales Audit Clerk , patient was due for HD but considering not taking HD as its is not helping patient want Palliative care at home BIB family on suggestion of Daily Sales Audit Clerk to evalute mental status at present patient denies any active suicidal or homicidal thought but very depressed and angry with his non resolving health issues. Will cont current cardiac and COPD medication sputum culture and sensitivity add Augmentin f/U Pulmonary input. Code(s): R06.02 - SHORTNESS OF BREATH (2) COPD exacerbation Assessment/Plan: C/O cough and expoectoration, no gross wheezing also c/o MCKEON will add Augmentin , and PRN Duoneb on all his home meds F/U CBC and Pulmonary input. Code(s): J44.1 - CHRONIC OBSTRUCTIVE PULMONARY DISEASE W (ACUTE) EXACERBATION (3) ESRD (end stage renal disease) Assessment/Plan: on HD refusing HD evaluated by Pulmonary consult will F/U Pallitive and Psych input. Code(s): N18.6 - END STAGE RENAL DISEASE (4) CHF (congestive heart failure) Assessment/Plan: In thae past H/O tachycardia induced cardiomyopathy with low Ef last EF was recorded normal (as per cardiology note 04/24) , resume all home cardiac meds O2 inhalation mild elevation of Trop with advanced CKD and CHF, patient pro BNP is at base line, no gross pulmonary congestion. 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 Code(s): I48.91 - UNSPECIFIED ATRIAL FIBRILLATION (8) Thrombocytopenia Assessment/Plan: Chronic , Plat count is 87 almost at base line Code(s): D69.6 - THROMBOCYTOPENIA, UNSPECIFIED (9) Palliative care encounter Assessment/Plan: Will refer the patient to pallitive care for evaluation and management. Code(s): Z51.5 - ENCOUNTER FOR PALLIATIVE CARE (10) Hypokalemia Assessment/Plan: K 3.2 considering CKD not on HD will defer K replacement. F/U BMP in am Code(s): E87.6 - HYPOKALEMIA
--- NOTE | 2018-11-30 21:56 | EKG ---
Test Reason : Blood Pressure : / mmHG Vent. Rate : 062 BPM Atrial Rate : 326 BPM P-R Int : 000 ms QRS Dur : 208 ms QT Int : 546 ms P-R-T Axes : 080 -89 097 degrees QTc Int : 554 ms Possible atrial flutter Ventricular-paced rhythm ABNORMAL ECG WHEN COMPARED WITH ECG OF 15-APR-2018 09:15, NO SIGNIFICANT CHANGE WAS FOUND Confirmed by MD EMMETT, ARTURO ([id number]) on 11/30/2018 9:56:20 PM Referred By: Confirmed By:ARTURO CHRISTINE MD
[2018-11-30] MEDS ORDERED: ZOLPIDEM TARTRATE 5 MG TABLET PO PRN (22:00)
[2018-11-30] MEDS ORDERED: ATORVASTATIN CA 20 MG TABLET (FP) PO SCH (22:00)
[2018-11-30] MEDS ORDERED: traZODone HCL 50 MG TABLET (FP) PO SCH (22:00)
[2018-11-30] MEDS ORDERED: AZELASTINE HCL NS SCH (22:00)
[2018-11-30] MEDS: CARVEDILOL 12.5 MG TABLET (FP) PO SCH (22:03)
[2018-11-30] MEDS: AMOX TR/POT CLAV 500MG/125MG TABLETS (FP) PO SCH (22:03)
[2018-11-30] MEDS: FLUTICASONE PROP 0.05% 16 GM NASAL SPRAY NS SCH (22:20)
[2018-11-30] MEDS: BUDESONIDE/FORMETEROL FUMARATE 160/4.5 mcg INHALER IH SCH (22:20)
[2018-12-01] MEDS ORDERED: POTASSIUM CHLORIDE TABS 20 MEQ TABLET.ER (FP) PO ONE (08:30)
[2018-12-01] MEDS ORDERED: PT OWN MED DRAWER 7, Y5N ONE ×2 (08:56→10:52)
[2018-12-01] MEDS: AMOX TR/POT CLAV 500MG/125MG TABLETS (FP) PO SCH (09:00)
[2018-12-01] MEDS: CARVEDILOL 12.5 MG TABLET (FP) PO SCH (09:00)
[2018-12-01] MEDS: BUDESONIDE/FORMETEROL FUMARATE 160/4.5 mcg INHALER IH SCH (09:00)
[2018-12-01] MEDS: FLUTICASONE PROP 0.05% 16 GM NASAL SPRAY NS SCH (09:01)
[2018-12-01] MEDS ORDERED: APIXABAN 2.5 MG TABLET PO SCH (10:00)
[2018-12-01] MEDS ORDERED: LISINOPRIL 5 MG TABLET (FP) PO SCH (10:00)
[2018-12-01] MEDS ORDERED: CHOLECALCIFEROL (VIT D3) 1,000 UNIT (25 MCG) TABLET PO SCH (10:00)
[2018-12-01] MEDS ORDERED: TIOTROPIUM BROMIDE 2.5 MCG (SPIRIVA) RESPIMAT INHALER IH SCH (10:00)
[2018-12-01] MEDS ORDERED: LORATADINE 10 MG TABLET PO SCH (10:00)
[2018-12-01] MEDS ORDERED: MULTIVITAMINS (DAILY MVI) TABLET (FP) PO SCH (10:00)
[2018-12-01] MEDS ORDERED: ASPIRIN 81 MG CHEWABLE TABLETS PO SCH (10:00)
[2018-12-01] MEDS ORDERED: PANTOPRAZOLE 40 MG TABLET (FP) PO SCH (10:00)
[2018-12-01 10:35] VITALS: BP 127/75; PULSE 70; TEMP 98
--- NOTE | 2018-12-01 12:49 | PN ---
Progress Note, Physician History of Present Illness: Pt seen and examined at bedside. He does not want HD anymore. He wants to go on hospice. HE agrees to see psych first. - Current Medication List Current Medications: Active Medications Albuterol/Ipratropium (Duoneb -) 1 amp NEB Q6H PRN PRN Reason: SHORTNESS OF BREATH Aspirin (Asa -) 81 mg PO DAILY [facility] Last Admin: 12/01/18 09:09 Dose: Not Given Atorvastatin Calcium (Lipitor -) 20 mg PO [facility] Last Admin: 11/30/18 22:03 Dose: 20 mg Budesonide/Formoterol Fumarate (Symbicort 160/4.5mcg -) 2 puff IH BID [facility] Last Admin: 12/01/18 09:00 Dose: 2 puff Carvedilol (Coreg -) 12.5 mg PO BID [facility] Last Admin: 12/01/18 09:00 Dose: 12.5 mg Cholecalciferol (Vitamin D3 -) 3,000 unit PO DAILY [facility] Last Admin: 12/01/18 08:59 Dose: 3,000 unit Diltiazem HCl (Cardizem Cd -) 180 mg PO DAILY [facility] Last Admin: 12/01/18 09:00 Dose: 180 mg Fluticasone Propionate (Flonase -) 1 spray NS BID [facility] Last Admin: 12/01/18 09:01 Dose: 1 spray Lisinopril (Prinivil) 5 mg PO DAILY [facility] Last Admin: 12/01/18 09:00 Dose: 5 mg Loratadine (Claritin -) 10 mg PO DAILY [facility] Last Admin: 12/01/18 09:00 Dose: 10 mg Montelukast Sodium (Singulair -) 10 mg PO [facility] Multivitamins/Minerals/Vitamin C (Tab-A-Vit -) 1 tab PO DAILY [facility] Last Admin: 12/01/18 09:09 Dose: Not Given Non-Formulary Medication (Azelastine Hcl [Astepro]) 2 spr NS BID [facility] Pantoprazole Sodium (Protonix -) 40 mg PO DAILY [facility] Last Admin: 12/01/18 08:59 Dose: 40 mg Tiotropium [place] (Spiriva Respimat) 2 puff IH DAILY [facility] Last Admin: 12/01/18 10:57 Dose: 2 puff Trazodone HCl (Desyrel -) 100 mg PO [facility] Last Admin: 11/30/18 22:03 Dose: 100 mg Zolpidem Tartrate (Ambien -) 5 mg PO HS PRN PRN Reason: INSOMNIA - Objective Vital Signs: Vital Signs Temperature 98.0 F 12/01/18 10:00 Pulse Rate 70 12/01/18 10:00 Respiratory Rate 20 12/01/18 10:00 Blood Pressure 127/75 12/01/18 10:00 O2 Sat by Pulse Oximetry (%) 98 12/01/18 09:00 Constitutional: Yes: Calm Eyes: Yes: Conjunctiva Clear HENT: Yes: Atraumatic Neck: Yes: Supple Cardiovascular: Yes: S1, S2 Respiratory: Yes: Rhonchi, SOB on Exertion Gastrointestinal: Yes: Normal Bowel Sounds Genitourinary: Yes: WNL Edema: Yes Edema: LLE: 1+, RLE: 1+ Neurological: Yes: Oriented Psychiatric: Yes: Oriented Labs: CBC, BMP 11/30/18 14:34 11/30/18 14:34 INR, PTT INR 1.39 (0.83-1.09) H 11/30/18 14:34 Problem List - Problems (1) ESRD (end stage renal disease) Code(s): N18.6 - END STAGE RENAL DISEASE Assessment/Plan Current Medications Generic Name Dose Route Start Last Admin Trade Name Freq PRN Reason Stop Dose Admin Albuterol/Ipratropium 1 amp 11/30/18 16:49 Duoneb - NEB Q6H PRN SHORTNESS OF BREATH Aspirin 81 mg 12/01/18 10:00 12/01/18 09:09 Asa - PO Not Given DAILY [facility] Atorvastatin Calcium 20 mg 11/30/18 22:00 11/30/18 22:03 Lipitor - PO 20 mg HS [facility] Administration Budesonide/Formoterol Fumarate 2 puff 11/30/18 22:00 12/01/18 09:00 Symbicort 160/4.5mcg - IH 2 puff BID [facility] Administration Carvedilol 12.5 mg 11/30/18 22:00 12/01/18 09:00 Coreg - PO 12.5 mg BID [facility] Administration Cholecalciferol 3,000 unit 12/01/18 10:00 12/01/18 08:59 Vitamin D3 - PO 3,000 unit DAILY [facility] Administration Diltiazem HCl 180 mg 12/01/18 10:00 12/01/18 09:00 Cardizem Cd - PO 180 mg DAILY [facility] Administration Fluticasone Propionate 1 spray 11/30/18 22:00 12/01/18 09:01 Flonase - NS 1 spray BID [facility] Administration Lisinopril 5 mg 12/01/18 10:00 12/01/18 09:00 Prinivil PO 5 mg DAILY [facility] Administration Loratadine 10 mg 12/01/18 10:00 12/01/18 09:00 Claritin - PO 10 mg DAILY [facility] Administration Montelukast Sodium 10 mg 12/01/18 22:00 Singulair - PO HS [facility] Multivitamins/Minerals/Vitamin C 1 tab 12/01/18 10:00 12/01/18 09:09 Tab-A-Vit - PO Not Given DAILY [facility] Non-Formulary Medication 2 spr 11/30/18 22:00 Azelastine Hcl [Astepro] NS BID [facility] Pantoprazole Sodium 40 mg 12/01/18 10:00 12/01/18 08:59 Protonix - PO 40 mg DAILY [facility] Administration Tiotropium [place] 2 puff 12/01/18 10:00 12/01/18 10:57 Spiriva Respimat IH 2 puff DAILY [facility] Administration Trazodone HCl 100 mg 11/30/18 22:00 11/30/18 22:03 Desyrel - PO 100 mg HS [facility] Administration Zolpidem Tartrate 5 mg 11/30/18 22:00 Ambien - PO HS PRN INSOMNIA Impression 1. ESRD 2. hemoptysis 3. anemia 4. hx GI bleed 5. BPH 6. a-fib 7. aortic aneurysm 8. COPD 9. insomnia 10. hx SBO 11. COPD post 911 exposure 12. fluid overload 13. pleural effusion 14. MAC in sputum Plan - pt will meet with hospice - pt agrees to meet with psych before he finalizes decision - no labs for now per his request - note pt is breathing comfortably off of oxygen on room air - family at bedside and care discussed with them
--- NOTE | 2018-12-01 14:41 | CON.PSY ---
Psychiatry Consult Chief Complaint: Luke castaneda said that I am going to jump out of 5the window because they were bothering me. I dont wAnt to kill myself. I just want to go home. Symptoms: reports: Irritability - Previous Psychiatric Treatment Outpatient: None Inpatient: None - Previous Substance Abuse Treatment Outpatient: None Inpatient: None - Reason for Previous Treatment Reason for Previous Treatment: Anxiety or Panic Disorder - Current Medications Current Medications: Active Medications Albuterol/Ipratropium (Duoneb -) 1 amp NEB Q6H PRN PRN Reason: SHORTNESS OF BREATH Aspirin (Asa -) 81 mg PO DAILY [facility] Last Admin: 12/01/18 09:09 Dose: Not Given Atorvastatin Calcium (Lipitor -) 20 mg PO HS [facility] Last Admin: 11/30/18 22:03 Dose: 20 mg Budesonide/Formoterol Fumarate (Symbicort 160/4.5mcg -) 2 puff IH BID [facility] Last Admin: 12/01/18 09:00 Dose: 2 puff Carvedilol (Coreg -) 12.5 mg PO BID [facility] Last Admin: 12/01/18 09:00 Dose: 12.5 mg Cholecalciferol (Vitamin D3 -) 3,000 unit PO DAILY [facility] Last Admin: 12/01/18 08:59 Dose: 3,000 unit Diltiazem HCl (Cardizem Cd -) 180 mg PO DAILY [facility] Last Admin: 12/01/18 09:00 Dose: 180 mg Fluticasone Propionate (Flonase -) 1 spray NS BID [facility] Last Admin: 12/01/18 09:01 Dose: 1 spray Lisinopril (Prinivil) 5 mg PO DAILY [facility] Last Admin: 12/01/18 09:00 Dose: 5 mg Loratadine (Claritin -) 10 mg PO DAILY [facility] Last Admin: 12/01/18 09:00 Dose: 10 mg Montelukast Sodium (Singulair -) 10 mg PO [facility] Multivitamins/Minerals/Vitamin C (Tab-A-Vit -) 1 tab PO DAILY [facility] Last Admin: 12/01/18 09:09 Dose: Not Given Non-Formulary Medication (Azelastine Hcl [Astepro]) 2 spr NS BID [facility] Pantoprazole Sodium (Protonix -) 40 mg PO DAILY [facility] Last Admin: 12/01/18 08:59 Dose: 40 mg Tiotropium [place] (Spiriva Respimat) 2 puff IH DAILY [facility] Last Admin: 12/01/18 10:57 Dose: 2 puff Trazodone HCl (Desyrel -) 100 mg PO HS [facility] Last Admin: 11/30/18 22:03 Dose: 100 mg Zolpidem Tartrate (Ambien -) 5 mg PO HS PRN PRN Reason: INSOMNIA - Allergies Allergies: Allergies Allergy/AdvReac Type Severity Reaction Status Date / Time No Known Allergies Allergy Verified 04/14/18 15:47 - Current Living Status Usual Living Arrangement: With Child - Current Mental Status Evaluation Appearance: Well Groomed Attitude: Cooperative - Affect Affect: Constrictive Appropriateness: Appropriate to Content - Mood Mood: Irritable - Speech/Language Expressive: Coherent - Psychomotor Activity Psychomotor Activity: Normal - Thought Process Thought Process: Intact - Thought Content Hallucinations: Absent Delusions: Absent - Self Perception Self Perception: No Impairment - Cognition Attention: Alert Orientation: Time Memory, Immediate Recall: Intact Memory, Short Term: 2/3 Memory, Remote with Promptin/3 - Concentration Serial Sevens Intact: No Simple Calculations Intact: Yes - Abstraction Proverb Interpretation: Intact Judgement: Intact - Insight Insight: Intact - Impulse Control Impulse Control: Good Control - Suicidal Ideation Suicidal Ideation: No - Homicidal Ideation Homicidal Ideation: No Assessment/Plan 1) Patient is not suicidal at this time. Can b e Discharged.
--- NOTE | 2018-12-01 15:16 | DS ---
Physical Exam: SUBJECTIVE: Patient seen and examined at bedside. Refused interview. Refused physical examination. Requested to speak with palliative care. OBJECTIVE: Vital Signs Period Temp Pulse Resp BP Sys/Whitaker Pulse Ox Last 24 Hr 97.8 F-98.0 F 60-70 20-20 127-130/75-75 98-100 PHYSICAL EXAM Refused physical examination. LABS Laboratory Results - last 24 hr 11/30/18 11/30/18 11/30/18 14:34 14:34 14:34 PT with INR 16.50 H INR 1.39 H Sodium 138 Potassium 3.2 L Chloride 103 Carbon Dioxide 23 Anion Gap 11 BUN 57 H Creatinine 4.7 H Creat Clearance w eGFR 12.25 Random Glucose 99 Calcium 8.8 Magnesium 2.6 H Total Bilirubin 1.2 H AST 21 ALT 18 Alkaline Phosphatase 174 H Creatine Kinase 37 Troponin I 0.06 H B-Natriuretic Peptide 37674.8 H Total Protein 6.6 Albumin 3.4 Blood Type A POSITIVE Antibody Screen Negative HOSPITAL COURSE: Date of Admission:11/30/18 Patient is a 73 y/o M w/ PMHx ESRD on HD, HTN, AVR, chronic thrombocytopenia, dHF, stable AAA, CAD s/p CABG, Afib on AC, COPD, p/w worsening SOB. He has refused further hemodialysis for 3 days prior to admission. He expresses wish to stop hemodialysis and transition to home hospice care. Nephrology and psychiatry were consulted. The patient is alert and fully oriented, with decision-making capacity. The consequences of stopping HD, including progression of signs and symptoms of ESRD inevitably leading to , were fully explained to the patient and his family at bedside. All questions were asked and answered. The patient understands and accepts these consequences. He was discharged to home hospice care. Date of Discharge: 12/01/18 Minutes to complete discharge: 40 Discharge Summary Reason For Visit: CHRONIC KIDNEY DISEASE WITH ESRD Current Active Problems Afib (Acute) COPD exacerbation (Acute) ESRD (end stage renal disease) (Acute) ESRD (end stage renal disease) (Acute) Hypokalemia (Acute) Palliative care encounter (Acute) S/P AVR (Acute) SOB (shortness of breath) (Acute) Thrombocytopenia (Acute) Condition: Guarded - Instructions Diet, Activity, Other Instructions: You were hospitalized with symptoms of progression of chronic lung and kidney disease. You have elected to discontinue dialysis treatment. You have affirmed understanding the implications of this decision. Resume taking your home medications. Home hospice care has been arranged through our social work department. Disposition: VNS/HOME HEALTH CARE - Home Medications Comprehensive Discharge Medication List: Ambulatory Orders Apixaban [Eliquis] 2.5 mg PO DAILY 04/14/18 Aspirin [ASA -] 81 mg PO DAILY 04/14/18 Atorvastatin Ca [Lipitor] 20 mg PO HS 04/14/18 Azelastine HCl [Astepro] 1 - 2 spr NS BID 04/14/18 Budesonide/Formeterol Fumarate [SYMBICORT 160/4.5mcg -] 1 inh PO BID 04/14/18 Carvedilol [Coreg -] 12.5 mg PO BID 04/14/18 Cetirizine HCl [All Day Allergy] 10 mg PO DAILY 04/14/18 Cholecalciferol (Vitamin D3) [Vitamin D3] 3,000 unit PO DAILY 04/14/18 Diltiazem HCl [Cartia Xt] 180 mg PO DAILY 04/14/18 Levalbuterol Tartrate [Xopenex Hfa] 15 gm IH TID 04/14/18 Montelukast Sodium [Singulair] 10 mg PO DAILY 04/14/18 Omeprazole Magnesium [Prilosec Otc] 40 mg PO DAILY 04/14/18 Tiotropium [place] [Spiriva] 1 inh PO DAILY 04/14/18 Triamcinolone Acetonide [Nasacort] 10.8 ml NS BID 04/14/18 Zolpidem Tartrate [Ambien] 10 mg PO HS 04/14/18 traZODone HCL [Trazodone HCl] 100 mg PO HS 04/14/18 Levalbuterol HCl [Xopenex] 1.25 mg IH PRN PRN 10/15/18 Lisinopril 5 mg PO DAILY 10/15/18 Multivit-Min/FA/Lycopen/Lutein [Centrum Silver Men Tablet] 1 each PO DAILY 10/15 This patient is new to me today: Yes Date on this admission: 12/01/18 Emergency Visit: Yes ED Registration Date: 11/30/18 Care time: The patient presented to the Emergency Department on the above date and was hospitalized for further evaluation of their emergent condition. Critical Care patient: No - Discharge Referral Referred to [facility] No
--- NOTE | 2018-12-01 15:27 | CON.PULM ---
Consult Consult Specialty:: PULMONARY Referred by:: Dr Uriarte Reason for Consultation:: shortness of breath, cough - History of Present Illness Chief Complaint: wants to stop HD History of Present Illness: 73yo male with h/o HTN, CAD s/p CABG, atrial fibrillation, h/o AVR, LV diastolic dysfunction, ESRD on HD, COPD, chronic hypoxic respiratory failure, interstitial lung disease from 05/18 exposure who was admitted after deciding to terminate HD. c/o worsening shortness of breath and cough. Cough productive of white sputum. Maintained on xopenex inhalers. Was deemed not a surgical candidate for a renal transplant due to poor lung function. Does not want any further work up. - History Source History Provided By: Patient, Family Member, Medical Record Limitations to Obtaining History: No Limitations - Past Medical History Cardio/Vascular: Yes: AFIB, CAD, CHF Pulmonary: Yes: COPD Gastrointestinal: Yes: Constipation, GI Bleed Renal/: Yes: Renal Failure, Renal Inusuff - Past Surgical History Past Surgical History: Yes: AV Fistula/Graft, CABG, Permanent Pacemaker - Alcohol/Substance Use Hx Alcohol Use: No History of Substance Use: reports: None - Smoking History Smoking history: Never smoked Have you smoked in the past 12 months: No If you are a former smoker, when did you quit?: 1989 - Social History Usual Living Arrangement: With Child 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, 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 History of Recent Travel: No Home Medications - Allergies Allergies/Adverse Reactions: Allergies Allergy/AdvReac Type Severity Reaction Status Date / Time No Known Allergies Allergy Verified 04/14/18 15:47 - Home Medications Home Medications: Ambulatory Orders Apixaban [Eliquis] 2.5 mg PO DAILY 04/14/18 Aspirin [ASA -] 81 mg PO DAILY 04/14/18 Atorvastatin Ca [Lipitor] 20 mg PO HS 04/14/18 Azelastine HCl [Astepro] 1 - 2 spr NS BID 04/14/18 Budesonide/Formeterol Fumarate [SYMBICORT 160/4.5mcg -] 1 inh PO BID 04/14/18 Carvedilol [Coreg -] 12.5 mg PO BID 04/14/18 Cetirizine HCl [All Day Allergy] 10 mg PO DAILY 04/14/18 Cholecalciferol (Vitamin D3) [Vitamin D3] 3,000 unit PO DAILY 04/14/18 Diltiazem HCl [Cartia Xt] 180 mg PO DAILY 04/14/18 Levalbuterol Tartrate [Xopenex Hfa] 15 gm IH TID 04/14/18 Montelukast Sodium [Singulair] 10 mg PO DAILY 04/14/18 Omeprazole Magnesium [Prilosec Otc] 40 mg PO DAILY 04/14/18 Tiotropium [place] [Spiriva] 1 inh PO DAILY 04/14/18 Triamcinolone Acetonide [Nasacort] 10.8 ml NS BID 04/14/18 Zolpidem Tartrate [Ambien] 10 mg PO HS 04/14/18 traZODone HCL [Trazodone HCl] 100 mg PO HS 04/14/18 Levalbuterol HCl [Xopenex] 1.25 mg IH PRN PRN 10/15/18 Lisinopril 5 mg PO DAILY 10/15/18 Multivit-Min/FA/Lycopen/Lutein [Centrum Silver Men Tablet] 1 each PO DAILY 10/15 Family Disease History - Family Disease History Family Disease History: Diabetes: Father ( from hear disease ), Mother ( diesd from heart disease ), Sister ( 2 sisters have cancer, detail not available ), Daughter (healthy ) Review of Systems - Review of Systems Constitutional: reports: Weakness. denies: Chills, Fever Eyes: denies: Recent Change in Vision HENT: denies: Nasal Congestion, Throat Pain Neck: denies: Stiffness, Tenderness Cardiovascular: reports: Shortness of Breath. denies: Chest Pain Respiratory: reports: Cough, Exercise Intolerance, SOB, SOB on Exertion. denies : Hemoptysis, Wheezing Gastrointestinal: denies: Abdominal Pain, Nausea, Vomiting Genitourinary: denies: Dysuria, Hematuria Neurological: denies: Dizziness, Headache Endocrine: denies: Unexplained Weight Loss Physical Exam Vital Sings: Vital Signs Temperature 98.0 F 12/01/18 10:00 Pulse Rate 70 12/01/18 10:00 Respiratory Rate 20 12/01/18 10:00 Blood Pressure 127/75 12/01/18 10:00 O2 Sat by Pulse Oximetry (%) 98 12/01/18 09:00 Constitutional: Yes: Calm Eyes: Yes: Conjunctiva Clear, EOM Intact HENT: Yes: Atraumatic, Normocephalic Neck: Yes: Supple, Trachea Midline Cardiovascular: Yes: Pulse Irregular Respiratory: Yes: Rales (basilar) ...Clubbing: No Gastrointestinal: Yes: Normal Bowel Sounds, Soft. No: Tenderness Edema: Yes Neurological: Yes: Alert, Oriented Labs: CBC, BMP 11/30/18 14:34 11/30/18 14:34 Imaging - Results Chest X-ray: Report Reviewed, Image Reviewed (mild congestive changes, bibasilar atelectasis) Assessment/Plan ESRD on HD Chronic Hypoxic Respiratory Failure on home O2 COPD Interstitial Lung Disease from 05/18 Exposure CAD s/p CABG h/o AVR Atrial Fibrillation HTN - continue home inhaler regimen - pt has decided on stopping HD due to poor quality of life - O2 to keep SpO2 >90% - offered to repeat CT chest noncontrast to assess extent of ILD but pt declining at this time - please call if further questions Thank you for this consult Mani Sanchez MD
--- NOTE | 2018-12-01 20:09 | PN ---
Teaching Attending Note Name of Resident: Gabriel Fields ATTENDING PHYSICIAN STATEMENT I saw and evaluated the patient. I reviewed the resident's note and discussed the case with the resident. I agree with the resident's findings and plan as documented. SUBJECTIVE: No complaints except that he would like to stop HD and any invasive intervention. He is weary and unhappy with his quality of life on HD. No chest pain/palps/fevers/chills/headache/visual disturbance/lneurological signs or symptoms. He complains of chronic SOB and dyspnea. OBJECTIVE: Afebrile, Hemodynamically Stable Last Vital Signs Temp Pulse Resp BP Pulse Ox 98.0 F 70 20 127/75 98 12/01/18 10:00 12/01/18 10:00 12/01/18 10:12/01/18 10:12/01/18 09:00 HEENT - Atraumatic, Normocephalic. Heart - S1, S2, SM Lungs - bilateral lower zone crackles Abdomen - Soft, non-tender. Bowel Sounds nromal. Extremities - no calf swelling/tenderness. Mild venous stasis. Neuro -AAO x 3. Tone/Power normal all 4 extremities. RUE exam limited due to decreased ROM about R shoulder after orthopedic surgery. Home Medications Medication Instructions Recorded Apixaban [Eliquis] 2.5 mg PO DAILY 04/14/18 Aspirin [ASA -] 81 mg PO DAILY 04/14/18 Atorvastatin Ca [Lipitor] 20 mg PO HS 04/14/18 Azelastine HCl [Astepro] 1 - 2 spr NS BID 04/14/18 Budesonide/Formeterol Fumarate 1 inh PO BID 04/14/18 [SYMBICORT 160/4.5mcg -] Carvedilol [Coreg -] 12.5 mg PO BID 04/14/18 Cetirizine HCl [All Day Allergy] 10 mg PO DAILY 04/14/18 Cholecalciferol (Vitamin D3) 3,000 unit PO DAILY 04/14/18 [Vitamin D3] Diltiazem HCl [Cartia Xt] 180 mg PO DAILY 04/14/18 Levalbuterol Tartrate [Xopenex Hfa] 15 gm IH TID 04/14/18 Montelukast Sodium [Singulair] 10 mg PO DAILY 04/14/18 Omeprazole Magnesium [Prilosec Otc] 40 mg PO DAILY 04/14/18 Tiotropium [place] [Spiriva] 1 inh PO DAILY 04/14/18 Triamcinolone Acetonide [Nasacort] 10.8 ml NS BID 04/14/18 Zolpidem Tartrate [Ambien] 10 mg PO HS 04/14/18 traZODone HCL [Trazodone HCl] 100 mg PO HS 04/14/18 Levalbuterol HCl [Xopenex] 1.25 mg IH PRN PRN 10/15/18 Lisinopril 5 mg PO DAILY 10/15/18 Multivit-Min/FA/Lycopen/Lutein 1 each PO DAILY 10/15/18 [Centrum Silver Men Tablet] ASSESSMENT/PLAN: 73 year old Male with HTN, CAD s/p CABG, SSS s/p PPM, s/p AVR, Chronic Thrombocytopenia, Chronic Diastolic CHF, Stable AAA, Atrial Fibrillation on AC, Chronic Respiratory Failure secondary to COPD/ILD, sent to Ed by Nephrology due to refusal of HD. Patient wants no further invasive management strategies including withdrawal from HD. He understands that this will significantly shorten his survival and that will be imminent in days to weeks. He verbalized understanding and had capacity for medical decision making. 1. ESRD on HD - now withdrawing from HD services. Would like to return home without FAMILY LIFE COUNSELOR. He understands the implications and expected outcome. He and familty have agreed for hospice at home management, with comfort measures. 2. CAD s/p CABG - no chest pain, stable. On Aspirin, Statin, Coreg, Lisinopril. 3. HTN - on Lisinopril, Coreg, Diltiazem. 4. HLD - on Statin. 5. Atrial Fibrillation/SSS s/p PPM - on Coreg and anticoagulation with Eliquis. 6. Chronic Respiratory Failure seocndary to COPD/ILD Continue supplemental O2 at home along with further recommendations by Pulmonary including Symbicort, Spiriva, Bronchodilator (Levalbuterol) Nebs prn 7. Chronic Systolic CHF - no current evidence of decompensation - on BB and GABE- I. GI Px - PPI Dispo - home with Palliative Care - for further rationalization of medications and comfort measures by Palliative Care
[2018-12-01] MEDS ORDERED: MONTELUKAST NA 10 MG TABLET PO SCH (22:00)
== END 2018-12-01 15:31 | disposition home health service (06) | DRG 291 ==
LOC: JER 12:53 → JERBED 16:32 → J8W 19:26
PROVIDERS: ADMIT Internal Medicine
DX: I13.2 Hypertensive heart and chronic kidney disease with heart failure and with stage 5 chronic kidney disease, or end stage renal disease (principal); N18.6 End stage renal disease; I50.32 Chronic diastolic (congestive) heart failure; J96.11 Chronic respiratory failure with hypoxia; J44.9 Chronic obstructive pulmonary disease, unspecified; N40.0 Benign prostatic hyperplasia without lower urinary tract symptoms; Z95.1 Presence of aortocoronary bypass graft; G47.00 Insomnia, unspecified; Z95.2 Presence of prosthetic heart valve; D69.6 Thrombocytopenia, unspecified; I25.10 Atherosclerotic heart disease of native coronary artery without angina pectoris; I48.91 Unspecified atrial fibrillation; Z79.01 Long term (current) use of anticoagulants; E87.6 Hypokalemia; Z51.5 Encounter for palliative care; Z99.2 Dependence on renal dialysis; Z99.81 Dependence on supplemental oxygen
CPT/HCPCS: 36415; 71045-TC-FY; 80053; 82550; 83735; 83880; 84484; 85025; 85610; 86850; 86900; 86901; 87081; 93005; 93010; 99285-25